=== PATIENT | female | born 1970 | race Caucasian/White ===

== ENCOUNTER 2019-07-09 12:17 | Emergency (ER) | payer MEDICAID, SELFPAY ==
[2019-07-09 12:27] VITALS: BP 139/81; PULSE 85; RESP 16; TEMP 36.4; O2SAT 97; BMI 31.2
--- NOTE | 2019-07-09 12:44 | ECG_ITS ---
Measurements Intervals [place] Rate: 82 P: 58 [place]: 175 QRS: 46 QRSD: 86 T: 58 QT: 354 QTc: 415 SINUS RHYTHM WITH SINUS ARRHYTHMIA LOW QRS VOLTAGE IN PRECORDIAL LEADS [QRS DEFLECTION < 1.0 mV IN CHEST LEADS] NONSPECIFIC T-WAVE ABNORMALITY Compared to ECG 05/14/2019 15:30:07 Low QRS voltage now present Sinus tachycardia no longer present Possible ischemia no longer present T-wave abnormality still present Electronically Signed On 07-09-2019 22:23:42 RUG SCRATCHER by Donta Garnett M.D. [id number]
--- NOTE | 2019-07-09 12:44 | XR_ITS ---
WS: [id number] ONE VIEW CHEST HISTORY: 48 years old Female with chest pain AP upright chest comparison 05/14/2019 FINDINGS: No pneumothorax, pleural effusion, consolidation/atelectasis. Cardiomediastinal silhouette and pulmon viki vascular markings unremarkable. No subdiaphragmatic free air. Prior cholecystectomy. XR/XR chest 1V portable [id number] IMPRESSION: No acute cardiopulmonary findings, and no significant change from 05/14/2019.
--- NOTE | 2019-07-09 12:45 | ED_ITS ---
Entered by Lisandro Enriquez, acting as scribe for Susana Willett DO HPI - Chest Pain General: Chief Complaint: Chest Pain Stated Complaint: cp Time Seen by Provider: 07/09/19 12:44 History of Present Illness: HPI narrative: 48 yo female presents with chest pain. Pt states that she went to a confucianist event today, she started having chest pain and she took an aspirin. Pt states that she waited for about 30 minutes and took a nitro because the pain wouldn't go away after the aspirin. pt states that she has chest heaviness as well. pt states that she has a headache. pt states that she MD complaint: chest pain Associated symptoms: Deny abdominal pain, diaphoresis, dyspnea, fever(s), nausea, palpitations, syncope or vomiting Review of Systems Const: Denies: fever, chills, body aches, change in appetite, change in weight, fatigue, malaise, night sweats or diaphoresis Eyes: Denies: change in vision, blurry vision, blind spots, photophobia, eye discomfort, eye discharge, eye redness or yellow eyes ENMT: Denies: throat pain, uvular edema, enlarged tonsils, painful swallowing, hoarseness, mouth pain, swelling of lips/tongue or oral sores/lesions Card: Reports: chest pain; Denies: palpitations, irregular heart rhythm, edema, swelling of feet/ankles, lightheadedness or syncope Resp: Denies: shortness of breath, productive cough or non-productive cough GI: Denies: abdominal pain, nausea, vomiting, vomiting blood, coffee grounds in vomit, difficulty swallowing or heartburn/indigestion : Denies: flank pain, difficulty urinating, painful urination, urinary frequency, urinary urgency, urinary hesitancy or urinary dribbling Musc: Denies: neck pain, back pain, extremity pain, extremity swelling, joint pain, joint swelling, redness, joint warmth or joint stiffness Skin/Breast: Denies: rash, itching, redness, sensitivity to light, skin pain, skin tenderness, skin swelling or new lesion Neuro: Denies: headache, numbness in extremities, weakness in extremities, changes in sensation, lack of coordination, difficulty walking, frequent falls, dizziness or slurred speech Psych: Denies: anxiety, depression, mood swings, panic attacks, sleeping less or sleeping more Endo: Denies: excessive urination, excessive thirst, tired all the time, cold intolerance, excessive sweating or flushing Sushil/Lymph: Denies: easy bruising, easy bleeding, petechiae, purpura or enlarged lymph nodes PFSH ED PFSH: Statuses (acute, chronic, etc) shown below reflect problem list status as previously entered and may not be historically accurate Medical History COPD (chronic obstructive pulmonary disease) (Acute) CVA (cerebral vascular accident) (Acute) Depression (Acute) Surgical History H/O laparoscopy (Acute) H/O: hysterectomy (Acute) History of cholecystectomy (Acute) History of tubal ligation (Acute) Hx of oophorectomy (Acute) Social History Smoking and tobacco status: never smoked Physical Exam Const: COMMON NORMALS: no apparent distress, oriented x3 and no limitations GENERAL APPEARANCE: cooperative HENMT: COMMON NORMALS: normocephalic HEAD & SCALP: normocephalic THROAT: no uvular edema Eye: COMMON NORMALS: PERRL GENERAL EYE: normal appearance of both eyes VISUAL ACUITY: Yes acuity normal PUPIL: Yes PERRL Neck/C-Spine: COMMON NORMALS: full ROM, no lymphadenopathy, supple and no JVD Lymph: LYMPHATIC: no lymphadenopathy noted Chest: COMMONS NORMALS: inspection of chest normal Resp: COMMON NORMALS: normal respiratory effort Cardio: COMMON NORMALS: no JVD, regular rate and regular rhythm RATE: regular rate RHYTHM: regular rhythm GI: COMMON NORMALS: normal to inspection, nondistended, normoactive bowel sounds : COMMON NORMALS: Yes no CVA tenderness BLADDER/KIDNEY EXAM: Yes no CVA tenderness Back/Pelvis: COMMON NORMALS: no CVA tenderness Extremity: COMMON NORMALS: normal to inspection and full ROM Neuro: COMMON NORMALS: oriented x3 Psych: COMMON NORMALS: mental status grossly normal Skin: COMMON NORMALS: no rashes or lesions noted GENERAL SKIN EXAM: no rashes or lesions noted Course ED course: Patient admitted to room 15, an IV established and labs drawn. CXR and EKG obtained. Patient admiinistered Morphine 4 mg IV and Zofran 4 mg IV. Her cardiac enzymes remained normal x 2 and EKG stable, cxr was read as normal. She continued to complain of pain so she was given Toradol 30 g IV. She was discharged home in stable and improved condition. She was advised to follow up with her PCP. Vital Signs: Vital signs: Vital Signs Temperature 97.5 F L 07/09/19 12:27 Pulse Rate 85 07/09/19 12:27 Respiratory Rate 16 07/09/19 12:27 Blood Pressure 139/81 07/09/19 12:27 Pulse Oximetry 97 07/09/19 12:27 MDM - Chest Pain Lab Data: Labs: Lab Results 07/09/19 07/09/19 07/09/19 Range/Units 13:06 13:06 13:06 WBC 7.3 (4.0-10.0) 10^3/ uL RBC 4.82 (4.1-5.3) 10^6/u L Hgb 13.7 (11.5-15.3) g/dL Hct 41.5 (37.0-47.0) % MCV 86.1 (81-99) fL MCH 28.4 (28.0-34.0) pg MCHC 33.0 (30.0-36.0) g/dL RDW 13.1 (12.1-15.1) % Plt Count 315 (130-400) 10^3/c mm MPV 9.8 (7.4-10.4) fL Neut % (Auto) 59.7 % Lymph % (Auto) 28.3 % [place] % (Auto) 8.3 % Eos % (Auto) 2.8 % Baso % (Auto) 0.6 % Neut # (Auto) 4.4 (1.8-7.7) 10^3/u L Lymph # (Auto) 2.1 (0.8-4.8) 10^3/u L [place] # (Auto) 0.6 (0.2-0.9) 10^3/u L Eos # (Auto) 0.2 (0.0-0.8) 10^3/u L Baso # (Auto) 0.0 (0.0-0.1) 10^3/u L Nucleated RBC % (a uto) 0 % Nucleated RBCs # 0.0 /100WBC PT 13.20 (10.5-13.3) SECO NDS INR 0.97 (0.8-1.2) APTT 28.1 (23.9-36.7) SECO NDS D-Dimer <= 0.27 (0-0.59) ug/mIFE U Sodium 141 (136-145) mmol/L Potassium 3.7 (3.5-5.1) mmol/L Chloride 103 (98-107) mmol/L Carbon Dioxide 27 (22-29) mmol/L Anion Gap 14.7 (5-19) BUN 15 (6-20) mg/dL Creatinine 0.7 (0.5-0.9) mg/dL GFR Calculation 89.7 L (90-130) mL/min Glucose 120 H (65-115) mg/dL Calcium 9.8 (8.5-10.5) mg/dL Total Bilirubin 0.2 (0.15-1.2) mg/dL AST 17 (0-32) U/L ALT 18 (0-33) U/L Alkaline Phosphata se 96 (35-105) IU/L Troponin T Baselin e (0-10) ng/mL NT-Pro-B Natriuret Pep 8 (0-125) pg/mL Total Protein 0.2 L (6.6-8.7) g/dL Albumin 3.9 (3.5-5.2) g/dL Globulin -3.7 L (1.3-4.6) g/dL 07/09/19 Range/Units 13:06 WBC (4.0-10.0) 10^3/ uL RBC (4.1-5.3) 10^6/u L Hgb (11.5-15.3) g/dL Hct (37.0-47.0) % MCV (81-99) fL MCH (28.0-34.0) pg MCHC (30.0-36.0) g/dL RDW (12.1-15.1) % Plt Count (130-400) 10^3/c mm MPV (7.4-10.4) fL Neut % (Auto) % Lymph % (Auto) % [place] % (Auto) % Eos % (Auto) % Baso % (Auto) % Neut # (Auto) (1.8-7.7) 10^3/u L Lymph # (Auto) (0.8-4.8) 10^3/u L [place] # (Auto) (0.2-0.9) 10^3/u L Eos # (Auto) (0.0-0.8) 10^3/u L Baso # (Auto) (0.0-0.1) 10^3/u L Nucleated RBC % (a uto) % Nucleated RBCs # /100WBC PT (10.5-13.3) SECO NDS INR (0.8-1.2) APTT (23.9-36.7) SECO NDS D-Dimer (0-0.59) ug/mIFE U Sodium (136-145) mmol/L Potassium (3.5-5.1) mmol/L Chloride (98-107) mmol/L Carbon Dioxide (22-29) mmol/L Anion Gap (5-19) BUN (6-20) mg/dL Creatinine (0.5-0.9) mg/dL GFR Calculation (90-130) mL/min Glucose (65-115) mg/dL Calcium (8.5-10.5) mg/dL Total Bilirubin (0.15-1.2) mg/dL AST (0-32) U/L ALT (0-33) U/L Alkaline Phosphata se (35-105) IU/L Troponin T Baselin e 6 (0-10) ng/mL NT-Pro-B Natriuret Pep (0-125) pg/mL Total Protein (6.6-8.7) g/dL Albumin (3.5-5.2) g/dL Globulin (1.3-4.6) g/dL Imaging Data^: CXR: Radiologist's impression: Signed Patient: Gale Veloz Unit #: [id number] : 1970 Age/Sex: 48 / F ADM Date: 07/09/19 Loc: ER Room/Bed: Attending Dr: Ordering Provider/Ordering MD: Susana Willett DO Date of Service: 07/09/19 Procedure(s): XR chest 1V portable [id number] Accession Number(s): [id number] Report Number: [id number] WS: [id number] ONE VIEW CHEST HISTORY: 48 years old Female with chest pain AP upright chest comparison 05/14/2019 FINDINGS: No pneumothorax, pleural effusion, consolidation/atelectasis. Cardiomediastinal silhouette and pulmonary vascular markings unremarkable. No subdiaphragmatic free air. Prior cholecystectomy. XR/XR chest 1V portable [id number] IMPRESSION: No acute cardiopulmonary findings, and no significant change from 05/14/2019. Dictated By: Misty Richard MD Signed By: Misty Richard MD Signed Date/Time: 07/09/19 1355 EKG Data^: EKG 1: Attestation: I personally reviewed and interpreted this EKG as follows: EKG interpretation date: 07/09/19 EKG interpretation time: 13:15 Interpretation: Sinus rhythm, vent rate 87 bpm, No st elevation, no ectopy EKG 2: Attestation: I personally reviewed and interpreted this EKG as follows: EKG interpretation date: 07/09/19 EKG interpretation time: 15:13 Prior EKG tracings: available for review Interpretation: Sinus rhythm, no st elevation, vent rate 82 bpm, normal axis Discharge Plan Discharge Patient Disposition: Home, Self-Care Clinical Impression: Atypical chest pain Condition: Stable Discharge Orders: Discharge Order (Routine); Ordered 07/09/19 Ordered By: Susana Willett Referrals: Marina Rapp DO [Primary Care Provider] - Discharge Diet: Usual diet Discharge Activity: Resume usual activity Activity Restrictions/Additional Instructions: Followo up with pcp, use tylenon/motrin for discomfort. Continue current medictaions. Coding Level of Care Code ED Warehouse Helper for Chg Fwd Exam Problem Focused The documentation recorded by the Mina fabian Kialy, accurately reflects the service I personally performed and the decisions made by Brennon arauz Connie, DO
[2019-07-09 13:16] LABS: Basophils % 0.6 %; Eosinophils # 0.2 10^3/uL (0.0-0.8); Eosinophils % 2.8 %; Hematocrit 41.5 % (37.0-47.0); Hemoglobin 13.7 g/dL (11.5-15.3); Lymphocytes # 2.1 10^3/uL (0.8-4.8); Lymphocytes % 28.3 %; Mean Corpuscular Hemoglobin 28.4 pg (28.0-34.0); Mean Corpuscular Volume 86.1 fL (81-99); Mean Platelet Volume 9.8 fL (7.4-10.4); Monocytes # 0.6 10^3/uL (0.2-0.9); Monocytes % 8.3 %; Neutrophils # 4.4 10^3/uL (1.8-7.7); Neutrophils % 59.7 %; Nucleated Red Blood Cells % 0 %; Platelet Count 315 10^3/cmm (130-400); Red Blood Count 4.82 10^6/uL (4.1-5.3); Red Cell Distribution Width 13.1 % (12.1-15.1); White Blood Count 7.3 10^3/uL (4.0-10.0)
[2019-07-09 13:35] LABS: INR 0.97 (0.8-1.2); Partial Thromboplastin Time 28.1 SECONDS (23.9-36.7)
[2019-07-09 13:38] LABS: D Dimer <= 0.27 ug/mIFEU (0-0.59)
[2019-07-09] MEDS: morphine 4 mg/mL SDV 1 mL 2 MG IVP (13:38)
[2019-07-09] MEDS: ondansetron 2 mg/ML SDV 2 mL 4 MG IVP (13:38)
[2019-07-09] MEDS: sodium chloride 0.9% 500 ML 999 ML IV (13:38)
[2019-07-09 13:40] LABS: Troponin(5th) Baseline 6 ng/mL (0-10)
[2019-07-09 13:49] LABS: Alanine Aminotransferase 18 U/L (0-33); Albumin Level 3.9 g/dL (3.5-5.2); Alkaline Phosphatase 96 IU/L (35-105); Anion Gap 14.7 (5-19); Aspartate Amino Transferase 17 U/L (0-32); Blood Urea Nitrogen 15 mg/dL (6-20); Calcium 9.8 mg/dL (8.5-10.5); Carbon Dioxide 27 mmol/L (22-29); Chloride 103 mmol/L (98-107); Glomerular Filtration Rate 89.7 mL/min (90-130); Glucose 120 mg/dL (65-115); NT Pro B Type Natriuretic Pept 8 pg/mL (0-125); Potassium 3.7 mmol/L (3.5-5.1); Sodium 141 mmol/L (136-145); Total Bilirubin 0.2 mg/dL (0.15-1.2); Total Protein 0.2 g/dL (6.6-8.7)
--- NOTE | 2019-07-09 14:44 | ECG_ITS ---
Measurements Intervals [place] Rate: 87 P: 72 [place]: 171 QRS: 71 QRSD: 82 T: 149 QT: 366 QTc: 442 SINUS RHYTHM LOW QRS VOLTAGE IN PRECORDIAL LEADS [QRS DEFLECTION < 1.0 mV IN CHEST LEADS] NONSPECIFIC T-WAVE ABNORMALITY Compared to ECG 05/14/2019 15:30:07 Low QRS voltage now present Sinus tachycardia no longer present Possible ischemia no longer present T-wave abnormality still present Electronically Signed On 07-09-2019 22:25:37 PROPERTY LOSS INSURANCE CLAIM ADJUSTER by Donta Garnett M.D. [email or web address]
[2019-07-09 14:47] LABS: Globulin -3.7 g/dL (1.3-4.6)
[2019-07-09] MEDS: ketorolac 30 mg/mL INJ IVP (15:40)
[2019-07-09 15:49] LABS: Troponin 5 2HR Delta 0 ABS# (0-10)
[2019-07-09 16:05] VITALS: BP 122/74; PULSE 81; RESP 18; O2SAT 97
== END 2019-07-09 16:06 | disposition home or self-care (01) ==
PROVIDERS: Emergency Provider Emergency Medicine Emergency Medical Services; Family Provider Family Medicine; PCP Family Medicine
DX: R07.89 Other chest pain (principal); J44.9 Chronic obstructive pulmonary disease, unspecified; Z86.73 Personal history of transient ischemic attack (TIA), and cerebral infarction without residual deficits
CPT/HCPCS: 36415; 71045; 80053; 83880; 84484; 85025; 85378; 85610; 85730; 93005; 96360; 96374; 96375; 99282; 99284; J1885; J2270; J2405; J7040

== ENCOUNTER → 2019-07-18 07:54 | Outpatient (BNVA) | payer MEDICAID, SELFPAY | PROVIDERS: Family Provider Family Medicine; PCP Family Medicine; Visit Provider Nurse Practitioner | DX: F33.1 Major depressive disorder, recurrent, moderate (principal) | CPT/HCPCS: 99213 ==

== ENCOUNTER 2019-08-17 17:15 | Outpatient (CLI) | payer OTHER, SELFPAY ==
--- NOTE | 2019-08-17 | XR_ITS ---
WS: [id number] Left wrist, 3 views, 08/17/2019 Clinical Data: LEFT WRIST PAIN Comparison: None. Findings: No fractures or dislocations are seen. The carpal bones are intact. There is no soft tissue swelling. The distal radius and ulna are not remarkable. XR/XR wrist LT min 3V* [id number] Impression: Negative left wrist.
== END 2019-08-17 17:16 | disposition home or self-care (01) ==
LOC: RADOUTREAD 08-18 13:14
PROVIDERS: Family Provider Family Medicine; PCP Family Medicine; Visit Provider Nurse Practitioner
DX: Z01.89 Encounter for other specified special examinations (principal)

== ENCOUNTER → 2019-08-28 11:09 | Outpatient (BNVA) | payer OTHER, MEDICAID, SELFPAY | PROVIDERS: Family Provider Family Medicine; PCP Family Medicine; Visit Provider Social Worker Clinical | DX: F33.1 Major depressive disorder, recurrent, moderate (principal) | CPT/HCPCS: 90834 ==

== ENCOUNTER → 2019-09-18 07:36 | Outpatient (BNVA) | payer MEDICAID, SELFPAY | PROVIDERS: Family Provider Family Medicine; PCP Family Medicine; Visit Provider Social Worker Clinical | DX: F33.1 Major depressive disorder, recurrent, moderate (principal) | CPT/HCPCS: 90832 ==

== ENCOUNTER 2019-09-23 16:13 | Emergency (ER) | payer MEDICAID, SELFPAY ==
[2019-09-23 16:18] VITALS: BP 131/90; PULSE 84; RESP 18; TEMP 36.9; O2SAT 96; BMI 34.9
--- NOTE | 2019-09-23 16:21 | ECG_ITS ---
Measurements Intervals [place] Rate: 84 P: 62 [place]: 169 QRS: 46 QRSD: 86 T: 75 QT: 357 QTc: [address] & T-WAVE ABNORMALITY Compared to ECG 07/09/2019 15:10:34 Sinus arrhythmia no longer present T-wave abnormality still present Electronically Signed On 09-24-2019 20:21:24 CDT by Ace Nobles M.D. [id number]
--- NOTE | 2019-09-23 16:21 | XRR_ITS ---
PROCEDURE INFORMATION: Exam: XR Chest, 1 View Exam date and time: 09/23/2019 4:23 PM Age: 48 years old Clinical indication: Left-sided chest pain; Additional info: Cp TECHNIQUE: Imaging protocol: XR of the chest Views: 1 view. COMPARISON: CR XR chest 1V portable [id number] 07/09/2019 12:52 PM FINDINGS: Lungs: Unremarkable. No consolidation. There is shallow inspiration with mild basilar volume loss. There is unchanged mild basilar fibrosis. Unchanged nonspecific elevation of the right hemidiaphragm. Pleural space: Unremarkable. No pleural effusion. No pneumothorax. Heart/Mediastinum: Unremarkable. No cardiomegaly. Bones/joints: No acute abnormality. XR/XR chest 1V portable [id number] IMPRESSION: No acute findings. Unchanged exam.
[2019-09-23 16:40] LABS: Basophils # 0.1 10^3/uL (0.0-0.1); Basophils % 0.7 %; Eosinophils # 0.2 10^3/uL (0.0-0.8); Eosinophils % 1.7 %; Hematocrit 43.7 % (37.0-47.0); Hemoglobin 14.2 g/dL (11.5-15.3); Lymphocytes % 21.7 %; Mean Corpuscular HGB Conc 32.5 g/dL (30.0-36.0); Mean Corpuscular Hemoglobin 28.7 pg (28.0-34.0); Mean Corpuscular Volume 88.5 fL (81-99); Mean Platelet Volume 10.3 fL (7.4-10.4); Monocytes # 0.8 10^3/uL (0.2-0.9); Monocytes % 8.5 %; Neutrophils # 6.2 10^3/uL (1.8-7.7); Neutrophils % 67.1 %; Nucleated Red Blood Cells % 0 %; Platelet Count 268 10^3/cmm (130-400); Red Blood Count 4.94 10^6/uL (4.1-5.3); Red Cell Distribution Width 12.8 % (12.1-15.1); White Blood Count 9.2 10^3/uL (4.0-10.0)
[2019-09-23] MEDS: aspirin 81 mg Chew Tablet 324 MG PO (16:45)
[2019-09-23 16:50] LABS: INR 0.95 (0.8-1.2)
[2019-09-23 16:56] LABS: Alanine Aminotransferase 19 U/L (0-33); Albumin Level 4.2 g/dL (3.5-5.2); Alkaline Phosphatase 95 IU/L (35-105); Anion Gap 13.5 (5-19); Blood Urea Nitrogen 10 mg/dL (6-20); Calcium 9.6 mg/dL (8.5-10.5); Carbon Dioxide 28 mmol/L (22-29); Chloride 101 mmol/L (98-107); Globulin 3.9 g/dL (1.3-4.6); Glomerular Filtration Rate 89.7 mL/min (90-130); Glucose 122 mg/dL (65-115); Lipase 20 U/L (13-60); Magnesium 2.3 mg/dL (1.7-2.3); Osmolality Calculated 285 mOsm/kg (285-295); Potassium 3.5 mmol/L (3.5-5.1); Sodium 139 mmol/L (136-145); Total Bilirubin 0.3 mg/dL (0.15-1.2); Total Protein 8.1 g/dL (6.6-8.7)
[2019-09-23 16:59] LABS: Troponin(5th) Baseline 6 ng/mL (0-10)
[2019-09-23 17:06] LABS: Aspartate Amino Transferase 22 U/L (0-32)
[2019-09-23] MEDS: ondansetron 2 mg/ML SDV 2 mL 4 MG IVP (17:11)
[2019-09-23] MEDS: nitroglycerin 0.4 mg sublingual Tablet SUBLINGUAL (17:11)
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
[2019-09-23 17:18] VITALS: RESP 17
[2019-09-23 18:21] VITALS: BP 122/75; PULSE 70; RESP 17; O2SAT 97
[2019-09-23 18:50] LABS: Troponin 5 2HR Delta 0 ABS# (0-10)
[2019-09-23 19:14] VITALS: BP 104/71; PULSE 88; RESP 18; O2SAT 94
--- NOTE | 2019-09-23 22:21 | ECG_ITS ---
Measurements Intervals [place] Rate: 82 P: 61 [place]: 176 QRS: 46 QRSD: 85 T: 67 QT: 373 QTc: 437 SINUS RHYTHM NONSPECIFIC T-WAVE ABNORMALITY Compared to ECG 07/09/2019 15:10:34 Sinus arrhythmia no longer present T-wave abnormality still present Electronically Signed On 09-24-2019 20:25:33 CDT by Ace Nobles M.D. [id number]
== END 2019-09-23 19:17 | disposition home or self-care (01) ==
PROVIDERS: Emergency Medicine; Emergency Provider Emergency Medicine; Family Provider Family Medicine; PCP Family Medicine
DX: R07.89 Other chest pain (principal); Z79.82 Long term (current) use of aspirin; J44.9 Chronic obstructive pulmonary disease, unspecified; Z86.73 Personal history of transient ischemic attack (TIA), and cerebral infarction without residual deficits
CPT/HCPCS: 12345; 71045; 80053; 83690; 83735; 84484; 85025; 85610; 93005; 96374; 96375; 99283; 99284; J2405

== ENCOUNTER → 2019-10-13 07:51 | Outpatient (BNVA) | payer MEDICAID, SELFPAY | PROVIDERS: Family Provider Family Medicine; PCP Family Medicine; Visit Provider Social Worker Clinical | DX: F33.1 Major depressive disorder, recurrent, moderate (principal) | CPT/HCPCS: 90832 ==

== ENCOUNTER → 2019-10-25 07:38 | Outpatient (BNVA) | payer MEDICAID, SELFPAY | PROVIDERS: Family Provider Family Medicine; PCP Family Medicine; Visit Provider Nurse Practitioner | DX: F33.1 Major depressive disorder, recurrent, moderate (principal) | CPT/HCPCS: 99214 ==

== ENCOUNTER → 2019-10-27 07:49 | Outpatient (BNVA) | payer MEDICAID, SELFPAY | PROVIDERS: Family Provider Family Medicine; PCP Family Medicine; Visit Provider Social Worker Clinical | DX: F33.1 Major depressive disorder, recurrent, moderate (principal) | CPT/HCPCS: 90834 ==

== ENCOUNTER 2019-11-02 14:02 | Emergency (ER) | payer MEDICAID, SELFPAY ==
[2019-11-02 14:29] VITALS: BP 129/84; PULSE 100; RESP 18; TEMP 36.9; O2SAT 95; BMI 36.1
[2019-11-02 15:02] VITALS: O2SAT 94
[2019-11-02 15:12] LABS: Basophils # 0.1 10^3/uL (0.0-0.1); Basophils % 0.6 %; Eosinophils # 0.2 10^3/uL (0.0-0.8); Eosinophils % 2.4 %; Hematocrit 43.2 % (37.0-47.0); Hemoglobin 13.9 g/dL (11.5-15.3); Lymphocytes # 2.1 10^3/uL (0.8-4.8); Lymphocytes % 20.8 %; Mean Corpuscular HGB Conc 32.2 g/dL (30.0-36.0); Mean Corpuscular Hemoglobin 28.6 pg (28.0-34.0); Mean Corpuscular Volume 88.9 fL (81-99); Monocytes # 0.9 10^3/uL (0.2-0.9); Neutrophils # 6.7 10^3/uL (1.8-7.7); Neutrophils % 66.8 %; Nucleated Red Blood Cells % 0 %; Platelet Count 289 10^3/cmm (130-400); Red Blood Count 4.86 10^6/uL (4.1-5.3); Red Cell Distribution Width 13.2 % (12.1-15.1)
[2019-11-02 15:20] LABS: Add Urine Microscopic? NO
--- NOTE | 2019-11-02 15:23 | CT_ITS ---
WS: [id number] CT abdomen pelvis w con* [id number] REASON FOR EXAM: abd pain IV CONTRAST ADMINISTERED: Omnipaque 300, 95 mL. TOTAL EXAM DLP: 1310.[address] scans at [facility] use at least one of these dose optimization techniques: automat ed exposure control; mA and/or kV adjustment per patient size (includes targeted exams where dose is matched to clinical indication); or iterative reconstruction. FINDINGS: The lower lung colon and mediastinum were normal. The liver show normal enhancement there is no lesions seen no masses. The gallbladder surgically absent. The pancreas head, body, tail were normal. The spleen, stomach, right and left adrenal glands were normal. The aorta inferior vena cava were normal. The right and left kidneys were normal no stones no hydronephrosis no hydroureter. The right lower quadrant shows normal appearance of the appendix no inflammatory changes are seen. The remaining colon was normal no diverticulosis or diverticulitis. The small bowel patterns are normal and not dilated no thickening of the rodriguez are seen. No umbilical hernia is seen. In the pelvis the bladder was normal. The uterus is and ovaries are not seen. The rectum was normal. The lumbar spine and bony pelvis were normal. CT/CT abdomen pelvis w con* [id number] IMPRESSION: Normal CT abdomen pelvis with and without contrast enhancement.
--- NOTE | 2019-11-02 15:23 | XR_ITS ---
WS: [id number] XR chest 1V portable [id number] REASON FOR EXAM: dyspnea/cough FINDINGS: The heart and mediastinal interfaces normal. The peripheral lungs are well aerated. No pneumonia, congestive failure, pleural effusion, pulmonary edema. The overall appearance the chest is similar to September 23, 2019. The hilum and apices normal. No osseous abnormalities. XR/XR chest 1V portable [id number] IMPRESSION: Negative chest for active pathology.
--- NOTE | 2019-11-02 15:24 | ED_ITS ---
HPI - Abdominal Pain General: Chief Complaint: Abdominal Pain Stated Complaint: right sided abd pain Time Seen by Provider: 11/02/19 14:28 History of Present Illness: HPI narrative: 48-year-old female comes right lower quadrant pain for the last 3 days she has nausea she noticed that the pain is worse when she eats. She denies any hematemesis or coffee-ground emesis she has had a few episodes of diarrhea. This can wax and wane a bit on and off she is had a temp at night up to 101 it seemed to resolve during the day. She denies dysuria urgency or frequency she also notes little bit of increased nonproductive cough. Is a secondary note she has been seeing Dr. Nobles recently had some atypical chest pain she was started on isosorbide mononitrate and is scheduled for an outpatient stress test. She denies any other family members being sick recently. MD elicited complaint: abdominal pain Onset (ago): day(s) (3) Pain Consistency: constant and colicky Location: RLQ Severity: severe Quality: cramping and aching Exacerbating factors: eating and movement Relieving factors: rest Associated Symptoms: Reports anorexia, bloating, GI cramping, diarrhea, dyspepsia, fever(s), heartburn, nausea and poor appetite; Denies change in bowel habits, change in stool character, coffee ground emesis, constipation, dysuria, hematochezia, hematuria, hematemesis, fecal incontinence, melena and vomiting Treatments prior to arrival: antacids Review of Systems Const: Reports: fever(s) ENMT: Denies: throat pain, ear or mastoid pain, nasal discharge or nasal congestion Card: Denies: chest pain, edema, dyspnea on exertion or orthopnea Resp: Denies: dyspnea, productive cough or non-productive cough GI: Reports: nausea, heartburn, diarrhea, bloating and GI cramping; Denies: vomiting, hematemesis, coffee ground emesis, constipation, fecal incontinence, change in bowel habits, change in stool character, hematochezia or melena : Denies: dysuria or hematuria Skin/Breast: Denies: rash or pruritus PFSH ED PFSH: Medical History (Updated 11/02/19 @ 16:47 by Sonny Torres DO) COPD (chronic obstructive pulmonary disease) CVA (cerebral vascular accident) Depression Major depressive disorder, recurrent, moderate Surgical History H/O laparoscopy H/O: hysterectomy History of cholecystectomy History of tubal ligation Hx of oophorectomy Family History (Updated 10/18/19 @ 10:37 by Ana Wheeler RN) Father CAD (coronary artery disease) Cancer Diabetes Hyperlipidemia Mother Hypertension Psychiatric illness Brother Hypertension Denies family history of Clotting disorder Dementia Chronic kidney disease (CKD) Suicide Anesthesia complication Bleeding disorder Family history of premature coronary artery disease Lung disease Stroke Social History (Updated 10/18/19 @ 10:38 by Ana Wheeler RN) Smoking and tobacco status: never smoked Second hand smoke exposure: No Alcohol intake: current Alcohol intake frequency: holidays/special occasions only Alcohol type: other Physical Exam Const: COMMON NORMALS: no acute distress GENERAL APPEARANCE: cooperative and comfortable ORIENTATION/CONSCIOUSNESS: Yes awake, Yes oriented to person, Yes oriented to place and Yes oriented to time Eye: COMMON NORMALS: Equal, round and reactive pupils present, EOMs intact bilaterally, conjunctivae normal and no scleral icterus CONJUNCTIVA: Yes conjunctivae normal PUPIL: Yes Equal, round and reactive pupils present Neck/C-Spine: COMMON NORMALS: full ROM, no lymphadenopathy, supple and no JVD Lymph: LYMPHATIC: no lymphadenopathy noted and no lymphedema noted Resp: COMMON NORMALS: normal respiratory effort, No retractions, No use of accessory muscles and clear to auscultation bilaterally AUSCULTATION: clear to auscultation bilaterally Cardio: COMMON NORMALS: no JVD, regular rate, regular rhythm and No murmurs present (Cardio) RATE: regular rate RHYTHM: regular rhythm GI: COMMON NORMALS: No hepatosplenomegaly present AUSCULTATION: Yes Hypoactive bowel sounds present PALPATION: Yes Tenderness to palpation present (GI) Details: RLQ, Yes Guarding due to palpation present (GI) in the RLQ and Yes No hepatosplenomegaly present Extremity: COMMON NORMALS: normal to inspection, capillary refill normal, no clubbing, cyanosis or edema, no calf tenderness and no pedal edema Neuro: SENSORIUM/ORIENTATION: Yes oriented to person, Yes oriented to place and Yes oriented to time Skin: COMMON NORMALS: no rashes or lesions noted GENERAL SKIN EXAM: no rashes or lesions noted Course Vital Signs: Vital signs: Vital Signs Temperature 98.4 F 11/02/19 14:29 Pulse Rate 94 11/02/19 17:35 Respiratory Rate 18 11/02/19 17:35 Blood Pressure 110/68 11/02/19 17:35 Pulse Oximetry 93 11/02/19 17:35 MDM - Abdominal Pain MDM Narrative: Medical decision making narrative: Reviewed findings patient no significant findings on the CT or lab work she is doing somewhat better. Some of may be bowel spasm. On repeat abdominal exam she has no abnormality. Will discharge home with Zofran for nausea dicyclomine as needed recheck if she has any further problems she should return to the emergency room. Lab Data: Labs: Lab Results 11/02/19 11/02/19 11/02/19 Range/Units 15:00 15:00 15:00 WBC 10.0 (4.0-10.0) 10^3/ uL RBC 4.86 (4.1-5.3) 10^6/u L Hgb 13.9 (11.5-15.3) g/dL Hct 43.2 (37.0-47.0) % MCV 88.9 (81-99) fL MCH 28.6 (28.0-34.0) pg MCHC 32.2 (30.0-36.0) g/dL RDW 13.2 (12.1-15.1) % Plt Count 289 (130-400) 10^3/c mm MPV 10.0 (7.4-10.4) fL Neut % (Auto) 66.8 % Lymph % (Auto) 20.8 % [place] % (Auto) 9.0 % Eos % (Auto) 2.4 % Baso % (Auto) 0.6 % Neut # (Auto) 6.7 (1.8-7.7) 10^3/u L Lymph # (Auto) 2.1 (0.8-4.8) 10^3/u L [place] # (Auto) 0.9 (0.2-0.9) 10^3/u L Eos # (Auto) 0.2 (0.0-0.8) 10^3/u L Baso # (Auto) 0.1 (0.0-0.1) 10^3/u L Nucleated RBC % (a uto) 0 % Nucleated RBCs # 0.0 /100WBC Sodium 142 (136-145) mmol/L Potassium 3.5 (3.5-5.1) mmol/L Chloride 104 (98-107) mmol/L Carbon Dioxide 27 (22-29) mmol/L Anion Gap 14.5 (5-19) BUN 12 (6-20) mg/dL Creatinine 0.9 (0.5-0.9) mg/dL GFR Calculation 67.1 L (90-130) mL/min Glucose 113 (65-115) mg/dL Calculated Osmolal ity 291 (285-295) mOsm/k g Lactate 1.4 (0.5-2.2) mmol/L Calcium 9.6 (8.5-10.5) mg/dL Total Bilirubin 0.4 (0.15-1.2) mg/dL AST 20 (0-32) U/L ALT 22 (0-33) U/L Alkaline Phosphata se 104 (35-105) IU/L Total Protein 7.6 (6.6-8.7) g/dL Albumin 4.4 (3.5-5.2) g/dL Globulin 3.2 (1.3-4.6) g/dL Lipase 25 (13-60) U/L Urine Color (Yellow) Urine Appearance (CLEAR) Urine pH (5-7) Ur Specific Gravit y (1.005-1.030) Urine Protein (Negative) Urine Glucose (UA) (Normal) Urine Ketones (Negative) Urine Blood (Negative) Urine Nitrate (Negative) Urine Bilirubin (NEGATIVE) Urine Urobilinogen (Negative) mg/dL Ur Leukocyte Shari ase (Negative) Serum Ketones (Negative) 11/02/19 11/02/19 Range/Units 15:00 15:00 WBC (4.0-10.0) 10^3/ uL RBC (4.1-5.3) 10^6/u L Hgb (11.5-15.3) g/dL Hct (37.0-47.0) % MCV (81-99) fL MCH (28.0-34.0) pg MCHC (30.0-36.0) g/dL RDW (12.1-15.1) % Plt Count (130-400) 10^3/c mm MPV (7.4-10.4) fL Neut % (Auto) % Lymph % (Auto) % [place] % (Auto) % Eos % (Auto) % Baso % (Auto) % Neut # (Auto) (1.8-7.7) 10^3/u L Lymph # (Auto) (0.8-4.8) 10^3/u L [place] # (Auto) (0.2-0.9) 10^3/u L Eos # (Auto) (0.0-0.8) 10^3/u L Baso # (Auto) (0.0-0.1) 10^3/u L Nucleated RBC % (a uto) % Nucleated RBCs # /100WBC Sodium (136-145) mmol/L Potassium (3.5-5.1) mmol/L Chloride (98-107) mmol/L Carbon Dioxide (22-29) mmol/L Anion Gap (5-19) BUN (6-20) mg/dL Creatinine (0.5-0.9) mg/dL GFR Calculation (90-130) mL/min Glucose (65-115) mg/dL Calculated Osmolal ity (285-295) mOsm/k g Lactate (0.5-2.2) mmol/L Calcium (8.5-10.5) mg/dL Total Bilirubin (0.15-1.2) mg/dL AST (0-32) U/L ALT (0-33) U/L Alkaline Phosphata se (35-105) IU/L Total Protein (6.6-8.7) g/dL Albumin (3.5-5.2) g/dL Globulin (1.3-4.6) g/dL Lipase (13-60) U/L Urine Color Yellow (Yellow) Urine Appearance Clear (CLEAR) Urine pH 5 (5-7) Ur Specific Gravit y 1.030 (1.005-1.030) Urine Protein Neg (Negative) Urine Glucose (UA) Norm (Normal) Urine Ketones Negative (Negative) Urine Blood Neg (Negative) Urine Nitrate Negative (Negative) Urine Bilirubin Neg (NEGATIVE) Urine Urobilinogen 1 H (Negative) mg/dL Ur Leukocyte Shari ase Negative (Negative) Serum Ketones Negative (Negative) Discharge Plan Discharge Patient Disposition: Home, Self-Care Clinical Impression: Abdominal pain Condition: Stable Prescriptions: New Zofran 4 mg tablet 4 mg PO Q6H PRN (Reason: nausea and vomiting) Qty: 20 RF: 0 dicyclomine 20 mg tablet 20 mg PO QID Qty: 20 RF: 0 No Action fluoxetine 20 mg/5 mL (4 mg/mL) solution 60 mg PO DAILY Qty: 450 RF: 1 isosorbide mononitrate 30 mg tablet extended release 24 hr 30 mg PO DAILY Qty: 30 RF: 6 aspirin [Aspir-81] 81 mg Tablet,Delayed Release (Dr/Ec) 81 mg PO DAILY RF: 0 nitroglycerin [Nitrostat] 0.4 mg Tablet, Sublingual 0.4 mg SUBLINGUAL Q5M PRN (Reason: Chest Pain) RF: 0 ibuprofen 800 mg tablet 800 mg PO Q8H PRN (Reason: pain) Qty: 30 RF: 0 Discharge Orders: Discharge Order (Routine); Ordered 11/02/19 Ordered By: Sonny Torres Referrals: Marina Rapp DO [Primary Care Provider] - Discharge Diet: Clear Liquid Discharge Activity: Increase activity as tolerated Patient Instructions: Abdominal Pain (ED) Discharge Date/Time: 11/02/19 17:30 Coding Level of Care Code ED Communication Instructor for Chg Fwd Exam Comprehensive
[2019-11-02 15:25] LABS: Bilirubin Urine Neg (NEGATIVE); Blood Urine Neg (Negative); Glucose Urine UA Norm (Normal); Ketone (Acetest) Serum Negative (Negative); Ketones Urine Negative (Negative); Leukocyte Esterase Urine Negative (Negative); Nitrate Urine Negative (Negative); Protein Urine Neg (Negative); Urine Appearance Clear (CLEAR); Urine Color Yellow (Yellow); Urobilinogen Urine 1 mg/dL (Negative); pH Urine 5 (5-7)
[2019-11-02 15:29] LABS: Alanine Aminotransferase 22 U/L (0-33); Albumin Level 4.4 g/dL (3.5-5.2); Alkaline Phosphatase 104 IU/L (35-105); Anion Gap 14.5 (5-19); Aspartate Amino Transferase 20 U/L (0-32); Blood Urea Nitrogen 12 mg/dL (6-20); Calcium 9.6 mg/dL (8.5-10.5); Carbon Dioxide 27 mmol/L (22-29); Chloride 104 mmol/L (98-107); Globulin 3.2 g/dL (1.3-4.6); Glomerular Filtration Rate 67.1 mL/min (90-130); Glucose 113 mg/dL (65-115); Lactate (Lactic Acid level) 1.4 mmol/L (0.5-2.2); Lipase 25 U/L (13-60); Osmolality Calculated 291 mOsm/kg (285-295); Potassium 3.5 mmol/L (3.5-5.1); Sodium 142 mmol/L (136-145); Total Bilirubin 0.4 mg/dL (0.15-1.2); Total Protein 7.6 g/dL (6.6-8.7)
[2019-11-02] MEDS: ondansetron 2 mg/ML SDV 2 mL 4 MG IVP (15:45)
[2019-11-02] MEDS: sodium chloride 0.9% 1,000 ML 999 ML IV (15:45)
[2019-11-02] MEDS: morphine 4 mg/mL SDV 1 mL IVP (15:45)
[2019-11-02 15:50] VITALS: BP 119/70; PULSE 100; O2SAT 95
[2019-11-02] MEDS: iohexol 300 mg/mL 100 mL Btl IV (16:24)
[2019-11-02 17:35] VITALS: BP 110/68; PULSE 94; RESP 18; O2SAT 93
== END 2019-11-02 17:30 | disposition home or self-care (01) ==
PROVIDERS: Emergency Provider Family Medicine; PCP Family Medicine
DX: R10.9 Unspecified abdominal pain (principal); Z79.82 Long term (current) use of aspirin; J44.9 Chronic obstructive pulmonary disease, unspecified; Z86.73 Personal history of transient ischemic attack (TIA), and cerebral infarction without residual deficits
CPT/HCPCS: 12345; 36415; 71045; 74177; 80053; 81003; 82009; 83605; 83690; 85025; 87040; 96360; 96361; 96374; 96375; 99283; 99284; J2270; J2405; J7030; Q9967

== ENCOUNTER → 2019-11-14 07:52 | Outpatient (BNVA) | payer MEDICAID, SELFPAY | PROVIDERS: PCP Family Medicine; Visit Provider Social Worker Clinical | DX: F33.1 Major depressive disorder, recurrent, moderate (principal) | CPT/HCPCS: 90832 ==

== ENCOUNTER 2019-11-15 20:56 | Emergency (ER) | payer MEDICAID, SELFPAY ==
[2019-11-15 20:58] VITALS: BP 156/101; PULSE 103; RESP 20; TEMP 36.8; O2SAT 97; BMI 30.1
--- NOTE | 2019-11-15 21:04 | CTR_ITS ---
PROCEDURE INFORMATION: Exam: CT Head Without Contrast Exam date and time: 11/15/2019 9:10 PM Age: 48 years old Clinical indication: Altered mental status/memory loss and speech disturbance; Additional info: Symptoms of acute stroke TECHNIQUE: Imaging protocol: Computed tomography of the head without contrast. Radiation optimization: All CT scans at this facility use at least one of these dose optimization techniques: automated exposure control; mA and/or kV adjustment per patient size (includes targeted exams where dose is matched to clinical indication); or iterative reconstruction. Other technique: STROKE PROTOCOL was implemented. COMPARISON: No relevant prior studies available. RADIATION DOSE METRICS: Total DLP (mGy-cm): 766.97 FINDINGS: Brain: Normal. No hemorrhage or CT evidence of acute infarction is seen. No mass effect. Ventricles: Normal. No ventriculomegaly. Bones/joints: Unremarkable. No acute fracture. Sinuses: Visualized sinuses are unremarkable. No fluid levels. Mastoid air cells: Visualized mastoid air cells are well aerated. Soft tissues: Unremarkable. CT/CT head wo con* [id number] IMPRESSION: No acute intracranial abnormality. ASSESSMENT: ASPECTS ([place] Stroke Program Early CT Score) is 10. Radiation Dose CTDIVOL = (mGy): DLP = 766.97 (mGy-cm)
--- NOTE | 2019-11-15 21:05 | ECG_ITS ---
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 Measurements Intervals [place] Rate: 106 P: 64 RI: 144 QRS: 69 QRSD: 90 T: 74 QT: 336 QTc: 446 Interpretive Statements SINUS TACHYCARDIA NONSPECIFIC T-WAVE ABNORMALITY Compared to ECG 09/23/2019 19:02:52 Sinus rhythm no longer present T-wave abnormality still present Electronically Signed On 11-16-2019 16:26:17 CDT by Mckenzie Argueta M.D. [id number]
--- NOTE | 2019-11-15 21:07 | PC.NURSE ---
Blood glucose is 101, charge nurse and ER doctor are aware
--- NOTE | 2019-11-15 21:13 | CTR_ITS ---
PROCEDURE INFORMATION: Exam: CT Angiography Head With Contrast Exam date and time: 11/15/2019 9:15 PM Age: 48 years old Clinical indication: Speech disturbance and weakness; Additional info: Stroke TECHNIQUE: Imaging protocol: Computed tomography angiography of the head with intravenous contrast. 3D rendering: MIP and/or 3D reconstructed images were created by the technologist. Radiation optimization: All CT scans at this facility use at least one of these dose optimization techniques: automated exposure control; mA and/or kV adjustment per patient size (includes targeted exams where dose is matched to clinical indication); or iterative reconstruction. Contrast material: VISI 320; Contrast volume: 95 ml; Contrast route: INTRAVENOUS (IV); COMPARISON: CT head wo con* [id number] 11/15/2019 9:03 PM RADIATION DOSE METRICS: Total DLP (mGy-cm): 2227.18 FINDINGS: Anterior cerebral arteries: No occlusion or significant stenosis. No aneurysm. Right internal carotid artery: Intracranial segment is patent with no significant stenosis or occlusion. No aneurysm. Right middle cerebral artery: No occlusion or significant stenosis. No aneurysm. Right posterior cerebral artery: No occlusion or significant stenosis. No aneurysm. Right vertebral artery: No occlusion or significant stenosis. No aneurysm. Left internal carotid artery: Intracranial segment is patent with no significant stenosis or occlusion. No aneurysm. Left middle cerebral artery: No occlusion or significant stenosis. No aneurysm. Left posterior cerebral artery: No occlusion or significant stenosis. No aneurysm. Left vertebral artery: No occlusion or significant stenosis. No aneurysm. Basilar artery: No occlusion or significant stenosis. No aneurysm. IMPRESSION: Patent intracranial arteries. PROCEDURE INFORMATION: Exam: CT Angiography Neck With Contrast Exam date and time: 11/15/2019 9:15 PM Age: 48 years old Clinical indication: Speech disturbance and weakness; Additional info: Stroke TECHNIQUE: Imaging protocol: Computed tomography angiography of the neck with intravenous contrast. 3D rendering: MIP and/or 3D reconstructed images were created by the technologist. Radiation optimization: All CT scans at this facility use at least one of these dose optimization techniques: automated exposure control; mA and/or kV adjustment per patient size (includes targeted exams where dose is matched to clinical indication); or iterative reconstruction. Contrast material: VISI 320; Contrast volume: 95 ml; Contrast route: INTRAVENOUS (IV); COMPARISON: none available. RADIATION DOSE METRICS: Total DLP (mGy-cm): 2227.18 FINDINGS: Right common carotid artery: No stenosis. No dissection or occlusion. Right internal carotid artery: No stenosis of the extracranial segment. No dissection or occlusion. Right external carotid artery: No occlusion or stenosis of the origin. Right vertebral artery: No stenosis. No dissection or occlusion. Left common carotid artery: No stenosis. No dissection or occlusion. Left internal carotid artery: No stenosis of the extracranial segment. No dissection or occlusion. Left external carotid artery: No occlusion or stenosis of the origin. Left vertebral artery: No stenosis. No dissection or occlusion. Bones/joints: No acute fracture. Soft tissues: Normal. No significant soft tissue swelling. CT/CT angio headneck* [id number] IMPRESSION: Patent neck carotid and vertebral arteries. Radiation Dose CTDIVOL = (mGy): DLP = 2227.18~2227.18 (mGy-cm)
[2019-11-15] MEDS: iodixanol 320 mg/mL 100mL Btl IV (21:20)
--- NOTE | 2019-11-15 21:29 | PC.NURSE ---
Informed doctor that when placing patient in the gown she was able to sit up and move her arms. After completing her EKG she was able to verbally respond.
--- NOTE | 2019-11-15 21:31 | PC.NURSE ---
pt states that she was putting groceries away when she developed CP. went in her room and laid down. pt stated that family told her they were trying to talk to her but she wasnt able to verbally respond. pt said that she also felt weak when she went and laid down. scheduled for stress test to determine cause of CP Rona at bedside to perform NIHSS. NIHSS of 1 per MD Rona
[2019-11-15 21:35] LABS: Alanine Aminotransferase 23 U/L (0-33); Albumin Level 4.4 g/dL (3.5-5.2); Alkaline Phosphatase 92 IU/L (35-105); Anion Gap 15.9 (5-19); Aspartate Amino Transferase 23 U/L (0-32); Blood Urea Nitrogen 9 mg/dL (6-20); Calcium 9.7 mg/dL (8.5-10.5); Carbon Dioxide 27 mmol/L (22-29); Chloride 104 mmol/L (98-107); Globulin 2.5 g/dL (1.3-4.6); Glomerular Filtration Rate 89.7 mL/min (90-130); Glucose 106 mg/dL (65-115); Osmolality Calculated 292 mOsm/kg (285-295); Potassium 3.9 mmol/L (3.5-5.1); Sodium 143 mmol/L (136-145); Total Bilirubin 0.2 mg/dL (0.15-1.2); Total Protein 6.9 g/dL (6.6-8.7)
[2019-11-15 21:37] LABS: Troponin(5th) Baseline 6 ng/L (0-10)
[2019-11-15 21:38] LABS: Basophils # 0.1 10^3/uL (0.0-0.1); Basophils % 0.7 %; Eosinophils # 0.3 10^3/uL (0.0-0.8); Eosinophils % 2.8 %; Hematocrit 42.1 % (37.0-47.0); Hemoglobin 13.7 g/dL (11.5-15.3); Lymphocytes # 3.1 10^3/uL (0.8-4.8); Lymphocytes % 28.7 %; Mean Corpuscular HGB Conc 32.5 g/dL (30.0-36.0); Mean Corpuscular Hemoglobin 28.7 pg (28.0-34.0); Mean Corpuscular Volume 88.3 fL (81-99); Mean Platelet Volume 10.9 fL (7.4-10.4); Monocytes # 1.1 10^3/uL (0.2-0.9); Monocytes % 9.8 %; Neutrophils # 6.3 10^3/uL (1.8-7.7); Neutrophils % 57.6 %; Nucleated Red Blood Cells % 0 %; Platelet Count 304 10^3/cmm (130-400); Red Blood Count 4.77 10^6/uL (4.1-5.3); Red Cell Distribution Width 13.2 % (12.1-15.1); White Blood Count 10.9 10^3/uL (4.0-10.0)
[2019-11-15 21:43] VITALS: BP 131/87; PULSE 102; RESP 16; O2SAT 96
[2019-11-15 22:10] LABS: Add Urine Microscopic? NO
[2019-11-15 22:10] LABS: INR 0.92 (0.8-1.2)
[2019-11-15 22:11] LABS: Partial Thromboplastin Time 25.7 SECONDS (23.9-36.7)
[2019-11-15 22:14] LABS: Bilirubin Urine Neg (NEGATIVE); Blood Urine Neg (Negative); Glucose Urine UA Norm (Normal); Ketones Urine Negative (Negative); Leukocyte Esterase Urine Negative (Negative); Nitrate Urine Negative (Negative); Protein Urine Neg (Negative); Specific Gravity, Urine 1.015 (1.005-1.030); Urine Appearance Clear (CLEAR); Urine Color Yellow (Yellow); Urobilinogen Urine Norm (Negative); pH Urine 5 (5-7)
--- NOTE | 2019-11-15 22:20 | W.ED.AMS ---
HPI - Altered Mental Status General: Chief Complaint: Altered Mental Status Stated Complaint: DECREASED LEVEL OF CONSCIOUSNESS Time Seen by Provider: 11/15/19 22:05 Source: patient and EMS Mode of arrival: EMS Limitations: altered mental status History of Present Illness: HPI narrative: Gale is a 48-year-old female brought in by EMS with a concern for altered mental status. EMS report is the patient was last known well 30 to 40 minutes ago but cannot give a specific time in that time span is not certain. Family cannot be reached by phone and is not here with the patient to give any further history. EMS reports the patient was found in her current state of confusion with eye opening and not speaking approximately 30 minutes prior to their their arrival here. No definitive timeline at this point can be established. Patient is not speaking and unable to give any history. Stroke alert was called by me once I was able to perform a quick assessment of the patient. I will try to reach the patient's family by home and I will review her past medical records once available. Dr. Rea will be notified of stroke consult. Review of Systems General: Reports: ROS unobtainable due to mental status PFSH ED PFSH: Medical History COPD (chronic obstructive pulmonary disease) CVA (cerebral vascular accident) Depression Major depressive disorder, recurrent, moderate Surgical History H/O laparoscopy H/O: hysterectomy History of cholecystectomy History of tubal ligation Hx of oophorectomy Family History Father CAD (coronary artery disease) Cancer Diabetes Hyperlipidemia Mother Hypertension Psychiatric illness Brother Hypertension Denies family history of Clotting disorder Dementia Chronic kidney disease (CKD) Suicide Anesthesia complication Bleeding disorder Family history of premature coronary artery disease Lung disease Stroke Social History Smoking and tobacco status: unknown if ever smoked Second hand smoke exposure: No Alcohol intake: current Alcohol intake frequency: holidays/special occasions only Alcohol type: other Physical Exam Const: COMMON NORMALS: no acute distress EXAM LIMITATIONS: altered mental status GENERAL APPEARANCE: cooperative, anxious and other (Patient nonverbal and would only follow basic commands.) HENMT: COMMON NORMALS: normocephalic, atraumatic, external ears normal, EAC's normal and Normal external nose present HEAD & SCALP: normal to inspection, normocephalic and atraumatic FACE & SINUS: normal facial exam and face symmetric NOSE: Normal external nose present and Normal nares present EXTERNAL EAR: Yes external ears normal EXTERNAL AUDITORY CANAL: EAC's normal MOUTH: Normal oral and palatal mucosa present, lip normal and tongue normal Eye: COMMON NORMALS: Equal, round and reactive pupils present and conjunctivae normal GENERAL EYE: appearance normal, both eyes and all related structures ALIGNMENT: Yes alignment normal PERIORBITAL: periorbital findings normal EYELID: eyelids normal CONJUNCTIVA: Yes conjunctivae normal SCLERA: sclerae normal PUPIL: Yes Equal, round and reactive pupils present Neck/C-Spine: COMMON NORMALS: full ROM, no lymphadenopathy, supple, no meningeal signs and no JVD GENERAL: Yes normal visual inspection and Yes trachea midline Chest: COMMONS NORMALS: normal inspection of the chest and normal palpation of entire chest wall Resp: COMMON NORMALS: normal respiratory effort, No retractions and No use of accessory muscles EFFORT & INSPECTION: Yes able to speak in complete sentences and Yes symmetric chest movement AUSCULTATION: no crackles, no rales, no rhonchi and no wheezes Cardio: COMMON NORMALS: no JVD, regular rate, regular rhythm, S1 normal heart sound present and S2 normal heart sound present RATE: regular rate RHYTHM: regular rhythm HEART SOUNDS: S1 normal heart sound present, S2 normal heart sound present, no click, no gallops, no murmurs, no rubs and abnormal split S2 GI: COMMON NORMALS: Soft to palpation and No hepatosplenomegaly present PALPATION: Yes Soft to palpation, No Tenderness to palpation present (GI), No Guarding due to palpation present (GI), No Rigid due to palpation, Yes No hepatosplenomegaly present, No Hernia present, No Palpable mass present and No Pulsatile mass present : COMMON NORMALS: Yes no CVA tenderness BLADDER/KIDNEY EXAM: Yes no CVA tenderness EXTERNAL FEMALE EXAM: No Hernia present Back/Pelvis: COMMON NORMALS: no CVA tenderness, thoracic and lumbar spine normal to inspection, no thoracic nor lumbar tenderness and thoraco-lumbar ROM normal Extremity: COMMON NORMALS: normal to inspection, capillary refill normal, no joint enlargement, no clubbing, cyanosis or edema and no calf tenderness Neuro: MENINGEAL SIGNS: Yes no meningeal signs Skin: COMMON NORMALS: no rashes or lesions noted, turgor normal, no jaundice, no petechiae and no mottling GENERAL SKIN EXAM: no rashes or lesions noted and turgor normal Course ED course: 2219 -patient states she feels back to normal at this time. I have recommended and offered admission but she refuses. She states she is feeling fine and wants to go home. After much discussion she does agree to stay for a second EKG and troponin to rule out any cardiac problems. Vital Signs: Vital signs: Vital Signs Temperature 98.2 F 11/15/19 20:58 Pulse Rate 93 11/15/19 23:55 Respiratory Rate 21 H 11/15/19 23:55 Blood Pressure 108/78 11/15/19 23:55 Pulse Oximetry 96 11/15/19 23:55 MDM - Altered Mental Status MDM Narrative: Medical decision making narrative: Discharge -Gale is a 48-year-old female who came in with what appeared to be a aphasia and abrupt mental status change. Further history was obtained from family who states that she was in her normal state of health at 530 and then went shopping with her ggnoctxi-nb-ruu Jesusita Peters. Ms. Peters states, as I discussed the case with her by phone, Ms. Veloz started to complain of chest discomfort and not feeling right and went to lay down. Ms. Peters was confident that this occurred at just after 730. At 745 the patient was checked on by family and found to be in the state of being unable to speak, unable to move but would look around anxiously. Ms. Peters called for EMS who brought the patient here. EMS report was very poor as far as timeline and a great deal of this history was obtained after the fact. Nonetheless Dr. Rea arrived to assess the patient. Please see her note for time and details. Shortly before Dr. Rea arrived the patient began to spontaneously move her arms and legs and began to speak clearly. She was able to give somewhat of a timeline of today's events. Ultimately she did return back to baseline and had no complaints of any discomfort or problem here. Dr. Rea did not elect to give her TPA and felt this was a functional disorder versus a true stroke. Ultimately I was able to talk the patient into staying for second EKG and troponin although she was wanting to leave earlier than this. Patient's troponin was completely negative on 2 draws and her EKG is at baseline. I see no other sign of acute neurologic, cardiovascular, infectious or toxicologic disorder at this time. Nonetheless secondary to the degree of the patient's change I recommended she stay in the hospital for further evaluation and care and she declined. I did make her aware of the risks of leaving AGAINST MEDICAL ADVICE including ultimately or severe permanent disability but she still refused and wanted to be discharged. The patient was warned that she was also welcome to return. Patient's abbreviated repeat NIH stroke scale just prior to discharge was 0. Lab Data: Attestation: I reviewed the patient's lab results. Labs: Lab Results 11/15/19 11/15/19 11/15/19 Range/Units 21:10 21:10 21:10 WBC 10.9 H (4.0-10.0) 10^3/ uL RBC 4.77 (4.1-5.3) 10^6/u L Hgb 13.7 (11.5-15.3) g/dL Hct 42.1 (37.0-47.0) % MCV 88.3 (81-99) fL MCH 28.7 (28.0-34.0) pg MCHC 32.5 (30.0-36.0) g/dL RDW 13.2 (12.1-15.1) % Plt Count 304 (130-400) 10^3/c mm MPV 10.9 H (7.4-10.4) fL Neut % (Auto) 57.6 % Lymph % (Auto) 28.7 % [place] % (Auto) 9.8 % Eos % (Auto) 2.8 % Baso % (Auto) 0.7 % Neut # (Auto) 6.3 (1.8-7.7) 10^3/u L Lymph # (Auto) 3.1 (0.8-4.8) 10^3/u L [place] # (Auto) 1.1 H (0.2-0.9) 10^3/u L Eos # (Auto) 0.3 (0.0-0.8) 10^3/u L Baso # (Auto) 0.1 (0.0-0.1) 10^3/u L Nucleated RBC % (a uto) 0 % Nucleated RBCs # 0.0 /100WBC PT 12.70 (10.5-13.3) SECO NDS INR 0.92 (0.8-1.2) APTT 25.7 (23.9-36.7) SECO NDS Sodium 143 (136-145) mmol/L Potassium 3.9 (3.5-5.1) mmol/L Chloride 104 (98-107) mmol/L Carbon Dioxide 27 (22-29) mmol/L Anion Gap 15.9 (5-19) BUN 9 (6-20) mg/dL Creatinine 0.7 (0.5-0.9) mg/dL GFR Calculation 89.7 L (90-130) mL/min Glucose 106 (65-115) mg/dL Calculated Osmolal ity 292 (285-295) mOsm/k g Calcium 9.7 (8.5-10.5) mg/dL Total Bilirubin 0.2 (0.15-1.2) mg/dL AST 23 (0-32) U/L ALT 23 (0-33) U/L Alkaline Phosphata se 92 (35-105) IU/L Troponin T Baselin e (0-10) ng/L Troponin T 120 Min [place]well (0-10) ng/L Delta Troponin T (0-10) ABS# Total Protein 6.9 (6.6-8.7) g/dL Albumin 4.4 (3.5-5.2) g/dL Globulin 2.5 (1.3-4.6) g/dL Urine Color (Yellow) Urine Appearance (CLEAR) Urine pH (5-7) Ur Specific Gravit y (1.005-1.030) Urine Protein (Negative) Urine Glucose (UA) (Normal) Urine Ketones (Negative) Urine Blood (Negative) Urine Nitrate (Negative) Urine Bilirubin (NEGATIVE) Urine Urobilinogen (Negative) mg/dL Ur Leukocyte Shari ase (Negative) Urine Opiates Scre en (Negative) ng/mL Ur Barbiturates Sc reen (Negative) ng/mL Ur Phencyclidine S crn (Negative) ng/mL Ur Amphetamines Sc reen (Negative) ng/mL U Benzodiazepines Scrn (Negative) ng/mL Urine Cocaine Scre en (Negative) ng/mL U Marijuana (THC) Screen (Negative) ng/mL 11/15/19 11/15/19 11/15/19 Range/Units 21:10 21:54 21:54 WBC (4.0-10.0) 10^3/ uL RBC (4.1-5.3) 10^6/u L Hgb (11.5-15.3) g/dL Hct (37.0-47.0) % MCV (81-99) fL MCH (28.0-34.0) pg MCHC (30.0-36.0) g/dL RDW (12.1-15.1) % Plt Count (130-400) 10^3/c mm MPV (7.4-10.4) fL Neut % (Auto) % Lymph % (Auto) % [place] % (Auto) % Eos % (Auto) % Baso % (Auto) % Neut # (Auto) (1.8-7.7) 10^3/u L Lymph # (Auto) (0.8-4.8) 10^3/u L [place] # (Auto) (0.2-0.9) 10^3/u L Eos # (Auto) (0.0-0.8) 10^3/u L Baso # (Auto) (0.0-0.1) 10^3/u L Nucleated RBC % (a uto) % Nucleated RBCs # /100WBC PT (10.5-13.3) SECO NDS INR (0.8-1.2) APTT (23.9-36.7) SECO NDS Sodium (136-145) mmol/L Potassium (3.5-5.1) mmol/L Chloride (98-107) mmol/L Carbon Dioxide (22-29) mmol/L Anion Gap (5-19) BUN (6-20) mg/dL Creatinine (0.5-0.9) mg/dL GFR Calculation (90-130) mL/min Glucose (65-115) mg/dL Calculated Osmolal ity (285-295) mOsm/k g Calcium (8.5-10.5) mg/dL Total Bilirubin (0.15-1.2) mg/dL AST (0-32) U/L ALT (0-33) U/L Alkaline Phosphata se (35-105) IU/L Troponin T Baselin e 6 (0-10) ng/L Troponin T 120 Min [place] (0-10) ng/L Delta Troponin T (0-10) ABS# Total Protein (6.6-8.7) g/dL Albumin (3.5-5.2) g/dL Globulin (1.3-4.6) g/dL Urine Color Yellow (Yellow) Urine Appearance Clear (CLEAR) Urine pH 5 (5-7) Ur Specific Gravit y 1.015 (1.005-1.030) Urine Protein Neg (Negative) Urine Glucose (UA) Norm (Normal) Urine Ketones Negative (Negative) Urine Blood Neg (Negative) Urine Nitrate Negative (Negative) Urine Bilirubin Neg (NEGATIVE) Urine Urobilinogen Norm (Negative) mg/dL Ur Leukocyte Shari ase Negative (Negative) Urine Opiates Scre en Negative (Negative) ng/mL Ur Barbiturates Sc reen Negative (Negative) ng/mL Ur Phencyclidine S crn Negative (Negative) ng/mL Ur Amphetamines Sc reen Negative (Negative) ng/mL U Benzodiazepines Scrn Negative (Negative) ng/mL Urine Cocaine Scre en Negative (Negative) ng/mL U Marijuana (THC) Screen Negative (Negative) ng/mL 11/15/19 Range/Units 23:17 WBC (4.0-10.0) 10^3/ uL RBC (4.1-5.3) 10^6/u L Hgb (11.5-15.3) g/dL Hct (37.0-47.0) % MCV (81-99) fL MCH (28.0-34.0) pg MCHC (30.0-36.0) g/dL RDW (12.1-15.1) % Plt Count (130-400) 10^3/c mm MPV (7.4-10.4) fL Neut % (Auto) % Lymph % (Auto) % [place] % (Auto) % Eos % (Auto) % Baso % (Auto) % Neut # (Auto) (1.8-7.7) 10^3/u L Lymph # (Auto) (0.8-4.8) 10^3/u L [place] # (Auto) (0.2-0.9) 10^3/u L Eos # (Auto) (0.0-0.8) 10^3/u L Baso # (Auto) (0.0-0.1) 10^3/u L Nucleated RBC % (a uto) % Nucleated RBCs # /100WBC PT (10.5-13.3) SECO NDS INR (0.8-1.2) APTT (23.9-36.7) SECO NDS Sodium (136-145) mmol/L Potassium (3.5-5.1) mmol/L Chloride (98-107) mmol/L Carbon Dioxide (22-29) mmol/L Anion Gap (5-19) BUN (6-20) mg/dL Creatinine (0.5-0.9) mg/dL GFR Calculation (90-130) mL/min Glucose (65-115) mg/dL Calculated Osmolal ity (285-295) mOsm/k g Calcium (8.5-10.5) mg/dL Total Bilirubin (0.15-1.2) mg/dL AST (0-32) U/L ALT (0-33) U/L Alkaline Phosphata se (35-105) IU/L Troponin T Baselin e (0-10) ng/L Troponin T 120 Min [place] 6.00 (0-10) ng/L Delta Troponin T 0 (0-10) ABS# Total Protein (6.6-8.7) g/dL Albumin (3.5-5.2) g/dL Globulin (1.3-4.6) g/dL Urine Color (Yellow) Urine Appearance (CLEAR) Urine pH (5-7) Ur Specific Gravit y (1.005-1.030) Urine Protein (Negative) Urine Glucose (UA) (Normal) Urine Ketones (Negative) Urine Blood (Negative) Urine Nitrate (Negative) Urine Bilirubin (NEGATIVE) Urine Urobilinogen (Negative) mg/dL Ur Leukocyte Shari ase (Negative) Urine Opiates Scre en (Negative) ng/mL Ur Barbiturates Sc reen (Negative) ng/mL Ur Phencyclidine S crn (Negative) ng/mL Ur Amphetamines Sc reen (Negative) ng/mL U Benzodiazepines Scrn (Negative) ng/mL Urine Cocaine Scre en (Negative) ng/mL U Marijuana (THC) Screen (Negative) ng/mL Imaging Data^: CT Head: Radiologist's impression: [address] [place] [address] CT Scan Report Signed Patient: Gale Veloz Unit #: [id number] : 1970 Age/Sex: 48 / F ADM Date: 11/15/19 Loc: ER Room/Bed: Attending Dr: Ordering Provider/Ordering MD: Nimo Hurt DO Date of Service: 11/15/19 Procedure(s): CT head wo con* [id number] Accession Number(s): [id number] Report Number: [id number] PROCEDURE INFORMATION: Exam: CT Head Without Contrast Exam date and time: 11/15/2019 9:10 PM Age: 48 years old Clinical indication: Altered mental status/memory loss and speech disturbance; Additional info: Symptoms of acute stroke TECHNIQUE: Imaging protocol: Computed tomography of the head without contrast. Radiation optimization: All CT scans at this facility use at least one of these dose optimization techniques: automated exposure control; mA and/or kV adjustment per patient size (includes targeted exams where dose is matched to clinical indication); or iterative reconstruction. Other technique: STROKE PROTOCOL was implemented. COMPARISON: No relevant prior studies available. RADIATION DOSE METRICS: Total DLP (mGy-cm): 766.97 FINDINGS: Brain: Normal. No hemorrhage or CT evidence of acute infarction is seen. No mass effect. Ventricles: Normal. No ventriculomegaly. Bones/joints: Unremarkable. No acute fracture. Sinuses: Visualized sinuses are unremarkable. No fluid levels. Mastoid air cells: Visualized mastoid air cells are well aerated. Soft tissues: Unremarkable. CT/CT head wo con* [id number] IMPRESSION: No acute intracranial abnormality. ASSESSMENT: ASPECTS ([place] Stroke Program Early CT Score) is 10. Radiation Dose CTDIVOL = (mGy): DLP = 766.97 (mGy-cm) Dictated By: Venkat Hobson MD Signed By: Venkat Hobson MD Signed Date/Time: 11/15/192130 DD/ 28 CTA Head and Neck: Radiologist's impression: [address] [place] [address] CT Scan Report Signed Patient: Gale Veloz Unit #: [id number] : 1970 Age/Sex: 48 / F ADM Date: 11/15/19 Loc: ER Room/Bed: Attending Dr: Ordering Provider/Ordering MD: Nimo Hurt DO Date of Service: 11/15/19 Procedure(s): CT angio headneck* [id number] Accession Number(s): [id number] Report Number: [id number] PROCEDURE INFORMATION: Exam: CT Angiography Head With Contrast Exam date and time: 11/15/2019 9:15 PM Age: 48 years old Clinical indication: Speech disturbance and weakness; Additional info: Stroke TECHNIQUE: Imaging protocol: Computed tomography angiography of the head with intravenous contrast. 3D rendering: MIP and/or 3D reconstructed images were created by the technologist. Radiation optimization: All CT scans at this facility use at least one of these dose optimization techniques: automated exposure control; mA and/or kV adjustment per patient size (includes targeted exams where dose is matched to clinical indication); or iterative reconstruction. Contrast material: VISI 320; Contrast volume: 95 ml; Contrast route: INTRAVENOUS (IV); COMPARISON: CT head wo con* [id number] 11/15/2019 9:03 PM RADIATION DOSE METRICS: Total DLP (mGy-cm): 2227.18 FINDINGS: Anterior cerebral arteries: No occlusion or significant stenosis. No aneurysm. Right internal carotid artery: Intracranial segment is patent with no significant stenosis or occlusion. No aneurysm. Right middle cerebral artery: No occlusion or significant stenosis. No aneurysm. Right posterior cerebral artery: No occlusion or significant stenosis. No aneurysm. Right vertebral artery: No occlusion or significant stenosis. No aneurysm. Left internal carotid artery: Intracranial segment is patent with no significant stenosis or occlusion. No aneurysm. Left middle cerebral artery: No occlusion or significant stenosis. No aneurysm. Left posterior cerebral artery: No occlusion or significant stenosis. No aneurysm. Left vertebral artery: No occlusion or significant stenosis. No aneurysm. Basilar artery: No occlusion or significant stenosis. No aneurysm. IMPRESSION: Patent intracranial arteries. PROCEDURE INFORMATION: Exam: CT Angiography Neck With Contrast Exam date and time: 11/15/2019 9:15 PM Age: 48 years old Clinical indication: Speech disturbance and weakness; Additional info: Stroke TECHNIQUE: Imaging protocol: Computed tomography angiography of the neck with intravenous contrast. 3D rendering: MIP and/or 3D reconstructed images were created by the technologist. Radiation optimization: All CT scans at this facility use at least one of these dose optimization techniques: automated exposure control; mA and/or kV adjustment per patient size (includes targeted exams where dose is matched to clinical indication); or iterative reconstruction. Contrast material: VISI 320; Contrast volume: 95 ml; Contrast route: INTRAVENOUS (IV); COMPARISON: none available. RADIATION DOSE METRICS: Total DLP (mGy-cm): 2227.18 FINDINGS: Right common carotid artery: No stenosis. No dissection or occlusion. Right internal carotid artery: No stenosis of the extracranial segment. No dissection or occlusion. Right external carotid artery: No occlusion or stenosis of the origin. Right vertebral artery: No stenosis. No dissection or occlusion. Left common carotid artery: No stenosis. No dissection or occlusion. Left internal carotid artery: No stenosis of the extracranial segment. No dissection or occlusion. Left external carotid artery: No occlusion or stenosis of the origin. Left vertebral artery: No stenosis. No dissection or occlusion. Bones/joints: No acute fracture. Soft tissues: Normal. No significant soft tissue swelling. CT/CT angio headneck* [id number] IMPRESSION: Patent neck carotid and vertebral arteries. Radiation Dose CTDIVOL = (mGy): DLP = 2227.18 2227.18 (mGy-cm) Dictated By: Venkat Hobson MD Signed By: Venkat Hobson MD Signed Date/Time: 11/15/192134 DD/ 33 EKG Data^: EKG 1: Attestation: I personally reviewed and interpreted this EKG as follows: EKG interpretation date: 11/15/19 EKG interpretation time: 21:25 Interpretation: Normal sinus rhythm at 106 beats a minute, normal axis, nonspecific ST and T wave changes. Consistent with previous. EKG 2: Attestation: I personally reviewed and interpreted this EKG as follows: EKG interpretation date: 11/15/19 EKG interpretation time: 21:25 Interpretation: Normal sinus rhythm at 106 beats a minute, nonspecific ST and T wave changes, consistent with previous. Critical Care Time Critical Care Time: Critical Care Time: Yes Total Critical Care Time: 30 Attestation: Critical care time consisted of my individual undivided attention of the patient's care. Critical care time consisted of assessment for possibility of need of TPA. Critical care time consisted of evaluating the patient's old chart, consulting with and discussing case with Dr. Rea the neurologist. Critical care time consisted of reviewing old labs and repeated evaluations of the patient's physical exam neurologic status. Discharge Plan Discharge Patient Disposition: Home, Self-Care Clinical Impression: Altered mental status Qualifiers: Altered mental status type: unspecified Qualified Code(s): R41.82 - Altered mental status, unspecified Condition: Stable Prescriptions: No Action fluoxetine 20 mg/5 mL (4 mg/mL) solution 60 mg PO DAILY Qty: 450 RF: 1 isosorbide mononitrate 30 mg tablet extended release 24 hr 30 mg PO DAILY Qty: 30 RF: 6 aspirin [Aspir-81] 81 mg Tablet,Delayed Release (Dr/Ec) 81 mg PO DAILY RF: 0 nitroglycerin [Nitrostat] 0.4 mg Tablet, Sublingual 0.4 mg SUBLINGUAL Q5M PRN (Reason: Chest Pain) RF: 0 ibuprofen 800 mg tablet 800 mg PO Q8H PRN (Reason: pain) Qty: 30 RF: 0 ondansetron HCl [Zofran] 4 mg tablet 4 mg PO Q6H PRN (Reason: nausea and vomiting) Qty: 20 RF: 0 dicyclomine 20 mg tablet 20 mg PO QID Qty: 20 RF: 0 Discharge Orders: Discharge Order (Routine); Ordered 11/15/19 Ordered By: Nimo Hurt Referrals: Marina Rapp DO [Primary Care Provider] - 1-3 days Discharge Diet: Advance as tolerated Discharge Activity: Increase activity as tolerated Patient Instructions: Altered Mental Status (ED) Activity Restrictions/Additional Instructions: Please return to the ER immediately for any of the signs or symptoms listed on your discharge instruction sheets, worsening/changing of your symptoms, you are not getting better as quickly as expected, or for ANY other cause or concerns. I have recommended and offered to admit you to the hospital for further evaluation and care but you have declined. You are leaving against my advice and of course with chest pain and having an altered mental status there are multiple things that could have caused this that could still be present and cause problems including ultimately . If you change your mind, your symptoms return, or you have any other new problems please return to the ER immediately for recheck. Discharge Date/Time: 11/16/19 00:00 Coding Level of Care Code ED [employer] Estate Site Analyst for Toni Ramírez Exam Comprehensive NIH stroke score NIHSS Level Of Consciousness - 1a: 0 Level Of Consciousness Questions - 1b: Neither Correct Level Of Consciousness Commands - 1c: Both Correct Best Gaze - 2: Normal Visual Mclean - 3: No Visual Loss Facial Palsy - 4: Normal Motor Arm Right - 5: Drift Motor Arm Left - 5: Drift Motor Leg Right - 6: Drift Motor Leg Left - 6: Drift Limb Ataxia - 7: Absent Sensory - 8: Normal Best Language - 9: Mute; Global Aphasia Dysarthia - 10: Severe Dysarthia Extinction And Inattention - 11: 0 Score Total Score: 11
[2019-11-15 22:22] LABS: Amphetamines Screen Urine Negative (Negative); Barbiturates Screen Urine Negative (Negative); Benzodiazepines Screen Urine Negative (Negative); Cocaine Screen Urine Negative (Negative); Opiate Screen Urine Negative (Negative); PCP Screen Urine Negative (Negative); THC Screen Urine Negative (Negative)
--- NOTE | 2019-11-15 23:05 | ECG_ITS ---
[facility] ED Test Date: 2019-11-15 Pat Name: Gale Veloz Department: Room: Gender: Female Glove Cuffer: : 1970 Requested By: Nimo Talavera Order Number: [id number] Sohail MD: Mckenzie Argueta M.D. Measurements Intervals [place] Rate: 101 P: 69 WI: 166 QRS: 69 QRSD: 85 T: 85 QT: 338 QTc: 438 Interpretive Statements SINUS TACHYCARDIA NONSPECIFIC T-WAVE ABNORMALITY Compared to ECG 11/15/2019 21:25:05 No significant changes Electronically Signed On 11-16-2019 16:35:11 CDT by Mckenzie Argueta M.D. [id number]
[2019-11-15 23:27] VITALS: BP 123/82; PULSE 99; RESP 28; O2SAT 95
[2019-11-15 23:37] VITALS: BP 108/78; PULSE 102; RESP 23; O2SAT 96
[2019-11-15 23:39] LABS: Troponin 5 2HR Delta 0 ABS# (0-10)
[2019-11-15 23:55] VITALS: BP 108/78; PULSE 93; RESP 21; O2SAT 96
--- NOTE | 2019-11-20 11:29 | P.PNCC_ITS ---
Stroke Alert Activation ED Arrival Date: 11/15/19 ED Arrival Time: 20:56 ED Physican at Bedside: 20:59 Last Known Normal/at Baseline: < 1 hour ago Other Last Known Well Infomation: I was called stat for stroke team for this 48-year-old woman. I attempted to write a stroke note after spending 30 minutes in critical care with her but the program would not allow that to be opened and I had to shut down and reopened this program multiple times before I was allowed to complete this dictation. She was brought in by EMS with unilateral numbness and inability to speak. She would open her eyes but she would not converse with EMS or with Dr. Dillon on arrival. I came directly from home and looked at her CAT scan on the monitor. I came to her room and completed NIH stroke scale. By the time that I arrived, she was able to speak although haltingly. I obtained a complete score of 0 at 2133. I talked with Dr. Dillon and we agreed that the patient was not a candidate for TPA. Stroke Alert Activated by: EMS Stroke Alert Activation Time: 20:59 Stroke MD @ Bedside Time: 20:59 NIH Stroke Scale Time: 21:33 NIH Stroke Scale Score: NIH Stroke Scale Score: 0 NIH stroke score NIHSS: Level Of Consciousness - 1a: 0 Level Of Consciousness Questions - 1b: Both Correct Level Of Consciousness Commands - 1c: Both Correct Best Gaze - 2: Normal Visual Mclean - 3: No Visual Loss Facial Palsy - 4: Normal Motor Arm Right - 5: No Drift Motor Arm Left - 5: No Drift Motor Leg Right - 6: No Drift Motor Leg Left - 6: No Drift Limb Ataxia - 7: Absent Sensory - 8: Normal Best Language - 9: No Aphasia Dysarthia - 10: Normal Extinction And Inattention - 11: 0 Score: Total Score: 0 Stroke Alert Data/Treatment Time to CT of Head: 20:59 Stroke Risk Factors: hypertension and depression tPA Contraindication: tPA Contraindication: Treatment not indcated Patient & Family Educated on: Cause of Stroke, Risk Factors and Treament Plan Other Patient & Family Education: I was not at all convinced this was a stroke and thought it might be migraine equivalent. She was treated as a TIA. We were concerned that her symptoms might be functional. She was complaining of chest pain. Critical Care Time 2 Critical Care Time: 30 - 74 mins A&P Assessment and plan (1) Functional neurological symptom disorder with attacks or seizures: This was strongly suspicious for a functional event or possibly migraine related. By the time I arrived, the patient's symptoms had resolved. She was still complaining of chest pain. I discussed her case with Dr. Walden. I spent more than 30 minutes in kimw-[id number] contact on the patient's behalf. I welcomed her to come to my clinic for evaluation if needed if her symptoms should become recurrent. Status: Acute Coding Level of Care Code Acute Top Distribution Executive for Toni Ramírez Diagnoses Functional neurological symptom disorder with attacks or seizures F44.5
== END 2019-11-16 | disposition home or self-care (01) ==
PROVIDERS: Emergency Provider Emergency Medicine; PCP Family Medicine
DX: R41.82 Altered mental status, unspecified (principal); Z79.82 Long term (current) use of aspirin; J44.9 Chronic obstructive pulmonary disease, unspecified; Z86.73 Personal history of transient ischemic attack (TIA), and cerebral infarction without residual deficits
CPT/HCPCS: 12345; 36415; 70450; 70496; 70498; 80053; 80306; 81003; 84484; 85025; 85610; 85730; 93005; 99284; A9270; Q9967

== ENCOUNTER 2019-11-24 08:46 | Outpatient (CLI) | payer MEDICAID, SELFPAY ==
[2019-11-24 08:58] VITALS: BMI 31.6
--- NOTE | 2019-11-24 09:05 | ECG_ITS ---
[facility] Test Date: 2019-11-24 Pat Name: Gale Veloz Department: Room: Gender: Female Rn Corrections: : 1970 Requested By: Jesusita Sims Order Number: [id number] Sohail MD: Lalito Lynn M.D. Interpretive Statements NAME OF STUDY: LEXISCAN SESTAMIBI STRESS TEST INDICATION: Chest Pain LEXISCAN STRESS TEST ORDERING PHYSICIAN: Unknown CLINICAL INFORMATION: Unknown INTERPRETATION: 1. The patient was brought to the laboratory where Lexiscan was infused over 20 seconds. The resting blood pressure was 126/77. Maximum blood pressure was 132/83. The resting heart rate was 93 beats per minute. The maximum heart rate is 113 beats per minute. 2. The baseline electrocardiogram reveals sinus rhythm with a right ventricular conduction delay and T wave inversions lead V1 through V3 3. With Lexiscan infusion, there were no ST segment changes to suggest ischemia. 4. The patient experienced no symptoms or arrhythmias during the examination. CONCLUSION: 1. Unremarkable Lexiscan infusion. 2. Nuclear imaging to follow. Electronically Signed On 11-24-2019 14:52:50 CDT by Lalito Lynn M.D. [id number]
--- NOTE | 2019-11-24 09:06 | NMCV_ITS ---
NM gracia perf SPECT r/s* [id number] Gale Veloz Age: 48 Gender: F : 1970 Exam Date: 11/24/2019 09:55 Ordering Phys: Jesusita Sims Technologist: MARY Joshi Exam Location: [facility] Indications: CHEST PAIN STRESS TEST Please see separate stress test report in [facility] for full findings IMAGE PROTOCOL Rest/Stress 1 Lexiscan Day Radiopharmaceutical Dose (mCi) Administration Site Administered by Rest: Tc-99m 10.6 IV MARY Garcia Sestamibi Stress:Tc-99m 32.8 IV MARY Garcia Sestamibi Rest: 11/24/2019 60 Discovery 630 Stress: 11/24/2019 30 Discovery 630 0.4mg Lexiscan. Images obtained in supine and prone position. SPECT RESULTS Technical Quality: Excellent Raw Data Analysis: Normal Image Corrections: No attenuation or motion correction applied Summed Stress Score: 0 Summed Rest Score: 5 Summed Difference Score: 0 PERFUSION FINDINGS Mild size perfusion abnormality of mild severity of mid inferolateral, apical inferior and apical lateral rodriguez on rest images with improved tracer uptake on stress images. This is suggestive of attenuation artifact. FUNCTIONAL RESULTS (calculated via Gated SPECT) Stress Image LV EF (%): 67 Stress EDV (mL):66 TID: 1.04 Stress ESV (mL):22 FUNCTIONAL FINDINGS: The left ventricle is normal in size. Transient Ischemia Dilatation of 1. There is normal left ventricular systolic function. The left ventricular ejection fraction is normal with a value of 67%. There is normal left ventricular wall thickening. Normal end-diastolic and end-systolic volumes. IMPRESSIONS 1. Myocardial perfusion imaging is normal. 2. Overall left ventricular systolic function is normal without regional wall motion abnormalities. 3. The left ventricular ejection fraction is normal with a value of 67%. 4. This study suggests a low likelihood of angiographically significant coronary artery disease. Mckenzie Argueta MD (Electronically Signed) Final Date: 27 November 2019 12:56 S
--- NOTE | 2019-11-24 11:10 | SUR.PREOP ---
Patient reports no pain or discomfort prior to the start of the procedure.
[2019-11-24] MEDS: regadenoson 0.4 Mg/5 ml Syringe IVP (11:12)
[2019-11-24 11:26] VITALS: BP 128/81; PULSE 99
== END 2019-11-24 08:47 | disposition home or self-care (01) ==
LOC: CDL 08:46
PROVIDERS: Visit Provider Nurse Practitioner Family
DX: R07.9 Chest pain, unspecified (principal)
CPT/HCPCS: 78452; 93017; A9500; J2785

== ENCOUNTER 2019-12-10 21:03 | Emergency (ER) | payer MEDICAID, SELFPAY ==
[2019-12-10 21:19] VITALS: BP 138/83; PULSE 100; RESP 16; TEMP 36.4; O2SAT 95; BMI 31.8
[2019-12-10 21:43] VITALS: RESP 18
--- NOTE | 2019-12-10 21:45 | ED_ITS ---
HPI - Extremity Problem General: Chief complaint: Extremity Problem,Nontraumatic Stated complaint: ankle swelling Time Seen by Provider: 12/10/19 21:45 Source: patient Mode of arrival: ambulatory Limitations: no limitations History of Present Illness: HPI Narrative: Patient is a 49-year-old female who presents to ED today with complaints of bilateral swelling to her ankles that she began noticing today. She tells me she has been treating with ibuprofen. She has not had any injury or trauma. She has not noticed any redness or warmth. She has not noticed any increased weight gain or abdominal distention. She has no known congestive heart failure and no known renal abnormalities. Patient states she is fairly sedentary. She denies calf pain. MD Complaint: extremity swelling Onset (ago): day(s) Pain Consistency: constant Location: left, right and lower extremity (ankles/feet) Radiation: none Relieving factors: nothing Exacerbating factors: nothing Associated symptoms: Reports no associated symptoms; Deny chest pain or fever(s) Review of Systems Const: Denies: fever(s) or chills Card: Reports: swelling of feet/ankles; Denies: chest pain, palpitations, irregular heart rhythm, edema, lightheadedness, syncope, pre-syncope, dyspnea on exertion, orthopnea, leg pain with exertion or acrocyanosis Resp: Denies: dyspnea or chest congestion GI: Denies: abdominal pain : Denies: oliguria or hematuria Musc: Reports: extremity swelling (bilateral feet) and joint swelling (bilateral ankles ); Denies: neck pain, back pain, extremity pain or joint pain [facility] ED PFSH: Medical History (Updated 12/10/19 @ 23:19 by ANURAG Johnson) COPD (chronic obstructive pulmonary disease) CVA (cerebral vascular accident) Depression Major depressive disorder, recurrent, moderate Surgical History H/O laparoscopy H/O: hysterectomy History of cholecystectomy History of tubal ligation Hx of oophorectomy Family History Father CAD (coronary artery disease) Cancer Diabetes Hyperlipidemia Mother Hypertension Psychiatric illness Brother Hypertension Denies family history of Clotting disorder Dementia Chronic kidney disease (CKD) Suicide Anesthesia complication Bleeding disorder Family history of premature coronary artery disease Lung disease Stroke Social History Smoking and tobacco status: unknown if ever smoked Second hand smoke exposure: No Alcohol intake: current Alcohol intake frequency: holidays/special occasions only Alcohol type: other Physical Exam Const: COMMON NORMALS: no acute distress, patient oriented x3, no limitations and alert Resp: COMMON NORMALS: normal respiratory effort and clear to auscultation bilaterally AUSCULTATION: clear to auscultation bilaterally Cardio: COMMON NORMALS: regular rate and regular rhythm RATE: regular rate RHYTHM: regular rhythm GI: COMMON NORMALS: Normal to inspection, nondistended, normoactive bowel sounds present, Soft to palpation, non-tender, No hepatosplenomegaly present and no masses PALPATION: Yes Soft to palpation and Yes No hepatosplenomegaly pr esent Extremity: OTHER: non-pitting edema to bilateral ankles/feet; no redness/warmth; no calf tenderness/swelling; pulses, cap refill, and sensation normal Neuro: COMMON NORMALS: patient oriented x3, moves all extremities, no focal motor deficits, no sensory deficits noted and gait normal SENSORIUM/ORIENTATION: Yes alert Skin: COMMON NORMALS: no rashes or lesions noted GENERAL SKIN EXAM: no rashes or lesions noted Course Vital Signs: Vital signs: Vital Signs Temperature 97.6 F 12/10/19 21:19 Pulse Rate 100 12/10/19 21:19 Respiratory Rate 18 12/10/19 21:43 Blood Pressure 138/83 12/10/19 21:19 Pulse Oximetry 95 12/10/19 21:19 MDM - Extremity (Nontraumatic) Lab Data: Labs: Lab Results 12/10/19 12/10/19 Range/Units 22:30 22:30 WBC 8.9 (4.0-10.0) 10^3/ uL RBC 4.65 (4.1-5.3) 10^6/u L Hgb 13.4 (11.5-15.3) g/dL Hct 41.1 (37.0-47.0) % MCV 88.4 (81-99) fL MCH 28.8 (28.0-34.0) pg MCHC 32.6 (30.0-36.0) g/dL RDW 13.3 (12.1-15.1) % Plt Count 302 (130-400) 10^3/c mm MPV 10.6 H (7.4-10.4) fL Neut % (Auto) 58.4 % Lymph % (Auto) 28.1 % [place] % (Auto) 9.9 % Eos % (Auto) 2.5 % Baso % (Auto) 0.9 % Neut # (Auto) 5.21 (1.8-7.7) 10^3/u L Lymph # (Auto) 2.5 (0.8-4.8) 10^3/u L [place] # (Auto) 0.9 (0.2-0.9) 10^3/u L Eos # (Auto) 0.2 (0.0-0.8) 10^3/u L Baso # (Auto) 0.1 (0.0-0.1) 10^3/u L Nucleated RBC % (a uto) 0 % Nucleated RBCs # 0.0 /100WBC Sodium 141 (136-145) mmol/L Potassium 3.0 L (3.5-5.1) mmol/L Chloride 104 (98-107) mmol/L Carbon Dioxide 27 (22-29) mmol/L Anion Gap 13.0 (5-19) BUN 9 (6-20) mg/dL Creatinine 0.9 (0.5-0.9) mg/dL GFR Calculation 66.8 L (90-130) mL/min Glucose 120 H (65-115) mg/dL Calculated Osmolal ity 289 (285-295) mOsm/k g Calcium 9.0 (8.5-10.5) mg/dL Total Bilirubin 0.4 (0.15-1.2) mg/dL AST 19 (0-32) U/L ALT 21 (0-33) U/L Alkaline Phosphata se 86 (35-105) IU/L NT-Pro-B Natriuret Pep 23 (0-125) pg/mL Total Protein 7.4 (6.6-8.7) g/dL Albumin 4.0 (3.5-5.2) g/dL Globulin 3.4 (1.3-4.6) g/dL Discharge Plan Discharge Patient Disposition: Home, Self-Care Clinical Impression: Bilateral edema of lower extremity Condition: Stable Prescriptions: No Action fluoxetine 20 mg/5 mL (4 mg/mL) solution 60 mg PO DAILY Qty: 450 RF: 1 isosorbide mononitrate 30 mg tablet extended release 24 hr 30 mg PO DAILY Qty: 30 RF: 6 aspirin [Aspir-81] 81 mg Tablet,Delayed Release (Dr/Ec) 81 mg PO DAILY RF: 0 nitroglycerin [Nitrostat] 0.4 mg Tablet, Sublingual 0.4 mg SUBLINGUAL Q5M PRN (Reason: Chest Pain) RF: 0 ibuprofen 800 mg tablet 800 mg PO Q8H PRN (Reason: pain) Qty: 30 RF: 0 ondansetron HCl [Zofran] 4 mg tablet 4 mg PO Q6H PRN (Reason: nausea and vomiting) Qty: 20 RF: 0 dicyclomine 20 mg tablet 20 mg PO QID Qty: 20 RF: 0 Discharge Orders: Discharge Order (Routine); Ordered 12/10/19 Ordered By: Sandhya Wyatt Activity Restrictions/Additional Instructions: As discussed you may purchase compression stockings to help with edema. In addition icing and elevating your extremities may also help. Please follow-up with primary care in 1 to 2 weeks if swelling persists. Coding Level of Care Code ED Mandarin Teacher for Toni Fwd Exam Detailed
[2019-12-10 22:43] LABS: Basophils # 0.1 10^3/uL (0.0-0.1); Basophils % 0.9 %; Eosinophils # 0.2 10^3/uL (0.0-0.8); Eosinophils % 2.5 %; Hematocrit 41.1 % (37.0-47.0); Hemoglobin 13.4 g/dL (11.5-15.3); Lymphocytes # 2.5 10^3/uL (0.8-4.8); Lymphocytes % 28.1 %; Mean Corpuscular HGB Conc 32.6 g/dL (30.0-36.0); Mean Corpuscular Hemoglobin 28.8 pg (28.0-34.0); Mean Corpuscular Volume 88.4 fL (81-99); Mean Platelet Volume 10.6 fL (7.4-10.4); Monocytes # 0.9 10^3/uL (0.2-0.9); Monocytes % 9.9 %; Neutrophils # 5.21 10^3/uL (1.8-7.7); Neutrophils % 58.4 %; Nucleated Red Blood Cells % 0 %; Platelet Count 302 10^3/cmm (130-400); Red Blood Count 4.65 10^6/uL (4.1-5.3); Red Cell Distribution Width 13.3 % (12.1-15.1); White Blood Count 8.9 10^3/uL (4.0-10.0)
[2019-12-10 23:13] LABS: Alanine Aminotransferase 21 U/L (0-33); Alkaline Phosphatase 86 IU/L (35-105); Aspartate Amino Transferase 19 U/L (0-32); Blood Urea Nitrogen 9 mg/dL (6-20); Carbon Dioxide 27 mmol/L (22-29); Chloride 104 mmol/L (98-107); Globulin 3.4 g/dL (1.3-4.6); Glomerular Filtration Rate 66.8 mL/min (90-130); Glucose 120 mg/dL (65-115); NT Pro B Type Natriuretic Pept 23 pg/mL (0-125); Osmolality Calculated 289 mOsm/kg (285-295); Sodium 141 mmol/L (136-145); Total Bilirubin 0.4 mg/dL (0.15-1.2); Total Protein 7.4 g/dL (6.6-8.7)
[2019-12-10] MEDS: potassium chloride ER 10 mEq Tablet 40 MEQ PO (23:20)
[2019-12-10 23:23] VITALS: RESP 16
== END 2019-12-10 23:23 | disposition home or self-care (01) ==
PROVIDERS: Emergency Provider Physician Assistant
DX: R60.0 Localized edema (principal); J44.9 Chronic obstructive pulmonary disease, unspecified; Z86.73 Personal history of transient ischemic attack (TIA), and cerebral infarction without residual deficits
CPT/HCPCS: 12345; 80053; 83880; 85025; 99281; 99283

== ENCOUNTER 2019-12-19 21:20 | Emergency (ER) | payer MEDICAID, SELFPAY ==
--- NOTE | 2019-12-19 21:21 | XR_ITS ---
WS: [id number] CHEST 2 VIEWS HISTORY: cough COMPARISON: 11/02/2019 Lungs: Clear with no abnormality. No pleural effusion or pneumothorax. Cardiac size: Normal. Mediastinum/Aorta: Normal mediastinum. Bones: Normal. XR/XR chest 2V* [id number] IMPRESSION: Normal chest.
[2019-12-19 21:31] VITALS: BP 135/81; PULSE 103; RESP 20; TEMP 36.8; O2SAT 96; BMI 35.2
--- NOTE | 2019-12-19 21:38 | W.ED.URI ---
HPI - URI/Sore Throat General: Chief Complaint: Upper Respiratory Infection Stated Complaint: cough Time Seen by Provider: 12/19/19 21:36 History of Present Illness: HPI Narrative: Patient is a 49-year-old female who comes to the ED with cough and nasal drainage. Patient says she has a past medical history COPD and she gets bronchitis about 2-3 times a year. She states that this is how her bronchitis symptoms usually start. Cough and nasal drainage started approximately 3 days ago. Cough is nonproductive. She feels a little short of breath today. Patient is not a smoker and denies any asthma history. Denies any fever, chills, chest pain, nausea/vomiting, diarrhea, constipation, blood in stool, dysuria or hematuria. Patient also having a headache. She rates her headache an 8 out of 10. Associated symptoms: Reports headache(s) and nasal congestion; Deny abdominal pain, chills, chest pain, diarrhea, fever(s), nausea or vomiting Review of Systems Const: Denies: fever(s), chills or fatigue Eyes: Denies: change in vision or eye discomfort ENMT: Reports: nasal discharge and nasal congestion; Denies: throat pain or odynophagia Card: Denies: chest pain, palpitations, edema, swelling of feet/ankles, dyspnea on exertion or orthopnea Resp: Reports: dyspnea and non-productive cough; Denies: productive cough or wheezing GI: Denies: abdominal pain, nausea, vomiting, diarrhea, constipation or hematochezia : Denies: flank pain, dysuria or hematuria Musc: Denies: neck pain, back pain or extremity swelling Skin/Breast: Denies: rash or new lesions Neuro: Reports: headache(s); Denies: numbness in extremities or weakness in extremities PFS ED PFSH: Medical History COPD (chronic obstructive pulmonary disease) CVA (cerebral vascular accident) Depression Major depressive disorder, recurrent, moderate Surgical History H/O laparoscopy H/O: hysterectomy History of cholecystectomy History of tubal ligation Hx of oophorectomy Family History Father CAD (coronary artery disease) Cancer Diabetes Hyperlipidemia Mother Hypertension Psychiatric illness Brother Hypertension Denies family history of Clotting disorder Dementia Chronic kidney disease (CKD) Suicide Anesthesia complication Bleeding disorder Family history of premature coronary artery disease Lung disease Stroke Social History Smoking and tobacco status: unknown if ever smoked Second hand smoke exposure: No Alcohol intake: current Alcohol intake frequency: holidays/special occasions only Alcohol type: other Physical Exam Const: COMMON NORMALS: no acute distress, patient oriented x3, healthy appearing and alert GENERAL APPEARANCE: cooperative and comfortable HENMT: COMMON NORMALS: normocephalic HEAD & SCALP: normocephalic NOSE: Nasal discharge present clear MOUTH: Normal oral and palatal mucosa present THROAT: posterior oropharynx normal and uvula midline Eye: COMMON NORMALS: Equal, round and reactive pupils present PUPIL: Yes Equal, round and reactive pupils present Neck/C-Spine: COMMON NORMALS: supple GENERAL: Yes normal visual inspection Resp: COMMON NORMALS: normal respiratory effort, No retractions and No use of accessory muscles EFFORT & INSPECTION: Yes tachypneic (Resp rate 20), No respiratory distress, No labored and Yes Actively coughing moist AUSCULTATION: crackles Laterality: right (base of lung) and diminished lung sounds bilateral in the lower lung colon Cardio: COMMON NORMALS: regular rate, regular rhythm, S1 normal heart sound present, S2 normal heart sound present, No gallops present (Cardio), No clicks present (Cardio), No murmurs present (Cardio) and Peripheral pulses 2+ throughout RATE: regular rate RHYTHM: regular rhythm HEART SOUNDS: S1 normal heart sound present and S2 normal heart sound present PERIPHERAL PULSES: Peripheral pulses 2+ throughout GI: COMMON NORMALS: Normal to inspection, nondistended, normoactive bowel sounds present, Soft to palpation, non-tender and no masses PALPATION: Yes Soft to palpation : COMMON NORMALS: Yes no CVA tenderness BLADDER/KIDNEY EXAM: Yes no CVA tenderness Back/Pelvis: COMMON NORMALS: no CVA tenderness Extremity: COMMON NORMALS: normal to inspection and no pedal edema Neuro: COMMON NORMALS: patient oriented x3 and moves all extremities SENSORIUM/ORIENTATION: Yes alert Skin: COMMON NORMALS: no rashes or lesions noted GENERAL SKIN EXAM: no rashes or lesions noted and dry skin Course Reevaluation(s): Reevaluation #1: After DuoNeb treatment and Toradol for headache patient states she is feeling a lot better and is ready to go home. She rates her headache now 4 out of 10. Patient says her lungs and breathing feel a lot better after DuoNeb treatment. I also discussed with patient about her elevated heart rate while here on the unit. Patient says she normally runs at this elevated heart rate around 95-110. Patient denies any palpitations or current chest pain. Vital Signs: Vital signs: Vital Signs Temperature 98.2 F 12/19/19 21:31 Pulse Rate 103 H 12/19/19 21:31 Respiratory Rate 20 H 12/19/19 21:31 Blood Pressure 135/81 12/19/19 21:31 Pulse Oximetry 96 12/19/19 21:31 MDM - URI/Sore Throat MDM Narrative: Medical decision making narrative: Patient is a 49-year-old female who comes to the ED with cough and nasal drainage, headache and shortness of breath. Patient is told she has a past medical history of COPD and has 2-3 episodes of bronchitis a year. Physical exam shows a patient in no acute distress but is a little tachypneic with 20 respiration per minute rate. Patient has decreased breath sounds at the base of the lungs bilaterally but no wheezing heard. She is actively coughing during my exam but it is nonproductive. White blood cell count is 11.8 and CMP is unremarkable. Chest x-ray showed no acute acute findings or pneumonia seen. Patient was given Toradol for headache and that improved while here in the ED. She was also given a DuoNeb breathing treatment while here on the unit and she states her breathing has greatly improved. Lungs sounded clear to auscultation and lung sounds at bases bilaterally improved. Patient was diagnosed with bronchitis and given a prescription for an albuterol inhaler, prednisone and azithromycin. Patient told to follow-up with PCP in 5 to 7 days for reevaluation. Patient understood and agrees with plan. Lab Data: Attestation: I reviewed the patient's lab results. Labs: Lab Results 12/19/19 12/19/19 Range/Units 22:07 22:07 WBC 11.8 H (4.0-10.0) 10^3/ uL RBC 4.68 (4.1-5.3) 10^6/u L Hgb 13.5 (11.5-15.3) g/dL Hct 41.3 (37.0-47.0) % MCV 88.2 (81-99) fL MCH 28.8 (28.0-34.0) pg MCHC 32.7 (30.0-36.0) g/dL RDW 13.3 (12.1-15.1) % Plt Count 294 (130-400) 10^3/c mm MPV 10.5 H (7.4-10.4) fL Neut % (Auto) 70.2 % Lymph % (Auto) 19.9 % [place] % (Auto) 7.7 % Eos % (Auto) 1.3 % Baso % (Auto) 0.6 % Neut # (Auto) 8.27 H (1.8-7.7) 10^3/u L Lymph # (Auto) 2.4 (0.8-4.8) 10^3/u L [place] # (Auto) 0.9 (0.2-0.9) 10^3/u L Eos # (Auto) 0.2 (0.0-0.8) 10^3/u L Baso # (Auto) 0.1 (0.0-0.1) 10^3/u L Nucleated RBC % (a uto) 0 % Nucleated RBCs # 0.0 /100WBC Sodium 138 (136-145) mmol/L Potassium 3.2 L (3.5-5.1) mmol/L Chloride 103 (98-107) mmol/L Carbon Dioxide 25 (22-29) mmol/L Anion Gap 13.2 (5-19) BUN 8 (6-20) mg/dL Creatinine 0.8 (0.5-0.9) mg/dL GFR Calculation 76.6 L (90-130) mL/min Glucose 125 H (65-115) mg/dL Calculated Osmolal ity 283 L (285-295) mOsm/k g Calcium 9.6 (8.5-10.5) mg/dL Total Bilirubin 0.4 (0.15-1.2) mg/dL AST 17 (0-32) U/L ALT 16 (0-33) U/L Alkaline Phosphata se 92 (35-105) IU/L Total Protein 7.5 (6.6-8.7) g/dL Albumin 4.3 (3.5-5.2) g/dL Globulin 3.2 (1.3-4.6) g/dL Imaging Data^: CXR: Attestation: I personally reviewed and interpreted this imaging study as follows: My impression: No acute findings. No pneumonia seen on x-ray. Pending final radiology report. Discharge Plan Discharge Patient Disposition: Home, Self-Care Clinical Impression: Bronchitis Condition: Stable Prescriptions: New azithromycin 250 mg tablet 250 mg PO DAILY 4 Days Qty: 4 RF: 0 prednisone 20 mg tablet 20 mg PO TID 5 Days Qty: 15 RF: 0 albuterol sulfate 90 mcg/actuation aerosol powdr breath activated 2 inh INHALATION Q6H PRN (Reason: shortness of breath or wheezing) Qty: 1 RF: 0 No Action fluoxetine 20 mg/5 mL (4 mg/mL) solution 60 mg PO DAILY Qty: 450 RF: 1 isosorbide mononitrate 30 mg tablet extended release 24 hr 30 mg PO DAILY Qty: 30 RF: 6 aspirin [Aspir-81] 81 mg Tablet,Delayed Release (Dr/Ec) 81 mg PO DAILY RF: 0 nitroglycerin [Nitrostat] 0.4 mg Tablet, Sublingual 0.4 mg SUBLINGUAL Q5M PRN (Reason: Chest Pain) RF: 0 ibuprofen 800 mg tablet 800 mg PO Q8H PRN (Reason: pain) Qty: 30 RF: 0 ondansetron HCl [Zofran] 4 mg tablet 4 mg PO Q6H PRN (Reason: nausea and vomiting) Qty: 20 RF: 0 dicyclomine 20 mg tablet 20 mg PO QID Qty: 20 RF: 0 Discharge Orders: Discharge Order (Routine); Ordered 12/19/19 Ordered By: Sidney Venegas Discharge Diet: Regular Discharge Activity: Increase activity as tolerated Patient Instructions: Acute Bronchitis (ED) Activity Restrictions/Additional Instructions: Follow-up with medical provider as directed in 5-7 days. Take medications as prescribed. Return to the ER or your medical provider if condition worsens or increased shortness of breath. Please read and understand discharge instructions. If any questions, please ask. Coding Level of Care Code ED Primary Care Sales Representative for Toni Fwd Exam Comprehensive
[2019-12-19] MEDS: sodium chloride 0.9% 1,000 ML 999 ML IV (21:40)
[2019-12-19 22:30] LABS: Alanine Aminotransferase 16 U/L (0-33); Albumin Level 4.3 g/dL (3.5-5.2); Alkaline Phosphatase 92 IU/L (35-105); Anion Gap 13.2 (5-19); Aspartate Amino Transferase 17 U/L (0-32); Blood Urea Nitrogen 8 mg/dL (6-20); Calcium 9.6 mg/dL (8.5-10.5); Carbon Dioxide 25 mmol/L (22-29); Chloride 103 mmol/L (98-107); Globulin 3.2 g/dL (1.3-4.6); Glomerular Filtration Rate 76.6 mL/min (90-130); Glucose 125 mg/dL (65-115); Osmolality Calculated 283 mOsm/kg (285-295); Potassium 3.2 mmol/L (3.5-5.1); Sodium 138 mmol/L (136-145); Total Bilirubin 0.4 mg/dL (0.15-1.2); Total Protein 7.5 g/dL (6.6-8.7)
[2019-12-19 22:41] LABS: Basophils # 0.1 10^3/uL (0.0-0.1); Basophils % 0.6 %; Eosinophils # 0.2 10^3/uL (0.0-0.8); Eosinophils % 1.3 %; Hematocrit 41.3 % (37.0-47.0); Hemoglobin 13.5 g/dL (11.5-15.3); Lymphocytes # 2.4 10^3/uL (0.8-4.8); Lymphocytes % 19.9 %; Mean Corpuscular HGB Conc 32.7 g/dL (30.0-36.0); Mean Corpuscular Hemoglobin 28.8 pg (28.0-34.0); Mean Corpuscular Volume 88.2 fL (81-99); Mean Platelet Volume 10.5 fL (7.4-10.4); Monocytes # 0.9 10^3/uL (0.2-0.9); Monocytes % 7.7 %; Neutrophils # 8.27 10^3/uL (1.8-7.7); Neutrophils % 70.2 %; Nucleated Red Blood Cells % 0 %; Platelet Count 294 10^3/cmm (130-400); Red Blood Count 4.68 10^6/uL (4.1-5.3); Red Cell Distribution Width 13.3 % (12.1-15.1); White Blood Count 11.8 10^3/uL (4.0-10.0)
[2019-12-19] MEDS: potassium chloride ER 10 mEq Tablet 20 MEQ PO (22:45)
[2019-12-19] MEDS: ketorolac 30 mg/mL INJ IVP (22:47)
[2019-12-19] MEDS: azithromycin 250 mg Tablet 500 MG PO (23:03)
--- NOTE | 2019-12-19 23:13 | PC.NURSE ---
during pt rounds, pt stating she has a DEL TORO 8/10 scale. request made to [employer]. orders obtained for toradol IVP
[2019-12-19 23:41] LABS: Influenza A by IFA Negative (Negative); Influenza B by IFA Negative (Negative)
[2019-12-19 23:55] VITALS: BP 117/64; PULSE 102; RESP 22; O2SAT 94
== END 2019-12-19 23:58 | disposition home or self-care (01) ==
PROVIDERS: Emergency Provider Physician Assistant
DX: J44.9 Chronic obstructive pulmonary disease, unspecified (principal); Z79.82 Long term (current) use of aspirin; Z86.73 Personal history of transient ischemic attack (TIA), and cerebral infarction without residual deficits
CPT/HCPCS: 12345; 36415; 71046; 80053; 85025; 87040; 87804; 96361; 96374; 96375; 99282; 99283; J1885; J2930; J7030; Q0144

== ENCOUNTER → 2019-12-22 08:04 | Outpatient (BNVA) | payer MEDICAID, SELFPAY | PROVIDERS: Visit Provider Social Worker Clinical | DX: F33.1 Major depressive disorder, recurrent, moderate (principal) | CPT/HCPCS: 90834 ==

== ENCOUNTER 2020-01-13 17:25 | Emergency (ER) | payer MEDICAID, SELFPAY ==
[2020-01-13 17:40] VITALS: BP 133/81; PULSE 109; RESP 18; TEMP 36.8; O2SAT 97; BMI 36.1
== END 2020-01-13 19:28 | disposition left against medical advice (07) ==
LOC: ER 17:33
PROVIDERS: Emergency Provider Emergency Medicine; PCP Nurse Practitioner
DX: Z53.21 Procedure and treatment not carried out due to patient leaving prior to being seen by health care provider (principal)
CPT/HCPCS: 99281

== ENCOUNTER 2020-01-23 11:04 | Outpatient (CLI) | payer MEDICAID, SELFPAY ==
[2020-01-24 16:42] LABS: Immunoglobulin E 57 kU/L (<OR=114)
[2020-01-25 18:37] LABS: Alternaria Alternata (M6) Ige <0.10 kU/L; Alternaria Class 0; Bermuda Class 0; Bermuda Grass (G2) Ige <0.10 kU/L; Cat Dander (E1) Ige <0.10 kU/L; Cat Dander Class 0; Common Ragweed (Short) (W1) Ig <0.10 kU/L; D. Farinae Class 0; Dermatophagoides Class 0; Dermatophagoides Farinae (D2) <0.10 kU/L; Dermatophagoides Pteronyssinus <0.10 kU/L; Dog Dander (E5) Ige <0.10 kU/L; Dog Dander Class 0; Elm (T8) Ige <0.10 kU/L; Elm Class 0; English Plantain (W9) Ige <0.10 kU/L; English Plantain Class 0; House Dust (Greer) (H1) Ige <0.10 kU/L; House Dust (Hollister- Stier) <0.10 kU/L; House Dust Class 0; Immunoglobulin E 61 kU/L (<OR=114); Johnson Grass (G10) Ige <0.10 kU/L; Johnson Grass Cl 0; June Grass Class 0; June Grass(Kentucky Blue) (G8) <0.10 kU/L; Lamb'S Quarters (Goose Foot) <0.10 kU/L; Lamb'S Quarters Class 0; Maple (Box Elder) (T1) Ige <0.10 kU/L; Maple Class 0; Meadow Fescue (G4) Ige <0.10 kU/L; Meadow Fescue Class 0; Mucor Racemosus Class 0; Oak (T7) Ige <0.10 kU/L; Oak Class 0; Orchard Grass (Cocksfoot) (G3) <0.10 kU/L; Penicillium Class 0; Penicillium Notatum (M1) Ige <0.10 kU/L; Perennial Rye Grass (G5) Ige <0.10 kU/L; Perennial Rye Grass Class 0; Ragweeed Class 0; Rough Marsh Elder (W16) Ige <0.10 kU/L; Rough Marsh Elder Class 0; Sweet Vernal Class 0; Sweet Vernal Grass (G1) Ige <0.10 kU/L; Timothy Grass (G6) Ige <0.10 kU/L; Timothy Grass Class 0
[2020-01-25 19:02] LABS: Aspergillus Fumigatus, Igg Ab, 12.9 mg/L (<=102)
== END 2020-01-23 11:05 | disposition home or self-care (01) ==
LOC: LAB 11:08
PROVIDERS: PCP Nurse Practitioner; Visit Provider Internal Medicine Critical Care Medicine
DX: J45.909 Unspecified asthma, uncomplicated (principal)
CPT/HCPCS: 82785; 86003

== ENCOUNTER → 2020-01-26 08:57 | Outpatient (BNVA) | payer MEDICAID, SELFPAY | PROVIDERS: Visit Provider Social Worker Clinical | DX: F33.1 Major depressive disorder, recurrent, moderate (principal) | CPT/HCPCS: 90832 ==

== ENCOUNTER → 2020-02-15 09:56 | Outpatient (BNVA) | payer MEDICAID, SELFPAY | PROVIDERS: Visit Provider Internal Medicine | DX: Z11.59 Encounter for screening for other viral diseases (principal); J44.9 Chronic obstructive pulmonary disease, unspecified | CPT/HCPCS: 87635 ==

== ENCOUNTER 2020-02-19 08:55 | Outpatient (CLI) | payer MEDICAID, SELFPAY ==
--- NOTE | 2020-02-19 09:30 | PFTS_ITS ---
Date of Study:02/19/20 Date of Dictation: MECHANICS: Forced vital capacity (FVC) is reduced. Forced expiratory volume in one second (FEV1) is reduced. FEV1/FVC is normal. FLOW VOLUME LOOP: Narrow. LUNG VOLUMES: Total lung capacity (TLC) is increased. Residual volume (RV) is increased. DIFFUSING CAPACITY FOR CARBON MONOXIDE: Increased. INTERPRETATION: The pulmonary function tests are consistent with nonspecific ventilatory limitation. The spirometry is consistent with moderate restriction but the lung volumes do not support the spirometry. The lung volumes are consistent with hyperinflation and air trapping. Gas exchange (DLCO) is increased. This constellation of pulmonary function test data can be seen in patients with asthma. MTDD
== END 2020-02-19 08:56 | disposition home or self-care (01) ==
LOC: RT 08:56
PROVIDERS: PCP Nurse Practitioner Family; Visit Provider Internal Medicine Critical Care Medicine
DX: J45.909 Unspecified asthma, uncomplicated (principal)
CPT/HCPCS: 94060; 94726; 94729; J7611

== ENCOUNTER → 2020-02-29 08:19 | Outpatient (BNVA) | payer MEDICAID, SELFPAY | PROVIDERS: PCP Nurse Practitioner Family; Visit Provider Social Worker Clinical | DX: F33.0 Major depressive disorder, recurrent, mild (principal) | CPT/HCPCS: 90834 ==

== ENCOUNTER 2020-03-04 16:15 | Emergency (ER) | payer MEDICAID, SELFPAY ==
[2020-03-04 16:28] VITALS: BP 131/87; PULSE 110; RESP 16; TEMP 36.8; O2SAT 97; BMI 32.9
[2020-03-04 17:16] LABS: Add Urine Microscopic? NO
[2020-03-04 17:22] LABS: Bilirubin Urine Neg (Negative); Blood Urine Neg (Negative); Glucose Urine UA Norm (Normal); Ketones Urine Negative (Negative); Leukocyte Esterase Urine Negative (Negative); Nitrate Urine Negative (Negative); Protein Urine Neg (Negative); Urine Appearance Clear (CLEAR); Urine Color Straw (Yellow); Urobilinogen Urine Norm (Negative); pH Urine 7 (5-7)
--- NOTE | 2020-03-04 18:52 | XR_ITS ---
WS: [id number] XR KUB portable [id number] REASON FOR EXAM: rlq abd pain FINDINGS: Post cholecystectomy with surgical clips in the right upper quadrant. No free air or retroperitoneal air. Unremarkable bowel gas pattern. No mass or significant calcification identified. XR/XR KUB portable [id number] IMPRESSION: No acute abnormality
--- NOTE | 2020-03-04 18:53 | W.ED.ABDPA2 ---
HPI - Abdominal Pain General: Chief Complaint: Abdominal Pain Stated Complaint: side pain/sickx2 days/ throwing up Time Seen by Provider: 03/04/20 18:44 History of Present Illness: HPI narrative: 49-year-old female presents with right lower quadrant abdominal pain. She reports that she started about 2 days ago. That she has had some diarrhea. She feels nauseated and feels like she could throw up. She denies any fevers or chills. Reports that the only thing she has left down there is her appendix states that she has had a hysterectomy and oophorectomy. She denies any fever, loss of sense of taste or smell. Associated Symptoms: Reports diarrhea, nausea and vomiting; Denies chills and fever(s) Review of Systems Const: Denies: fever(s) or chills Eyes: Denies: change in vision or blurry vision ENMT: Denies: throat pain Card: Denies: chest pain or palpitations Resp: Denies: dyspnea or wheezing GI: Reports: abdominal pain, nausea, vomiting and diarrhea : Denies: flank pain or difficulty voiding Musc: Denies: back pain Skin/Breast: Denies: rash or pruritus Neuro: Reports: headache(s) Psych: Denies: anxiety or depression PFSH ED PFSH: Medical History CVA (cerebral vascular accident) Depression Major depressive disorder, recurrent, moderate Surgical History H/O laparoscopy H/O: hysterectomy History of cholecystectomy History of tubal ligation Hx of oophorectomy Family History Father CAD (coronary artery disease) Cancer Diabetes Hyperlipidemia Mother Hypertension Psychiatric illness Brother Hypertension Denies family history of Clotting disorder Dementia Chronic kidney disease (CKD) Suicide Anesthesia complication Bleeding disorder Family history of premature coronary artery disease Lung disease Stroke Social History Smoking and tobacco status: never smoked Second hand smoke exposure: Yes Alcohol intake: current Alcohol intake frequency: holidays/special occasions only Alcohol type: other Lives independently: Yes Household members: family and children Marital status: Single Current occupational status: employed Current occupation: [employer] Current occupational exposures/hazards: No History of recent travel: No Current gender identity: Female Physical Exam Const: COMMON NORMALS: no acute distress and patient oriented x3 NUTRITIONAL APPEARANCE: obese centrally obese HENMT: COMMON NORMALS: Normal external nose present and moist oral mucous membranes NOSE: Normal external nose present Eye: COMMON NORMALS: EOMs intact bilaterally GENERAL EYE: appearance normal, both eyes and all related structures Resp: COMMON NORMALS: normal respiratory effort, No retractions, No use of accessory muscles and clear to auscultation bilaterally AUSCULTATION: clear to auscultation bilaterally Cardio: COMMON NORMALS: regular rate and regular rhythm RATE: regular rate RHYTHM: regular rhythm GI: COMMON NORMALS: Soft to palpation PALPATION: Yes Soft to palpation, Yes Tenderness to palpation present (GI) Details: RLQ, No Guarding due to palpation present (GI) and No Rigid due to palpation : COMMON NORMALS: Yes no CVA tenderness BLADDER/KIDNEY EXAM: Yes no CVA tenderness Back/Pelvis: COMMON NORMALS: no CVA tenderness Extremity: COMMON NORMALS: normal to inspection and full ROM Neuro: COMMON NORMALS: patient oriented x3, CN's II-XII intact bilaterally and moves all extremities Psych: COMMON NORMALS: mental status grossly normal, cooperative and normal affect Skin: COMMON NORMALS: no rashes or lesions noted GENERAL SKIN EXAM: no rashes or lesions noted Course Vital Signs: Vital signs: Vital Signs Temperature 98.3 F 03/04/20 16:28 Pulse Rate 76 03/04/20 19:56 Respiratory Rate 18 03/04/20 19:56 Blood Pressure 131/87 03/04/20 16:28 Pulse Oximetry 97 03/04/20 16:28 MDM - Abdominal Pain MDM Narrative: Medical decision making narrative: Patient with no acute findings on labs or CT abdomen and pelvis. Discussed with her she likely has a gastroenteritis. Patient should follow-up with her primary care provider as needed. Patient will be discharged home in stable condition Medical Records: Attestation: I reviewed the patient's medical records. Lab Data: Attestation: I reviewed the patient's lab results. Labs: Lab Results 03/04/20 03/04/20 03/04/20 Range/Units 16:51 19:38 19:38 WBC 9.3 (4.0-10.0) 10^3/ uL RBC 4.84 (4.1-5.3) 10^6/u L Hgb 14.0 (11.5-15.3) g/dL Hct 44.1 (37.0-47.0) % MCV 91.1 (81-99) fL MCH 28.9 (28.0-34.0) pg MCHC 31.7 (30.0-36.0) g/dL RDW 12.8 (12.1-15.1) % Plt Count 283 (130-400) 10^3/c mm MPV 10.2 (7.4-10.4) fL Neut % (Auto) 62.5 % Lymph % (Auto) 24.3 % [place] % (Auto) 8.4 % Eos % (Auto) 3.7 % Baso % (Auto) 0.8 % Neut # (Auto) 5.83 (1.8-7.7) 10^3/u L Lymph # (Auto) 2.3 (0.8-4.8) 10^3/u L [place] # (Auto) 0.8 (0.2-0.9) 10^3/u L Eos # (Auto) 0.3 (0.0-0.8) 10^3/u L Baso # (Auto) 0.1 (0.0-0.1) 10^3/u L Nucleated RBC % (a uto) 0 % Nucleated RBCs # 0.0 /100WBC Sodium 139 (136-145) mmol/L Potassium 3.5 (3.5-5.1) mmol/L Chloride 102 (98-107) mmol/L Carbon Dioxide 27 (22-29) mmol/L Anion Gap 13.5 (5-19) BUN 7 (6-20) mg/dL Creatinine 0.7 (0.5-0.9) mg/dL GFR Calculation 89.3 L (90-130) mL/min Glucose 132 H (65-115) mg/dL Calculated Osmolal ity 288 (285-295) mOsm/k g Calcium 9.2 (8.5-10.5) mg/dL Total Bilirubin 0.2 (0.15-1.2) mg/dL AST 22 (0-32) U/L ALT 27 (0-33) U/L Alkaline Phosphata se 98 (35-105) IU/L Total Protein 7.3 (6.6-8.7) g/dL Albumin 3.8 (3.5-5.2) g/dL Globulin 3.5 (1.3-4.6) g/dL Lipase 26 (13-60) U/L Urine Color Straw (Yellow) Urine Appearance Clear (CLEAR) Urine pH 7 (5-7) Ur Specific Gravit y 1.010 (1.005-1.030) Urine Protein Neg (Negative) Urine Glucose (UA) Norm (Normal) Urine Ketones Negative (Negative) Urine Blood Neg (Negative) Urine Nitrate Negative (Negative) Urine Bilirubin Neg (Negative) Urine Urobilinogen Norm (Negative) mg/dL Ur Leukocyte Shari ase Negative (Negative) Imaging Data ^: CT Abd/Pel: Attestation: I personally reviewed and interpreted this imaging study as follows: My impression: no acute finding Radiologist's impression: IMPRESSION: No acute abnormality is seen in the abdomen or pelvis. No evidence of acute appendicitis KUB: Attestation: I personally reviewed and interpreted this imaging study as follows: My impression: no acute findings Discharge Plan Discharge Patient Disposition: Home Clinical Impression: Gastroenteritis Abdominal pain Qualifiers: Abdominal location: right lower quadrant Qualified Code(s): R10.31 - Right lower quadrant pain Condition: Stable Prescriptions: New ondansetron HCl [Zofran] 4 mg tablet 4 mg PO Q8H 5 Days Qty: 15 RF: 0 No Action prednisone 20 mg tablet 20 mg PO TID RF: 0 albuterol sulfate 2.5 mg /3 mL (0.083 %) solution for nebulization 2.5 mg INHALATION Q4H PRNRF: 0 budesonide-formoterol [Symbicort] 80-4.5 mcg/actuation HFA aerosol inhaler 2 puff INHALATION Q12H 30 Days Qty: 10.2 RF: 2 Spiriva Respimat 1.25 mcg/actuation mist 2 puff INHALATION Q24H 30 Days Qty: 4 RF: 3 fluoxetine 20 mg/5 mL (4 mg/mL) solution 60 mg PO DAILY Qty: 450 RF: 1 naproxen 500 mg tablet 500 mg PO BID Qty: 20 RF: 0 isosorbide mononitrate 30 mg tablet extended release 24 hr 30 mg PO DAILY Qty: 30 RF: 6 aspirin [Aspir-81] 81 mg Tablet,Delayed Release (Dr/Ec) 81 mg PO DAILY RF: 0 nitroglycerin [Nitrostat] 0.4 mg Tablet, Sublingual 0.4 mg SUBLINGUAL Q5M PRN (Reason: Chest Pain) RF: 0 ibuprofen 800 mg tablet 800 mg PO Q8H PRN (Reason: pain) Qty: 30 RF: 0 albuterol sulfate 90 mcg/actuation aerosol powdr breath activated 2 inh INHALATION Q6H PRN (Reason: shortness of breath or wheezing) Qty: 1 RF: 0 Discharge Orders: Discharge Order (Routine); Ordered 03/04/20 Ordered By: Fidel Penn Discharge Diet: Regular Discharge Activity: Resume usual activity Patient Instructions: Abdominal Pain (ED) Activity Restrictions/Additional Instructions: Follow-up with your primary care provider if symptoms or not improving in 5 or 6 days or if they significantly worsen Stand Alone Forms: Work/School Release Coding Level of Care Code ED School Director for Toni Fwd Exam Comprehensive
[2020-03-04 19:55] LABS: Basophils # 0.1 10^3/uL (0.0-0.1); Basophils % 0.8 %; Eosinophils # 0.3 10^3/uL (0.0-0.8); Eosinophils % 3.7 %; Hematocrit 44.1 % (37.0-47.0); Lymphocytes # 2.3 10^3/uL (0.8-4.8); Lymphocytes % 24.3 %; Mean Corpuscular HGB Conc 31.7 g/dL (30.0-36.0); Mean Corpuscular Hemoglobin 28.9 pg (28.0-34.0); Mean Corpuscular Volume 91.1 fL (81-99); Mean Platelet Volume 10.2 fL (7.4-10.4); Monocytes # 0.8 10^3/uL (0.2-0.9); Monocytes % 8.4 %; Neutrophils # 5.83 10^3/uL (1.8-7.7); Neutrophils % 62.5 %; Nucleated Red Blood Cells % 0 %; Platelet Count 283 10^3/cmm (130-400); Red Blood Count 4.84 10^6/uL (4.1-5.3); Red Cell Distribution Width 12.8 % (12.1-15.1); White Blood Count 9.3 10^3/uL (4.0-10.0)
[2020-03-04] MEDS: sodium chloride 0.9% 1,000 ML 999 ML IV (19:55)
[2020-03-04] MEDS: ondansetron 2 mg/ML SDV 2 mL 4 MG IVP (19:55)
[2020-03-04 19:56] VITALS: PULSE 76; RESP 18
[2020-03-04 20:13] LABS: Alanine Aminotransferase 27 U/L (0-33); Albumin Level 3.8 g/dL (3.5-5.2); Alkaline Phosphatase 98 IU/L (35-105); Anion Gap 13.5 (5-19); Aspartate Amino Transferase 22 U/L (0-32); Blood Urea Nitrogen 7 mg/dL (6-20); Calcium 9.2 mg/dL (8.5-10.5); Carbon Dioxide 27 mmol/L (22-29); Chloride 102 mmol/L (98-107); Globulin 3.5 g/dL (1.3-4.6); Glomerular Filtration Rate 89.3 mL/min (90-130); Glucose 132 mg/dL (65-115); Lipase 26 U/L (13-60); Osmolality Calculated 288 mOsm/kg (285-295); Potassium 3.5 mmol/L (3.5-5.1); Sodium 139 mmol/L (136-145); Total Bilirubin 0.2 mg/dL (0.15-1.2); Total Protein 7.3 g/dL (6.6-8.7)
--- NOTE | 2020-03-04 20:57 | CTR_ITS ---
PROCEDURE INFORMATION: Exam: CT Abdomen And Pelvis With Contrast Exam date and time: 03/04/2020 9:08 PM Age: 49 years old Clinical indication: Nausea and other: Diarrhea; Abdominal pain; Localized; Right lower quadrant (rlq); Prior surgery; Surgery type: Gb, hyst; Additional info: Rlq pain TECHNIQUE: Imaging protocol: Computed tomography of the abdomen and pelvis with intravenous contrast. Radiation optimization: All CT scans at this facility use at least one of these dose optimization techniques: automated exposure control; mA and/or kV adjustment per patient size (includes targeted exams where dose is matched to clinical indication); or iterative reconstruction. Contrast material: OMNI 300; Contrast volume: 95 ml; Contrast route: INTRAVENOUS (IV); COMPARISON: CT abdomen pelvis w con* [id number] 11/02/2019 4:14 PM RADIATION DOSE METRICS: Total DLP (mGy-cm): 1290.44 FINDINGS: Liver: Elongation of the right hepatic lobe is likely a normal variant Bk's lobe. No parenchymal lesion is seen. Gallbladder and bile ducts: The gallbladder has been removed. No biliary ductal dilatation. Pancreas: Normal. No ductal dilation. Spleen: Normal. No splenomegaly. Adrenals: Normal. No mass. Kidneys and ureters: Normal. No hydronephrosis. Stomach and bowel: Unremarkable. No obstruction. No mucosal thickening. Appendix: The appendix is not visualized; however, no inflammatory changes or fluid are seen at the tip of the cecum to suggest appendicitis. Intraperitoneal space: Unremarkable. No free air. No significant fluid collection. Vasculature: Unremarkable. No abdominal aortic aneurysm. Lymph nodes: Unremarkable. No enlarged lymph nodes. Urinary bladder: Unremarkable as visualized. Reproductive: The uterus is absent. A small 2.4 cm left ovarian cyst is noted. The right ovary is not clearly identified. Bones/joints: Unremarkable. No acute fracture. Soft tissues: Unremarkable. CT/CT abdomen pelvis w con* [id number] IMPRESSION: No acute abnormality is seen in the abdomen or pelvis. No evidence of acute appendicitis Radiation Dose CTDIVOL = (mGy): DLP = 1290.44 (mGy-cm)
[2020-03-04] MEDS: iohexol 300 mg/mL 100 mL Btl IV (21:26)
[2020-03-04 22:48] VITALS: BP 134/76; PULSE 87; RESP 16; O2SAT 98
[2020-03-04 22:56] LABS: C Reactive Protein 10.4 mg/L (0.0-4.9)
== END 2020-03-04 22:50 | disposition home or self-care (01) ==
PROVIDERS: Family Medicine; Emergency Provider Student in an Organized Health Care Education/Training Program
DX: K52.9 Noninfective gastroenteritis and colitis, unspecified (principal); Z79.82 Long term (current) use of aspirin; Z77.22 Contact with and (suspected) exposure to environmental tobacco smoke (acute) (chronic); Z86.73 Personal history of transient ischemic attack (TIA), and cerebral infarction without residual deficits
CPT/HCPCS: 12345; 74018; 74177; 80053; 81003; 83690; 85025; 86140; 96361; 96374; 96375; 99282; 99283; J2405; J7030; Q9967

== ENCOUNTER 2020-03-11 17:36 | Emergency (ER) | payer MEDICAID, SELFPAY ==
[2020-03-11 17:46] VITALS: BP 156/79; PULSE 93; RESP 16; TEMP 36.6; O2SAT 98; BMI 33.8
--- NOTE | 2020-03-11 17:58 | XRR_ITS ---
PROCEDURE INFORMATION: Exam: XR Right Knee Exam date and time: 03/11/2020 6:24 PM Age: 49 years old Clinical indication: Pain and injury or trauma; Fall; Blunt trauma; Knee; Right; Injury date: 03/11/20; Additional info: Right knee pain and injury TECHNIQUE: Imaging protocol: XR Right knee. Views: 3 views. COMPARISON: No relevant prior studies available. FINDINGS: Bones/joints: Osseous structures of the knee normal. No fracture. No joint effusion. Soft tissues unremarkable. Soft tissues: See Bones/joints finding. XR/XR knee RT 3V* [id number] IMPRESSION: Normal knee.
--- NOTE | 2020-03-11 20:10 | W.ED.EXTPRO ---
HPI - Extremity Problem General: Chief complaint: Extremity Injury, Lower Stated complaint: fall/knee pain Time Seen by Provider: 03/11/20 20:07 History of Present Illness: HPI Narrative: Patient is a 49-year-old female who comes to the ED with right knee pain. Just prior to arrival patient says she was stepping over a dog gate in her house in fell twisting her right knee. She states that she now has pain whenever she ambulates or puts any weight on the right knee. She also says her right knee feels unstable. Patient took some Tylenol before coming to the ED. She rates her pain a 9 out of 10. Associated symptoms: Deny chest pain, fever(s) or rash Review of Systems Const: Denies: fever(s), chills or fatigue Eyes: Denies: change in vision or eye discomfort ENMT: Denies: throat pain, odynophagia, nasal discharge or nasal congestion Card: Denies: chest pain, palpitations, edema, swelling of feet/ankles, dyspnea on exertion or orthopnea Resp: Denies: dyspnea, productive cough or non-productive cough GI: Denies: abdominal pain, nausea, vomiting, diarrhea, constipation or hematochezia : Denies: flank pain, dysuria or hematuria Musc: Reports: extremity pain (right knee) and extremity swelling (right knee); Denies: neck pain or back pain Skin/Breast: Denies: rash or new lesions Neuro: Denies: headache(s), numbness in extremities or weakness in extremities PFS ED PFSH: Medical History CVA (cerebral vascular accident) Depression Major depressive disorder, recurrent, moderate Surgical History H/O laparoscopy H/O: hysterectomy History of cholecystectomy History of tubal ligation Hx of oophorectomy Family History Father CAD (coronary artery disease) Cancer Diabetes Hyperlipidemia Mother Hypertension Psychiatric illness Brother Hypertension Denies family history of Clotting disorder Dementia Chronic kidney disease (CKD) Suicide Anesthesia complication Bleeding disorder Family history of premature coronary artery disease Lung disease Stroke Social History Smoking and tobacco status: never smoked Second hand smoke exposure: Yes Alcohol intake: current Alcohol intake frequency: holidays/special occasions only Alcohol type: other Lives independently: Yes Household members: family and children Marital status: Single Current occupational status: employed Current occupation: [employer] Current occupational exposures/hazards: No History of recent travel: No Current gender identity: Female Physical Exam Const: COMMON NORMALS: no acute distress, patient oriented x3 and alert GENERAL APPEARANCE: cooperative and comfortable HENMT: COMMON NORMALS: normocephalic HEAD & SCALP: normocephalic MOUTH: Normal oral and palatal mucosa present THROAT: posterior oropharynx normal and uvula midline Neck/C-Spine: COMMON NORMALS: supple GENERAL: Yes normal visual inspection Resp: COMMON NORMALS: normal respiratory effort, No retractions, No use of accessory muscles and clear to auscultation bilaterally AUSCULTATION: clear to auscultation bilaterally Cardio: COMMON NORMALS: regular rate, regular rhythm, S1 normal heart sound present, S2 normal heart sound present, No gallops present (Cardio), No clicks present (Cardio), No murmurs present (Cardio) and Peripheral pulses 2+ throughout RATE: regular rate RHYTHM: regular rhythm HEART SOUNDS: S1 normal heart sound present and S2 normal heart sound present PERIPHERAL PULSES: Peripheral pulses 2+ throughout GI: COMMON NORMALS: Normal to inspection, nondistended, normoactive bowel sounds present, Soft to palpation, non-tender and no masses PALPATION: Yes Soft to palpation : COMMON NORMALS: Yes no CVA tenderness BLADDER/KIDNEY EXAM: Yes no CVA tenderness Back/Pelvis: COMMON NORMALS: no CVA tenderness Extremity: NARRATIVE EXTREMITY EXAM: Right knee -no visible deformity, ecchymosis or edema. Neurovascular intact distally. Limited range of motion due to pain. Tenderness upon palpation throughout knee. GENERAL: Yes normal exam except as noted Neuro: COMMON NORMALS: patient oriented x3 and moves all extremities SENSORIUM/ORIENTATION: Yes alert Skin: COMMON NORMALS: no rashes or lesions noted GENERAL SKIN EXAM: no rashes or lesions noted and dry skin Course Vital Signs: Vital signs: Vital Signs Temperature 97.9 F 03/11/20 17:46 Pulse Rate 83 03/11/20 20:53 Respiratory Rate 16 03/11/20 20:53 Blood Pressure 134/82 03/11/20 20:53 Pulse Oximetry 98 03/11/20 20:52 MDM - Extremity (Nontraumatic) MDM Narrative: Medical decision making narrative: Patient is a 49-year-old female comes to the ED with right knee pain. Patient says she injured it just prior to arrival when she was stepping over a dog gate and twisted right knee. Right knee -no visible deformity, ecchymosis or edema. Neurovascular intact distally. Limited range of motion due to pain. Tenderness upon palpation throughout knee. X-ray shows no acute fractures or findings. Patient was put in knee immobilizer and sent home with crutches. She was told to follow-up with her PCP in 7 to 10 days for reevaluation. She was given a prescription for 800 mg of ibuprofen. Rest, ice and elevate right knee. Return to ED precautions given. Patient understood agree with plan. Imaging Data^: Xray Ortho: Attestation: I personally reviewed and interpreted this imaging study as follows: My impression: Right knee x-ray?no acute fractures or findings. Pending final radiology report. Discharge Plan Discharge Patient Disposition: Home Clinical Impression: Acute knee pain Qualifiers: Laterality: right Qualified Code(s): M25.561 - Pain in right knee Condition: Stable Prescriptions: New ibuprofen 800 mg tablet 800 mg PO Q8H PRN (Reason: pain) Qty: 30 RF: 0 No Action prednisone 20 mg tablet 20 mg PO TID RF: 0 albuterol sulfate 2.5 mg /3 mL (0.083 %) solution for nebulization 2.5 mg INHALATION Q4H PRNRF: 0 budesonide-formoterol [Symbicort] 80-4.5 mcg/actuation HFA aerosol inhaler 2 puff INHALATION Q12H 30 Days Qty: 10.2 RF: 2 fluoxetine 20 mg/5 mL (4 mg/mL) solution 60 mg PO DAILY Qty: 450 RF: 1 naproxen 500 mg tablet 500 mg PO BID Qty: 20 RF: 0 isosorbide mononitrate 30 mg tablet extended release 24 hr 30 mg PO DAILY Qty: 30 RF: 6 Spiriva with HandiHaler 18 mcg capsule, w/inhalation device 1 cap INHALATION DAILY Qty: 30 RF: 3 aspirin [Aspir-81] 81 mg Tablet,Delayed Release (Dr/Ec) 81 mg PO DAILY RF: 0 nitroglycerin [Nitrostat] 0.4 mg Tablet, Sublingual 0.4 mg SUBLINGUAL Q5M PRN (Reason: Chest Pain) RF: 0 ibuprofen 800 mg tablet 800 mg PO Q8H PRN (Reason: pain) Qty: 30 RF: 0 albuterol sulfate 90 mcg/actuation aerosol powdr breath activated 2 inh INHALATION Q6H PRN (Reason: shortness of breath or wheezing) Qty: 1 RF: 0 Discharge Orders: Discharge Order (Routine); Ordered 03/11/20 Ordered By: Sidney Venegas Discharge Diet: Regular Discharge Activity: Limit activity as instructed and Use walker/crutches as instructed Patient Instructions: Knee Pain (ED) Activity Restrictions/Additional Instructions: Follow-up with medical provider as directed in 5 to 7 days for reevaluation. Wear knee immobilizer and use crutches to help ambulate. Limit any weightbearing on right leg. Rest, ice and elevate right leg. Take medications as prescribed. If you are taking the prescribed ibuprofen stop taking naproxen because they are similar medication. Return to the ER or your medical provider if condition worsens. Please read and understand discharge instructions. If any questions, please ask. Discharge Date/Time: 03/11/20 21:05 Coding Level of Care Code ED Hydraulic Lift Driver for Toni Fwstephanie Exam Comprehensive
[2020-03-11] MEDS: ketorolac 60 mg/2 mL INJ IM (20:48)
[2020-03-11 20:52] VITALS: BP 134/82; PULSE 83; RESP 16; O2SAT 98
[2020-03-11 20:53] VITALS: BP 134/82; PULSE 83; RESP 16
== END 2020-03-11 21:05 | disposition home or self-care (01) ==
PROVIDERS: Emergency Provider Physician Assistant
DX: M25.561 Pain in right knee (principal); Z79.82 Long term (current) use of aspirin; Z86.73 Personal history of transient ischemic attack (TIA), and cerebral infarction without residual deficits; Z77.22 Contact with and (suspected) exposure to environmental tobacco smoke (acute) (chronic)
CPT/HCPCS: 12345; 29530; 73562; 96372; 99281; 99283; E0114; J1885

== ENCOUNTER → 2020-03-14 07:51 | Outpatient (BNVA) | payer MEDICAID, SELFPAY | PROVIDERS: PCP Nurse Practitioner Family; Visit Provider Social Worker Clinical | DX: F33.1 Major depressive disorder, recurrent, moderate (principal) | CPT/HCPCS: 90832 ==

== ENCOUNTER → 2020-04-04 08:29 | Outpatient (BNVA) | payer MEDICAID, SELFPAY | PROVIDERS: PCP Nurse Practitioner Family; Visit Provider Social Worker Clinical | DX: F33.1 Major depressive disorder, recurrent, moderate (principal) | CPT/HCPCS: 90791 ==

== ENCOUNTER → 2020-04-09 07:40 | Outpatient (BNVA) | payer MEDICAID, SELFPAY | PROVIDERS: PCP Nurse Practitioner Family; Visit Provider Nurse Practitioner | DX: F33.1 Major depressive disorder, recurrent, moderate (principal) | CPT/HCPCS: 99214 ==

== ENCOUNTER → 2020-04-18 08:29 | Outpatient (BNVA) | payer MEDICAID, SELFPAY | PROVIDERS: PCP Nurse Practitioner Family; Visit Provider Social Worker Clinical | DX: F33.1 Major depressive disorder, recurrent, moderate (principal) | CPT/HCPCS: 90832 ==

== ENCOUNTER → 2020-04-19 08:44 | Outpatient (BNVA) | payer MEDICAID, SELFPAY | PROVIDERS: PCP Nurse Practitioner Family; Visit Provider Nurse Practitioner Family | DX: Z20.828 Contact with and (suspected) exposure to other viral communicable diseases (principal) | CPT/HCPCS: 87635 ==

== ENCOUNTER 2020-05-03 15:51 | Emergency (ER) | payer MEDICAID, SELFPAY ==
[2020-05-03 15:53] VITALS: BP 129/84; PULSE 101; RESP 18; TEMP 36.9; O2SAT 97; BMI 36.1
[2020-05-03 16:01] VITALS: BP 109/65; PULSE 98; RESP 18; O2SAT 98
--- NOTE | 2020-05-03 16:20 | CTR_ITS ---
PROCEDURE INFORMATION: Exam: CT Head Without Contrast Exam date and time: 05/03/2020 4:45 PM Age: 49 years old Clinical indication: Weakness, extremity; Right; Patient HX: C/O R sided weakness; Additional info: R sided numbness TECHNIQUE: Imaging protocol: Computed tomography of the head without contrast. Radiation optimization: All CT scans at this facility use at least one of these dose optimization techniques: automated exposure control; mA and/or kV adjustment per patient size (includes targeted exams where dose is matched to clinical indication); or iterative reconstruction. COMPARISON: CT head wo con* [id number] 11/15/2019 9:03 PM RADIATION DOSE METRICS: Total DLP (mGy-cm): 720.2 FINDINGS: Brain: Unremarkable. No hemorrhage. No significant white matter disease. No edema. Cerebral ventricles: No ventriculomegaly. Bones/joints: Unremarkable. No acute fracture. Paranasal sinuses: Visualized sinuses are unremarkable. No fluid levels. Mastoid air cells: Unremarkable as visualized. No mastoid effusion. Soft tissues: Unremarkable. CT/CT head wo con* [id number] IMPRESSION: 1. No acute intracranial abnormality demonstrated. 2. There is no interval change from the prior examination. Radiation Dose CTDIVOL = (mGy): DLP = 720.2 (mGy-cm)
--- NOTE | 2020-05-03 16:20 | ECG_ITS ---
[facility] Test Date: 2020-05-03 Pat Name: Gale Veloz Department: Room: Gender: Female Veterinary Surgeon: : 1970 Requested By: Sonny Silva Order Number: [id number] Sohail MD: Ace Nobles M.D. Measurements Intervals [place] Rate: 98 P: 62 TN: 172 QRS: 51 QRSD: 86 T: 60 QT: 341 QTc: 437 Interpretive Statements SINUS RHYTHM NONSPECIFIC T-WAVE ABNORMALITY Compared to ECG 11/15/2019 22:41:51 Sinus tachycardia no longer present T-wave abnormality still present Electronically Signed On 05-03-2020 19:15:58 [employer]PERVISOR [employer] by Ace Nobles M.D. [email or web address]
[2020-05-03] MEDS: sodium chloride 0.9% 500 ML IV (16:35)
[2020-05-03 16:55] LABS: Add Urine Microscopic? NO
[2020-05-03 16:59] LABS: Basophils # 0.1 10^3/uL (0.0-0.1); Basophils % 0.7 %; Eosinophils # 0.2 10^3/uL (0.0-0.8); Eosinophils % 1.8 %; Hematocrit 42.3 % (37.0-47.0); Lymphocytes # 1.3 10^3/uL (0.8-4.8); Lymphocytes % 14.7 %; Mean Corpuscular HGB Conc 33.1 g/dL (30.0-36.0); Mean Corpuscular Hemoglobin 28.7 pg (28.0-34.0); Mean Corpuscular Volume 86.9 fL (81-99); Mean Platelet Volume 10.2 fL (7.4-10.4); Monocytes # 0.9 10^3/uL (0.2-0.9); Monocytes % 9.8 %; Neutrophils % 72.7 %; Nucleated Red Blood Cells % 0 %; Platelet Count 282 10^3/cmm (130-400); Red Blood Count 4.87 10^6/uL (4.1-5.3); Red Cell Distribution Width 13.3 % (12.1-15.1); White Blood Count 9.1 10^3/uL (4.0-10.0)
[2020-05-03 17:01] LABS: Bilirubin Urine Neg (Negative); Blood Urine Neg (Negative); Glucose Urine UA Norm (Normal); Ketones Urine Negative (Negative); Leukocyte Esterase Urine Negative (Negative); Nitrate Urine Negative (Negative); Protein Urine Neg (Negative); Urine Appearance Clear (CLEAR); Urine Color Yellow (Yellow); Urobilinogen Urine 4 mg/dL (Negative); pH Urine 7 (5-7)
[2020-05-03 17:17] LABS: Alanine Aminotransferase 24 U/L (0-33); Albumin Level 4.1 g/dL (3.5-5.2); Alkaline Phosphatase 110 IU/L (35-105); Anion Gap 10.8 (5-19); Aspartate Amino Transferase 23 U/L (0-32); Blood Urea Nitrogen 7 mg/dL (6-20); Calcium 9.1 mg/dL (8.5-10.5); Carbon Dioxide 30 mmol/L (22-29); Chloride 105 mmol/L (98-107); Glomerular Filtration Rate 89.3 mL/min (90-130); Glucose 108 mg/dL (65-115); Osmolality Calculated 293 mOsm/kg (285-295); Potassium 3.8 mmol/L (3.5-5.1); Sodium 142 mmol/L (136-145); Total Bilirubin 0.3 mg/dL (0.15-1.2); Total Protein 7.1 g/dL (6.6-8.7)
--- NOTE | 2020-05-03 17:43 | W.ED.WEAKNES ---
Documented by User: Sonny Torres DO 05/04/20 09:10 HPI - Weakness General: Chief complaint: Weakness Stated complaint: WEAKNESS ON RIGHT SIDE Time Seen by Provider: 05/03/20 15:59 History of Present Illness: HPI Narrative: 49-year-old female presents emergency room with complaint of weakness on her right side. She was recently diagnosed with an inner ear infection has a perforated right here per her report. She is just generally not been feeling well the last couple of days now she is having a [id number] fine symptoms in her right leg. She denies any vomiting or diarrhea denies any cough shortness of breath denies any chest pain denies any headache or head injury recently. Has not previously had any strokes. She denies any history of diabetes or hypertension. MD Complaint: focal weakness Onset (ago): hour(s) Duration: constant Location: RUE and RLE Migration: distal Severity: mild Quality: tingling and numbness Relieving factors: none Exacerbating factors: none Associated symptoms: Denies chest pain, chills, confusion, melena, decreased appetite, diaphoresis, dysuria, easy bruising, fever(s), headache(s), myalgias, nausea, rash, short of breath, syncope or vomiting Review of Systems Const: Denies: fever(s), chills or diaphoresis ENMT: Denies: throat pain, ear or mastoid pain, nasal discharge or nasal congestion Card: Denies: chest pain or syncope Resp: Denies: dyspnea, productive cough or non-productive cough GI: Denies: nausea, vomiting or melena : Denies: dysuria Skin/Breast: Denies: rash or pruritus Neuro: Denies: headache(s) or confusion Sushil/Lymph: Denies: easy bruising PFS ED PFSH: Medical History (Updated 05/03/20 @ 22:18 by Greg Stephens DO) CVA (cerebral vascular accident) Depression Major depressive disorder, recurrent, moderate Surgical History H/O laparoscopy H/O: hysterectomy History of cholecystectomy History of tubal ligation Hx of oophorectomy Family History Father CAD (coronary artery disease) Cancer Diabetes Hyperlipidemia Mother Hypertension Psychiatric illness Brother Hypertension Denies family history of Clotting disorder Dementia Chronic kidney disease (CKD) Suicide Anesthesia complication Bleeding disorder Family history of premature coronary artery disease Lung disease Stroke Social History Smoking and tobacco status: never smoked Second hand smoke exposure: Yes Alcohol intake: current Alcohol intake frequency: holidays/special occasions only Alcohol type: other Lives independently: Yes Household members: family and children Marital status: Single Current occupational status: employed Current occupation: [employer] Current occupational exposures/hazards: No History of recent travel: No Current gender identity: Female Physical Exam Const: COMMON NORMALS: no acute distress GENERAL APPEARANCE: cooperative and comfortable ORIENTATION/CONSCIOUSNESS: Yes awake, Yes oriented to person, Yes oriented to place and Yes oriented to time HENMT: COMMON NORMALS: normocephalic, atraumatic and hearing grossly normal bilaterally HEAD & SCALP: normocephalic and atraumatic Neck/C-Spine: COMMON NORMALS: no JVD Resp: COMMON NORMALS: normal respiratory effort, No retractions, No use of accessory muscles and clear to auscultation bilaterally AUSCULTATION: clear to auscultation bilaterally Cardio: COMMON NORMALS: no JVD, regular rate, regular rhythm and No murmurs present (Cardio) RATE: regular rate RHYTHM: regular rhythm GI: COMMON NORMALS: Soft to palpation and No hepatosplenomegaly present AUSCULTATION: Yes normoactive bowel sounds PALPATION: Yes Soft to palpation, No Tenderness to palpation present (GI), No Guarding due to palpation present (GI) and Yes No hepatosplenomegaly present Extremity: COMMON NORMALS: normal to inspection, capillary refill normal, no clubbing, cyanosis or edema, no calf tenderness and no pedal edema Neuro: SENSORIUM/ORIENTATION: Yes oriented to person, Yes oriented to place and Yes oriented to time Skin: COMMON NORMALS: no rashes or lesions noted GENERAL SKIN EXAM: no rashes or lesions noted Course Vital Signs: Vital signs: Vital Signs Temperature 98.5 F 05/03/20 15:53 Pulse Rate 91 05/03/20 19:49 Respiratory Rate 23 H 05/03/20 18:15 Blood Pressure 139/93 05/03/20 19:49 Pulse Oximetry 98 05/03/20 18:15 MDM - Weakness MDM Narrative: Medical decision making narrative: Care turned over to Dr. Stephens at change of shift. See his note for final diagnosis and disposition Lab Data: Labs: Lab Results 05/03/20 05/03/20 05/03/20 Range/Units 16:50 16:50 16:50 WBC 9.1 (4.0-10.0) 10^3/ uL RBC 4.87 (4.1-5.3) 10^6/u L Hgb 14.0 (11.5-15.3) g/dL Hct 42.3 (37.0-47.0) % MCV 86.9 (81-99) fL MCH 28.7 (28.0-34.0) pg MCHC 33.1 (30.0-36.0) g/dL RDW 13.3 (12.1-15.1) % Plt Count 282 (130-400) 10^3/c mm MPV 10.2 (7.4-10.4) fL Neut % (Auto) 72.7 % Lymph % (Auto) 14.7 % [place] % (Auto) 9.8 % Eos % (Auto) 1.8 % Baso % (Auto) 0.7 % Neut # (Auto) 6.60 (1.8-7.7) 10^3/u L Lymph # (Auto) 1.3 (0.8-4.8) 10^3/u L [place] # (Auto) 0.9 (0.2-0.9) 10^3/u L Eos # (Auto) 0.2 (0.0-0.8) 10^3/u L Baso # (Auto) 0.1 (0.0-0.1) 10^3/u L Nucleated RBC % (a uto) 0 % Nucleated RBCs # 0.0 /100WBC Sodium 142 (136-145) mmol/L Potassium 3.8 (3.5-5.1) mmol/L Chloride 105 (98-107) mmol/L Carbon Dioxide 30 H (22-29) mmol/L Anion Gap 10.8 (5-19) BUN 7 (6-20) mg/dL Creatinine 0.7 (0.5-0.9) mg/dL GFR Calculation 89.3 L (90-130) mL/min Glucose 108 (65-115) mg/dL Calculated Osmolal ity 293 (285-295) mOsm/k g Calcium 9.1 (8.5-10.5) mg/dL Total Bilirubin 0.3 (0.15-1.2) mg/dL AST 23 (0-32) U/L ALT 24 (0-33) U/L Alkaline Phosphata se 110 H (35-105) IU/L Total Protein 7.1 (6.6-8.7) g/dL Albumin 4.1 (3.5-5.2) g/dL Globulin 3.0 (1.3-4.6) g/dL Urine Color Yellow (Yellow) Urine Appearance Clear (CLEAR) Urine pH 7 (5-7) Ur Specific Gravit y 1.010 (1.005-1.030) Urine Protein Neg (Negative) Urine Glucose (UA) Norm (Normal) Urine Ketones Negative (Negative) Urine Blood Neg (Negative) Urine Nitrate Negative (Negative) Urine Bilirubin Neg (Negative) Urine Urobilinogen 4 H (Negative) mg/dL Ur Leukocyte Shari ase Negative (Negative) Discharge Plan Discharge Patient Disposition: Home Clinical Impression: Paresthesia Condition: Stable Prescriptions: New Medrol (Rahul) 4 mg tablets,dose pack See Rx Instructions .ROUTE .COMPLEX Qty: 21 RF: 0 No Action albuterol sulfate 2.5 mg /3 mL (0.083 %) solution for nebulization 2.5 mg INHALATION Q4H PRN (Reason: Shortness Of Breath) RF: 0 budesonide-formoterol [Symbicort] 80-4.5 mcg/actuation HFA aerosol inhaler 2 puff INHALATION Q12H 30 Days Qty: 10.2 RF: 2 azithromycin 200 mg/5 mL suspension for reconstitution See Rx Instructions PO .COMPLEX Qty: 38 RF: 0 aspirin [Aspir-81] 81 mg Tablet,Delayed Release (Dr/Ec) 81 mg PO DAILY@07 RF: 0 nitroglycerin [Nitrostat] 0.4 mg Tablet, Sublingual 0.4 mg SUBLINGUAL Q5M PRN (Reason: Chest Pain) RF: 0 ibuprofen 800 mg tablet 800 mg PO Q8H PRN (Reason: pain) Qty: 30 RF: 0 fluoxetine 20 mg/5 mL (4 mg/mL) solution 60 mg PO DAILY@07 RF: 0 Spiriva with HandiHaler 18 mcg capsule, w/inhalation device 1 cap INHALATION DAILY@07 RF: 0 albuterol sulfate 90 mcg/actuation aerosol powdr breath activated 2 inh INHALATION Q6H PRN (Reason: shortness of breath or wheezing) Qty: 1 RF: 0 Discharge Orders: Discharge ED (Routine); Ordered 05/03/20 Ordered By: Greg Stephens Referrals: Lisa Floers MANAGING COGNITIVE ENGINEER [Primary Care Provider] - 1-3 days Discharge Diet: Advance as tolerated Discharge Activity: Increase activity as tolerated Patient Instructions: Paresthesia (ED) Activity Restrictions/Additional Instructions: Return for worsening weakness, or numbness to extremity, mental status changes, worsening headaches, other concerning symptoms. See your doctor in follow-up next week. Medicine as directed. Coding Level of Care Code ED Dexigraph Operator for Toni Ramírez NIH stroke score NIHSS Level Of Consciousness - 1a: 0 Level Of Consciousness Questions - 1b: Both Correct Level Of Consciousness Commands - 1c: Both Correct Best Gaze - 2: Normal Visual Mclean - 3: No Visual Loss Facial Palsy - 4: Normal Motor Arm Right - 5: No Drift Motor Arm Left - 5: No Drift Motor Leg Right - 6: No Drift Motor Leg Left - 6: No Drift Limb Ataxia - 7: Absent Sensory - 8: Normal Best Language - 9: No Aphasia Dysarthia - 10: Normal Extinction And Inattention - 11: 0 Score Total Score: 0 Documented by User: Greg Stephens DO 05/04/20 05:38 HPI - Weakness General: Chief complaint: Weakness Stated complaint: WEAKNESS ON RIGHT SIDE Time Seen by Provider: 05/03/20 15:59 PFSH ED PFSH: Medical History (Updated 05/03/20 @ 22:18 by Greg Stephens DO) CVA (cerebral vascular accident) Depression Major depressive disorder, recurrent, moderate Surgical History H/O laparoscopy H/O: hysterectomy History of cholecystectomy History of tubal ligation Hx of oophorectomy Family History Father CAD (coronary artery disease) Cancer Diabetes Hyperlipidemia Mother Hypertension Psychiatric illness Brother Hypertension Denies family history of Clotting disorder Dementia Chronic kidney disease (CKD) Suicide Anesthesia complication Bleeding disorder Family history of premature coronary artery disease Lung disease Stroke Social History Smoking and tobacco status: never smoked Second hand smoke exposure: Yes Alcohol intake: current Alcohol intake frequency: holidays/special occasions only Alcohol type: other Lives independently: Yes Household members: family and children Marital status: Single Current occupational status: employed Current occupation: [employer] Current occupational exposures/hazards: No History of recent travel: No Current gender identity: Female Course Vital Signs: Vital signs: Vital Signs Temperature 98.5 F 05/03/20 15:53 Pulse Rate 91 05/03/20 19:49 Respiratory Rate 23 H 05/03/20 18:15 Blood Pressure 139/93 05/03/20 19:49 Pulse Oximetry 98 05/03/20 18:15 MDM - Weakness MDM Narrative: Medical decision making narrative: 49-year-old female checked out to me by Dr. Torres at shift change. This lady complains of paresthesias essentially. She has no overt weakness. Her NIH scale is about 1. Her paresthesia has not worsened since she has been in the ER. Head CT was negative. CTA of the head and neck were negative for any stenosis. This could be a radicular problem from her neck. This was explained to her. She does not have diabetes. We will place her on a Medrol Dosepak to see if it improves her neuritis type symptoms. Close outpatient follow-up, she knows to return if worsening or new symptoms. Lab Data: Labs: Lab Results 05/03/20 05/03/20 05/03/20 Range/Units 16:50 16:50 16:50 WBC 9.1 (4.0-10.0) 10^3/ uL RBC 4.87 (4.1-5.3) 10^6/u L Hgb 14.0 (11.5-15.3) g/dL Hct 42.3 (37.0-47.0) % MCV 86.9 (81-99) fL MCH 28.7 (28.0-34.0) pg MCHC 33.1 (30.0-36.0) g/dL RDW 13.3 (12.1-15.1) % Plt Count 282 (130-400) 10^3/c mm MPV 10.2 (7.4-10.4) fL Neut % (Auto) 72.7 % Lymph % (Auto) 14.7 % [place] % (Auto) 9.8 % Eos % (Auto) 1.8 % Baso % (Auto) 0.7 % Neut # (Auto) 6.60 (1.8-7.7) 10^3/u L Lymph # (Auto) 1.3 (0.8-4.8) 10^3/u L [place] # (Auto) 0.9 (0.2-0.9) 10^3/u L Eos # (Auto) 0.2 (0.0-0.8) 10^3/u L Baso # (Auto) 0.1 (0.0-0.1) 10^3/u L Nucleated RBC % (a uto) 0 % Nucleated RBCs # 0.0 /100WBC Sodium 142 (136-145) mmol/L Potassium 3.8 (3.5-5.1) mmol/L Chloride 105 (98-107) mmol/L Carbon Dioxide 30 H (22-29) mmol/L Anion Gap 10.8 (5-19) BUN 7 (6-20) mg/dL Creatinine 0.7 (0.5-0.9) mg/dL GFR Calculation 89.3 L (90-130) mL/min Glucose 108 (65-115) mg/dL Calculated Osmolal ity 293 (285-295) mOsm/k g Calcium 9.1 (8.5-10.5) mg/dL Total Bilirubin 0.3 (0.15-1.2) mg/dL AST 23 (0-32) U/L ALT 24 (0-33) U/L Alkaline Phosphata se 110 H (35-105) IU/L Total Protein 7.1 (6.6-8.7) g/dL Albumin 4.1 (3.5-5.2) g/dL Globulin 3.0 (1.3-4.6) g/dL Urine Color Yellow (Yellow) Urine Appearance Clear (CLEAR) Urine pH 7 (5-7) Ur Specific Gravit y 1.010 (1.005-1.030) Urine Protein Neg (Negative) Urine Glucose (UA) Norm (Normal) Urine Ketones Negative (Negative) Urine Blood Neg (Negative) Urine Nitrate Negative (Negative) Urine Bilirubin Neg (Negative) Urine Urobilinogen 4 H (Negative) mg/dL Ur Leukocyte Shari ase Negative (Negative) Discharge Plan Discharge Patient Disposition: Home Clinical Impression: Paresthesia Condition: Stable Prescriptions: New Medrol (Rahul) 4 mg tablets,dose pack See Rx Instructions .ROUTE .COMPLEX Qty: 21 RF: 0 No Action albuterol sulfate 2.5 mg /3 mL (0.083 %) solution for nebulization 2.5 mg INHALATION Q4H PRN (Reason: Shortness Of Breath) RF: 0 budesonide-formoterol [Symbicort] 80-4.5 mcg/actuation HFA aerosol inhaler 2 puff INHALATION Q12H 30 Days Qty: 10.2 RF: 2 azithromycin 200 mg/5 mL suspension for reconstitution See Rx Instructions PO .COMPLEX Qty: 38 RF: 0 aspirin [Aspir-81] 81 mg Tablet,Delayed Release (Dr/Ec) 81 mg PO DAILY@07 RF: 0 nitroglycerin [Nitrostat] 0.4 mg Tablet, Sublingual 0.4 mg SUBLINGUAL Q5M PRN (Reason: Chest Pain) RF: 0 ibuprofen 800 mg tablet 800 mg PO Q8H PRN (Reason: pain) Qty: 30 RF: 0 fluoxetine 20 mg/5 mL (4 mg/mL) solution 60 mg PO DAILY@07 RF: 0 Spiriva with HandiHaler 18 mcg capsule, w/inhalation device 1 cap INHALATION DAILY@07 RF: 0 albuterol sulfate 90 mcg/actuation aerosol powdr breath activated 2 inh INHALATION Q6H PRN (Reason: shortness of breath or wheezing) Qty: 1 RF: 0 Discharge Orders: Discharge ED (Routine); Ordered 05/03/20 Ordered By: Greg Stephens Referrals: Lisa Flores, MANAGING COGNITIVE ENGINEER [Primary Care Provider] - 1-3 days Discharge Diet: Advance as tolerated Discharge Activity: Increase activity as tolerated Patient Instructions: Paresthesia (ED) Activity Restrictions/Additional Instructions: Return for worsening weakness, or numbness to extremity, mental status changes, worsening headaches, other concerning symptoms. See your doctor in follow-up next week. Medicine as directed. Coding Level of Care Code ED Dexigraph Operator for Toni Ramírez
--- NOTE | 2020-05-03 17:52 | CTR_ITS ---
PROCEDURE INFORMATION: Exam: CT Angiography Head With Contrast Exam date and time: 05/03/2020 6:18 PM Age: 49 years old Clinical indication: Patient HX: Right sided weakness. History of prior CVA. ; Additional info: R leg numbness TECHNIQUE: Imaging protocol: Computed tomography angiography of the head with intravenous contrast. 3D rendering (Not supervised by radiologist): MIP and/or 3D reconstructed images were created by the technologist. Radiation optimization: All CT scans at this facility use at least one of these dose optimization techniques: automated exposure control; mA and/or kV adjustment per patient size (includes targeted exams where dose is matched to clinical indication); or iterative reconstruction. Contrast material: OMNI 350; Contrast volume: 95 ml; Contrast route: INTRAVENOUS (IV); COMPARISON: CT angio headneck* [id number] 11/15/2019 9:06 PM RADIATION DOSE METRICS: Total DLP (mGy-cm): 2293.21 FINDINGS: ANTERIOR CIRCULATION: Right internal carotid artery: Unremarkable. Intracranial segment is patent with no significant stenosis. No aneurysm. Right middle cerebral artery: Unremarkable. No occlusion or significant stenosis. No aneurysm. Right anterior cerebral artery: Unremarkable. No occlusion or significant stenosis. No aneurysm. Left internal carotid artery: Unremarkable. Intracranial segment is patent with no significant stenosis. No aneurysm. Left middle cerebral artery: Unremarkable. No occlusion or significant stenosis. No aneurysm. Left anterior cerebral artery: Unremarkable. No occlusion or significant stenosis. No aneurysm. POSTERIOR CIRCULATION: Right vertebral artery: Unremarkable. No occlusion or significant stenosis. No aneurysm. Left vertebral artery: Unremarkable. No occlusion or significant stenosis. No aneurysm. Basilar artery: Unremarkable. No occlusion or significant stenosis. No aneurysm. Right posterior cerebral artery: Unremarkable. No occlusion or significant stenosis. No aneurysm. Left posterior cerebral artery: Unremarkable. No occlusion or significant stenosis. No aneurysm. IMPRESSION: Patent intracranial arteries. PROCEDURE INFORMATION: Exam: CT Angiography Neck With Contrast Exam date and time: 05/03/2020 6:18 PM Age: 49 years old Clinical indication: Patient HX: Right sided weakness. History of prior CVA. ; Additional info: R leg numbness TECHNIQUE: Imaging protocol: Computed tomography angiography of the neck with intravenous contrast. 3D rendering (Not supervised by radiologist): MIP and/or 3D reconstructed images were created by the technologist. Radiation optimization: All CT scans at this facility use at least one of these dose optimization techniques: automated exposure control; mA and/or kV adjustment per patient size (includes targeted exams where dose is matched to clinical indication); or iterative reconstruction. Contrast material: OMNI 350; Contrast volume: 95 ml; Contrast route: INTRAVENOUS (IV); COMPARISON: CT angio headne* [id number] 11/15/2019 9:06 PM RADIATION DOSE METRICS: Total DLP (mGy-cm): 2293.21 FINDINGS: Right common carotid artery: No stenosis. No dissection or occlusion. Right internal carotid artery: No stenosis of the extracranial segment. No dissection or occlusion. Right external carotid artery: No occlusion or stenosis of the origin. Right vertebral artery: No stenosis. No dissection or occlusion. Left common carotid artery: No stenosis. No dissection or occlusion. Left internal carotid artery: No stenosis of the extracranial segment. No dissection or occlusion. Left external carotid artery: No occlusion or stenosis of the origin. Left vertebral artery: No stenosis. No dissection or occlusion. Bones/joints: No acute fracture. Soft tissues: Normal. No significant soft tissue swelling. [facility] [id number] IMPRESSION: Patent neck carotid and vertebral arteries. Radiation Dose CTDIVOL = (mGy): DLP = 2293.21~2293.21 (mGy-cm)
[2020-05-03 18:15] VITALS: BP 140/96; PULSE 99; RESP 23; O2SAT 98
[2020-05-03 18:24] VITALS: PULSE 102
[2020-05-03 19:49] VITALS: BP 139/93; BP 149/97; BP 152/104; PULSE 106; PULSE 112; PULSE 91
--- NOTE | 2020-05-03 20:21 | PC.NURSE ---
20g IV inserted fro cta sudies. Pt states IV inserted by EMS was causing discomfort. IV removed without difficulty
[2020-05-03] MEDS: iohexol 350 mg/mL 100 mL Btl IV (20:35)
== END 2020-05-03 22:31 | disposition home or self-care (01) ==
PROVIDERS: Family Medicine; Emergency Provider Emergency Medicine; PCP Nurse Practitioner
DX: R20.2 Paresthesia of skin (principal); Z79.82 Long term (current) use of aspirin; Z86.73 Personal history of transient ischemic attack (TIA), and cerebral infarction without residual deficits; Z77.22 Contact with and (suspected) exposure to environmental tobacco smoke (acute) (chronic)
CPT/HCPCS: 12345; 70450; 70496; 70498; 80053; 81003; 85025; 93005; 96360; 99283; J7040; Q9967

== ENCOUNTER → 2020-05-26 17:52 | Outpatient (BNVA) | payer MEDICAID, SELFPAY | PROVIDERS: PCP Nurse Practitioner; Visit Provider Nurse Practitioner Family | DX: Z20.828 Contact with and (suspected) exposure to other viral communicable diseases (principal); J40 Bronchitis, not specified as acute or chronic | CPT/HCPCS: 87635 ==

== ENCOUNTER → 2020-06-04 07:52 | Outpatient (BNVA) | payer MEDICAID, SELFPAY | PROVIDERS: PCP Nurse Practitioner; Visit Provider Nurse Practitioner Psychiatric/Mental Health | DX: F33.1 Major depressive disorder, recurrent, moderate (principal) | CPT/HCPCS: 99212 ==

== ENCOUNTER → 2020-06-21 08:44 | Outpatient (BNVA) | payer MEDICAID, SELFPAY | PROVIDERS: PCP Nurse Practitioner; Visit Provider Social Worker Clinical | DX: F33.1 Major depressive disorder, recurrent, moderate (principal) | CPT/HCPCS: 90834 ==

== ENCOUNTER → 2020-07-22 08:01 | Outpatient (BNVA) | payer MEDICAID, SELFPAY | PROVIDERS: PCP Nurse Practitioner; Visit Provider Social Worker Clinical | DX: F33.1 Major depressive disorder, recurrent, moderate (principal) | CPT/HCPCS: 90834 ==

== ENCOUNTER → 2020-07-29 08:50 | Outpatient (BNVA) | payer MEDICAID, SELFPAY | PROVIDERS: PCP Nurse Practitioner; Visit Provider Nurse Practitioner Psychiatric/Mental Health | DX: F33.1 Major depressive disorder, recurrent, moderate (principal) | CPT/HCPCS: 99213 ==

== ENCOUNTER → 2020-08-02 08:05 | Outpatient (BNVA) | payer MEDICAID, SELFPAY | PROVIDERS: PCP Nurse Practitioner; Visit Provider Social Worker Clinical | DX: F33.1 Major depressive disorder, recurrent, moderate (principal) | CPT/HCPCS: 90834 ==

== ENCOUNTER 2020-08-05 21:32 | Emergency (ER) | payer MEDICAID, SELFPAY ==
--- NOTE | 2020-08-05 21:32 | CTR_ITS ---
PROCEDURE INFORMATION: Exam: CT Head Without Contrast Exam date and time: 08/05/2020 9:36 PM Age: 49 years old Clinical indication: Weakness, extremity and weakness, facial; Left; Additional info: Left sided weakness TECHNIQUE: Imaging protocol: Computed tomography of the head without contrast. Radiation optimization: All CT scans at this facility use at least one of these dose optimization techniques: automated exposure control; mA and/or kV adjustment per patient size (includes targeted exams where dose is matched to clinical indication); or iterative reconstruction. Other technique: STROKE PROTOCOL was implemented. COMPARISON: CT head wo con* [id number] 05/03/2020 5:20 PM RADIATION DOSE METRICS: Total DLP (mGy-cm): 731.54 FINDINGS: Brain: Normal. No hemorrhage or CT evidence of acute infarction is seen. No mass effect. Cerebral ventricles: No ventriculomegaly. Bones/joints: Unremarkable. No acute fracture. Paranasal sinuses: Visualized sinuses are unremarkable. No fluid levels. Mastoid air cells: Visualized mastoid air cells are well aerated. Soft tissues: Unremarkable. CT/CT head wo con* [id number] IMPRESSION: No acute intracranial abnormality. ASSESSMENT: ASPECTS ([place] Stroke Program Early CT Score) is 10. Radiation Dose CTDIVOL = (mGy): DLP = 731.54 (mGy-cm)
[2020-08-05 21:33] VITALS: BP 141/94; PULSE 98; RESP 16; TEMP 36.6; O2SAT 96; BMI 37.3
--- NOTE | 2020-08-05 21:34 | XRR_ITS ---
PROCEDURE INFORMATION: Exam: XR Chest Exam date and time: 08/05/2020 9:42 PM Age: 49 years old Clinical indication: Other: Left side facial numbness; Additional info: CVA TECHNIQUE: Imaging protocol: XR of the chest Views: 1 view. COMPARISON: CR XR chest 2V* [id number] 12/19/2019 9:28 PM FINDINGS: Lungs: Unremarkable. No consolidation. Pleural spaces: Unremarkable. No pleural effusion. No pneumothorax. Heart/Mediastinum: Unremarkable. No cardiomegaly. Bones/joints: Unremarkable. XR/XR chest 1V portable [id number] IMPRESSION: No acute findings.
--- NOTE | 2020-08-05 21:34 | ECG_ITS ---
[facility] Test Date: 2020-08-05 Pat Name: Gale Veloz Department: Room: Gender: Female Bi Tri Operator: : 1970 Requested By: Darrell Anand Order Number: [id number] Sohail MD: Ace Nobles M.D. Measurements Intervals [place] Rate: 97 P: 55 NC: 167 QRS: 41 QRSD: 79 T: 63 QT: 345 QTc: 439 Interpretive Statements SINUS RHYTHM LOW QRS VOLTAGE IN PRECORDIAL LEADS [QRS DEFLECTION < 1.0 mV IN CHEST LEADS] ST DEVIATION AND MODERATE T-WAVE ABNORMALITY, CONSIDER ANTERIOR ISCHEMIA [-0.1+ mV T WAVE IN V3/V4] Compared to ECG 05/03/2020 17:40:28 Low QRS voltage now present Possible ischemia now present T-wave abnormality still present Electronically Signed On 08-06-2020 23:49:43 ALTITUDE CHAMBER TECHNICIAN by Ace Nobles M.D. [id number]
--- NOTE | 2020-08-05 21:41 | ED_ITS ---
HPI - Neuro Symptoms/Deficit General: Chief Complaint: Neuro Symptoms/Deficit Stated Complaint: Left Sided Facial Numbness/LKW 193 Time Seen by Provider: 08/05/20 21:32 Source: patient and EMS Mode of arrival: EMS Limitations: no limitations History of Present Illness: HPI Narrative: 49-year-old female who states she started having some numbness to the left side of her face that started at 730. She states she is having some facial pain as well. Patient denies any weakness. She has been able to ambulate and she states she has had no difficulty speaking either. Patient is well-appearing here. She denies any worsening or improving factors. Associated symptoms: Deny chest pain, headache(s), nausea or vomiting Review of Systems Const: Denies: fever(s), chills, body aches or change in appetite Eyes: Denies: blurry vision or eye discomfort ENMT: Denies: throat pain or dental pain Card: Denies: chest pain Resp: Denies: dyspnea GI: Denies: abdominal pain, nausea, vomiting or diarrhea : Denies: dysuria Musc: Denies: neck pain or back pain Skin/Breast: Denies: rash Neuro: Denies: headache(s) Psych: Denies: depression Sushil/Lymph: Denies: easy bruising All/Imm: Denies: urticaria PFSH ED PFSH: Medical History (Updated 08/05/20 @ 22:43 by Darrell Anand MD) CVA (cerebral vascular accident) Depression Major depressive disorder, recurrent, moderate Surgical History H/O laparoscopy H/O: hysterectomy History of cholecystectomy History of tubal ligation Hx of oophorectomy Family History Father CAD (coronary artery disease) Cancer Diabetes Hyperlipidemia Mother Hypertension Psychiatric illness Brother Hypertension Denies family history of Clotting disorder Dementia Chronic kidney disease (CKD) Suicide Anesthesia complication Bleeding disorder Family history of premature coronary artery disease Lung disease Stroke Social History Smoking and tobacco status: never smoked Second hand smoke exposure: Yes Alcohol intake: current Alcohol intake frequency: holidays/special occasions only Alcohol type: other Lives independently: Yes Household members: family and children Marital status: Single Current occupational status: employed Current occupation: [employer] Current occupational exposures/hazards: No History of recent travel: No Current gender identity: Female NIH stroke score NIHSS: Level Of Consciousness - 1a: 0 Level Of Consciousness Questions - 1b: Both Correct Level Of Consciousness Commands - 1c: Both Correct Best Gaze - 2: Normal Visual Mclean - 3: No Visual Loss Facial Palsy - 4: Normal Motor Arm Right - 5: No Drift Motor Arm Left - 5: No Drift Motor Leg Right - 6: No Drift Motor Leg Left - 6: No Drift Limb Ataxia - 7: Absent Sensory - 8: Mild To Moderate Loss Best Language - 9: No Aphasia Dysarthia - 10: Normal Extinction And Inattention - 11: 0 Score: Total Score: 1 Physical Exam Const: COMMON NORMALS: no acute distress, patient oriented x3, healthy appearing and alert ORIENTATION/CONSCIOUSNESS: Yes oriented to person, Yes oriented to place and Yes oriented to time HENMT: COMMON NORMALS: normocephalic and atraumatic HEAD & SCALP: normocephalic and atraumatic Eye: COMMON NORMALS: Equal, round and reactive pupils present and EOMs intact bilaterally PUPIL: Yes Equal, round and reactive pupils present Neck/C-Spine: COMMON NORMALS: full ROM and supple Chest: COMMONS NORMALS: normal inspection of the chest and normal palpation of entire chest wall Resp: COMMON NORMALS: normal respiratory effort, No retractions, No use of accessory muscles and clear to auscultation bilaterally AUSCULTATION: clear to auscultation bilaterally Cardio: COMMON NORMALS: regular rate, regular rhythm and No murmurs present (Cardio) RATE: regular rate RHYTHM: regular rhythm GI: COMMON NORMALS: Normal to inspection, nondistended, normoactive bowel sounds present, Soft to palpation, non-tender and no masses PALPATION: Yes Soft to palpation Extremity: COMMON NORMALS: normal to inspection and full ROM Neuro: COMMON NORMALS: patient oriented x3, moves all extremities and no focal motor deficits SENSORIUM/ORIENTATION: Yes alert, Yes oriented to person, Yes oriented to place and Yes oriented to time CRANIAL NERVES: Yes CN normal except as noted SPEECH: speech normal GAIT: Yes Normal gait present Psych: COMMON NORMALS: mental status grossly normal, Normal thought process present and cooperative THOUGHT PROCESS: Normal thought process present Skin: COMMON NORMALS: no rashes or lesions noted and no wounds GENERAL SKIN EXAM: no rashes or lesions noted Course Vital Signs: Vital signs: Vital Signs Temperature 97.9 F 08/05/20 21:33 Pulse Rate 104 H 08/05/20 22:41 Respiratory Rate 18 08/05/20 22:41 Blood Pressure 126/76 08/05/20 22:41 Pulse Oximetry 97 08/05/20 22:41 MDM - Neuro Symptoms/Deficit MDM Narrative: Medical decision making narrative: Gale presents with paresthesias to her face. This is since resolved and she feels much improved. She has no signs of CVA. She had some facial pain to which she does not go with a stroke. She is not a TPA candidate and she is requesting discharge at this time. I feel she is stable for discharge she does take a baby aspirin a day and is to continue. She is to follow-up with PCP in 2 to 4 days return if worsening. Lab Data: Labs: Lab Results 08/05/20 08/05/20 08/05/20 Range/Units 21:54 21:54 21:54 WBC 9.5 (4.0-10.0) 10^3/ uL RBC 4.93 (4.1-5.3) 10^6/u L Hgb 14.1 (11.5-15.3) g/dL Hct 44.3 (37.0-47.0) % MCV 89.9 (81-99) fL MCH 28.6 (28.0-34.0) pg MCHC 31.8 (30.0-36.0) g/dL RDW 13.4 (12.1-15.1) % Plt Count 278 (130-400) 10^3/c mm MPV 10.2 (7.4-10.4) fL Neut % (Auto) 62.2 % Lymph % (Auto) 25.7 % [place] % (Auto) 8.9 % Eos % (Auto) 2.1 % Baso % (Auto) 0.7 % Neut # (Auto) 5.87 (1.8-7.7) 10^3/u L Lymph # (Auto) 2.4 (0.8-4.8) 10^3/u L [place] # (Auto) 0.8 (0.2-0.9) 10^3/u L Eos # (Auto) 0.2 (0.0-0.8) 10^3/u L Baso # (Auto) 0.1 (0.0-0.1) 10^3/u L Nucleated RBC % (a uto) 0 % Nucleated RBCs # 0.0 /100WBC PT 13.20 (12.1-14.9) SECO NDS INR 0.97 (0.8-1.2) APTT 25.7 (23.9-36.7) SECO NDS Sodium 140 (136-145) mmol/L Potassium 3.6 (3.5-5.1) mmol/L Chloride 102 (98-107) mmol/L Carbon Dioxide 28 (22-29) mmol/L Anion Gap 13.6 (5-19) BUN 6 (6-20) mg/dL Creatinine 0.7 (0.5-0.9) mg/dL GFR Calculation 89.3 L (90-130) mL/min Glucose 109 (65-115) mg/dL POC Glucose (70-110) mg/dL Calculated Osmolal ity 288 (285-295) mOsm/k g Calcium 9.0 (8.5-10.5) mg/dL Total Bilirubin 0.3 (0.15-1.2) mg/dL AST 24 (0-32) U/L ALT 26 (0-33) U/L Alkaline Phosphata se 115 H (35-105) IU/L Total Protein 7.8 (6.6-8.7) g/dL Albumin 3.9 (3.5-5.2) g/dL Globulin 3.9 (1.3-4.6) g/dL Urine Color (Yellow) Urine Appearance (CLEAR) Urine pH (5-7) Ur Specific Gravit y (1.005-1.030) Urine Protein (Negative) Urine Glucose (UA) (Normal) Urine Ketones (Negative) Urine Blood (Negative) Urine Nitrate (Negative) Urine Bilirubin (Negative) Urine Urobilinogen (Negative) mg/dL Ur Leukocyte Shari ase (Negative) Urine Opiates Scre en (Negative) ng/mL Ur Barbiturates Sc reen (Negative) ng/mL Ur Phencyclidine S crn (Negative) ng/mL Ur Amphetamines Sc reen (Negative) ng/mL U Benzodiazepines Scrn (Negative) ng/mL Urine Cocaine Scre en (Negative) ng/mL U Marijuana (THC) Screen (Negative) ng/mL 08/05/20 08/05/20 08/05/20 Range/Units 22:00 22:00 22:01 WBC (4.0-10.0) 10^3/ uL RBC (4.1-5.3) 10^6/u L Hgb (11.5-15.3) g/dL Hct (37.0-47.0) % MCV (81-99) fL MCH (28.0-34.0) pg MCHC (30.0-36.0) g/dL RDW (12.1-15.1) % Plt Count (130-400) 10^3/c mm MPV (7.4-10.4) fL Neut % (Auto) % Lymph % (Auto) % [place] % (Auto) % Eos % (Auto) % Baso % (Auto) % Neut # (Auto) (1.8-7.7) 10^3/u L Lymph # (Auto) (0.8-4.8) 10^3/u L [place] # (Auto) (0.2-0.9) 10^3/u L Eos # (Auto) (0.0-0.8) 10^3/u L Baso # (Auto) (0.0-0.1) 10^3/u L Nucleated RBC % (a uto) % Nucleated RBCs # /100WBC PT (12.1-14.9) SECO NDS INR (0.8-1.2) APTT (23.9-36.7) SECO NDS Sodium (136-145) mmol/L Potassium (3.5-5.1) mmol/L Chloride (98-107) mmol/L Carbon Dioxide (22-29) mmol/L Anion Gap (5-19) BUN (6-20) mg/dL Creatinine (0.5-0.9) mg/dL GFR Calculation (90-130) mL/min Glucose (65-115) mg/dL POC Glucose 109 (70-110) mg/dL Calculated Osmolal ity (285-295) mOsm/k g Calcium (8.5-10.5) mg/dL Total Bilirubin (0.15-1.2) mg/dL AST (0-32) U/L ALT (0-33) U/L Alkaline Phosphata se (35-105) IU/L Total Protein (6.6-8.7) g/dL Albumin (3.5-5.2) g/dL Globulin (1.3-4.6) g/dL Urine Color Yellow (Yellow) Urine Appearance Clear (CLEAR) Urine pH 6.5 (5-7) Ur Specific Gravit y 1.020 (1.005-1.030) Urine Protein Neg (Negative) Urine Glucose (UA) Norm (Normal) Urine Ketones Negative (Negative) Urine Blood Neg (Negative) Urine Nitrate Negative (Negative) Urine Bilirubin 2+ H (Negative) Urine Urobilinogen Norm (Negative) mg/dL Ur Leukocyte Shari ase Negative (Negative) Urine Opiates Scre en Negative (Negative) ng/mL Ur Barbiturates Sc reen Negative (Negative) ng/mL Ur Phencyclidine S crn Negative (Negative) ng/mL Ur Amphetamines Sc reen Negative (Negative) ng/mL U Benzodiazepines Scrn Negative (Negative) ng/mL Urine Cocaine Scre en Negative (Negative) ng/mL U Marijuana (THC) Screen Negative (Negative) ng/mL Imaging Data^: CT Head: Attestation: I personally reviewed and interpreted this imaging study as follows: Radiologist's impression: [address] [address] [address] Scan Report Signed Patient: Gale Veloz Unit #: [id number] : 1970 Age/Sex: 49 / F ADM Date: 08/05/20 Loc: ER Room/Bed: Attending Dr: Ordering Provider/Ordering MD: Darrell Anand MD Date of Service: 08/05/20 Procedure(s): CT head wo con* [id number] Accession Number(s): [id number] Report Number: [id number] PROCEDURE INFORMATION: Exam: CT Head Without Contrast Exam date and time: 08/05/2020 9:36 PM Age: 49 years old Clinical indication: Weakness, extremity and weakness, facial; Left; Additional info: Left sided weakness TECHNIQUE: Imaging protocol: Computed tomography of the head without contrast. Radiation optimization: All CT scans at this facility use at least one of these dose optimization techniques: automated exposure control; mA and/or kV adjustment per patient size (includes targeted exams where dose is matched to clinical indication); or iterative reconstruction. Other technique: STROKE PROTOCOL was implemented. COMPARISON: CT head wo con* [id number] 05/03/2020 5:20 PM RADIATION DOSE METRICS: Total DLP (mGy-cm): 731.54 FINDINGS: Brain: Normal. No hemorrhage or CT evidence of acute infarction is seen. No mass effect. Cerebral ventricles: No ventriculomegaly. Bones/joints: Unremarkable. No acute fracture. Paranasal sinuses: Visualized sinuses are unremarkable. No fluid levels. Mastoid air cells: Visualized mastoid air cells are well aerated. Soft tissues: Unremarkable. CT/CT head wo con* [id number] IMPRESSION: No acute intracranial abnormality. ASSESSMENT: CXR: Attestation: I personally reviewed and interpreted this imaging study as follows: Radiologist's impression: no acute abnormality EKG Data^: EKG 1: Attestation: I personally reviewed and interpreted this EKG as follows: EKG interpretation date: 08/05/20 EKG interpretation time: 21:49 Interpretation: nsr hr [address] or t wave abnormalities qrs 79 qtc 399 Discharge Plan Discharge Patient Disposition: Home Clinical Impression: Paresthesia Condition: Stable Prescriptions: No Action albuterol sulfate 2.5 mg /3 mL (0.083 %) solution for nebulization 2.5 mg INHALATION Q4H PRN (Reason: Shortness Of Breath) RF: 0 budesonide-formoterol [Symbicort] 80-4.5 mcg/actuation HFA aerosol inhaler 2 puff INHALATION Q12H 30 Days Qty: 10.2 RF: 2 fluticasone propionate [Flonase Allergy Relief] 50 mcg/actuation spray,suspension 2 spray intranasal DAILY Qty: 15.8 RF: 0 fluoxetine 20 mg/5 mL (4 mg/mL) solution 60 mg PO DAILY@07 Qty: 450 RF: 2 meloxicam 15 mg tablet 15 mg PO DAILY Qty: 30 RF: 2 aspirin [Aspir-81] 81 mg Tablet,Delayed Release (Dr/Ec) 81 mg PO DAILY@07 RF: 0 nitroglycerin [Nitrostat] 0.4 mg Tablet, Sublingual 0.4 mg SUBLINGUAL Q5M PRN (Reason: Chest Pain) RF: 0 Spiriva with HandiHaler 18 mcg capsule, w/inhalation device 1 cap INHALATION DAILY@07 RF: 0 albuterol sulfate 90 mcg/actuation aerosol powdr breath activated 2 inh INHALATION Q6H PRN (Reason: shortness of breath or wheezing) Qty: 1 RF: 0 tizanidine 4 mg Tablet 4 mg PO TID PRN (Reason: Spasms) RF: 0 Discharge Orders: Discharge ED (Routine); Ordered 08/05/20 Ordered By: Darrell Anand Referrals: Lisa Flores FNP [Primary Care Provider] - 1-3 days Discharge Diet: Advance as tolerated Discharge Activity: Resume usual activity Patient Instructions: Paresthesia (ED) Coding Level of Care Code 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
[2020-08-05 21:56] LABS: Basophils # 0.1 10^3/uL (0.0-0.1); Basophils % 0.7 %; Eosinophils # 0.2 10^3/uL (0.0-0.8); Eosinophils % 2.1 %; Hematocrit 44.3 % (37.0-47.0); Hemoglobin 14.1 g/dL (11.5-15.3); Lymphocytes # 2.4 10^3/uL (0.8-4.8); Lymphocytes % 25.7 %; Mean Corpuscular HGB Conc 31.8 g/dL (30.0-36.0); Mean Corpuscular Hemoglobin 28.6 pg (28.0-34.0); Mean Corpuscular Volume 89.9 fL (81-99); Mean Platelet Volume 10.2 fL (7.4-10.4); Monocytes # 0.8 10^3/uL (0.2-0.9); Monocytes % 8.9 %; Neutrophils # 5.87 10^3/uL (1.8-7.7); Neutrophils % 62.2 %; Nucleated Red Blood Cells % 0 %; Platelet Count 278 10^3/cmm (130-400); Red Blood Count 4.93 10^6/uL (4.1-5.3); Red Cell Distribution Width 13.4 % (12.1-15.1); White Blood Count 9.5 10^3/uL (4.0-10.0)
[2020-08-05 22:05] LABS: Glucose Point of Care 109 mg/dL (70-110)
[2020-08-05 22:06] LABS: Add Urine Microscopic? NO
[2020-08-05 22:07] LABS: INR 0.97 (0.8-1.2)
[2020-08-05 22:08] LABS: Partial Thromboplastin Time 25.7 SECONDS (23.9-36.7)
[2020-08-05 22:14] LABS: Bilirubin Urine 2+ (Negative); Blood Urine Neg (Negative); Glucose Urine UA Norm (Normal); Ketones Urine Negative (Negative); Leukocyte Esterase Urine Negative (Negative); Nitrate Urine Negative (Negative); Protein Urine Neg (Negative); Urine Appearance Clear (CLEAR); Urine Color Yellow (Yellow); Urobilinogen Urine Norm (Negative); pH Urine 6.5 (5-7)
[2020-08-05 22:17] LABS: Alanine Aminotransferase 26 U/L (0-33); Albumin Level 3.9 g/dL (3.5-5.2); Alkaline Phosphatase 115 IU/L (35-105); Aspartate Amino Transferase 24 U/L (0-32); Blood Urea Nitrogen 6 mg/dL (6-20); Carbon Dioxide 28 mmol/L (22-29); Globulin 3.9 g/dL (1.3-4.6); Glomerular Filtration Rate 89.3 mL/min (90-130); Glucose 109 mg/dL (65-115); Total Bilirubin 0.3 mg/dL (0.15-1.2); Total Protein 7.8 g/dL (6.6-8.7)
[2020-08-05 22:19] LABS: Amphetamines Screen Urine Negative (Negative); Barbiturates Screen Urine Negative (Negative); Benzodiazepines Screen Urine Negative (Negative); Cocaine Screen Urine Negative (Negative); Opiate Screen Urine Negative (Negative); PCP Screen Urine Negative (Negative); THC Screen Urine Negative (Negative)
[2020-08-05 22:28] LABS: Osmolality Calculated 288 mOsm/kg (285-295)
[2020-08-05 22:29] LABS: Anion Gap 13.6 (5-19); Chloride 102 mmol/L (98-107); Potassium 3.6 mmol/L (3.5-5.1); Sodium 140 mmol/L (136-145)
[2020-08-05 22:41] VITALS: BP 126/76; PULSE 104; RESP 18; O2SAT 97
[2020-08-05] MEDS: aspirin 81 mg Chew Tablet PO (22:51)
[2020-08-05 22:55] VITALS: BP 126/76; PULSE 105; RESP 18; O2SAT 96
== END 2020-08-05 22:56 | disposition home or self-care (01) ==
PROVIDERS: Emergency Provider Emergency Medicine; PCP Nurse Practitioner
DX: R20.2 Paresthesia of skin (principal); Z79.82 Long term (current) use of aspirin; Z86.73 Personal history of transient ischemic attack (TIA), and cerebral infarction without residual deficits; Z77.22 Contact with and (suspected) exposure to environmental tobacco smoke (acute) (chronic)
CPT/HCPCS: 36416; 70450; 71045; 80053; 80306; 81003; 82962; 85025; 85610; 85730; 93005; 99284

== ENCOUNTER → 2020-08-12 08:08 | Outpatient (BNVA) | payer MEDICAID, SELFPAY | PROVIDERS: PCP Nurse Practitioner; Visit Provider Social Worker Clinical | DX: F33.1 Major depressive disorder, recurrent, moderate (principal) | CPT/HCPCS: 90834 ==

== ENCOUNTER → 2020-08-26 11:10 | Outpatient (BNVA) | payer MEDICAID, SELFPAY | PROVIDERS: PCP Nurse Practitioner; Visit Provider Social Worker Clinical | DX: F33.1 Major depressive disorder, recurrent, moderate (principal) | CPT/HCPCS: 90834 ==

== ENCOUNTER 2020-08-27 10:32 | Outpatient (CLI) | payer MEDICAID, SELFPAY ==
[2020-08-27] MEDS: gadobenate dimeglumine 20 mL vial IV (11:45)
--- NOTE | 2020-08-27 11:45 | MR_ITS ---
WS: [id number] MRI BRAIN WITH AND WITHOUT CONTRAST HISTORY: R20.2 - Paresthesia of skin COMPARISON: 05/10/[address] head 08/05/2020 TECHNIQUE: Multiplanar imaging performed through the brain with MultiHance 20 ml's IV. No acute infarcts are seen. Ruffin-white matter differentiation is well preserved. . Minimal chronic mi crovascular ischemic changes. No progression. No susceptibility artifacts or prior lacunar infarcts. Ventricles and extra-axial spaces are normal. Clivus and pituitary gland are normal. Visualized posterior fossa and brainstem are also normal. Postcontrast images are negative for masses or vascular malformations. Dural venous sinuses are normal. Paranasal sinuses: Well aerated with no significant disease. Mastoid air cells: Normal. Calvarium and scalp: Normal. MR/MR head wo/w con [id number] IMPRESSION: 1. No evidence for an acute infarct or enhancing mass. 2. Minimal chronic microvascular ischemic changes with no change since 2013. 3. No paranasal sinus disease.
== END 2020-08-27 10:33 | disposition home or self-care (01) ==
LOC: RADSHAW 10:36
PROVIDERS: PCP Nurse Practitioner Family; Visit Provider Nurse Practitioner Family
DX: R20.2 Paresthesia of skin (principal)
CPT/HCPCS: 70553; A9577

== ENCOUNTER → 2020-09-02 09:51 | Outpatient (BNVA) | payer MEDICAID, SELFPAY | PROVIDERS: PCP Nurse Practitioner Family; Visit Provider Nurse Practitioner Family | DX: R73.09 Other abnormal glucose (principal) | CPT/HCPCS: 83036 ==

== ENCOUNTER → 2020-09-03 15:25 | Outpatient (BNVA) | payer MEDICAID, SELFPAY | PROVIDERS: PCP Nurse Practitioner Family; Visit Provider Nurse Practitioner Family | DX: R32 Unspecified urinary incontinence (principal); R73.03 Prediabetes; A60.00 Herpesviral infection of urogenital system, unspecified | CPT/HCPCS: 81000; 81003; 84443; 87086 ==

== ENCOUNTER → 2020-09-19 13:26 | Outpatient (BNVA) | payer MEDICAID, SELFPAY | PROVIDERS: PCP Nurse Practitioner; Visit Provider Nurse Practitioner | DX: M25.562 Pain in left knee (principal) | CPT/HCPCS: 73562 ==

== ENCOUNTER → 2020-09-23 10:57 | Outpatient (BNVA) | payer MEDICAID, SELFPAY | PROVIDERS: PCP Nurse Practitioner; Visit Provider Social Worker Clinical | DX: F33.1 Major depressive disorder, recurrent, moderate (principal) | CPT/HCPCS: 90834 ==

== ENCOUNTER → 2020-09-30 10:52 | Outpatient (BNVA) | payer MEDICAID, SELFPAY | PROVIDERS: PCP Nurse Practitioner; Visit Provider Social Worker Clinical | DX: F33.1 Major depressive disorder, recurrent, moderate (principal) | CPT/HCPCS: 90834 ==

== ENCOUNTER → 2020-10-21 08:13 | Outpatient (BNVA) | payer MEDICAID, SELFPAY | PROVIDERS: PCP Nurse Practitioner; Visit Provider Social Worker Clinical | DX: F33.1 Major depressive disorder, recurrent, moderate (principal) | CPT/HCPCS: 90832 ==

== ENCOUNTER → 2020-11-04 08:22 | Outpatient (BNVA) | payer MEDICAID, SELFPAY | PROVIDERS: PCP Nurse Practitioner; Visit Provider Social Worker Clinical | DX: F33.1 Major depressive disorder, recurrent, moderate (principal) | CPT/HCPCS: 90832 ==

== ENCOUNTER → 2020-11-11 07:57 | Outpatient (BNVA) | payer MEDICAID, SELFPAY | PROVIDERS: PCP Nurse Practitioner; Visit Provider Nurse Practitioner Psychiatric/Mental Health | DX: F33.1 Major depressive disorder, recurrent, moderate (principal) | CPT/HCPCS: 99213 ==

== ENCOUNTER 2020-12-16 14:05 | Outpatient (CLI) | payer MEDICAID, SELFPAY ==
--- NOTE | 2020-12-16 14:18 | USCV_ITS ---
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 Lower extremity pain. PROCEDURES: Venous duplex imaging was performed in only the right lower extremity. The following venous structures were evaluated: common femoral vein, profunda vein, proximal portion of the greater saphenous vein, superficial femoral vein, and the popliteal vein. In addition, the posterior tibial and peroneal trunk were evaluated. Serial compression, augmentation maneuvers, and spectral Doppler flow evaluation were performed. FINDINGS: Normal 2-D Doppler and augmentation and compressibility throughout the lower extremity venous structures. Additional imaging through the proximal calf veins also reveals no thrombus. Limited evaluation of the greater saphenous vein is patent with no thrombus. CONCLUSIONS No DVT right lower extremity. Dr. Debra Grove DO (Electronically Signed) Final Date: 16 December 2020 16:07 S
== END 2020-12-16 14:06 | disposition home or self-care (01) ==
PROVIDERS: PCP Nurse Practitioner; Visit Provider Nurse Practitioner Family
DX: M79.661 Pain in right lower leg (principal); R73.03 Prediabetes
CPT/HCPCS: 80053; 80061; 83036; 85025; 93971

== ENCOUNTER 2021-01-24 12:48 | Emergency (ER) | payer MEDICAID, SELFPAY ==
--- NOTE | 2021-01-24 13:18 | CTR_ITS ---
PROCEDURE INFORMATION: Exam: CT Head Without Contrast Exam date and time: 01/24/2021 1:18 PM Age: 50 years old Clinical indication: Pain; Headache; Patient HX: Gonzales/high BP; Additional info: Rule out pathologies TECHNIQUE: Imaging protocol: Computed tomography of the head without contrast. Radiation optimization: All CT scans at this facility use at least one of these dose optimization techniques: automated exposure control; mA and/or kV adjustment per patient size (includes targeted exams where dose is matched to clinical indication); or iterative reconstruction. COMPARISON: No relevant prior studies available. RADIATION DOSE METRICS: Total DLP (mGy-cm): 755.37 FINDINGS: Brain: Normal. No hemorrhage. Unremarkable white matter. No mass effect. Cerebral ventricles: No ventriculomegaly. Paranasal sinuses: Visualized sinuses are unremarkable. No fluid levels. Mastoid air cells: Visualized mastoid air cells are well aerated. Bones/joints: Unremarkable. No acute fracture. Soft tissues: Unremarkable. CT/CT head wo con* [id number] IMPRESSION: No acute intracranial abnormality. Radiation Dose CTDIVOL = (mGy): DLP = 755.37 (mGy-cm)
[2021-01-24 13:56] VITALS: BP 151/101; PULSE 94; RESP 18; TEMP 36.7; O2SAT 94; BMI 37.3
--- NOTE | 2021-01-24 17:29 | W.ED.HA ---
HPI - Headache General: Chief Complaint: Headache Stated Complaint: HEADACHE Time Seen by Provider: 01/24/21 17:29 Source: patient Mode of arrival: EMS Limitations: no limitations History of Present Illness: HPI Narrative: Patient is a 50-year-old female who presents to ED today via EMS for complaints of a headache. Patient states headache began early this morning after she awoke. Patient states she took her blood pressure and noted it was elevated at 150s/110s. She states that is abnormal for her as she normally runs 120s/80s. Patient has no history of hypertension and does not take blood pressure medications. She states when headache first started she did have some visual changes but these have subsided. She is not complaining of chest pain, shortness of breath, difficulty breathing. She has had no new changes to her medication regimen. She does have a history of migraine headaches but states she has not had a migraine in several years and states this does not feel similar. She took Tylenol without much relief. She is currently rating her headache at an 8/10. MD elicited complaint: headache Onset (ago): hour(s) Location: generalized Severity: severe Pain scale (0-10): 8 Exacerbating factors: none Relieving factors: nothing Context: occurred at rest Associated symptoms: Reports other (reports visual changes when it first started but these have resolved); Deny chest pain, confusion, fever(s), lightheadedness, malaise, nausea, pre-syncope, rash, syncope or vomiting Treatments prior to arrival: acetaminophen Review of Systems Const: Denies: fever(s), chills, body aches, fatigue or malaise Eyes: Denies: change in vision, blurry vision, photophobia, eye discomfort, floaters or seeing flashes ENMT: Denies: throat pain, odynophagia, nasal discharge or nasal congestion Card: Denies: chest pain, palpitations, irregular heart rhythm, edema, swelling of feet/ankles, lightheadedness, syncope or pre-syncope Resp: Denies: dyspnea, productive cough, non-productive cough or chest congestion GI: Denies: abdominal pain, nausea, vomiting or diarrhea : Denies: flank pain, difficulty voiding, dysuria or hematuria Musc: Denies: neck pain, back pain, extremity pain or joint pain Skin/Breast: Denies: rash Neuro: Reports: headache(s); Denies: numbness in extremities, weakness in extremities, sensory changes, lack of coordination, difficulty walking, frequent falls, dizziness, confusion, behavioral changes, Slurred speech present, difficulty communicating thoughts or seizure-like activity PFS ED PFSH: Medical History CVA (cerebral vascular accident) Depression Major depressive disorder, recurrent, moderate YAIR (obstructive sleep apnea) Shortness of breath Surgical History H/O laparoscopy H/O: hysterectomy History of cholecystectomy History of tubal ligation Hx of oophorectomy Family History Father CAD (coronary artery disease) Cancer Diabetes Hyperlipidemia Mother Hypertension Psychiatric illness Brother Hypertension Denies family history of Clotting disorder Dementia Chronic kidney disease (CKD) Suicide Anesthesia complication Bleeding disorder Family history of premature coronary artery disease Lung disease Stroke Social History Smoking and tobacco status: current every day smoker Second hand smoke exposure: Yes Alcohol intake: current Alcohol intake frequency: holidays/special occasions only Alcohol type: other Lives independently: Yes Household members: family and children Marital status: Single service: No Current occupational status: employed Current occupation: [employer] Current occupational exposures/hazards: No History of recent travel: No Current gender identity: Female Special clint needs: No Agree to transfusion: Yes Physical Exam Const: COMMON NORMALS: no acute distress, patient oriented x3, no limitations and alert GENERAL APPEARANCE: cooperative NUTRITIONAL APPEARANCE: overweight ORIENTATION/CONSCIOUSNESS: Yes awake, Yes oriented to person, Yes oriented to place and Yes oriented to time HENMT: COMMON NORMALS: normocephalic, atraumatic, hearing grossly normal bilaterally, external ears normal, EAC's normal, TM's normal bilaterally and Normal external nose present HEAD & SCALP: normal to inspection, normocephalic and atraumatic FACE & SINUS: normal facial exam NOSE: Normal external nose present EXTERNAL EAR: Yes external ears normal EXTERNAL AUDITORY CANAL: EAC's normal TYMPANIC MEMBRANE: TM's normal bilaterally Eye: COMMON NORMALS: Equal, round and reactive pupils present and EOMs intact bilaterally GENERAL EYE: appearance normal, both eyes and all related structures and normal light reflex PUPIL: Yes Equal, round and reactive pupils present DIRECT OPHTHALMOSCOPY: Yes normal light reflex Neck/C-Spine: COMMON NORMALS: full ROM GENERAL: Yes normal visual inspection and No JVD Resp: COMMON NORMALS: normal respiratory effort and clear to auscultation bilaterally AUSCULTATION: clear to auscultation bilaterally Cardio: COMMON NORMALS: regular rate and regular rhythm RATE: regular rate RHYTHM: regular rhythm Neuro: BETH COMA SCALE: document GCS findings Beth coma scale eye opening: Spontaneous [place] coma scale verbal response: Orientated Beth coma scale motor response: Obey commands Beth coma scale total score: 15 COMMON NORMALS: patient oriented x3, CN's II-XII intact bilaterally, moves all extremities, no focal motor deficits, no sensory deficits noted and gait normal SENSORIUM/ORIENTATION: Yes alert, Yes oriented to person, Yes oriented to place and Yes oriented to time SPEECH: speech normal GAIT: Yes Normal gait present MOTOR EXAM: 5/5 motor strength present throughout Skin: COMMON NORMALS: no rashes or lesions noted GENERAL SKIN EXAM: no rashes or lesions noted Course Vital Signs: Vital signs: Vital Signs Temperature 98.1 F 01/24/21 13:56 Pulse Rate 95 01/24/21 18:39 Respiratory Rate 15 01/24/21 18:39 Blood Pressure 116/81 01/24/21 18:39 Pulse Oximetry 96 01/24/21 18:39 MDM - Headache MDM Narrative: Medical decision making narrative: [place] TORO improved with Toradol. CT head negative. BP came down to 120s/80s on its own w/o intervention. Recommend BP log and follow up with PCP in 1-2 weeks. Return to ED precautions given. Imaging Data^: CT Head: Radiologist's impression: [address] [id number] Scan ReportSigned Patient: Gale Veloz #: [id number]: 1970Acct#:[id number]/Sex: 50 / FADM Date: 01/24/21Loc: ERRoom/Bed:Attending Dr: Ordering Provider/Ordering MD: Luli Tipton MD Date of Service: 01/24/21 Procedure(s): CT head wo con* [id number] Accession Number(s): [id number] Report Number: [id number] PROCEDURE INFORMATION: Exam: CT Head Without Contrast Exam date and time: 01/24/2021 1:18 PM Age: 50 years old Clinical indication: Pain; Headache; Patient HX: [place]/high BP; Additional info: Rule out pathologies TECHNIQUE: Imaging protocol: Computed tomography of the head without contrast. Radiation optimization: All CT scans at this facility use at least one of these dose optimization techniques: automated exposure control; mA and/or kV adjustment per patient size (includes targeted exams where dose is matched to clinical indication); or iterative reconstruction. COMPARISON: No relevant prior studies available. RADIATION DOSE METRICS: Total DLP (mGy-cm): 755.37 FINDINGS: Brain: Normal. No hemorrhage. Unremarkable white matter. No mass effect. Cerebral ventricles: No ventriculomegaly. Paranasal sinuses: Visualized sinuses are unremarkable. No fluid levels. Mastoid air cells: Visualized mastoid air cells are well aerated. Bones/joints: Unremarkable. No acute fracture. Soft tissues: Unremarkable. CT/CT head wo con* [id number] IMPRESSION: No acute intracranial abnormality. Radiation Dose CTDIVOL = (mGy): DLP = 755.37 (mGy-cm) Dictated By:Jj Carey MDSigned By:Jj Carey MDSigned Date/Time:01/24/211938DD/ 37 Discharge Plan Discharge Patient Disposition: Home Clinical Impression: Elevated blood pressure reading Headache Qualifiers: Headache type: unspecified Headache chronicity pattern: acute headache Intractability: not intractable Qualified Code(s): R51.9 - Headache, unspecified Condition: Stable Prescriptions: No Action albuterol sulfate 2.5 mg /3 mL (0.083 %) solution for nebulization 2.5 mg INHALATION Q4H PRN (Reason: Shortness Of Breath) RF: 0 (DME) blood-glucose meter [Blood Glucose Monitoring] Kit See Rx Instructions .ROUTE .MEDSUPPLY Qty: 1 RF: 0 (DME) Blood Glucose Test Strip See Rx Instructions .ROUTE .MEDSUPPLY Qty: 100 RF: 3 (DME) lancets [BD Ultra Fine Lancets] 33 gauge misc See Rx Instructions .ROUTE .MEDSUPPLY Qty: 100 RF: 3 fluticasone propionate [Flonase Allergy Relief] 50 mcg/actuation spray,suspension 2 spray intranasal DAILY Qty: 15.8 RF: 0 meloxicam 15 mg tablet 15 mg PO DAILY Qty: 30 RF: 2 fluoxetine 20 mg/5 mL (4 mg/mL) solution 60 mg PO DAILY@07 Qty: 450 RF: 2 albuterol sulfate 90 mcg/actuation aerosol powdr breath activated 2 inh INHALATION Q6H PRN (Reason: shortness of breath or wheezing) Qty: 1 RF: 2 metformin 500 mg tablet 1,000 mg PO BID Qty: 180 RF: 1 albuterol sulfate 2.5 mg /3 mL (0.083 %) solution for nebulization 2.5 mg inhalation QID PRN (Reason: shortness of breath or wheezing) Qty: 180 RF: 2 oxybutynin chloride 10 mg tablet extended release 24hr 10 mg PO DAILY Qty: 90 RF: 1 budesonide-formoterol [Symbicort] 80-4.5 mcg/actuation HFA aerosol inhaler 2 puff INHALATION Q12H 30 Days Qty: 10.2 RF: 2 Spiriva with HandiHaler 18 mcg capsule, w/inhalation device 1 cap INHALATION DAILY@07 Qty: 60 RF: 2 nitroglycerin [Nitrostat] 0.4 mg tablet, sublingual 0.4 mg SUBLINGUAL Q5M PRN (Reason: Chest Pain) Qty: 25 RF: 3 OneTouch Ultra Blue Test Strip Strip See Rx Instructions .ROUTE .COMPLEX Qty: 100 RF: 3 acyclovir [Zovirax] 5 % cream 1 applic topical .5x/day 4 Days Qty: 5 RF: 1 aspirin [Aspir-81] 81 mg Tablet,Delayed Release (Dr/Ec) 81 mg PO DAILY@07 RF: 0 tizanidine 4 mg Tablet 4 mg PO TID PRN (Reason: Spasms) RF: 0 Discharge Orders: Discharge ED (Routine); Ordered 01/24/21 Ordered By: Sandhya Wyatt Referrals: Lisa Flores, DATA ANALYSIS INTERN [Primary Care Provider] - Activity Restrictions/Additional Instructions: As we discussed please keep a blood pressure log once in the morning once in the evening and then follow-up with primary care in 1 to 2 weeks. May return to the emergency department for blood pressure readings of over 160/120 accompanied with severe headache, chest pain, difficulty breathing, shortness of breath Coding Level of Care Code ED Heavy Mobile Equipment Operator for Chg Fwd Exam Comprehensive
[2021-01-24 18:11] VITALS: BP 122/81; PULSE 91; RESP 15; O2SAT 96
[2021-01-24 18:39] VITALS: BP 116/81; PULSE 95; RESP 15; O2SAT 96
[2021-01-24] MEDS: ketorolac 60 mg/2 mL INJ IM (18:39)
[2021-01-24 20:06] VITALS: BP 124/88; PULSE 80; RESP 16; O2SAT 95
== END 2021-01-24 20:08 | disposition home or self-care (01) ==
PROVIDERS: Emergency Provider Physician Assistant; PCP Nurse Practitioner
DX: R51.9 Headache, unspecified (principal); R03.0 Elevated blood-pressure reading, without diagnosis of hypertension; F17.200 Nicotine dependence, unspecified, uncomplicated; Z86.73 Personal history of transient ischemic attack (TIA), and cerebral infarction without residual deficits
CPT/HCPCS: 70450; 96372; 99283; J1885

== ENCOUNTER → 2021-01-27 10:15 | Outpatient (BNVA) | payer MEDICAID, SELFPAY | PROVIDERS: PCP Nurse Practitioner; Visit Provider Social Worker Clinical | DX: F33.1 Major depressive disorder, recurrent, moderate (principal) | CPT/HCPCS: 90834 ==

== ENCOUNTER → 2021-02-10 08:07 | Outpatient (BNVA) | payer MEDICAID, SELFPAY | PROVIDERS: PCP Nurse Practitioner; Visit Provider Social Worker Clinical | DX: F33.1 Major depressive disorder, recurrent, moderate (principal) | CPT/HCPCS: 90834 ==

== ENCOUNTER → 2021-02-24 09:13 | Outpatient (BNVA) | payer MEDICAID, SELFPAY | PROVIDERS: PCP Nurse Practitioner; Visit Provider Social Worker Clinical | DX: F33.1 Major depressive disorder, recurrent, moderate (principal) | CPT/HCPCS: 90834 ==

== ENCOUNTER → 2021-03-10 10:53 | Outpatient (BNVA) | payer MEDICAID, SELFPAY | PROVIDERS: PCP Nurse Practitioner; Visit Provider Social Worker Clinical | DX: F33.1 Major depressive disorder, recurrent, moderate (principal) | CPT/HCPCS: 90834 ==

== ENCOUNTER → 2021-03-24 15:48 | Outpatient (BNVA) | payer MEDICAID, SELFPAY | PROVIDERS: PCP Nurse Practitioner; Visit Provider Social Worker Clinical | DX: F33.1 Major depressive disorder, recurrent, moderate (principal) | CPT/HCPCS: 90832 ==

== ENCOUNTER → 2021-04-07 08:04 | Outpatient (BNVA) | payer MEDICAID, SELFPAY | PROVIDERS: PCP Nurse Practitioner; Visit Provider Social Worker Clinical | DX: F33.1 Major depressive disorder, recurrent, moderate (principal) | CPT/HCPCS: 90834 ==

== ENCOUNTER → 2021-04-14 09:44 | Outpatient (BNVA) | payer MEDICAID, SELFPAY | PROVIDERS: PCP Nurse Practitioner; Visit Provider Nurse Practitioner Psychiatric/Mental Health | DX: F33.1 Major depressive disorder, recurrent, moderate (principal) | CPT/HCPCS: 99213 ==

== ENCOUNTER → 2021-04-21 14:20 | Outpatient (BNVA) | payer MEDICAID, SELFPAY | PROVIDERS: PCP Nurse Practitioner; Visit Provider Social Worker Clinical | DX: F33.1 Major depressive disorder, recurrent, moderate (principal) | CPT/HCPCS: 90834 ==

== ENCOUNTER 2021-04-29 10:25 | Outpatient (CLI) | payer MEDICAID, SELFPAY ==
[2021-04-29 11:26] LABS: Cholesterol 195 mg/dL (0-200); Free T4 Free Thyroxine 0.92 ng/dL (0.82-1.77); HDL Cholesterol 30 mg/dL (60-100); LDL Cholesterol Calculated 125 mg/dL (50-129); LDL HDL Ratio 4.17 RATIO (0.00-3.22); Thyroid Stimulating Hormone 2.08 uIU/mL (0.27-4.20); Triglycerides 201 mg/dL (0-150)
[2021-04-29 12:03] LABS: Estmated Average Glucose 134; Hemoglobin A1C 6.3 % (4.0-6.0)
== END 2021-04-29 10:26 | disposition home or self-care (01) ==
PROVIDERS: PCP Nurse Practitioner; Visit Provider Internal Medicine
DX: R73.03 Prediabetes (principal); R63.5 Abnormal weight gain; Z77.22 Contact with and (suspected) exposure to environmental tobacco smoke (acute) (chronic); Z79.84 Long term (current) use of oral hypoglycemic drugs; Z68.33 Body mass index [BMI] 33.0-33.9, adult
CPT/HCPCS: 80061; 83036; 84439; 84443; 99204

== ENCOUNTER → 2021-05-05 09:57 | Outpatient (BNVA) | payer MEDICAID, SELFPAY | PROVIDERS: PCP Nurse Practitioner; Visit Provider Social Worker Clinical | DX: F33.1 Major depressive disorder, recurrent, moderate (principal) | CPT/HCPCS: 90791 ==

== ENCOUNTER → 2021-05-12 07:45 | Outpatient (BNVA) | payer MEDICAID, SELFPAY | PROVIDERS: PCP Nurse Practitioner; Visit Provider Social Worker Clinical | DX: F33.1 Major depressive disorder, recurrent, moderate (principal) | CPT/HCPCS: 90832 ==

== ENCOUNTER → 2021-06-09 09:31 | Outpatient (BNVA) | payer MEDICAID, SELFPAY | PROVIDERS: PCP Nurse Practitioner; Visit Provider Social Worker Clinical | DX: F33.1 Major depressive disorder, recurrent, moderate (principal) | CPT/HCPCS: 90834 ==

== ENCOUNTER → 2021-06-16 08:18 | Outpatient (BNVA) | payer MEDICAID, SELFPAY | PROVIDERS: PCP Nurse Practitioner; Visit Provider Social Worker Clinical | DX: F33.1 Major depressive disorder, recurrent, moderate (principal) | CPT/HCPCS: 90834 ==

== ENCOUNTER → 2021-06-30 07:41 | Outpatient (BNVA) | payer MEDICAID, SELFPAY | PROVIDERS: PCP Nurse Practitioner; Visit Provider Social Worker Clinical | DX: F33.1 Major depressive disorder, recurrent, moderate (principal) | CPT/HCPCS: 90834 ==

== ENCOUNTER → 2021-07-14 09:11 | Outpatient (BNVA) | payer MEDICAID, SELFPAY | PROVIDERS: PCP Nurse Practitioner; Visit Provider Social Worker Clinical | DX: F33.1 Major depressive disorder, recurrent, moderate (principal) | CPT/HCPCS: 90834 ==

== ENCOUNTER 2021-07-21 09:53 | Emergency (ER) | payer MEDICAID, SELFPAY ==
--- NOTE | 2021-07-21 10:07 | ED_ITS ---
Documented by User: ANURAG Johnson 07/21/21 12:58 HPI - Abdominal Pain General: Chief Complaint: Abdominal Pain Stated Complaint: RIGHT LOWER ABDOMEN PAIN Time Seen by Provider: 07/21/21 09:55 Source: patient Mode of arrival: ambulatory Limitations: no limitations History of Present Illness: Patient is a 50-year-old female presents to ED today with complaint of right lower and suprapubic abdominal pain. Patient states pain began about 3 days ago and has progressively worsened. She states she has also started developing diarrhea and vomiting. She has not noticed any hematochezia or melanotic stools. No bloody or bilious emesis. She has not had any documented fevers but states she was having chills last night. Patient is status post oophorectomy/hysterectomy. She is not having any dysuria, frequency, urgency. No flank pain. MD elicited complaint: abdominal pain Pertinent past history: none Onset (ago): day(s) Pain Consistency: constant Location: RLQ and Suprapubic Severity: severe Quality: sharp Radiation: none Migration to: no migration Exacerbating factors: nothing Relieving factors: other ( curling up in a ball ) Associated Symptoms: Reports chills, diarrhea, nausea and vomiting; Denies change in bowel habits, change in stool character, dysuria, fever(s), hematochezia and hematemesis Related Data: Patient : No Review of Systems Const: Reports: chills; Denies: fever(s), body aches, fatigue or malaise Card: Denies: chest pain Resp: Denies: dyspnea GI: Reports: abdominal pain, nausea, vomiting and diarrhea; Denies: hematemesis, change in bowel habits, change in stool character or hematochezia : Denies: flank pain, difficulty voiding, dysuria, urinary frequency or urinary urgency Musc: Denies: neck pain, back pain, extremity pain or joint pain Skin/Breast: Denies: rash Neuro: Denies: headache(s), numbness in extremities, weakness in extremities, sensory changes or dizziness PFS ED PFSH: Medical History CVA (cerebral vascular accident) Depression Major depressive disorder, recurrent, moderate YAIR (obstructive sleep apnea) Psychiatric care Shortness of breath Surgical History H/O laparoscopy H/O: hysterectomy History of cholecystectomy History of tubal ligation Hx of oophorectomy Family History Father CAD (coronary artery disease) Cancer Diabetes Hyperlipidemia Mother Hypertension Psychiatric illness Brother Hypertension Denies family history of Clotting disorder Dementia Chronic kidney disease (CKD) Suicide Anesthesia complication Bleeding disorder Family history of premature coronary artery disease Lung disease Stroke Social History Smoking and tobacco status: never smoked Second hand smoke exposure: Yes Alcohol intake: current Alcohol intake frequency: holidays/special occasions only Alcohol type: other Lives independently: Yes Household members: family and children Marital status: Single service: No Current occupational status: employed Current occupation: [employer] Current occupational exposures/hazards: No History of recent travel: No Current gender identity: Female Special clint needs: No Agree to transfusion: Yes Physical Exam Const: COMMON NORMALS: no acute distress, patient oriented x3, no limitations and alert NUTRITIONAL APPEARANCE: overweight ORIENTATION/CONSCIOUSNESS: Yes awake, Yes oriented to person, Yes oriented to place and Yes oriented to time HENMT: COMMON NORMALS: normocephalic and atraumatic HEAD & SCALP: normocephalic and atraumatic Resp: COMMON NORMALS: normal respiratory effort and clear to auscultation bilaterally AUSCULTATION: clear to auscultation bilaterally Cardio: COMMON NORMALS: regular rate and regular rhythm RATE: regular rate RHYTHM: regular rhythm GI: COMMON NORMALS: Normal to inspection, nondistended, normoactive bowel sounds present, Soft to palpation, No hepatosplenomegaly present and no masses INSPECTION: Yes normal to inspection PALPATION: Yes Soft to palpation, Yes Tenderness to palpation present (GI) Details: RLQ and other (suprapubic) and Yes No hepatosplenomegaly present : COMMON NORMALS: Yes no CVA tenderness BLADDER/KIDNEY EXAM: Yes no CVA tenderness Back/Pelvis: COMMON NORMALS: no CVA tenderness Extremity: COMMON NORMALS: normal to inspection GENERAL: Yes normal exam except as noted Neuro: BETH COMA SCALE: document GCS findings Blackstone coma scale eye opening: Spontaneous Beth coma scale verbal response: Orientated Beth coma scale motor response: Obey commands Blackstone coma scale total score: 15 COMMON NORMALS: patient oriented x3, moves all extremities, no sensory deficits noted and gait normal SENSORIUM/ORIENTATION: Yes alert, Yes oriented to person, Yes oriented to place and Yes oriented to time Skin: COMMON NORMALS: no rashes or lesions noted GENERAL SKIN EXAM: no rashes or lesions noted Course Vital Signs: Vital signs: Vital Signs Temperature 98 F 07/21/21 10:23 Pulse Rate 102 H 07/21/21 12:58 Respiratory Rate 16 07/21/21 12:58 Blood Pressure 135/83 07/21/21 12:58 Pulse Oximetry 96 07/21/21 12:58 MDM - Abdominal Pain Medical Decision Making Patient is a 50-year-old female here for concerns of lower abdominal pain, vom iting, and diarrhea. Patient was initially tachycardic upon arrival but this resolved after she was placed in a room. Patient's lab work overall is fairly unremarkable. CT scan is normal. After speaking to patient further she states that symptoms began after eating what she thought was undercooked chicken from [email or web address]. Discussed possibility of gastroenteritis and how most of these are self-limited. Give her prescription for Zofran to help with the nausea and vomiting. Recommended conservative treatment with fluids and bland liquid diet over the next 4 to 48 hours advancing as tolerated. Return to ED precautions verbally given to patient. She did not have any episodes of vomiting or diarrhea throughout her stay. Lab Data : 07/21/21 10:17 07/21/21 10:17 Labs/Radiology: Radiology Impressions Abdomen/Pelvis CT 07/21/21 10:13 IMPRESSION: 1. No GI tract obstruction. No evidence for appendicitis. 2. Prior hysterectomy and cholecystectomy. 3. No free fluid or free air. Laboratory Results WBC 13.4 10^3/uL (4.0-10.0) H 07/21/21 10:17 RBC 5.37 10^6/uL (4.1-5.3) H 07/21/21 10:17 Hgb 15.2 g/dL (11.5-15.3) 07/21/21 10:17 Hct 47.4 % (37.0-47.0) H 07/21/21 10:17 MCV 88.3 fl (81-99) 07/21/21 10:17 MCH 28.3 pg (28.0-34.0) 07/21/21 10:17 MCHC 32.1 g/dL (30.0-36.0) 07/21/21 10:17 RDW 13.1 % (12.1-15.1) 07/21/21 10:17 Plt Count 328 10^3/cmm (130-400) 07/21/21 10:17 MPV 10.1 fL (7.4-10.4) 07/21/21 10:17 Neut % (Auto) 67.3 % 07/21/21 10:17 Lymph % (Auto) 22.6 % 07/21/21 10:17 [place] % (Auto) 8.0 % 07/21/21 10:17 Eos % (Auto) 1.1 % 07/21/21 10:17 Baso % (Auto) 0.6 % 07/21/21 10:17 Neut # (Auto) 9.04 10^3/uL (1.8-7.7) H 07/21/21 10:17 Lymph # (Auto) 3.0 10^3/uL (0.8-4.8) 07/21/21 10:17 [place] # (Auto) 1.1 10^3/uL (0.2-0.9) H 07/21/21 10:17 Eos # (Auto) 0.2 10^3/uL (0.0-0.8) 07/21/21 10:17 Baso # (Auto) 0.1 10^3/uL (0.0-0.1) 07/21/21 10:17 Nucleated RBC % (auto) 0 % 07/21/21 10:17 Nucleated RBCs # 0.0 /100WBC 07/21/21 10:17 Sodium 137 mmol/L (136-145) 07/21/21 10:17 Potassium 3.8 mmol/L (3.5-5.1) 07/21/21 10:17 Chloride 101 mmol/L (98-107) 07/21/21 10:17 Carbon Dioxide 23 mmol/L (22-29) 07/21/21 10:17 Anion Gap 16.8 (5-19) 07/21/21 10:17 BUN 10 mg/dL (6-20) 07/21/21 10:17 Creatinine 0.7 mg/dL (0.5-0.9) 07/21/21 10:17 GFR Calculation 88.9 mL/min (90-130) L 07/21/21 10:17 Glucose 94 mg/dL (65-115) 07/21/21 10:17 Calculated Osmolality 283 mOsm/kg (285-295) L 07/21/21 10:17 Calcium 10.2 mg/dL (8.5-10.5) 07/21/21 10:17 Total Bilirubin 0.6 mg/dL (0.15-1.2) 07/21/21 10:17 AST 19 U/L (0-32) 07/21/21 10:17 ALT 18 U/L (0-33) 07/21/21 10:17 Alkaline Phosphatase 125 IU/L (35-105) H 07/21/21 10:17 Total Protein 8.7 g/dL (6.6-8.7) 07/21/21 10:17 Albumin 4.3 g/dL (3.5-5.2) 07/21/21 10:17 Globulin 4.4 g/dL (1.3-4.6) 07/21/21 10:17 Urine Color Yellow (Yellow) 07/21/21 10:17 Urine Appearance Clear (CLEAR) 07/21/21 10:17 Urine pH 5 (5-7) 07/21/21 10:17 Ur Specific [place] 1.030 (1.005-1.030) 07/21/21 10:17 Urine Protein Neg (Negative) 07/21/21 10:17 Urine Glucose (UA) Norm (Normal) 07/21/21 10:17 Urine Ketones Negative (Negative) 07/21/21 10:17 Urine Blood Neg (Negative) 07/21/21 10:17 Urine Nitrate Negative (Negative) 07/21/21 10:17 Urine Bilirubin Neg (Negative) 07/21/21 10:17 Urine Urobilinogen Norm mg/dL (Negative) 07/21/21 10:17 Ur Leukocyte Esterase Negative (Negative) 07/21/21 10:17 Discharge Plan Discharge Patient Disposition: Home Clinical Impression: Gastroenteritis Condition: Stable Prescriptions: New Zofran 4 mg tablet 4 mg PO Q6H PRN (Reason: nausea and vomiting) Qty: 14 0RF No Action (DME) blood-glucose meter [Blood Glucose Monitoring] Kit See Rx Instructions .ROUTE .MEDSUPPLY Qty: 1 0RF Rx Instructions: check blood sugar daily as directed (DME) Blood Glucose Test Strip See Rx Instructions .ROUTE .MEDSUPPLY Qty: 100 3RF Rx Instructions: check blood sugar (DME) lancets [BD Ultra Fine Lancets] 33 gauge misc See Rx Instructions .ROUTE .MEDSUPPLY Qty: 100 3RF Rx Instructions: check blood sugar daily as directed Spiriva with HandiHaler 18 mcg capsule, w/inhalation device 1 cap INHALATION DAILY@07 Qty: 90 2RF Rx Instructions: puncture 1 cap using device; one dose = 2 inhalations fluoxetine 20 mg/5 mL (4 mg/mL) solution 60 mg PO DAILY@07 Qty: 450 2RF fluticasone propionate [Flonase Allergy Relief] 50 mcg/actuation spray,suspension 2 spray intranasal DAILY Qty: 15.8 0RF Rx Instructions: administer into each nostril albuterol sulfate 90 mcg/actuation aerosol powdr breath activated 2 inh INHALATION Q6H PRN (Reason: shortness of breath or wheezing) Qty: 1 2RF albuterol sulfate 2.5 mg /3 mL (0.083 %) solution for nebulization 2.5 mg inhalation QID PRN (Reason: shortness of breath or wheezing) Qty: 180 2RF oxybutynin chloride 10 mg tablet extended release 24hr 10 mg PO DAILY Qty: 90 1RF budesonide-formoterol [Symbicort] 80-4.5 mcg/actuation HFA aerosol inhaler 2 puff INHALATION Q12H 30 Days Qty: 10.2 2RF Rx Instructions: at 0700 & 1900 nitroglycerin [Nitrostat] 0.4 mg tablet, sublingual 0.4 mg SUBLINGUAL Q5M PRN (Reason: Chest Pain) Qty: 25 3RF Victoza 3-Rahul 0.6 mg/0.1 mL (18 mg/3 mL) pen injector 1.8 mg SUBCUT DAILY Qty: 9 3RF Rx Instructions: 0.6 mg once subcut daily for 1 week, then 1.2 mg daily for 1 week, then 1.8 mg daily and continue. polyethylene glycol 3350 [Miralax] 17 gram/dose powder 17 g PO DAILY Qty: 238 2RF (DME) pen needle, diabetic 32 gauge x 5/32 needle See Rx Instructions .Route Qty: 100 3RF Rx Instructions: As directed (DME) OneTouch Ultra Test Strip MISCELLANEOUS 0RF Aspir-81 81 mg Tablet,Delayed Release (Dr/Ec) 81 mg PO DAILY 0RF metformin 500 mg tablet 500 mg PO DAILY 0RF meloxicam 15 mg tablet 15 mg PO DAILY 0RF Discharge Orders: Discharge ED (Routine); Ordered 07/21/21 Ordered By: Sandhya Wyatt Referrals: Suzette Bowman FNP [Primary Care Provider] - Patient Instructions: Gastroenteritis (ED) Activity Restrictions/Additional Instructions: As we discussed lots of fluids, rest, bland liquid diet over the next 24 to 48 hours and advance as tolerated. You need to return to the emergency department for worsening or severe abdominal pains, persistent vomiting or diarrhea, blood in your vomit or stool, fevers greater than 100.4, or any other concerns you may have. Hope you begin to feel better soon. Coding Level of Care Code ED Constitutional Law Professor for Chg Fwd Exam Comprehensive Documented by User: Jartet Zamora MD 07/23/21 18:25 HPI - Abdominal Pain General: Chief Complaint: Abdominal Pain Stated Complaint: RIGHT LOWER ABDOMEN PAIN Time Seen by Provider: 07/21/21 09:55 [facility] ED PFSH: Medical History CVA (cerebral vascular accident) Depression Major depressive disorder, recurrent, moderate YAIR (obstructive sleep apnea) Psychiatric care Shortness of breath Surgical History H/O laparoscopy H/O: hysterectomy History of cholecystectomy History of tubal ligation Hx of oophorectomy Family History Father CAD (coronary artery disease) Cancer Diabetes Hyperlipidemia Mother Hypertension Psychiatric illness Brother Hypertension Denies family history of Clotting disorder Dementia Chronic kidney disease (CKD) Suicide Anesthesia complication Bleeding disorder Family history of premature coronary artery disease Lung disease Stroke Social History Smoking and tobacco status: never smoked Second hand smoke exposure: Yes Alcohol intake: current Alcohol intake frequency: holidays/special occasions only Alcohol type: other Lives independently: Yes Household members: family and children Marital status: Single service: No Current occupational status: employed Current occupation: [employer] Current occupational exposures/hazards: No History of recent travel: No Current gender identity: Female Special clint needs: No Agree to transfusion: Yes Physical Exam Neuro: BETH COMA SCALE: document GCS findings Beth coma scale total score: 15 Course Vital Signs: Vital signs: Vital Signs Temperature 98 F 07/21/21 10:23 Pulse Rate 102 H 07/21/21 12:58 Respiratory Rate 16 07/21/21 12:58 Blood Pressure 135/83 07/21/21 12:58 Pulse Oximetry 96 07/21/21 12:58 MDM - Abdominal Pain Medical Decision Making Patient is a 50-year-old female here for concerns of lower abdominal pain, vo miting, and diarrhea. Patient was initially tachycardic upon arrival but this resolved after she was placed in a room. Patient's lab work overall is fairly unremarkable. CT scan is normal. After speaking to patient further she states that symptoms began after eating what she thought was undercooked chicken from [employer]. Discussed possibility of gastroenteritis and how most of these are self-limited. Give her prescription for Zofran to help with the nausea and vomiting. Recommended conservative treatment with fluids and bland liquid diet over the next 4 to 48 hours advancing as tolerated. Return to ED precautions verbally given to patient. She did not have any episodes of vomiting or diarrhea throughout her stay. I have reviewed this documentation by ANURAG Johnson. Jarett Zamora MD Emergency Medicine Lab Data : 07/21/21 10:17 07/21/21 10:17 Labs/Radiology: Radiology Impressions Abdomen/Pelvis CT 07/21/21 10:13 IMPRESSION: 1. No GI tract obstruction. No evidence for appendicitis. 2. Prior hysterectomy and cholecystectomy. 3. No free fluid or free air. Laboratory Results WBC 13.4 10^3/uL (4.0-10.0) H 07/21/21 10:17 RBC 5.37 10^6/uL (4.1-5.3) H 07/21/21 10:17 Hgb 15.2 g/dL (11.5-15.3) 07/21/21 10:17 Hct 47.4 % (37.0-47.0) H 07/21/21 10:17 MCV 88.3 fl (81-99) 07/21/21 10:17 MCH 28.3 pg (28.0-34.0) 07/21/21 10:17 MCHC 32.1 g/dL (30.0-36.0) 07/21/21 10:17 RDW 13.1 % (12.1-15.1) 07/21/21 10:17 Plt Count 328 10^3/cmm (130-400) 07/21/21 10:17 MPV 10.1 fL (7.4-10.4) 07/21/21 10:17 Neut % (Auto) 67.3 % 07/21/21 10:17 Lymph % (Auto) 22.6 % 07/21/21 10:17 [facility] % (Auto) 8.0 % 07/21/21 10:17 Eos % (Auto) 1.1 % 07/21/21 10:17 Baso % (Auto) 0.6 % 07/21/21 10:17 Neut # (Auto) 9.04 10^3/uL (1.8-7.7) H 07/21/21 10:17 Lymph # (Auto) 3.0 10^3/uL (0.8-4.8) 07/21/21 10:17 [place] # (Auto) 1.1 10^3/uL (0.2-0.9) H 07/21/21 10:17 Eos # (Auto) 0.2 10^3/uL (0.0-0.8) 07/21/21 10:17 Baso # (Auto) 0.1 10^3/uL (0.0-0.1) 07/21/21 10:17 Nucleated RBC % (auto) 0 % 07/21/21 10:17 Nucleated RBCs # 0.0 /100WBC 07/21/21 10:17 Sodium 137 mmol/L (136-145) 07/21/21 10:17 Potassium 3.8 mmol/L (3.5-5.1) 07/21/21 10:17 Chloride 101 mmol/L (98-107) 07/21/21 10:17 Carbon Dioxide 23 mmol/L (22-29) 07/21/21 10:17 Anion Gap 16.8 (5-19) 07/21/21 10:17 BUN 10 mg/dL (6-20) 07/21/21 10:17 Creatinine 0.7 mg/dL (0.5-0.9) 07/21/21 10:17 GFR Calculation 88.9 mL/min (90-130) L 07/21/21 10:17 Glucose 94 mg/dL (65-115) 07/21/21 10:17 Calculated Osmolality 283 mOsm/kg (285-295) L 07/21/21 10:17 Calcium 10.2 mg/dL (8.5-10.5) 07/21/21 10:17 Total Bilirubin 0.6 mg/dL (0.15-1.2) 07/21/21 10:17 AST 19 U/L (0-32) 07/21/21 10:17 ALT 18 U/L (0-33) 07/21/21 10:17 Alkaline Phosphatase 125 IU/L (35-105) H 07/21/21 10:17 Total Protein 8.7 g/dL (6.6-8.7) 07/21/21 10:17 Albumin 4.3 g/dL (3.5-5.2) 07/21/21 10:17 Globulin 4.4 g/dL (1.3-4.6) 07/21/21 10:17 Urine Color Yellow (Yellow) 07/21/21 10:17 Urine Appearance Clear (CLEAR) 07/21/21 10:17 Urine pH 5 (5-7) 07/21/21 10:17 Ur Specific [place] 1.030 (1.005-1.030) 07/21/21 10:17 Urine Protein Neg (Negative) 07/21/21 10:17 Urine Glucose (UA) Norm (Normal) 07/21/21 10:17 Urine Ketones Negative (Negative) 07/21/21 10:17 Urine Blood Neg (Negative) 07/21/21 10:17 Urine Nitrate Negative (Negative) 07/21/21 10:17 Urine Bilirubin Neg (Negative) 07/21/21 10:17 Urine Urobilinogen Norm mg/dL (Negative) 07/21/21 10:17 Ur Leukocyte Esterase Negative (Negative) 07/21/21 10:17 Discharge Plan Discharge Patient Disposition: Home Clinical Impression: Gastroenteritis Condition: Stable Prescriptions: New Zofran 4 mg tablet 4 mg PO Q6H PRN (Reason: nausea and vomiting) Qty: 14 0RF No Action (DME) blood-glucose meter [Blood Glucose Monitoring] Kit See Rx Instructions .ROUTE .MEDSUPPLY Qty: 1 0RF Rx Instructions: check blood sugar daily as directed (DME) Blood Glucose Test Strip See Rx Instructions .ROUTE .MEDSUPPLY Qty: 100 3RF Rx Instructions: check blood sugar (DME) lancets [BD Ultra Fine Lancets] 33 gauge misc See Rx Instructions .ROUTE .MEDSUPPLY Qty: 100 3RF Rx Instructions: check blood sugar daily as directed Spiriva with HandiHaler 18 mcg capsule, w/inhalation device 1 cap INHALATION DAILY@07 Qty: 90 2RF Rx Instructions: puncture 1 cap using device; one dose = 2 inhalations fluoxetine 20 mg/5 mL (4 mg/mL) solution 60 mg PO DAILY@07 Qty: 450 2RF fluticasone propionate [Flonase Allergy Relief] 50 mcg/actuation spray,suspension 2 spray intranasal DAILY Qty: 15.8 0RF Rx Instructions: administer into each nostril albuterol sulfate 90 mcg/actuation aerosol powdr breath activated 2 inh INHALATION Q6H PRN (Reason: shortness of breath or wheezing) Qty: 1 2RF albuterol sulfate 2.5 mg /3 mL (0.083 %) solution for nebulization 2.5 mg inhalation QID PRN (Reason: shortness of breath or wheezing) Qty: 180 2RF oxybutynin chloride 10 mg tablet extended release 24hr 10 mg PO DAILY Qty: 90 1RF budesonide-formoterol [Symbicort] 80-4.5 mcg/actuation HFA aerosol inhaler 2 puff INHALATION Q12H 30 Days Qty: 10.2 2RF Rx Instructions: at 0700 & 1900 nitroglycerin [Nitrostat] 0.4 mg tablet, sublingual 0.4 mg SUBLINGUAL Q5M PRN (Reason: Chest Pain) Qty: 25 3RF Victoza 3-Rahul 0.6 mg/0.1 mL (18 mg/3 mL) pen injector 1.8 mg SUBCUT DAILY Qty: 9 3RF Rx Instructions: 0.6 mg once subcut daily for 1 week, then 1.2 mg daily for 1 week, then 1.8 mg daily and continue. polyethylene glycol 3350 [Miralax] 17 gram/dose powder 17 g PO DAILY Qty: 238 2RF (DME) pen needle, diabetic 32 gauge x 5/32 needle See Rx Instructions .Route Qty: 100 3RF Rx Instructions: As directed (DME) OneTouch Ultra Test Strip MISCELLANEOUS 0RF Aspir-81 81 mg Tablet,Delayed Release (Dr/Ec) 81 mg PO DAILY 0RF metformin 500 mg tablet 500 mg PO DAILY 0RF meloxicam 15 mg tablet 15 mg PO DAILY 0RF Discharge Orders: Discharge ED (Routine); Ordered 07/21/21 Ordered By: Sandhya Wyatt Referrals: Suzette Bowman FNP [Primary Care Provider] - Patient Instructions: Gastroenteritis (ED) Activity Restrictions/Additional Instructions: As we discussed lots of fluids, rest, bland liquid diet over the next 24 to 48 hours and advance as tolerated. You need to return to the emergency department for worsening or severe abdominal pains, persistent vomiting or diarrhea, blood in your vomit or stool, fevers greater than 100.4, or any other concerns you may have. Hope you begin to feel better soon. Coding Level of Care Code ED Constitutional Law Professor for Toni Fwstephanie Exam Comprehensive
--- NOTE | 2021-07-21 10:13 | CT_ITS ---
WS: [id number] CT ABDOMEN AND PELVIS WITH CONTRAST HISTORY: R lower/suprapubic abdominal pain; N/V/D TECHNIQUE: Imaging performed of the abdomen and pelvis with IV contrast. Single phase imaging of the abdomen. Coronal and sagittal reformats are submitted. All CT scans at [facility] use at [address] one of these dose optimization techniques: automated exposure control; mA and/or kV adjustment per patient size (includes targeted exams where dose is matched to clinical indication); or iterative re construction. IV CONTRAST: Omnipaque 300; 95 mL IV. Oral contrast: No DLP: 1656.16 mGy.cm COMPARISON: 03/04/2020 Lower thorax: 2 mm nodules noted at the RIGHT lung base. Heart is normal size. Small hiatal hernia. Liver/biliary system: Normal size with no intrahepatic dilatation. Gallbladder: Status post cholecystectomy. Pancreas: Normal size pancreas and pancreatic duct. No adjacent inflammation. Spleen: Normal size spleen. No mass or infarct. Adrenal glands: Normal. Right kidney: Normal. Left kidney: Normal. Aorta: Normal. Lymphadenopathy: None. Free fluid: None. GI tract: No GI tract obstruction. Stomach is nondistended. No small bowel obstruction. No evidence f or appendicitis. No acute inflammatory changes. Abdominal wall: Unremarkable abdominal wall. No hernia. Pelvis: Prior hysterectomy. 3.0 x 2.0 cm. There is no free fluid or adenopathy in the pelvis. Bones: Unremarkable. CT/CT abdomen pelvis w con* [id number] IMPRESSION: 1. No GI tract obstruction. No evidence for appendicitis. 2. Prior hysterectomy and cholecystectomy. 3. No free fluid or free air.
[2021-07-21 10:18] VITALS: RESP 16
[2021-07-21] MEDS: lactated ringers 1,000 ML 999 ML IV (10:18)
[2021-07-21] MEDS: morphine 4 mg/mL SDV 1 mL IVP (10:18)
[2021-07-21] MEDS: ondansetron 2 mg/ML SDV 2 mL 4 MG IVP (10:19)
[2021-07-21 10:23] VITALS: BP 137/85; PULSE 117; RESP 16; TEMP 36.6; O2SAT 93; BMI 36.5
[2021-07-21 10:25] LABS: Basophils # 0.1 10^3/uL (0.0-0.1); Basophils % 0.6 %; Eosinophils # 0.2 10^3/uL (0.0-0.8); Eosinophils % 1.1 %; Hematocrit 47.4 % (37.0-47.0); Hemoglobin 15.2 g/dL (11.5-15.3); Lymphocytes % 22.6 %; Mean Corpuscular HGB Conc 32.1 g/dL (30.0-36.0); Mean Corpuscular Hemoglobin 28.3 pg (28.0-34.0); Mean Corpuscular Volume 88.3 fl (81-99); Mean Platelet Volume 10.1 fL (7.4-10.4); Monocytes # 1.1 10^3/uL (0.2-0.9); Neutrophils # 9.04 10^3/uL (1.8-7.7); Neutrophils % 67.3 %; Nucleated Red Blood Cells % 0 %; Platelet Count 328 10^3/cmm (130-400); Red Blood Count 5.37 10^6/uL (4.1-5.3); Red Cell Distribution Width 13.1 % (12.1-15.1); White Blood Count 13.4 10^3/uL (4.0-10.0)
[2021-07-21 10:30] VITALS: BP 137/85; PULSE 116; RESP 16; O2SAT 98
[2021-07-21 10:43] LABS: Alanine Aminotransferase 18 U/L (0-33); Albumin Level 4.3 g/dL (3.5-5.2); Alkaline Phosphatase 125 IU/L (35-105); Aspartate Amino Transferase 19 U/L (0-32); Blood Urea Nitrogen 10 mg/dL (6-20); Calcium 10.2 mg/dL (8.5-10.5); Carbon Dioxide 23 mmol/L (22-29); Chloride 101 mmol/L (98-107); Globulin 4.4 g/dL (1.3-4.6); Glomerular Filtration Rate 88.9 mL/min (90-130); Glucose 94 mg/dL (65-115); Osmolality Calculated 283 mOsm/kg (285-295); Sodium 137 mmol/L (136-145); Total Bilirubin 0.6 mg/dL (0.15-1.2); Total Protein 8.7 g/dL (6.6-8.7)
[2021-07-21 10:45] LABS: Anion Gap 16.8 (5-19); Potassium 3.8 mmol/L (3.5-5.1)
[2021-07-21 10:46] LABS: Add Urine Microscopic? NO; Charge for UA Resulting for Rev
[2021-07-21 10:50] LABS: Bilirubin Urine Neg (Negative); Blood Urine Neg (Negative); Glucose Urine UA Norm (Normal); Ketones Urine Negative (Negative); Leukocyte Esterase Urine Negative (Negative); Nitrate Urine Negative (Negative); Protein Urine Neg (Negative); Urine Appearance Clear (CLEAR); Urine Color Yellow (Yellow); Urobilinogen Urine Norm (Negative); pH Urine 5 (5-7)
[2021-07-21 11:06] VITALS: BP 137/85; PULSE 98; RESP 16; O2SAT 93
[2021-07-21] MEDS: iohexol 300 mg/mL 100 mL Btl IV (11:51)
[2021-07-21 12:58] VITALS: BP 135/83; PULSE 102; RESP 16; O2SAT 96
== END 2021-07-21 13:04 | disposition home or self-care (01) ==
PROVIDERS: Emergency Provider Physician Assistant; PCP Nurse Practitioner Family
DX: K52.9 Noninfective gastroenteritis and colitis, unspecified (principal); Z79.84 Long term (current) use of oral hypoglycemic drugs; Z79.82 Long term (current) use of aspirin; Z86.73 Personal history of transient ischemic attack (TIA), and cerebral infarction without residual deficits; Z77.22 Contact with and (suspected) exposure to environmental tobacco smoke (acute) (chronic)
CPT/HCPCS: 74177; 80053; 81003; 85025; 96360; 96374; 96375; 99284; J2270; J2405; Q9967

== ENCOUNTER → 2021-07-28 08:01 | Outpatient (BNVA) | payer MEDICAID, SELFPAY | PROVIDERS: PCP Nurse Practitioner Family; Visit Provider Social Worker Clinical | DX: F33.1 Major depressive disorder, recurrent, moderate (principal) | CPT/HCPCS: 90834 ==

== ENCOUNTER 2021-07-28 09:06 | Outpatient (CLI) | payer MEDICAID, SELFPAY ==
[2021-07-28 10:13] LABS: Chol HDL Ratio 6.52 mg/dL (0.0-4.40); Cholesterol 189 mg/dL (0-200); Free T4 Free Thyroxine 0.89 ng/dL (0.82-1.77); HDL Cholesterol 29 mg/dL (60-100); LDL Cholesterol Calculated 125 mg/dL (50-129); LDL HDL Ratio 4.31 RATIO (0.00-3.22); Thyroid Stimulating Hormone 2.89 uIU/mL (0.27-4.20); Triglycerides 177 mg/dL (0-150)
[2021-07-28 10:38] LABS: Estmated Average Glucose 117; Hemoglobin A1C 5.7 % (4.0-6.0)
== END 2021-07-28 09:07 | disposition home or self-care (01) ==
LOC: LAB 09:09
PROVIDERS: PCP Nurse Practitioner Family; Visit Provider Internal Medicine
DX: R73.03 Prediabetes (principal); R60.9 Edema, unspecified; R63.5 Abnormal weight gain; Z79.84 Long term (current) use of oral hypoglycemic drugs
CPT/HCPCS: 36415; 80061; 83036; 84439; 84443; 90834; 99214

== ENCOUNTER → 2021-08-04 09:19 | Outpatient (BNVA) | payer MEDICAID, SELFPAY | PROVIDERS: PCP Nurse Practitioner Family; Visit Provider Nurse Practitioner Psychiatric/Mental Health | DX: F32.4 Major depressive disorder, single episode, in partial remission (principal) | CPT/HCPCS: 99213 ==

== ENCOUNTER 2021-08-11 15:27 | Observation (INO) | payer MEDICAID, SELFPAY ==
[2021-08-11 15:38] VITALS: BP 140/90; PULSE 118; RESP 18; TEMP 36.9; O2SAT 96; BMI 36.7
--- NOTE | 2021-08-11 15:42 | ECG_ITS ---
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 Measurements Intervals [place] Rate: 107 P: 58 RI: 170 QRS: 45 QRSD: 78 T: 60 QT: 319 QTc: 427 Interpretive Statements SINUS TACHYCARDIA NONSPECIFIC T-WAVE ABNORMALITY Compared to ECG 08/05/2020 21:49:16 Sinus rhythm no longer present Possible ischemia no longer present T-wave abnormality still present Electronically Signed On 08-11-2021 21:02:23 CDT by Frank Carson M.D. [email or web address] [email or web address] mississippi medical centerIntelclinicacmc healthcare system [email or web address]/[id number]
--- NOTE | 2021-08-11 15:42 | XRR_ITS ---
PROCEDURE INFORMATION: Exam: XR Chest Exam date and time: 08/11/2021 3:42 PM Age: 50 years old Clinical indication: Left-sided; Patient HX: Left sided chest pain starting last Wednesday TECHNIQUE: Imaging protocol: XR of the chest. Views: 1 view. COMPARISON: CR XR chest 1V portable [id number] 08/05/2020 9:37 PM FINDINGS: Lungs: Unremarkable. No consolidation. Pleural spaces: Unremarkable. No pleural effusion. No pneumothorax. Heart/Mediastinum: Unremarkable. No cardiomegaly. Bones/joints: Unremarkable. XR/XR chest 1V portable [id number] IMPRESSION: No acute findings.
--- NOTE | 2021-08-11 17:42 | ECG_ITS ---
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 Measurements Intervals [place] Rate: 101 P: 57 WI: 188 QRS: 39 QRSD: 84 T: 62 QT: 344 QTc: 447 Interpretive Statements SINUS TACHYCARDIA NONSPECIFIC T-WAVE ABNORMALITY Compared to ECG 08/11/2021 15:43:08 No significant changes Electronically Signed On 08-11-2021 21:11:59 CDT by Frank Carson M.D. [email or web address] [email or web address] memorial hospitalAdvanced Cell Technologyohiohealth mansfield hospitalPeridrome Corporation/store/OM/[id number]
[2021-08-11 17:51] LABS: Add Urine Microscopic? NO; Charge for UA Resulting for Rev
[2021-08-11 18:00] LABS: Bilirubin Urine Neg (Negative); Blood Urine Neg (Negative); Glucose Urine UA Norm (Normal); Ketones Urine Negative (Negative); Leukocyte Esterase Urine Negative (Negative); Nitrate Urine Negative (Negative); Protein Urine Neg (Negative); Urine Appearance Clear (CLEAR); Urine Color Yellow (Yellow); Urobilinogen Urine 4 mg/dL (Negative); pH Urine 5 (5-7)
--- NOTE | 2021-08-11 18:09 | ED_ITS ---
HPI - Chest Pain General: Chief Complaint: Chest Pain Stated Complaint: CP Time Seen by Provider: 08/11/21 18:09 History of Present Illness: Ms. Veloz is a 50-year-old lady with significant past medical history of COPD, diabetes who presents to the emergency department due to chest discomfort. She endorses onset of symptoms without known provoking factor approximately 1 week ago. Since that time she has had constant discomfort which has migrated. Initially this was primarily in the right shoulder and down the right arm however now includes the left arm as well. She does have mild associated shortness of breath but no other infectious symptoms or specific cardiac features. She has had similar episodes in the past and a number of years ago had cardiac cath which revealed small blood vessels however no stents were deployed. Overall intensity symptoms is moderate. C ourse has persisted. She tried nitroglycerin and Tylenol with no significant relief. No other significant changes in health, exacerbating, or provoking factors identified. Onset (ago): day(s) Timing of current episode: constant and increasing Prior episodes: Yes (Many years ago) Onset: during rest Severity: moderate Quality: aching and sharp (Occasionally) Relieving factors: nothing Exacerbating factors: nothing Review of Systems General: Reports: 10 or more systems reviewed and unremarkable except in HPI and below PFSH ED PFSH: Medical History CVA (cerebral vascular accident) Depression Major depressive disorder in partial remission Major depressive disorder, recurrent, moderate YAIR (obstructive sleep apnea) Psychiatric care Shortness of breath Surgical History H/O laparoscopy H/O: hysterectomy History of cholecystectomy History of tubal ligation Hx of oophorectomy Family History Father CAD (coronary artery disease) Cancer Diabetes Hyperlipidemia Mother Hypertension Psychiatric illness Brother Hypertension Denies family history of Clotting disorder Dementia Chronic kidney disease (CKD) Suicide Anesthesia complication Bleeding disorder Family history of premature coronary artery disease Lung disease Stroke Social History Smoking and tobacco status: never smoked Second hand smoke exposure: Yes Alcohol intake: current Alcohol intake frequency: holidays/special occasions only Alcohol type: other Lives independently: Yes Household members: family and children Marital status: Single service: No Current occupational status: employed Current occupation: [employer] Current occupational exposures/hazards: No History of recent travel: No Current gender identity: Female Special clint needs: No Agree to transfusion: Yes Physical Exam Const: COMMON NORMALS: alert GENERAL APPEARANCE: cooperative and well developed NUTRITIONAL APPEARANCE: obese HENMT: COMMON NORMALS: normocephalic and atraumatic HEAD & SCALP: normocephalic and atraumatic Eye: COMMON NORMALS: conjunctivae normal CONJUNCTIVA: Yes conjunctivae normal SCLERA: sclerae normal Neck/C-Spine: COMMON NORMALS: supple GENERAL: Yes trachea midline Resp: COMMON NORMALS: normal respiratory effort and clear to auscultation bilaterally EFFORT & INSPECTION: Yes able to speak in complete sentences AUSCULTATION: clear to auscultation bilaterally Cardio: COMMON NORMALS: regular rhythm RATE: tachycardic RHYTHM: regular rhythm GI: COMMON NORMALS: Soft to palpation PALPATION: Yes Soft to palpation and No Tenderness to palpation present (GI) PERCUSSION: normal to percussion Extremity: GENERAL: Yes normal exam except as noted and No edema Neuro: COMMON NORMALS: moves all extremities SENSORIUM/ORIENTATION: Yes alert and No Orientation impaired Psych: COMMON NORMALS: mental status grossly normal and Normal thought process present THOUGHT PROCESS: Normal thought process present Course ED course: - Patient was seen and evaluated by me at bedside - Patient placed on cardiac monitors, IV access obtained - Initial evaluation notable for exam as above -Aspirin, fluids, analgesia given - Labs notable for no leukocytosis, likely hemoconcentration. No acute electrolyte derangement. Delta troponin is negative with initial negative troponin. - Imaging notable for no acute finding on chest x-ray to explain symptoms - Upon serial reexamination after treatment the patient was similar to mildly improved - Based on patient history, evaluation, labs, and imaging as interpreted the most likely cause of the patient's condition is chest pain. - The results of ED evaluation were discussed with the patient including possible disposition options. I explained heart score methodology and risk ratification. Patient is moderate risk by heart score and therefore qualifies for inpatient stress test. I offered admission for stress test versus outpatient follow-up and the patient is uncomfortable with outpatient follow-up. - Hospitalist service contacted and agreed admit the patient. - Patient was admitted without further deterioration or significant events. Note: Click bubbles or prepopulated colon in note writing are used for assistance with data collection and billing and are inherently more limited than narrative and other text portions of this note. Please use narrative for additional clinical history and defer to narrative/free test for any case of contradictory information. If information appears in only free text or click bubble it should be considered present or absent as reported. Please contact note real estate underwriter for clarifications of clinical information or contradictory information. MDM is a brief summary, contradictory or erroneous seeming information should be clarified and full note should be reviewed. Vital Signs: Vital signs: Vital Signs Temperature 97.5 F L 08/13/21 07:08 Pulse Rate 94 08/13/21 14:12 Respiratory Rate 24 H 08/13/21 14:12 Blood Pressure 122/88 08/13/21 14:12 Pulse Oximetry 94 08/13/21 14:12 MDM - Chest Pain Medical Decision Making 50-year-old lady presenting with chest pain. Patient is moderate risk by heart score. Troponin and EKG negative for acute ischemic change. Offered admission for stress test further outpatient stress test. Patient uncomfortable with dis charge and prefers inpatient stress test which is given heart score. Admitted for further cardiac evaluation. Medical Records I reviewed the patient's medical records. Lab Data I reviewed the patient's lab results. : 08/13/21 04:03 08/13/21 04:03 Radiology Impressions Chest X-Ray 08/11/21 15:42 IMPRESSION: No acute findings. Barium Swallow X-Ray 08/13/21 04:00 IMPRESSION: No tertiary contractions of the esophagus identified. Small reducible hiatal hernia without reflux or obstruction. Pylorospasm. Laboratory Results WBC 9.4 10^3/uL (4.0-10.0) 08/11/21 20:27 Corrected WBC Cancelled 08/11/21 18:45 RBC 5.58 10^6/uL (4.1-5.3) H 08/11/21 20:27 Hgb 15.9 g/dL (11.5-15.3) H 08/11/21 20:27 Hct 52.2 % (37.0-47.0) H 08/11/21 20:27 MCV 93.5 fl (81-99) 08/11/21: MCH 28.5 pg (28.0-34.0) 08/11/21: MCHC 30.5 g/dL (30.0-36.0) 08/11/21 RDW 13.5 % (12.1-15.1) 08/11/21: Plt Count 237 10^3/cmm (130-400) 08/11/21 MPV 10.6 fL (7.4-10.4) H 08/11/21: Gran % Cancelled 08/11/21 18:45 Neut % (Auto) 62.2 % 08/11/21: Lymph % (Auto) 26.0 % 08/11/21 [place] % (Auto) 8.3 % 08/11/21 Eos % (Auto) 2.4 % 08/11/21 Baso % (Auto) 0.9 % 08/11/21 Neut # (Auto) 5.85 10^3/uL (1.8-7.7) 08/11/21 Lymph # (Auto) 2.4 10^3/uL (0.8-4.8) 08/11/21 [place] # (Auto) 0.8 10^3/uL (0.2-0.9) 08/11/21 Eos # (Auto) 0.2 10^3/uL (0.0-0.8) 08/11/21 Baso # (Auto) 0.1 10^3/uL (0.0-0.1) 08/11/21 Absolute Gran (auto) Cancelled 08/11/21 18:45 Nucleated RBC % (auto) 0 % 08/11/21 Nucleated RBCs # 0.0 /100WBC 08/11/21: Sodium 141 mmol/L (136-145) 08/11/21 18:45 Potassium 3.9 mmol/L (3.5-5.1) 08/11/21 18:45 Chloride 103 mmol/L (98-107) 08/11/21 18:45 Carbon Dioxide 26 mmol/L (22-29) 08/11/21 18:45 Anion Gap 15.9 (5-19) 08/11/21 18:45 BUN 13 mg/dL (6-20) 08/11/21 18:45 Creatinine 0.6 mg/dL (0.5-0.9) 08/11/21 18:45 GFR Calculation 106.3 mL/min (90-130) 08/11/21 18:45 Glucose 103 mg/dL (65-115) 08/11/21 18:45 Calculated Osmolality 292 mOsm/kg (285-295) 08/11/21 18:45 Calcium 9.2 mg/dL (8.5-10.5) 08/11/21 18:45 Total Bilirubin 0.3 mg/dL (0.15-1.2) 08/11/21 18:45 AST 28 U/L (0-32) 08/11/21 18:45 ALT 26 U/L (0-33) 08/11/21 18:45 Alkaline Phosphatase 122 IU/L (35-105) H 08/11/21 18:45 Troponin T Baseline 6 ng/L (0-10) 08/11/21 18:45 Troponin T 120 Minute 6.00 ng/L (0-10) 08/11/21 20:27 Delta Troponin T 0 ABS# (0-10) 08/11/21 20:27 Total Protein 8.4 g/dL (6.6-8.7) 08/11/21 18:45 Albumin 4.3 g/dL (3.5-5.2) 08/11/21 18:45 Globulin 4.1 g/dL (1.3-4.6) 08/11/21 18:45 Urine Color Yellow (Yellow) 08/11/21 17:46 Urine Appearance Clear (CLEAR) 08/11/21 17:46 Urine pH 5 (5-7) 08/11/21 17:46 Ur Specific [place] 1.030 (1.005-1.030) 08/11/21 17:46 Urine Protein Neg (Negative) 08/11/21 17:46 Urine Glucose (UA) Norm (Normal) 08/11/21 17:46 Urine Ketones Negative (Negative) 08/11/21 17:46 Urine Blood Neg (Negative) 08/11/21 17:46 Urine Nitrate Negative (Negative) 08/11/21 17:46 Urine Bilirubin Neg (Negative) 08/11/21 17:46 Urine Urobilinogen 4 mg/dL (Negative) H 08/11/21 17:46 Ur Leukocyte Esterase Negative (Negative) 08/11/21 17:46 EKG Data EKG 1: I personally reviewed and interpreted this EKG as follows: EKG interpretation date: 08/11/21 EKG interpretation time: 17:27 Interpretation: Twelve-lead EKG shows a regular rhythm at a rate of 101. MO interval 188, QRS duration 84, QTc 402. Normal axis. Interpretation: Sinus rhythm. Tachycardia. Nonspecific ST segment abnormalities. EKG 2: I personally reviewed and interpreted this EKG as follows: EKG interpretation date: 08/11/21 EKG interpretation time: 22:35 Interpretation: Twelve-lead EKG shows a regular rhythm at a rate of 92. MO interval 191, QRS duration 89, QTc 394. Normal axis. Interpretation: Sinus rhythm. Nonspecific ST segment abnormalities. Discharge Plan Discharge Patient Disposition: Placed in Observation Admit Provider: Juan José De La Rosa Clinical Impression: Chest pain Discharge Diet: GI Soft Discharge Activity: Increase activity as tolerated Coding Level of Care Code ED Pediatric Dietician for Chg Fwd Exam Comprehensive
[2021-08-11 18:16] VITALS: BP 122/88; PULSE 102; RESP 22; O2SAT 96
[2021-08-11] MEDS: aspirin 81 mg Chew Tablet 324 MG PO (18:44)
[2021-08-11 18:49] VITALS: BP 126/85; PULSE 104; RESP 27; O2SAT 96
[2021-08-11 18:51] VITALS: RESP 19; O2SAT 95
[2021-08-11] MEDS: fentaNYL 50 mcg/mL INJ 2mL IVP (18:51)
[2021-08-11 19:37] LABS: Troponin(5th) Baseline 6 ng/L (0-10)
[2021-08-11 19:38] LABS: Alanine Aminotransferase 26 U/L (0-33); Albumin Level 4.3 g/dL (3.5-5.2); Alkaline Phosphatase 122 IU/L (35-105); Anion Gap 15.9 (5-19); Aspartate Amino Transferase 28 U/L (0-32); Blood Urea Nitrogen 13 mg/dL (6-20); Calcium 9.2 mg/dL (8.5-10.5); Carbon Dioxide 26 mmol/L (22-29); Chloride 103 mmol/L (98-107); Globulin 4.1 g/dL (1.3-4.6); Glomerular Filtration Rate 106.3 mL/min (90-130); Glucose 103 mg/dL (65-115); Osmolality Calculated 292 mOsm/kg (285-295); Potassium 3.9 mmol/L (3.5-5.1); Sodium 141 mmol/L (136-145); Total Bilirubin 0.3 mg/dL (0.15-1.2); Total Protein 8.4 g/dL (6.6-8.7)
[2021-08-11 20:57] LABS: Basophils # 0.1 10^3/uL (0.0-0.1); Basophils % 0.9 %; Eosinophils # 0.2 10^3/uL (0.0-0.8); Eosinophils % 2.4 %; Hematocrit 52.2 % (37.0-47.0); Hemoglobin 15.9 g/dL (11.5-15.3); Lymphocytes # 2.4 10^3/uL (0.8-4.8); Mean Corpuscular HGB Conc 30.5 g/dL (30.0-36.0); Mean Corpuscular Hemoglobin 28.5 pg (28.0-34.0); Mean Corpuscular Volume 93.5 fl (81-99); Mean Platelet Volume 10.6 fL (7.4-10.4); Monocytes # 0.8 10^3/uL (0.2-0.9); Monocytes % 8.3 %; Neutrophils # 5.85 10^3/uL (1.8-7.7); Neutrophils % 62.2 %; Nucleated Red Blood Cells % 0 %; Platelet Count 237 10^3/cmm (130-400); Red Blood Count 5.58 10^6/uL (4.1-5.3); Red Cell Distribution Width 13.5 % (12.1-15.1); White Blood Count 9.4 10^3/uL (4.0-10.0)
[2021-08-11] MEDS: sodium chloride 0.9% 1,000 ML 999 ML IV (21:06)
[2021-08-11 21:29] LABS: Troponin 5 2HR Delta 0 ABS# (0-10)
--- NOTE | 2021-08-11 21:42 | ECG_ITS ---
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 Measurements Intervals [place] Rate: 92 P: 58 [place]: 191 QRS: 39 QRSD: 89 T: 58 QT: 345 QTc: 427 Interpretive Statements SINUS RHYTHM LOW QRS VOLTAGE IN PRECORDIAL LEADS [QRS DEFLECTION < 1.0 mV IN CHEST LEADS] NONSPECIFIC T-WAVE ABNORMALITY Compared to ECG 08/11/2021 17:20:40 Low QRS voltage now present Sinus tachycardia no longer present T-wave abnormality still present Electronically Signed On 08-13-2021 20:29:20 CDT by Frank Carson M.D. [id number]
[2021-08-11 23:02] LABS: D Dimer 0.32 ug/mIFEU (0-0.59)
[2021-08-12] VITALS (42 sets, daily range): BP systolic 101–146; BP diastolic 63–98; PULSE 79–112; RESP 14–29; TEMP 36.5–36.9; O2SAT 91–97
--- NOTE | 2021-08-12 00:39 | USCV_ITS ---
Gale Veloz Age: 50 Gender: F : 1970 Exam Date: 08/12/2021 06:13 Ordering Phys: Juan José De La Rosa MD Technologist: ANTON Exam Location: [facility] [place] Indication: Chest Pain BP: 111 / 63 HR: 89 Rhythm: Sinus Technical Quality: Technically difficult study MEASUREMENTS (Male / Female) Normal Values 2D ECHO LV Diastolic Diameter PLAX 4.9 cm 4.2 - 5.9 / 3.9 - 5.3 cm LV Systolic Diameter PLAX 3.1 cm IVS Diastolic Thickness 1.1 cm 0.6 - 1.0 / 0.6 - 0.9 cm IVS Systolic Thickness 1.2 cm LVPW Diastolic Thickness 1.0 cm 0.6 - 1.0 / 0.6 - 0.9 cm LVPW Systolic Thickness 1.5 cm LVOT Diameter 2.0 cm LV Ejection Fraction 2D Teich 65.3 % LV Ejection Fraction MOD 2C 58.4 % LV Ejection Fraction 2C AL 59.5 % LA Diameter 3.0 cm Aorta at Sinotubular Diameter 2.1 cm M-MODE Aortic Annulus Diameter 2.9 cm LA Ao Ratio MM 1.0 MV E Point Septal Separation 0.5 cm DOPPLER AV Peak Velocity 120.0 cm/s LVOT Peak Velocity 68.0 cm/s AV Area Cont Eq vti 1.7 cm squared AV Area Cont Eq pk 1.8 cm squared MV Area PHT 5.0 cm squared MV E' Velocity 83.0 cm/s TR Peak Velocity 277.0 cm/s TR Peak Gradient 30.7 mmHg TV Peak E Velocity 35.0 cm/s Right Atrial Pressure 3.0 mmHg Pulmonary Artery Systolic Pressu 33.7 mmHg PV Peak Velocity 67.0 cm/s RV Acceleration Time 0.1 s RV Ejection Time 0.3 s RV AcT/ET 0.4 FINDINGS Left Ventricle Normal left ventricular size. LV systolic function is normal with EF of 55-60%. No regional wall motion abnormalities. Right Ventricle The right ventricle is normal in size and function. Right Atrium The right atrium is normal in size. Left Atrium The left atrium is normal in size. Mitral Valve Grossly normal. Mild mitral regurgitation Aortic Valve Not well-visualized. No significant aortic stenosis or regurgitation. Tricuspid Valve Grossly normal. Trace tricuspid regurgitation. Normal RV systolic pressure. Pulmonic Valve Not visualized Pericardium Normal pericardium without effusion. Aorta Normal ascending aorta dimension. CONCLUSIONS Technically limited quality echocardiogram because of poor ultrasonic windows. LV systolic function is normal with EF of 55 to 60%. Valvular structures are not well visualized however no gross abnormalities. Compared to prior echocardiogram from 05/10/2014, no significant changes are seen. However accurate comparison not possible because of poor ultrasonic windows. Patient refused contrast Frank Carson MD (Electronically Signed) Final Date: 13 August 2021 07:59 S
[2021-08-12] MEDS: enoxaparin 100 mg/mL Syringe 90 MG SUBCUT (01:10)
[2021-08-12] MEDS: nitroglycerin 0.4 mg sublingual Tablet SUBLINGUAL ×3 (01:11→01:22)
--- NOTE | 2021-08-12 01:26 | PM.HP ---
Providers/Chief Complaint Admitting Physician: Juan José De La Rosa Primary Care Provider: JEFFERY Boone Chief Complaint: CP History of Present Illness Pleasant 50-year-old lady with history of CVA, diabetes, chest pain previously with assessment by angiography with normal coronaries in 2017, with endothelial dysfunction with sluggish flow, reports history of CAD with her father passing of [place] at age of 66, with chronic chest pain, with chest pain on the right side over the past week, radiating toward the left, but this morning she reports having to take aspirin and nitroglycerin due to chest pain on the left, numbness of the left arm radiating to the pinky, and she states she felt her heartbeat in her neck, reports also felt like her heart was going fast. She states she felt like she was having a heart attack, decided to come in to ER. She states that nitroglycerin did not relieve her symptoms. Currently she is rating her pain a 7/10. She denies any history of arrhythmia. In ER chest x-ray is unremarkable. Noted sinus tachycardia, heart rate 102-110. She denies any recent immobility. D-dimer was assessed and was not elevated. Baseline troponin , 2-hour troponin without change. She states her father's tests were normal when he of a heart attack at age 66. She also does report that she had had a prior history of trouble swallowing, pain on swallowing for which she had undergone EGD in the past. She is not sure that there was anything abnormal on the EGD. Reports she had been having more trouble swallowing recently as well, and considering talking to her primary doctor for arrangement of additional testing. She does not feel her current symptoms were related to this. Review of Systems Const: Denies: fever(s), chills, body aches or malaise Eyes: Denies: change in vision or eye redness ENMT: Denies: throat pain, oral sores or ear or mastoid pain Card: Reports: chest pain (Not positional); Denies: edema, pre-syncope or dyspnea on exertion Resp: Reports: other (can't catch a deep breath); Denies: dyspnea, productive cough, change in phlegm color or hemoptysis GI: Denies: abdominal pain, nausea, vomiting, diarrhea, constipation, hematochezia or melena : Denies: flank pain, urinary frequency or hematuria Musc: Denies: back pain, joint swelling or joint redness Skin/Breast: Denies: rash, sores or new lesions Neuro: Reports: numbness in extremities (L arm/pinky, denies numbness or weakness elsewhere); Denies: headache(s), weakness in extremities, lack of coordination, difficulty walking, dizziness, vertigo, confusion, Slurred speech present, difficulty communicating thoughts, seizure-like activity, involuntary movements or restless legs Endo: Denies: polyuria or polydipsia Sushil/Lymph: Denies: easy bleeding or purpura All/Imm: Denies: urticaria, throat swelling or tongue swelling Medications/Allergies Home Medications Medication Instructions Recorded Confirmed Last Taken Type fluticasone propionate 50 2 spray INTRANASAL DAILY #15.8 ml 05/08/20 08/11/21 08/11/21 Rx mcg/actuation nasal spray,suspension (Flonase Allergy Relief) blood sugar diagnostic (Blood #100 ea 09/03/20 08/11/21 Unknown Rx Glucose Test) blood-glucose meter (Blood Glucose #1 ea 09/03/20 08/11/21 Unknown Rx Monitoring) lancets 33 gauge (BD Ultra Fine #100 ea 09/03/20 08/11/21 Unknown Rx Lancets) nitroglycerin 0.4 mg sublingual 0.4 mg SUBLINGUAL Q5M PRN #25 tab 10/09/20 08/11/21 08/11/21 Rx tablet (Nitrostat) albuterol sulfate 2.5 mg (3 mL) INHALATION QID PRN 12/16/20 08/11/21 Unknown Rx #180 ml albuterol sulfate 90 mcg/actuation 2 inh INHALATION Q6H PRN #1 each 12/16/20 08/11/21 08/11/21 Rx breath activated powder inhaler budesonide-formoterol HFA 80 2 puff INHALATION Q12H 30 Days 12/16/20 08/11/21 08/11/21 Rx mcg-4.5 mcg/actuation aerosol #10.2 gm inhaler (Symbicort) oxybutynin chloride 10 mg 10 mg PO DAILY #90 tab 12/16/20 08/11/21 08/11/21 Rx tablet,extended release 24 hr tiotropium bromide 18 mcg capsule 1 cap INHALATION DAILY@07 #90 inh 03/10/21 08/11/21 08/11/21 Rx with inhalation device (Spiriva with HandiHaler) liraglutide 0.6 mg/0.1 mL (18 mg/3 1.8 mg (0.3 mL) SUBCUT DAILY #9 ml 04/29/21 08/11/21 08/11/21 Rx mL) subcutaneous pen injector (Club W 3-Rahul) polyethylene glycol 3350 17 17 g PO DAILY #238 g 05/01/21 08/11/21 Unknown Rx gram/dose oral powder (Miralax) pen needle, diabetic 32 gauge x #100 ea 05/02/21 08/11/21 Unknown Rx aspirin 81 mg tablet,delayed 81 mg PO DAILY 07/21/21 08/11/21 08/11/21 History release blood sugar diagnostic (OneTouch 07/21/21 08/11/21 Unknown History Ultra Test) metformin 500 mg tablet 500 mg PO DAILY 07/21/21 08/11/21 08/11/21 History ondansetron HCl 4 mg tablet 4 mg PO Q6H PRN #14 tab 07/21/21 08/11/21 Unknown Rx (Zofran) fluoxetine 20 mg/5 mL (4 mg/mL) 60 mg (15 mL) PO DAILY@07 #450 ml 08/04/21 08/11/21 08/11/21 Rx oral solution Allergies Allergy/AdvReac Type Severity Reaction Status Date / Time raspberry Allergy Severe closes up Verified 07/28/21 09:52 throat codeine Allergy ALGY-Difficulty Verified 07/28/21 09:52 Breathing Penicillins Allergy ALGY-Rash Verified 07/28/21 09:52 Sulfa (Sulfonamide Allergy ALGY-Rash Verified 07/28/21 09:52 Antibiotics) PFSH Acute PFSH: Medical History CVA (cerebral vascular accident) Depression Major depressive disorder in partial remission Major depressive disorder, recurrent, moderate YAIR (obstructive sleep apnea) Psychiatric care Shortness of breath Surgical History H/O laparoscopy H/O: hysterectomy History of cholecystectomy History of tubal ligation Hx of oophorectomy Family History Father CAD (coronary artery disease) Cancer Diabetes Hyperlipidemia Mother Hypertension Psychiatric illness Brother Hypertension Denies family history of Clotting disorder Dementia Chronic kidney disease (CKD) Suicide Anesthesia complication Bleeding disorder Family history of premature coronary artery disease Lung disease Stroke Social History Smoking and tobacco status: never smoked Second hand smoke exposure: Yes Alcohol intake: current Alcohol intake frequency: holidays/special occasions only Alcohol type: other Lives independently: Yes Household members: family and children Marital status: Single service: No Current occupational status: employed Current occupation: [employer] Current occupational exposures/hazards: No History of recent travel: No Current gender identity: Female Special clint needs: No Agree to transfusion: Yes Female Reproductive History: Date of last menstrual period: 08/12/21 Vitals/I&O/Wt Last Vital Signs Temp 97.9 F 08/12/21 00:12 Pulse 110 H 08/12/21 01:23 Resp 18 08/12/21 01:23 BP 113/72 08/12/21 01:23 Pulse Ox 91 08/12/21 01:23 Weight last 48 hrs Weight 89.539 kg Weight 85.275 kg Physical Exam Const: COMMON NORMALS: no acute distress and patient oriented x3 HENMT: COMMON NORMALS: oropharynx normal Neck/C-Spine: COMMON NORMALS: no JVD Resp: COMMON NORMALS: normal respiratory effort and clear to auscultation bilaterally EFFORT & INSPECTION: Yes able to speak in complete sentences AUSCULTATION: clear to auscultation bilaterally Cardio: COMMON NORMALS: no JVD, regular rhythm, S1 normal heart sound present, S2 normal heart sound present and No murmurs present (Cardio) RHYTHM: regular rhythm HEART SOUNDS: S1 normal heart sound present and S2 normal heart sound present GI: COMMON NORMALS: Normal to inspection, nondistended, normoactive bowel sounds present, Soft to palpation and non-tender PALPATION: Yes Soft to palpation Extremity: COMMON NORMALS: no joint enlargement and no pedal edema Neuro: COMMON NORMALS: patient oriented x3 and moves all extremities Skin: COMMON NORMALS: no rashes or lesions noted GENERAL SKIN EXAM: no rashes or lesions noted Data : 08/11/21 20:27 08/11/21 18:45 A&P Assessment and plan (1) Chest pain: Reports left-sided chest pain, currently 7/10, previously radiating to the left arm with numbness and pain of the left arm and fourth and fifth fingers. Reported feeling tachycardia and her heartbeat in her neck. Troponin currently normal as is 2-hour. Discussed with her. She does have history of diabetes, CVA, and family history of her father passing away of [place] at age 66 with normal testing. Prior angiogram in 2017 with normal coronaries, endothelial dysfunction. She had also had a stress test in 2019 which was normal. With low risk and normal D-dimer PE he is rather unlikely. She does not appear to have symptoms of pericarditis. Or symptoms of great vessel dissection. Will request BP in both arms. As she is currently continue to have symptoms, discussed with her possibility of unstable angina. Add Lovenox, continue aspirin, beta-alfonso, statin. Assess TTE. As she is currently having symptoms, for now we will not order stress test. For now added nitroglycerin, but if not relieved discussed with her may have to be moved to [facility] for nitro drip. Morphine as needed. If continues to be symptomatic and depending on further work-up may require cardiology assessment and consideration of invasive risk stratification. NPO for now. Status: Acute (2) Dysphagia: Reports intermittent odynophagia. Previously underwent EGD which she says did not find anything abnormal. Recently has been having symptoms of odynophagia again, although does not feel that it is related to her current symptoms above. Consider referral for additional assessment with barium swallow to start once cardiac issues are excluded. Status: Acute Plan Chronic alk phos elevation, 122. Follow-up as outpatient. Will request GGT Hx CVA (R side loss of sensation). DM2: SSI YAIR: CPAP nightly Other chronic medical problems noted Attestations Medical Necessity Statement*: Place in observation for additional assessment of chest pain. Coding Level of Care Code Acute Advertising Dispatch Clerks Supervisor for Toni Ramírez Diagnoses Chest pain R07.9 Dysphagia R13.10
[2021-08-12 02:17] LABS: Chol HDL Ratio 6.38 mg/dL (0.0-4.40); Cholesterol 185 mg/dL (0-200); HDL Cholesterol 29 mg/dL (60-100); LDL Cholesterol Calculated 130 mg/dL (50-129); LDL HDL Ratio 4.48 RATIO (0.00-3.22); Triglycerides 132 mg/dL (0-150)
[2021-08-12 02:22] LABS: Troponin 5 6HR Delta 0 ng/L (0-12)
[2021-08-12] MEDS: nitroglycerin drip 50 MG/250 ML PREMIX IV (02:28)
[2021-08-12 02:33] LABS: Gamma Glutamyl Transferase 52 U/L (5-36)
--- NOTE | 2021-08-12 04:20 | PC.NURSE ---
After giving Nitro SL x3 patient patient was still having chest pain. Notified Dr. De La Rosa and he ordered to start a nitroglycerin drip. Was not allowed to to titrate the Nitroglycerin but chest pain did resolve it's self after an 90mins on the drip.
[2021-08-12] MEDS: fluoxetine 20 mg Capsule 60 MG PO (06:13)
[2021-08-12 06:37] LABS: Glucose Point of Care 99 mg/dL (70-110)
[2021-08-12] MEDS: oxybutynin chloride XL 5 MG TABLET 10 MG PO (08:32)
[2021-08-12] MEDS: aspirin 325 mg Tablet PO (08:32)
[2021-08-12] MEDS: pantoprazole DR 40 mg Tablet PO (08:33)
[2021-08-12] MEDS: metoprolol tartrate 25 mg Tablet 12.5 MG PO ×2 (08:33→21:10)
[2021-08-12] MEDS: acetaminophen 325 mg Tablet 650 MG PO ×2 (08:33→21:10)
--- NOTE | 2021-08-12 08:59 | P.CONIM_ITS ---
Providers/Reason For Consult Consulting Physician/Specialty*: Frank Carson MD/ Cardiology Reason for Consult*: Unstable angina Requesting Physician: Dr De La Rosa Attending Physician: Donta Virgen MD Primary Care Provider: JEFFERY Boone History of Present Illness History of Present Illness Gale Veloz is a 50 year old female with past medical history of CVA, diabetes, family history of coronary artery disease presented to the hospital with chest pain on and off for 1 week. Yesterday morning she started noticing m ore significant chest pain radiating to the left side and left arm. She took aspirin and nitroglycerin however the pain did not resolve. She came to the hospital with that. She was put on nitroglycerin drip. According to patient that has improved her pain significantly. Her troponins have not increased. No significant ST-T wave changes on the EKG. Review of Systems Const: Denies: fever(s), chills, body aches or malaise Eyes: Denies: change in vision or eye redness ENMT: Denies: throat pain, oral sores or ear or mastoid pain Card: Reports: chest pain (Not positional); Denies: edema, pre-syncope or dyspnea on exertion Resp: Reports: other (can't catch a deep breath); Denies: dyspnea, productive cough, change in phlegm color or hemoptysis GI: Denies: abdominal pain, nausea, vomiting, diarrhea, constipation, hematochezia or melena : Denies: flank pain, urinary frequency or hematuria Musc: Denies: back pain, joint swelling or joint redness Skin/Breast: Denies: rash, sores or new lesions Neuro: Reports: numbness in extremities (L arm/pinky, denies numbness or weakness elsewhere); Denies: headache(s), weakness in extremities, lack of coordination, difficulty walking, dizziness, vertigo, confusion, Slurred speech present, difficulty communicating thoughts, seizure-like activity, involuntary movements or restless legs Endo: Denies: polyuria or polydipsia Sushil/Lymph: Denies: easy bleeding or purpura All/Imm: Denies: urticaria, throat swelling or tongue swelling Medications/Allergies Home Medications Medication Instructions Recorded Confirmed Last Taken Type fluticasone propionate 50 2 spray INTRANASAL DAILY #15.8 ml 05/08/20 08/11/21 08/11/21 Rx mcg/actuation nasal spray,suspension (Flonase Allergy Relief) blood sugar diagnostic (Blood #100 ea 09/03/20 08/11/21 Unknown Rx Glucose Test) blood-glucose meter (Blood Glucose #1 ea 09/03/20 08/11/21 Unknown Rx Monitoring) lancets 33 gauge (BD Ultra Fine #100 ea 09/03/20 08/11/21 Unknown Rx Lancets) nitroglycerin 0.4 mg sublingual 0.4 mg SUBLINGUAL Q5M PRN #25 tab 10/09/20 08/11/21 08/11/21 Rx tablet (Nitrostat) albuterol sulfate 2.5 mg (3 mL) INHALATION QID PRN 12/16/20 08/11/21 Unknown Rx #180 ml albuterol sulfate 90 mcg/actuation 2 inh INHALATION Q6H PRN #1 each 12/16/20 08/11/21 08/11/21 Rx breath activated powder inhaler budesonide-formoterol HFA 80 2 puff INHALATION Q12H 30 Days 12/16/20 08/11/21 08/11/21 Rx mcg-4.5 mcg/actuation aerosol #10.2 gm inhaler (Symbicort) oxybutynin chloride 10 mg 10 mg PO DAILY #90 tab 12/16/20 08/11/21 08/11/21 Rx tablet,extended release 24 hr tiotropium bromide 18 mcg capsule 1 cap INHALATION DAILY@07 #90 inh 03/10/21 08/11/21 08/11/21 Rx with inhalation device (Spiriva with HandiHaler) liraglutide 0.6 mg/0.1 mL (18 mg/3 1.8 mg (0.3 mL) SUBCUT DAILY #9 ml 04/29/21 08/11/21 08/11/21 Rx mL) subcutaneous pen injector ([employer] 3-Rahul) polyethylene glycol 3350 17 17 g PO DAILY #238 g 05/01/21 08/11/21 Unknown Rx gram/dose oral powder (Miralax) pen needle, diabetic 32 gauge x #100 ea 05/02/21 08/11/21 Unknown Rx aspirin 81 mg tablet,delayed 81 mg PO DAILY 07/21/21 08/11/21 08/11/21 History release blood sugar diagnostic (OneTouch 07/21/21 08/11/21 Unknown History Ultra Test) metformin 500 mg tablet 500 mg PO DAILY 07/21/21 08/11/21 08/11/21 History ondansetron HCl 4 mg tablet 4 mg PO Q6H PRN #14 tab 07/21/21 08/11/21 Unknown Rx (Zofran) fluoxetine 20 mg/5 mL (4 mg/mL) 60 mg (15 mL) PO DAILY@07 #450 ml 08/04/21 08/11/21 08/11/21 Rx oral solution Allergies Allergy/AdvReac Type Severity Reaction Status Date / Time raspberry Allergy Severe closes up Verified 07/28/21 09:52 throat codeine Allergy ALGY-Difficulty Verified 07/28/21 09:52 Breathing Penicillins Allergy ALGY-Rash Verified 07/28/21 09:52 Sulfa (Sulfonamide Allergy ALGY-Rash Verified 07/28/21 09:52 Antibiotics) Current Medications Generic Name Dose Route Start Last Admin [facility] Reason Stop Dose Admin Acetaminophen 650 mg 08/12/21 01:39 08/12/21 08:33 Acetaminophen 325 Mg Tablet PO 650 mg Q6H PRN Administration Mild/Mod Pain Or Temp >/= 101 Aspirin 325 mg 08/12/21 09:00 08/12/21 08:32 Aspirin 325 Mg Tablet PO 325 mg DAILY HUA Administration Enoxaparin Sodium 90 mg 08/12/21 01:00 08/12/21 01:10 Enoxaparin 100 Mg/Ml Syringe 1 mg/kg (90 mg) 90 mg SUBCUT Administration Q12H [facility] Fluoxetine HCl 60 mg 08/12/21 07:00 08/12/21 06:13 Fluoxetine 20 Mg Capsule PO 60 mg DAILY@07 HUA Administration Fluticasone Propionate 2 spray 08/12/21 09:00 08/12/21 08:34 Fluticasone Nasal [place] 16gm Btl INTRANASAL Not Given DAILY [facility] Nitroglycerin/Dextrose 50 mg in 250 mls @ 0.025 mls/min 08/12/21 02:00 08/12/21 02:28 Nitroglycerin Drip IV 0.03 mls/min CONT HUA Administration Insulin Human Lispro 0 unit 08/12/21 08:00 08/12/21 08:19 Insulin Lispro 100 Unit/1 Ml SUBCUT Not Given WM&BEDTIME [facility]UA Protocol Metoprolol Tartrate 12.5 mg 08/12/21 09:00 08/12/21 08:33 Metoprolol Tartrate 25 Mg Tablet PO 12.5 mg BID@0900,2100 [facility]UA Administration Nitroglycerin 0.4 mg 08/12/21 00:39 08/12/21 01:22 Nitroglycerin 0.4 Mg Sublingual Tablet SUBLINGUAL 0.4 mg Q5M PRN Administration CHEST PAIN Oxybutynin Chloride 10 mg 08/12/21 09:00 08/12/21 08:32 Oxybutynin Chloride Xl 5 Mg Tablet PO 10 mg DAILY [facility]UA Administration Pantoprazole Sodium 40 mg 08/12/21 09:00 08/12/21 08:[address] 40 Mg Tablet PO 40 mg DAILY HUA Administration Polyethylene Glycol 17 gm 08/12/21 09:00 08/12/21 08:35 Polyethylene Glycol 3350 Pkt 17 Gm PO Not Given DAILY HUA PFSH Acute PFSH: Medical History CVA (cerebral vascular accident) Depression Major depressive disorder in partial remission Major depressive disorder, recurrent, moderate YAIR (obstructive sleep apnea) Psychiatric care Shortness of breath Surgical History H/O laparoscopy H/O: hysterectomy History of cholecystectomy History of tubal ligation Hx of oophorectomy Family History Father CAD (coronary artery disease) Cancer Diabetes Hyperlipidemia Mother Hypertension Psychiatric illness Brother Hypertension Denies family history of Clotting disorder Dementia Chronic kidney disease (CKD) Suicide Anesthesia complication Bleeding disorder Family history of premature coronary artery disease Lung disease Stroke Social History Smoking and tobacco status: never smoked Second hand smoke exposure: Yes Alcohol intake: current Alcohol intake frequency: holidays/special occasions only Alcohol type: other Lives independently: Yes Household members: family and children Marital status: Single service: No Current occupational status: employed Current occupation: [employer] Current occupational exposures/hazards: No History of recent travel: No Current gender identity: Female Special clint needs: No Agree to transfusion: Yes Female Reproductive History: Date of last menstrual period: 08/12/21 Vitals/I&O/Wt Last Vital Signs Temp 97.7 F 08/12/21 07:03 Pulse 97 08/12/21 07:03 Resp 16 08/12/21 07:03 BP 129/80 08/12/21 07:03 Pulse Ox 96 08/12/21 07:03 08/11/21 08/12/21 08/12/21 22:59 06:59 14:59 Output Total 260 / 260 Balance -260 / -260 Weight last 48 hrs Weight 197 lb 6.4 oz Weight 188 lb Physical Exam Narrative: GENERAL: Patient is alert, awake and oriented x3. [] NECK: No jugular vein distension. [] HEENT: No cyanosis. No icterus. No pallor. [] HEART: Regular S1 and S2. No murmur, rub or gallop. [] LUNGS: Clear to auscultate bilaterally. [] ABDOMEN: Soft, nontender and nondistended. Positive bowel sounds. No guarding, rebound or tenderness. [] CENTRAL NERVOUS SYSTEM: Grossly nonfocal. [] EXTREMITIES: Lower extremities with 1+ edema bilaterally. Pulses palpable in the lower extremities, both dorsalis pedis and posterior tibial. [] Data : 08/11/21 20:27 08/11/21 18:45 A&P Assessment and plan (1) Chest pain: Status: Acute (2) COPD (chronic obstructive pulmonary disease): Status: Acute (3) YAIR (obstructive sleep apnea): Status: Acute Plan Patient has presented with worsening chest pain symptoms over the last 1 week. She says nitroglycerin drip has improved it. Troponins are negative. EKG not suggestive of significant ST-T wave changes. Given her risk factors and worsening chest pain concerning for worsening/unstable angina, improving with nitroglycerin, we will proceed with coronary angiogram with possible percutaneous coronary intervention. I had a detailed discussion regarding risk and benefits of the procedure. She understands the risks and benefits and wants to proceed with the procedure. N.p.o. for now. Order echocardiogram. Continue aspirin. Thank you for involving us with care of this patient. We will continue to follow. Please call with questions. Coding Level of Care Code Acute Customer Supply Coordinator for Chg Fwd Diagnoses Chest pain R07.9 COPD (chronic obstructive pulmonary disease) J44.9 YAIR (obstructive sleep apnea) G47.33
--- NOTE | 2021-08-12 09:35 | PM.MISC ---
Miscellaneous Note Note: Patient was seen and examined with nitroglycerin gtt. patient is stating that her pain has decreased intensity from 8 down to 1 20 17 nonobstructive coronary disease as per patient Patient is lying supine N.p.o. Obese Nonfocal neuro exam Saturating well on room air Chest pain 1/10 Bilateral basilar atelectasis rhonchi or crackles Distended abdomen: Bloated nontender No signs of edema legs Dr. Gipson is planning for coronary angiogram today, keep n.p.o.
--- NOTE | 2021-08-12 09:39 | PC.NURSE ---
Report received from Anabella PATRICK at this time.
[2021-08-12 11:28] LABS: Glucose Point of Care 98 mg/dL (70-110)
--- NOTE | 2021-08-12 11:46 | XACV_ITS ---
Exam Room: [facility] Ht: 157 cm Wt: 89 kg BSA: 2.02 m2 Gender: Female : 1970 Any Known Allergies: Other Exam Priority: Routine Procedure(s): Procedure Description: Diagnostic procedure Procedure Description: Left Heart Catheterization Procedure Description: Left ventriculography Procedure Description: Coronary Angiography Diagnostic Cath Status: Urgent Diagnostic Findings * No disease noted in the Left Main, Left Anterior Descending, Right, or Circumflex coronary arteries. * Coronary angiography shows right dominance. Conclusions 1. No disease noted in the Left Main, Left Anterior Descending, Right, or Circumflex coronary arteries. 2. Normal left ventricular systolic function. Ejection fraction of 60%. Recommendations * Transfer to CSU. * Aggressive risk factor modification. * Outpatient cardiology follow up in 1 month. Diagnostic RX Recommendation: medical therapy and/or counseling Anticoagulation: Heparin Ventriculography Ejection Fraction: 60.0 % Pressures Phase:Rest AO : 74 / 64 ( 69 ) @ 1:20:00 PM 127 / 77 ( 98 ) @ 1:26:00 PM 127 / 77 ( 98 ) @ 1:26:00 PM LV : 128 / 3 / 21 @ 1:25:00 PM 128 / 2 / 26 @ 1:26:00 PM 135 / 0 / 27 @ 1:26:00 PM Valves Phase:DefaultPhase AV : 7.0 @ 12:30:29 PM AV Mean Gradient: 16.0 @ 12:30:29 PM 16.0 @ 12:30:29 PM Clinical Evaluation EBL: 5mL-10mL Procedural Details Procedure Consent Obtained. Admit Source: In Patient. Pre-Procedure Time Out. Identified patient by full name and date of as verbalized by the patient/guarantor. Does the consent match the physician's order: Yes. Accurate & Complete Informed Consent: Yes. Inpatient/Outpatient History & Physical on Chart: Yes. If H&P is completed, is and addenduem needed: N/A; If yes, is the addendum complete: N/A. Visualize and Verify Site with Patient/Guarantor: N/A. Relevant Radiology Images available: N/A. Pre-op teaching completed and patient verbalized understanding. The risks, benefits, and alternatives of sedation and/or procedure were discussed by physician. The patient agrees to continue. Procedure started. [facility] Clinical Fraility Score: 3: Managing Well. Product Manager Financial Services Indications: Worsening Angina. Chest Pain Symptom Assessment: Atypical Angina. Correct patient, site and procedure confirmed by cath team. Current diagnosis: Chest Pain. PERRLA. Strong, equal hand mdm sr bilaterally. Lungs clear x 5 lobes. IV Site on Arrival: 20 gauge in the right hand. A 20 gauge IV was started in the left forearm using aseptic technique. IV Fluids: 0.9% NaCl at KVO. 0 mL infused prior to laboratory coordinator. Pre Procedural Pulses: bilateral dorsalis pedis was 2+. Pre Procedural Pulses: bilateral radial was 2+. Oxygen started at 2liters/min via nasal canula. right groin was prepped with chloroprep then draped in the usual sterile fashion. right radial was prepped with chloroprep then draped in the usual sterile fashion. Baseline sample Acquired. HR: 92 BPM. Physician notified. Physician arrived. Physician scrubbed in. Immediate Pre-Procedure Time Out. Correct Patient: Yes; Correct Procedure: Yes; Correct Site: Yes; Correct Patient Position: Yes; Correct Supplies: Yes; Dried Flammable Prep: Yes; Blood Products Available: N/A. Lidocaine 1% infiltrated to the right radial. Arterial access obtained. A 5 english TIG catheter in over wire. Multiple views taken of left coronary artery. Catheter redirected to the RCA. Multiple views taken of right coronary artery. Catheter out. A 5 english Angled Pig catheter in over wire. LV gram performed in MARTE @ 10 mL/second for a total of 30 mL. EDP Sample taken: LV 128/2,26; HR: 97 BPM; SpO2: 95%. Pullback taken: LV 135/0,27; AO 127/77(98); Mean: 16mmHg, Peak to Peak: 7mmHg, SEP: 10sec/min; HR: 96 BPM; SpO2: 96%. A TR Band was successful obtaining hemostatsis at the Radial artery insertion site. Catheter out. Patient's family updated. Physician scrubbed out. Post Procedure: Pulses reassessed and unchanged. PERRLA. Strong, equal hand mdm sr bilaterally. No VTE prophylaxis required. Medication's Wasted: Lidocaine 1% = 18 mL. Medication's Wasted: Heparin = 1000 u. Total IV fluids: 255 mL. Post-op diagnosis: Non obstructive CAD. Complications: none. Estimated blood loss: 5mL-10mL. Responsiveness - Normal response to verbal stimuli; alert and oriented, PERRLA. Airway - Unaffected, no intervention required; spontaneous ventilation. Circulation: W/N/L, pulses unchanged. Nausea/Vomiting: No. Procedure completed. Patient transferred by wheelchair to CPRU. Vital chart was stopped. Access Site Site: Radial artery Sheath Size: 6 Fr Hemostasis Method: TR Band Hemostasis Success: Successful Procedure Medications Start: 12:11 PM Stop: 12:11 PM Medication: Versed Amount: 1 mg Route: I.V. Start: 12:11 PM Stop: 12:11 PM Medication: Fentanyl Amount: 50 mcg Route: I.V. Start: 12:15 PM Stop: 12:15 PM Medication: Versed Amount: 1 mg Route: I.V. Start: 12:15 PM Stop: 12:15 PM Medication: Fentanyl Amount: 50 mcg Route: I.V. Start: 12:19 PM Stop: 12:19 PM Medication: Heparin Amount: 5000 units Route: I.V. Start: 12:21 PM Stop: 12:21 PM Medication: 0.9% Saline Amount: 250 ml Route: I.V. bolus I, the attending physician, have reviewed and verified all procedure medications. Yes, all medications given per verbal order History/Risk Factors Hypertension: Yes Dyslipidemia: No Peripheral Arterial Disease (PAD): No Myocardial Infarction (NM): No Obesity: Yes Tobacco Use: Never Prior Interventions PCI: No CABG: No Valve Surgery: No Report Signatures Finalized by Frank Carson MD on 08/26/2021 11:30 AM
--- NOTE | 2021-08-12 11:56 | PC.NURSE ---
Patient to slab polisher at this time.
--- NOTE | 2021-08-12 12:07 | W.PM.OPSUD ---
Surgery/Procedure H&P Update DATE OF PROCEDURE: August 12, 2021 DATE H&P PERFORMED: 08/12/21 H&P UPDATE INFORMATION: I have reviewed H&P completed within last 30 days, I have examined patient prior to procedure and No changes to prior documentation PREOP DIAGNOSIS: Worsening angina PRIMARY INDICATION FOR PROCEDURE: Worsening angina PLANNED PROCEDURE: Left heart cath with possible percutaneous coronary intervention PATIENT REASSESSED PRIOR TO SEDATION, WITH NO CHANGE NOTED: Yes PHYSICAL EXAM: alert, oriented x 3, clear to auscultation bilaterally and regular rate & rhythm AIRWAY EVAL/ANESTHESIA PLAN: normal airway, ASA III, Monitored Anesthesia, Local Anesthesia, Risks, benefits & alternatives of sedation and/or procedure discussed and Patient agrees to continue as planned
[2021-08-12 13:45] LABS: Glucose Point of Care 94 mg/dL (70-110)
[2021-08-12 16:17] LABS: Glucose Point of Care 112 mg/dL (70-110)
--- NOTE | 2021-08-12 19:35 | PC.NURSE ---
Addendum entered by Carolina Cates RN 08/12/21 19:46: Around 1500: Patient admitted to CSU from record label intern. Patient oriented to room. Reviewed orders during stay with patient. Patient verbalized understanding of all teaching. Around 1830: TR band removed from patients right wrist. Cleaned site with soap and water,no drainage or hematoma noted. Dressed incision site with band-aid. Patient tolerated well. Will continue to monitor. Original Note: Around 1330: Patient admitted to CSU from record label intern. Patient oriented to room. Reviewed orders during stay with patient. Patient verbalized understanding of all teaching. Around 1830: TR band removed from patients right wrist. Cleaned site with soap and water,no drainage or hematoma noted. Dressed incision site with band-aid. Patient tolerated well. Will continue to monitor.
[2021-08-12 20:05] LABS: Glucose Point of Care 117 mg/dL (70-110)
[2021-08-12] MEDS: atorvastatin 40 mg Tablet PO (21:10)
[2021-08-13] VITALS (7 sets, daily range): BP systolic 117–122; BP diastolic 76–88; PULSE 90–96; RESP 17–24; TEMP 36.2–36.4; O2SAT 94–96
--- NOTE | 2021-08-13 04:00 | FL_ITS ---
WS: [id number] barium swallow [id number] REASON FOR EXAM: odynophagia FLUOROSCOPY TIME: 3.0 minutes FINDINGS: Oral administration of barium contrast with evaluation of the esophagus stomach and duodenum. No tertiary contractions/esophageal spasm was identified. Normal peristalsis. Small reducible hiatal hernia without significant Schatzki ring. The stomach was of normal size and contour with normal fold pattern. There was considerable pylorospasm with delayed emptying of the stomach, however no ulceration or oth er lesion was identified. The duodenal bulb and the duodenal sweep were within normal limits. FL/FL barium swallow [id number] IMPRESSION: No tertiary contractions of the esophagus identified. Small reducible hiatal he rnia without reflux or obstruction. Pylorospasm.
[2021-08-13 04:40] LABS: Basophils # 0.1 10^3/uL (0.0-0.1); Basophils % 0.7 %; Eosinophils # 0.3 10^3/uL (0.0-0.8); Hemoglobin 13.5 g/dL (11.5-15.3); Lymphocytes % 29.3 %; Mean Corpuscular HGB Conc 31.4 g/dL (30.0-36.0); Mean Corpuscular Hemoglobin 28.2 pg (28.0-34.0); Mean Platelet Volume 10.1 fL (7.4-10.4); Monocytes # 0.6 10^3/uL (0.2-0.9); Monocytes % 9.4 %; Neutrophils # 3.76 10^3/uL (1.8-7.7); Neutrophils % 56.3 %; Nucleated Red Blood Cells % 0 %; Platelet Count 245 10^3/cmm (130-400); Red Blood Count 4.78 10^6/uL (4.1-5.3); Red Cell Distribution Width 13.4 % (12.1-15.1); White Blood Count 6.7 10^3/uL (4.0-10.0)
[2021-08-13 05:09] LABS: Alanine Aminotransferase 22 U/L (0-33); Albumin Level 3.6 g/dL (3.5-5.2); Alkaline Phosphatase 108 IU/L (35-105); Anion Gap 15.5 (5-19); Aspartate Amino Transferase 20 U/L (0-32); Blood Urea Nitrogen 11 mg/dL (6-20); Calcium 9.3 mg/dL (8.5-10.5); Carbon Dioxide 21 mmol/L (22-29); Chloride 105 mmol/L (98-107); Globulin 3.8 g/dL (1.3-4.6); Glomerular Filtration Rate 131.1 mL/min (90-130); Glucose 118 mg/dL (65-115); Osmolality Calculated 286 mOsm/kg (285-295); Potassium 3.5 mmol/L (3.5-5.1); Sodium 138 mmol/L (136-145); Total Bilirubin 0.3 mg/dL (0.15-1.2); Total Protein 7.4 g/dL (6.6-8.7)
[2021-08-13 06:33] LABS: Glucose Point of Care 104 mg/dL (70-110)
--- NOTE | 2021-08-13 07:13 | P.PN_ITS ---
Subjective Subjective: Patient is overall doing well. Denies any chest pain today. Underwent coronary angiogram yesterday that did not show significant CAD. LV systolic function was normal. Vitals/I&O/Wt Last Vital Signs Temp 97.5 F L 08/13/21 07:08 Pulse 92 08/13/21 07:08 Resp 17 08/13/21 07:08 BP 120/83 08/13/21 07:08 Pulse Ox 95 08/13/21 07:08 08/12/21 08/13/21 08/13/21 22:59 06:59 14:59 Intake Total 350 / 607.13 500 / 1107.13 Balance 350 / 207.13 500 / 707.13 Weight last 48 hrs Weight 197 lb 6.4 oz Weight 188 lb Physical Exam Narrative: GENERAL: Patient is alert, awake and oriented x3. [] NECK: No jugular vein distension. [] HEENT: No cyanosis. No icterus. No pallor. [] HEART: Regular S1 and S2. No murmur, rub or gallop. [] LUNGS: Clear to auscultate bilaterally. [] ABDOMEN: Soft, nontender and nondistended. Positive bowel sounds. No guarding, rebound or tenderness. [] CENTRAL NERVOUS SYSTEM: Grossly nonfocal. [] EXTREMITIES: Lower extremities with 1+ edema bilaterally. Pulses palpable in the lower extremities, both dorsalis pedis and posterior tibial. [] Data : 08/13/21 04:03 08/13/21 04:03 A&P Assessment and plan (1) Chest pain: Status: Acute (2) COPD (chronic obstructive pulmonary disease): Status: Acute (3) YAIR (obstructive sleep apnea): Status: Acute Plan Patient's coronary angiogram did not show significant CAD. If continuing to have chest pain, can try long-acting nitrates for microvascular dysfunction. LV systolic function was normal Aggressive risk factor modification Thank you for involving us with care of this patient. Please call with questions. Attestations Medical Necessity Statement*: Care expected to cross 2 midnights Coding Level of Care Code Acute Home Stager for Toni Ramírez Diagnoses Chest pain R07.9 COPD (chronic obstructive pulmonary disease) J44.9 YAIR (obstructive sleep apnea) G47.33
--- NOTE | 2021-08-13 07:20 | PC.NURSE ---
Bedside report received from DARNELL Mitchell. Patient is resting in bed at this time. Even and unlabored breathing. Nurse will continue to monitor.
--- NOTE | 2021-08-13 07:53 | PC.NURSE ---
Spoke with Dr. Virgen. Nurse will hold all PO meds until patient is finished with upper GI series.
[2021-08-13] MEDS: metoprolol tartrate 25 mg Tablet 12.5 MG PO (11:11)
[2021-08-13] MEDS: aspirin 325 mg Tablet PO (11:11)
[2021-08-13] MEDS: oxybutynin chloride XL 5 MG TABLET 10 MG PO (11:11)
[2021-08-13] MEDS: pantoprazole DR 40 mg Tablet PO (11:12)
[2021-08-13] MEDS: polyethylene glycol 3350 Pkt 17 gm PO (11:12)
[2021-08-13] MEDS: fluoxetine 20 mg Capsule 60 MG PO (11:22)
[2021-08-13 11:31] LABS: Glucose Point of Care 106 mg/dL (70-110)
--- NOTE | 2021-08-13 12:15 | P.DS_ITS ---
Discharge Providers Date of Admission: 08/11/21 22:25 Date of Discharge: August 13, 2021 Attending Provider at Admission: Juan José De La Rosa Attending Provider at Discharge: Donta Virgen MD Primary Care Provider: JEFFERY Boone Diagnoses at Discharge Discharge Diagnosis (1) Chest pain: Status: Acute (2) COPD (chronic obstructive pulmonary disease): Status: Acute (3) YAIR (obstructive sleep apnea): Status: Acute Reason for Visit Reason for Visit: CP Hospital Course Hospital Course 50-year female who was admitted for management evaluation of atypical chest pain. Patient stress test was negative, for her odynophagia upper GI series was done. Esophageal spasm at pyloric region otherwise no significant abnormality. Patient will be discharged home on omeprazole. Her troponins were unremarkable, echo showed EF 55 to 60% without segmental wall motion abnormality. Patient remained chest pain-free during hospitalization, Physical Exam Narrative: Patient was stable Saturating well on room air Nonfocal neuro exam Able to tolerate her diet Abdomen soft No active chest pain Nonfocal neuro exam Discharge Data Studies Completed and Pending Completed Studies During Hospitalization Category Date Time Status FL barium swallow [id number] Routine Exams 08/13/21 04:00 Completed XR chest 1V portable [id number] Stat Exams 08/11/21 15:42 Completed CV. 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 Barium Swallow X-Ray 08/13/21 04:00 IMPRESSION: No tertiary contractions of the esophagus identified. Small reducible hiatal hernia without reflux or obstruction. Pylorospasm. Laboratory Results WBC 6.7 10^3/uL (4.0-10.0) 08/13/21 04:03 Corrected WBC Cancelled 08/11/21 18:45 RBC 4.78 10^6/uL (4.1-5.3) 08/13/21 04:03 Hgb 13.5 g/dL (11.5-15.3) 08/13/21 04:03 Hct 43.0 % (37.0-47.0) 08/13/21 04:03 MCV 90.0 fl (81-99) 08/13/21 04:03 MCH 28.2 pg (28.0-34.0) 08/13/21 04:03 MCHC 31.4 g/dL (30.0-36.0) 08/13/21 04:03 RDW 13.4 % (12.1-15.1) 08/13/21 04:03 Plt Count 245 10^3/cmm (130-400) 08/13/21 04:03 MPV 10.1 fL (7.4-10.4) 08/13/21 04:03 Gran % Cancelled 08/11/21 18:45 Neut % (Auto) 56.3 % 08/13/21 04:03 Lymph % (Auto) 29.3 % 08/13/21 04:03 [place] % (Auto) 9.4 % 08/13/21 04:03 Eos % (Auto) 4.0 % 08/13/21 04:03 Baso % (Auto) 0.7 % 08/13/21 04:03 Neut # (Auto) 3.76 10^3/uL (1.8-7.7) 08/13/21 04:03 Lymph # (Auto) 2.0 10^3/uL (0.8-4.8) 08/13/21 04:03 [place] # (Auto) 0.6 10^3/uL (0.2-0.9) 08/13/21 04:03 Eos # (Auto) 0.3 10^3/uL (0.0-0.8) 08/13/21 04:03 Baso # (Auto) 0.1 10^3/uL (0.0-0.1) 08/13/21 04:03 Absolute Gran (auto) Cancelled 08/11/21 18:45 Nucleated RBC % (auto) 0 % 08/13/21 04:03 Nucleated RBCs # 0.0 /100WBC 08/13/21 04:03 D-Dimer 0.32 ug/mIFEU (0-0.59) 08/11/21 22:40 Sodium 138 mmol/L (136-145) 08/13/21 04:03 Potassium 3.5 mmol/L (3.5-5.1) 08/13/21 04:03 Chloride 105 mmol/L (98-107) 08/13/21 04:03 Carbon Dioxide 21 mmol/L (22-29) L 08/13/21 04:03 Anion Gap 15.5 (5-19) 08/13/21 04:03 BUN 11 mg/dL (6-20) 08/13/21 04:03 Creatinine 0.5 mg/dL (0.5-0.9) 08/13/21 04:03 GFR Calculation 131.1 mL/min (90-130) H 08/13/21 04:03 Glucose 118 mg/dL (65-115) H 08/13/21 04:03 POC Glucose 106 mg/dL (70-110) 08/13/21 11:05 Calculated Osmolality 286 mOsm/kg (285-295) 08/13/21 04:03 Calcium 9.3 mg/dL (8.5-10.5) 08/13/21 04:03 Total Bilirubin 0.3 mg/dL (0.15-1.2) 08/13/21 04:03 GGT 52 U/L (5-36) H 08/12/21 00:51 AST 20 U/L (0-32) 08/13/21 04:03 ALT 22 U/L (0-33) 08/13/21 04:03 Alkaline Phosphatase 108 IU/L (35-105) H 08/13/21 04:03 Troponin T Baseline 6 ng/L (0-10) 08/11/21 18:45 Troponin T 120 Minute 6.00 ng/L (0-10) 08/11/21 20:27 Delta Troponin T 0 ABS# (0-10) 08/11/21 20:27 Troponin T Hi Sens 6Hr 6.00 ng/L (0-10) 08/12/21 00:51 Troponin T Hi Sens 6Hr Delta 0 ng/L (0-12) 08/12/21 00:51 Total Protein 7.4 g/dL (6.6-8.7) 08/13/21 04:03 Albumin 3.6 g/dL (3.5-5.2) 08/13/21 04:03 Globulin 3.8 g/dL (1.3-4.6) 08/13/21 04:03 Triglycerides 132 mg/dL (0-150) 08/12/21 00:51 Triglycerides Cancelled 08/12/21 00:51 Cholesterol 185 mg/dL (0-200) 08/12/21 00:51 Cholesterol Cancelled 08/12/21 00:51 LDL Cholesterol, Calc 130 mg/dL (50-129) H 08/12/21 00:51 LDL Cholesterol, Calc Cancelled 08/12/21 00:51 HDL Cholesterol 29 mg/dL (60-100) L 08/12/21 00:51 HDL Cholesterol Cancelled 08/12/21 00:51 LDL/HDL Ratio 4.48 RATIO (0.00-3.22) H 08/12/21 00:51 LDL/HDL Ratio Cancelled 08/12/21 00:51 Cholesterol/HDL Ratio 6.38 mg/dL (0.0-4.40) H 08/12/21 00:51 Cholesterol/HDL Ratio Cancelled 08/12/21 00:51 Urine Color Yellow (Yellow) 08/11/21 17:46 Urine Appearance Clear (CLEAR) 08/11/21 17:46 Urine pH 5 (5-7) 08/11/21 17:46 Ur Specific Era 1.030 (1.005-1.030) 08/11/21 17:46 Urine Protein Neg (Negative) 08/11/21 17:46 Urine Glucose (UA) Norm (Normal) 08/11/21 17:46 Urine Ketones Negative (Negative) 08/11/21 17:46 Urine Blood Neg (Negative) 08/11/21 17:46 Urine Nitrate Negative (Negative) 08/11/21 17:46 Urine Bilirubin Neg (Negative) 08/11/21 17:46 Urine Urobilinogen 4 mg/dL (Negative) H 08/11/21 17:46 Ur Leukocyte Esterase Negative (Negative) 08/11/21 17:46 Vitals Last Vital Signs Temp 97.5 F L 08/13/21 07:08 Pulse 94 08/13/21 11:07 Resp 24 H 08/13/21 11:07 BP 122/88 08/13/21 11:07 Pulse Ox 94 08/13/21 11:07 Discharge Plan Discharge Patient Disposition: Home Condition: Stable Prescriptions: New omeprazole 20 mg capsule,delayed release(DR/EC) 20 mg PO DAILY Qty: 90 0RF Continued (DME) blood-glucose meter [Blood Glucose Monitoring] Kit See Rx Instructions .ROUTE .MEDSUPPLY Qty: 1 0RF Rx Instructions: check blood sugar daily as directed (DME) Blood Glucose Test Strip See Rx Instructions .ROUTE .MEDSUPPLY Qty: 100 3RF Rx Instructions: check blood sugar (DME) lancets [BD Ultra Fine Lancets] 33 gauge misc See Rx Instructions .ROUTE .MEDSUPPLY Qty: 100 3RF Rx Instructions: check blood sugar daily as directed Spiriva with HandiHaler 18 mcg capsule, w/inhalation device 1 cap INHALATION DAILY@07 Qty: 90 2RF Rx Instructions: puncture 1 cap using device; one dose = 2 inhalations fluticasone propionate [Flonase Allergy Relief] 50 mcg/actuation spray,suspension 2 spray intranasal DAILY Qty: 15.8 0RF Rx Instructions: administer into each nostril albuterol sulfate 90 mcg/actuation aerosol powdr breath activated 2 inh INHALATION Q6H PRN (Reason: shortness of breath or wheezing) Qty: 1 2RF albuterol sulfate 2.5 mg /3 mL (0.083 %) solution for nebulization 2.5 mg inhalation QID PRN (Reason: shortness of breath or wheezing) Qty: 180 2RF oxybutynin chloride 10 mg tablet extended release 24hr 10 mg PO DAILY Qty: 90 1RF budesonide-formoterol [Symbicort] 80-4.5 mcg/actuation HFA aerosol inhaler 2 puff INHALATION Q12H 30 Days Qty: 10.2 2RF Rx Instructions: at 0700 & 1900 nitroglycerin [Nitrostat] 0.4 mg tablet, sublingual 0.4 mg SUBLINGUAL Q5M PRN (Reason: Chest Pain) Qty: 25 3RF Victoza 3-Rahul 0.6 mg/0.1 mL (18 mg/3 mL) pen injector 1.8 mg SUBCUT DAILY Qty: 9 3RF Rx Instructions: 0.6 mg once subcut daily for 1 week, then 1.2 mg daily for 1 week, then 1.8 mg daily and continue. fluoxetine 20 mg/5 mL (4 mg/mL) solution 60 mg PO DAILY@07 Qty: 450 2RF polyethylene glycol 3350 [Miralax] 17 gram/dose powder 17 g PO DAILY Qty: 238 2RF (DME) pen needle, diabetic 32 gauge x /32 needle See Rx Instructions .Route Qty: 100 3RF Rx Instructions: As directed (DME) OneTouch Ultra Test Strip MISCELLANEOUS 0RF aspirin 81 mg Tablet,Delayed Release (Dr/Ec) 81 mg PO DAILY 0RF metformin 500 mg tablet 500 mg PO DAILY 0RF ondansetron HCl [Zofran] 4 mg tablet 4 mg PO Q6H PRN (Reason: nausea and vomiting) Qty: 14 0RF Discharge Orders: Discharge Order (Routine); Ordered 08/13/21 Ordered By: Donta Virgen Referrals: Suzette Bowman FNP [Primary Care Provider] - (Please follow up with Suzette GIL on 08-19-21 at 11:15 a.m. Please call the 's office at [phone] if you have any questions. ) Discharge Diet: GI Soft Discharge Activity: Increase activity as tolerated Patient Instructions: Chest Pain (DC), Opioid Safety Discharge Attestations Time Spent in Discharge Care*: less than 30 min Quality Metrics Clinical Quality Measures [ No reported AMI, CVA or VTE this stay] Coding Level of Care Code Acute Chg FW DC note Diagnoses Chest pain R07.9 COPD (chronic obstructive pulmonary disease) J44.9 YAIR (obstructive sleep apnea) G47.33
--- NOTE | 2021-08-13 14:12 | PC.NURSE ---
Patient education provided. No questions or concerns. Patient medication sent to [facility] pharmacy and patient will pick it up. IV removed. Patient VS stable upon departure.
== END 2021-08-13 14:30 | disposition home or self-care (01) ==
LOC: ER 22:34 → MEDSURG 23:24 → CSU 08-12 13:02
PROVIDERS: Emergency Medicine; Internal Medicine; Physician Assistant; Admitting Provider Internal Medicine; Emergency Provider Emergency Medicine; PCP Nurse Practitioner Family; Visit Provider Internal Medicine
DX: R07.89 Other chest pain (principal); J44.9 Chronic obstructive pulmonary disease, unspecified; G47.33 Obstructive sleep apnea (adult) (pediatric); Z79.82 Long term (current) use of aspirin; Z86.73 Personal history of transient ischemic attack (TIA), and cerebral infarction without residual deficits; I25.10 Atherosclerotic heart disease of native coronary artery without angina pectoris; F32.9 Major depressive disorder, single episode, unspecified; E11.9 Type 2 diabetes mellitus without complications
CPT/HCPCS: 36415; 36416; 71045; 74220; 80053; 80061; 81003; 82962; 82977; 84484; 85025; 85378; 93005; 93306; 93452; 93458; 94640; 96361; 96372; 96374; 99285; C1769; C1887; C1894; G0378; J1644; J1650; J2250; J3010; J3490; J7030; Q9967

== ENCOUNTER → 2021-08-25 08:12 | Outpatient (BNVA) | payer MEDICAID, SELFPAY | PROVIDERS: PCP Nurse Practitioner Family; Visit Provider Social Worker Clinical | DX: F33.1 Major depressive disorder, recurrent, moderate (principal) | CPT/HCPCS: 90832 ==

== ENCOUNTER → 2021-09-01 08:00 | Outpatient (BNVA) | payer MEDICAID, SELFPAY | PROVIDERS: PCP Nurse Practitioner; Visit Provider Social Worker Clinical | DX: F33.1 Major depressive disorder, recurrent, moderate (principal) | CPT/HCPCS: 90832 ==

== ENCOUNTER → 2021-09-09 09:08 | Outpatient (BNVA) | payer MEDICAID, SELFPAY | PROVIDERS: PCP Nurse Practitioner; Referring Provider Nurse Practitioner Family; Visit Provider Surgery | DX: R07.9 Chest pain, unspecified (principal); R06.02 Shortness of breath; E11.9 Type 2 diabetes mellitus without complications; K21.9 Gastro-esophageal reflux disease without esophagitis; J44.9 Chronic obstructive pulmonary disease, unspecified; Z79.84 Long term (current) use of oral hypoglycemic drugs; Z79.82 Long term (current) use of aspirin; Z12.11 Encounter for screening for malignant neoplasm of colon | CPT/HCPCS: 99024; 99204; 99213 ==

== ENCOUNTER → 2021-09-15 09:54 | Outpatient (BNVA) | payer MEDICAID, SELFPAY | PROVIDERS: PCP Nurse Practitioner; Visit Provider Social Worker Clinical | DX: F33.1 Major depressive disorder, recurrent, moderate (principal) | CPT/HCPCS: 90834 ==

== ENCOUNTER → 2021-09-19 11:00 | Outpatient (BNVA) | payer MEDICAID, SELFPAY | PROVIDERS: PCP Nurse Practitioner; Visit Provider Internal Medicine Critical Care Medicine | DX: J45.909 Unspecified asthma, uncomplicated (principal); G47.33 Obstructive sleep apnea (adult) (pediatric); J31.0 Chronic rhinitis; J32.9 Chronic sinusitis, unspecified; J98.4 Other disorders of lung; Z99.89 Dependence on other enabling machines and devices; K21.9 Gastro-esophageal reflux disease without esophagitis; E11.8 Type 2 diabetes mellitus with unspecified complications | CPT/HCPCS: 99214 ==

== ENCOUNTER 2021-09-22 15:29 | Emergency (ER) | payer MEDICAID, SELFPAY ==
[2021-09-22 15:36] VITALS: BP 135/85; PULSE 81; RESP 16; TEMP 36.2; O2SAT 81; BMI 36.3
--- NOTE | 2021-09-22 16:04 | ED_ITS ---
HPI - Ear Problem General: Chief complaint: Ear Stated complaint: severe ear pain Time Seen by Provider: 09/22/21 15:43 History of Present Illness: Patient is a 50-year-old female who comes to the ED with left ear pain. Symptoms started approximately an hour and a half ago. Patient says she bent over to pick something up and felt a pop in her left ear. She pain now in her left ear and feels like it is draining but nothing has been draining out of her ear. She also reports that she is having difficulty hearing out of left ear as well. Associated symptoms: Reports ear or mastoid pain (Left ear); Denies fever(s), headache(s) or neck pain Review of Systems Const: Denies: fever(s), chills or fatigue Eyes: Denies: change in vision or eye discomfort ENMT: Reports: ear or mastoid pain (Left ear) and change in hearing (Difficulty hearing out of left ear); Denies: throat pain, odynophagia, nasal discharge or nasal congestion Card: Denies: chest pain, palpitations, edema, swelling of feet/ankles, dyspnea on exertion or orthopnea Resp: Denies: dyspnea, productive cough or non-productive cough GI: Denies: abdominal pain, nausea, vomiting, diarrhea, constipation or hematochezia : Denies: flank pain, dysuria or hematuria Musc: Denies: neck pain, back pain or extremity swelling Skin/Breast: Denies: rash or new lesions Neuro: Denies: headache(s), numbness in extremities or weakness in extremities PFS ED PFSH: Medical History COPD (chronic obstructive pulmonary disease) CVA (cerebral vascular accident) Depression Diabetes mellitus, controlled GERD (gastroesophageal reflux disease) Major depressive disorder, recurrent, moderate YAIR (obstructive sleep apnea) Psychiatric care Surgical History H/O laparoscopy H/O: hysterectomy History of cholecystectomy History of colonoscopy History of tubal ligation Hx of oophorectomy Family History Father CAD (coronary artery disease) Cancer Diabetes Hyperlipidemia Mother Hypertension Psychiatric illness Brother Hypertension Denies family history of Clotting disorder Dementia Chronic kidney disease (CKD) Suicide Anesthesia complication Bleeding disorder Family history of premature coronary artery disease Lung disease Stroke Social History Smoking and tobacco status: never smoked Second hand smoke exposure: Yes Alcohol intake: current Alcohol intake frequency: holidays/special occasions only Alcohol type: other Lives independently: Yes Household members: family and children Marital status: Single service: No Current occupational status: employed Current occupation: [email or web address] Current occupational exposures/hazards: No History of recent travel: No Current gender identity: Female Special clint needs: No Agree to transfusion: Yes Female Reproductive History: Date of last menstrual period: 08/12/21 Physical Exam Const: COMMON NORMALS: no acute distress, patient oriented x3 and alert GENERAL APPEARANCE: cooperative HENMT: COMMON NORMALS: normocephalic and EAC's normal HEAD & SCALP: normocephalic EXTERNAL AUDITORY CANAL: EAC's normal TYMPANIC MEMBRANE: TM normal on the right and TM abnormal TM laterality: left Details: perforation Details: with bloody discharge MOUTH: Normal oral and palatal mucosa present THROAT: posterior oropharynx normal and uvula midline Eye: COMMON NORMALS: Equal, round and reactive pupils present and conjunctivae normal CONJUNCTIVA: Yes conjunctivae normal PUPIL: Yes Equal, round and re active pupils present Neck/C-Spine: COMMON NORMALS: supple GENERAL: Yes normal visual inspection Resp: COMMON NORMALS: normal respiratory effort, No retractions, No use of accessory muscles and clear to auscultation bilaterally AUSCULTATION: clear to auscultation bilaterally Cardio: COMMON NORMALS: regular rate, regular rhythm, S1 normal heart sound present, S2 normal heart sound present, No gallops present (Cardio), No clicks present (Cardio), No murmurs present (Cardio) and Peripheral pulses 2+ throughout RATE: regular rate RHYTHM: regular rhythm HEART SOUNDS: S1 normal heart sound present and S2 normal heart sound present PERIPHERAL PULSES: Peripheral pulses 2+ throughout GI: COMMON NORMALS: Normal to inspection, nondistended, normoactive bowel sounds present, Soft to palpation, non-tender and no masses PALPATION: Yes Soft to palpation : COMMON NORMALS: Yes no CVA tenderness BLADDER/KIDNEY EXAM: Yes no CVA tenderness Back/Pelvis: COMMON NORMALS: no CVA tenderness Extremity: COMMON NORMALS: normal to inspection Neuro: COMMON NORMALS: patient oriented x3 and moves all extremities SENSORIUM/ORIENTATION: Yes alert Skin: GENERAL SKIN EXAM: dry skin Course Vital Signs: Vital signs: Vital Signs Temperature 97.1 F L 09/22/21 16:24 Pulse Rate 79 09/22/21 16:24 Respiratory Rate 16 09/22/21 16:24 Blood Pressure 127/73 09/22/21 16:24 Pulse Oximetry 95 09/22/21 16:24 MDM - Ear Medical Decision Making Patient is a 50-year-old female who has a ruptured left eardrum. I placed an order with case management for patient be referred to ENT specialist for follow- up. She was discharged home with a prescription for Ciprodex drops and oral antibiotic. Return to ED precautions given. Patient understood and agreed with plan. Discharge Plan Discharge Patient Disposition: Home Clinical Impression: Rupture of left tympanic membrane Condition: Stable Prescriptions: New cefdinir 250 mg/5 mL suspension for reconstitution 300 mg PO BID 10 Days Qty: 120 0RF Ciprodex 0.3-0.1 % drops,suspension 4 drp otic (ear) BID 7 Days Qty: 7.5 0RF No Action (DME) blood-glucose meter [Blood Glucose Monitoring] Kit See Rx Instructions .ROUTE .MEDSUPPLY Qty: 1 0RF Rx Instructions: check blood sugar daily as directed (DME) Blood Glucose Test Strip See Rx Instructions .ROUTE .MEDSUPPLY Qty: 100 3RF Rx Instructions: check blood sugar (DME) lancets [BD Ultra Fine Lancets] 33 gauge misc See Rx Instructions .ROUTE .MEDSUPPLY Qty: 100 3RF Rx Instructions: check blood sugar daily as directed Spiriva with HandiHaler 18 mcg capsule, w/inhalation device 1 cap INHALATION DAILY@07 Qty: 90 2RF Rx Instructions: puncture 1 cap using device; one dose = 2 inhalations albuterol sulfate 90 mcg/actuation aerosol powdr breath activated 2 inh INHALATION Q6H PRN (Reason: shortness of breath or wheezing) Qty: 1 2RF albuterol sulfate 2.5 mg /3 mL (0.083 %) solution for nebulization 2.5 mg inhalation QID PRN (Reason: shortness of breath or wheezing) Qty: 180 2RF oxybutynin chloride 10 mg tablet extended release 24hr 10 mg PO DAILY Qty: 90 1RF budesonide-formoterol [Symbicort] 80-4.5 mcg/actuation HFA aerosol inhaler 2 puff INHALATION Q12H 30 Days Qty: 10.2 2RF Rx Instructions: at 0700 & 1900 nitroglycerin [Nitrostat] 0.4 mg tablet, sublingual 0.4 mg SUBLINGUAL Q5M PRN (Reason: Chest Pain) Qty: 25 3RF Victoza 3-Rahul 0.6 mg/0.1 mL (18 mg/3 mL) pen injector 1.8 mg SUBCUT DAILY Qty: 9 3RF Rx Instructions: 0.6 mg once subcut daily for 1 week, then 1.2 mg daily for 1 week, then 1.8 mg daily and continue. fluoxetine 20 mg/5 mL (4 mg/mL) solution 60 mg PO DAILY@07 Qty: 450 2RF polyethylene glycol 3350 [Miralax] 17 gram/dose powder 17 g PO DAILY PRN0RF lactulose 10 gram/15 mL (15 mL) solution 15 ml PO BID 7 Days Qty: 210 0RF Rx Instructions: Take for 7 days prior to colonoscopy azelastine 137 mcg (0.1 %) aerosol,spray 1 spray intranasal BID 30 Days Qty: 30 6RF Rx Instructions: administer into each nostril fluticasone propionate [Flonase Allergy Relief] 50 mcg/actuation spray,suspension 2 spray intranasal DAILY 30 Days Qty: 15.8 6RF Rx Instructions: administer into each nostril (DME) pen needle, diabetic 32 gauge x 5/32 needle See Rx Instructions .Route Qty: 100 3RF Rx Instructions: As directed acyclovir [Zovirax] 5 % cream 1 applic topical .5x/day 4 Days Qty: 5 0RF Rx Instructions: needs appt for further refills (DME) OneTouch Ultra Test Strip MISCELLANEOUS 0RF aspirin 81 mg Tablet,Delayed Release (Dr/Ec) 81 mg PO DAILY 0RF metformin 500 mg tablet 500 mg PO DAILY 0RF ondansetron HCl [Zofran] 4 mg tablet 4 mg PO Q6H PRN (Reason: nausea and vomiting) Qty: 14 0RF omeprazole 20 mg capsule,delayed release(DR/EC) 20 mg PO DAILY Qty: 90 0RF Discharge Orders: Discharge ED (Routine); Ordered 09/22/21 Ordered By: Sidney Venegas Referrals: Lisa Flores FNP [Primary Care Provider] - Discharge Diet: Regular Discharge Activity: Increase activity as tolerated Patient Instructions: Ruptured Eardrum (ED) Activity Restrictions/Additional Instructions: Follow-up with medical provider as directed. Case management should contact you in the next several days to set up an appointment with ENT. Take medications as prescribed. Return to the ER or your medical provider if condition worsens. Please read and understand discharge instructions. Thank you for choosing [facility] for your healthcare needs today. Please realize this is an emergency room and that we are providing you with a medical screening exam and this may not be complete and all inclusive of all the testing and or work up that you may need to determine your ailment or severity of your illness. It is very important that you follow up as instructed or that you return to the Emergency Department should you have concerns or if your condition changes or worsens in any way. Stand Alone Forms: Work/School Release Coding Level of Care Code ED Cop Examiner for Chg Fwd Exam Comprehensive
[2021-09-22] MEDS: HYDROcodone-APAP 7.5-325 mg/15 mL UDC PO (16:15)
[2021-09-22 16:24] VITALS: BP 127/73; PULSE 79; RESP 16; TEMP 36.2; O2SAT 95
--- NOTE | 2021-09-23 19:54 | DCPLANNER ---
Addendum entered by Felicita Galvan 10/01/21 22:10: Patient had a follow up appointment scheduled with ENT - patient did attend appointment. Addendum entered by Felicita Galvan 09/25/21 16:53: Patient has a follow up appointment scheduled for Friday, October 01, 2021 at 11:[address] Jaimes, ENT. Clinic will call patient with appointment information. Original Note: records and information manager had message to schedule a follow up appointment for patient with ENT. records and information manager sent patients information to the front office staff at ENT. Patients information will be printed and reviewed. Clinic will call patient with appointment information.
== END 2021-09-22 16:28 | disposition home or self-care (01) ==
PROVIDERS: Emergency Provider Physician Assistant; PCP Nurse Practitioner
DX: H72.92 Unspecified perforation of tympanic membrane, left ear (principal); Z79.899 Other long term (current) drug therapy; Z79.82 Long term (current) use of aspirin; Z79.84 Long term (current) use of oral hypoglycemic drugs
CPT/HCPCS: 99283

== ENCOUNTER → 2021-10-01 11:16 | Outpatient (BNVA) | payer MEDICAID, SELFPAY | PROVIDERS: PCP Nurse Practitioner Family; Visit Provider Otolaryngology | DX: H66.92 Otitis media, unspecified, left ear (principal); H72.93 Unspecified perforation of tympanic membrane, bilateral; H90.12 Conductive hearing loss, unilateral, left ear, with unrestricted hearing on the contralateral side | CPT/HCPCS: 99203 ==

== ENCOUNTER → 2021-10-03 07:55 | Outpatient (BNVA) | payer MEDICAID, SELFPAY | PROVIDERS: PCP Nurse Practitioner Family; Visit Provider Social Worker Clinical | DX: F33.1 Major depressive disorder, recurrent, moderate (principal) | CPT/HCPCS: 90834 ==

== ENCOUNTER 2021-10-17 07:18 | Day surgery (SDC) | payer MEDICAID, SELFPAY ==
[2021-10-17 07:34] VITALS: BP 126/92; PULSE 92; RESP 18; TEMP 36.4; O2SAT 96; BMI 36.3
--- NOTE | 2021-10-17 07:51 | ANES.PREANE2 ---
Pre-Anesthetic Assessment Height/Weight: Height 1.52 m Weight 84.368 kg Temp Pulse Resp BP Pulse Ox 97.6 F 92 18 126/92 96 10/17/21 07:34 10/17/21 07:34 10/17/21 07:34 10/17/21 07:34 10/17/21 07:34 Preop Diagnosis: diagnostic Operation Date: 10/17/21 08:45 Proposed Procedures p EGD Dilation W/ Balloon [id number]/z12.11/r13.10(Not Applicable) - Tushar Mata MD s Colonoscopy(Not Applicable) - Tushar Mata MD Familial anesthetic complications: None Was Beta Tasia taken within 24 hours: N/A Was Clonidine taken within 24 hours: N/A Last intake: Intake Last Liquid Date 10/16/21 Last Liquid Time 21:00 Last Solid Date 10/15/21 Social No alcohol and No tobacco Exam alert, oriented x 3, clear to auscultation bilaterally and regular rate & rhythm Airway Mallampati: Class II Dentition: chipped and other (missing) Pulmonary Chronic Obstructive Pulmonary Disease and Sleep Apnea CV/HEM Stable Angina and Hypertension None reported Hepatic None reported GI None reported Metabolic Hyperlipidemia [facility] [place] None reported Neuropsych None reported Anesthetic Plan ASA status: 3 Anesthesia: MAC Medications/Allergies Home Medications Medication Instructions Recorded Confirmed Last Taken Type blood sugar diagnostic (Blood #100 ea 09/03/20 10/01/21 Unknown Rx Glucose Test) blood-glucose meter (Blood Glucose #1 ea 09/03/20 10/01/21 Unknown Rx Monitoring) lancets 33 gauge (BD Ultra Fine #100 ea 09/03/20 10/01/21 Unknown Rx Lancets) nitroglycerin 0.4 mg sublingual 0.4 mg SUBLINGUAL Q5M PRN #25 tab 10/09/20 10/15/21 08/11/21 Rx tablet (Nitrostat) albuterol sulfate 2.5 mg (3 mL) INHALATION QID PRN 12/16/20 10/15/21 10/16/21 Rx #180 ml albuterol sulfate 90 mcg/actuation 2 inh INHALATION Q6H PRN #1 each 12/16/20 10/15/21 10/16/21 Rx breath activated powder inhaler budesonide-formoterol HFA 80 2 puff INHALATION Q12H 30 Days 12/16/20 10/15/21 10/16/21 Rx mcg-4.5 mcg/actuation aerosol #10.2 gm inhaler (Symbicort) oxybutynin chloride 10 mg 10 mg PO DAILY #90 tab 12/16/20 10/15/21 10/16/21 Rx tablet,extended release 24 hr tiotropium bromide 18 mcg capsule 1 cap INHALATION DAILY@07 #90 inh 03/10/21 10/15/21 10/16/21 Rx with inhalation device (Spiriva with HandiHaler) pen needle, diabetic 32 gauge x #100 ea 05/02/21 10/01/21 Unknown Rx aspirin 81 mg tablet,delayed 81 mg PO DAILY 07/21/21 10/15/21 10/15/21 History release blood sugar diagnostic (OneTouch 07/21/21 10/01/21 Unknown History Ultra Test) ondansetron HCl 4 mg tablet 4 mg PO Q6H PRN #14 tab 07/21/21 10/15/21 10/16/21 Rx (Zofran) fluoxetine 20 mg/5 mL (4 mg/mL) 60 mg (15 mL) PO DAILY@07 #450 ml 08/04/21 10/15/21 10/16/21 Rx oral solution omeprazole 20 mg capsule,delayed 20 mg PO DAILY #90 cap 08/13/21 10/15/21 10/16/21 Rx release lactulose 10 gram/15 mL (15 mL) 15 ml PO BID 7 Days #210 ml 09/09/21 10/15/21 10/16/21 Rx oral solution polyethylene glycol 3350 17 17 g PO DAILY PRN g 09/09/21 10/15/21 10/16/21 History gram/dose oral powder (Miralax) azelastine 137 mcg (0.1 %) nasal 1 spray INTRANASAL BID 30 Days #30 09/19/21 10/15/21 10/16/21 Rx spray aerosol ml fluticasone propionate 50 2 spray INTRANASAL DAILY 30 Days 09/19/21 10/15/21 10/16/21 Rx mcg/actuation nasal #15.8 ml spray,suspension (Flonase Allergy Relief) Zovirax 5 % topical cream See Rx Instructions .ROUTE 10/03/21 10/15/21 10/16/21 Rx (acyclovir) .COMPLEX #5 g NS liraglutide 0.6 mg/0.1 mL (18 mg/3 1.8 mg (0.3 mL) SUBCUT DAILY #9 ml 10/03/21 10/15/21 10/16/21 Rx mL) subcutaneous pen injector (Victoza 3-Rahul) metformin 500 mg tablet See Rx Instructions .ROUTE 10/03/21 10/15/21 10/15/21 Rx .COMPLEX #180 tablet Allergies Allergy/AdvReac Type Severity Reaction Status Date / Time raspberry Allergy Severe closes up Verified 10/15/21 15:15 throat codeine Allergy ALGY-Difficulty Verified 10/15/21 15:15 Breathing Penicillins Allergy ALGY-Rash Verified 10/15/21 15:15 Sulfa (Sulfonamide Allergy ALGY-Rash Verified 10/15/21 15:15 Antibiotics) [facility] Anesthesia Medical History COPD (chronic obstructive pulmonary disease) CVA (cerebral vascular accident) Depression Diabetes mellitus, controlled GERD (gastroesophageal reflux disease) Major depressive disorder, recurrent, moderate YAIR (obstructive sleep apnea) Psychiatric care Surgical History H/O laparoscopy H/O: hysterectomy History of cholecystectomy History of colonoscopy History of tubal ligation Hx of oophorectomy Family History Father CAD (coronary artery disease) Cancer Diabetes Hyperlipidemia Mother Hypertension Psychiatric illness Brother Hypertension Denies family history of Clotting disorder Dementia Chronic kidney disease (CKD) Suicide Anesthesia complication Bleeding disorder Family history of premature coronary artery disease Lung disease Stroke Social History (Updated 10/15/21 @ 15:27 by Jesenia Beckham RN) Smoking and tobacco status: never smoked Second hand smoke exposure: Yes Alcohol intake: current Alcohol intake frequency: holidays/special occasions only Alcohol type: other Lives independently: Yes Household members: family and children Marital status: Single service: No Current occupational status: employed Current occupation: [employer] Current occupational exposures/hazards: No History of recent travel: No Current gender identity: Female Special clint needs: No Agree to transfusion: No (Jehova's Witness) Female Reproductive History Date of last menstrual period: 08/12/21 Data Anesthesia Cardiac Studies: Echocardiogram 08/12/21 Sestamibi Stress Test (Cardiology) 11/24/19
[2021-10-17] MEDS: sodium chloride 0.9% 1,000 ML 30 ML IV (07:53)
--- NOTE | 2021-10-17 08:34 | P.HP_ITS ---
Same Day Surgery H&P Indication for Procedure/HPI DATE OF PROCEDURE: October 17, 2021 CHIEF COMPLAINT/INDICATIONFOR SURGICAL PROCEDURE: EGD/colonoscopy PREOP DIAGNOSIS: diagnostic PLANNED PROCEDURE: Operation Date: 10/17/21 08:45 Proposed Procedures p EGD Dilation W/ Balloon [id number]/[id number]/z12.11/r13.10(Not Applicable) - Tushar Mata MD s Colonoscopy(Not Applicable) - Tushar Mata MD Medications/Allergies* Home Medications Medication Instructions Recorded Confirmed Type aspirin 81 mg tablet,delayed 81 mg PO DAILY 07/21/21 10/15/21 History release blood sugar diagnostic (OneTouch 07/21/21 10/01/21 History Ultra Test) polyethylene glycol 3350 17 17 g PO DAILY PRN g 09/09/21 10/15/21 History gram/dose oral powder (Miralax) Allergies/Adverse Reactions Allergy/AdvReac Type Severity Reaction Status Date / Time raspberry Allergy Severe closes up Verified 10/15/21 15:15 throat codeine Allergy ALGY-Difficulty Verified 10/15/21 15:15 Breathing Penicillins Allergy ALGY-Rash Verified 10/15/21 15:15 Sulfa (Sulfonamide Allergy ALGY-Rash Verified 10/15/21 15:15 Antibiotics) Current Medications: Generic Name Dose Route Start Last Admin Trade Name Freq PRN Reason Stop Dose Admin Sodium Chloride 1,000 mls @ 30 mls/hr 10/17/21 07:30 10/17/21 07:53 Sodium Chloride 0.9% IV 10/18/21 07:29 30 mls/hr .Q24H HUA Administration Pertinent History/Comorbid Conditions* Medical History (Updated 10/01/21 @ 11:42 by Hammad Jaimes MD) COPD (chronic obstructive pulmonary disease) CVA (cerebral vascular accident) Depression Diabetes mellitus, controlled GERD (gastroesophageal reflux disease) Major depressive disorder, recurrent, moderate YAIR (obstructive sleep apnea) Psychiatric care Surgical History (Updated 09/09/21 @ 09:28 by Tushar Mata MD) H/O laparoscopy H/O: hysterectomy History of cholecystectomy History of colonoscopy History of tubal ligation Hx of oophorectomy Family History (Updated 10/18/19 @ 10:37 by Aan Wheeler RN) Diabetes Father CAD (coronary artery disease) Father Hyperlipidemia Father Psychiatric illness Mother Cancer Father Hypertension Mother Brother Denies family history of Clotting disorder Dementia Chronic kidney disease (CKD) Suicide Anesthesia complication Bleeding disorder Family history of premature coronary artery disease Lung disease Stroke Social History Smoking and tobacco status: never smoked Second hand smoke exposure: Yes Alcohol intake: current Alcohol intake frequency: holidays/special occasions only Alcohol type: other Lives independently: Yes Household members: family and children Marital status: Single service: No Current occupational status: employed Current occupation: [employer] Current occupational exposures/hazards: No History of recent travel: No Current gender identity: Female Special clint needs: No Agree to transfusion: No (Jehova's Witness) Pertinent Exam Findings alert, oriented x 3 and regular rate & rhythm Recommendations Surgery/Procedure today Coding Level of Care Code Acute Practical Nursing Faculty for Toni Ramírez
[2021-10-17 09:14] VITALS: BP 110/70; PULSE 86; RESP 16; TEMP 36.6; O2SAT 95
--- NOTE | 2021-10-17 09:16 | ANE.PACU2 ---
Inpatient post-anesthesia follow up: Airway intact: Yes Vital signs: Temperature 97.8 F Pulse Rate 86 Respiratory Rate 16 Blood Pressure 110/70 Pulse Oximetry 95 Oxygen Delivery Me thod Room Air Oxygen Flow Rate Fraction of Inspir ed Oxygen Hydration adequate: Yes Nausea and vomiting: No Pain level: 1 Mental status: Baseline
[2021-10-17 09:27] VITALS: BP 124/73; PULSE 88; RESP 18; O2SAT 97
== END 2021-10-17 09:47 | disposition home or self-care (01) ==
PROVIDERS: PCP Nurse Practitioner Family; Visit Provider Surgery
PROC: 0DJD8ZZ Inspection of Lower Intestinal Tract, Via Natural or Artificial Opening Endoscopic (ICD-10-PCS; CPT 45378; 2021-10-17 08:45)
DX: Z12.11 Encounter for screening for malignant neoplasm of colon (principal); R13.10 Dysphagia, unspecified; K44.9 Diaphragmatic hernia without obstruction or gangrene; K29.50 Unspecified chronic gastritis without bleeding; B96.81 Helicobacter pylori [H. pylori] as the cause of diseases classified elsewhere; E78.5 Hyperlipidemia, unspecified; I10 Essential (primary) hypertension; Z79.82 Long term (current) use of aspirin; Z79.84 Long term (current) use of oral hypoglycemic drugs; J44.9 Chronic obstructive pulmonary disease, unspecified; J32.9 Chronic sinusitis, unspecified; K21.9 Gastro-esophageal reflux disease without esophagitis; G47.33 Obstructive sleep apnea (adult) (pediatric)
CPT/HCPCS: 43239; 45378; 88305; J2704; J7030

== ENCOUNTER → 2021-10-20 07:52 | Outpatient (BNVA) | payer MEDICAID, SELFPAY | PROVIDERS: PCP Nurse Practitioner Family; Visit Provider Social Worker Clinical | DX: F33.1 Major depressive disorder, recurrent, moderate (principal) | CPT/HCPCS: 90832 ==

== ENCOUNTER → 2021-11-04 11:16 | Outpatient (BNVA) | payer MEDICAID, SELFPAY | PROVIDERS: PCP Nurse Practitioner Family; Visit Provider Otolaryngology | DX: H90.12 Conductive hearing loss, unilateral, left ear, with unrestricted hearing on the contralateral side (principal); H72.92 Unspecified perforation of tympanic membrane, left ear; Z09 Encounter for follow-up examination after completed treatment for conditions other than malignant neoplasm | CPT/HCPCS: 99212; 99213 ==

== ENCOUNTER → 2021-11-10 09:06 | Outpatient (BNVA) | payer MEDICAID, SELFPAY | PROVIDERS: PCP Nurse Practitioner Family; Visit Provider Social Worker Clinical | DX: F33.1 Major depressive disorder, recurrent, moderate (principal) | CPT/HCPCS: 90834 ==

== ENCOUNTER → 2021-11-11 08:17 | Outpatient (BNVA) | payer MEDICAID, SELFPAY | PROVIDERS: PCP Nurse Practitioner Family; Visit Provider Nurse Practitioner Psychiatric/Mental Health | DX: F32.4 Major depressive disorder, single episode, in partial remission (principal) | CPT/HCPCS: 99213 ==

== ENCOUNTER → 2021-11-24 09:57 | Outpatient (BNVA) | payer MEDICAID, SELFPAY | PROVIDERS: PCP Nurse Practitioner Family; Visit Provider Social Worker Clinical | DX: F33.1 Major depressive disorder, recurrent, moderate (principal) | CPT/HCPCS: 90834 ==

== ENCOUNTER → 2021-12-08 10:06 | Outpatient (BNVA) | payer MEDICAID, SELFPAY | PROVIDERS: PCP Nurse Practitioner Family; Visit Provider Otolaryngology | DX: H72.92 Unspecified perforation of tympanic membrane, left ear (principal) | CPT/HCPCS: 99212 ==

== ENCOUNTER 2021-12-22 10:38 | Outpatient (CLI) | payer MEDICAID, SELFPAY ==
--- NOTE | 2021-12-22 11:15 | US_ITS ---
WS: [id number] THYROID ULTRASOUND HISTORY: Thyromegaly COMPARISON: None available. Right lobe: 1.4 cm x 1.1 cm x 4.3 cm (w x ap x l). Volume: 3.5 cm3. Normal size and echotexture. No significant are dominant nodules are present. Left lobe: 1.5 cm x 1.3 cm x 4.1 cm (w x ap x l). Volume: 4.3 cm3. Normal size and echotexture. No significant or dominant nodules are present. Isthmus: 0.2 cm. Benign cervical chain lymph nodes. US/US thyroid [id number] IMPRESSION: Normal thyroid ultrasound.
== END 2021-12-22 10:39 | disposition home or self-care (01) ==
LOC: RAD 10:39
PROVIDERS: PCP Nurse Practitioner Family; Visit Provider Internal Medicine
DX: R63.5 Abnormal weight gain (principal)
CPT/HCPCS: 76536

== ENCOUNTER 2022-01-12 09:15 | Outpatient (CLI) | payer MEDICAID, SELFPAY ==
--- NOTE | 2022-01-12 09:22 | MM_ITS ---
WS: [id number] VIEWS: MLO and CC views both breasts. 3D digital tomosynthesis is also included in this exam. Comparison made with prior exam of 04/18/2013.. Findings: There was no sign of mass, architectural distortion or suspicious calcification in either breast. Sc attered fibroglandular densities MM/[place] [id number] Impression: BI-RADS: 2-Benign FOLLOW-UP: 1 Year Follow-up This mammogram was also analyzed by the Computer Aided Detection System R2 Imag e Toggle Press Folder And Feeder.
== END 2022-01-12 09:16 | disposition home or self-care (01) ==
LOC: RAD 09:16
PROVIDERS: PCP Nurse Practitioner Family; Visit Provider Nurse Practitioner Family
DX: Z12.31 Encounter for screening mammogram for malignant neoplasm of breast (principal)
CPT/HCPCS: 77063; 77067

== ENCOUNTER → 2022-01-26 10:05 | Outpatient (BNVA) | payer MEDICAID, SELFPAY | PROVIDERS: PCP Nurse Practitioner Family; Visit Provider Internal Medicine | DX: E11.65 Type 2 diabetes mellitus with hyperglycemia (principal); R00.0 Tachycardia, unspecified; R63.5 Abnormal weight gain; K21.9 Gastro-esophageal reflux disease without esophagitis; Z68.37 Body mass index [BMI] 37.0-37.9, adult; Z79.84 Long term (current) use of oral hypoglycemic drugs | CPT/HCPCS: 36415; 83036; 84439; 84443; 99214 ==

== ENCOUNTER → 2022-03-02 09:20 | Outpatient (BNVA) | payer MEDICAID, SELFPAY | PROVIDERS: PCP Nurse Practitioner Family; Visit Provider Internal Medicine Pulmonary Disease | DX: J45.909 Unspecified asthma, uncomplicated (principal); G47.33 Obstructive sleep apnea (adult) (pediatric); J98.4 Other disorders of lung; J31.0 Chronic rhinitis; J32.9 Chronic sinusitis, unspecified; J82.83 Eosinophilic asthma; E66.9 Obesity, unspecified; Z68.37 Body mass index [BMI] 37.0-37.9, adult | CPT/HCPCS: 99214 ==

== ENCOUNTER 2022-04-07 16:42 | Emergency (ER) | payer MEDICAID, SELFPAY ==
[2022-04-07 16:57] VITALS: BP 131/84; PULSE 109; RESP 18; TEMP 37.1; O2SAT 95
--- NOTE | 2022-04-07 19:13 | PC.NURSE ---
PT REQUESTING TO LEAVE. BLOOD SUGAR CHECK AND IV REMOVED CATH INTACT. PT REPORTS THAT HER DEL TORO HAS IMPROVED. PT IS IN NAD. PT BREATHING IS NONLABORED RATE AND RHYTHM ARE WNL
[2022-04-07 19:14] VITALS: RESP 16
[2022-04-07 19:18] LABS: Glucose Point of Care 119 mg/dL (70-110)
== END 2022-04-07 19:15 | disposition left against medical advice (07) ==
PROVIDERS: Emergency Provider Family Medicine; PCP Nurse Practitioner Family
DX: Z53.21 Procedure and treatment not carried out due to patient leaving prior to being seen by health care provider (principal)
CPT/HCPCS: 36416; 82962

== ENCOUNTER 2022-04-14 09:45 | Emergency (ER) | payer MEDICAID, SELFPAY ==
[2022-04-14 09:46] VITALS: BP 131/73; PULSE 110; RESP 21; TEMP 36.7; O2SAT 98; BMI 37.0
--- NOTE | 2022-04-14 09:53 | XR_ITS ---
WS: [id number] Exam: XR chest 1V portable [id number] Date/Time of Exam: 04/14/2022 10:07 AM Reason For Exam: dyspnea/cough Comparison 08/11/2021. Findings: The lungs are clear and fully expanded. Costophrenic angles are sharp. No infiltrates. Bronchovascula r relief appears normal. Cardiac silhouette is unremarkable. Bony elements are intact. XR/XR chest 1V portable [id number] IMPRESSION: Unremarkable chest radiograph.
--- NOTE | 2022-04-14 10:13 | W.ED.URI ---
HPI - URI/Sore Throat General: Chief Complaint: Upper Respiratory Infection Stated Complaint: fever, congestion/n/v Time Seen by Provider: 04/14/22 09:52 History of Present Illness: Patient is a 51-year-old female who comes to the ED with upper respiratory symptoms. Symptoms started approximately 3 days ago. She has been having fever, productive cough with clear sputum, nasal drainage and congestion, fatigue, chills and body aches. Patient endorses being around someone who recently was diagnosed with flu. She has a history of bronchitis and asthma. She endorses having a couple episodes of posttussive emesis. Endorses some wheezing and has had to use her inhalers more frequently over the past couple days. Associated symptoms: Reports chills, fever(s), nasal congestion and vomiting (Posttussive emesis); Deny abdominal pain, chest pain, diarrhea, headache(s) or nausea Review of Systems Const: Reports: fever(s), chills, body aches and fatigue Eyes: Denies: change in vision or eye discomfort ENMT: Reports: nasal discharge and nasal congestion; Denies: throat pain or odynophagia Card: Denies: chest pain, palpitations, edema, swelling of feet/ankles, dyspnea on exertion or orthopnea Resp: Reports: productive cough and wheezing; Denies: dyspnea or non-productive cough GI: Reports: vomiting (Posttussive emesis); Denies: abdominal pain, nausea, diarrhea, constipation or hematochezia : Denies: flank pain, dysuria or hematuria Musc: Denies: neck pain, back pain or extremity swelling Skin/Breast: Denies: rash or new lesions Neuro: Denies: headache(s), numbness in extremities or weakness in extremities PFS ED PFSH: Medical History COPD (chronic obstructive pulmonary disease) CVA (cerebral vascular accident) Depression Diabetes mellitus, controlled GERD (gastroesophageal reflux disease) Major depressive disorder, recurrent, moderate YAIR (obstructive sleep apnea) Psychiatric care Surgical History H/O laparoscopy H/O: hysterectomy History of cholecystectomy History of colonoscopy History of tubal ligation Hx of oophorectomy Family History Father CAD (coronary artery disease) Cancer Diabetes Hyperlipidemia Mother Hypertension Psychiatric illness Brother Hypertension Denies family history of Clotting disorder Dementia Chronic kidney disease (CKD) Suicide Anesthesia complication Bleeding disorder Family history of premature coronary artery disease Lung disease Stroke Social History Smoking and tobacco status: never smoked Second hand smoke exposure: Yes Alcohol intake: current Alcohol intake frequency: holidays/special occasions only Alcohol type: other Lives independently: Yes Household members: family and children Marital status: Single service: No Current occupational status: employed Current occupation: [employer] Current occupational exposures/hazards: No History of recent travel: No Current gender identity: Female Special clint needs: No Agree to transfusion: No (Jehova's Witness) Female Reproductive History: Date of last menstrual period: 08/12/21 Physical Exam Const: COMMON NORMALS: no acute distress, patient oriented x3 and alert HENMT: COMMON NORMALS: normocephalic HEAD & SCALP: normocephalic MOUTH: Normal oral and palatal mucosa present THROAT: posterior oropharynx normal and uvula midline Neck/C-Spine: COMMON NORMALS: supple GENERAL: Yes normal visual inspection Resp: COMMON NORMALS: normal respiratory effort, No retractions and No use of accessory muscles EFFORT & INSPECTION: Yes Actively coughing AUSCULTATION: wheezes expiratory wheezes and throughout Cardio: COMMON NORMALS: regular rate, regular rhythm, S1 normal heart sound present, S2 normal heart sound present, No gallops present (Cardio), No clicks present (Cardio), No murmurs present (Cardio) and Peripheral pulses 2+ throughout RATE: regular rate RHYTHM: regular rhythm HEART SOUNDS: S1 normal heart sound present and S2 normal heart sound present PERIPHERAL PULSES: Peripheral pulses 2+ throughout GI: COMMON NORMALS: Normal to inspection, nondistended, normoactive bowel sounds present, Soft to palpation, non-tender and no masses PALPATION: Yes Soft to palpation : COMMON NORMALS: Yes no CVA tenderness BLADDER/KIDNEY EXAM: Yes no CVA tenderness Back/Pelvis: COMMON NORMALS: no CVA tenderness Extremity: COMMON NORMALS: normal to inspection Neuro: COMMON NORMALS: patient oriented x3 SENSORIUM/ORIENTATION: Yes alert GAIT: Yes Normal gait present Skin: GENERAL SKIN EXAM: dry skin Course Vital Signs: Vital signs: Vital Signs Temperature 100.7 F H 04/14/22 11:56 Pulse Rate 110 H 04/14/22 11:56 Respiratory Rate 16 04/14/22 11:56 Blood Pressure 114/67 04/14/22 11:56 Pulse Oximetry 90 04/14/22 11:56 Oxygen Delivery Me thod 04/14/22 11:10 MDM - URI/Sore Throat Medical Decision Making Patient is a 51-year-old female who comes to the ED with upper respiratory symptoms. She has been having a cough, nasal congestion and drainage, chills, body aches, fever and nausea. Patient has a history of asthma. Vitals are stable. Patient appears in no acute distress or pain. She does have some wheezing in her lungs upon auscultation and she is actively coughing. Rest of exam is benign. Influenza A positive. COVID-negative. Chest x-ray shows no acute findings. Patient was given a DuoNeb breathing treatment here in the ED along with Solu-Medrol and some Zofran. She was diagnosed with influenza A and bronchitis and discharged home with a prescription for Z-Rahul, prednisone and Zofran. She was told to continue using her at home inhalers. Follow-up with PCP within the next week for reevaluation. Patient understood and agreed with plan. Lab Data Radiology Impressions Chest X-Ray 04/14/22 09:53 IMPRESSION: Unremarkable chest radiograph. Laboratory Results Influenza Type A Ag positive (Negative) 04/14/22 10:54 Influenza Type B Ag negative (Negative) 04/14/22 10:54 SARS-CoV-2 Ag (Rapid) Negative (Negative) 04/14/22 10:35 Discharge Plan Discharge Patient Disposition: Home Clinical Impression: Bronchitis, Influenza A Condition: Stable Prescriptions: New azithromycin 200 mg/5 mL suspension for reconstitution See Rx Instructions .ROUTE .COMPLEX Qty: 30 0RF Rx Instructions: take 12.5 mL (500 mg) by mouth today (day 1), then 6.25 mL (250 mg) daily for 4 days (days 2-5) prednisolone 15 mg/5 mL solution 30 mg PO BID 5 Days Qty: 100 0RF ondansetron 4 mg tablet,disintegrating 4 mg PO Q8H PRN (Reason: nausea and vomiting) Qty: 15 0RF No Action (DME) blood-glucose meter [Blood Glucose Monitoring] Kit See Rx Instructions .[facility]OUTE [facility] Qty: 1 0RF Rx Instructions: check blood sugar daily as directed (DME) Blood Glucose Test Strip See Rx Instructions .ROUTE .MEDSUPPLY Qty: 100 3RF Rx Instructions: check blood sugar (DME) lancets [BD Ultra Fine Lancets] 33 gauge misc See Rx Instructions .ROUTE .MEDSUPPLY Qty: 100 3RF Rx Instructions: check blood sugar daily as directed Spiriva with HandiHaler 18 mcg capsule, w/inhalation device 1 cap INHALATION DAILY@07 Qty: 90 2RF Rx Instructions: puncture 1 cap using device; one dose = 2 inhalations albuterol sulfate 90 mcg/actuation aerosol powdr breath activated 2 inh INHALATION Q6H PRN (Reason: shortness of breath or wheezing) Qty: 1 2RF albuterol sulfate 2.5 mg /3 mL (0.083 %) solution for nebulization 2.5 mg inhalation QID PRN (Reason: shortness of breath or wheezing) Qty: 180 2RF rosuvastatin 20 mg tablet 20 mg PO DAILY polyethylene glycol 3350 [Miralax] 17 gram/dose powder 17 g PO DAILY PRN (Reason: Acid Reflux) albuterol sulfate 90 mcg/actuation HFA aerosol inhaler 2 puff inhalation Q6H PRN (Reason: shortness of breath or wheezing) fluticasone propion-salmeterol [Advair Diskus] 500-50 mcg/dose blister with device 1 inh inhalation BID Qty: 60 3RF fluoxetine 20 mg/5 mL (4 mg/mL) solution 60 mg PO DAILY@07 Qty: 450 3RF azelastine 137 mcg (0.1 %) aerosol,spray 1 spray intranasal BID 30 Days Qty: 30 6RF Rx Instructions: administer into each nostril fluticasone propionate [Flonase Allergy Relief] 50 mcg/actuation spray,suspension 2 spray intranasal DAILY 30 Days Qty: 15.8 6RF Rx Instructions: administer into each nostril (DME) pen needle, diabetic 32 gauge x 5/32 needle See Rx Instructions .Route Qty: 100 3RF Rx Instructions: As directed acyclovir [Zovirax] 5 % cream See Rx Instructions .ROUTE .COMPLEX Qty: 5 0RF Dose Instruction: APPLY 1 LAYER TOPICALLY 5 TIMES A DAY FOR 4 DAYS Rx Instructions: APPLY 1 LAYER TOPICALLY 5 TIMES A DAY FOR 4 DAYS pantoprazole [Protonix] 40 mg tablet,delayed release (DR/EC) 40 mg PO BID Qty: 28 0RF Victoza 3-Rahul 0.6 mg/0.1 mL (18 mg/3 mL) pen injector See Rx Instructions .ROUTE .COMPLEX Qty: 27 0RF Dose Instruction: INJECT 0.6MG SUBCUTANEOUSLY ONCE DAILY FOR ONE WEEK THEN 1.2MG DAILY FOR ONE WEEK, THEN 1.8MG DAILY AND CONTINUE Rx Instructions: INJECT 0.6MG SUBCUTANEOUSLY ONCE DAILY FOR ONE WEEK THEN 1.2MG DAILY FOR ONE WEEK, THEN 1.8MG DAILY AND CONTINUE nitroglycerin [Nitrostat] 0.4 mg tablet, sublingual 0.4 mg SUBLINGUAL Q5M PRN (Reason: Chest Pain) Qty: 25 3RF metformin 500 mg tablet See Rx Instructions .ROUTE .COMPLEX Qty: 60 0RF Dose Instruction: Take 2 tablets by mouth twice daily Rx Instructions: Take 2 tablets by mouth twice daily oxybutynin chloride 10 mg tablet extended release 24hr See Rx Instructions .ROUTE .COMPLEX Qty: 14 0RF Dose Instruction: TAKE 1 TABLET BY MOUTH ONCE DAILY . APPOINTMENT REQUIRED FOR FUTURE REFILLS Rx Instructions: TAKE 1 TABLET BY MOUTH ONCE DAILY . APPOINTMENT REQUIRED FOR FUTURE REFILLS (DME) OneTouch Ultra Test Strip See Rx Instructions .ROUTE .COMPLEX Qty: 50 0RF Dose Instruction: USE 1 STRIP TO CHECK GLUCOSE ONCE DAILY DIRECTED . APPOINTMENT REQUIRED FOR FUTURE REFILLS Rx Instructions: USE 1 STRIP TO CHECK GLUCOSE ONCE DAILY DIRECTED . APPOINTMENT REQUIRED FOR FUTURE REFILLS aspirin 81 mg Tablet,Delayed Release (Dr/Ec) 81 mg PO DAILY ondansetron HCl [Zofran] 4 mg tablet 4 mg PO Q6H PRN (Reason: nausea and vomiting) Qty: 14 0RF omeprazole 20 mg capsule,delayed release(DR/EC) 20 mg PO DAILY Qty: 90 0RF Hold Instructions: Resume on 10/31/21. Discharge Orders: Discharge ED (Routine); Ordered 04/14/22 Ordered By: Sidney Venegas Referrals: Suzette Bowman FNP [Primary Care Provider] - Discharge Diet: Regular Discharge Activity: Increase activity as tolerated Patient Instructions: Bronchitis (Acute) - Adult, Influenza (ED) Activity Restrictions/Additional Instructions: Follow-up with medical provider as directed in the next 5 to 7 days for reevaluation. Take medications as prescribed. Return to the ER or your medical provider if condition worsens. Please read and understand discharge instructions. Thank you for choosing [facility] for your healthcare needs today. Please realize this is an emergency room and that we are providing you with a medical screening exam and this may not be complete and all inclusive of all the testing and or work up that you may need to determine your ailment or severity of your illness. It is very important that you follow up as instructed or that you return to the Emergency Department should you have concerns or if your condition changes or worsens in any way. Coding Level of Care Code ED Preschool Teacher Assistant for Toni Ramírez Exam Comprehensive
[2022-04-14] MEDS: ondansetron 2 mg/ML SDV 2 mL 4 MG IM (10:32)
[2022-04-14 10:37] VITALS: BP 119/84; PULSE 99; O2SAT 92
[2022-04-14 11:09] LABS: SARS Covid-2 Antigen Negative (Negative)
[2022-04-14 11:10] VITALS: PULSE 103; RESP 18; O2SAT 94
[2022-04-14] MEDS: ipratropium-albuterol 3 mL Neb 6 ML INHALATION (11:14)
[2022-04-14 11:16] LABS: Influenza A by IFA positive (Negative); Influenza B by IFA negative (Negative)
[2022-04-14 11:17] VITALS: PULSE 109
[2022-04-14 11:56] VITALS: BP 114/67; PULSE 110; RESP 16; TEMP 38.2; O2SAT 90
== END 2022-04-14 11:58 | disposition home or self-care (01) ==
PROVIDERS: Emergency Provider Physician Assistant; PCP Nurse Practitioner Family
DX: J40 Bronchitis, not specified as acute or chronic (principal); J10.1 Influenza due to other identified influenza virus with other respiratory manifestations; Z79.82 Long term (current) use of aspirin; Z79.84 Long term (current) use of oral hypoglycemic drugs; Z20.822 Contact with and (suspected) exposure to COVID-19; Z77.22 Contact with and (suspected) exposure to environmental tobacco smoke (acute) (chronic); J44.9 Chronic obstructive pulmonary disease, unspecified; E11.9 Type 2 diabetes mellitus without complications
CPT/HCPCS: 71045; 87426; 87804; 94640; 96372; 99284; J2405; J2930

== ENCOUNTER → 2022-04-29 10:55 | Outpatient (BNVA) | payer MEDICAID, SELFPAY | PROVIDERS: PCP Nurse Practitioner Family; Visit Provider Internal Medicine | DX: E11.9 Type 2 diabetes mellitus without complications (principal); E78.5 Hyperlipidemia, unspecified; R00.0 Tachycardia, unspecified; R63.5 Abnormal weight gain; K21.9 Gastro-esophageal reflux disease without esophagitis; Z79.84 Long term (current) use of oral hypoglycemic drugs; Z68.36 Body mass index [BMI] 36.0-36.9, adult | CPT/HCPCS: 99214 ==

== ENCOUNTER 2022-05-04 00:27 | Emergency (ER) | payer MEDICAID, SELFPAY ==
[2022-05-04 00:30] VITALS: BP 140/84; PULSE 109; RESP 18; TEMP 36.6; O2SAT 94
[2022-05-04 00:51] VITALS: BP 141/88; PULSE 110; TEMP 36.6; O2SAT 97
--- NOTE | 2022-05-04 00:54 | W.ED.URI ---
HPI - URI/Sore Throat General: Chief Complaint: Fever Stated Complaint: sore throat Time Seen by Provider: 05/04/22 00:53 History of Present Illness: 51-year-old female comes in today with complaints of sore throat, cough, and constipation. Patient appears nontoxic. Patient has history of diabetes mellitus, asthma, constipation, GERD, COPD, major depression. Patient reports symptoms for the last 3 weeks. Patient reports recent antibiotic use. Associated symptoms: Reports fever(s) Review of Systems Const: Reports: fever(s) ENMT: Reports: throat pain Resp: Reports: non-productive cough PFSH ED PFSH: Medical History COPD (chronic obstructive pulmonary disease) CVA (cerebral vascular accident) Depression Diabetes mellitus, controlled GERD (gastroesophageal reflux disease) Major depressive disorder, recurrent, moderate YAIR (obstructive sleep apnea) Psychiatric care Surgical History H/O laparoscopy H/O: hysterectomy History of cholecystectomy History of colonoscopy History of tubal ligation Hx of oophorectomy Family History Father CAD (coronary artery disease) Cancer Diabetes Hyperlipidemia Mother Hypertension Psychiatric illness Brother Hypertension Denies family history of Clotting disorder Dementia Chronic kidney disease (CKD) Suicide Anesthesia complication Bleeding disorder Family history of premature coronary artery disease Lung disease Stroke Social History Smoking and tobacco status: never smoked Second hand smoke exposure: Yes Alcohol intake: current Alcohol intake frequency: holidays/special occasions only Alcohol type: other Lives independently: Yes Household members: family and children Marital status: Single service: No Current occupational status: employed Current occupation: [employer] Current occupational exposures/hazards: No History of recent travel: No Current gender identity: Female Special clint needs: No Agree to transfusion: No (Jehova's Witness) Female Reproductive History: Date of last menstrual period: 08/12/21 Physical Exam Const: COMMON NORMALS: alert HENMT: COMMON NORMALS: normocephalic HEAD & SCALP: normocephalic MOUTH: Normal oral and palatal mucosa present THROAT: posterior oropharynx abnormal (Yeast) Neck/C-Spine: COMMON NORMALS: full ROM Resp: COMMON NORMALS: normal respiratory effort and clear to auscultation bilaterally AUSCULTATION: clear to auscultation bilaterally Cardio: COMMON NORMALS: regular rate and regular rhythm RATE: regular rate RHYTHM: regular rhythm GI: COMMON NORMALS: Soft to palpation PALPATION: Yes Soft to palpation Extremity: COMMON NORMALS: normal to inspection Neuro: SENSORIUM/ORIENTATION: Yes alert Skin: COMMON NORMALS: turgor normal GENERAL SKIN EXAM: turgor normal Course Vital Signs: Vital signs: Vital Signs Temperature 97.9 F 05/04/22 00:51 Pulse Rate 102 H 05/04/22 01:42 Respiratory Rate 16 05/04/22 01:42 Blood Pressure 141/88 05/04/22 01:42 Pulse Oximetry 95 05/04/22 01:42 Oxygen Delivery Me thod 05/04/22 00:51 MDM - URI/Sore Throat Medical Decision Making Patient came in due to sore throat and difficulty swallowing. On exam we note whitish plaque to the posterior pharynx suggestive of thrush. Oral mucosa is moist. Vital signs are normal. Lungs are clear to auscultation. Differential diagnosis includes but not limited to strep, influenza, pneumonia, constipation, esophagitis, thrush. Chest x-ray was normal, KUB notes constipation but no blockage, flu and strep test were negative. Believe patient probably has oral and esophageal thrush. We will treat with nystatin suspension 4 mL 5 times a day for the next 14 days. Patient is very high risk due to her use of steroid inhalers and diabetes. Patient reports understanding of care plan need for follow-up or return to the ER. Lab Data Laboratory Results Influenza Type A Ag negative (Negative) 05/04/22 00:51 Influenza Type B Ag negative (Negative) 05/04/22 00:51 Group A Strep Rapid Negative (Negative) 05/04/22 00:51 Discharge Plan Discharge Patient Disposition: Home Clinical Impression: Thrush of mouth and esophagus Constipation Qualifiers: Constipation type: unspecified constipation type Qualified Code(s): K59.00 - Constipation, unspecified Condition: Stable Prescriptions: New nystatin 100,000 unit/mL suspension 4 ml PO 5XD 14 Days Qty: 280 0RF Rx Instructions: swish and swallow No Action (DME) blood-glucose meter [Blood Glucose Monitoring] Kit See Rx Instructions .ROUTE .MEDSUPPLY Qty: 1 0RF Rx Instructions: check blood sugar daily as directed (DME) Blood Glucose Test Strip See Rx Instructions .ROUTE .MEDSUPPLY Qty: 100 3RF Rx Instructions: check blood sugar (DME) lancets [BD Ultra Fine Lancets] 33 gauge misc See Rx Instructions .ROUTE .MEDSUPPLY Qty: 100 3RF Rx Instructions: check blood sugar daily as directed Spiriva with HandiHaler 18 mcg capsule, w/inhalation device 1 cap INHALATION DAILY@07 Qty: 90 2RF Rx Instructions: puncture 1 cap using device; one dose = 2 inhalations albuterol sulfate 90 mcg/actuation aerosol powdr breath activated 2 inh INHALATION Q6H PRN (Reason: shortness of breath or wheezing) Qty: 1 2RF albuterol sulfate 2.5 mg /3 mL (0.083 %) solution for nebulization 2.5 mg inhalation QID PRN (Reason: shortness of breath or wheezing) Qty: 180 2RF rosuvastatin 20 mg tablet 20 mg PO DAILY polyethylene glycol 3350 [Miralax] 17 gram/dose powder 17 g PO DAILY PRN (Reason: Acid Reflux) albuterol sulfate 90 mcg/actuation HFA aerosol inhaler 2 puff inhalation Q6H PRN (Reason: shortness of breath or wheezing) fluticasone propion-salmeterol [Advair Diskus] 500-50 mcg/dose blister with device 1 inh inhalation BID Qty: 60 3RF fluoxetine 20 mg/5 mL (4 mg/mL) solution 60 mg PO DAILY@07 Qty: 450 3RF azelastine 137 mcg (0.1 %) aerosol,spray 1 spray intranasal BID 30 Days Qty: 30 6RF Rx Instructions: administer into each nostril fluticasone propionate [Flonase Allergy Relief] 50 mcg/actuation spray,suspension 2 spray intranasal DAILY 30 Days Qty: 15.8 6RF Rx Instructions: administer into each nostril (DME) pen needle, diabetic 32 gauge x /32 needle See Rx Instructions .Route Qty: 100 3RF Rx Instructions: As directed acyclovir [Zovirax] 5 % cream See Rx Instructions .ROUTE .COMPLEX Qty: 5 0RF Dose Instruction: APPLY 1 LAYER TOPICALLY 5 TIMES A DAY FOR 4 DAYS Rx Instructions: APPLY 1 LAYER TOPICALLY 5 TIMES A DAY FOR 4 DAYS pantoprazole [Protonix] 40 mg tablet,delayed release (DR/EC) 40 mg PO BID Qty: 28 0RF Victoza 3-Rahul 0.6 mg/0.1 mL (18 mg/3 mL) pen injector See Rx Instructions .ROUTE .COMPLEX Qty: 27 0RF Dose Instruction: INJECT 0.6MG SUBCUTANEOUSLY ONCE DAILY FOR ONE WEEK THEN 1.2MG DAILY FOR ONE WEEK, THEN 1.8MG DAILY AND CONTINUE Rx Instructions: INJECT 0.6MG SUBCUTANEOUSLY ONCE DAILY FOR ONE WEEK THEN 1.2MG DAILY FOR ONE WEEK, THEN 1.8MG DAILY AND CONTINUE nitroglycerin [Nitrostat] 0.4 mg tablet, sublingual 0.4 mg SUBLINGUAL Q5M PRN (Reason: Chest Pain) Qty: 25 3RF metformin 500 mg tablet See Rx Instructions .ROUTE .COMPLEX Qty: 60 0RF Dose Instruction: Take 2 tablets by mouth twice daily Rx Instructions: Take 2 tablets by mouth twice daily oxybutynin chloride 10 mg tablet extended release 24hr See Rx Instructions .ROUTE .COMPLEX Qty: 14 0RF Dose Instruction: TAKE 1 TABLET BY MOUTH ONCE DAILY . APPOINTMENT REQUIRED FOR FUTURE REFILLS Rx Instructions: TAKE 1 TABLET BY MOUTH ONCE DAILY . APPOINTMENT REQUIRED FOR FUTURE REFILLS (DME) OneTouch Ultra Test Strip See Rx Instructions .ROUTE .COMPLEX Qty: 50 0RF Dose Instruction: USE 1 STRIP TO CHECK GLUCOSE ONCE DAILY DIRECTED . APPOINTMENT REQUIRED FOR FUTURE REFILLS Rx Instructions: USE 1 STRIP TO CHECK GLUCOSE ONCE DAILY DIRECTED . APPOINTMENT REQUIRED FOR FUTURE REFILLS aspirin 81 mg Tablet,Delayed Release (Dr/Ec) 81 mg PO DAILY ondansetron HCl [Zofran] 4 mg tablet 4 mg PO Q6H PRN (Reason: nausea and vomiting) Qty: 14 0RF omeprazole 20 mg capsule,delayed release(DR/EC) 20 mg PO DAILY Qty: 90 0RF Hold Instructions: Resume on 10/31/21. azithromycin 200 mg/5 mL suspension for reconstitution See Rx Instructions .ROUTE .COMPLEX Qty: 30 0RF Rx Instructions: take 12.5 mL (500 mg) by mouth today (day 1), then 6.25 mL (250 mg) daily for 4 days (days 2-5) ondansetron 4 mg tablet,disintegrating 4 mg PO Q8H PRN (Reason: nausea and vomiting) Qty: 15 0RF Discharge Orders: Discharge ED (Routine); Ordered 05/04/22 Ordered By: Scott Song Referrals: Suzette Bowman FNP [Primary Care Provider] - Discharge Diet: Usual diet Discharge Activity: Increase activity as tolerated Patient Instructions: Oral Candidiasis (ED) Activity Restrictions/Additional Instructions: Make sure to rinse your mouth thoroughly after using your inhalers. Use nystatin oral suspension 4 mL 5 times a day while awake. Make sure the suspension dramatic coach your entire mouth and your throat. Swallow the suspension after switching. Increase your ClearLax to 17 g 3 times a day until good bowel movements. Then continue using your ClearLax twice a day. Follow-up with primary care in 2 to 3 days for recheck. Return to ER for new concerns or worsening symptoms. Coding Level of Care Code ED Pasting Machine Offbearer for Toni Ramírez
--- NOTE | 2022-05-04 01:00 | XRR_ITS ---
PROCEDURE INFORMATION: Exam: XR Abdomen Exam date and time: 05/04/2022 1:14 AM Age: 51 years old Clinical indication: Constipation; Prior surgery; Surgery type: Gb, hyst TECHNIQUE: Imaging protocol: Radiologic exam of the abdomen. Views: Frontal supine view of the abdomen. 1 View. COMPARISON: CT abdomen pelvis w con* [id number] 07/21/2021 11:50 AM FINDINGS: Gastrointestinal tract: There is gaseous distention colon the upper abdomen. No visibly dilated small bowel. no gross free air. Bones/joints: Unremarkable. XR/XR KUB [id number] IMPRESSION: No acute findings.
--- NOTE | 2022-05-04 01:00 | XRR_ITS ---
PROCEDURE INFORMATION: Exam: XR Chest Exam date and time: 05/04/2022 1:12 AM Age: 51 years old Clinical indication: Cough and shortness of breath; Additional info: Cough, congestion TECHNIQUE: Imaging protocol: Radiologic exam of the chest. Views: 1 view. COMPARISON: CR XR chest 1V portable [id number] 04/14/2022 11:11 AM FINDINGS: Lungs: Lungs are clear. Pleural spaces: There is no pleural effusion or pneumothorax. Heart/Mediastinum: Cardiomediastinal contours are unremarkable. Bones/joints: Bones are unremarkable. XR/XR chest 1V portable [id number] IMPRESSION: No acute findings.
[2022-05-04 01:18] LABS: Rapid Strep A Test Negative (Negative)
[2022-05-04 01:21] LABS: Influenza A by IFA negative (Negative); Influenza B by IFA negative (Negative)
[2022-05-04] MEDS: nystatin 100,000 unit/mL UDC 5 mL 500000 UNIT PO (01:21)
[2022-05-04 01:42] VITALS: BP 141/88; PULSE 102; RESP 16; O2SAT 95
== END 2022-05-04 01:47 | disposition home or self-care (01) ==
PROVIDERS: Emergency Provider Nurse Practitioner Family; PCP Nurse Practitioner Family
DX: B37.81 Candidal esophagitis (principal); B37.0 Candidal stomatitis; K59.00 Constipation, unspecified; Z79.82 Long term (current) use of aspirin; Z79.84 Long term (current) use of oral hypoglycemic drugs; Z77.22 Contact with and (suspected) exposure to environmental tobacco smoke (acute) (chronic); J44.9 Chronic obstructive pulmonary disease, unspecified; Z86.73 Personal history of transient ischemic attack (TIA), and cerebral infarction without residual deficits; E11.9 Type 2 diabetes mellitus without complications
CPT/HCPCS: 71045; 74018; 87081; 87804; 87880; 99283

== ENCOUNTER 2022-05-06 14:05 | Emergency (ER) | payer MEDICAID, SELFPAY ==
[2022-05-06 14:42] VITALS: BP 138/86; PULSE 115; TEMP 37; O2SAT 95; BMI 34.5
--- NOTE | 2022-05-06 14:45 | XR_ITS ---
WS: [id number] EXAMINATION: XR chest 1V portable [id number] REASON FOR EXAM: cough COMPARISON: 05/04/2022 ORDER DATE: 05/06/2022 2:45 PM TECHNIQUE: A single, portable frontal chest x-ray was obtained. X-RAY FINDINGS: The lungs are clear. Pleural spaces are clear. No pleural effusions or pneumothorax. Cardiomediastinal silhouette is normal. No evidence for pulmonary edema. Soft tissue and osseous structures are unremarkable. No tubes or lines are present. XR/XR chest 1V portable [id number] IMPRESSION: Unremarkable frontal portable chest x-ray.
[2022-05-06 15:49] LABS: Basophils # 0.1 10^3/uL (0.0-0.1); Basophils % 0.4 %; Eosinophils # 0.2 10^3/uL (0.0-0.8); Eosinophils % 1.5 %; Hematocrit 44.9 % (37.0-47.0); Hemoglobin 14.6 g/dL (11.5-15.3); Lymphocytes # 1.9 10^3/uL (0.8-4.8); Lymphocytes % 15.5 %; Mean Corpuscular HGB Conc 32.5 g/dL (30.0-36.0); Mean Corpuscular Hemoglobin 29.3 pg (28.0-34.0); Mean Corpuscular Volume 90.2 fl (81-99); Mean Platelet Volume 10.4 fL (7.4-10.4); Monocytes # 0.9 10^3/uL (0.2-0.9); Monocytes % 7.4 %; Neutrophils # 9.18 10^3/uL (1.8-7.7); Neutrophils % 74.8 %; Nucleated Red Blood Cells % 0 %; Platelet Count 314 10^3/cmm (130-400); Red Blood Count 4.98 10^6/uL (4.1-5.3); Red Cell Distribution Width 13.2 % (12.1-15.1); White Blood Count 12.3 10^3/uL (4.0-10.0)
[2022-05-06 15:50] VITALS: BP 130/81; PULSE 121; O2SAT 91
[2022-05-06 16:15] LABS: Alanine Aminotransferase 28 U/L (0-33); Albumin Level 3.7 g/dL (3.5-5.2); Alkaline Phosphatase 123 U/L (35-105); Anion Gap 14.1 (5-19); Aspartate Amino Transferase 24 U/L (0-32); Blood Urea Nitrogen 6 mg/dL (6-20); Calcium 9.5 mg/dL (8.5-10.5); Carbon Dioxide 28 mmol/L (22-29); Chloride 102 mmol/L (98-107); Globulin 3.9 g/dL (1.3-4.6); Glomerular Filtration Rate 75.9 mL/min (90-130); Glucose 182 mg/dL (65-115); Lipase 19 U/L (13-60); Osmolality Calculated 294 mOsm/kg (285-295); Potassium 3.1 mmol/L (3.5-5.1); Sodium 141 mmol/L (136-145); Total Bilirubin 0.3 mg/dL (0.15-1.2); Total Protein 7.6 g/dL (6.6-8.7)
[2022-05-06 17:17] LABS: Blood Urine Trace (Negative); Glucose Urine UA Trace (Normal); Ketones Urine Negative (Negative); Nitrate Urine Negative (Negative); Protein Urine Neg (Negative); Urine Appearance Hazy (CLEAR); Urine Color Yellow (Yellow); pH Urine 5 (5-7)
[2022-05-06 17:18] LABS: Add Urine Microscopic? YES; Bilirubin Urine Neg (Negative); Leukocyte Esterase Urine Negative (Negative); Urobilinogen Urine 4 mg/dL (Negative)
[2022-05-06 17:31] LABS: Influenza A by IFA negative (Negative); Influenza B by IFA negative (Negative); SARS Covid-2 Antigen negative (Negative)
[2022-05-06 17:35] LABS: Bacteria Urine TRACE /hpf; Calcium Oxalate Crystals Urine >100 /hpf; RBC Urine RARE /hpf (0-2); Squamous Epithelial Cell Urine 0-4 /hpf (0-5)
[2022-05-06 17:36] LABS: Add Urine Culture? No
[2022-05-06 17:57] LABS: Glucose Point of Care 76 mg/dL (70-110)
[2022-05-06] MEDS: dextrose 5%-sod chloride 0.9% 1,000 ML 41 ML IV (18:21)
--- NOTE | 2022-05-06 18:33 | ED_ITS ---
HPI - General Adult General: Chief complaint: General Medical Stated complaint: Cough, N/V Time Seen by Provider: 05/06/22 18:29 History of Present Illness: 51-year-old female comes in today for complaints of malaise and nausea. Patient was seen 3 or 4 days ago for similar symptoms a nd at that time was diagnosed with yeast of the pharynx and esophagus. Patient reports improvement of throat discomfort but continues to feel worn out and rundown. Spouse states that she has been ill for about 1 month. Patient appears nontoxic. Patient appears no acute distress. Associated symptoms: Reports malaise and nausea Review of Systems Const: Reports: fatigue and malaise GI: Reports: nausea PFSH ED PFSH: Medical History COPD (chronic obstructive pulmonary disease) CVA (cerebral vascular accident) Depression Diabetes mellitus, controlled GERD (gastroesophageal reflux disease) Major depressive disorder, recurrent, moderate YAIR (obstructive sleep apnea) Psychiatric care Surgical History H/O laparoscopy H/O: hysterectomy History of cholecystectomy History of colonoscopy History of tubal ligation Hx of oophorectomy Family History Father CAD (coronary artery disease) Cancer Diabetes Hyperlipidemia Mother Hypertension Psychiatric illness Brother Hypertension Denies family history of Clotting disorder Dementia Chronic kidney disease (CKD) Suicide Anesthesia complication Bleeding disorder Family history of premature coronary artery disease Lung disease Stroke Social History Smoking and tobacco status: never smoked Second hand smoke exposure: Yes Alcohol intake: current Alcohol intake frequency: holidays/special occasions only Alcohol type: other Lives independently: Yes Household members: family and children Marital status: Single service: No Current occupational status: employed Current occupation: [employer] Current occupational exposures/hazards: No History of recent travel: No Current gender identity: Female Special clint needs: No Agree to transfusion: No (Jehova's Witness) Female Reproductive History: Date of last menstrual period: 08/12/21 Physical Exam Const: COMMON NORMALS: alert HENMT: COMMON NORMALS: normocephalic and Normal external nose present HEAD & SCALP: normocephalic NOSE: Normal external nose present THROAT: posterior oropharynx normal Neck/C-Spine: COMMON NORMALS: full ROM Resp: COMMON NORMALS: normal respiratory effort and clear to auscultation bilaterally AUSCULTATION: clear to auscultation bilaterally Cardio: COMMON NORMALS: regular rate and regular rhythm RATE: regular rate RHYTHM: regular rhythm Extremity: COMMON NORMALS: full ROM Neuro: SENSORIUM/ORIENTATION: Yes alert Skin: COMMON NORMALS: turgor normal GENERAL SKIN EXAM: turgor normal Course Vital Signs: Vital signs: Vital Signs Temperature 98.6 F 05/06/22 14:42 Pulse Rate 107 H 05/06/22 18:46 Respiratory Rate 16 05/06/22 18:46 Blood Pressure 132/81 05/06/22 18:46 Pulse Oximetry 93 05/06/22 18:46 Oxygen Delivery Me thod 05/06/22 18:46 [facility] - General Adult Medical Decision Making Patient comes in for persistent feelings of malaise. On exam lungs are clear to auscultation. Abdomen was soft nontender. Skin was warm and dry. Patient also complains of nausea. Differential diagnosis includes but not limited to pneumonia, malingering, viral syndrome, dehydration. Chest x-ray was unre markable. Patient had a mild elevation in white count at 12.3. Patient's potassium was 3.1. Patient was treated with 1 L of IV fluid for mild dehydration, 40 mEq of potassium for mild hypokalemia, otherwise patient was recommended to drink plenty of fluids eat a healthy diet and follow-up with [facility]. No signs of severe illness was noted. Thrush of the throat appears to be improved significantly over last exam. Lab Data 05/06/22 15:14 05/06/22 15:14 Radiology Impressions Chest X-Ray 05/06/22 14:45 IMPRESSION: Unremarkable frontal portable chest x-ray. Laboratory Results WBC 12.3 10^3/uL (4.0-10.0) H 05/06/22 15:14 RBC 4.98 10^6/uL (4.1-5.3) 05/06/22 15:14 Hgb 14.6 g/dL (11.5-15.3) 05/06/22 15:14 Hct 44.9 % (37.0-47.0) 05/06/22 15:14 MCV 90.2 fl (81-99) 05/06/22 15:14 MCH 29.3 pg (28.0-34.0) 05/06/22 15:14 MCHC 32.5 g/dL (30.0-36.0) 05/06/22 15:14 RDW 13.2 % (12.1-15.1) 05/06/22 15:14 Plt Count 314 10^3/cmm (130-400) 05/06/22 15:14 MPV 10.4 fL (7.4-10.4) 05/06/22 15:14 Neut % (Auto) 74.8 % 05/06/22 15:14 Lymph % (Auto) 15.5 % 05/06/22 15:14 [place] % (Auto) 7.4 % 05/06/22 15:14 Eos % (Auto) 1.5 % 05/06/22 15:14 Baso % (Auto) 0.4 % 05/06/22 15:14 Neut # (Auto) 9.18 10^3/uL (1.8-7.7) H 05/06/22 15:14 Lymph # (Auto) 1.9 10^3/uL (0.8-4.8) 05/06/22 15:14 [place] # (Auto) 0.9 10^3/uL (0.2-0.9) 05/06/22 15:14 Eos # (Auto) 0.2 10^3/uL (0.0-0.8) 05/06/22 15:14 Baso # (Auto) 0.1 10^3/uL (0.0-0.1) 05/06/22 15:14 Nucleated RBC % (auto) 0 % 05/06/22 15:14 Nucleated RBCs # 0.0 /100WBC 05/06/22 15:14 Sodium 141 mmol/L (136-145) 05/06/22 15:14 Potassium 3.1 mmol/L (3.5-5.1) L 05/06/22 15:14 Chloride 102 mmol/L (98-107) 05/06/22 15:14 Carbon Dioxide 28 mmol/L (22-29) 05/06/22 15:14 Anion Gap 14.1 (5-19) 05/06/22 15:14 BUN 6 mg/dL (6-20) 05/06/22 15:14 Creatinine 0.8 mg/dL (0.5-0.9) 05/06/22 15:14 GFR Calculation 75.9 mL/min (90-130) L 05/06/22 15:14 Glucose 182 mg/dL (65-115) H 05/06/22 15:14 POC Glucose 76 mg/dL (70-110) 05/06/22 17:54 Calculated Osmolality 294 mOsm/kg (285-295) 05/06/22 15:14 Calcium 9.5 mg/dL (8.5-10.5) 05/06/22 15:14 Total Bilirubin 0.3 mg/dL (0.15-1.2) 05/06/22 15:14 AST 24 U/L (0-32) 05/06/22 15:14 ALT 28 U/L (0-33) 05/06/22 15:14 Alkaline Phosphatase 123 U/L (35-105) H 05/06/22 15:14 Total Protein 7.6 g/dL (6.6-8.7) 05/06/22 15:14 Albumin 3.7 g/dL (3.5-5.2) 05/06/22 15:14 Globulin 3.9 g/dL (1.3-4.6) 05/06/22 15:14 Lipase 19 U/L (13-60) 05/06/22 15:14 Urine Color Yellow (Yellow) 05/06/22 16:31 Urine Appearance Hazy (CLEAR) A 05/06/22 16:31 Urine pH 5 (5-7) 05/06/22 16:31 Ur Specific [place] 1.020 (1.005-1.030) 05/06/22 16:31 Urine Protein Neg (Negative) 05/06/22 16:31 Urine Glucose (UA) Trace (Normal) H 05/06/22 16:31 Urine Ketones Negative (Negative) 05/06/22 16:31 Urine Blood Trace (Negative) H 05/06/22 16:31 Urine Nitrate Negative (Negative) 05/06/22 16:31 Urine Bilirubin Neg (Negative) 05/06/22 16:31 Urine Urobilinogen 4 mg/dL (Negative) H 05/06/22 16:31 Ur Leukocyte Esterase Negative (Negative) 05/06/22 16:31 Urine RBC Rare /hpf (0-2) 05/06/22 16:31 Urine WBC None /hpf (0-5) 05/06/22 16:31 Ur Squamous Epith Cells 0-4 /hpf (0-5) H 05/06/22 16:31 Calcium Oxalate Crystal >100 /hpf H 05/06/22 16:31 Amorphous Sediment Not Reportable 05/06/22 16:31 Urine Bacteria Trace /hpf (NONE) 05/06/22 16:31 Influenza Type A Ag negative (Negative) 05/06/22 16:31 Influenza Type B Ag negative (Negative) 05/06/22 16:31 SARS-CoV-2 Ag (Rapid) negative (Negative) 05/06/22 16:31 Discharge Plan Discharge Patient Disposition: Home Clinical Impression: Viral syndrome, Hypokalemia, Dehydration Condition: Stable Prescriptions: New ondansetron 4 mg tablet,disintegrating 4 mg PO Q8H PRN (Reason: nausea and vomiting) Qty: 10 0RF No Action (DME) blood-glucose meter [Blood Glucose Monitoring] Kit See Rx Instructions .ROUTE .MEDSUPPLY Qty: 1 0RF Rx Instructions: check blood sugar daily as directed (DME) Blood Glucose Test Strip See Rx Instructions .ROUTE .MEDSUPPLY Qty: 100 3RF Rx Instructions: check blood sugar (DME) lancets [BD Ultra Fine Lancets] 33 gauge misc See Rx Instructions .ROUTE .MEDSUPPLY Qty: 100 3RF Rx Instructions: check blood sugar daily as directed Spiriva with HandiHaler 18 mcg capsule, w/inhalation device 1 cap INHALATION DAILY@07 Qty: 90 2RF Rx Instructions: puncture 1 cap using device; one dose = 2 inhalations albuterol sulfate 90 mcg/actuation aerosol powdr breath activated 2 inh INHALATION Q6H PRN (Reason: shortness of breath or wheezing) Qty: 1 2RF albuterol sulfate 2.5 mg /3 mL (0.083 %) solution for nebulization 2.5 mg inhalation QID PRN (Reason: shortness of breath or wheezing) Qty: 180 2RF rosuvastatin 20 mg tablet 20 mg PO DAILY polyethylene glycol 3350 [Miralax] 17 gram/dose powder 17 g PO DAILY PRN (Reason: Acid Reflux) albuterol sulfate 90 mcg/actuation HFA aerosol inhaler 2 puff inhalation Q6H PRN (Reason: shortness of breath or wheezing) fluticasone propion-salmeterol [Advair Diskus] 500-50 mcg/dose blister with device 1 inh inhalation BID Qty: 60 3RF fluoxetine 20 mg/5 mL (4 mg/mL) solution 60 mg PO DAILY@07 Qty: 450 3RF azelastine 137 mcg (0.1 %) aerosol,spray 1 spray intranasal BID 30 Days Qty: 30 6RF Rx Instructions: administer into each nostril fluticasone propionate [Flonase Allergy Relief] 50 mcg/actuation s pray,suspension 2 spray intranasal DAILY 30 Days Qty: 15.8 6RF Rx Instructions: administer into each nostril (DME) pen needle, diabetic 32 gauge x 5/32 needle See Rx Instructions .Route Qty: 100 3RF Rx Instructions: As directed acyclovir [Zovirax] 5 % cream See Rx Instructions .ROUTE .COMPLEX Qty: 5 0RF Dose Instruction: APPLY 1 LAYER TOPICALLY 5 TIMES A DAY FOR 4 DAYS Rx Instructions: APPLY 1 LAYER TOPICALLY 5 TIMES A DAY FOR 4 DAYS pantoprazole [Protonix] 40 mg tablet,delayed release (DR/EC) 40 mg PO BID Qty: 28 0RF Victoza 3-Rahul 0.6 mg/0.1 mL (18 mg/3 mL) pen injector See Rx Instructions .ROUTE .COMPLEX Qty: 27 0RF Dose Instruction: INJECT 0.6MG SUBCUTANEOUSLY ONCE DAILY FOR ONE WEEK THEN 1.2MG DAILY FOR ONE WEEK, THEN 1.8MG DAILY AND CONTINUE Rx Instructions: INJECT 0.6MG SUBCUTANEOUSLY ONCE DAILY FOR ONE WEEK THEN 1.2MG DAILY FOR ONE WEEK, THEN 1.8MG DAILY AND CONTINUE nitroglycerin [Nitrostat] 0.4 mg tablet, sublingual 0.4 mg SUBLINGUAL Q5M PRN (Reason: Chest Pain) Qty: 25 3RF metformin 500 mg tablet See Rx Instructions .ROUTE .COMPLEX Qty: 60 0RF Dose Instruction: Take 2 tablets by mouth twice daily Rx Instructions: Take 2 tablets by mouth twice daily oxybutynin chloride 10 mg tablet extended release 24hr See Rx Instructions .ROUTE .COMPLEX Qty: 14 0RF Dose Instruction: TAKE 1 TABLET BY MOUTH ONCE DAILY . APPOINTMENT REQUIRED FOR FUTURE REFILLS Rx Instructions: TAKE 1 TABLET BY MOUTH ONCE DAILY . APPOINTMENT REQUIRED FOR FUTURE REFILLS (DME) OneTouch Ultra Test Strip See Rx Instructions .ROUTE .COMPLEX Qty: 50 0RF Dose Instruction: USE 1 STRIP TO CHECK GLUCOSE ONCE DAILY DIRECTED . APPOINTMENT REQUIRED FOR FUTURE REFILLS Rx Instructions: USE 1 STRIP TO CHECK GLUCOSE ONCE DAILY DIRECTED . APPOINTMENT REQUIRED FOR FUTURE REFILLS aspirin 81 mg Tablet,Delayed Release (Dr/Ec) 81 mg PO DAILY ondansetron HCl [Zofran] 4 mg tablet 4 mg PO Q6H PRN (Reason: nausea and vomiting) Qty: 14 0RF omeprazole 20 mg capsule,delayed release(DR/EC) 20 mg PO DAILY Qty: 90 0RF Hold Instructions: Resume on 10/31/21. azithromycin 200 mg/5 mL suspension for reconstitution See Rx Instructions .ROUTE .COMPLEX Qty: 30 0RF Rx Instructions: take 12.5 mL (500 mg) by mouth today (day 1), then 6.25 mL (250 mg) daily for 4 days (days 2-5) ondansetron 4 mg tablet,disintegrating 4 mg PO Q8H PRN (Reason: nausea and vomiting) Qty: 15 0RF nystatin 100,000 unit/mL suspension 4 ml PO 5XD 14 Days Qty: 280 0RF Rx Instructions: swish and swallow Discharge Orders: Discharge ED (Routine); Ordered 05/06/22 Ordered By: Scott Song Referrals: Suzette Bowman FNP [Primary Care Provider] - Discharge Diet: Advance as tolerated Discharge Activity: Increase activity as tolerated Patient Instructions: Acute Nausea and Vomiting (ED) Activity Restrictions/Additional Instructions: Drink plenty of fluids. Use electrolyte solutions like Pedialyte, clear Gatorade's, or other similar substances to maintain hydration and normal salts. Follow-up with primary care in 2 to 3 days for recheck. Return to ED for new concerns such as high fever greater than 100.4, inability to hold fluids down, blood in vomit or stool, or severe shortness of breath. Coding Level of Care Code ED Shoe Coverer for Toni Ramírez
[2022-05-06 18:46] VITALS: BP 132/81; PULSE 107; RESP 16; O2SAT 93
[2022-05-06] MEDS: ondansetron 2 mg/ML SDV 2 mL 4 MG IVP (18:54)
[2022-05-06] MEDS: potassium chloride ER 20 mEq Tablet 40 MEQ PO (18:54)
[2022-05-06 19:05] LABS: Glucose Point of Care 102 mg/dL (70-110)
[2022-05-06 19:22] VITALS: PULSE 78; RESP 16; O2SAT 95
== END 2022-05-06 19:23 | disposition home or self-care (01) ==
PROVIDERS: Family Medicine; Physician Assistant; Emergency Provider Nurse Practitioner Family; PCP Nurse Practitioner Family
DX: B34.9 Viral infection, unspecified (principal); E87.6 Hypokalemia; E86.0 Dehydration; Z79.82 Long term (current) use of aspirin; Z79.84 Long term (current) use of oral hypoglycemic drugs; Z20.822 Contact with and (suspected) exposure to COVID-19; Z77.22 Contact with and (suspected) exposure to environmental tobacco smoke (acute) (chronic); J44.9 Chronic obstructive pulmonary disease, unspecified; Z86.73 Personal history of transient ischemic attack (TIA), and cerebral infarction without residual deficits; E11.9 Type 2 diabetes mellitus without complications
CPT/HCPCS: 36415; 36416; 71045; 80053; 81001; 82962; 83690; 85025; 87426; 87804; 96374; 99284; J2405; J7042

== ENCOUNTER 2022-06-03 11:47 | Outpatient (CLI) | payer MEDICAID, SELFPAY | END 2022-06-03 11:48 | disposition home or self-care (01) | LOC: RT 11:48 | PROVIDERS: PCP Nurse Practitioner Family; Visit Provider Internal Medicine Pulmonary Disease | DX: J44.9 Chronic obstructive pulmonary disease, unspecified (principal) | CPT/HCPCS: 94060; 94726; 94729 ==

== ENCOUNTER → 2022-06-15 10:36 | Outpatient (BNVA) | payer MEDICAID, SELFPAY | PROVIDERS: PCP Nurse Practitioner Family; Visit Provider Internal Medicine Cardiovascular Disease | DX: R06.02 Shortness of breath (principal) | CPT/HCPCS: 99214; Q3014 ==

== ENCOUNTER 2022-07-15 06:00 | Outpatient (RCR) | payer MEDICAID, SELFPAY | END 2022-07-28 23:59 | disposition home or self-care (01) | LOC: TPT 06:00 | PROVIDERS: PCP Nurse Practitioner Family; Visit Provider Nurse Practitioner Family | DX: M54.9 Dorsalgia, unspecified (principal); G89.29 Other chronic pain | CPT/HCPCS: 97110; 97161 ==

== ENCOUNTER → 2022-07-21 10:38 | Outpatient (BNVA) | payer OTHER, SELFPAY | PROVIDERS: PCP Nurse Practitioner Family; Visit Provider Nurse Practitioner Psychiatric/Mental Health | DX: F33.1 Major depressive disorder, recurrent, moderate (principal) | CPT/HCPCS: 80061; 83036 ==

== ENCOUNTER 2022-07-29 06:00 | Outpatient (RCR) | payer MEDICAID, SELFPAY | END 2022-08-28 23:59 | disposition home or self-care (01) | LOC: TPT 06:00 | PROVIDERS: PCP Nurse Practitioner Family; Visit Provider Nurse Practitioner Family | DX: M54.9 Dorsalgia, unspecified (principal); G89.29 Other chronic pain | CPT/HCPCS: 97110 ==

== ENCOUNTER 2022-07-31 20:02 | Emergency (ER) | payer MEDICAID, SELFPAY ==
[2022-07-31 20:05] VITALS: BP 142/90; PULSE 115; RESP 18; TEMP 36.9; O2SAT 95; BMI 34.7
--- NOTE | 2022-07-31 20:30 | XRR_ITS ---
PROCEDURE INFORMATION: Exam: XR Chest Exam date and time: 07/31/2022 8:36 PM Age: 51 years old Clinical indication: Shortness of breath; Additional info: Weakness TECHNIQUE: Imaging protocol: Radiologic exam of the chest. Views: 1 view. COMPARISON: CR XR chest 1V portable [id number] 05/06/2022 3:05 PM FINDINGS: Lungs: Unremarkable. No consolidation. Pleural spaces: Unremarkable. No pleural effusion. No pneumothorax. Heart/Mediastinum: Unremarkable. No cardiomegaly. Bones/joints: Unremarkable. XR/XR chest 1V portable [id number] IMPRESSION: No acute findings.
--- NOTE | 2022-07-31 20:30 | CTR_ITS ---
PROCEDURE INFORMATION: Exam: CT Head Without Contrast Exam date and time: 07/31/2022 8:41 PM Age: 51 years old Clinical indication: Stroke-like symptoms; Right upper extremity and other: RT facial numbness numbness/paresthesia; Additional info: Symptoms of acute stroke TECHNIQUE: Imaging protocol: Computed tomography of the head without contrast. Radiation optimization: All CT scans at this facility use at least one of these dose optimization techniques: automated exposure control; mA and/or kV adjustment per patient size (includes targeted exams where dose is matched to clinical indication); or iterative reconstruction. Other technique: STROKE PROTOCOL was implemented. REPORTING DATA: Count of CT and Cardiac NM exams in prior 12 months: This patient has received 0 known CTs and 0 known cardiac nuclear medicine studies in the 12 months prior to the current study. COMPARISON: CT head wo con* [id number] 01/24/2021 6:51 PM RADIATION DOSE METRICS: Total DLP (mGy-cm): 1049.99 FINDINGS: Brain: Normal. No hemorrhage. Unremarkable white matter. No mass effect. Cerebral ventricles: No ventriculomegaly. Paranasal sinuses: Visualized sinuses are unremarkable. No fluid levels. Mastoid air cells: Visualized mastoid air cells are well aerated. Bones/joints: Unremarkable. No acute fracture. Soft tissues: Unremarkable. CT/CT head thrombolytic [id number] IMPRESSION: No acute intracranial abnormality. ASSESSMENT: ASPECTS (Laurence Stroke Program Early CT Score) is 10.
[2022-07-31 20:45] LABS: Basophils # 0.1 10^3/uL (0.0-0.1); Basophils % 0.6 %; Eosinophils # 0.2 10^3/uL (0.0-0.8); Eosinophils % 2.6 %; Hematocrit 43.1 % (37.0-47.0); Hemoglobin 13.8 g/dL (11.5-15.3); Lymphocytes # 2.5 10^3/uL (0.8-4.8); Mean Corpuscular Hemoglobin 28.7 pg (28.0-34.0); Mean Corpuscular Volume 89.6 fl (81-99); Mean Platelet Volume 10.2 fL (7.4-10.4); Monocytes # 0.9 10^3/uL (0.2-0.9); Monocytes % 9.1 %; Neutrophils # 5.65 10^3/uL (1.8-7.7); Neutrophils % 60.5 %; Nucleated Red Blood Cells % 0 %; Platelet Count 304 10^3/cmm (130-400); Red Blood Count 4.81 10^6/uL (4.1-5.3); White Blood Count 9.3 10^3/uL (4.0-10.0)
--- NOTE | 2022-07-31 20:53 | ECG_ITS ---
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 Measurements Intervals [place] Rate: 110 P: 64 AL: 167 QRS: 65 QRSD: 83 T: 73 QT: 324 QTc: 440 Interpretive Statements [address] T[address] DEVIATION AND MODERATE T-WAVE ABNORMALITY, CONSIDER ANTEROLATERAL ISCHEMIA [-0.1+ mV T-WAVE IN V3-V6] ST DEVIATION AND MODERATE T-WAVE ABNORMALITY, CONSIDER INFERIOR ISCHEMIA [-0.1+ mV T-WAVE IN II/aVF] Compared to ECG 08/11/2021 22:26:14 Possible ischemia now present Sinus rhythm no longer present T-wave abnormality still present Electronically Signed On 07-31-2022 21:48:20 INSECTICIDE MIXER by Ace Nobles M.D. [email or web address]
[2022-07-31] MEDS: valproic acid inj 500 MG in sodium chloride 0.9% 50 ML 55 MG IV (20:57)
[2022-07-31 21:01] LABS: INR 0.92 (0.8-1.2)
[2022-07-31 21:02] LABS: Partial Thromboplastin Time 26.1 SECONDS (23.9-36.7)
[2022-07-31 21:11] LABS: Alanine Aminotransferase 19 U/L (0-33); Albumin Level 3.9 g/dL (3.5-5.2); Alkaline Phosphatase 110 U/L (35-105); Anion Gap 15.4 (5-19); Aspartate Amino Transferase 15 U/L (0-32); Blood Urea Nitrogen 9 mg/dL (6-20); Calcium 9.5 mg/dL (8.5-10.5); Carbon Dioxide 24 mmol/L (22-29); Chloride 101 mmol/L (98-107); Globulin 3.4 g/dL (1.3-4.6); Glomerular Filtration Rate 88.6 mL/min (90-130); Glucose 211 mg/dL (65-115); Osmolality Calculated 289 mOsm/kg (285-295); Potassium 3.4 mmol/L (3.5-5.1); Sodium 137 mmol/L (136-145); Total Bilirubin 0.2 mg/dL (0.15-1.2); Total Protein 7.3 g/dL (6.6-8.7)
[2022-07-31 21:45] VITALS: BP 117/72; PULSE 105; O2SAT 94
[2022-07-31 21:59] VITALS: BP 117/72; PULSE 110; O2SAT 95
--- NOTE | 2022-07-31 22:15 | W.ED.NEUROSD ---
HPI - Neuro Symptoms/Deficit General: Chief Complaint: Neuro Symptoms/Deficit Stated Complaint: SWELLING TO R FACE/NECK/ARM Time Seen by Provider: 07/31/22 20:04 Source: patient History of Present Illness: 51-year-old female who around 5 PM noted that her right face felt different. It was numb and tingly. This seemed to stretch down into her right upper extremity. Her right lower extremity was not really affected. She states she was mildly dizzy. She had a headache. Paresthesias seem to continue with mildly less intense symptoms, headache is mildly improved as well. She notes that her arm and leg hurt to move as well. She endorses a history of a spot on my brain and in the distant past, that they gave me medication for and Me in the ICU . This was several years ago. She says they called it a stroke . Onset (ago): minute(s) Last Observed Normal: 17:00 Location: right face and right arm History of same: Yes Severity: moderate Quality: numb and tingling Relieving factors: none Exacerbating factors: none Context: sudden onset Associated symptoms: Reports headache(s), tingling and weakness; Deny chest pain, cough, diaphoresis, fevers/chills, nausea, seizures or vomiting Treatments Prior to Arrival: none Review of Systems Const: Denies: fever(s) or diaphoresis Eyes: Denies: change in vision ENMT: Denies: throat pain Card: Denies: chest pain Resp: Denies: dyspnea, productive cough or non-productive cough GI: Denies: abdominal pain, nausea or vomiting Musc: Denies: neck pain Neuro: Reports: headache(s) PFS ED PFSH: Medical History COPD (chronic obstructive pulmonary disease) CVA (cerebral vascular accident) Depression Diabetes mellitus, controlled GERD (gastroesophageal reflux disease) Major depressive disorder, recurrent, moderate YAIR (obstructive sleep apnea) Psychiatric care Surgical History H/O laparoscopy H/O: hysterectomy History of cholecystectomy History of colonoscopy History of tubal ligation Hx of oophorectomy Family History Father CAD (coronary artery disease) Cancer Diabetes Hyperlipidemia Mother Hypertension Psychiatric illness Brother Hypertension Social History Smoking and tobacco status: never smoked Second hand smoke exposure: Yes Alcohol intake: current Alcohol intake frequency: holidays/special occasions only Alcohol type: other Adopted: No Caregiver/support person: No Lives independently: Yes Household members: significant other and children Housing: Apartment Marital status: Marital status details: currently lives with ex husbanc Number of children: 3 Number of grandchildren: 7 Highest education level completed: High School Graduate service: No Current occupational status: employed Current occupation: [employer] Current occupational exposures/hazards: No Pets and animals: Yes (4 tiny dogs) Pets & animals: dog(s) Leisure activites: art Sexually active: No Current gender identity: Female Merced/Jewish: Jain Special merced needs: No Agree to transfusion: No (Jehova's Witness) Financial difficulty paying for basics: Hard Female Reproductive History: Para: 3 Spontaneous abortions: Yes (X 3) NIH stroke score NIHSS: Level Of Consciousness - 1a: 0 Level Of Consciousness Questions - 1b: Both Correct Level Of Consciousness Commands - 1c: Both Correct Best Gaze - 2: Normal Visual Mclean - 3: No Visual Loss Facial Palsy - 4: Normal Motor Arm Right - 5: No Drift Motor Arm Left - 5: No Drift Motor Leg Right - 6: No Drift Motor Leg Left - 6: No Drift Limb Ataxia - 7: Absent Sensory - 8: Normal Best Language - 9: No Aphasia Dysarthia - 10: Normal Extinction And Inattention - 11: 0 Score: Total Score: 0 Physical Exam Const: COMMON NORMALS: no acute distress GENERAL APPEARANCE: cooperative; not ill appearing and not frail appearing HENMT: COMMON NORMALS: normocephalic, atraumatic and Normal external nose present HEAD & SCALP: normocephalic and atraumatic FACE & SINUS: normal facial exam and face symmetric NOSE: Normal external nose present Eye: COMMON NORMALS: Equal, round and reactive pupils present and EOMs intact bilaterally PUPIL: Yes Equal, round and reactive pupils present Neck/C-Spine: GENERAL: Yes trachea midline Chest: CHEST: Yes Symmetrical chest wall rise Resp: COMMON NORMALS: normal respiratory effort, No retractions, No use of accessory muscles and clear to auscultation bilaterally AUSCULTATION: clear to auscultation bilaterally Cardio: COMMON NORMALS: regular rate and regular rhythm RATE: regular rate RHYTHM: regular rhythm GI: COMMON NORMALS: Normal to inspection, nondistended, normoactive bowel sounds present Extremity: COMMON NORMALS: no pedal edema Neuro: BETH COMA SCALE: document GCS findings Beth coma scale eye opening: Spontaneous Beth coma scale verbal response: Orientated Alpine coma scale motor response: Obey commands Beth coma scale total score: 15 SENSORY EXAM: Yes extremities (intact) Psych: COMMON NORMALS: speech normal SPEECH: Yes normal speech Skin: COMMON NORMALS: no rashes or lesions noted GENERAL SKIN EXAM: no rashes or lesions noted Course Vital Signs: Vital signs: Vital Signs Temperature 98.4 F 07/31/22 20:05 Pulse Rate 110 H 07/31/22 21:59 Respiratory Rate 18 07/31/22 20:05 Blood Pressure 117/72 07/31/22 21:59 Pulse Oximetry 95 07/31/22 21:59 Oxygen Delivery Me thod 07/31/22 21:59 MDM - Neuro Symptoms/Deficit Medical Decision Making Patient's NIH stroke scale is 0. Sensation was grossly intact bilaterally. No other neurological findings. Head CT is negative. No sign of prior stroke on imaging either. Chest x-ray is nonacute. Vitals have been normal. CBC is normal. BMP shows a potassium is 3.4. Liver enzymes are essentially normal. The patient had a headache on arrival. She was given an infusion of Depacon 500 mg, with resolution of her headache. Her paresthesias are almost gone at this point. With improvement in her symptoms, a negative stroke scale score, and nontoxic appearance, she will be allowed discharge. She endorsed to nursing earlier that her face may be numb partially because she had used Orajel on a the tooth prior. Lab Data 07/31/22 20:30 07/31/22 20:30 Radiology Impressions Chest X-Ray 07/31/22 20:30 IMPRESSION: No acute findings. Head CT 07/31/22 20:30 IMPRESSION: No acute intracranial abnormality. ASSESSMENT: ASPECTS (Laurence Stroke Program Early CT Score) is 10. Laboratory Results WBC 9.3 10^3/uL (4.0-10.0) 07/31/22 20:30 RBC 4.81 10^6/uL (4.1-5.3) 07/31/22 20:30 Hgb 13.8 g/dL (11.5-15.3) 07/31/22 20:30 Hct 43.1 % (37.0-47.0) 07/31/22 20: MCV 89.6 fl (81-99) 07/31/22 20:30 MCH 28.7 pg (28.0-34.0) 07/31/22 20: MCHC 32.0 g/dL (30.0-36.0) 07/31/22 20: RDW 13.0 % (12.1-15.1) 07/31/22 20: Plt Count 304 10^3/cmm (130-400) 07/31/22 20: MPV 10.2 fL (7.4-10.4) 07/31/22 20: Neut % (Auto) 60.5 % 07/31/22 20: Lymph % (Auto) 27.0 % 07/31/22 20: White % (Auto) 9.1 % 07/31/22 20:30 Eos % (Auto) 2.6 % 07/31/22 20:30 Baso % (Auto) 0.6 % 07/31/22 20: Neut # (Auto) 5.65 10^3/uL (1.8-7.7) 07/31/22 20: Lymph # (Auto) 2.5 10^3/uL (0.8-4.8) 07/31/22 20:30 White # (Auto) 0.9 10^3/uL (0.2-0.9) 07/31/22 20:30 Eos # (Auto) 0.2 10^3/uL (0.0-0.8) 07/31/22 20: Baso # (Auto) 0.1 10^3/uL (0.0-0.1) 07/31/22 20: Nucleated RBC % (auto) 0 % 07/31/22 20: Nucleated RBCs # 0.0 /100WBC 07/31/22 20: PT 12.70 SECONDS (12.1-14.9) 07/31/22 20: INR 0.92 (0.8-1.2) 07/31/22 20:30 APTT 26.1 SECONDS (23.9-36.7) 07/31/22 20:30 Sodium 137 mmol/L (136-145) 07/31/22 20:30 Potassium 3.4 mmol/L (3.5-5.1) L 07/31/22 20:30 Chloride 101 mmol/L (98-107) 07/31/22 20:30 Carbon Dioxide 24 mmol/L (22-29) 07/31/22 20:30 Anion Gap 15.4 (5-19) 07/31/22 20:30 BUN 9 mg/dL (6-20) 07/31/22 20:30 Creatinine 0.7 mg/dL (0.5-0.9) 07/31/22 20:30 GFR Calculation 88.6 mL/min (90-130) L 07/31/22 20:30 Glucose 211 mg/dL (65-115) H 07/31/22 20:30 Calculated Osmolality 289 mOsm/kg (285-295) 07/31/22 20:30 Calcium 9.5 mg/dL (8.5-10.5) 07/31/22 20:30 Total Bilirubin 0.2 mg/dL (0.15-1.2) 07/31/22 20:30 AST 15 U/L (0-32) 07/31/22 20:30 ALT 19 U/L (0-33) 07/31/22 20:30 Alkaline Phosphatase 110 U/L (35-105) H 07/31/22 20:30 Total Protein 7.3 g/dL (6.6-8.7) 07/31/22 20:30 Albumin 3.9 g/dL (3.5-5.2) 07/31/22 20:30 Globulin 3.4 g/dL (1.3-4.6) 07/31/22 20:30 Discharge Plan Discharge Patient Disposition: Home Clinical Impression: Paresthesia, Atypical migraine Condition: Stable Prescriptions: No Action (DME) blood-glucose meter [Blood Glucose Monitoring] Kit See Rx Instructions .ROUTE .MEDSUPPLY Qty: 1 0RF Rx Instructions: check blood sugar daily as directed (DME) Blood Glucose Test Strip See Rx Instructions .ROUTE .MEDSUPPLY Qty: 100 3RF Rx Instructions: check blood sugar (DME) lancets [BD Ultra Fine Lancets] 33 gauge misc See Rx Instructions .ROUTE .MEDSUPPLY Qty: 100 3RF Rx Instructions: check blood sugar daily as directed Spiriva with HandiHaler 18 mcg capsule, w/inhalation device 1 cap INHALATION DAILY@07 Qty: 90 2RF Rx Instructions: puncture 1 cap using device; one dose = 2 inhalations albuterol sulfate 90 mcg/actuation aerosol powdr breath activated 2 inh INHALATION Q6H PRN (Reason: shortness of breath or wheezing) Qty: 1 2RF albuterol sulfate 2.5 mg /3 mL (0.083 %) solution for nebulization 2.5 mg inhalation QID PRN (Reason: shortness of breath or wheezing) Qty: 180 2RF rosuvastatin 20 mg tablet 20 mg PO DAILY polyethylene glycol 3350 [Miralax] 17 gram/dose powder 17 g PO DAILY PRN (Reason: Acid Reflux) nitroglycerin [Nitrostat] 0.4 mg tablet, sublingual 0.4 mg SUBLINGUAL Q5M PRN (Reason: Chest Pain) Qty: 25 3RF albuterol sulfate 90 mcg/actuation HFA aerosol inhaler 2 puff inhalation Q6H PRN (Reason: shortness of breath or wheezing) fluticasone propion-salmeterol [Advair Diskus] 500-50 mcg/dose blister with device 1 inh inhalation BID Qty: 60 3RF fluoxetine 20 mg/5 mL (4 mg/mL) solution 60 mg PO DAILY@07 Qty: 450 3RF azelastine 137 mcg (0.1 %) aerosol,spray 1 spray intranasal BID 30 Days Qty: 30 6RF Rx Instructions: administer into each nostril fluticasone propionate [Flonase Allergy Relief] 50 mcg/actuation spray,suspension 2 spray intranasal DAILY 30 Days Qty: 15.8 6RF Rx Instructions: administer into each nostril (DME) pen needle, diabetic 32 gauge x 5/32 needle See Rx Instructions .Route Qty: 100 3RF Rx Instructions: As directed pantoprazole [Protonix] 40 mg tablet,delayed release (DR/EC) 40 mg PO BID Qty: 28 0RF Victoza 3-Rahul 0.6 mg/0.1 mL (18 mg/3 mL) pen injector See Rx Instructions .ROUTE .COMPLEX Qty: 27 0RF Dose Instruction: INJECT 0.6MG SUBCUTANEOUSLY ONCE DAILY FOR ONE WEEK THEN 1.2MG DAILY FOR ONE WEEK, THEN 1.8MG DAILY AND CONTINUE Rx Instructions: INJECT 0.6MG SUBCUTANEOUSLY ONCE DAILY FOR ONE WEEK THEN 1.2MG DAILY FOR ONE WEEK, THEN 1.8MG DAILY AND CONTINUE metformin 500 mg tablet See Rx Instructions .ROUTE .COMPLEX Qty: 60 0RF Dose Instruction: Take 2 tablets by mouth twice daily Rx Instructions: Take 2 tablets by mouth twice daily oxybutynin chloride 10 mg tablet extended release 24hr See Rx Instructions .ROUTE .COMPLEX Qty: 14 0RF Dose Instruction: TAKE 1 TABLET BY MOUTH ONCE DAILY . APPOINTMENT REQUIRED FOR FUTURE REFILLS Rx Instructions: TAKE 1 TABLET BY MOUTH ONCE DAILY . APPOINTMENT REQUIRED FOR FUTURE REFILLS (DME) OneTouch Ultra Test Strip See Rx Instructions .ROUTE .COMPLEX Qty: 50 0RF Dose Instruction: USE 1 STRIP TO CHECK GLUCOSE ONCE DAILY DIRECTED . APPOINTMENT REQUIRED FOR FUTURE REFILLS Rx Instructions: USE 1 STRIP TO CHECK GLUCOSE ONCE DAILY DIRECTED . APPOINTMENT REQUIRED FOR FUTURE REFILLS aspirin 81 mg Tablet,Delayed Release (Dr/Ec) 81 mg PO DAILY omeprazole 20 mg capsule,delayed release(DR/EC) 20 mg PO DAILY Qty: 90 0RF Hold Instructions: Resume on 10/31/21. ondansetron 4 mg tablet,disintegrating 4 mg PO Q8H PRN (Reason: nausea and vomiting) Qty: 10 0RF Discharge Orders: Discharge ED (Routine); Ordered 07/31/22 Ordered By: Greg Stephens Referrals: Suzette Bowman FNP [Primary Care Provider] - Patient Instructions: Migraine Headache (ED), Paresthesia (ED) Activity Restrictions/Additional Instructions: Return for worsening numbness or tingling, worsening headache, worsening weakness, mental status changes, trouble with language or site, any other concerning symptoms. Coding Level of Care Code ED Early Childhood Education Specialist for Toni Ramírez
== END 2022-07-31 22:33 | disposition home or self-care (01) ==
PROVIDERS: Emergency Provider Emergency Medicine; PCP Nurse Practitioner Family
DX: R20.2 Paresthesia of skin (principal); G43.809 Other migraine, not intractable, without status migrainosus; Z79.82 Long term (current) use of aspirin; Z79.84 Long term (current) use of oral hypoglycemic drugs; Z77.22 Contact with and (suspected) exposure to environmental tobacco smoke (acute) (chronic); J44.9 Chronic obstructive pulmonary disease, unspecified; Z86.73 Personal history of transient ischemic attack (TIA), and cerebral infarction without residual deficits; E11.9 Type 2 diabetes mellitus without complications
CPT/HCPCS: 70450; 71045; 80053; 85025; 85610; 85730; 93005; 96365; 99285; J3490

== ENCOUNTER 2022-08-29 06:00 | Outpatient (RCR) | payer MEDICAID, SELFPAY ==
[2022-08-06 15:09] VITALS: BP 146/91; BMI 35.5
== END 2022-09-27 23:59 | disposition home or self-care (01) ==
LOC: TPT 06:00
PROVIDERS: PCP Nurse Practitioner Family; Visit Provider Nurse Practitioner Family
DX: M54.9 Dorsalgia, unspecified (principal); G89.29 Other chronic pain
CPT/HCPCS: 97110

== ENCOUNTER 2022-09-06 20:04 | Emergency (ER) | payer MEDICAID, SELFPAY ==
[2022-08-06 15:09] VITALS: BP 146/91; BMI 35.5
[2022-09-06 20:07] VITALS: BP 146/96; PULSE 115; RESP 20; TEMP 36.6; O2SAT 97
--- NOTE | 2022-09-06 20:20 | ED_ITS ---
HPI - URI/Sore Throat General: Chief Complaint: Upper Respiratory Infection Stated Complaint: Conjestion\Cough Time Seen by Provider: 09/06/22 20:13 History of Present Illness: 51-year-old female comes in today with complaints of sore throat, cough and congestion. Patient reports her main concern is persistent coughing. Patient appears nontoxic. Patient appears no acute distress. Patient was treated last week with azithromycin and prednisone. Associated symptoms: Deny chest pain, fever(s), nausea or vomiting Review of Systems General: Reports: 10 or more systems reviewed and unremarkable except in HPI and below Const: Denies: fever(s) ENMT: Reports: throat pain Card: Denies: chest pain Resp: Denies: dyspnea GI: Denies: nausea or vomiting Musc: Denies: neck pain PFSH ED PFSH: Medical History COPD (chronic obstructive pulmonary disease) CVA (cerebral vascular accident) Depression Diabetes mellitus, controlled GERD (gastroesophageal reflux disease) Major depressive disorder, recurrent, moderate YAIR (obstructive sleep apnea) Psychiatric care Surgical History H/O laparoscopy H/O: hysterectomy History of cholecystectomy History of colonoscopy History of tubal ligation Hx of oophorectomy Family History Father CAD (coronary artery disease) Cancer Diabetes Hyperlipidemia Mother Hypertension Psychiatric illness Brother Hypertension Social History Smoking and tobacco status: never smoked Second hand smoke exposure: Yes Alcohol intake: current Alcohol intake frequency: holidays/special occasions only Alcohol type: other Adopted: No Caregiver/support person: No Lives independently: Yes Household members: significant other and children Housing: Apartment Marital status: Marital status details: currently lives with ex husbanc Number of children: 3 Number of grandchildren: 7 Highest education level completed: High School Graduate service: No Current occupational status: employed Current occupation: [employer], [employer] Current occupational exposures/hazards: No Pets and animals: Yes (4 tiny dogs) Pets & animals: dog(s) Leisure activites: art Sexually active: No Current gender identity: Female Merced/Shinto: Yazidism Special merced needs: No Agree to transfusion: No (Jehova's Witness) Financial difficulty paying for basics: Hard Female Reproductive History: Para: 3 Spontaneous abortions: Yes (X 3) Physical Exam Const: COMMON NORMALS: alert HENMT: THROAT: abnormal tonsil bilateral hypertrophy and posterior oropharynx abnormal erythema Neck/C-Spine: GENERAL: Yes normal visual inspection Resp: COMMON NORMALS: normal respiratory effort AUSCULTATION: rhonchi (Anterior) Cardio: COMMON NORMALS: regular rate and regular rhythm RATE: regular rate RHYTHM: regular rhythm : COMMON NORMALS: Yes no CVA tenderness BLADDER/KIDNEY EXAM: Yes no CVA tenderness Back/Pelvis: COMMON NORMALS: no CVA tenderness Extremity: COMMON NORMALS: no pedal edema Neuro: SENSORIUM/ORIENTATION: Yes alert Skin: COMMON NORMALS: turgor normal GENERAL SKIN EXAM: turgor normal Course Vital Signs: Vital signs: Vital Signs Temperature 97.9 F 09/06/22 20:07 Pulse Rate 115 H 09/06/22 20:07 Respiratory Rate 20 H 09/06/22 20:07 Blood Pressure 146/96 09/06/22 20:07 Pulse Oximetry 97 09/06/22 20:07 MDM - URI/Sore Throat Medical Decision Making 51-year-old female comes in today with persistent coughing and congestion. Patient reports treatment with antibiotics 1 week ago. Patient appears nontoxic. Patient appears in no acute distress. On exam patient posterior pharynx shows some tonsillar enlargement. Lungs have good air movement throughout with occasional light rhonchi in the anterior chest field. Differential diagnosis includes bronchitis, tonsillitis, upper respiratory infection, postviral cough. Patient is stable without any signs of severe illness. Patient will be started on cephalexin 500 mg 3 times a day for the next 7 days. Patient was given 10 mg of dexamethasone. Patient was refilled for her albuterol inhaler and nebulizer solution. Patient was recommended to follow-up with primary care return to the ED for worsening shortness of breath or new concerns. Discharge Plan Discharge Patient Disposition: Home Clinical Impression: Acute tonsillitis, Bronchitis Condition: Stable Prescriptions: New cephalexin 250 mg/5 mL suspension for reconstitution 500 mg PO TID 7 Days Qty: 200 0RF promethazine-DM 6.25-15 mg/5 mL syrup 5 ml PO Q6H PRN (Reason: cough) Qty: 118 0RF Continued albuterol sulfate 2.5 mg /3 mL (0.083 %) solution for nebulization 2.5 mg inhalation QID PRN (Reason: shortness of breath or wheezing) Qty: 180 2RF albuterol sulfate 90 mcg/actuation HFA aerosol inhaler 2 puff inhalation Q6H PRN (Reason: shortness of breath or wheezing) Qty: 16 0RF Discontinued azithromycin 200 mg/5 mL suspension for reconstitution See Rx Instructions PO .COMPLEX Qty: 30 0RF Rx Instructions: 12.5ml (500mg) the first day, 6.25ml (250mg) days 2-5. No Action (DME) blood-glucose meter [Blood Glucose Monitoring] Kit See Rx Instructions .ROUTE .MEDSUPPLY Qty: 1 0RF Rx Instructions: check blood sugar daily as directed (DME) Blood Glucose Test Strip See Rx Instructions .ROUTE .MEDSUPPLY Qty: 100 3RF Rx Instructions: check blood sugar (DME) lancets [BD Ultra Fine Lancets] 33 gauge misc See Rx Instructions .ROUTE .MEDSUPPLY Qty: 100 3RF Rx Instructions: check blood sugar daily as directed Spiriva with HandiHaler 18 mcg capsule, w/inhalation device 1 cap INHALATION DAILY@07 Qty: 90 2RF Rx Instructions: puncture 1 cap using device; one dose = 2 inhalations albuterol sulfate 90 mcg/actuation aerosol powdr breath activated 2 inh INHALATION Q6H PRN (Reason: shortness of breath or wheezing) Qty: 1 2RF rosuvastatin 20 mg tablet 20 mg PO DAILY polyethylene glycol 3350 [Miralax] 17 gram/dose powder 17 g PO DAILY PRN (Reason: Acid Reflux) nitroglycerin [Nitrostat] 0.4 mg tablet, sublingual 0.4 mg SUBLINGUAL Q5M PRN (Reason: Chest Pain) Qty: 25 3RF fluticasone propion-salmeterol [Advair Diskus] 500-50 mcg/dose blister with device 1 inh inhalation BID Qty: 60 3RF fluoxetine 20 mg/5 mL (4 mg/mL) solution 60 mg PO DAILY@07 Qty: 450 3RF azelastine 137 mcg (0.1 %) aerosol,spray 1 spray intranasal BID 30 Days Qty: 30 6RF Rx Instructions: administer into each nostril fluticasone propionate [Flonase Allergy Relief] 50 mcg/actuation spray,suspension 2 spray intranasal DAILY 30 Days Qty: 15.8 6RF Rx Instructions: administer into each nostril prednisone 5 mg/5 mL solution 20 mg PO DAILY 5 Days Qty: 120 0RF (DME) pen needle, diabetic 32 gauge x 5/32 needle See Rx Instructions .Route Qty: 100 3RF Rx Instructions: As directed pantoprazole [Protonix] 40 mg tablet,delayed release (DR/EC) 40 mg PO BID Qty: 28 0RF Victoza 3-Rahul 0.6 mg/0.1 mL (18 mg/3 mL) pen injector See Rx Instructions .ROUTE .COMPLEX Qty: 27 0RF Dose Instruction: INJECT 0.6MG SUBCUTANEOUSLY ONCE DAILY FOR ONE WEEK THEN 1.2MG DAILY FOR ONE WEEK, THEN 1.8MG DAILY AND CONTINUE Rx Instructions: INJECT 0.6MG SUBCUTANEOUSLY ONCE DAILY FOR ONE WEEK THEN 1.2MG DAILY FOR ONE WEEK, THEN 1.8MG DAILY AND CONTINUE metformin 500 mg tablet See Rx Instructions .ROUTE .COMPLEX Qty: 60 0RF Dose Instruction: Take 2 tablets by mouth twice daily Rx Instructions: Take 2 tablets by mouth twice daily oxybutynin chloride 10 mg tablet extended release 24hr See Rx Instructions .ROUTE .COMPLEX Qty: 14 0RF Dose Instruction: TAKE 1 TABLET BY MOUTH ONCE DAILY . APPOINTMENT REQUIRED FOR FUTURE REFILLS Rx Instructions: TAKE 1 TABLET BY MOUTH ONCE DAILY . APPOINTMENT REQUIRED FOR FUTURE REFILLS (DME) OneTouch Ultra Test Strip See Rx Instructions .ROUTE .COMPLEX Qty: 50 0RF Dose Instruction: USE 1 STRIP TO CHECK GLUCOSE ONCE DAILY DIRECTED . APPOINTMENT REQUIRED FOR FUTURE REFILLS Rx Instructions: USE 1 STRIP TO CHECK GLUCOSE ONCE DAILY DIRECTED . APPOINTMENT REQUIRED FOR FUTURE REFILLS aspirin 81 mg Tablet,Delayed Release (Dr/Ec) 81 mg PO DAILY omeprazole 20 mg capsule,delayed release(DR/EC) 20 mg PO DAILY Qty: 90 0RF Hold Instructions: Resume on 10/31/21. ondansetron 4 mg tablet,disintegrating 4 mg PO Q8H PRN (Reason: nausea and vomiting) Qty: 10 0RF Discharge Orders: Discharge ED (Routine); Ordered 04/09/23 Ordered By: Scott Song Referrals: Suzette Bowman FNP [Primary Care Provider] - Discharge Diet: Usual diet Discharge Activity: Increase activity as tolerated Patient Instructions: Acute Bronchitis (ED) Activity Restrictions/Additional Instructions: Drink plenty of water. Continue with routine medications as directed. Follow- up with primary care in 2 to 3 days for recheck. Return to ED for new concerns. Coding Level of Care Code ED Application Systems Architect for Toni Ramírez
[2022-09-06] MEDS: dexamethasone 10 mg/mL INJ IM (20:46)
[2022-09-06] MEDS: promethazine-dm 6.25-15 mg/5 mL SYRUP (5 mL UD) PO (21:01)
== END 2022-09-06 21:08 | disposition home or self-care (01) ==
PROVIDERS: Emergency Provider Nurse Practitioner Family; PCP Nurse Practitioner Family
DX: J03.90 Acute tonsillitis, unspecified (principal); J40 Bronchitis, not specified as acute or chronic; Z79.82 Long term (current) use of aspirin; Z79.84 Long term (current) use of oral hypoglycemic drugs; J44.9 Chronic obstructive pulmonary disease, unspecified; Z86.73 Personal history of transient ischemic attack (TIA), and cerebral infarction without residual deficits; E11.9 Type 2 diabetes mellitus without complications; Z77.22 Contact with and (suspected) exposure to environmental tobacco smoke (acute) (chronic)
CPT/HCPCS: 96372; 99285; J1100

== ENCOUNTER → 2022-09-16 10:11 | Outpatient (BNVA) | payer MEDICAID, SELFPAY ==
[2022-08-06 15:09] VITALS: BP 146/91; BMI 35.5
== END ==
PROVIDERS: PCP Nurse Practitioner Family; Visit Provider Otolaryngology
DX: H90.11 Conductive hearing loss, unilateral, right ear, with unrestricted hearing on the contralateral side (principal); H65.01 Acute serous otitis media, right ear; H69.81 Other specified disorders of Eustachian tube, right ear
CPT/HCPCS: 99213

== ENCOUNTER 2022-09-19 20:41 | Emergency (ER) | payer MEDICAID, SELFPAY ==
[2022-08-06 15:09] VITALS: BP 146/91; BMI 35.5
[2022-09-19 20:49] VITALS: BP 138/97; PULSE 124; RESP 16; TEMP 38; O2SAT 95
--- NOTE | 2022-09-19 21:04 | XRR_ITS ---
PROCEDURE INFORMATION: Exam: XR Chest Exam date and time: 09/19/2022 10:26 PM Age: 51 years old Clinical indication: Cough TECHNIQUE: Imaging protocol: Radiologic exam of the chest. Views: 1 view. COMPARISON: CR XR chest 1V portable [id number] 07/31/2022 8:36 PM FINDINGS: Lungs: The lung bases are suboptimally assessed due to technique however the upper lungs are clear of focal consolidation. Pleural spaces: Unremarkable. No pleural effusion. No pneumothorax. Heart/Mediastinum: Cardiac silhouette appears normal in size. No obvious vascular congestion. Bones/joints: No acute osseous findings. Other findings: Single view was submitted. XR/XR chest 1V portable [id number] IMPRESSION: No obvious acute consolidation. Suboptimal lung base assessment. Followup including lateral view may be obtained if clinically indicated.
[2022-09-19 21:25] LABS: Add Urine Microscopic? YES; Bilirubin Urine Neg (Negative); Blood Urine 2+ (Negative); Glucose Urine UA Norm (Normal); Ketones Urine Negative (Negative); Leukocyte Esterase Urine Negative (Negative); Nitrate Urine Negative (Negative); Protein Urine Neg (Negative); Urine Appearance Clear (CLEAR); Urine Color Yellow (Yellow); Urobilinogen Urine 1 mg/dL (Negative); pH Urine 5 (5-7)
[2022-09-19 21:26] LABS: Mucus Urine 2+ /hpf
[2022-09-19 21:27] LABS: Bacteria Urine TRACE /hpf; RBC Urine 0-4 /hpf (0-2); Squamous Epithelial Cell Urine 0-4 /hpf (0-5); WBC Urine 0-4 /hpf (0-5)
[2022-09-19 21:35] LABS: SARS Covid-2 Antigen negative (Negative)
[2022-09-19 21:36] LABS: Influenza A by IFA negative (Negative); Influenza B by IFA negative (Negative)
[2022-09-19 22:10] LABS: Basophils % 0.4 %; Eosinophils # 0.1 10^3/uL (0.0-0.8); Eosinophils % 1.3 %; Hematocrit 43.9 % (37.0-47.0); Hemoglobin 14.2 g/dL (11.5-15.3); Lymphocytes # 1.2 10^3/uL (0.8-4.8); Mean Corpuscular HGB Conc 32.3 g/dL (30.0-36.0); Mean Corpuscular Hemoglobin 28.5 pg (28.0-34.0); Mean Corpuscular Volume 88.2 fl (81-99); Mean Platelet Volume 9.8 fL (7.4-10.4); Monocytes # 0.9 10^3/uL (0.2-0.9); Monocytes % 8.2 %; Neutrophils % 78.7 %; Nucleated Red Blood Cells % 0 %; Platelet Count 268 10^3/cmm (130-400); Red Blood Count 4.98 10^6/uL (4.1-5.3); Red Cell Distribution Width 13.4 % (12.1-15.1); White Blood Count 10.7 10^3/uL (4.0-10.0)
[2022-09-19 22:28] LABS: Alanine Aminotransferase 23 U/L (0-33); Alkaline Phosphatase 110 U/L (35-105); Anion Gap 11.4 (5-19); Aspartate Amino Transferase 21 U/L (0-32); Blood Urea Nitrogen 8 mg/dL (6-20); Calcium 8.7 mg/dL (8.5-10.5); Carbon Dioxide 24 mmol/L (22-29); Chloride 96 mmol/L (98-107); Globulin 3.5 g/dL (1.3-4.6); Glomerular Filtration Rate 88.6 mL/min (90-130); Glucose 119 mg/dL (65-115); Osmolality Calculated 265 mOsm/kg (285-295); Potassium 3.4 mmol/L (3.5-5.1); Sodium 128 mmol/L (136-145); Total Bilirubin 0.3 mg/dL (0.15-1.2); Total Protein 7.5 g/dL (6.6-8.7)
[2022-09-19 23:23] VITALS: BP 135/86; PULSE 118; RESP 16; TEMP 37.1; O2SAT 93
[2022-09-19] MEDS: sodium chloride 0.9% 1,000 ML 999 ML IV (23:47)
[2022-09-19] MEDS: ketorolac 30 mg/mL INJ IVP (23:47)
[2022-09-19] MEDS: cefTRIAXone 1,000 MG in sodium chloride 0.9% (plus) 50 ML 100 MG IV (23:47)
--- NOTE | 2022-09-20 00:55 | ED_ITS ---
HPI - Fever General: Chief Complaint: Fever Stated Complaint: fever, face swelling Time Seen by Provider: 09/19/22 23:05 Source: patient History of Present Illness: 51-year-old female presenting with 3 weeks of congestion, cough, fevers etc. No significant sputum production. She has been on 3 different antibiotics. She has been on steroids. She has not seemed to improve significantly. She was running a temperature earlier tonight. MD elicited complaint: fever Onset (ago): week(s) Relieving factors: nothing Associated symptoms: Reports chills, cough, nasal congestion, nausea, rhinorrhea, short of breath and sore throat; Deny abdominal pain, flank pain, chest pain, dysuria, headache(s) or vomiting Review of Systems Const: Reports: chills ENMT: Reports: throat pain and nasal congestion Card: Denies: chest pain Resp: Reports: dyspnea and non-productive cough GI: Reports: nausea; Denies: abdominal pain or vomiting : Denies: flank pain or dysuria Neuro: Denies: headache(s) PFSH ED PFSH: Medical History COPD (chronic obstructive pulmonary disease) CVA (cerebral vascular accident) Depression Diabetes mellitus, controlled GERD (gastroesophageal reflux disease) Major depressive disorder, recurrent, moderate YAIR (obstructive sleep apnea) Psychiatric care Surgical History H/O laparoscopy H/O: hysterectomy History of cholecystectomy History of colonoscopy History of tubal ligation Hx of oophorectomy Family History Father CAD (coronary artery disease) Cancer Diabetes Hyperlipidemia Mother Hypertension Psychiatric illness Brother Hypertension Social History Smoking and tobacco status: never smoked Second hand smoke exposure: Yes Alcohol intake: current Alcohol intake frequency: holidays/special occasions only Alcohol type: other Substance/Drug Use: never Adopted: No Caregiver/support person: No Lives independently: Yes Household members: significant other and children Housing: Apartment Marital status: Marital status details: currently lives with ex husbanc Number of children: 3 Number of grandchildren: 7 Highest education level completed: High School Graduate service: No Current occupational status: employed Current occupation: [employer] Current occupational exposures/hazards: No Pets and animals: Yes (4 tiny dogs) Pets & animals: dog(s) Leisure activites: art Sexually active: No Do you think of yourself as: Straight/Heterosexual Current gender identity: Female Merced/Lutheran: Holiness Special merced needs: No Agree to transfusion: No (Jehova's Witness) Financial difficulty paying for basics: Hard Female Reproductive History: Para: 3 Spontaneous abortions: Yes (X 3) Physical Exam Const: COMMON NORMALS: no acute distress GENERAL APPEARANCE: cooperative; not ill appearing and not frail appearing HENMT: COMMON NORMALS: normocephalic, atraumatic and Normal external nose present HEAD & SCALP: normocephalic and atraumatic FACE & SINUS: normal facial exam and face symmetric NOSE: Normal external nose present and Normal nares present Eye: COMMON NORMALS: Equal, round and reactive pupils present and EOMs intact bilaterally PUPIL: Yes Equal, round and reactive pupils present Neck/C-Spine: GENERAL: Yes trachea midline Chest: CHEST: Yes Symmetrical chest wall rise Resp: COMMON NORMALS: normal respiratory effort, No retractions, No use of accessory muscles and clear to auscultation bilaterally AUSCULTATION: clear to auscultation bilaterally Cardio: COMMON NORMALS: regular rate and regular rhythm RATE: regular rate RHYTHM: regular rhythm GI: COMMON NORMALS: Normal to inspection, nondistended, normoactive bowel sounds present Extremity: COMMON NORMALS: no pedal edema Neuro: BETH COMA SCALE: document GCS findings [place] coma scale eye opening: Spontaneous [place] coma scale verbal response: Orientated Beth coma scale motor response: Obey commands Beth coma scale total score: 15 SENSORY EXAM: Yes extremities (intact) Psych: COMMON NORMALS: speech normal SPEECH: Yes normal speech Skin: COMMON NORMALS: no rashes or lesions noted GENERAL SKIN EXAM: no rashes or lesions noted Course Vital Signs: Vital signs: Vital Signs Temperature 98.8 F 09/20/22 01:29 Pulse Rate 118 H 09/20/22 01:29 Respiratory Rate 16 09/20/22 01:29 Blood Pressure 135/86 09/20/22 01:29 Pulse Oximetry 93 09/20/22 01:29 Oxygen Delivery Me thod Room Air 09/19/22 20:49 MDM - Fever Medical Decision Making 51-year-old female. She is mildly tachycardic. She was running a temperature earlier 100.4. Other vitals are normal. White blood cell count is 10.7. Hemoglobin 14. Sodium 128. Glucose 119. She has received a liter bolus here. Chest x-ray shows no obvious pneumonia. Suspect she has rhinosinusitis is becoming chronic. Treated with 2 weeks of doxycycline as well as a tapering dose of steroid. She will follow-up as an outpatient. She is to return if worsening. Lab Data 09/19/22 22:05 09/19/22 22:05 Radiology Impressions Chest X-Ray 09/19/22 21:04 IMPRESSION: No obvious acute consolidation. Suboptimal lung base assessment. Followup including lateral view may be obtained if clinically indicated. Laboratory Results WBC 10.7 10^3/uL (4.0-10.0) H 09/19/22 22:05 RBC 4.98 10^6/uL (4.1-5.3) 09/19/22 22:05 Hgb 14.2 g/dL (11.5-15.3) 09/19/22 22:05 Hct 43.9 % (37.0-47.0) 09/19/22 22:05 MCV 88.2 fl (81-99) 09/19/22 22:05 MCH 28.5 pg (28.0-34.0) 09/19/22 22:05 MCHC 32.3 g/dL (30.0-36.0) 09/19/22 22:05 RDW 13.4 % (12.1-15.1) 09/19/22 22:05 Plt Count 268 10^3/cmm (130-400) 09/19/22 22:05 MPV 9.8 fL (7.4-10.4) 09/19/22 22:05 Neut % (Auto) 78.7 % 09/19/22 22: Lymph % (Auto) 11.0 % 09/19/22 22:05 Mathews % (Auto) 8.2 % 09/19/22 22:05 Eos % (Auto) 1.3 % 09/19/22 22:05 Baso % (Auto) 0.4 % 09/19/22 22:05 Neut # (Auto) 8.40 10^3/uL (1.8-7.7) H 09/19/22 22:05 Lymph # (Auto) 1.2 10^3/uL (0.8-4.8) 09/19/22 22:05 Mathews # (Auto) 0.9 10^3/uL (0.2-0.9) 09/19/22 22:05 Eos # (Auto) 0.1 10^3/uL (0.0-0.8) 09/19/22 22:05 Baso # (Auto) 0.0 10^3/uL (0.0-0.1) 09/19/22 22:05 Nucleated RBC % (auto) 0 % 09/19/22 22:05 Nucleated RBCs # 0.0 /100WBC 09/19/22 22:05 Sodium 128 mmol/L (136-145) L 09/19/22 22:05 Potassium 3.4 mmol/L (3.5-5.1) L 09/19/22 22:05 Chloride 96 mmol/L (98-107) L 09/19/22 22:05 Carbon Dioxide 24 mmol/L (22-29) 09/19/22 22:05 Anion Gap 11.4 (5-19) 09/19/22 22:05 BUN 8 mg/dL (6-20) 09/19/22 22:05 Creatinine 0.7 mg/dL (0.5-0.9) 09/19/22 22:05 GFR Calculation 88.6 mL/min (90-130) L 09/19/22 22:05 Glucose 119 mg/dL (65-115) H 09/19/22 22:05 Calculated Osmolality 265 mOsm/kg (285-295) L 09/19/22 22:05 Calcium 8.7 mg/dL (8.5-10.5) 09/19/22 22:05 Total Bilirubin 0.3 mg/dL (0.15-1.2) 09/19/22 22:05 AST 21 U/L (0-32) 09/19/22 22:05 ALT 23 U/L (0-33) 09/19/22 22:05 Alkaline Phosphatase 110 U/L (35-105) H 09/19/22 22:05 Total Protein 7.5 g/dL (6.6-8.7) 09/19/22 22:05 Albumin 4.0 g/dL (3.5-5.2) 09/19/22 22:05 Globulin 3.5 g/dL (1.3-4.6) 09/19/22 22:05 Urine Color Yellow (Yellow) 09/19/22 21:10 Urine Appearance Clear (CLEAR) 09/19/22 21:10 Urine pH 5 (5-7) 09/19/22 21:10 Ur Specific Peel 1.020 (1.005-1.030) 09/19/22 21:10 Urine Protein Neg (Negative) 09/19/22 21:10 Urine Glucose (UA) Norm (Normal) 09/19/22 21:10 Urine Ketones Negative (Negative) 09/19/22 21:10 Urine Blood 2+ (Negative) H 09/19/22 21:10 Urine Nitrate Negative (Negative) 09/19/22 21:10 Urine Bilirubin Neg (Negative) 09/19/22 21:10 Urine Urobilinogen 1 mg/dL (Negative) H 09/19/22 21:10 Ur Leukocyte Esterase Negative (Negative) 09/19/22 21:10 Urine RBC 0-4 /hpf (0-2) H 09/19/22 21:10 Urine WBC 0-4 /hpf (0-5) H 09/19/22 21:10 Ur Squamous Epith Cells 0-4 /hpf (0-5) H 09/19/22 21:10 Amorphous Sediment Not Reportable 09/19/22 21:10 Urine Bacteria Trace /hpf (NONE) 09/19/22 21:10 Urine Mucus 2+ /hpf 09/19/22 21:10 Influenza Type A Ag negative (Negative) 09/19/22 21:10 Influenza Type B Ag negative (Negative) 09/19/22 21:10 SARS-CoV-2 Ag (Rapid) negative (Negative) 09/19/22 21:10 Discharge Plan Discharge Patient Disposition: Home Clinical Impression: Rhinosinusitis Condition: Stable Prescriptions: New Medrol (Rahul) 4 mg tablets,dose pack See Rx Instructions .ROUTE .COMPLEX Qty: 21 0RF Rx Instructions: orally per package directions doxycycline hyclate 100 mg tablet 100 mg PO BID 14 Days Qty: 28 0RF No Action (DME) blood-glucose meter [Blood Glucose Monitoring] Kit See Rx Instructions .ROUTE .MEDSUPPLY Qty: 1 0RF Rx Instructions: check blood sugar daily as directed (DME) Blood Glucose Test Strip See Rx Instructions .ROUTE .MEDSUPPLY Qty: 100 3RF Rx Instructions: check blood sugar (DME) lancets [BD Ultra Fine Lancets] 33 gauge misc See Rx Instructions .ROUTE .MEDSUPPLY Qty: 100 3RF Rx Instructions: check blood sugar daily as directed Spiriva with HandiHaler 18 mcg capsule, w/inhalation device 1 cap INHALATION DAILY@07 Qty: 90 2RF Rx Instructions: puncture 1 cap using device; one dose = 2 inhalations albuterol sulfate 90 mcg/actuation aerosol powdr breath activated 2 inh INHALATION Q6H PRN (Reason: shortness of breath or wheezing) Qty: 1 2RF rosuvastatin 20 mg tablet 20 mg PO DAILY polyethylene glycol 3350 [Miralax] 17 gram/dose powder 17 g PO DAILY PRN (Reason: Acid Reflux) nitroglycerin [Nitrostat] 0.4 mg tablet, sublingual 0.4 mg SUBLINGUAL Q5M PRN (Reason: Chest Pain) Qty: 25 3RF fluticasone propion-salmeterol [Advair Diskus] 500-50 mcg/dose blister with device 1 inh inhalation BID Qty: 60 3RF fluoxetine 20 mg/5 mL (4 mg/mL) solution 60 mg PO DAILY@07 Qty: 450 3RF fluticasone propionate 50 mcg/actuation spray,suspension 2 spray intranasal DAILY 360 Days Qty: 16 11RF Rx Instructions: administer into each nostril azelastine 137 mcg (0.1 %) aerosol,spray 1 spray intranasal BID 30 Days Qty: 30 6RF Rx Instructions: administer into each nostril fluticasone propionate [Flonase Allergy Relief] 50 mcg/actuation spray,suspension 2 spray intranasal DAILY 30 Days Qty: 15.8 6RF Rx Instructions: administer into each nostril prednisone 5 mg/5 mL solution 20 mg PO DAILY 5 Days Qty: 120 0RF (DME) pen needle, diabetic 32 gauge x 5/32 needle See Rx Instructions .Route Qty: 100 3RF Rx Instructions: As directed pantoprazole [Protonix] 40 mg tablet,delayed release (DR/EC) 40 mg PO BID Qty: 28 0RF Victoza 3-Rahul 0.6 mg/0.1 mL (18 mg/3 mL) pen injector See Rx Instructions .ROUTE .COMPLEX Qty: 27 0RF Dose Instruction: INJECT 0.6MG SUBCUTANEOUSLY ONCE DAILY FOR ONE WEEK THEN 1.2MG DAILY FOR ONE WEEK, THEN 1.8MG DAILY AND CONTINUE Rx Instructions: INJECT 0.6MG SUBCUTANEOUSLY ONCE DAILY FOR ONE WEEK THEN 1.2MG DAILY FOR ONE WEEK, THEN 1.8MG DAILY AND CONTINUE metformin 500 mg tablet See Rx Instructions .ROUTE .COMPLEX Qty: 60 0RF Dose Instruction: Take 2 tablets by mouth twice daily Rx Instructions: Take 2 tablets by mouth twice daily oxybutynin chloride 10 mg tablet extended release 24hr See Rx Instructions .ROUTE .COMPLEX Qty: 14 0RF Dose Instruction: TAKE 1 TABLET BY MOUTH ONCE DAILY . APPOINTMENT REQUIRED FOR FUTURE REFILLS Rx Instructions: TAKE 1 TABLET BY MOUTH ONCE DAILY . APPOINTMENT REQUIRED FOR FUTURE REFILLS (DME) OneTouch Ultra Test Strip See Rx Instructions .ROUTE .COMPLEX Qty: 50 0RF Dose Instruction: USE 1 STRIP TO CHECK GLUCOSE ONCE DAILY DIRECTED . APPOINTMENT REQUIRED FOR FUTURE REFILLS Rx Instructions: USE 1 STRIP TO CHECK GLUCOSE ONCE DAILY DIRECTED . APPOINTMENT REQUIRED FOR FUTURE REFILLS aspirin 81 mg Tablet,Delayed Release (Dr/Ec) 81 mg PO DAILY omeprazole 20 mg capsule,delayed release(DR/EC) 20 mg PO DAILY Qty: 90 0RF Hold Instructions: Resume on 10/31/21. ondansetron 4 mg tablet,disintegrating 4 mg PO Q8H PRN (Reason: nausea and vomiting) Qty: 10 0RF promethazine-DM 6.25-15 mg/5 mL syrup 5 ml PO Q6H PRN (Reason: cough) Qty: 118 0RF albuterol sulfate 2.5 mg /3 mL (0.083 %) solution for nebulization 2.5 mg inhalation QID PRN (Reason: shortness of breath or wheezing) Qty: 180 2RF albuterol sulfate 90 mcg/actuation HFA aerosol inhaler 2 puff inhalation Q6H PRN (Reason: shortness of breath or wheezing) Qty: 16 0RF Discharge Orders: Discharge ED (Routine); Ordered 09/20/22 Ordered By: Greg Stephens Referrals: Suzette Bowman FNP [Primary Care Provider] - 1-3 days Patient Instructions: Rhinosinusitis (ED) Stand Alone Forms: Work/School Release Coding Level of Care Code ED [employer] for Toni Ramírez
[2022-09-20 01:29] VITALS: BP 135/86; PULSE 118; RESP 16; TEMP 37.1; O2SAT 93
== END 2022-09-20 01:30 | disposition home or self-care (01) ==
PROVIDERS: Emergency Medicine; Emergency Provider Emergency Medicine; PCP Nurse Practitioner Family
DX: J32.9 Chronic sinusitis, unspecified (principal); Z79.82 Long term (current) use of aspirin; Z79.84 Long term (current) use of oral hypoglycemic drugs; Z20.822 Contact with and (suspected) exposure to COVID-19; Z77.22 Contact with and (suspected) exposure to environmental tobacco smoke (acute) (chronic); J44.9 Chronic obstructive pulmonary disease, unspecified; Z86.73 Personal history of transient ischemic attack (TIA), and cerebral infarction without residual deficits; E11.9 Type 2 diabetes mellitus without complications
CPT/HCPCS: 36415; 71045; 80053; 81001; 85025; 87426; 87804; 96365; 96366; 96375; 99284; J0696; J1885; J7030

== ENCOUNTER 2022-09-28 06:00 | Outpatient (RCR) | payer MEDICAID, SELFPAY ==
[2022-08-06 15:09] VITALS: BP 146/91; BMI 35.5
== END 2022-10-28 23:59 | disposition home or self-care (01) ==
LOC: TPT 06:00
PROVIDERS: PCP Nurse Practitioner Family; Visit Provider Nurse Practitioner Family
DX: M54.50 Low back pain, unspecified (principal); G89.29 Other chronic pain
CPT/HCPCS: 97110; 97530

== ENCOUNTER → 2022-09-29 13:52 | Outpatient (BNVA) | payer MEDICAID, SELFPAY ==
[2022-08-06 15:09] VITALS: BP 146/91; BMI 35.5
== END ==
PROVIDERS: PCP Nurse Practitioner Family; Visit Provider Internal Medicine
DX: E11.9 Type 2 diabetes mellitus without complications (principal); E78.5 Hyperlipidemia, unspecified; R00.0 Tachycardia, unspecified; R63.5 Abnormal weight gain; K21.9 Gastro-esophageal reflux disease without esophagitis; E87.1 Hypo-osmolality and hyponatremia; Z79.84 Long term (current) use of oral hypoglycemic drugs; Z68.34 Body mass index [BMI] 34.0-34.9, adult
CPT/HCPCS: 36415; 80048; 83036; 99214

== ENCOUNTER 2022-10-03 13:57 | Emergency (ER) | payer OTHER, SELFPAY ==
[2022-08-06 15:09] VITALS: BP 146/91; BMI 35.5
[2022-10-03 14:08] VITALS: BP 135/85; PULSE 91; RESP 18; TEMP 36.6; O2SAT 97; BMI 34.7
--- NOTE | 2022-10-03 14:57 | ED_ITS ---
HPI - Back Pain/Injury General: Chief Complaint: Back Pain/Injury Stated Complaint: Back injury, WC Time Seen by Provider: 10/03/22 14:21 History of Present Illness: Patient is a 51-year-old female comes to the ED with back pain. Patient rates pain currently a 10 out of 10 and its located in the right side of her lower back. She injured her back earlier today while at work it all days. She states she was lifting a case of villegas and twisted to put a case into trunk of vehicle and felt the pain in the right side of her lower back. Patient does endorse some pain radiating down right leg. Denies any cauda equina symptoms. Associated symptoms: Deny abdominal pain, chills, dysuria, fatigue, fever(s), hematuria, nausea or vomiting Review of Systems Const: Denies: fever(s), chills or fatigue Eyes: Denies: change in vision or eye discomfort ENMT: Denies: throat pain, odynophagia, nasal discharge or nasal congestion Card: Denies: chest pain, palpitations, edema, swelling of feet/ankles, dyspnea on exertion or orthopnea Resp: Denies: dyspnea, productive cough or non-productive cough GI: Denies: abdominal pain, nausea, vomiting, diarrhea, constipation or hematochezia : Denies: flank pain, dysuria or hematuria Musc: Reports: back pain; Denies: neck pain or extremity swelling Skin/Breast: Denies: rash or new lesions Neuro: Denies: headache(s), numbness in extremities or weakness in extremities PFS ED PFSH: Medical History COPD (chronic obstructive pulmonary disease) CVA (cerebral vascular accident) Depression Diabetes mellitus, controlled GERD (gastroesophageal reflux disease) Major depressive disorder, recurrent, moderate YAIR (obstructive sleep apnea) Psychiatric care Surgical History H/O laparoscopy H/O: hysterectomy History of cholecystectomy History of colonoscopy History of tubal ligation Hx of oophorectomy Family History Father CAD (coronary artery disease) Cancer Diabetes Hyperlipidemia Mother Hypertension Psychiatric illness Brother Hypertension Social History Smoking and tobacco status: never smoked Second hand smoke exposure: Yes Alcohol intake: current Alcohol intake frequency: holidays/special occasions only Alcohol type: other Substance/Drug Use: never Adopted: No Caregiver/support person: No Lives independently: Yes Household members: significant other and children Housing: Apartment Marital status: Marital status details: currently lives with ex abrahambanc Number of children: 3 Number of grandchildren: 7 Highest education level completed: High School Graduate service: No Current occupational status: employed Current occupation: [employer] Current occupational exposures/hazards: No Pets and animals: Yes (4 tiny dogs) Pets & animals: dog(s) Leisure activites: art Sexually active: No Do you think of yourself as: Straight/Heterosexual Current gender identity: Female Merced/Mandaeism: Anabaptism Special merced needs: No Agree to transfusion: No (Jehova's Witness) Financial difficulty paying for basics: Hard Female Reproductive History: Para: 3 Spontaneous abortions: Yes (X 3) Physical Exam Const: COMMON NORMALS: no acute distress, patient oriented x3 and alert GENERAL APPEARANCE: cooperative and comfortable HENMT: COMMON NORMALS: normocephalic HEAD & SCALP: normocephalic MOUTH: Normal oral and palatal mucosa present THROAT: posterior oropharynx normal and uvula midline Neck/C-Spine: COMMON NORMALS: supple GENERAL: Yes normal visual inspection Resp: COMMON NORMALS: normal respiratory effort, No retractions, No use of accessory muscles and clear to auscultation bilaterally AUSCULTATION: clear to auscultation bilaterally Cardio: COMMON NORMALS: regular rate, regular rhythm, S1 normal heart sound present, S2 normal heart sound present, No gallops present (Cardio), No clicks present (Cardio), No murmurs present (Cardio) and Peripheral pulses 2+ throughout RATE: regular rate RHYTHM: regular rhythm HEART SOUNDS: S1 normal heart sound present and S2 normal heart sound present PERIPHERAL PULSES: Peripheral pulses 2+ throughout GI: COMMON NORMALS: Normal to inspection, nondistended, normoactive bowel soun ds present, Soft to palpation, non-tender and no masses PALPATION: Yes Soft to palpation : COMMON NORMALS: Yes no CVA tenderness BLADDER/KIDNEY EXAM: Yes no CVA tenderness Back/Pelvis: COMMON NORMALS: no CVA tenderness LUMBAR SPINE/LOWER BACK: Yes pain with ROM, No lumbar spinal tenderness and Yes paraspinal muscle tenderness Lumbar paraspinal muscle tenderness: right Right lumbar paraspinal muscle tenderness: L3, L4 and L5 Extremity: COMMON NORMALS: normal to inspection Neuro: COMMON NORMALS: patient oriented x3 SENSORIUM/ORIENTATION: Yes alert GAIT: Yes Normal gait present Skin: GENERAL SKIN EXAM: dry skin Course Vital Signs: Vital signs: Vital Signs Temperature 97.9 F 10/03/22 14:08 Pulse Rate 91 10/03/22 14:08 Respiratory Rate 18 10/03/22 14:08 Blood Pressure 135/85 10/03/22 14:08 Pulse Oximetry 97 10/03/22 14:08 Oxygen Delivery Me thod Room Air 10/03/22 14:08 MDM - Back Pain/Injury Medical Decision Making Patient is a 51-year-old female comes to the ED with back pain. Patient rates pain currently a 10 out of 10 and its located in the right side of her lower back. She injured her back earlier today while at work it all days. She states she was lifting a case of villegas and twisted to put a case into trunk of vehicle and felt the pain in the right side of her lower back. Patient does endorse dean e pain radiating down right leg. Denies any cauda equina symptoms. Vitals are stable. Patient appears nontoxic in no acute distress. She does have some right lumbar paraspinal muscle tenderness but no lumbar spinal tenderness. Rest of exam is benign. Patient was given dose of Toradol, muscle relaxer and Decadron here in the ED. She was stable for discharge home and diagnosed with lower back strain. Sent home with a prescription for an NSAID, muscle relaxer. Return to ED precautions given. Patient understood and agreed with plan. Discharge Plan Discharge Patient Disposition: Home Clinical Impression: Low back strain Qualifiers: Encounter type: initial encounter Qualified Code(s): S39.012A - Strain of muscle, fascia and tendon of lower back, initial encounter Condition: Stable Prescriptions: New Celebrex 100 mg capsule 100 mg PO BID PRN (Reason: pain) Qty: 30 0RF methocarbamol 750 mg tablet 750 mg PO Q8H PRN (Reason: muscle spasms and pain) Qty: 20 0RF No Action (DME) blood-glucose meter [Blood Glucose Monitoring] Kit See Rx Instructions .ROUTE .MEDSUPPLY Qty: 1 0RF Rx Instructions: check blood sugar daily as directed (DME) Blood Glucose Test Strip See Rx Instructions .ROUTE .MEDSUPPLY Qty: 100 3RF Rx Instructions: check blood sugar (DME) lancets [BD Ultra Fine Lancets] 33 gauge misc See Rx Instructions .ROUTE .MEDSUPPLY Qty: 100 3RF Rx Instructions: check blood sugar daily as directed Spiriva with HandiHaler 18 mcg capsule, w/inhalation device 1 cap INHALATION DAILY@07 Qty: 90 2RF Rx Instructions: puncture 1 cap using device; one dose = 2 inhalations rosuvastatin 20 mg tablet 20 mg PO DAILY polyethylene glycol 3350 [Miralax] 17 gram/dose powder 17 g PO DAILY PRN (Reason: Acid Reflux) nitroglycerin [Nitrostat] 0.4 mg tablet, sublingual 0.4 mg SUBLINGUAL Q5M PRN (Reason: Chest Pain) Qty: 25 3RF fluticasone propion-salmeterol [Advair Diskus] 500-50 mcg/dose blister with device 1 inh inhalation BID Qty: 60 3RF fluoxetine 20 mg/5 mL (4 mg/mL) solution 60 mg PO DAILY@07 Qty: 450 3RF fluticasone propionate 50 mcg/actuation spray,suspension 2 spray intranasal DAILY 360 Days Qty: 16 11RF Rx Instructions: administer into each nostril hydrocortisone [Cortisone (hydrocortisone)] 1 % cream 1 applic topical TID PRN (Reason: skin irritation) Qty: 28.4 0RF azelastine 137 mcg (0.1 %) aerosol,spray 1 spray intranasal BID 30 Days Qty: 30 6RF Rx Instructions: administer into each nostril fluticasone propionate [Flonase Allergy Relief] 50 mcg/actuation spray,suspension 2 spray intranasal DAILY 30 Days Qty: 15.8 6RF Rx Instructions: administer into each nostril Mounjaro 2.5 mg/0.5 mL pen injector 2.5 mg SUBCUT Q7D 30 Days Qty: 2 0RF Rx Instructions: 2mg weekly for 1 month Mounjaro 5 mg/0.5 mL pen injector 5 mg SUBCUT .weekly 30 Days Qty: 2 0RF Rx Instructions: 5 mg weekly for 1 month Mounjaro 7.5 mg/0.5 mL pen injector 7.5 mg SUBCUT Q7D 30 Days Qty: 2 1RF Rx Instructions: 7.5 mg weekly for 1 month and continue prednisone 5 mg/5 mL solution 20 mg PO DAILY 5 Days Qty: 120 0RF (DME) pen needle, diabetic 32 gauge x 5/32 needle See Rx Instructions .Route Qty: 100 3RF Rx Instructions: As directed pantoprazole [Protonix] 40 mg tablet,delayed release (DR/EC) 40 mg PO BID Qty: 28 0RF metformin 500 mg tablet See Rx Instructions .ROUTE .COMPLEX Qty: 60 0RF Dose Instruction: Take 2 tablets by mouth twice daily Rx Instructions: Take 2 tablets by mouth twice daily oxybutynin chloride 10 mg tablet extended release 24hr See Rx Instructions .ROUTE .COMPLEX Qty: 14 0RF Dose Instruction: TAKE 1 TABLET BY MOUTH ONCE DAILY . APPOINTMENT REQUIRED FOR FUTURE REFILLS Rx Instructions: TAKE 1 TABLET BY MOUTH ONCE DAILY . APPOINTMENT REQUIRED FOR FUTURE REFILLS (DME) OneTouch Ultra Test Strip See Rx Instructions .ROUTE .COMPLEX Qty: 50 0RF Dose Instruction: USE 1 STRIP TO CHECK GLUCOSE ONCE DAILY DIRECTED . APPOINTMENT REQUIRED FOR FUTURE REFILLS Rx Instructions: USE 1 STRIP TO CHECK GLUCOSE ONCE DAILY DIRECTED . APPOINTMENT REQUIRED FOR FUTURE REFILLS aspirin 81 mg Tablet,Delayed Release (Dr/Ec) 81 mg PO DAILY omeprazole 20 mg capsule,delayed release(DR/EC) 20 mg PO DAILY Qty: 90 0RF Hold Instructions: Resume on 10/31/21. ondansetron 4 mg tablet,disintegrating 4 mg PO Q8H PRN (Reason: nausea and vomiting) Qty: 10 0RF promethazine-DM 6.25-15 mg/5 mL syrup 5 ml PO Q6H PRN (Reason: cough) Qty: 118 0RF albuterol sulfate 2.5 mg /3 mL (0.083 %) solution for nebulization 2.5 mg inhalation QID PRN (Reason: shortness of breath or wheezing) Qty: 180 2RF albuterol sulfate 90 mcg/actuation HFA aerosol inhaler 2 puff inhalation Q6H PRN (Reason: shortness of breath or wheezing) Qty: 16 0RF Medrol (Rahul) 4 mg tablets,dose pack See Rx Instructions .ROUTE .COMPLEX Qty: 21 0RF Rx Instructions: orally per package directions doxycycline hyclate 100 mg tablet 100 mg PO BID 14 Days Qty: 28 0RF Discharge Orders: Discharge ED (Routine); Ordered 10/03/22 Ordered By: Sidney Venegas Referrals: Suzette Bowman FNP [Primary Care Provider] - Discharge Diet: Regular Discharge Activity: Limit activity as instructed Patient Instructions: Low Back Strain (ED) Activity Restrictions/Additional Instructions: Follow-up with medical provider as directed. Take medications as prescribed. Return to the ER or your medical provider if condition worsens. Please read and understand discharge instructions. Thank you for choosing [facility] for your healthcare needs today. Please realize this is an emergency room and that we are providing you with a medical screening exam and this may not be complete and all inclusive of all the testing and or work up that you may need to determine your ailment or severity of your illness. It is very important that you follow up as instructed or that you return to the Emergency Department should you have concerns or if your condition changes or worsens in any way. Coding Level of Care Code ED Manager Therapy for Toni Ramírez
[2022-10-03] MEDS: orphenadrine 30 mg/mL Inj 2 mL 60 MG IM (15:09)
[2022-10-03] MEDS: ketorolac 60 mg/2 mL INJ IM (15:13)
[2022-10-03] MEDS: dexamethasone 10 mg/mL INJ IM (15:16)
== END 2022-10-03 15:27 | disposition home or self-care (01) ==
PROVIDERS: Emergency Provider Physician Assistant; PCP Nurse Practitioner Family
DX: S39.012A Strain of muscle, fascia and tendon of lower back, initial encounter (principal); Z79.82 Long term (current) use of aspirin; Z79.84 Long term (current) use of oral hypoglycemic drugs; Z77.22 Contact with and (suspected) exposure to environmental tobacco smoke (acute) (chronic); J44.9 Chronic obstructive pulmonary disease, unspecified; Z86.73 Personal history of transient ischemic attack (TIA), and cerebral infarction without residual deficits; E11.9 Type 2 diabetes mellitus without complications; X50.0XXA Overexertion from strenuous movement or load, initial encounter; Y99.0 Civilian activity done for income or pay
CPT/HCPCS: 96372; 99284; J1100; J1885; J2360

== ENCOUNTER → 2022-10-07 14:02 | Outpatient (BNVA) | payer MEDICAID, SELFPAY ==
[2022-08-06 15:09] VITALS: BP 146/91; BMI 35.5
== END ==
PROVIDERS: PCP Nurse Practitioner Family; Visit Provider Internal Medicine Pulmonary Disease
DX: J45.909 Unspecified asthma, uncomplicated (principal); G47.33 Obstructive sleep apnea (adult) (pediatric); J98.4 Other disorders of lung; J31.0 Chronic rhinitis; J32.9 Chronic sinusitis, unspecified; J82.83 Eosinophilic asthma; E66.9 Obesity, unspecified; Z68.35 Body mass index [BMI] 35.0-35.9, adult; R94.2 Abnormal results of pulmonary function studies
CPT/HCPCS: 99214

== ENCOUNTER → 2022-10-19 10:18 | Outpatient (BNVA) | payer MEDICAID, SELFPAY ==
[2022-08-06 15:09] VITALS: BP 146/91; BMI 35.5
== END ==
PROVIDERS: PCP Nurse Practitioner Family; Visit Provider Otolaryngology
DX: H69.81 Other specified disorders of Eustachian tube, right ear (principal)
CPT/HCPCS: 99212; 99213

== ENCOUNTER 2022-10-29 06:00 | Outpatient (RCR) | payer MEDICAID, SELFPAY ==
[2022-08-06 15:09] VITALS: BP 146/91; BMI 35.5
== END 2022-11-10 23:59 | disposition home or self-care (01) ==
LOC: TPT 06:00
PROVIDERS: PCP Nurse Practitioner Family; Visit Provider Nurse Practitioner Family
DX: M54.9 Dorsalgia, unspecified (principal); G89.29 Other chronic pain
CPT/HCPCS: 97110

== ENCOUNTER 2022-11-25 08:26 | Outpatient (CLI) | payer MEDICAID, SELFPAY ==
[2022-08-06 15:09] VITALS: BP 146/91; BMI 35.5
--- NOTE | 2022-11-25 08:00 | US_ITS ---
WS: [id number] US pelv w/transvag [id number] HISTORY: N93.9 - Abnormal uterine and vaginal bleeding, unspecified COMPARISON: CT 07/21/2021, ultrasound 07/06/2012 Status post complete hysterectomy. As per history uterus and ovaries have been surgically removed. No midline mass. Uterus is not evident. There is a cystic mass to the LEFT of midline measuring 3.2 x 2.6 x 4.7 cm. This is a simple cyst with no septation or solid component. This cyst has increased in size since the most recent exam from 07/21/[address] Maximum diameter at that time was 3.0 cm. No free fluid. US/US pelv w/transvag [id number] IMPRESSION: 1. As per history patient is status post hysterectomy including oophorectomy. 2. Cystic mass in the LEFT adnexa has slightly increased in size since 07/21/19 22. Cyst measures 3.2 x 2.6 x 4.7 cm. Differential includes ovarian cyst within remnant ovary or a peritoneal inclusion cyst. No solid component. O-RADS 2, al most certainly benign.
== END 2022-11-25 08:27 | disposition home or self-care (01) ==
LOC: RAD 08:27
PROVIDERS: PCP Nurse Practitioner Family; Visit Provider Obstetrics & Gynecology
DX: N93.9 Abnormal uterine and vaginal bleeding, unspecified (principal); N83.292 Other ovarian cyst, left side
CPT/HCPCS: 76830; 76856

== ENCOUNTER 2022-12-27 12:39 | Emergency (ER) | payer MEDICAID, SELFPAY ==
[2022-12-18 08:35] VITALS: BP 146/91; BMI 35.5
[2022-12-27 12:53] VITALS: BP 136/85; PULSE 101; RESP 14; TEMP 36.4; O2SAT 95; BMI 34.9
[2022-12-27 14:09] LABS: Basophils # 0.1 10^3/uL (0.0-0.1); Basophils % 0.9 %; Eosinophils # 0.2 10^3/uL (0.0-0.8); Eosinophils % 2.6 %; Hematocrit 46.3 % (37.0-47.0); Hemoglobin 14.4 g/dL (11.5-15.3); Lymphocytes # 2.5 10^3/uL (0.8-4.8); Lymphocytes % 27.4 %; Mean Corpuscular HGB Conc 31.1 g/dL (30.0-36.0); Mean Corpuscular Volume 93.2 fl (81-99); Mean Platelet Volume 10.3 fL (7.4-10.4); Monocytes # 0.9 10^3/uL (0.2-0.9); Monocytes % 9.2 %; Neutrophils # 5.52 10^3/uL (1.8-7.7); Neutrophils % 59.6 %; Nucleated Red Blood Cells % 0 %; Platelet Count 237 10^3/cmm (130-400); Red Blood Count 4.97 10^6/uL (4.1-5.3); Red Cell Distribution Width 13.3 % (12.1-15.1); White Blood Count 9.3 10^3/uL (4.0-10.0)
[2022-12-27 14:32] LABS: Alanine Aminotransferase 21 U/L (0-33); Albumin Level 3.6 g/dL (3.5-5.2); Alkaline Phosphatase 103 U/L (35-105); Anion Gap 18.4 (5-19); Aspartate Amino Transferase 21 U/L (0-32); Blood Urea Nitrogen 9 mg/dL (6-20); Calcium 9.1 mg/dL (8.5-10.5); Carbon Dioxide 20 mmol/L (22-29); Chloride 105 mmol/L (98-107); Globulin 3.6 g/dL (1.3-4.6); Glomerular Filtration Rate 105.4 mL/min (90-130); Glucose 119 mg/dL (65-115); Lipase 23 U/L (13-60); Osmolality Calculated 290 mOsm/kg (285-295); Potassium 3.4 mmol/L (3.5-5.1); Sodium 140 mmol/L (136-145); Total Bilirubin 0.3 mg/dL (0.15-1.2); Total Protein 7.2 g/dL (6.6-8.7)
--- NOTE | 2022-12-27 14:57 | W.ED.ABDPA2 ---
HPI - Abdominal Pain General: Chief Complaint: Abdominal Pain Stated Complaint: lower abd pain, n/v/d Time Seen by Provider: 12/27/22 14:45 History of Present Illness: Ms. Veloz is a 52-year-old lady with a somewhat complex history including COPD, YAIR, prior stroke, diabetes, history of cholecystectomy, history of hysterectomy presented to the emergency department for abdominal pain. She notes acute onset symptoms 5 or 6 hours ago without known specific provoking event. She has had multiple episodes of nonbilious nonbloody emesis as well as multiple episodes of diarrhea. She notes right groin and lower quadrant pain associated with radiation of the back. Sharp and stabbing in nature. Moderate to severe in intensity. Worse with palpation and movement. She did have pain with bumps in the road while driving here. No other specific changes in health, exacerbating, or alleviating factors identified. Onset (ago): hour(s) Pain Consistency: constant Location: RLQ and Pelvis Severity: moderate Quality: stabbing Associated Symptoms: Reports diarrhea, nausea and vomiting Review of Systems General: Reports: 10 or more systems reviewed and unremarkable except in HPI and below GI: Reports: nausea, vomiting and diarrhea PFSH ED PFSH: Medical History COPD (chronic obstructive pulmonary disease) CVA (cerebral vascular accident) Depression Diabetes mellitus, controlled GERD (gastroesophageal reflux disease) Major depressive disorder, recurrent, moderate YAIR (obstructive sleep apnea) Psychiatric care Surgical History H/O laparoscopy H/O: hysterectomy History of cholecystectomy History of colonoscopy History of tubal ligation Hx of oophorectomy Family History Father CAD (coronary artery disease) Cancer Diabetes Hyperlipidemia Mother Hypertension Psychiatric illness Brother Hypertension Social History Smoking and tobacco status: never smoked Second hand smoke exposure: Yes Alcohol intake: current Alcohol intake frequency: holidays/special occasions only Alcohol type: other Substance/Drug Use: never Adopted: No Caregiver/support person: No Lives independently: Yes Household members: significant other and children Housing: Apartment Marital status: Marital status details: currently lives with ex husbanc Number of children: 3 Number of grandchildren: 7 Highest education level completed: High School Graduate service: No Current occupational status: employed Current occupation: [employer] Current occupational exposures/hazards: No Pets and animals: Yes (4 tiny dogs) Pets & animals: dog(s) Leisure activites: art Sexually active: No Do you think of yourself as: Straight/Heterosexual Current gender identity: Female Merced/Rastafari: Restorationist Special merced needs: No Agree to transfusion: No (Jehova's Witness) Financial difficulty paying for basics: Hard Female Reproductive History: Para: 3 Spontaneous abortions: Yes (X 3) Physical Exam Const: COMMON NORMALS: alert GENERAL APPEARANCE: cooperative and well developed HENMT: COMMON NORMALS: normocephalic and atraumatic HEAD & SCALP: normocephalic and atraumatic Eye: COMMON NORMALS: conjunctivae normal CONJUNCTIVA: Yes conjunctivae normal SCLERA: sclerae normal Neck/C-Spine: COMMON NORMALS: supple GENERAL: Yes trachea midline Resp: COMMON NORMALS: clear to auscultation bilaterally EFFORT & INSPECTION: Yes able to speak in complete sentences AUSCULTATION: clear to auscultation bilaterally Cardio: COMMON NORMALS: regular rhythm RATE: tachycardic RHYTHM: regular rhythm GI: COMMON NORMALS: Soft to palpation PALPATION: Yes Soft to palpation, Yes Tenderness to palpation present (GI), No Guarding due to palpation present (GI) and No Rigid due to palpation : COMMON NORMALS: Yes no CVA tenderness BLADDER/KIDNEY EXAM: Yes no CVA tenderness Back/Pelvis: COMMON NORMALS: no CVA tenderness Extremity: GENERAL: Yes normal exam except as noted and No edema Neuro: COMMON NORMALS: moves all extremities SENSORIUM/ORIENTATION: Yes alert and No Orientation impaired Psych: COMMON NORMALS: mental status grossly normal and Normal thought process present THOUGHT PROCESS: Normal thought process present Course Vital Signs: Vital signs: Vital Signs Temperature 97.6 F 12/27/22 20:11 Pulse Rate 91 12/27/22 20:11 Respiratory Rate 16 12/27/22 20:11 Blood Pressure 126/95 12/27/22 20:11 Pulse Oximetry 96 12/27/22 20:11 Oxygen Delivery Me thod Room Air 12/27/22 18:04 MDM - Abdominal Pain Medical Decision Making 52-year-old lady presenting with abdominal symptoms. Exam as above, somewhat ill however nontoxic. Abdominal tenderness without evidence of acute surgical abdomen. Labs with essentially unremarkable hematologic panel. Metabolic panel with mild hypokalemia and dehydration likely. No transaminitis, normal lipase. Urinalysis without concern for urinary tract infection. Given degree of tenderness and continuation on initial reassessment I believe that imaging is appropriate. Possible localized ileus present, enlarging left adnexal cyst and hepatomegaly with mild fatty liver. Incidental findings discussed with patient including need for outpatient imaging. Patient improved on reassessment with fluids, analgesia, antiemetic, antispasmodic. She was also given potassium supplementation. Given improvement she is able to tolerate p.o. intake and satisfactory for outpatient management. The results of ED evaluation were discussed with the patient including prescriptions and/or symptomatic cares (if applicable) including appropriate and responsible use, followup plan, and return precautions. The patient verbalized understanding and felt safe for discharge. Medical Records I reviewed the patient's medical records. Lab Data I reviewed the patient's lab results. 12/27/22 13:55 12/27/22 13:55 Labs/Radiology: Radiology Impressions Abdomen/Pelvis CT 12/27/22 15:49 IMPRESSION: 1. Question of possible localized ileus. Correlate clinically. 2. Enlarging left adnexal cyst. Consider further evaluation with non urgent pelvic ultrasound. 3. Hepatomegaly and mild fatty liver Laboratory Results WBC 9.3 10^3/uL (4.0-10.0) 12/27/22 13:55 RBC 4.97 10^6/uL (4.1-5.3) 12/27/22 13:55 Hgb 14.4 g/dL (11.5-15.3) 12/27/22 13:55 Hct 46.3 % (37.0-47.0) 12/27/22 13:55 MCV 93.2 fl (81-99) 12/27/22 13:55 MCH 29.0 pg (28.0-34.0) 12/27/22 13:55 MCHC 31.1 g/dL (30.0-36.0) 12/27/22 13:55 RDW 13.3 % (12.1-15.1) 12/27/22 13:55 Plt Count 237 10^3/cmm (130-400) 12/27/22 13:55 MPV 10.3 fL (7.4-10.4) 12/27/22 13:55 Neut % (Auto) 59.6 % 12/27/22 13:55 Lymph % (Auto) 27.4 % 12/27/22 13:55 [place] % (Auto) 9.2 % 12/27/22 13:55 Eos % (Auto) 2.6 % 12/27/22 13:55 Baso % (Auto) 0.9 % 12/27/22 13:55 Neut # (Auto) 5.52 10^3/uL (1.8-7.7) 12/27/22 13:55 Lymph # (Auto) 2.5 10^3/uL (0.8-4.8) 12/27/22 13:55 [place] # (Auto) 0.9 10^3/uL (0.2-0.9) 12/27/22 13:55 Eos # (Auto) 0.2 10^3/uL (0.0-0.8) 12/27/22 13:55 Baso # (Auto) 0.1 10^3/uL (0.0-0.1) 12/27/22 13:55 Nucleated RBC % (auto) 0 % 12/27/22 13:55 Nucleated RBCs # 0.0 /100WBC 12/27/22 13:55 Sodium 140 mmol/L (136-145) 12/27/22 13:55 Potassium 3.4 mmol/L (3.5-5.1) L 12/27/22 13:55 Chloride 105 mmol/L (98-107) 12/27/22 13:55 Carbon Dioxide 20 mmol/L (22-29) L 12/27/22 13:55 Anion Gap 18.4 (5-19) 12/27/22 13:55 BUN 9 mg/dL (6-20) 12/27/22 13:55 Creatinine 0.6 mg/dL (0.5-0.9) 12/27/22 13:55 GFR Calculation 105.4 mL/min (90-130) 12/27/22 13:55 Glucose 119 mg/dL (65-115) H 12/27/22 13:55 Calculated Osmolality 290 mOsm/kg (285-295) 12/27/22 13:55 Lactic Acid 1.3 mmol/L (0.5-2.2) 12/27/22 15:14 Calcium 9.1 mg/dL (8.5-10.5) 12/27/22 13:55 Total Bilirubin 0.3 mg/dL (0.15-1.2) 12/27/22 13:55 AST 21 U/L (0-32) 12/27/22 13:55 ALT 21 U/L (0-33) 12/27/22 13:55 Alkaline Phosphatase 103 U/L (35-105) 12/27/22 13:55 Total Protein 7.2 g/dL (6.6-8.7) 12/27/22 13:55 Albumin 3.6 g/dL (3.5-5.2) 12/27/22 13:55 Globulin 3.6 g/dL (1.3-4.6) 12/27/22 13:55 Lipase 23 U/L (13-60) 12/27/22 13:55 Urine Color Straw (Yellow) 12/27/22 17:15 Urine Appearance Clear (CLEAR) 12/27/22 17:15 Urine pH 5 (5-7) 12/27/22 17:15 Ur Specific [place] 1.015 (1.005-1.030) 12/27/22 17:15 Urine Protein Neg (Negative) 12/27/22 17:15 Urine Glucose (UA) Norm (Normal) 12/27/22 17:15 Urine Ketones Negative (Negative) 12/27/22 17:15 Urine Blood Neg (Negative) 12/27/22 17:15 Urine Nitrate Negative (Negative) 12/27/22 17:15 Urine Bilirubin Neg (Negative) 12/27/22 17:15 Urine Urobilinogen 1 mg/dL (Negative) H 12/27/22 17:15 Ur Leukocyte Esterase Negative (Negative) 12/27/22 17:15 Discharge Plan Discharge Patient Disposition: Home Clinical Impression: Abdominal pain, Nausea, vomiting, and diarrhea, Adnexal cyst Condition: Stable Prescriptions: New dicyclomine 10 mg capsule 10 mg PO BID PRN (Reason: abdominal pain) Qty: 20 0RF ondansetron 4 mg tablet,disintegrating 4 mg PO Q8H PRN (Reason: nausea and vomiting) Qty: 15 0RF No Action (DME) blood-glucose meter [Blood Glucose Monitoring] Kit See Rx Instructions .ROUTE .MEDSUPPLY Qty: 1 0RF Rx Instructions: check blood sugar daily as directed (DME) Blood Glucose Test Strip See Rx Instructions .ROUTE .MEDSUPPLY Qty: 100 3RF Rx Instructions: check blood sugar (DME) lancets [BD Ultra Fine Lancets] 33 gauge misc See Rx Instructions .ROUTE .MEDSUPPLY Qty: 100 3RF Rx Instructions: check blood sugar daily as directed Spiriva with HandiHaler 18 mcg capsule, w/inhalation device 1 cap INHALATION DAILY@07 Qty: 90 2RF Rx Instructions: puncture 1 cap using device; one dose = 2 inhalations rosuvastatin 20 mg tablet 20 mg PO DAILY polyethylene glycol 3350 [Miralax] 17 gram/dose powder 17 g PO DAILY PRN (Reason: Constipation) nitroglycerin [Nitrostat] 0.4 mg tablet, sublingual 0.4 mg SUBLINGUAL Q5M PRN (Reason: Chest Pain) Qty: 25 3RF fluticasone propion-salmeterol [Advair Diskus] 500-50 mcg/dose blister with device 1 inh inhalation BID Qty: 60 3RF fluoxetine 20 mg/5 mL (4 mg/mL) solution 60 mg PO DAILY@07 Qty: 450 3RF fluticasone propionate 50 mcg/actuation spray,suspension 2 spray intranasal DAILY 360 Days Qty: 16 11RF Rx Instructions: administer into each nostril azelastine 137 mcg (0.1 %) aerosol,spray 1 spray intranasal BID PRN (Reason: Allergy Symptoms) Rx Instructions: administer into each nostril mupirocin 2 % ointment 1 applic topical TID 7 Days Qty: 22 1RF (DME) pen needle, diabetic 32 gauge x /32 needle See Rx Instructions .Route Qty: 100 3RF Rx Instructions: As directed (DME) OneTouch Ultra Test Strip See Rx Instructions .ROUTE .COMPLEX Qty: 50 0RF Dose Instruction: USE 1 STRIP TO CHECK GLUCOSE ONCE DAILY DIRECTED . APPOINTMENT REQUIRED FOR FUTURE REFILLS Rx Instructions: USE 1 STRIP TO CHECK GLUCOSE ONCE DAILY DIRECTED . APPOINTMENT REQUIRED FOR FUTURE REFILLS Victoza 3-Rahul 0.6 mg/0.1 mL (18 mg/3 mL) pen injector See Rx Instructions SUBCUT DAILY 90 Days Qty: 27 3RF Rx Instructions: subcutaneously daily; 0.6mg daily for 1 week, 1.2 daily for 1 week and then 1.8mg daily aspirin 81 mg Tablet,Delayed Release (Dr/Ec) 81 mg PO DAILY omeprazole 20 mg capsule,delayed release(DR/EC) 20 mg PO DAILY Qty: 90 0RF Hold Instructions: Resume on 10/31/21. ondansetron 4 mg tablet,disintegrating 4 mg PO Q8H PRN (Reason: nausea and vomiting) Qty: 10 0RF albuterol sulfate 2.5 mg /3 mL (0.083 %) solution for nebulization 2.5 mg inhalation QID PRN (Reason: shortness of breath or wheezing) Qty: 180 2RF albuterol sulfate 90 mcg/actuation HFA aerosol inhaler 2 puff inhalation Q6H PRN (Reason: shortness of breath or wheezing) Qty: 16 0RF celecoxib [Celebrex] 100 mg capsule 100 mg PO BID PRN (Reason: pain) Qty: 30 0RF methocarbamol 750 mg tablet 750 mg PO Q8H PRN (Reason: muscle spasms and pain) Qty: 20 0RF metformin 500 mg tablet 1,000 mg PO BID oxybutynin chloride 10 mg tablet extended release 24hr 10 mg PO DAILY clindamycin HCl 150 mg capsule 450 mg PO Q8H 7 Days Qty: 63 0RF hydrocodone-acetaminophen 5-325 mg tablet 1 tab PO QID PRN (Reason: pain) Qty: 10 0RF Discharge Orders: Discharge ED (Routine); Ordered 12/27/22 Ordered By: Jarett Zamora Referrals: Suzette Bowman FNP [Primary Care Provider] - Discharge Diet: Clear Liquid Discharge Activity: Increase activity as tolerated Patient Instructions: Abdominal Pain (ED), Ileus (ED), Opioid Safety Activity Restrictions/Additional Instructions: Thank you for visiting the emergency department. You were seen and evaluated for abdominal pain with nausea vomiting and diarrhea. The exact cause of your symptoms is unclear however does not appear to need hospitalization at this time. He did did show possible localized ileus which is related to disruption of the normal peristalsis of the bowel. Treatment for this is supportive. Recommend clear liquid diet. I will prescribe additional doses of antinausea medication and antispasmodic. You may use [id number] medications such as acetaminophen and ibuprofen for pain however please do not exceed the daily recommended dosage as listed on the packaging and please keep in mind that many namebrand medications contain the same active ingredients. Please avoid these medications if previously instructed to do so by another physician due to other underlying medical condition. CT also incidentally revealed a left adnexal cyst. I recommend follow-up with your primary care provider for ordering outpatient pelvic ultrasound. Return for uncontrolled symptoms or anything else that you are concerned about and feel needs emergency department evaluation. Coding Level of Care Code ED [employer] Tr[employer] for Toni Ramírez
[2022-12-27 15:17] VITALS: BP 141/93; PULSE 89; RESP 16; O2SAT 96
[2022-12-27] MEDS: sodium chloride 0.9% 1,000 ML 999 ML IV (15:22)
[2022-12-27] MEDS: morphine 4 mg/mL SDV 1 mL IVP ×2 (15:22→17:27)
[2022-12-27] MEDS: ondansetron 2 mg/ML SDV 2 mL 4 MG IVP (15:22)
--- NOTE | 2022-12-27 15:49 | CTR_ITS ---
PROCEDURE INFORMATION: Exam: CT Abdomen And Pelvis With Contrast Exam date and time: 12/27/2022 4:45 PM Age: 52 years old Clinical indication: Abdominal pain; Localized; Right lower quadrant (rlq); Additional info: Rlq pain TECHNIQUE: Imaging protocol: Computed tomography of the abdomen and pelvis with contrast. Radiation optimization: All CT scans at this facility use at least one of these dose optimization techniques: automated exposure control; mA and/or kV adjustment per patient size (includes targeted exams where dose is matched to clinical indication); or iterative reconstruction. Contrast material: OMNI 350; Contrast volume: 100 ml; Contrast route: INTRAVENOUS (IV); REPORTING DATA: Count of CT and Cardiac NM exams in prior 12 months: This patient has received [address] and 0 known cardiac nuclear medicine studies in the 12 months prior to the current study. COMPARISON: CT abdomen pelvis w con* [id number] 07/21/2021 11:50 AM RADIATION DOSE METRICS: Total DLP (mGy-cm): 897.03 FINDINGS: Liver: There is a diffuse decrease in hepatic parenchymal density, consistent with mild fatty infiltration. There is no focal abnormality within the liver. There is mild enlargement of the liver. Liver is 22 cm in height. Gallbladder and bile ducts: There has been a cholecystectomy. Pancreas: The pancreas is normal. Spleen: The spleen is normal. Adrenal glands: The adrenal glands are normal. Kidneys and ureters: The kidneys are normal. There is no evidence of hydronephrosis. There is no evidence of renal or ureteral calcifications. Stomach and bowel: There is no evidence of colitis/diverticulitis. There is no evidence of intestinal obstruction. There is some mild fluid distention of a few proximal small bowel loops. The remainder of the bowel is nondilated. This could potentially represent some early obstruction or localized ileus , or more likely the result of a ingested fluid bolus. Please correlate clinically. Appendix: A normal appendix is identified. Intraperitoneal space: There is no evidence of free intraperitoneal fluid. There is no evidence of free intraperitoneal fluid. Vasculature: The aorta demonstrates mild atherosclerotic calcification. Lymph nodes: There is no evidence of lymphadenopathy. Urinary bladder: Unremarkable as visualized. Reproductive: There is a 3.4 x 4.9 x 3.0 cm sized left adnexal cyst larger than on 07/21/2021 when this measured 2.0 x 3.0 x 2.4 cm. There has been a hysterectomy. Bones/joints: Unremarkable. No acute fracture. Soft tissues: Unremarkable. CT/CT abdomen pelvis w con* [id number] IMPRESSION: 1. Question of possible localized ileus. Correlate clinically. 2. Enlarging left adnexal cyst. Consider further evaluation with non urgent pelvic ultrasound. 3. Hepatomegaly and mild fatty liver
[2022-12-27 15:54] LABS: Lactic Sepsis W/Reflex 1.3 mmol/L (0.5-2.2)
[2022-12-27] MEDS: iohexol 350 mg/mL 500 mL Btl (per mL) IV (16:50)
[2022-12-27 17:20] LABS: Add Urine Microscopic? NO; Charge for UA Resulting for Rev
[2022-12-27 17:23] LABS: Bilirubin Urine Neg (Negative); Blood Urine Neg (Negative); Glucose Urine UA Norm (Normal); Ketones Urine Negative (Negative); Leukocyte Esterase Urine Negative (Negative); Nitrate Urine Negative (Negative); Protein Urine Neg (Negative); Specific Gravity, Urine 1.015 (1.005-1.030); Urine Appearance Clear (CLEAR); Urine Color Straw (Yellow); Urobilinogen Urine 1 mg/dL (Negative); pH Urine 5 (5-7)
[2022-12-27 18:04] VITALS: BP 126/95; PULSE 91; RESP 16; O2SAT 96
[2022-12-27] MEDS: potassium chloride oral liq 20 mEq/15 mL UDC 40 MEQ PO (18:15)
[2022-12-27] MEDS: dicyclomine 10 mg Capsule PO (19:31)
[2022-12-27] MEDS: ketorolac 30 mg/mL INJ 15 MG IVP (19:31)
[2022-12-27 20:11] VITALS: BP 126/95; PULSE 91; RESP 16; TEMP 36.4; O2SAT 96
== END 2022-12-27 20:28 | disposition home or self-care (01) ==
PROVIDERS: Physician Assistant; Emergency Provider Emergency Medicine; PCP Nurse Practitioner Family
DX: N94.89 Other specified conditions associated with female genital organs and menstrual cycle (principal); R10.9 Unspecified abdominal pain; R11.2 Nausea with vomiting, unspecified; R19.7 Diarrhea, unspecified; J44.9 Chronic obstructive pulmonary disease, unspecified; Z86.73 Personal history of transient ischemic attack (TIA), and cerebral infarction without residual deficits; E11.9 Type 2 diabetes mellitus without complications; Z77.22 Contact with and (suspected) exposure to environmental tobacco smoke (acute) (chronic); Z79.82 Long term (current) use of aspirin; Z79.84 Long term (current) use of oral hypoglycemic drugs
CPT/HCPCS: 36415; 74177; 80053; 81003; 83605; 83690; 85025; 87040; 96361; 96374; 96375; 96376; 99285; J1885; J2270; J2405; J7030; Q9967

== ENCOUNTER → 2023-01-01 11:00 | Outpatient (BNVA) | payer MEDICAID, SELFPAY ==
[2022-12-18 08:35] VITALS: BP 146/91; BMI 35.5
== END ==
PROVIDERS: PCP Nurse Practitioner Family; Visit Provider Obstetrics & Gynecology
DX: N81.10 Cystocele, unspecified (principal); N39.46 Mixed incontinence
CPT/HCPCS: 87086

== ENCOUNTER 2023-01-03 20:29 | Emergency (ER) | payer MEDICAID, SELFPAY ==
[2022-12-18 08:35] VITALS: BP 146/91; BMI 35.5
--- NOTE | 2023-01-03 20:32 | W.ED.EXTPRO ---
HPI - Extremity Problem General: Chief complaint: Extremity Injury, Lower Stated complaint: Ankle Pain Time Seen by Provider: 01/03/23 20:32 History of Present Illness: Ms. Veloz is a 52-year-old lady with history of insulin-dependent diabetes presenting to the ER for concern of right lateral ankle wound. Reports that it was may be a bite or blister a few days ago and has subsequently started draining with scabbing. She notes warmth and a little bit of swelling. She denies other signs systemic illness. Apparently she was seen at urgent care and prescribed mupirocin. Sugars have not been significantly elevated above baseline. No other specific changes in health, exacerbating, or alleviating factors identified. Onset (ago): day(s) Review of Systems General: Reports: 10 or more systems reviewed and unremarkable except in HPI and below PFSH ED PFSH: Medical History COPD (chronic obstructive pulmonary disease) CVA (cerebral vascular accident) Depression Diabetes mellitus, controlled GERD (gastroesophageal reflux disease) Major depressive disorder, recurrent, moderate YAIR (obstructive sleep apnea) Psychiatric care Surgical History H/O laparoscopy H/O: hysterectomy History of cholecystectomy History of colonoscopy History of tubal ligation Hx of oophorectomy Family History Father CAD (coronary artery disease) Cancer Diabetes Hyperlipidemia Mother Hypertension Psychiatric illness Brother Hypertension Social History Smoking and tobacco status: never smoked Second hand smoke exposure: Yes Alcohol intake: current Alcohol intake frequency: holidays/special occasions only Alcohol type: other Substance/Drug Use: never Adopted: No Caregiver/support person: No Lives independently: Yes Household members: significant other and children Housing: Apartment Marital status: Marital status details: currently lives with ex husbanc Number of children: 3 Number of grandchildren: 7 Highest education level completed: High School Graduate service: No Current occupational status: employed Current occupation: [employer] Current occupational exposures/hazards: No Pets and animals: Yes (4 tiny dogs) Pets & animals: dog(s) Leisure activites: art Sexually active: No Do you think of yourself as: Straight/Heterosexual Current gender identity: Female Merced/Buddhism: Religion Special merced needs: No Agree to transfusion: No (Jehova's Witness) Financial difficulty paying for basics: Hard Female Reproductive History: Para: 3 Spontaneous abortions: Yes (X 3) Physical Exam Const: COMMON NORMALS: alert GENERAL APPEARANCE: cooperative and well developed HENMT: COMMON NORMALS: normocephalic and atraumatic HEAD & SCALP: normocephalic and atraumatic Eye: COMMON NORMALS: conjunctivae normal CONJUNCTIVA: Yes conjunctivae normal SCLERA: sclerae normal Neck/C-Spine: COMMON NORMALS: supple GENERAL: Yes trachea midline Resp: COMMON NORMALS: normal respiratory effort EFFORT & INSPECTION: Yes able to speak in complete sentences Cardio: COMMON NORMALS: regular rate and regular rhythm RATE: regular rate RHYTHM: regular rhythm GI: COMMON NORMALS: Soft to palpation PALPATION: Yes Soft to palpation and No Tenderness to palpation present (GI) Extremity: NARRATIVE EXTREMITY EXAM: Right lower extremity?approximately 2 cm in diameter scabbed lesion overlying the lateral malleolus. Tenderness to palpation. Mild isolated erythema without streaking. Pulses palpable. CMS intact GENERAL: Yes normal exam except as noted and No edema Neuro: COMMON NORMALS: moves all extremities SENSORIUM/ORIENTATION: Yes alert and No Orientation impaired Psych: COMMON NORMALS: mental status grossly normal and Normal thought process present THOUGHT PROCESS: Normal thought process present Course Vital Signs: Vital signs: Vital Signs Temperature 98.4 F 01/03/23 20:36 Pulse Rate 78 01/03/23 21:53 Respiratory Rate 18 01/03/23 21:53 Blood Pressure 127/100 01/03/23 21:53 Pulse Oximetry 98 01/03/23 21:53 Oxygen Delivery Me thod Room Air 01/03/23 20:47 MDM - Extremity (Nontraumatic) Medical Decision Making 52-year-old lady presenting with right lateral ankle skin lesion. Exam as above. Nontoxic. Minimal leukocytosis, no significant metabolic derangement [id number] ultrasound with no fluid collection identified Antiemetic and analgesia given. Already given. Plan for referral to podiatry. The results of ED evaluation were discussed with the patient including prescriptions and/or symptomatic cares (if applicable) including appropriate and responsible use, followup plan, and return precautions. The patient verbalized understanding and felt safe for discharge. Medical Records I reviewed the patient's medical records. Lab Data I reviewed the patient's lab results. 01/03/23 21:08 01/03/23 21:08 Radiology Impressions Ankle X-Ray 01/03/23 20:51 IMPRESSION: No acute bony injury. Nonspecific soft tissue swelling could reflect ligamentous injury. Inflammatory edema not excluded. No radiopaque foreign body or soft tissue gas. Laboratory Results WBC 10.2 10^3/uL (4.0-10.0) H 01/03/23 21:08 RBC 4.96 10^6/uL (4.1-5.3) 01/03/23 21:08 Hgb 14.1 g/dL (11.5-15.3) 01/03/23 21:08 Hct 43.6 % (37.0-47.0) 01/03/23 21:08 MCV 87.9 fl (81-99) 01/03/23 21:08 MCH 28.4 pg (28.0-34.0) 01/03/23 21:08 MCHC 32.3 g/dL (30.0-36.0) 01/03/23 21:08 RDW 13.2 % (12.1-15.1) 01/03/23 21:08 Plt Count 309 10^3/cmm (130-400) 01/03/23 21:08 MPV 10.1 fL (7.4-10.4) 01/03/23 21:08 Neut % (Auto) 60.9 % 01/03/23 21:08 Lymph % (Auto) 27.0 % 01/03/23 21:08 [place] % (Auto) 8.3 % 01/03/23 21:08 Eos % (Auto) 2.7 % 01/03/23 21:08 Baso % (Auto) 0.8 % 01/03/23 21:08 Neut # (Auto) 6.24 10^3/uL (1.8-7.7) 01/03/23 21:08 Lymph # (Auto) 2.8 10^3/uL (0.8-4.8) 01/03/23 21:08 [place] # (Auto) 0.9 10^3/uL (0.2-0.9) 01/03/23 21:08 Eos # (Auto) 0.3 10^3/uL (0.0-0.8) 01/03/23 21:08 Baso # (Auto) 0.1 10^3/uL (0.0-0.1) 01/03/23 21:08 Nucleated RBC % (auto) 0 % 01/03/23 21:08 Nucleated RBCs # 0.0 /100WBC 01/03/23 21:08 Sodium 139 mmol/L (136-145) 01/03/23 21:08 Potassium 3.6 mmol/L (3.5-5.1) 01/03/23 21:08 Chloride 102 mmol/L (98-107) 01/03/23 21:08 Carbon Dioxide 25 mmol/L (22-29) 01/03/23 21:08 Anion Gap 15.6 (5-19) 01/03/23 21:08 BUN 9 mg/dL (6-20) 01/03/23 21:08 Creatinine 0.7 mg/dL (0.5-0.9) 01/03/23 21:08 GFR Calculation 88.2 mL/min (90-130) L 01/03/23 21:08 Glucose 155 mg/dL (65-115) H 01/03/23 21:08 Calculated Osmolality 290 mOsm/kg (285-295) 01/03/23 21:08 Calcium 9.1 mg/dL (8.5-10.5) 01/03/23 21:08 Discharge Plan Discharge Patient Disposition: Home Clinical Impression: Diabetic ankle ulcer Condition: Stable Prescriptions: New hydrocodone-acetaminophen 5-325 mg tablet 1 tab PO QID PRN (Reason: pain) Qty: 10 0RF Discontinued clindamycin HCl 300 mg capsule 300 mg PO Q6H 7 Days Qty: 28 0RF No Action (DME) blood-glucose meter [Blood Glucose Monitoring] Kit See Rx Instructions .ROUTE .MEDSUPPLY Qty: 1 0RF Rx Instructions: check blood sugar daily as directed (DME) Blood Glucose Test Strip See Rx Instructions .ROUTE .MEDSUPPLY Qty: 100 3RF Rx Instructions: check blood sugar (DME) lancets [BD Ultra Fine Lancets] 33 gauge misc See Rx Instructions .ROUTE .MEDSUPPLY Qty: 100 3RF Rx Instructions: check blood sugar daily as directed Spiriva with HandiHaler 18 mcg capsule, w/inhalation device 1 cap INHALATION DAILY@07 Qty: 90 2RF Rx Instructions: puncture 1 cap using device; one dose = 2 inhalations rosuvastatin 20 mg tablet 20 mg PO DAILY polyethylene glycol 3350 [Miralax] 17 gram/dose powder 17 g PO DAILY PRN (Reason: Constipation) nitroglycerin [Nitrostat] 0.4 mg tablet, sublingual 0.4 mg SUBLINGUAL Q5M PRN (Reason: Chest Pain) Qty: 25 3RF fluticasone propion-salmeterol [Advair Diskus] 500-50 mcg/dose blister with device 1 inh inhalation BID Qty: 60 3RF fluoxetine 20 mg/5 mL (4 mg/mL) solution 60 mg PO DAILY@07 Qty: 450 3RF fluticasone propionate 50 mcg/actuation spray,suspension 2 spray intranasal DAILY 360 Days Qty: 16 11RF Rx Instructions: administer into each nostril azelastine 137 mcg (0.1 %) aerosol,spray 1 spray intranasal BID PRN (Reason: Allergy Symptoms) Rx Instructions: administer into each nostril mupirocin 2 % ointment 1 applic topical TID 7 Days Qty: 22 1RF (DME) pen needle, diabetic 32 gauge x 5/32 needle See Rx Instructions .Route Qty: 100 3RF Rx Instructions: As directed (DME) OneTouch Ultra Test Strip See Rx Instructions .ROUTE .COMPLEX Qty: 50 0RF Dose Instruction: USE 1 STRIP TO CHECK GLUCOSE ONCE DAILY DIRECTED . APPOINTMENT REQUIRED FOR FUTURE REFILLS Rx Instructions: USE 1 STRIP TO CHECK GLUCOSE ONCE DAILY DIRECTED . APPOINTMENT REQUIRED FOR FUTURE REFILLS Victoza 3-Rahul 0.6 mg/0.1 mL (18 mg/3 mL) pen injector See Rx Instructions SUBCUT DAILY 90 Days Qty: 27 3RF Rx Instructions: subcutaneously daily; 0.6mg daily for 1 week, 1.2 daily for 1 week and then 1.8mg daily aspirin 81 mg Tablet,Delayed Release (Dr/Ec) 81 mg PO DAILY omeprazole 20 mg capsule,delayed release(DR/EC) 20 mg PO DAILY Qty: 90 0RF Hold Instructions: Resume on 10/31/21. ondansetron 4 mg tablet,disintegrating 4 mg PO Q8H PRN (Reason: nausea and vomiting) Qty: 10 0RF albuterol sulfate 2.5 mg /3 mL (0.083 %) solution for nebulization 2.5 mg inhalation QID PRN (Reason: shortness of breath or wheezing) Qty: 180 2RF albuterol sulfate 90 mcg/actuation HFA aerosol inhaler 2 puff inhalation Q6H PRN (Reason: shortness of breath or wheezing) Qty: 16 0RF celecoxib [Celebrex] 100 mg capsule 100 mg PO BID PRN (Reason: pain) Qty: 30 0RF methocarbamol 750 mg tablet 750 mg PO Q8H PRN (Reason: muscle spasms and pain) Qty: 20 0RF metformin 500 mg tablet 1,000 mg PO BID oxybutynin chloride 10 mg tablet extended release 24hr 10 mg PO DAILY dicyclomine 10 mg capsule 10 mg PO BID PRN (Reason: abdominal pain) Qty: 20 0RF ondansetron 4 mg tablet,disintegrating 4 mg PO Q8H PRN (Reason: nausea and vomiting) Qty: 15 0RF Discharge Orders: Discharge ED (Routine); Ordered 01/03/23 Ordered By: Jarett Zamora Referrals: Suzette Bowman FNP [Primary Care Provider] - Discharge Diet: Usual diet Discharge Activity: Resume usual activity Patient Instructions: Opioid Safety, Wound Care (General) Activity Restrictions/Additional Instructions: Thank you for visiting the emergency department. You were seen and evaluated for ankle wound. Given laboratory and physical exam findings you do not require hospitalization at this time. You will be prescribed antibiotics, take these as prescribed. I will message case management for follow-up with podiatry. Additionally I will prescribe pain medication. Use this cautiously as it is an opioid. You may use [id number] medications such as acetaminophen and ibuprofen for pain however please do not exceed the daily recommended dosage as listed on the packaging and please keep in mind that many namebrand medications contain the same active ingredients. Please avoid these medications if previously instructed to do so by another physician due to other underlying medical condition. Keep in mind that the pain medication I prescribe also contains acetaminophen that must be accounted for when calculating the total amount that you are allowed to take in a day. Return for uncontrolled symptoms, fevers, significantly spreading redness, or anything else that you are concerned about and feel needs emergency department evaluation. Coding Level of Care Code ED Senior Patient Account Representative for Toni Ramírez
[2023-01-03 20:36] VITALS: BP 129/79; PULSE 105; RESP 16; TEMP 36.9; O2SAT 97; BMI 35.1
[2023-01-03 20:47] VITALS: BP 139/88; PULSE 109; RESP 16; O2SAT 97
--- NOTE | 2023-01-03 20:51 | XRR_ITS ---
PROCEDURE INFORMATION: Exam: XR Right Ankle Exam date and time: 01/03/2023 8:56 PM Age: 52 years old Clinical indication: Swelling, leg or foot; Additional info: Lateral ankle wound TECHNIQUE: Imaging protocol: Radiologic exam of the right ankle. Views: 3 or more views. COMPARISON: No relevant prior studies available. FINDINGS: Bones/joints: No evidence of acute fracture or dislocation. No erosive disease. No significant degenerative change. Soft tissues: Circumferential soft tissue swelling is most prominent laterally. No radiopaque foreign body or soft tissue gas. XR/XR ankle RT min 3V* [id number] IMPRESSION: No acute bony injury. Nonspecific soft tissue swelling could reflect ligamentous injury. Inflammatory edema not excluded. No radiopaque foreign body or soft tissue gas.
[2023-01-03 21:05] VITALS: RESP 18; O2SAT 98
[2023-01-03] MEDS: morphine 4 mg/mL SDV 1 mL IM (21:05)
[2023-01-03] MEDS: ondansetron 2 mg/ML SDV 2 mL 4 MG IVP (21:14)
[2023-01-03] MEDS: clindamycin 600 MG/50 ML PREMIX 100 MG IV (21:15)
[2023-01-03 21:19] LABS: Basophils # 0.1 10^3/uL (0.0-0.1); Basophils % 0.8 %; Eosinophils # 0.3 10^3/uL (0.0-0.8); Eosinophils % 2.7 %; Hematocrit 43.6 % (37.0-47.0); Hemoglobin 14.1 g/dL (11.5-15.3); Lymphocytes # 2.8 10^3/uL (0.8-4.8); Mean Corpuscular HGB Conc 32.3 g/dL (30.0-36.0); Mean Corpuscular Hemoglobin 28.4 pg (28.0-34.0); Mean Corpuscular Volume 87.9 fl (81-99); Mean Platelet Volume 10.1 fL (7.4-10.4); Monocytes # 0.9 10^3/uL (0.2-0.9); Monocytes % 8.3 %; Neutrophils # 6.24 10^3/uL (1.8-7.7); Neutrophils % 60.9 %; Nucleated Red Blood Cells % 0 %; Platelet Count 309 10^3/cmm (130-400); Red Blood Count 4.96 10^6/uL (4.1-5.3); Red Cell Distribution Width 13.2 % (12.1-15.1); White Blood Count 10.2 10^3/uL (4.0-10.0)
[2023-01-03 21:36] LABS: Anion Gap 15.6 (5-19); Blood Urea Nitrogen 9 mg/dL (6-20); Calcium 9.1 mg/dL (8.5-10.5); Carbon Dioxide 25 mmol/L (22-29); Chloride 102 mmol/L (98-107); Glomerular Filtration Rate 88.2 mL/min (90-130); Glucose 155 mg/dL (65-115); Osmolality Calculated 290 mOsm/kg (285-295); Potassium 3.6 mmol/L (3.5-5.1); Sodium 139 mmol/L (136-145)
[2023-01-03] MEDS: ketorolac 30 mg/mL INJ 15 MG IVP (21:42)
[2023-01-03 21:53] VITALS: BP 127/100; PULSE 78; RESP 18; O2SAT 98
--- NOTE | 2023-01-04 08:30 | DCPLANNER ---
Addendum entered by Felicita Galvan 01/29/23 11:09: Patient did attend appointment scheduled with ortho Addendum entered by Felicita Galvan 01/13/23 13:46: Patient has a follow up appointment scheduled for Wednesday, January 25, 2023 at 11:[address] Soria at podiatry. Addendum entered by Felicita Galvan 01/06/23 08:41: international sourcing manager received the following message from the podiatry clinic regarding follow up appointment: Left a vm for pt to call back and schedule with Estella Original Note: international sourcing manager had message to schedule a follow up appointment for patient with podiatry. international sourcing manager sent patients information to the front office staff at podiatry. Patients information will be printed and reviewed. Clinic will call patient with appointment information.
== END 2023-01-03 21:52 | disposition home or self-care (01) ==
PROVIDERS: Emergency Provider Emergency Medicine; PCP Nurse Practitioner Family
DX: E11.622 Type 2 diabetes mellitus with other skin ulcer (principal); L97.319 Non-pressure chronic ulcer of right ankle with unspecified severity
CPT/HCPCS: 36415; 73610; 80048; 85025; 87040; 96365; 96372; 96375; 99284; J1885; J2270; J2405; J3490

== ENCOUNTER 2023-01-23 06:43 | Emergency (ER) | payer MEDICAID, SELFPAY ==
[2022-12-18 08:35] VITALS: BP 146/91; BMI 35.5
[2023-01-23 06:59] VITALS: BP 152/103; PULSE 92; RESP 18; TEMP 36.8; O2SAT 95; BMI 34.9
--- NOTE | 2023-01-23 07:10 | ED_ITS ---
HPI - Female Genitourinary General: Chief complaint: Urogenital-Female Stated complaint: bladder pain Time Seen by Provider: 01/23/23 07:02 Source: patient Mode of arrival: ambulatory Limitations: no limitations History of Present Illness: 52yo female presents with urinary/bladder pressure. Patient states she is supposed to have surgery on 02/16 where her bladder will be repaired and she will have a bladder sling. States that she saw her doctor approximately 3 weeks ago and he told her the sides of her bladder are weak and the center would need repaired. Patient states she has been up since 0 300 this morning with pressure type pain. States that she has voided 5 times, but still feels as if she needs to empty her bladder. Patient reports she is having some low back discomfort. She denies any fever, flank pain, nausea, vomiting. Patient reports her blood sugar has been good. Associated symptoms: Deny abdominal pain or nausea Review of Systems Const: Denies: fever(s) or chills Card: Denies: chest pain Resp: Denies: dyspnea GI: Denies: abdominal pain, nausea, vomiting or diarrhea : Reports: difficulty voiding, urinary frequency and prolapse symptoms; Denies: flank pain Musc: Denies: neck pain or extremity swelling Skin/Breast: Denies: skin tenderness Neuro: Denies: weakness in extremities PFSH ED PFSH: Medical History COPD (chronic obstructive pulmonary disease) CVA (cerebral vascular accident) Depression Diabetes mellitus, controlled GERD (gastroesophageal reflux disease) Major depressive disorder, recurrent, moderate YAIR (obstructive sleep apnea) Psychiatric care Surgical History H/O laparoscopy H/O: hysterectomy History of cholecystectomy History of colonoscopy History of tubal ligation Hx of oophorectomy Family History Father CAD (coronary artery disease) Cancer Diabetes Hyperlipidemia Mother Hypertension Psychiatric illness Brother Hypertension Social History Smoking and tobacco status: never smoked Second hand smoke exposure: Yes Alcohol intake: current Alcohol intake frequency: holidays/special occasions only Alcohol type: other Substance/Drug Use: never Adopted: No Caregiver/support person: No Lives independently: Yes Household members: significant other and children Housing: Apartment Marital status: Marital status details: currently lives with ex abrahambanc Number of children: 3 Number of grandchildren: 7 Highest education level completed: High School Graduate service: No Current occupational status: employed Current occupation: [employer], [employer] Current occupational exposures/hazards: No Pets and animals: Yes (4 tiny dogs) Pets & animals: dog(s) Leisure activites: art Sexually active: No Do you think of yourself as: Straight/Heterosexual Current gender identity: Female Merced/Christianity: Latter-day Special merced needs: No Agree to transfusion: No (Jehova's Witness) Financial difficulty paying for basics: Hard Female Reproductive History: Para: 3 Spontaneous abortions: Yes (X 3) Physical Exam Const: COMMON NORMALS: no acute distress, patient oriented x3, healthy appearing and alert GENERAL APPEARANCE: cooperative ORIENTATION/CONSCIOUSNESS: Yes awake OTHER: Patient is sitting reclined on the stretcher in no acute distress. She is interactive with exam appropriately. No family is at bedside HENMT: COMMON NORMALS: normocephalic, atraumatic and Normal external nose present HEAD & SCALP: normocephalic and atraumatic NOSE: Normal external nose present MOUTH: lip normal Eye: GENERAL EYE: appearance normal, both eyes and all related structures Neck/C-Spine: GENERAL: Yes normal visual inspection Chest: CHEST: Yes Symmetrical chest wall rise Resp: COMMON NORMALS: normal respiratory effort Cardio: COMMON NORMALS: regular rate RATE: regular rate GI: COMMON NORMALS: Soft to palpation PALPATION: Yes Soft to palpation and No Guarding due to palpation present (GI) : COMMON NORMALS: No no CVA tenderness BLADDER/KIDNEY EXAM: No no CVA tenderness Back/Pelvis: COMMON NORMALS: negative for no CVA tenderness Extremity: COMMON NORMALS: full ROM and capillary refill normal Neuro: COMMON NORMALS: patient oriented x3 and moves all extremities SENSORIUM/ORIENTATION: Yes alert Psych: COMMON NORMALS: cooperative ATTITUDE: Yes calm Course ED course: Chart review reveals the patient did see Dr. Dewey on 01/01/2023 and was found to have a third-degree cystocele. They discussed at that time pelvic floor exercises versus surgery. She will have surgery to repair the cystocele and placement of bladder sling next month. 10ml post void residual bladder scan UA unremarkable Reevaluation(s): Reevaluation #1: Discussed UA results with patient. Family at bedside. Patient reports she has been passing stool, but does have constipation. She is using clearLAX to have BMs, 2-3 a week. Time: 08:04 Vital Signs: Vital signs: Vital Signs Temperature 98.3 F 01/23/23 06:59 Pulse Rate 92 01/23/23 06:59 Respiratory Rate 18 01/23/23 06:59 Blood Pressure 152/103 01/23/23 06:59 Pulse Oximetry 95 01/23/23 06:59 Oxygen Delivery Me thod Room Air 01/23/23 06:59 MDM - Female Medical Decision Making 52yo female with a history of hysterectomy with oophorectomy, cholecystectomy, DM, CVA, COPD, and depression is here with pelvic pressure and difficulty emptying her bladder. Patient reports that she is due to have bladder surgery on 02/16 to include a repair and a bladder sling. Patient does not know what all is entailed in the repair. She states she has been up since 0 300 this morning with pressure type pain and has voided 5 times, but feels as if she cannot empty her bladder. States that she last saw her doctor approximately 3 weeks ago. She reports her blood sugar has been good. She has not yet taken her medications today. She denies any fever, chills, body aches, any other concerns at this time. Patient is nontoxic in appearance. Vital signs are stable. Differentials include: Bladder prolapse, urinary tract infection, constipation UA unremarkable. 10ml post void residual with bladder scan, no urinary retention. KUB indicates a large amount of stool. Discussed findings with patient and family. Advised the constipation is causing the increased pressure and discomfort. Discussed increasing home ClearLax use vs lactulose. Patient wishes to proceed with lactulose today and continue with ClearLax at home. Recommend she contact Dr Dewey Wednesday if she is still having increased pressure. Advised to return to the emergency department as needed. Medical Records I reviewed the patient's medical records. Lab Data I reviewed the patient's lab results. Radiology Impressions KUB X-Ray 01/23/23 08:01 IMPRESSION: There is a large amount of stool present suggestive of constipation. Laboratory Results Urine Color Yellow (Yellow) 01/23/23 07:42 Urine Appearance Clear (CLEAR) 01/23/23 07:42 Urine pH 5 (5-7) 01/23/23 07:42 Ur Specific [place] 1.020 (1.005-1.030) 01/23/23 07:42 Urine Protein Neg (Negative) 01/23/23 07:42 Urine Glucose (UA) Norm (Normal) 01/23/23 07:42 Urine Ketones Negative (Negative) 01/23/23 07:42 Urine Blood Neg (Negative) 01/23/23 07:42 Urine Nitrate Negative (Negative) 01/23/23 07:42 Urine Bilirubin Neg (Negative) 01/23/23 07:42 Urine Urobilinogen Norm mg/dL (Negative) 01/23/23 07:42 Ur Leukocyte Esterase Negative (Negative) 01/23/23 07:42 Imaging Data KUB: I personally reviewed and interpreted this imaging study as follows: My impression: constipation Discharge Plan Discharge Patient Disposition: Home Clinical Impression: Constipation, Cystocele Condition: Stable Prescriptions: No Action (DME) blood-glucose meter [Blood Glucose Monitoring] Kit See Rx Instructions .ROUTE .MEDSUPPLY Qty: 1 0RF Rx Instructions: check blood sugar daily as directed (DME) Blood Glucose Test Strip See Rx Instructions .ROUTE .MEDSUPPLY Qty: 100 3RF Rx Instructions: check blood sugar (DME) lancets [BD Ultra Fine Lancets] 33 gauge misc See Rx Instructions .ROUTE .MEDSUPPLY Qty: 100 3RF Rx Instructions: check blood sugar daily as directed Spiriva with HandiHaler 18 mcg capsule, w/inhalation device 1 cap INHALATION DAILY@07 Qty: 90 2RF Rx Instructions: puncture 1 cap using device; one dose = 2 inhalations rosuvastatin 20 mg tablet 20 mg PO DAILY polyethylene glycol 3350 [Miralax] 17 gram/dose powder 17 g PO DAILY PRN (Reason: Constipation) nitroglycerin [Nitrostat] 0.4 mg tablet, sublingual 0.4 mg SUBLINGUAL Q5M PRN (Reason: Chest Pain) Qty: 25 3RF fluticasone propion-salmeterol [Advair Diskus] 500-50 mcg/dose blister with device 1 inh inhalation BID Qty: 60 3RF fluoxetine 20 mg/5 mL (4 mg/mL) solution 60 mg PO DAILY@07 Qty: 450 3RF fluticasone propionate 50 mcg/actuation spray,suspension 2 spray intranasal DAILY 360 Days Qty: 16 11RF Rx Instructions: administer into each nostril azelastine 137 mcg (0.1 %) aerosol,spray 1 spray intranasal BID PRN (Reason: Allergy Symptoms) Rx Instructions: administer into each nostril mupirocin 2 % ointment 1 applic topical TID 7 Days Qty: 22 1RF (DME) pen needle, diabetic 32 gauge x 5/32 needle See Rx Instructions .Route Qty: 100 3RF Rx Instructions: As directed (DME) OneTouch Ultra Test Strip See Rx Instructions .ROUTE .COMPLEX Qty: 50 0RF Dose Instruction: USE 1 STRIP TO CHECK GLUCOSE ONCE DAILY DIRECTED . APPOINTMENT REQUIRED FOR FUTURE REFILLS Rx Instructions: USE 1 STRIP TO CHECK GLUCOSE ONCE DAILY DIRECTED . APPOINTMENT REQUIRED FOR FUTURE REFILLS Victoza 3-Rahul 0.6 mg/0.1 mL (18 mg/3 mL) pen injector See Rx Instructions SUBCUT DAILY 90 Days Qty: 27 3RF Rx Instructions: subcutaneously daily; 0.6mg daily for 1 week, 1.2 daily for 1 week and then 1.8mg daily aspirin 81 mg Tablet,Delayed Release (Dr/Ec) 81 mg PO DAILY omeprazole 20 mg capsule,delayed release(DR/EC) 20 mg PO DAILY Qty: 90 0RF Hold Instructions: Resume on 10/31/21. ondansetron 4 mg tablet,disintegrating 4 mg PO Q8H PRN (Reason: nausea and vomiting) Qty: 10 0RF albuterol sulfate 2.5 mg /3 mL (0.083 %) solution for nebulization 2.5 mg inhalation QID PRN (Reason: shortness of breath or wheezing) Qty: 180 2RF albuterol sulfate 90 mcg/actuation HFA aerosol inhaler 2 puff inhalation Q6H PRN (Reason: shortness of breath or wheezing) Qty: 16 0RF celecoxib [Celebrex] 100 mg capsule 100 mg PO BID PRN (Reason: pain) Qty: 30 0RF methocarbamol 750 mg tablet 750 mg PO Q8H PRN (Reason: muscle spasms and pain) Qty: 20 0RF metformin 500 mg tablet 1,000 mg PO BID oxybutynin chloride 10 mg tablet extended release 24hr 10 mg PO DAILY dicyclomine 10 mg capsule 10 mg PO BID PRN (Reason: abdominal pain) Qty: 20 0RF ondansetron 4 mg tablet,disintegrating 4 mg PO Q8H PRN (Reason: nausea and vomiting) Qty: 15 0RF hydrocodone-acetaminophen 5-325 mg tablet 1 tab PO QID PRN (Reason: pain) Qty: 10 0RF Discharge Orders: Discharge ED (Routine); Ordered 01/23/23 Ordered By: Jeevan Hagan Referrals: Suzette Bowman FNP [Primary Care Provider] - Discharge Diet: Usual diet Discharge Activity: Resume usual activity Patient Instructions: Constipation (ED), Cystocele (ED) Activity Restrictions/Additional Instructions: Continue using ClearLax at home Increase your water intake Please contact Dr. Dewey Wednesday if you are still experiencing increased pressure in the pelvic region Return to the emergency department as needed Coding Level of Care Code ED Orthophoto Tech/Draftsman for Toni Ramírez
[2023-01-23 07:33] VITALS: BP 120/84; PULSE 93; RESP 16; O2SAT 95
[2023-01-23 07:46] LABS: Add Urine Microscopic? NO; Charge for UA Resulting for Rev
[2023-01-23 07:52] LABS: Bilirubin Urine Neg (Negative); Blood Urine Neg (Negative); Glucose Urine UA Norm (Normal); Ketones Urine Negative (Negative); Leukocyte Esterase Urine Negative (Negative); Nitrate Urine Negative (Negative); Protein Urine Neg (Negative); Urine Appearance Clear (CLEAR); Urine Color Yellow (Yellow); Urobilinogen Urine Norm (Negative); pH Urine 5 (5-7)
--- NOTE | 2023-01-23 08:01 | XRR_ITS ---
PROCEDURE INFORMATION: Exam: XR Abdomen Exam date and time: 01/23/2023 8:07 AM Age: 52 years old Clinical indication: Constipation.No history of trauma or recent surgery is provided. TECHNIQUE: Imaging protocol: Radiologic exam of the abdomen. 1image(s) are provided. Views: Frontal supine view of the abdomen. 1 View. COMPARISON: CT abdomen pelvis w con* [id number] 12/27/2022 4:45 PM FINDINGS: Gastrointestinal tract: There is a large amount of stool present suggestive of constipation. The bowel gas pattern appears nonobstructive. Intraperitoneal space: No layering free air is appreciated. Organs: There are cholecystectomy clips present. Bones/joints: Osseous alignment is maintained.No interval displaced fracture or dislocation is appreciated. Soft tissues: No radiopaque foreign body or subcutaneous emphysema is appreciated. Other findings: No other significant interval changes are appreciated. XR/XR KUB portable [id number] IMPRESSION: There is a large amount of stool present suggestive of constipation.
[2023-01-23] MEDS: lactulose oral liq 20 gm/30 mL UDC 30 GM PO (08:47)
[2023-01-23 08:52] VITALS: BP 147/95; PULSE 95; RESP 18; O2SAT 96
== END 2023-01-23 08:53 | disposition home or self-care (01) ==
PROVIDERS: Emergency Provider Nurse Practitioner; PCP Nurse Practitioner Family
DX: N81.10 Cystocele, unspecified (principal); K59.00 Constipation, unspecified; Z79.82 Long term (current) use of aspirin; Z79.84 Long term (current) use of oral hypoglycemic drugs; Z77.22 Contact with and (suspected) exposure to environmental tobacco smoke (acute) (chronic); J44.9 Chronic obstructive pulmonary disease, unspecified; Z86.73 Personal history of transient ischemic attack (TIA), and cerebral infarction without residual deficits; E11.9 Type 2 diabetes mellitus without complications
CPT/HCPCS: 51798; 74018; 81003; 99284

== ENCOUNTER 2023-01-25 10:28 | Outpatient (CLI) | payer MEDICAID, SELFPAY ==
[2022-12-18 08:35] VITALS: BP 146/91; BMI 35.5
--- NOTE | 2023-01-25 10:37 | MM_ITS ---
WS: [id number] VIEWS: MLO and CC views both breasts. 3D digital tomosynthesis is also included in this exam. Comparison made with prior exam of 04/18/2013, 01/12/2022.. Findings: There was no sign of mass, architectural distortion or suspicious calcification in either breast. The breasts are heterogeneously dense which may obscure small masses Impression: MM/[place] [id number] BI-RADS: 2-Benign finding. FOLLOW-UP: 1 Year Follow-up This mammogram was also analyzed by the Computer Aided Detection System R2 Imag e Public Relations Consultant.
== END 2023-01-25 10:29 | disposition home or self-care (01) ==
LOC: RAD 10:30 → MOBLMAM 10:37
PROVIDERS: PCP Nurse Practitioner Family; Visit Provider Obstetrics & Gynecology
DX: Z12.31 Encounter for screening mammogram for malignant neoplasm of breast (principal); E11.42 Type 2 diabetes mellitus with diabetic polyneuropathy; I73.9 Peripheral vascular disease, unspecified; M21.6X9 Other acquired deformities of unspecified foot; Z87.2 Personal history of diseases of the skin and subcutaneous tissue; L85.3 Xerosis cutis; Z79.84 Long term (current) use of oral hypoglycemic drugs
CPT/HCPCS: 77063; 77067; 99204

== ENCOUNTER → 2023-02-04 14:13 | Outpatient (BNVA) | payer MEDICAID, SELFPAY ==
[2022-12-18 08:35] VITALS: BP 146/91; BMI 35.5
== END ==
PROVIDERS: PCP Nurse Practitioner Family; Referring Provider Nurse Practitioner Family; Visit Provider Dermatology
DX: L81.4 Other melanin hyperpigmentation (principal); L91.8 Other hypertrophic disorders of the skin; D22.5 Melanocytic nevi of trunk
CPT/HCPCS: 11200; 99203

== ENCOUNTER 2023-02-16 12:55 | Observation (INO) | payer MEDICAID, SELFPAY ==
[2022-12-18 08:35] VITALS: BP 146/91; BMI 35.5
[2023-02-12 11:43] VITALS: BMI 35.3
[2023-02-12 12:23] LABS: Add Urine Microscopic? NO; Charge for UA Resulting for Rev
[2023-02-12 12:27] LABS: Bilirubin Urine Neg (Negative); Blood Urine Neg (Negative); Glucose Urine UA Norm (Normal); Ketones Urine Negative (Negative); Leukocyte Esterase Urine Negative (Negative); Nitrate Urine Negative (Negative); Protein Urine Neg (Negative); Urine Appearance Clear (CLEAR); Urine Color Yellow (Yellow); Urobilinogen Urine 1 mg/dL (Negative); pH Urine 5 (5-7)
[2023-02-12 12:32] LABS: Basophils # 0.1 10^3/uL (0.0-0.1); Basophils % 1.1 %; Eosinophils # 0.2 10^3/uL (0.0-0.8); Eosinophils % 2.3 %; Lymphocytes # 2.3 10^3/uL (0.8-4.8); Lymphocytes % 24.6 %; Mean Corpuscular HGB Conc 33.3 g/dL (30-55); Mean Corpuscular Hemoglobin 29.2 pg (27-33); Mean Corpuscular Volume 87.5 fl (85-98); Mean Platelet Volume 10.2 fL (7.4-10.4); Monocytes # 0.6 10^3/uL (0.2-0.9); Monocytes % 6.4 %; Neutrophils # 6.02 10^3/uL (1.8-7.7); Neutrophils % 65.2 %; Nucleated Red Blood Cells % 0 %; Platelet Count 295 10^3/cmm (157-399); Red Blood Count 5.14 10^6/uL (3.85-5.65); Red Cell Distribution Width 13.2 % (12.1-15.1); White Blood Count 9.23 10^3/uL (3.29-11.43)
--- NOTE | 2023-02-12 12:43 | ANES.PREANE2 ---
Pre-Anesthetic Assessment Height/Weight: Height 1.57 m Weight 87.543 kg Operation Date: 02/16/23 08:25 Proposed Procedures p Anterior colp[orrhaphy 07322, Single incision sling 32516,N81.10,N39.46(Not Applicable) - Boubacar Dewey MD s Sling Single Incision Midurethral Sling(Not Applicable) - Boubacar Dewey MD Familial anesthetic complications: none Was Beta Tasia taken within 24 hours: N/A Was Clonidine taken within 24 hours: N/A Social No alcohol and No tobacco Exam alert, oriented x 3, clear to auscultation bilaterally and regular rate & rhythm Airway Submandibular: within normal limits Cervical ROM: within normal limits Mallampati: Class II Dentition: chipped (Very poor dentition, missing most) Pulmonary Asthma and Sleep Apnea GI Gastroesophageal Reflux Disease Metabolic Diabetes Mellitus, Hyperlipidemia and Morbid Obesity Neuropsych Anxiety, Cerebrovascular Accident and Depression Anesthetic Plan ASA status: 3 Anesthesia: General Medications/Allergies Home Medications Medication Instructions Recorded Confirmed Last Taken Type blood sugar diagnostic (Blood #100 ea 09/03/20 02/08/23 Unknown Rx Glucose Test strips) blood-glucose meter (Blood Glucose #1 ea 09/03/20 02/08/23 Unknown Rx Monitoring kit) lancets 33 gauge (BD Ultra Fine #100 ea 09/03/20 02/08/23 Unknown Rx Lancets) tiotropium bromide 18 mcg capsule 1 cap inhalation DAILY@07 #90 03/10/21 02/12/23 01/29/23 Rx with inhalation device (Spiriva inhalations with HandiHaler) pen needle, diabetic 32 gauge x #100 ea 05/02/21 02/08/23 Unknown Rx aspirin 81 mg tablet,delayed 81 mg PO DAILY 07/21/21 02/12/23 02/12/23 History release omeprazole 20 mg capsule,delayed 20 mg PO DAILY #90 caps 08/13/21 02/12/23 02/10/23 Rx release polyethylene glycol 3350 17 17 g PO DAILY PRN Constipation 09/09/21 02/12/23 02/12/23 History gram/dose oral powder (Miralax) rosuvastatin 20 mg tablet 20 mg PO DAILY 01/26/22 02/12/23 02/12/23 History fluticasone 500 mcg-salmeterol 50 1 inh inhalation BID #60 ea 03/02/22 02/12/23 02/12/23 Rx mcg/dose blistr powdr for inhalation (Advair Diskus) blood sugar diagnostic (OneTouch #50 ea 03/06/22 02/08/23 Unknown Rx Ultra Test strips) ondansetron 4 mg disintegrating 4 mg PO Q8H PRN nausea and 05/06/22 02/12/23 Unknown Rx tablet vomiting #10 tabs nitroglycerin 0.4 mg sublingual 0.4 mg sublingual Q5M PRN Chest 06/15/22 02/12/23 Unknown Rx tablet (Nitrostat) Pain #25 tabs albuterol sulfate 2.5 mg/3 mL 2.5 mg (3 mL) inhalation QID PRN 09/06/22 02/12/23 01/29/23 Rx (0.083 %) solution for nebulization shortness of breath or wheezing #180 mL albuterol sulfate 90 mcg/actuation 2 puff inhalation Q6H PRN 09/06/22 02/12/23 02/12/23 Rx aerosol inhaler shortness of breath or wheezing #16 grams fluticasone propionate 50 2 spray intranasal DAILY 12 months 09/16/22 02/12/23 02/07/23 Rx mcg/actuation nasal #16 grams spray,suspension celecoxib 100 mg capsule (Celebrex) 100 mg PO BID PRN pain #30 caps 10/03/22 02/12/23 02/09/23 Rx methocarbamol 750 mg tablet 750 mg PO Q8H PRN muscle spasms 10/03/22 02/12/23 Unknown Rx and pain #20 tabs azelastine 137 mcg (0.1 %) nasal 1 spray intranasal BID PRN Allergy 10/07/22 02/12/23 02/12/23 History spray aerosol Symptoms fluoxetine 20 mg/5 mL (4 mg/mL) 60 mg (15 mL) PO DAILY@07 #450 mL 11/02/22 02/12/23 02/12/23 Rx oral solution liraglutide 0.6 mg/0.1 mL (18 mg/3 See Rx Instructions SUBCUT DAILY 12/10/22 02/12/23 02/12/23 Rx mL) subcutaneous pen injector 90 days #27 mL (Victoza 3-Rahul) dicyclomine 10 mg capsule 10 mg PO BID PRN abdominal pain 12/27/22 02/12/23 02/05/23 Rx #20 caps metformin 500 mg tablet 1,000 mg PO BID 12/27/22 02/12/23 02/12/23 History ondansetron 4 mg disintegrating 4 mg PO Q8H PRN nausea and 12/27/22 02/08/23 Unknown Rx tablet vomiting #15 tabs oxybutynin chloride 10 mg 10 mg PO DAILY 12/27/22 02/12/23 02/12/23 History tablet,extended release 24 hr mupirocin 2 % topical ointment 1 applic topical TID 7 days #22 01/02/23 02/12/23 02/12/23 Rx grams Diabetic shoes with 3 pairs of #1 ea 01/25/23 02/08/23 Unknown Rx inserts Allergies Allergy/AdvReac Type Severity Reaction Status Date / Time raspberry Allergy Severe closes up Verified 02/08/23 07:57 throat venom-wasp Allergy Severe ALGY-Anaphy Verified 02/08/23 07:57 laxis codeine Allergy ALGY-Difficulty Verified 02/08/23 07:57 Breathing Penicillins Allergy ALGY-Rash Verified 02/08/23 07:57 Sulfa (Sulfonamide Allergy ALGY-Rash Verified 02/08/23 07:57 Antibiotics) [facility] Anesthesia Medical History COPD (chronic obstructive pulmonary disease) CVA (cerebral vascular accident) Depression Diabetes mellitus, controlled GERD (gastroesophageal reflux disease) Major depressive disorder, recurrent, moderate YAIR (obstructive sleep apnea) Psychiatric care Surgical History H/O laparoscopy H/O: hysterectomy History of cholecystectomy History of colonoscopy History of tubal ligation Hx of oophorectomy Family History Father CAD (coronary artery disease) Cancer Diabetes Hyperlipidemia Mother Hypertension Psychiatric illness Brother Hypertension Social History Smoking and tobacco status: never smoked Second hand smoke exposure: Yes Alcohol intake: current Alcohol intake frequency: holidays/special occasions only Alcohol type: other Substance/Drug Use: never Adopted: No Caregiver/support person: No Lives independently: Yes Household members: significant other and children Housing: Apartment Marital status: Marital status details: currently lives with ex zeke Number of children: 3 Number of grandchildren: 7 Highest education level completed: High School Graduate service: No Current occupational status: employed Current occupation: [employer] Current occupational exposures/hazards: No Pets and animals: Yes (4 tiny dogs) Pets & animals: dog(s) Leisure activites: art Sexually active: No Do you think of yourself as: Straight/Heterosexual Current gender identity: Female Merced/Church: Mandaeism Special merced needs: No Agree to transfusion: No (Jehova's Witness) Financial difficulty paying for basics: Hard Female Reproductive History Date of last menstrual period: 05/26/06 Para: 3 Spontaneous abortions: Yes (X 3) Data Anesthesia 02/12/23 12:10 02/12/23 12:10 Short CBC 02/12/23 Range/Units 12:10 WBC 9.23 (3.29-11.43) 10^3/uL Hgb 15.00 (11.27-16.99) g/dL Hct 45.0 (36-47) % MCV 87.5 (85-98) fl Plt Count 295 (157-399) 10^3/cmm Neut % (Auto) 65.2 % Neut # (Auto) 6.02 (1.8-7.7) 10^3/uL Urine 02/12/23 Range/Units 12:10 Urine Color Yellow (Yellow) Urine Appearance Clear (CLEAR) Urine pH 5 (5-7) Ur Specific [place] 1.020 (1.005-1.030) Urine Protein Neg (Negative) Urine Glucose (UA) Norm (Normal) Urine Ketones Negative (Negative) Urine Nitrate Negative (Negative) Urine Bilirubin Neg (Negative) Ur Leukocyte Esterase Negative (Negative) Cardiac Studies: Echocardiogram 08/12/21 Sestamibi Stress Test (Cardiology) 11/24/19
[2023-02-12 12:46] LABS: Albumin Level 4.3 g/dL (3.5-5.2); Chloride 102 mmol/L (98-107)
[2023-02-12 12:59] LABS: Alkaline Phosphatase 118 U/L (35-105); Anion Gap 15.7 (5-19); Aspartate Amino Transferase 25 U/L (0-32); Blood Urea Nitrogen 10 mg/dL (6-20); Calcium 9.6 mg/dL (8.5-10.5); Carbon Dioxide 27 mmol/L (22-29); Globulin 3.5 g/dL (1.3-4.6); Glomerular Filtration Rate 88.2 mL/min (90-130); Glucose 166 mg/dL (65-115); Osmolality Calculated 295 mOsm/kg (285-295); Potassium 3.7 mmol/L (3.5-5.1); Total Bilirubin 0.4 mg/dL (0.15-1.2); Total Protein 7.8 g/dL (6.6-8.7)
[2023-02-12 13:06] LABS: Alanine Aminotransferase 24 U/L (0-33); Sodium 141 mmol/L (136-145)
[2023-02-16] VITALS (19 sets, daily range): BP systolic 108–151; BP diastolic 54–102; PULSE 74–104; RESP 16–30; TEMP 36.6–37.1; O2SAT 93–99; BMI 35.3
--- NOTE | 2023-02-16 07:31 | ECG_ITS ---
[facility] Test Date: 2023-02-16 Pat Name: Gale Veloz Department: Room: Gender: Female Supervisor Waterproofing: : 1970 Requested By: Boubacar Jay Order Number: [id number] Sohail MD: Frank Carson M.D. Measurements Intervals [place] Rate: 88 P: 61 OR: 170 QRS: 45 QRSD: 83 T: 80 QT: 368 QTc: 447 Interpretive Statements SINUS RHYTHM LOW QRS VOLTAGE IN PRECORDIAL LEADS [QRS DEFLECTION < 1.0 mV IN CHEST LEADS] NONSPECIFIC T-WAVE ABNORMALITY Compared to ECG 07/31/2022 20:53:24 Low QRS voltage now present Sinus tachycardia no longer present Possible ischemia no longer present T-wave abnormality still present Electronically Signed On 02-16-2023 9:21:04 CDT by Frank Carson M.D. [id number]
--- NOTE | 2023-02-16 07:56 | P.ANESUD_ITS ---
Pre-Anesthetic Update Pre-Anesthetic Assessment: Date of Surgery/Procedure: 02/16/23 Preop Tatyana gnosis: Cystocele stage III, mixed incontinence Proposed Procedure: Operation Date: 02/16/23 09:10 Proposed Procedures p Anterior colp[orrhaphy 69597, Single incision sling 93119,N81.10,N39.46(Not Applicable) - Boubacar Dewey MD s Sling Single Incision Midurethral Sling(Not Applicable) - Boubacar Dewey MD Any changes to Pre-Anesthetic Assessment?: No Vitals: Temperature 98.5 F 02/16/23 07:46 Temperature Source Temporal Artery S can 02/16/23 07:46 Pulse Rate 94 02/16/23 07:46 Respiratory Rate 18 02/16/23 07:46 Blood Pressure 150/102 02/16/23 07:46 Blood Pressure Radha n 118 02/16/23 07:46 Pulse Oximetry 98 02/16/23 07:46 Oxygen Delivery Me thod Room Air 02/16/23 07:46 Exam: Pre-Anes Outpt Exam: alert, oriented x 3, clear to auscultation bilaterally and regular rate & rhythm Cardiac Studies: Echocardiogram 08/12/21 Sestamibi Stress Test (Cardiology) 11/23
[2023-02-16 08:04] LABS: Glucose Point of Care 56 mg/dL (70-110)
[2023-02-16] MEDS: enoxaparin 30 mg/0.3 mL Syringe SUBCUT (08:13)
[2023-02-16] MEDS: dextrose 50% syringe 50 mL 25 ML IVP (08:13)
[2023-02-16] MEDS: sodium chloride 0.9% 1,000 ML 30 ML IV (08:20)
[2023-02-16] MEDS: vancomycin 1,000 MG in sodium chloride 0.9% 250 ML 250 MG IV (08:41)
[2023-02-16 08:47] LABS: Glucose Point of Care 162 mg/dL (70-110)
--- NOTE | 2023-02-16 09:31 | W.PM.OPSUD ---
Surgery/Procedure H&P Update DATE OF PROCEDURE: February 16, 2023 DATE H&P PERFORMED: 02/08/23 H&P UPDATE INFORMATION: I have reviewed H&P completed within last 30 days, I have examined patient prior to procedure and No changes to prior documentation PREOP DIAGNOSIS: Cystocele stage III, mixed incontinence PLANNED PROCEDURE: Operation Date: 02/16/23 09:10 Proposed Procedures p Anterior colp[orrhaphy 74813, Single incision sling 73015,N81.10,N39.46(Not Applicable) - Boubacar Dewey MD s Sling Single Incision Midurethral Sling(Not Applicable) - Boubacar Dewey MD
[2023-02-16] MEDS: lidocaine-epi 2% 20 mL INJ INJECTION (10:41)
[2023-02-16] MEDS: estrogens Conjugated Cream 30 gm 1 APPLIC VAGINAL (11:31)
--- NOTE | 2023-02-16 11:44 | PM.OP ---
Operative Report Date of procedure: February 16, 2023 Pre-op diagnosis: Cystocele Urinary stress incontinence Post-op diagnosis: Same Post-op findings: Cystocele Procedure done: Anterior colporrhaphy augmented with allograft Single incision mid urethral sling Cystoscopy Implants: Coloplast single incision sling Surgeon: Boubacar Dewey MD Estimated blood loss (mL): 100 IV fluids (mL): 700 Urine output (mL): 100 Procedure: After obtaining informed consent, the patient was taken to the operating room and placed in the supine position, given general anesthesia, and prepped and draped in sterile fashion. The abdomen, vulva and vagina were prepped and draped in a sterile manner. A time out procedure was performed. The anterior vaginal mucosa beneath the midurethra was infiltrated with 0.5% Marcaine with epinephrine. A vertical midline incision was made beneath the midurethra, nearly 1.5 cm length. Careful submucosal dissection was performed bilaterally up to the interior portion of the inferior pubic ramus. The insertion of adductor longus tendon on the patient?s pubic ramus was identified as reference land richelle. Palpated the notch along the internal edge of ischiopubic ramus where the adductor longus tendon and the inferior pubic ramus meet. The Altis single incision sling (SIS) was selected. Then the needle of the SIS inserted aiming at the location of this notch. One of the integrated self-fixating tips place onto the needle by sliding it over the end of the needle. The needle/sling assembly was inserted toward the location of identified reference notch making sure that the flat of the handle is perpendicular to the desired path. The needle was tracked along the posterior surface of the ischiopubic ramus until the midline richelle on the mesh is approximately at the midline position under the urethra. The needle was removed and the same was repeated on the contralateral side until the appropriate sling tension under the urethra was achieved ensuring that the mesh lays flat. The needle was removed and vaginal incision was closed in a running interlocking fashion with 2-0 Vicryl. The vaginal mucosa was then injected in the midline with normal saline. The vaginal mucosa was scored in the midline with the Bovie approximately 1 cm medial to the urethral meatus to 1 cm distal to the vaginal cuff. This vaginal mucosa was then undermined and then incised in the midline with the Metzenbaum scissors. The lateral aspects of the vaginal mucosa were then grasped with the Allis clamps and the vaginal mucosa was then dissected off the underlying fascia with the Metzenbaum scissors. Again, there was noted to be quite a bit of oozing at the incision, which was controlled with cautery. After adequate dissection was performed, bilaterally. An Coloplast dermis allograft modified at time of application to fit spacea, 3 x 3 cm piece . The allograft placed in front of cystocele ready to be implanted facing the vagina mucosa. Suture is placed at distal end of graft and placed towards vaginal cuff. Final suture is placed on proximal portion of the graft to complete the placement overlying the bladder. Then Interrupted vertical mattress sutures of 0 Vicryl were used to elevate the cystocele superiorly. The excessive vaginal mucosa was then trimmed with the Metzenbaum scissors and the vaginal mucosa was then reapproximated in the running interlocking fashion with 2-0 Vicryl. Then the Thapa catheter was removed and cystoscope was inserted. The bladder was filled with sterile water. Complete evaluation of the bladder mucosa was performed noting no lacerations, dimpling, tears, bleeding of the mucosa or muscular layers. Both ureteral orifices were identified. Prompt excretion of urine from both ureteral orifices was noted. Cystoscope was withdrawn. The Thapa catheter was replaced. Excellent hemostasis was obtained. A vaginal pack is placed overnight as postoperative support for the vaginal tissues after graft placement and closure of vaginal incisions. Sponge, lap, needle, and instrument counts were correct times three. The patient was taken to the recovery room, awake and in stable condition.
--- NOTE | 2023-02-16 12:35 | ANE.PACU2 ---
Inpatient post-anesthesia follow up: Airway intact: Yes Vital signs: Temperature 98.0 F Pulse Rate 102 Respiratory Rate 25 Blood Pressure 139/88 Pulse Oximetry 94 Oxygen Delivery Me thod Nasal Cannula Oxygen Flow Rate 3 Fraction of Inspir ed Oxygen Hydration adequate: Yes Nausea and vomiting: No Pain level: 1 Mental status: Baseline
--- NOTE | 2023-02-16 12:37 | SUR.PHASEI ---
1220 DR Pete notified of elevated blood pressures. Explained to Dr Pete that pressures are in same range as when arrived to OPS. No orders given.
[2023-02-16] MEDS: ketorolac 30 mg/mL INJ IVP ×2 (13:26→19:51)
[2023-02-16] MEDS: dextrose 5%-lactated ringers 1,000 ML 125 ML IV (13:26)
[2023-02-16] MEDS: HYDROcodone-acetaminophen 5-325 mg Tablet PO (13:27)
--- NOTE | 2023-02-16 15:22 | PC.NURSE ---
Pt received to floor from surgery via [place]. Pt assisted from gurney to bed, tolerated well. VSS. Call light discussed and in reach. Plan of care discussed.
[2023-02-16] MEDS: metformin 500 mg Tablet 1000 MG PO (19:52)
[2023-02-17 04:24] VITALS: BP 103/55; PULSE 95; RESP 16; TEMP 37; O2SAT 98
--- NOTE | 2023-02-17 05:34 | PC.NURSE ---
This nurse removed the vaginal packing at 0530. Packing intact upon removal.
--- NOTE | 2023-02-17 06:12 | PC.NURSE ---
Patient voided 100ml at this time, bladder was scanned 27ml remained.
[2023-02-17 06:18] LABS: Hematocrit 39.2 % (36-47); Mean Corpuscular HGB Conc 32.9 g/dL (30-55); Mean Corpuscular Hemoglobin 29.2 pg (27-33); Mean Corpuscular Volume 88.7 fl (85-98); Mean Platelet Volume 10.3 fL (7.4-10.4); Platelet Count 284 10^3/cmm (157-399); Red Blood Count 4.42 10^6/uL (3.85-5.65); Red Cell Distribution Width 13.2 % (12.1-15.1); White Blood Count 14.32 10^3/uL (3.29-11.43)
--- NOTE | 2023-02-17 09:36 | P.DS_ITS ---
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 Veloz 52-year-old female with a history of cystocele and mixed urinary incontinence. Admitted for planned anterior colporrhaphy augmented with allograft and single incision mid urethral sling. The procedures were performed without complication. Overnight observation was uneventful. She is afebrile and hemodynamically stable postoperative day 1. PVR within normal limits. Tolerating diet well. Ambulating without difficulty. She was counseled regarding pelvic rest for 6 weeks (no sex, no tampons, no vaginal douches). Return to the emergency room if any fever, increased bleeding or pain. Physical Exam Narrative: GA: Alert and oriented ?3. HEENT: WNL. Heart: Regular rate and rhythm. Lungs: Clear to auscultation bilaterally. Abdomen: Bowel sounds present, nontender, MANAGER PROPERTY: Spotting bleeding. Extremities: No edema, no cyanosis, no calves pain. Urinary Catheter Management: Thapa: Cath Placed During This Visit: yes, but has since been removed by the nurse Reason for Continuing Indwelling Catheter: Decision to DC Catheter Urinary Catheter Date of Insertion: 02/16/23 Urinary Catheter Time of Insertion: 10:22 Date Urinary Catheter Removed: 02/17/23 Time Urinary Catheter Discontinued: 05:33 History History History 5 Term 3 0 Miscarriages/Ectopic 2 Living Children 3 Discharge Data Studies Completed and Pending Laboratory Results WBC 14.32 10^3/uL (3.29-11.43) H 02/17/23 05:30 RBC 4.42 10^6/uL (3.85-5.65) 02/17/23 05:30 Hgb 12.90 g/dL (11.27-16.99) 02/17/23 05:30 Hct 39.2 % (36-47) 02/17/23 05:30 MCV 88.7 fl (85-98) 02/17/23 05:30 MCH 29.2 pg (27-33) 02/17/23 05:30 MCHC 32.9 g/dL (30-55) 02/17/23 05:30 RDW 13.2 % (12.1-15.1) 02/17/23 05:30 Plt Count 284 10^3/cmm (157-399) 02/17/23 05:30 MPV 10.3 fL (7.4-10.4) 02/17/23 05:30 Neut % (Auto) 65.2 % 02/12/23 12:10 Lymph % (Auto) 24.6 % 02/12/23 12:10 Mathews % (Auto) 6.4 % 02/12/23 12:10 Eos % (Auto) 2.3 % 02/12/23 12:10 Baso % (Auto) 1.1 % 02/12/23 12:10 Neut # (Auto) 6.02 10^3/uL (1.8-7.7) 02/12/23 12:10 Lymph # (Auto) 2.3 10^3/uL (0.8-4.8) 02/12/23 12:10 Mathews # (Auto) 0.6 10^3/uL (0.2-0.9) 02/12/23 12:10 Eos # (Auto) 0.2 10^3/uL (0.0-0.8) 02/12/23 12:10 Baso # (Auto) 0.1 10^3/uL (0.0-0.1) 02/12/23 12:10 Nucleated RBC % (auto) 0 % 02/12/23 12:10 Nucleated RBCs # 0.0 /100WBC 02/12/23 12:10 Sodium 141 mmol/L (136-145) 02/12/23 12:10 Potassium 3.7 mmol/L (3.5-5.1) 02/12/23 12:10 Chloride 102 mmol/L (98-107) 02/12/23 12:10 Carbon Dioxide 27 mmol/L (22-29) 02/12/23 12:10 Anion Gap 15.7 (5-19) 02/12/23 12:10 BUN 10 mg/dL (6-20) 02/12/23 12:10 Creatinine 0.7 mg/dL (0.5-0.9) 02/12/23 12:10 GFR Calculation 88.2 mL/min (90-130) L 02/12/23 12:10 Glucose 166 mg/dL (65-115) H 02/12/23 12:10 POC Glucose 162 mg/dL (70-110) H 02/16/23 08:44 Calculated Osmolality 295 mOsm/kg (285-295) 02/12/23 12:10 Calcium 9.6 mg/dL (8.5-10.5) 02/12/23 12:10 Total Bilirubin 0.4 mg/dL (0.15-1.2) 02/12/23 12:10 AST 25 U/L (0-32) 02/12/23 12:10 ALT 24 U/L (0-33) 02/12/23 12:10 Alkaline Phosphatase 118 U/L (35-105) H 02/12/23 12:10 Total Protein 7.8 g/dL (6.6-8.7) 02/12/23 12:10 Albumin 4.3 g/dL (3.5-5.2) 02/12/23 12:10 Globulin 3.5 g/dL (1.3-4.6) 02/12/23 12:10 Urine Color Yellow (Yellow) 02/12/23 12:10 Urine Appearance Clear (CLEAR) 02/12/23 12:10 Urine pH 5 (5-7) 02/12/23 12:10 Ur Specific [place] 1.020 (1.005-1.030) 02/12/23 12:10 Urine Protein Neg (Negative) 02/12/23 12:10 Urine Glucose (UA) Norm (Normal) 02/12/23 12:10 Urine Ketones Negative (Negative) 02/12/23 12:10 Urine Blood Neg (Negative) 02/12/23 12:10 Urine Nitrate Negative (Negative) 02/12/23 12:10 Urine Bilirubin Neg (Negative) 02/12/23 12:10 Urine Urobilinogen 1 mg/dL (Negative) H 02/12/23 12:10 Ur Leukocyte Esterase Negative (Negative) 02/12/23 12:10 Vitals Last Vital Signs Temp 98.6 F 02/17/23 04:24 Pulse 95 02/17/23 04:24 Resp 16 02/17/23 04:24 BP 103/55 02/17/23 04:24 Pulse Ox 98 02/17/23 04:24 O2 Del Method Nasal Cannula 02/17/23 04:24 O2 Flow Rate 2 02/17/23 04:24 Discharge Plan Discharge Patient Disposition: Home Condition: Good Prescriptions: New acetaminophen 325 mg capsule 325 mg PO Q4H PRN (Reason: fever or pain) Qty: 60 0RF ibuprofen 800 mg tablet 800 mg PO TID PRN (Reason: pain) Qty: 60 0RF Continued (DME) blood-glucose meter [Blood Glucose Monitoring] Kit See Rx Instructions .ROUTE .MEDSUPPLY Qty: 1 0RF Rx Instructions: check blood sugar daily as directed (DME) Blood Glucose Test Strip See Rx Instructions .ROUTE .MEDSUPPLY Qty: 100 3RF Rx Instructions: check blood sugar (DME) lancets [BD Ultra Fine Lancets] 33 gauge misc See Rx Instructions .ROUTE .MEDSUPPLY Qty: 100 3RF Rx Instructions: check blood sugar daily as directed Spiriva with HandiHaler 18 mcg capsule, w/inhalation device 1 cap INHALATION DAILY@07 Qty: 90 2RF Rx Instructions: puncture 1 cap using device; one dose = 2 inhalations rosuvastatin 20 mg tablet 20 mg PO DAILY polyethylene glycol 3350 [Miralax] 17 gram/dose powder 17 g PO DAILY PRN (Reason: Constipation) nitroglycerin [Nitrostat] 0.4 mg tablet, sublingual 0.4 mg SUBLINGUAL Q5M PRN (Reason: Chest Pain) Qty: 25 3RF fluticasone propion-salmeterol [Advair Diskus] 500-50 mcg/dose blister with device 1 inh inhalation BID Qty: 60 3RF fluoxetine 20 mg/5 mL (4 mg/mL) solution 60 mg PO DAILY@07 Qty: 450 3RF fluticasone propionate 50 mcg/actuation spray,suspension 2 spray intranasal DAILY 360 Days Qty: 16 11RF Rx Instructions: administer into each nostril azelastine 137 mcg (0.1 %) aerosol,spray 1 spray intranasal BID PRN (Reason: Allergy Symptoms) Rx Instructions: administer into each nostril mupirocin 2 % ointment 1 applic topical TID 7 Days Qty: 22 1RF (DME) Diabetic shoes with 3 pairs of inserts See Rx Instructions .Route .MEDSUPPLY Qty: 1 0RF Rx Instructions: As directed (DME) pen needle, diabetic 32 gauge x 5/32 needle See Rx Instructions .Route Qty: 100 3RF Rx Instructions: As directed (DME) OneTouch Ultra Test Strip See Rx Instructions .ROUTE .COMPLEX Qty: 50 0RF Dose Instruction: USE 1 STRIP TO CHECK GLUCOSE ONCE DAILY DIRECTED . APPOINTMENT REQUIRED FOR FUTURE REFILLS Rx Instructions: USE 1 STRIP TO CHECK GLUCOSE ONCE DAILY DIRECTED . APPOINTMENT REQUIRED FOR FUTURE REFILLS Victoza 3-Rahul 0.6 mg/0.1 mL (18 mg/3 mL) pen injector See Rx Instructions SUBCUT DAILY 90 Days Qty: 27 3RF Rx Instructions: subcutaneously daily; 0.6mg daily for 1 week, 1.2 daily for 1 week and then 1.8mg daily aspirin 81 mg Tablet,Delayed Release (Dr/Ec) 81 mg PO DAILY omeprazole 20 mg capsule,delayed release(DR/EC) 20 mg PO DAILY Qty: 90 0RF Hold Instructions: Resume on 10/31/21. ondansetron 4 mg tablet,disintegrating 4 mg PO Q8H PRN (Reason: nausea and vomiting) Qty: 10 0RF albuterol sulfate 2.5 mg /3 mL (0.083 %) solution for nebulization 2.5 mg inhalation QID PRN (Reason: shortness of breath or wheezing) Qty: 180 2RF albuterol sulfate 90 mcg/actuation HFA aerosol inhaler 2 puff inhalation Q6H PRN (Reason: shortness of breath or wheezing) Qty: 16 0RF celecoxib [Celebrex] 100 mg capsule 100 mg PO BID PRN (Reason: pain) Qty: 30 0RF methocarbamol 750 mg tablet 750 mg PO Q8H PRN (Reason: muscle spasms and pain) Qty: 20 0RF metformin 500 mg tablet 1,000 mg PO BID oxybutynin chloride 10 mg tablet extended release 24hr 10 mg PO DAILY dicyclomine 10 mg capsule 10 mg PO BID PRN (Reason: abdominal pain) Qty: 20 0RF ondansetron 4 mg tablet,disintegrating 4 mg PO Q8H PRN (Reason: nausea and vomiting) Qty: 15 0RF Discharge Orders: Discharge Order (Routine); Ordered 02/17/23 Ordered By: Boubacar Dewey Discharge Diet: Usual diet Discharge Activity: Limit activity as instructed Patient Instructions: Opioid Safety, Bladder Sling for Women (GEN), Anterior Vaginal Repair (GEN) Activity Restrictions/Additional Instructions: 1. Please call [facility] on next working day to make your post-operative appointment in 2 weeks. 2. Please stay home until you come back to the clinic on first post- hospatilization check up. 3. Please follow instructions on your medications CAREFULLY. 4. If you have abdominal incision, do not cover it unless dressing is necessary because of drainage. OK to shower, but avoid bath. Leave steri-strips until they fall off. If they are still on one week after surgery, you may remove them. 5. If you had vaginal surgery or vaginal repair, Dr. Dewey may instruct you to take SITZ bath. 6. Yellow, blood tinged odorous vaginal discharge is usually normal after hysterectomy or vaginal surgeries. 7. No SEXUAL INTERCOURSE, tampons, or douches until you are completely released from the post-operative care. 8. Avoid constipation by eating right and maybe using some Metamucil or Milk of Magnesia. 9. All prescription refills are given during the working hours. Please do no wait till it runs out. Call the clinic at [phone] before your medication runs out. The clinic will get in touch with your doctor to prescribe medications if necessary. 10. Please remain within 40 mile radius from our hospital because emergencies do happen now and then during the post-operative period. 11. If you have stairs at home, take one step at a time slowly and minimize the number of trips. It helps to stay in one floor for the next few days. No lifting except what you can lift by one hand until you are released from the post-operative care. 12. Driving is discouraged until you are well healed. It may be 3-4 weeks before you feel strong enough to drive. You should be able to turn and look through the rear window without pain and you should be able to push the brake pedal very hard without pain before you drive. No fast rules, but SAFETY should be your primary concern. DO NOT drive if you are on sedating medications such as narcotics. 13. Call the clinic (during working hours) to make urgent appointment or go to the Emergency room, if any of the following occurs: i. Vaginal bleeding becomes heavy, more than a period. ii. Incision becomes red and sore, or drains pus. iii. Your TEMPERATURE is over 100.4F or you have chill. iv. IV site becomes red and swollen (a little ``knot?? is usually OK) v. Persistent nausea and vomiting vi. Persistent constipation or diarrhea vii. Rash or allergic reaction to medications. 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
[2023-02-17 12:05] VITALS: BP 115/77; PULSE 97; RESP 16; TEMP 36.7; O2SAT 95
== END 2023-02-17 12:10 | disposition home or self-care (01) ==
LOC: OBGYN 16:01
PROVIDERS: Admitting Provider Obstetrics & Gynecology; PCP Nurse Practitioner Family; Visit Provider Obstetrics & Gynecology
PROC: 0JQC0ZZ Repair Pelvic Region Subcutaneous Tissue and Fascia, Open Approach (ICD-10-PCS; CPT 57240; principal; 2023-02-16 09:00)
PROC: (CPT 57288; 2023-02-16 09:00)
PROC: 0TJB8ZZ Inspection of Bladder, Via Natural or Artificial Opening Endoscopic (ICD-10-PCS; CPT 52000; 2023-02-16 09:00)
DX: N81.10 Cystocele, unspecified (principal); N39.3 Stress incontinence (female) (male); K21.9 Gastro-esophageal reflux disease without esophagitis; E11.9 Type 2 diabetes mellitus without complications; E78.5 Hyperlipidemia, unspecified; E66.01 Morbid (severe) obesity due to excess calories; Z68.35 Body mass index [BMI] 35.0-35.9, adult; Z79.82 Long term (current) use of aspirin; J44.9 Chronic obstructive pulmonary disease, unspecified; Z86.73 Personal history of transient ischemic attack (TIA), and cerebral infarction without residual deficits; G47.33 Obstructive sleep apnea (adult) (pediatric)
CPT/HCPCS: 57240; 57288; 36415; 36416; 51798; 80053; 81003; 82962; 85025; 85027; 93005; A7003; C1713; C1762; G0378; J1100; J1650; J1885; J2371; J2405; J2704; J3010; J3370; J3490; J7030; J7050; J7121

== ENCOUNTER → 2023-03-02 12:15 | Outpatient (BNVA) | payer MEDICAID, SELFPAY ==
[2022-12-18 08:35] VITALS: BP 146/91; BMI 35.5
== END ==
PROVIDERS: PCP Nurse Practitioner Family; Visit Provider Nurse Practitioner Women's Health
DX: N39.46 Mixed incontinence (principal)
CPT/HCPCS: 81000; 87086

== ENCOUNTER → 2023-03-24 10:44 | Outpatient (BNVA) | payer MEDICAID, SELFPAY ==
[2022-12-18 08:35] VITALS: BP 146/91; BMI 35.5
== END ==
PROVIDERS: PCP Nurse Practitioner Family; Visit Provider Internal Medicine
DX: E11.9 Type 2 diabetes mellitus without complications (principal); E78.5 Hyperlipidemia, unspecified; E66.9 Obesity, unspecified
CPT/HCPCS: 36415; 80053; 80061; 82044; 83036

== ENCOUNTER → 2023-04-15 12:37 | Outpatient (BNVA) | payer MEDICAID, SELFPAY ==
[2022-12-18 08:35] VITALS: BP 146/91; BMI 35.5
== END ==
PROVIDERS: PCP Nurse Practitioner Family; Visit Provider Internal Medicine Pulmonary Disease
DX: J45.909 Unspecified asthma, uncomplicated (principal); G47.33 Obstructive sleep apnea (adult) (pediatric); J98.4 Other disorders of lung; J31.0 Chronic rhinitis; Z99.89 Dependence on other enabling machines and devices; E66.9 Obesity, unspecified; Z68.33 Body mass index [BMI] 33.0-33.9, adult; Z77.22 Contact with and (suspected) exposure to environmental tobacco smoke (acute) (chronic)
CPT/HCPCS: 99214

== ENCOUNTER 2023-05-18 16:33 | Emergency (ER) | payer MEDICAID, SELFPAY ==
[2023-05-17 08:20] VITALS: BP 146/91; BMI 35.5
--- NOTE | 2023-05-18 16:39 | ECG_ITS ---
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 Measurements Intervals [place] Rate: 85 P: 71 HI: 178 QRS: 69 QRSD: 82 T: 84 QT: 351 QTc: 418 Interpretive Statements SINUS RHYTHM LOW QRS VOLTAGE IN PRECORDIAL LEADS [QRS DEFLECTION < 1.0 mV IN CHEST LEADS] NONSPECIFIC T-WAVE ABNORMALITY INTERPRETATION BASED ON A DEFAULT AGE OF 40 YEARS Compared to ECG 02/16/2023 08:25:57 No significant changes Electronically Signed On 05-18-2023 22:21:50 LEAD ENTERPRISE ARCHITECT by Mckenzie Argueta M.D. [email or web address]
--- NOTE | 2023-05-18 16:41 | XRR_ITS ---
PROCEDURE INFORMATION: Exam: XR Chest Exam date and time: 05/18/2023 4:59 PM Age: 52 years old Clinical indication: Pain; Chest pressure; Additional info: Cp TECHNIQUE: Imaging protocol: Radiologic exam of the chest. Views: 1 view. COMPARISON: CR XR chest 1V portable [id number] 09/19/2022 10:26 PM FINDINGS: Lungs: Unremarkable. No consolidation. Pleural spaces: Unremarkable. No pleural effusion. No pneumothorax. Heart/Mediastinum: Unremarkable. No cardiomegaly. Bones/joints: Unremarkable. XR/XR chest 1V portable [id number] IMPRESSION: No acute findings.
[2023-05-18 16:42] VITALS: BP 108/71; PULSE 91; RESP 17; TEMP 36.5; O2SAT 98; BMI 32.9
--- NOTE | 2023-05-18 17:11 | ED_ITS ---
HPI - Chest Pain 2 General: Chief Complaint: Chest Pain Stated Complaint: chest pain Time Seen by Provider: 05/18/23 16:42 Source: patient Mode of arrival: ambulatory Limitations: no limitations History of Present Illness: 52-year-old female states she had chest pain that started this morning. States has been a sharp stabbing pain in her left chest and her left neck. She denies any worsening improving factors she denies any nausea or shortness of breath. Denies any cough or fever. States the pain currently is a 3 out of 10 Associated symptoms: Deny abdominal pain, dyspnea, fever(s), nausea or vomiting Review of Systems 2 Const: Denies: fever(s) or chills Eyes: Denies: eye discomfort ENMT: Denies: throat pain or dental pain Card: Reports: chest pain Resp: Denies: dyspnea GI: Denies: abdominal pain, nausea, vomiting or diarrhea Musc: Denies: neck pain or back pain Skin/Breast: Denies: rash Neuro: Denies: headache(s) PFSH ED 2 PFSH: Medical History COPD (chronic obstructive pulmonary disease) CVA (cerebral vascular accident) Depression Diabetes mellitus, controlled GERD (gastroesophageal reflux disease) Major depressive disorder, recurrent, moderate YAIR (obstructive sleep apnea) Psychiatric care Surgical History H/O laparoscopy H/O: hysterectomy History of anterior colporrhaphy (~02/16/23) Anterior colporrhaphy augmented with allograft, single incision mid urethral sling, cystoscopy. Performed by Maco. History of cholecystectomy History of colonoscopy History of tubal ligation Hx of oophorectomy Family History Father CAD (coronary artery disease) Cancer Diabetes Hyperlipidemia Mother Hypertension Psychiatric illness Brother Hypertension Social History Smoking and tobacco/nicotine status: never used tobacco/nicotine Second hand smoke exposure: Yes Alcohol intake: current Alcohol intake frequency: holidays/special occasions only Alcohol type: other Substance/Drug Use: never Adopted: No Caregiver/support person: No Lives independently: Yes Household members: significant other and children Housing: Apartment Marital status: Marital status details: currently lives with ex zeke Number of children: 3 Number of grandchildren: 7 Highest education level completed: High School Graduate service: No Current occupational status: employed Current occupation: [employer] Current occupational exposures/hazards: No Pets and animals: Yes (4 tiny dogs) Pets & animals: dog(s) Leisure activites: art Sexually active: No Do you think of yourself as: Straight/Heterosexual Current gender identity: Female Merced/Restoration: Mu-ism Special merced needs: No Agree to transfusion: No (Jehova's Witness) Female Reproductive History: Para: 3 Spontaneous abortions: Yes (X 3) Physical Exam 2 Const: COMMON NORMALS: no acute distress, patient oriented x3 and healthy appearing HENMT: COMMON NORMALS: normocephalic and atraumatic HEAD & SCALP: n ormocephalic and atraumatic Eye: COMMON NORMALS: Equal, round and reactive pupils present and EOMs intact bilaterally PUPIL: Yes Equal, round and reactive pupils present Neck/C-Spine: COMMON NORMALS: full ROM and supple Chest: COMMONS NORMALS: normal inspection of the chest and normal palpation of entire chest wall Resp: COMMON NORMALS: normal respiratory effort, No retractions, No use of accessory muscles and clear to auscultation bilaterally AUSCULTATION: clear to auscultation bilaterally Cardio: COMMON NORMALS: regular rate, regular rhythm and No murmurs present (Cardio) RATE: regular rate RHYTHM: regular rhythm GI: COMMON NORMALS: Normal to inspection, nondistended, normoactive bowel sounds present, Soft to palpation, non-tender and no masses PALPATION: Yes Soft to palpation Extremity: COMMON NORMALS: normal to inspection and full ROM Neuro: COMMON NORMALS: patient oriented x3, moves all extremities and no focal motor deficits Psych: COMMON NORMALS: mental status grossly normal, Normal thought process present and cooperative THOUGHT PROCESS: Normal thought process present Skin: COMMON NORMALS: no rashes or lesions noted and no wounds GENERAL SKIN EXAM: no rashes or lesions noted Course 2 Vital Signs: Vital signs: Vital Signs Temperature 97.7 F 05/18/23 16:42 Pulse Rate 84 05/18/23 17:33 Respiratory Rate 18 05/18/23 20:33 Blood Pressure 121/79 05/18/23 17:33 Pulse Oximetry 96 05/18/23 20:33 Oxygen Delivery Me thod Room Air 05/18/23 16:42 MDM - Chest Pain Medical Decision Making Patient presents here with chest pains atypical in nature troponins EKG x-ray here are all normal we will place her on Protonix she is to follow-up with her PCP and return if worsening Medical Records I reviewed the patient's medical records. Lab Data I reviewed the patient's lab results. 05/18/23 17:13 05/18/23 17:13 Radiology Impressions Chest X-Ray 05/18/23 16:41 IMPRESSION: No acute findings. Laboratory Results WBC 8.91 10^3/uL (3.29-11.43) 05/18/23 17:13 RBC 4.85 10^6/uL (3.85-5.65) 05/18/23 17:13 Hgb 13.90 g/dL (11.27-16.99) 05/18/23 17:13 Hct 43.1 % (36-47) 05/18/23 17:13 MCV 88.9 fl (85-98) 05/18/23 17:13 MCH 28.7 pg (27-33) 05/18/23 17:13 MCHC 32.3 g/dL (30-55) 05/18/23 17:13 RDW 13.0 % (12.1-15.1) 05/18/23 17:13 Plt Count 267 10^3/cmm (157-399) 05/18/23 17:13 MPV 10.1 fL (7.4-10.4) 05/18/23 17:13 Neut % (Auto) 59.3 % 05/18/23 17:13 Lymph % (Auto) 27.9 % 05/18/23 17:13 [place] % (Auto) 8.0 % 05/18/23 17:13 Eos % (Auto) 3.7 % 05/18/23 17:13 Baso % (Auto) 0.8 % 05/18/23 17:13 Neut # (Auto) 5.28 10^3/uL (1.8-7.7) 05/18/23 17:13 Lymph # (Auto) 2.5 10^3/uL (0.8-4.8) 05/18/23 17:13 [place] # (Auto) 0.7 10^3/uL (0.2-0.9) 05/18/23 17:13 Eos # (Auto) 0.3 10^3/uL (0.0-0.8) 05/18/23 17:13 Baso # (Auto) 0.1 10^3/uL (0.0-0.1) 05/18/23 17:13 Nucleated RBC % (auto) 0 % 05/18/23 17:13 Nucleated RBCs # 0.0 /100WBC 05/18/23 17:13 PT 13.60 SECONDS (12.1-14.9) 05/18/23 17:13 INR 1.01 (0.8-1.2) 05/18/23 17:13 Sodium 142 mmol/L (136-145) 05/18/23 17:13 Potassium 3.4 mmol/L (3.5-5.1) L 05/18/23 17:13 Chloride 105 mmol/L (98-107) 05/18/23 17:13 Carbon Dioxide 26 mmol/L (22-29) 05/18/23 17:13 Anion Gap 14.4 (5-19) 05/18/23 17:13 BUN 8 mg/dL (6-20) 05/18/23 17:13 Creatinine 0.7 mg/dL (0.5-0.9) 05/18/23 17:13 GFR Calculation 88.2 mL/min (90-130) L 05/18/23 17:13 Glucose 82 mg/dL (65-115) 05/18/23 17:13 Calculated Osmolality 291 mOsm/kg (285-295) 05/18/23 17:13 Calcium 8.9 mg/dL (8.5-10.5) 05/18/23 17:13 Total Bilirubin 0.3 mg/dL (0.15-1.2) 05/18/23 17:13 AST 17 U/L (0-32) 05/18/23 17:13 ALT 15 U/L (0-33) 05/18/23 17:13 Alkaline Phosphatase 111 U/L (35-105) H 05/18/23 17:13 Troponin T Baseline < 6 ng/L (0-10) 05/18/23 17:13 Troponin T 120 Minute 6.00 ng/L (0-10) 05/18/23 19:05 Delta Troponin T 0.83017 ABS# (0-10) 05/18/23 19:05 Total Protein 6.9 g/dL (6.6-8.7) 05/18/23 17:13 Albumin 4.1 g/dL (3.5-5.2) 05/18/23 17:13 Globulin 2.8 g/dL (1.3-4.6) 05/18/23 17:13 No radiology studies performed this visit EKG Data EKG 1: I personally reviewed and interpreted this EKG as follows: EKG interpretation date: 05/18/23 EKG interpretation time: 16:39 Interpretation: nsr hr [address] or t wave abnormalities qrs 82 qtc 393 EKG 2: I personally reviewed and interpreted this EKG as follows: EKG interpretation date: 05/18/23 EKG interpretation time: 18:36 Interpretation: nsr hr [address] or t wave abnormalities qrs 84 qtc 399 Discharge Plan Discharge Patient Disposition: Home Clinical Impression: Chest pain Qualifiers: Chest pain type: unspecified Qualified Code(s): R07.9 - Chest pain, unspecified Condition: Stable Prescriptions: New Protonix 40 mg tablet,delayed release (DR/EC) 40 mg PO DAILY Qty: 60 0RF No Action (DME) blood-glucose meter [Blood Glucose Monitoring] Kit See Rx Instructions .ROUTE .MEDSUPPLY Qty: 1 0RF Rx Instructions: check blood sugar daily as directed (DME) Blood Glucose Test Strip See Rx Instructions .ROUTE .MEDSUPPLY Qty: 100 3RF Rx Instructions: check blood sugar (DME) lancets [BD Ultra Fine Lancets] 33 gauge misc See Rx Instructions .ROUTE .MEDSUPPLY Qty: 100 3RF Rx Instructions: check blood sugar daily as directed Spiriva with HandiHaler 18 mcg capsule, w/inhalation device 1 cap INHALATION DAILY@07 Qty: 90 2RF Rx Instructions: puncture 1 cap using device; one dose = 2 inhalations rosuvastatin 20 mg tablet 20 mg PO DAILY polyethylene glycol 3350 [Miralax] 17 gram/dose powder 17 g PO DAILY PRN (Reason: Constipation) nitroglycerin [Nitrostat] 0.4 mg tablet, sublingual 0.4 mg SUBLINGUAL Q5M PRN (Reason: Chest Pain) Qty: 25 3RF fluticasone propion-salmeterol [Advair Diskus] 500-50 mcg/dose blister with device 1 inh inhalation BID Qty: 60 3RF fluticasone propionate 50 mcg/actuation spray,suspension 2 spray intranasal DAILY 360 Days Qty: 16 11RF Rx Instructions: administer into each nostril azelastine 137 mcg (0.1 %) aerosol,spray 1 spray intranasal BID PRN (Reason: Allergy Symptoms) Rx Instructions: administer into each nostril fluoxetine 20 mg/5 mL (4 mg/mL) solution 60 mg PO DAILY@07 Qty: 450 3RF acyclovir 800 mg tablet 800 mg PO BID Qty: 10 1RF mupirocin 2 % ointment 1 applic topical TID 7 Days Qty: 22 1RF (DME) Diabetic shoes with 3 pairs of inserts See Rx Instructions .Route .MEDSUPPLY Qty: 1 0RF Rx Instructions: As directed (DME) pen needle, diabetic 32 gauge x 5/32 needle See Rx Instructions .Route Qty: 100 3RF Rx Instructions: As directed (DME) OneTouch Ultra Test Strip See Rx Instructions .ROUTE .COMPLEX Qty: 50 0RF Dose Instruction: USE 1 STRIP TO CHECK GLUCOSE ONCE DAILY DIRECTED . APPOINTMENT REQUIRED FOR FUTURE REFILLS Rx Instructions: USE 1 STRIP TO CHECK GLUCOSE ONCE DAILY DIRECTED . APPOINTMENT REQUIRED FOR FUTURE REFILLS Victoza 3-Rahul 0.6 mg/0.1 mL (18 mg/3 mL) pen injector See Rx Instructions SUBCUT DAILY 90 Days Qty: 27 3RF Rx Instructions: subcutaneously daily; 0.6mg daily for 1 week, 1.2 daily for 1 week and then 1.8mg daily aspirin 81 mg Tablet,Delayed Release (Dr/Ec) 81 mg PO DAILY omeprazole 20 mg capsule,delayed release(DR/EC) 20 mg PO DAILY Qty: 90 0RF Hold Instructions: Resume on 10/31/21. albuterol sulfate 2.5 mg /3 mL (0.083 %) solution for nebulization 2.5 mg inhalation QID PRN (Reason: shortness of breath or wheezing) Qty: 180 2RF albuterol sulfate 90 mcg/actuation HFA aerosol inhaler 2 puff inhalation Q6H PRN (Reason: shortness of breath or wheezing) Qty: 16 0RF celecoxib [Celebrex] 100 mg capsule 100 mg PO BID PRN (Reason: pain) Qty: 30 0RF methocarbamol 750 mg tablet 750 mg PO Q8H PRN (Reason: muscle spasms and pain) Qty: 20 0RF metformin 500 mg tablet 1,000 mg PO BID oxybutynin chloride 10 mg tablet extended release 24hr 10 mg PO DAILY dicyclomine 10 mg capsule 10 mg PO BID PRN (Reason: abdominal pain) Qty: 20 0RF ondansetron 4 mg tablet,disintegrating 4 mg PO Q8H PRN (Reason: nausea and vomiting) Qty: 15 0RF ibuprofen 800 mg tablet 800 mg PO TID PRN (Reason: pain) Qty: 60 0RF acetaminophen 325 mg capsule 325 mg PO Q4H PRN (Reason: fever or pain) Qty: 60 0RF Discharge Orders: Discharge ED (Routine); Ordered 05/18/23 Ordered By: Darrell Anand Referrals: Suzette Bowman FNP [Primary Care Provider] - 1-3 days Discharge Diet: Advance as tolerated Discharge Activity: Resume usual activity Patient Instructions: Chest Pain (ED) Coding Level of Care Code ED Probation Counselor for Toni Ramírez
[2023-05-18 17:29] LABS: Basophils # 0.1 10^3/uL (0.0-0.1); Basophils % 0.8 %; Eosinophils # 0.3 10^3/uL (0.0-0.8); Eosinophils % 3.7 %; Hematocrit 43.1 % (36-47); Lymphocytes # 2.5 10^3/uL (0.8-4.8); Lymphocytes % 27.9 %; Mean Corpuscular HGB Conc 32.3 g/dL (30-55); Mean Corpuscular Hemoglobin 28.7 pg (27-33); Mean Corpuscular Volume 88.9 fl (85-98); Mean Platelet Volume 10.1 fL (7.4-10.4); Monocytes # 0.7 10^3/uL (0.2-0.9); Neutrophils # 5.28 10^3/uL (1.8-7.7); Neutrophils % 59.3 %; Nucleated Red Blood Cells % 0 %; Platelet Count 267 10^3/cmm (157-399); Red Blood Count 4.85 10^6/uL (3.85-5.65); White Blood Count 8.91 10^3/uL (3.29-11.43)
[2023-05-18 17:33] VITALS: BP 121/79; PULSE 84; RESP 26; O2SAT 99
[2023-05-18 17:46] LABS: INR 1.01 (0.8-1.2)
[2023-05-18 17:51] LABS: Alanine Aminotransferase 15 U/L (0-33); Albumin Level 4.1 g/dL (3.5-5.2); Alkaline Phosphatase 111 U/L (35-105); Anion Gap 14.4 (5-19); Aspartate Amino Transferase 17 U/L (0-32); Blood Urea Nitrogen 8 mg/dL (6-20); Calcium 8.9 mg/dL (8.5-10.5); Carbon Dioxide 26 mmol/L (22-29); Chloride 105 mmol/L (98-107); Globulin 2.8 g/dL (1.3-4.6); Glomerular Filtration Rate 88.2 mL/min (90-130); Glucose 82 mg/dL (65-115); Osmolality Calculated 291 mOsm/kg (285-295); Potassium 3.4 mmol/L (3.5-5.1); Sodium 142 mmol/L (136-145); Total Bilirubin 0.3 mg/dL (0.15-1.2); Total Protein 6.9 g/dL (6.6-8.7)
[2023-05-18 17:56] LABS: Troponin(5th) Baseline < 6 ng/L (0-10)
--- NOTE | 2023-05-18 18:41 | ECG_ITS ---
[facility] Test Date: 2023-05-18 Pat Name: Gale Veloz Department: Room: Gender: Female Information Security Specialist: : 1970 Requested By: Darrell Anand Order Number: [id number] Sohail MD: Mckenzie Argueta M.D. Measurements Intervals [place] Rate: 79 P: 62 NH: 192 QRS: 46 QRSD: 84 T: 53 QT: 364 QTc: 420 Interpretive Statements SINUS RHYTHM LOW QRS VOLTAGE IN PRECORDIAL LEADS [QRS DEFLECTION < 1.0 mV IN CHEST LEADS] MODERATE T-WAVE ABNORMALITY, CONSIDER ANTERIOR ISCHEMIA [-0.1+ mV T-WAVE IN V3/V4] Compared to ECG 05/18/2023 16:39:12 Possible ischemia now present T-wave abnormality still present Electronically Signed On 05-18-2023 22:24:41 NATURAL RESOURCES SPECIALIST by Mckenzie Argueta M.D. [id number]
[2023-05-18 18:51] VITALS: RESP 18; O2SAT 96
[2023-05-18] MEDS: morphine 4 mg/mL SDV 1 mL IVP (18:51)
[2023-05-18] MEDS: ondansetron 2 mg/ML SDV 2 mL 4 MG IVP (18:51)
[2023-05-18 19:35] LABS: Troponin 5 2HR Delta 0.00001 ABS# (0-10)
[2023-05-18 20:33] VITALS: RESP 18; O2SAT 96
== END 2023-05-18 21:51 | disposition home or self-care (01) ==
PROVIDERS: Emergency Provider Emergency Medicine; PCP Nurse Practitioner Family
DX: R07.9 Chest pain, unspecified (principal); Z79.82 Long term (current) use of aspirin; Z79.84 Long term (current) use of oral hypoglycemic drugs; J44.9 Chronic obstructive pulmonary disease, unspecified; Z86.73 Personal history of transient ischemic attack (TIA), and cerebral infarction without residual deficits; E11.9 Type 2 diabetes mellitus without complications
CPT/HCPCS: 36415; 71045; 80053; 84484; 85025; 85610; 93005; 96374; 96375; 99285; J2270; J2405

== ENCOUNTER → 2023-06-25 10:35 | Outpatient (BNVA) | payer MEDICAID, SELFPAY ==
[2023-05-17 08:20] VITALS: BP 146/91; BMI 35.5
== END ==
PROVIDERS: PCP Nurse Practitioner Family; Visit Provider Internal Medicine Cardiovascular Disease
DX: E11.9 Type 2 diabetes mellitus without complications (principal); Z79.84 Long term (current) use of oral hypoglycemic drugs; E66.9 Obesity, unspecified; Z68.32 Body mass index [BMI] 32.0-32.9, adult; E78.5 Hyperlipidemia, unspecified; G47.33 Obstructive sleep apnea (adult) (pediatric); J45.909 Unspecified asthma, uncomplicated
CPT/HCPCS: 99213

== ENCOUNTER → 2023-07-14 13:14 | Outpatient (BNVA) | payer MEDICAID, SELFPAY ==
[2023-07-14 08:58] VITALS: BP 146/91; BMI 35.5
== END ==
PROVIDERS: PCP Nurse Practitioner Family; Visit Provider Family Medicine
DX: R05.9 Cough, unspecified (principal); R50.9 Fever, unspecified; J10.1 Influenza due to other identified influenza virus with other respiratory manifestations; U07.1 COVID-19
CPT/HCPCS: 87400; 87426

== ENCOUNTER → 2023-09-14 08:57 | Outpatient (BNVA) | payer MEDICAID, SELFPAY ==
[2023-08-24 13:37] VITALS: BP 137/93; BMI 33.9
== END ==
PROVIDERS: PCP Nurse Practitioner Family; Visit Provider Nurse Practitioner Family
DX: R05.9 Cough, unspecified (principal); J01.00 Acute maxillary sinusitis, unspecified
CPT/HCPCS: 87400; 87426

== ENCOUNTER → 2023-09-24 11:52 | Outpatient (BNVA) | payer MEDICAID, SELFPAY ==
[2023-08-24 13:37] VITALS: BP 137/93; BMI 33.9
== END ==
PROVIDERS: PCP Nurse Practitioner Family; Visit Provider Internal Medicine
DX: E11.9 Type 2 diabetes mellitus without complications (principal)
CPT/HCPCS: 80053; 80061; 82043; 83036

== ENCOUNTER → 2023-10-01 11:19 | Outpatient (BNVA) | payer MEDICAID, SELFPAY ==
[2023-08-24 13:37] VITALS: BP 137/93; BMI 33.9
== END ==
PROVIDERS: PCP Nurse Practitioner Family; Visit Provider Internal Medicine
DX: E11.9 Type 2 diabetes mellitus without complications (principal); E78.5 Hyperlipidemia, unspecified; E55.9 Vitamin D deficiency, unspecified; E66.9 Obesity, unspecified; M79.10 Myalgia, unspecified site; Z79.84 Long term (current) use of oral hypoglycemic drugs; Z68.34 Body mass index [BMI] 34.0-34.9, adult; Z79.85 Long-term (current) use of injectable non-insulin antidiabetic drugs
CPT/HCPCS: 99214

== ENCOUNTER 2023-10-27 15:31 | Emergency (ER) | payer MEDICAID, SELFPAY ==
[2023-08-24 13:37] VITALS: BP 137/93; BMI 33.9
[2023-10-27 15:35] VITALS: BP 151/103; PULSE 85; RESP 16; TEMP 36.7; O2SAT 96
--- NOTE | 2023-10-27 15:44 | CTR_ITS ---
PROCEDURE INFORMATION: Exam: CT Head Without Contrast Exam date and time: 10/27/2023 4:08 PM Age: 52 years old Clinical indication: Pain; Headache TECHNIQUE: Imaging protocol: Computed tomography of the head without contrast. Radiation optimization: All CT scans at this facility use at least one of these dose optimization techniques: automated exposure control; mA and/or kV adjustment per patient size (includes targeted exams where dose is matched to clinical indication); or iterative reconstruction. COMPARISON: CT head thrombolytic [id number] 07/31/2022 8:41 PM RADIATION DOSE METRICS: Total DLP (mGy-cm): 985 FINDINGS: Brain: No acute intracranial hemorrhage, cerebral edema, or midline shift. Cerebral ventricles: No hydrocephalus. Paranasal sinuses: There is no acute sinusitis. Mastoid air cells: Visualized mastoid air cells are well aerated. Orbital cavities: The visualized orbits appear unremarkable. Bones: Unremarkable. No acute fracture. Soft tissues: Unremarkable. CT/CT head wo con* [id number] IMPRESSION: No acute intracranial abnormality.
--- NOTE | 2023-10-27 15:44 | XRR_ITS ---
PROCEDURE INFORMATION: Exam: XR Chest Exam date and time: 10/27/2023 3:58 PM Age: 52 years old Clinical indication: Cough and dyspnea; Additional info: Dyspnea/cough TECHNIQUE: Imaging protocol: Radiologic exam of the chest. Views: 1 view. COMPARISON: CR XR chest 1V portable [id number] 05/18/2023 4:59 PM FINDINGS: Lungs: Unremarkable. No consolidation. Pleural spaces: No pleural effusion. No pneumothorax. Heart/Mediastinum: No significant cardiac silhouette enlargement. Bones/joints: Unremarkable. XR/XR chest 1V portable [id number] IMPRESSION: No acute findings.
--- NOTE | 2023-10-27 15:45 | ECG_ITS ---
[facility] Test Date: 2023-10-27 Pat Name: Gale Veloz Department: Room: Gender: Female Installer Technician: : 1970 Requested By: Sonny Silva Order Number: [id number] Sohail MD: Frank Carson M.D. Measurements Intervals [place] Rate: 84 P: 70 W[place]: 186 QRS: 58 QRSD: 83 T: 66 QT: 357 QTc: 423 Interpretive Statements SINUS RHYTHM LOW QRS VOLTAGE IN PRECORDIAL LEADS [QRS DEFLECTION < 1.0 mV IN CHEST LEADS] NONSPECIFIC T-WAVE ABNORMALITY Compared to ECG 05/18/2023 18:36:57 Possible ischemia no longer present T-wave abnormality still present Electronically Signed On 10-27-2023 16:44:34 CDT by Frank Carson M.D. [id number]
--- NOTE | 2023-10-27 15:45 | W.ED.NEUROSD ---
Documented by User: Sonny Torres DO 10/29/23 09:00 HPI - Neuro Symptoms/Deficit General: Chief Complaint: Neuro Symptoms/Deficit Stated Complaint: headache, right side numb Time Seen by Provider: 10/27/23 15:43 Source: patient Mode of arrival: ambulatory History of Present Illness: 52-year-old female who presents to the emergency room complaining of generally not feeling well for the last 2 days. She had stomach upset nausea. She also had a headache that seem to have worsened progressively. This afternoon she states her right arm felt numb at times. She has no other symptoms. She denies chest pain or shortness of breath no head trauma. Onset (ago): day(s) (2) Location: left arm History of same: No Severity: mild Quality: weak Relieving factors: none Associated symptoms: Reports nausea; Deny chest pain, cough, diaphoresis, fevers/chills, headache(s), anorexia, malaise, seizures, short of breath, syncope, tingling, vertigo, vomiting or weakness Review of Systems Const: Denies: malaise or diaphoresis Card: Denies: chest pain or syncope Resp: Denies: dyspnea GI: Reports: nausea; Denies: vomiting : Denies: dysuria, urinary frequency or urinary urgency Musc: Denies: neck pain or back pain Skin/Breast: Denies: rash Neuro: Denies: headache(s) or vertigo [facility] PFSH: Medical History GERD (gastroesophageal reflux disease) Diabetes mellitus, controlled Psychiatric care YAIR (obstructive sleep apnea) Major depressive disorder, recurrent, moderate Depression COPD (chronic obstructive pulmonary disease) CVA (cerebral vascular accident) Surgical History History of anterior colporrhaphy (~02/16/23) Anterior colporrhaphy augmented with allograft, single incision mid urethral sling, cystoscopy. Performed by [facility]. History of colonoscopy History of tubal ligation Hx of oophorectomy H/O laparoscopy H/O: hysterectomy History of cholecystectomy Family History Father CAD (coronary artery disease) Cancer Diabetes Hyperlipidemia Mother Hypertension Psychiatric illness Brother Hypertension Social History Smoking and tobacco/nicotine status: never used tobacco/nicotine Second hand smoke exposure: Yes Alcohol intake: current Alcohol intake frequency: holidays/special occasions only Alcohol type: other Substance/Drug Use: never Adopted: No Caregiver/support person: No Lives independently: Yes Household members: friend(s) and none Housing: Apartment Marital status: Number of children: 3 Number of grandchildren: 7 Highest education level completed: High School Graduate service: No Current occupational status: employed Current occupation: [employer] Current occupational exposures/hazards: No Pets and animals: Yes (4 tiny dogs) Pets & animals: dog(s) Leisure activites: art and other Leisure activities details: watch TV Sexually active: No Do you think of yourself as: Straight/Heterosexual Current gender identity: Female Merced/Anglican: Holiness Special merced needs: No Agree to transfusion: No (Jehova's Witness) Female Reproductive History: Para: 3 Spontaneous abortions: Yes (X 3) NIH stroke score NIHSS: Level Of Consciousness - 1a: 0 Level Of Consciousness Questions - 1b: Both Correct Level Of Consciousness Commands - 1c: Both Correct Best Gaze - 2: Normal Visual Mclean - 3: No Visual Loss Facial Palsy - 4: Normal Motor Arm Right - 5: No Drift Motor Arm Left - 5: No Drift Motor Leg Right - 6: No Drift Motor Leg Left - 6: No Drift Limb Ataxia - 7: Absent Sensory - 8: Normal Best Language - 9: No Aphasia Dysarthia - 10: Normal Extinction And Inattention - 11: 0 Score: Total Score: 0 Physical Exam Const: COMMON NORMALS: no acute distress GENERAL APPEARANCE: cooperative and comfortable ORIENTATION/CONSCIOUSNESS: Yes awake, Yes oriented to person, Yes oriented to place and Yes oriented to time HENMT: COMMON NORMALS: normocephalic, atraumatic and hearing grossly normal bilaterally HEAD & SCALP: normocephalic and atraumatic Resp: COMMON NORMALS: normal respiratory effort, No retractions, No use of accessory muscles and clear to auscultation bilaterally AUSCULTATION: clear to auscultation bilaterally Cardio: COMMON NORMALS: regular rate, regular rhythm and No murmurs present (Cardio) RATE: regular rate RHYTHM: regular rhythm GI: COMMON NORMALS: Soft to palpation and No hepatosplenomegaly present AUSCULTATION: Yes normoactive bowel sounds PALPATION: Yes Soft to palpation, No Tenderness to palpation present (GI), No Guarding due to palpation present (GI) and Yes No hepatosplenomegaly present Extremity: COMMON NORMALS: normal to inspection, capillary refill normal, no clubbing, cyanosis or edema, no calf tenderness and no pedal edema Neuro: SENSORIUM/ORIENTATION: Yes oriented to person, Yes oriented to place and Yes oriented to time Skin: COMMON NORMALS: no rashes or lesions noted GENERAL SKIN EXAM: no rashes or lesions noted Course Vital Signs: Vital signs: Vital Signs Temperature 98.0 F 10/27/23 20:18 Pulse Rate 90 10/27/23 20:18 Respiratory Rate 16 10/27/23 20:18 Blood Pressure 117/70 10/27/23 20:18 Pulse Oximetry 96 10/27/23 20:18 Oxygen Delivery Me thod Room Air 10/27/23 19:23 MDM - Neuro Symptoms/Deficit Medical Decision Making Was asked by staff immediately after she arrived from triage to evaluate. NIH score is 0 while she reports numbness in the right hand she is no ataxia i had no sensation loss good facial symmetry speech and word finding normal no visual field cuts. Workup proceeded. Care signed out to Dr. Castaneda at change of shift. See final notes for diagnosis and disposition. Assessment and plan: Viral illness - Discharged home - Evaluation and treatment of this problem were appropriate in the emergency setting. Medical Records I reviewed the patient's medical records. Lab Data I reviewed the patient's lab results. 10/27/23 16:27 10/27/23 16:27 Radiology Impressions Chest X-Ray 10/27/23 15:44 IMPRESSION: No acute findings. Head CT 10/27/23 15:44 IMPRESSION: No acute intracranial abnormality. Laboratory Results WBC 8.65 10^3/uL (3.29-11.43) 10/27/23 16: RBC 4.99 10^6/uL (3.85-5.65) 10/27/23 16: Hgb 14.70 g/dL (11.27-16.99) 10/27/23 16: Hct 43.5 % (36-47) 10/27/23 16: MCV 87.2 fl (85-98) 10/27/23 16: MCH 29.5 pg (27-33) 10/27/23 16: MCHC 33.8 g/dL (30-55) 10/27/23 16: RDW 13.1 % (12.1-15.1) 10/27/23 16: Plt Count 259 10^3/cmm (157-399) 10/27/23 16: MPV 10.2 fL (7.4-10.4) 10/27/23 16: Neut % (Auto) 62.5 % 10/27/23 16: Lymph % (Auto) 25.7 % 10/27/23 16: [place] % (Auto) 8.1 % 10/27/23 16: Eos % (Auto) 2.8 % 10/27/23 16: Baso % (Auto) 0.6 % 10/27/23 16: Neut # (Auto) 5.41 10^3/uL (1.8-7.7) 10/27/23 16: Lymph # (Auto) 2.2 10^3/uL (0.8-4.8) 10/27/23 16: [place] # (Auto) 0.7 10^3/uL (0.2-0.9) 10/27/23 16: Eos # (Auto) 0.2 10^3/uL (0.0-0.8) 10/27/23 16: Baso # (Auto) 0.1 10^3/uL (0.0-0.1) 10/27/23 16: Nucleated RBC % (auto) 0 % 10/27/23 16: Nucleated RBCs # 0.0 /100WBC 10/27/23 16: Sodium 142 mmol/L (136-145) 10/27/23 16: Potassium 3.7 mmol/L (3.5-5.1) 10/27/23 16: Chloride 106 mmol/L (98-107) 10/27/23 16: Carbon Dioxide 28 mmol/L (22-29) 10/27/23 16: Anion Gap 11.7 (5-19) 10/27/23 16:27 BUN 9 mg/dL (6-20) 10/27/23 16: Creatinine 0.7 mg/dL (0.5-0.9) 10/27/23 16:27 GFR Calculation 88.2 mL/min (90-130) L 10/27/23 16:27 Glucose 95 mg/dL (65-115) 10/27/23 16:27 Calculated Osmolality 292 mOsm/kg (285-295) 10/27/23 16:27 Calcium 8.8 mg/dL (8.5-10.5) 10/27/23 16:27 Total Bilirubin 0.4 mg/dL (0.15-1.2) 10/27/23 16: AST 23 U/L (0-32) 10/27/23 16: ALT 25 U/L (0-33) 10/27/23 16:27 Alkaline Phosphatase 106 U/L (35-105) H 10/27/23 16:27 Total Protein 7.6 g/dL (6.6-8.7) 10/27/23 16: Albumin 4.1 g/dL (3.5-5.2) 10/27/23 16:27 Globulin 3.5 g/dL (1.3-4.6) 10/27/23 16:27 Urine Color Yellow (Yellow) 10/27/23 16:45 Urine Appearance Clear (CLEAR) 10/27/23 16:45 Urine pH 5 (5-7) 10/27/23 16:45 Ur Specific [place] 1.020 (1.005-1.030) 10/27/23 16:45 Urine Protein Neg (Negative) 10/27/23 16:45 Urine Glucose (UA) Norm (Normal) 10/27/23 16:45 Urine Ketones Negative (Negative) 10/27/23 16:45 Urine Blood Neg (Negative) 10/27/23 16:45 Urine Nitrate Negative (Negative) 10/27/23 16:45 Urine Bilirubin Neg (Negative) 10/27/23 16:45 Urine Urobilinogen Norm mg/dL (Negative) 10/27/23 16:45 Ur Leukocyte Esterase Negative (Negative) 10/27/23 16:45 Discharge Plan Discharge Patient Disposition: Home Clinical Impression: Nonspecific syndrome suggestive of viral illness Headache Qualifiers: Headache type: unspecified Headache chronicity pattern: acute headache Intractability: not intractable Qualified Code(s): R51.9 - Headache, unspecified Condition: Stable Prescriptions: New doxycycline hyclate 100 mg capsule 100 mg PO BID 7 Days Qty: 14 0RF ondansetron 8 mg tablet,disintegrating 8 mg PO .q6 PRN (Reason: nausea and vomiting) Qty: 14 0RF No Action (DME) blood-glucose meter [Blood Glucose Monitoring] Kit See Rx Instructions .ROUTE .MEDSUPPLY Qty: 1 0RF Rx Instructions: check blood sugar daily as directed (DME) Blood Glucose Test Strip See Rx Instructions .ROUTE .MEDSUPPLY Qty: 100 3RF Rx Instructions: check blood sugar (DME) lancets [BD Ultra Fine Lancets] 33 gauge misc See Rx Instructions .ROUTE .MEDSUPPLY Qty: 100 3RF Rx Instructions: check blood sugar daily as directed Spiriva with HandiHaler 18 mcg capsule, w/inhalation device 1 cap INHALATION DAILY@07 Qty: 90 2RF Rx Instructions: puncture 1 cap using device; one dose = 2 inhalations rosuvastatin 20 mg tablet 20 mg PO DAILY polyethylene glycol 3350 [Miralax] 17 gram/dose powder 17 g PO DAILY PRN (Reason: Constipation) nitroglycerin [Nitrostat] 0.4 mg tablet, sublingual 0.4 mg SUBLINGUAL Q5M PRN (Reason: Chest Pain) Qty: 25 3RF fluticasone propion-salmeterol [Advair Diskus] 500-50 mcg/dose blister with device 1 inh inhalation BID Qty: 60 3RF fluticasone propionate 50 mcg/actuation spray,suspension 2 spray intranasal DAILY 360 Days Qty: 16 11RF Rx Instructions: administer into each nostril Victoza 3-Rahul 0.6 mg/0.1 mL (18 mg/3 mL) pen injector See Rx Instructions SUBCUT DAILY 90 Days Qty: 27 3RF Rx Instructions: subcutaneously daily; 0.6mg daily for 1 week, 1.2 daily for 1 week and then 1.8mg daily albuterol sulfate 2.5 mg /3 mL (0.083 %) solution for nebulization 2.5 mg inhalation QID PRN (Reason: shortness of breath or wheezing) Qty: 180 2RF promethazine-DM 6.25-15 mg/5 mL syrup 5 ml PO Q6H PRN (Reason: cough) Qty: 160 0RF oseltamivir [Tamiflu] 75 mg capsule 75 mg PO BID 5 Days Qty: 10 0RF albuterol sulfate 90 mcg/actuation HFA aerosol inhaler 2 puff inhalation Q6H PRN (Reason: shortness of breath or wheezing) Qty: 16 0RF azelastine 137 mcg (0.1 %) aerosol,spray 1 spray intranasal BID PRN (Reason: Allergy Symptoms) Rx Instructions: administer into each nostril mupirocin 2 % ointment 1 applic topical TID 7 Days Qty: 22 1RF (DME) Diabetic shoes with 3 pairs of inserts See Rx Instructions .Route .MEDSUPPLY Qty: 1 0RF Rx Instructions: As directed fluoxetine 20 mg/5 mL (4 mg/mL) solution 80 mg PO .q am Qty: 600 2RF Rx Instructions: Take 80 mg daily (20 ml) once daily every morning cefdinir 250 mg/5 mL suspension for reconstitution 300 mg PO BID 10 Days Qty: 120 0RF (DME) pen needle, diabetic 32 gauge x 5/32 needle See Rx Instructions .Route Qty: 100 3RF Rx Instructions: As directed (DME) OneTouch Ultra Test Strip See Rx Instructions .ROUTE .COMPLEX Qty: 50 0RF Dose Instruction: USE 1 STRIP TO CHECK GLUCOSE ONCE DAILY DIRECTED . APPOINTMENT REQUIRED FOR FUTURE REFILLS Rx Instructions: USE 1 STRIP TO CHECK GLUCOSE ONCE DAILY DIRECTED . APPOINTMENT REQUIRED FOR FUTURE REFILLS acyclovir 800 mg tablet See Rx Instructions .ROUTE .COMPLEX Qty: 10 0RF Dose Instruction: TAKE 1 TABLET BY MOUTH TWICE DAILY FOR HERPES Rx Instructions: TAKE 1 TABLET BY MOUTH TWICE DAILY FOR HERPES aspirin 81 mg Tablet,Delayed Release (Dr/Ec) 81 mg PO DAILY omeprazole 20 mg capsule,delayed release(DR/EC) 20 mg PO DAILY Qty: 90 0RF Hold Instructions: Resume on 10/31/21. celecoxib [Celebrex] 100 mg capsule 100 mg PO BID PRN (Reason: pain) Qty: 30 0RF methocarbamol 750 mg tablet 750 mg PO Q8H PRN (Reason: muscle spasms and pain) Qty: 20 0RF metformin 500 mg tablet 1,000 mg PO BID oxybutynin chloride 10 mg tablet extended release 24hr 10 mg PO DAILY dicyclomine 10 mg capsule 10 mg PO BID PRN (Reason: abdominal pain) Qty: 20 0RF ondansetron 4 mg tablet,disintegrating 4 mg PO Q8H PRN (Reason: nausea and vomiting) Qty: 15 0RF ibuprofen 800 mg tablet 800 mg PO TID PRN (Reason: pain) Qty: 60 0RF acetaminophen 325 mg capsule 325 mg PO Q4H PRN (Reason: fever or pain) Qty: 60 0RF Protonix 40 mg tablet,delayed release (DR/EC) 40 mg PO DAILY Qty: 60 0RF Discharge Orders: Discharge ED (Routine); Ordered 10/27/23 Ordered By: Carmela Castaneda Referrals: Suzette Bowman FNP [Primary Care Provider] - Discharge Diet: Usual diet Discharge Activity: Increase activity as tolerated Patient Instructions: General Headache (ED), Viral Syndrome - Adult Activity Restrictions/Additional Instructions: Thank you for choosing [facility] for your healthcare needs today. Please realize this is an emergency room and that we are providing you with a medical screening exam and this may not be complete and all inclusive of all the testing and or work up that you may need to determine your ailment or severity of your illness. You have been screened and evaluated and felt safe for discharge. Health conditions do change or evolve sometimes and as such it is important that you follow up with your Primary Doctor to be re checked, 3-5 days is a general good time frame for follow up. 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 Fwd Documented by User: Carmela Castaneda MD 10/27/23 18:48 HPI - Neuro Symptoms/Deficit General: Chief Complaint: Neuro Symptoms/Deficit Stated Complaint: headache, right side numb Time Seen by Provider: 10/27/23 15:43 PFSH ED PFSH: Medical History GERD (gastroesophageal reflux disease) Diabetes mellitus, controlled Psychiatric care YAIR (obstructive sleep apnea) Major depressive disorder, recurrent, moderate Depression COPD (chronic obstructive pulmonary disease) CVA (cerebral vascular accident) Surgical History History of anterior colporrhaphy (~02/16/23) Anterior colporrhaphy augmented with allograft, single incision mid urethral sling, cystoscopy. Performed by [facility]. History of colonoscopy History of tubal ligation Hx of oophorectomy H/O laparoscopy H/O: hysterectomy History of cholecystectomy Family History Father CAD (coronary artery disease) Cancer Diabetes Hyperlipidemia Mother Hypertension Psychiatric illness Brother Hypertension Social History Smoking and tobacco/nicotine status: never used tobacco/nicotine Second hand smoke exposure: Yes Alcohol intake: current Alcohol intake frequency: holidays/special occasions only Alcohol type: other Substance/Drug Use: never Adopted: No Caregiver/support person: No Lives independently: Yes Household members: friend(s) and none Housing: Apartment Marital status: Number of children: 3 Number of grandchildren: 7 Highest education level completed: High School Graduate service: No Current occupational status: employed Current occupation: [employer] Current occupational exposures/hazards: No Pets and animals: Yes (4 tiny dogs) Pets & animals: dog(s) Leisure activites: art and other Leisure activities details: watch TV Sexually active: No Do you think of yourself as: Straight/Heterosexual Current gender identity: Female Merced/Anglican: Holiness Special merced needs: No Agree to transfusion: No (Jehova's Witness) NIH stroke score Score: Total Score: 0 Course Vital Signs: Vital signs: Vital Signs Temperature 98.0 F 10/27/23 20:18 Pulse Rate 90 10/27/23 20:18 Respiratory Rate 16 10/27/23 20:18 Blood Pressure 117/70 10/27/23 20:18 Pulse Oximetry 96 10/27/23 20:18 Oxygen Delivery Me thod Room Air 10/27/23 19:23 MDM - Neuro Symptoms/Deficit Medical Decision Making Was asked by staff immediately after she arrived from triage to evaluate. NIH score is 0 while she reports numbness in the right hand she is no ataxia i had no sensation loss good facial symmetry speech and word finding normal no visual field cuts. Workup proceeded. Assessment and plan: Viral illness - Discharged home - Evaluation and treatment of this problem were appropriate in the emergency setting. Lab Data 10/27/23 16:27 10/27/23 16:27 Radiology Impressions Chest X-Ray 10/27/23 15:44 IMPRESSION: No acute findings. Head CT 10/27/23 15:44 IMPRESSION: No acute intracranial abnormality. Laboratory Results WBC 8.65 10^3/uL (3.29-11.43) 10/27/23 16: RBC 4.99 10^6/uL (3.85-5.65) 10/27/23 16: Hgb 14.70 g/dL (11.27-16.99) 10/27/23 16: Hct 43.5 % (36-47) 10/27/23 16: MCV 87.2 fl (85-98) 10/27/23 16: MCH 29.5 pg (27-33) 10/27/23 16: MCHC 33.8 g/dL (30-55) 10/27/23 16: RDW 13.1 % (12.1-15.1) 10/27/23 16: Plt Count 259 10^3/cmm (157-399) 10/27/23 16: MPV 10.2 fL (7.4-10.4) 10/27/23 16: Neut % (Auto) 62.5 % 10/27/23 16:27 Lymph % (Auto) 25.7 % 10/27/23 16: [place] % (Auto) 8.1 % 10/27/23 16: Eos % (Auto) 2.8 % 10/27/23 16: Baso % (Auto) 0.6 % 10/27/23 16: Neut # (Auto) 5.41 10^3/uL (1.8-7.7) 10/27/23 16: Lymph # (Auto) 2.2 10^3/uL (0.8-4.8) 10/27/23 16:27 [place] # (Auto) 0.7 10^3/uL (0.2-0.9) 10/27/23 16:27 Eos # (Auto) 0.2 10^3/uL (0.0-0.8) 10/27/23 16:27 Baso # (Auto) 0.1 10^3/uL (0.0-0.1) 10/27/23 16: Nucleated RBC % (auto) 0 % 10/27/23 16: Nucleated RBCs # 0.0 /100WBC 10/27/23 16:27 Sodium 142 mmol/L (136-145) 10/27/23 16:27 Potassium 3.7 mmol/L (3.5-5.1) 10/27/23 16: Chloride 106 mmol/L (98-107) 10/27/23 16: Carbon Dioxide 28 mmol/L (22-29) 10/27/23 16:27 Anion Gap 11.7 (5-19) 10/27/23 16:27 BUN 9 mg/dL (6-20) 10/27/23 16:27 Creatinine 0.7 mg/dL (0.5-0.9) 10/27/23 16:27 GFR Calculation 88.2 mL/min (90-130) L 10/27/23 16:27 Glucose 95 mg/dL (65-115) 10/27/23 16: Calculated Osmolality 292 mOsm/kg (285-295) 10/27/23 16: Calcium 8.8 mg/dL (8.5-10.5) 10/27/23 16:27 Total Bilirubin 0.4 mg/dL (0.15-1.2) 10/27/23 16:27 AST 23 U/L (0-32) 10/27/23 16:27 ALT 25 U/L (0-33) 10/27/23 16:27 Alkaline Phosphatase 106 U/L (35-105) H 10/27/23 16:27 Total Protein 7.6 g/dL (6.6-8.7) 10/27/23 16:27 Albumin 4.1 g/dL (3.5-5.2) 10/27/23 16:27 Globulin 3.5 g/dL (1.3-4.6) 10/27/23 16:27 Urine Color Yellow (Yellow) 10/27/23 16:45 Urine Appearance Clear (CLEAR) 10/27/23 16:45 Urine pH 5 (5-7) 10/27/23 16:45 Ur Specific [place] 1.020 (1.005-1.030) 10/27/23 16:45 Urine Protein Neg (Negative) 10/27/23 16:45 Urine Glucose (UA) Norm (Normal) 10/27/23 16:45 Urine Ketones Negative (Negative) 10/27/23 16:45 Urine Blood Neg (Negative) 10/27/23 16:45 Urine Nitrate Negative (Negative) 10/27/23 16:45 Urine Bilirubin Neg (Negative) 10/27/23 16:45 Urine Urobilinogen Norm mg/dL (Negative) 10/27/23 16:45 Ur Leukocyte Esterase Negative (Negative) 10/27/23 16:45 All radiology interpretation(s) finalized by discharge Discharge Plan Discharge Patient Disposition: Home Clinical Impression: Nonspecific syndrome suggestive of viral illness Headache Qualifiers: Headache type: unspecified Headache chronicity pattern: acute headache Intractability: not intractable Qualified Code(s): R51.9 - Headache, unspecified Condition: Stable Prescriptions: New doxycycline hyclate 100 mg capsule 100 mg PO BID 7 Days Qty: 14 0RF ondansetron 8 mg tablet,disintegrating 8 mg PO .q6 PRN (Reason: nausea and vomiting) Qty: 14 0RF No Action (DME) blood-glucose meter [Blood Glucose Monitoring] Kit See Rx Instructions .ROUTE .MEDSUPPLY Qty: 1 0RF Rx Instructions: check blood sugar daily as directed (DME) Blood Glucose Test Strip See Rx Instructions .ROUTE .MEDSUPPLY Qty: 100 3RF Rx Instructions: check blood sugar (DME) lancets [BD Ultra Fine Lancets] 33 gauge misc See Rx Instructions .ROUTE .MEDSUPPLY Qty: 100 3RF Rx Instructions: check blood sugar daily as directed Spiriva with HandiHaler 18 mcg capsule, w/inhalation device 1 cap INHALATION DAILY@07 Qty: 90 2RF Rx Instructions: puncture 1 cap using device; one dose = 2 inhalations rosuvastatin 20 mg tablet 20 mg PO DAILY polyethylene glycol 3350 [Miralax] 17 gram/dose powder 17 g PO DAILY PRN (Reason: Constipation) nitroglycerin [Nitrostat] 0.4 mg tablet, sublingual 0.4 mg SUBLINGUAL Q5M PRN (Reason: Chest Pain) Qty: 25 3RF fluticasone propion-salmeterol [Advair Diskus] 500-50 mcg/dose blister with device 1 inh inhalation BID Qty: 60 3RF fluticasone propionate 50 mcg/actuation spray,suspension 2 spray intranasal DAILY 360 Days Qty: 16 11RF Rx Instructions: administer into each nostril Victoza 3-Rahul 0.6 mg/0.1 mL (18 mg/3 mL) pen injector See Rx Instructions SUBCUT DAILY 90 Days Qty: 27 3RF Rx Instructions: subcutaneously daily; 0.6mg daily for 1 week, 1.2 daily for 1 week and then 1.8mg daily albuterol sulfate 2.5 mg /3 mL (0.083 %) solution for nebulization 2.5 mg inhalation QID PRN (Reason: shortness of breath or wheezing) Qty: 180 2RF promethazine-DM 6.25-15 mg/5 mL syrup 5 ml PO Q6H PRN (Reason: cough) Qty: 160 0RF oseltamivir [Tamiflu] 75 mg capsule 75 mg PO BID 5 Days Qty: 10 0RF albuterol sulfate 90 mcg/actuation HFA aerosol inhaler 2 puff inhalation Q6H PRN (Reason: shortness of breath or wheezing) Qty: 16 0RF azelastine 137 mcg (0.1 %) aerosol,spray 1 spray intranasal BID PRN (Reason: Allergy Symptoms) Rx Instructions: administer into each nostril mupirocin 2 % ointment 1 applic topical TID 7 Days Qty: 22 1RF (DME) Diabetic shoes with 3 pairs of inserts See Rx Instructions .Route .MEDSUPPLY Qty: 1 0RF Rx Instructions: As directed fluoxetine 20 mg/5 mL (4 mg/mL) solution 80 mg PO .q am Qty: 600 2RF Rx Instructions: Take 80 mg daily (20 ml) once daily every morning cefdinir 250 mg/5 mL suspension for reconstitution 300 mg PO BID 10 Days Qty: 120 0RF (DME) pen needle, diabetic 32 gauge x 5/32 needle See Rx Instructions .Route Qty: 100 3RF Rx Instructions: As directed (DME) OneTouch Ultra Test Strip See Rx Instructions .ROUTE .COMPLEX Qty: 50 0RF Dose Instruction: USE 1 STRIP TO CHECK GLUCOSE ONCE DAILY DIRECTED . APPOINTMENT REQUIRED FOR FUTURE REFILLS Rx Instructions: USE 1 STRIP TO CHECK GLUCOSE ONCE DAILY DIRECTED . APPOINTMENT REQUIRED FOR FUTURE REFILLS acyclovir 800 mg tablet See Rx Instructions .ROUTE .COMPLEX Qty: 10 0RF Dose Instruction: TAKE 1 TABLET BY MOUTH TWICE DAILY FOR HERPES Rx Instructions: TAKE 1 TABLET BY MOUTH TWICE DAILY FOR HERPES aspirin 81 mg Tablet,Delayed Release (Dr/Ec) 81 mg PO DAILY omeprazole 20 mg capsule,delayed release(DR/EC) 20 mg PO DAILY Qty: 90 0RF Hold Instructions: Resume on 10/31/21. celecoxib [Celebrex] 100 mg capsule 100 mg PO BID PRN (Reason: pain) Qty: 30 0RF methocarbamol 750 mg tablet 750 mg PO Q8H PRN (Reason: muscle spasms and pain) Qty: 20 0RF metformin 500 mg tablet 1,000 mg PO BID oxybutynin chloride 10 mg tablet extended release 24hr 10 mg PO DAILY dicyclomine 10 mg capsule 10 mg PO BID PRN (Reason: abdominal pain) Qty: 20 0RF ondansetron 4 mg tablet,disintegrating 4 mg PO Q8H PRN (Reason: nausea and vomiting) Qty: 15 0RF ibuprofen 800 mg tablet 800 mg PO TID PRN (Reason: pain) Qty: 60 0RF acetaminophen 325 mg capsule 325 mg PO Q4H PRN (Reason: fever or pain) Qty: 60 0RF Protonix 40 mg tablet,delayed release (DR/EC) 40 mg PO DAILY Qty: 60 0RF Discharge Orders: Discharge ED (Routine); Ordered 10/27/23 Ordered By: Carmela Castaneda Referrals: Suzette Bowman FNP [Primary Care Provider] - Discharge Diet: Usual diet Discharge Activity: Increase activity as tolerated Patient Instructions: General Headache (ED), Viral Syndrome - Adult Activity Restrictions/Additional Instructions: Thank you for choosing [facility] for your healthcare needs today. Please realize this is an emergency room and that we are providing you with a medical screening exam and this may not be complete and all inclusive of all the testing and or work up that you may need to determine your ailment or severity of your illness. You have been screened and evaluated and felt safe for discharge. Health conditions do change or evolve sometimes and as such it is important that you follow up with your Primary Doctor to be re checked, 3-5 days is a general good time frame for follow up. 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 for Toni Ramírez
[2023-10-27 16:41] VITALS: BP 136/75; PULSE 90; O2SAT 95
[2023-10-27 16:42] LABS: Basophils # 0.1 10^3/uL (0.0-0.1); Basophils % 0.6 %; Eosinophils # 0.2 10^3/uL (0.0-0.8); Eosinophils % 2.8 %; Hematocrit 43.5 % (36-47); Lymphocytes # 2.2 10^3/uL (0.8-4.8); Lymphocytes % 25.7 %; Mean Corpuscular HGB Conc 33.8 g/dL (30-55); Mean Corpuscular Hemoglobin 29.5 pg (27-33); Mean Corpuscular Volume 87.2 fl (85-98); Mean Platelet Volume 10.2 fL (7.4-10.4); Monocytes # 0.7 10^3/uL (0.2-0.9); Monocytes % 8.1 %; Neutrophils # 5.41 10^3/uL (1.8-7.7); Neutrophils % 62.5 %; Nucleated Red Blood Cells % 0 %; Platelet Count 259 10^3/cmm (157-399); Red Blood Count 4.99 10^6/uL (3.85-5.65); Red Cell Distribution Width 13.1 % (12.1-15.1); White Blood Count 8.65 10^3/uL (3.29-11.43)
[2023-10-27 17:16] LABS: Alanine Aminotransferase 25 U/L (0-33); Albumin Level 4.1 g/dL (3.5-5.2); Alkaline Phosphatase 106 U/L (35-105); Anion Gap 11.7 (5-19); Aspartate Amino Transferase 23 U/L (0-32); Blood Urea Nitrogen 9 mg/dL (6-20); Calcium 8.8 mg/dL (8.5-10.5); Carbon Dioxide 28 mmol/L (22-29); Chloride 106 mmol/L (98-107); Creatinine Clr Calc Pharmacy 95.5021; Globulin 3.5 g/dL (1.3-4.6); Glomerular Filtration Rate 88.2 mL/min (90-130); Glucose 95 mg/dL (65-115); Osmolality Calculated 292 mOsm/kg (285-295); Potassium 3.7 mmol/L (3.5-5.1); Sodium 142 mmol/L (136-145); Total Bilirubin 0.4 mg/dL (0.15-1.2); Total Protein 7.6 g/dL (6.6-8.7)
[2023-10-27 17:17] VITALS: BP 137/91; PULSE 87; O2SAT 95
[2023-10-27 18:02] LABS: Add Urine Microscopic? NO; Charge for UA Resulting for Rev
[2023-10-27 18:19] LABS: Bilirubin Urine Neg (Negative); Blood Urine Neg (Negative); Glucose Urine UA Norm (Normal); Ketones Urine Negative (Negative); Leukocyte Esterase Urine Negative (Negative); Nitrate Urine Negative (Negative); Protein Urine Neg (Negative); Urine Appearance Clear (CLEAR); Urine Color Yellow (Yellow); Urobilinogen Urine Norm (Negative); pH Urine 5 (5-7)
[2023-10-27] MEDS: sodium chloride 0.9% 1,000 ML 999 ML IV (18:49)
[2023-10-27] MEDS: ondansetron 2 mg/ML SDV 2 mL 4 MG IVP (18:49)
[2023-10-27] MEDS: ketorolac 30 mg/mL INJ IVP (19:22)
[2023-10-27 19:23] VITALS: BP 117/70; PULSE 90; O2SAT 96
[2023-10-27 20:18] VITALS: BP 117/70; PULSE 90; RESP 16; TEMP 36.7; O2SAT 96
== END 2023-10-27 20:19 | disposition home or self-care (01) ==
PROVIDERS: Family Medicine; Emergency Provider Emergency Medicine; PCP Nurse Practitioner Family
DX: R51.9 Headache, unspecified (principal); B34.9 Viral infection, unspecified; Z79.82 Long term (current) use of aspirin; Z79.84 Long term (current) use of oral hypoglycemic drugs; Z77.22 Contact with and (suspected) exposure to environmental tobacco smoke (acute) (chronic); E11.9 Type 2 diabetes mellitus without complications; J44.9 Chronic obstructive pulmonary disease, unspecified; Z86.73 Personal history of transient ischemic attack (TIA), and cerebral infarction without residual deficits
CPT/HCPCS: 36415; 70450; 71045; 80053; 81003; 85025; 93005; 96374; 96375; 99285; J1885; J2405; J7030

== ENCOUNTER → 2023-12-23 13:22 | Outpatient (BNVA) | payer MEDICAID, SELFPAY ==
[2023-08-24 13:37] VITALS: BP 137/93; BMI 33.9
== END ==
PROVIDERS: PCP Nurse Practitioner Family; Visit Provider Internal Medicine Cardiovascular Disease
DX: R00.0 Tachycardia, unspecified (principal); E78.5 Hyperlipidemia, unspecified; F33.1 Major depressive disorder, recurrent, moderate; E11.9 Type 2 diabetes mellitus without complications; Z79.84 Long term (current) use of oral hypoglycemic drugs; E66.9 Obesity, unspecified; Z68.34 Body mass index [BMI] 34.0-34.9, adult
CPT/HCPCS: 99213

== ENCOUNTER → 2024-02-15 11:17 | Outpatient (BNVA) | payer MEDICAID, SELFPAY ==
[2023-12-27 14:48] VITALS: BP 127/84; BMI 34.4
== END ==
PROVIDERS: PCP Nurse Practitioner Family; Visit Provider Podiatrist Foot & Ankle Surgery
DX: E11.42 Type 2 diabetes mellitus with diabetic polyneuropathy (principal); I73.9 Peripheral vascular disease, unspecified; M21.6X9 Other acquired deformities of unspecified foot; Z87.2 Personal history of diseases of the skin and subcutaneous tissue; L85.3 Xerosis cutis
CPT/HCPCS: 99213

== ENCOUNTER 2024-03-22 10:44 | Outpatient (CLI) | payer OTHER, SELFPAY ==
[2024-03-17 11:16] VITALS: BP 127/84; BMI 34.4
[2024-03-22 11:00] VITALS: PULSE 91; RESP 18; O2SAT 96
[2024-03-22] MEDS: albuterol 2.5 mg/3 mL Neb INHALATION (11:00)
== END 2024-03-22 10:45 | disposition home or self-care (01) ==
PROVIDERS: PCP Nurse Practitioner Family; Visit Provider Internal Medicine
DX: Z02.71 Encounter for disability determination (principal)
CPT/HCPCS: 94060

== ENCOUNTER 2024-04-19 08:52 | Outpatient (CLI) | payer MEDICAID, SELFPAY ==
[2024-03-17 11:16] VITALS: BP 127/84; BMI 34.4
--- NOTE | 2024-04-19 09:02 | FL_ITS ---
WS: [email or web address] Exam: FL barium swallow [id number] Date/Time of Exam: 04/19/2024 9:07 AM Reason For Exam: DIFFICULTY SWALLOWING Fluoroscopy time: 3min [id number] minutes # of spot films: 11 The patient experienced several choking episodes when swallowing but no aspiration was identified. Th ere was no sign of intrinsic esophageal mass or stricture. There is mild extrinsic posterior compress ion of the cervical esophagus at the C6-7 level secondary to anterior osteophytes of C6 and 7. Tertia ry spasm of the mid and lower esophagus noted. No hiatal hernia or reflux identified. FL/FL barium swallow [id number] IMPRESSION: 1. No esophageal mass or stricture. 2. Mild posterior extrinsic compression of the cervical esophagus at the C6-7 l evel secondary to anterior bone spurs. 2. The patient experienced several choking episodes when swallowing barium but no aspiration was seen. A modified barium swallow test might be helpful in furt her work-up if thought to be clinically warranted.
--- NOTE | 2024-04-19 09:43 | MM_ITS ---
WS: [email or web address] VIEWS: MLO and CC views both breasts. 3D digital tomosynthesis is also included in this exam. Comparison made with prior exam of 04/18/2013, 01/12/2022, 01/25/2023.. Findings: The breasts are heterogeneously dense, which may obscure small masses. No mass, tumor calcification or architectural distortion. MM/MM scr BI tomosynthesis [id number] Impression: BI-RADS: 2 - Benign FOLLOW-UP: 1 Year Follow-up This mammogram was also analyzed by the Computer Aided Detection System R2 Imag e Cradle Placer.
== END 2024-04-19 08:53 | disposition home or self-care (01) ==
LOC: RAD 08:54
PROVIDERS: PCP Nurse Practitioner Family; Visit Provider Nurse Practitioner Family
DX: Z12.31 Encounter for screening mammogram for malignant neoplasm of breast (principal); R13.10 Dysphagia, unspecified; R92.333 Mammographic heterogeneous density, bilateral breasts
CPT/HCPCS: 74220; 77063; 77067

== ENCOUNTER 2024-05-01 14:14 | Outpatient (CLI) | payer MEDICAID, SELFPAY ==
[2024-03-17 11:16] VITALS: BP 127/84; BMI 34.4
[2024-05-01 15:09] LABS: Alanine Aminotransferase 21 U/L (0-33); Albumin Level 4.4 g/dL (3.5-5.2); Alkaline Phosphatase 107 U/L (35-105); Anion Gap 10.7 (5-19); Aspartate Amino Transferase 20 U/L (0-32); Blood Urea Nitrogen 14 mg/dL (6-20); Calcium 9.9 mg/dL (8.5-10.5); Carbon Dioxide 32 mmol/L (22-29); Chloride 100 mmol/L (98-107); Chol HDL Ratio 6.74 mg/dL (0.0-4.40); Cholesterol 209 mg/dL (0-200); Estmated Average Glucose 123; Globulin 3.6 g/dL (1.3-4.6); Glomerular Filtration Rate 87.9 mL/min (90-130); Glucose 94 mg/dL (65-115); HDL Cholesterol 31 mg/dL (60-100); Hemoglobin A1C 5.9 % (4.0-6.0); LDL Cholesterol Calculated 130 mg/dL (50-129); LDL HDL Ratio 4.19 RATIO (0.00-3.22); Osmolality Calculated 288 mOsm/kg (285-295); Potassium 3.7 mmol/L (3.5-5.1); Sodium 139 mmol/L (136-145); Total Bilirubin 0.6 mg/dL (0.15-1.2); Triglycerides 240 mg/dL (0-150)
[2024-05-01 15:10] LABS: Creatinine Urine, Random 145 mg/dL (28-217); Microalbum Creatinine Ratio Ur 7 mg/dL (0-20); Microalbumin Random Urine 1 ug/dL (0-20)
[2024-05-01 15:25] LABS: 25 Hydroxy Vitamin D 25 ng/mL (30-100); Vitamin B12 1553 pg/mL (232-1245)
== END 2024-05-01 14:15 | disposition home or self-care (01) ==
LOC: LAB 14:15
PROVIDERS: PCP Nurse Practitioner Family; Visit Provider Internal Medicine
DX: E11.9 Type 2 diabetes mellitus without complications (principal); E78.5 Hyperlipidemia, unspecified; E55.9 Vitamin D deficiency, unspecified
CPT/HCPCS: 36415; 80053; 80061; 82044; 82306; 82607; 83036

== ENCOUNTER → 2024-05-04 10:13 | Outpatient (BNVA) | payer MEDICAID, SELFPAY ==
[2024-05-04 11:35] VITALS: BP 128/81; BMI 33.3
== END ==
PROVIDERS: PCP Nurse Practitioner Family; Visit Provider Internal Medicine
DX: E11.9 Type 2 diabetes mellitus without complications (principal); E78.5 Hyperlipidemia, unspecified; E55.9 Vitamin D deficiency, unspecified; E66.9 Obesity, unspecified; M79.10 Myalgia, unspecified site; Z68.34 Body mass index [BMI] 34.0-34.9, adult; Z79.84 Long term (current) use of oral hypoglycemic drugs; Z79.85 Long-term (current) use of injectable non-insulin antidiabetic drugs
CPT/HCPCS: 99214

== ENCOUNTER 2024-05-20 12:45 | Emergency (ER) | payer MEDICAID, SELFPAY ==
[2024-05-04 11:35] VITALS: BP 128/81; BMI 33.3
[2024-05-20 13:08] VITALS: BP 122/75; PULSE 100; RESP 18; TEMP 36.8; O2SAT 99; BMI 32.9
--- NOTE | 2024-05-20 13:16 | XRR_ITS ---
PROCEDURE INFORMATION: Exam: XR Chest Exam date and time: 05/20/2024 1:42 PM Age: 53 years old Clinical indication: Patient HX: Cough; N/v; Lower abd pain TECHNIQUE: Imaging protocol: Radiologic exam of the chest. Views: 1 view. COMPARISON: CR XR chest 1V portable [id number] 10/27/2023 3:58 PM FINDINGS: Lungs: Unremarkable. No consolidation. Pleural spaces: Unremarkable. No pleural effusion. No pneumothorax. Heart/Mediastinum: Unremarkable. No cardiomegaly. Bones/joints: Unremarkable. XR/XR chest 1V portable [id number] IMPRESSION: No acute findings.
[2024-05-20 13:58] LABS: Bilirubin Urine Negative (Negative); Blood Urine 2+ (Negative); Glucose Urine UA Negative (Normal); Ketones Urine Negative (Negative); Leukocyte Esterase Urine 1+ (Negative); Nitrate Urine Negative (Negative); Protein Urine Trace (Negative); Specific Gravity, Urine 1.011 (1.005-1.030); Urine Appearance Clear (CLEAR); Urine Color Yellow (Yellow); Urobilinogen Urine 0.2 mg/dL (Negative)
[2024-05-20 14:04] LABS: Add Urine Microscopic? YES; Bacteria Urine Trace /hpf; Hyaline Casts Urine 1.65 /lpf; RBC Urine 0-2 /hpf (0-2); Squamous Epithelial Cell Urine 0-5 /hpf (0-5)
[2024-05-20 14:10] LABS: Add Urine Culture? Yes
--- NOTE | 2024-05-20 14:15 | W.ED.NAVMDI ---
HPI - Nausea/Vomiting/Diarrhea General: Chief complaint: Nausea/Vomiting/Diarrhea Stated complaint: N/D low abd pain Time Seen by Provider: 05/20/24 13:28 History of Present Illness: Patient presents to the ER with complaints of nausea watery diarrhea cough low abdominal suprapubic pelvic pain for the last 4 days. Patient says everything she puts in her mouth comes right back up. She says she has multiple bowel movements of just watery diarrhea. She thinks is getting dehydrated. Nu[place] any problems breathing swallowing. Patient has been alternating Motrin and Tylenol for fever for the last several days. Patient has no known sick contacts or ate no possibly bad food that she was aware of. Related Data Home Medications Medication Instructions Recorded Confirmed aspirin 81 mg tablet,delayed 81 mg PO DAILY 07/21/21 05/04/24 release rosuvastatin 20 mg tablet 20 mg PO DAILY 01/26/22 05/04/24 metformin 500 mg tablet 1,000 mg PO BID 12/27/22 05/04/24 oxybutynin chloride 10 mg 10 mg PO DAILY 12/27/22 05/04/24 tablet,extended release 24 hr Previous Rx's Medication Instructions Recorded blood sugar diagnostic (Blood #100 ea 09/03/20 Glucose Test strips) blood-glucose meter (Blood Glucose #1 ea 09/03/20 Monitoring kit) lancets 33 gauge (BD Ultra Fine #100 ea 09/03/20 Lancets) pen needle, diabetic 32 gauge x #100 ea 05/02/21 omeprazole 20 mg capsule,delayed 20 mg PO DAILY #90 caps 08/13/21 release blood sugar diagnostic (OneTouch #50 ea 03/06/22 Ultra Test strips) nitroglycerin 0.4 mg sublingual 0.4 mg sublingual Q5M PRN Chest 06/15/22 tablet (Nitrostat) Pain #25 tabs fluticasone propionate 50 2 spray intranasal DAILY 12 months 09/16/22 mcg/actuation nasal #16 grams spray,suspension celecoxib 100 mg capsule (Celebrex) 100 mg PO BID PRN pain #30 caps 10/03/22 methocarbamol 750 mg tablet 750 mg PO Q8H PRN muscle spasms 10/03/22 and pain #20 tabs dicyclomine 10 mg capsule 10 mg PO BID PRN abdominal pain 12/27/22 #20 caps ondansetron 4 mg disintegrating 4 mg PO Q8H PRN nausea and 12/27/22 tablet vomiting #15 tabs mupirocin 2 % topical ointment 1 applic topical TID 7 days #22 01/02/23 grams Diabetic shoes with 3 pairs of #1 ea 01/25/23 inserts acetaminophen 325 mg capsule 325 mg PO Q4H PRN fever or pain 02/17/23 #60 caps ibuprofen 800 mg tablet 800 mg PO TID PRN pain #60 tabs 02/17/23 pantoprazole 40 mg tablet,delayed 40 mg PO DAILY #60 tabs 05/18/23 release (Protonix) ondansetron 8 mg disintegrating 8 mg PO .q6 PRN nausea and 10/27/23 tablet vomiting #14 tabs polyethylene glycol 3350 17 See Rx Instructions .Route 11/16/23 gram/dose oral powder .COMPLEX #510 grams promethazine-DM 6.25 mg-15 mg/5 mL 5 ml PO Q6H PRN cough #160 mL 11/22/23 oral syrup albuterol sulfate 2.5 mg/3 mL 2.5 mg (3 mL) inhalation QID PRN 12/23/23 (0.083 %) solution for nebulization shortness of breath or wheezing #180 mL albuterol sulfate 90 mcg/actuation 2 puff inhalation Q6H PRN 12/23/23 aerosol inhaler shortness of breath or wheezing #16 grams azithromycin 250 mg tablet See Rx Instructions PO .COMPLEX #6 12/23/23 tabs fluticasone 500 mcg-salmeterol 50 1 inh inhalation BID #60 ea 12/23/23 mcg/dose blistr powdr for inhalation (Advair Diskus) nebulizers #1 ea 12/23/23 prednisone 10 mg tablet 10 mg PO DAILY #11 tabs 12/23/23 tiotropium bromide 18 mcg capsule 1 cap inhalation DAILY #90 12/23/23 with inhalation device (Spiriva inhalations with HandiHaler) diabetic shoes with 3 inserts #1 ea 02/15/24 fluoxetine 20 mg/5 mL (4 mg/mL) 80 mg (20 mL) PO .q am #600 mL 03/13/24 oral solution dulaglutide 0.75 mg/0.5 mL 0.75 mg (0.5 mL) SUBCUT Q7D #2 mL 05/04/24 subcutaneous pen injector (Trulicity) ciprofloxacin 500 mg/5 mL oral 500 mg (5 mL) PO BID #100 mL 05/20/24 suspension ondansetron 4 mg disintegrating 4 mg PO Q8H PRN nausea and 05/20/24 tablet vomiting #14 tabs Allergies Allergy/AdvReac Type Severity Reaction Status Date / Time raspberry Allergy Severe closes up Verified 05/04/24 07:33 throat venom-wasp Allergy Severe ALGY-Anaphy Verified 05/04/24 07:33 laxis codeine Allergy ALGY-Difficulty Verified 05/04/24 07:33 Breathing Penicillins Allergy ALGY-Rash Verified 05/04/24 07:33 Sulfa (Sulfonamide Allergy ALGY-Rash Verified 05/04/24 07:33 Antibiotics) Review of Systems General: Reports: 10 or more systems reviewed and unremarkable except in HPI and below PFSH ED PFSH: Medical History GERD (gastroesophageal reflux disease) Diabetes mellitus, controlled Psychiatric care YAIR (obstructive sleep apnea) Major depressive disorder, recurrent, moderate Depression COPD (chronic obstructive pulmonary disease) CVA (cerebral vascular accident) Surgical History History of anterior colporrhaphy (~02/16/23) Anterior colporrhaphy augmented with allograft, single incision mid urethral sling, cystoscopy. Performed by [facility]. History of colonoscopy History of tubal ligation Hx of oophorectomy H/O laparoscopy H/O: hysterectomy History of cholecystectomy Family History Father CAD (coronary artery disease) Cancer Diabetes Hyperlipidemia Mother Hypertension Psychiatric illness Brother Hypertension Social History Smoking and tobacco/nicotine status: never used tobacco/nicotine Second hand smoke exposure: Yes Alcohol intake: current Alcohol intake frequency: holidays/special occasions only Alcohol type: other Substance/Drug Use: never Adopted: No Caregiver/support person: No Lives independently: Yes Household members: friend(s) and none Housing: Apartment Marital status: Number of children: 3 Number of grandchildren: 7 Highest education level completed: High School Graduate service: No Current occupational status: employed Current occupation: [employer] Current occupational exposures/hazards: No Pets and animals: Yes (4 tiny dogs) Pets & animals: dog(s) Leisure activites: art and other Leisure activities details: watch TV Sexually active: No Do you think of yourself as: Straight/Heterosexual Current gender identity: Female Merced/Rastafari: Holiness Special merced needs: No Agree to transfusion: No (Jehova's Witness) Female Reproductive History: Para: 3 Spontaneous abortions: Yes (X 3) Physical Exam Const: COMMON NORMALS: no acute distress, average body habitus, patient oriented x3, no limitations, healthy appearing, alert and well nourished HENMT: COMMON NORMALS: normocephalic, atraumatic, hearing grossly normal bilaterally, external ears normal, Normal external nose present and moist oral mucous membranes HEAD & SCALP: normocephalic and atraumatic NOSE: Normal external nose present EXTERNAL EAR: Yes external ears normal Neck/C-Spine: COMMON NORMALS: no JVD Chest: COMMONS NORMALS: normal inspection of the chest and normal palpation of entire chest wall Resp: COMMON NORMALS: normal respiratory effort, No retractions, No use of accessory muscles and clear to auscultation bilaterally AUSCULTATION: clear to auscultation bilaterally Cardio: COMMON NORMALS: no JVD, regular rate, regular rhythm, S1 normal heart sound present, S2 normal heart sound present, No gallops present (Cardio), No clicks present (Cardio), No murmurs present (Cardio) and No rub (Cardio) RATE: regular rate RHYTHM: regular rhythm HEART SOUNDS: S1 normal heart sound present and S2 normal heart sound present GI: COMMON NORMALS: Normal to inspection, nondistended, normoactive bowel sounds present, Soft to palpation, No hepatosplenomegaly present and no masses; negative for non-tender (Tender to palpate suprapubically) PALPATION: Yes Soft to palpation and Yes No hepatosplenomegaly present Neuro: COMMON NORMALS: patient oriented x3 SENSORIUM/ORIENTATION: Yes alert Course Vital Signs: Vital signs: Vital Signs Temperature 98.3 F 05/20/24 13:08 Pulse Rate 100 05/20/24 13:08 Respiratory Rate 16 05/20/24 15:30 Blood Pressure 109/68 05/20/24 15:30 Pulse Oximetry 92 05/20/24 15:30 Oxygen Delivery Me thod Room Air 05/20/24 13:08 MDM - Nausea/Vomiting/Diarrhea Medical Decision Making Lab work was obtained, patient was given Toradol, Zofran, and discussed the results. Patient may have a mild UTI along with gastroenteritis. Patient be prescribed Cipro liquid and Zofran ODT sent to their [facility]. Medical Records I reviewed the patient's medical records. Lab Data I reviewed the patient's lab results. 05/20/24 14:15 05/20/24 14:15 Radiology Impressions Chest X-Ray 05/20/24 13:16 IMPRESSION: No acute findings. Laboratory Results WBC 10.53 10^3/uL (3.29-11.43) 05/20/24 14:15 RBC 4.82 10^6/uL (3.85-5.65) 05/20/24 14:15 Hgb 13.70 g/dL (11.27-16.99) 05/20/24 14:15 Hct 42.2 % (36-47) 05/20/24 14:15 MCV 87.6 fl (85-98) 05/20/24 14:15 MCH 28.4 pg (27-33) 05/20/24 14:15 MCHC 32.5 g/dL (30-55) 05/20/24 14:15 RDW 13.6 % (12.1-15.1) 05/20/24 14:15 Plt Count 243 10^3/cmm (157-399) 05/20/24 14:15 MPV 10.0 fL (7.4-10.4) 05/20/24 14:15 Neut % (Auto) 66.0 % 05/20/24 14:15 Lymph % (Auto) 16.5 % 05/20/24 14:15 [place] % (Auto) 15.8 % 05/20/24 14:15 Eos % (Auto) 0.8 % 05/20/24 14:15 Baso % (Auto) 0.6 % 05/20/24 14:15 Neut # (Auto) 6.96 10^3/uL (1.8-7.7) 05/20/24 14:15 Lymph # (Auto) 1.7 10^3/uL (0.8-4.8) 05/20/24 14:15 [place] # (Auto) 1.7 10^3/uL (0.2-0.9) H 05/20/24 14:15 Eos # (Auto) 0.1 10^3/uL (0.0-0.8) 05/20/24 14:15 Baso # (Auto) 0.1 10^3/uL (0.0-0.1) 05/20/24 14:15 Nucleated RBC % (auto) 0 % 05/20/24 14:15 Nucleated RBCs # 0.0 /100WBC 05/20/24 14:15 Sodium 137 mmol/L (136-145) 05/20/24 14:15 Potassium 3.4 mmol/L (3.5-5.1) L 05/20/24 14:15 Chloride 98 mmol/L (98-107) 05/20/24 14:15 Carbon Dioxide 29 mmol/L (22-29) 05/20/24 14:15 Anion Gap 13.4 (5-19) 05/20/24 14:15 BUN 8 mg/dL (6-20) 05/20/24 14:15 Creatinine 0.8 mg/dL (0.5-0.9) 05/20/24 14:15 GFR Calculation 75.3 mL/min (90-130) L 05/20/24 14:15 Glucose 103 mg/dL (65-115) 05/20/24 14:15 Calculated Osmolality 283 mOsm/kg (285-295) L 05/20/24 14:15 Calcium 9.0 mg/dL (8.5-10.5) 05/20/24 14:15 Magnesium 2.2 mg/dL (1.7-2.3) 05/20/24 14:15 Total Bilirubin 0.4 mg/dL (0.15-1.2) 05/20/24 14:15 AST 17 U/L (0-32) 05/20/24 14:15 ALT 17 U/L (0-33) 05/20/24 14:15 Alkaline Phosphatase 117 U/L (35-105) H 05/20/24 14:15 Total Protein 7.4 g/dL (6.6-8.7) 05/20/24 14:15 Albumin 3.8 g/dL (3.5-5.2) 05/20/24 14:15 Globulin 3.6 g/dL (1.3-4.6) 05/20/24 14:15 Lipase 20 U/L (13-60) 05/20/24 14:15 Urine Color Yellow (Yellow) 05/20/24 13:39 Urine Appearance Clear (CLEAR) 05/20/24 13:39 Urine pH 5.0 (5-7) 05/20/24 13:39 Ur Specific [place] 1.011 (1.005-1.030) 05/20/24 13:39 Urine Protein Trace (Negative) A 05/20/24 13:39 Urine Glucose (UA) Negative (Normal) 05/20/24 13:39 Urine Ketones Negative (Negative) 05/20/24 13:39 Urine Blood 2+ (Negative) A 05/20/24 13:39 Urine Nitrate Negative (Negative) 05/20/24 13:39 Urine Bilirubin Negative (Negative) 05/20/24 13:39 Urine Urobilinogen 0.2 mg/dL (Negative) 05/20/24 13:39 Ur Leukocyte Esterase 1+ (Negative) A 05/20/24 13:39 Urine RBC 0-2 /hpf (0-2) 05/20/24 13:39 Urine WBC 11-20 /hpf (0-5) H 05/20/24 13:39 Ur Squamous Epith Cells 0-5 /hpf (0-5) 05/20/24 13:39 Amorphous Sediment Not Reportable 05/20/24 13:39 Urine Bacteria Trace /hpf (NONE) 05/20/24 13:39 Hyaline Casts 1.65 /lpf 05/20/24 13:39 All radiology interpretation(s) finalized by discharge Discharge Plan Discharge Patient Disposition: Home Clinical Impression: Gastroenteritis Urinary tract infection Qualifiers: Urinary tract infection type: acute cystitis Hematuria presence: without hematuria Qualified Code(s): N30.00 - Acute cystitis without hematuria Condition: Stable Prescriptions: New ciprofloxacin 500 mg/5 mL suspension,microcapsule recon 500 mg PO BID Qty: 100 0RF ondansetron 4 mg tablet,disintegrating 4 mg PO Q8H PRN (Reason: nausea and vomiting) Qty: 14 0RF No Action (DME) blood-glucose meter [Blood Glucose Monitoring] Kit See Rx Instructions .ROUTE .MEDSUPPLY Qty: 1 0RF Rx Instructions: check blood sugar daily as directed [place] Blood Glucose Test Strip See Rx Instructions .ROUTE .MEDSUPPLY Qty: 100 3RF Rx Instructions: check blood sugar (DME) lancets [BD Ultra Fine Lancets] 33 gauge misc See Rx Instructions .ROUTE .MEDSUPPLY Qty: 100 3RF Rx Instructions: check blood sugar daily as directed rosuvastatin 20 mg tablet 20 mg PO DAILY nitroglycerin [Nitrostat] 0.4 mg tablet, sublingual 0.4 mg SUBLINGUAL Q5M PRN (Reason: Chest Pain) Qty: 25 3RF fluticasone propionate 50 mcg/actuation spray,suspension 2 spray intranasal DAILY 360 Days Qty: 16 11RF Rx Instructions: administer into each nostril Trulicity 0.75 mg/0.5 mL pen injector 0.75 mg SUBCUT Q7D Qty: 2 1RF Rx Instructions: inject 0.75mg weekly promethazine-DM 6.25-15 mg/5 mL syrup 5 ml PO Q6H PRN (Reason: cough) Qty: 160 0RF fluticasone propion-salmeterol [Advair Diskus] 500-50 mcg/dose blister with device 1 inh inhalation BID Qty: 60 3RF Spiriva with HandiHaler 18 mcg capsule, w/inhalation device 1 cap INHALATION DAILY Qty: 90 3RF Rx Instructions: puncture 1 cap using device; one dose = 2 inhalations albuterol sulfate 90 mcg/actuation HFA aerosol inhaler 2 puff inhalation Q6H PRN (Reason: shortness of breath or wheezing) Qty: 16 0RF albuterol sulfate 2.5 mg /3 mL (0.083 %) solution for nebulization 2.5 mg inhalation QID PRN (Reason: shortness of breath or wheezing) Qty: 180 2RF (DME) nebulizers [facility] See Rx Instructions .Route Qty: 1 0RF Rx Instructions: As directed prednisone 10 mg tablet 10 mg PO DAILY Qty: 11 0RF Rx Instructions: 40 mg X 1 day / 30 mg x 1 day/ 20 mg x 1 day / 10 mg x 1 day/ 5 mg x 2 azithromycin 250 mg tablet See Rx Instructions PO .COMPLEX Qty: 6 0RF Rx Instructions: For 250 mg dose pack: take 500 mg today (day 1), then 250 mg for 4 days (days 2-5) PO fluoxetine 20 mg/5 mL (4 mg/mL) solution 80 mg PO .q am Qty: 600 2RF Rx Instructions: Take 80 mg daily (20 ml) once daily every morning mupirocin 2 % ointment 1 applic topical TID 7 Days Qty: 22 1RF (DME) Diabetic shoes with 3 pairs of inserts See Rx Instructions .Route .MEDSUPPLY Qty: 1 0RF Rx Instructions: As directed ([facility] diabetic shoes with 3 inserts See Rx Instructions .Route .MEDSUPPLY Qty: 1 0RF Rx Instructions: As directed to the shoe guys ([facility]) pen needle, diabetic 32 gauge x 5/32 needle See Rx Instructions .Route Qty: 100 3RF Rx Instructions: As directed ([facility]) OneTouch Ultra Test Strip See Rx Instructions .ROUTE .COMPLEX Qty: 50 0RF Dose Instruction: USE 1 STRIP TO CHECK GLUCOSE ONCE DAILY DIRECTED . APPOINTMENT REQUIRED FOR FUTURE REFILLS Rx Instructions: USE 1 STRIP TO CHECK GLUCOSE ONCE DAILY DIRECTED . APPOINTMENT REQUIRED FOR FUTURE REFILLS polyethylene glycol 3350 17 gram/dose powder See Rx Instructions .ROUTE .COMPLEX Qty: 510 1RF Dose Instruction: MIX 17 GRAMS OF POWDER IN 8 OUNCES OF LIQUID AND DRINK ONCE DAILY Rx Instructions: MIX 17 GRAMS OF POWDER IN 8 OUNCES OF LIQUID AND DRINK ONCE DAILY aspirin 81 mg Tablet,Delayed Release (Dr/Ec) 81 mg PO DAILY omeprazole 20 mg capsule,delayed release(DR/EC) 20 mg PO DAILY Qty: 90 0RF Hold Instructions: Resume on 10/31/21. celecoxib [Celebrex] 100 mg capsule 100 mg PO BID PRN (Reason: pain) Qty: 30 0RF methocarbamol 750 mg tablet 750 mg PO Q8H PRN (Reason: muscle spasms and pain) Qty: 20 0RF metformin 500 mg tablet 1,000 mg PO BID oxybutynin chloride 10 mg tablet extended release 24hr 10 mg PO DAILY dicyclomine 10 mg capsule 10 mg PO BID PRN (Reason: abdominal pain) Qty: 20 0RF ondansetron 4 mg tablet,disintegrating 4 mg PO Q8H PRN (Reason: nausea and vomiting) Qty: 15 0RF ibuprofen 800 mg tablet 800 mg PO TID PRN (Reason: pain) Qty: 60 0RF acetaminophen 325 mg capsule 325 mg PO Q4H PRN (Reason: fever or pain) Qty: 60 0RF Protonix 40 mg tablet,delayed release (DR/EC) 40 mg PO DAILY Qty: 60 0RF ondansetron 8 mg tablet,disintegrating 8 mg PO .q6 PRN (Reason: nausea and vomiting) Qty: 14 0RF Discharge Orders: Discharge ED (Routine); Ordered 05/20/24 Ordered By: Deep Avendano Referrals: Suzette Bowman FNP [Primary Care Provider] - 1 week Patient Instructions: Gastroenteritis (DC), Urinary Tract Infection - Women Activity Restrictions/Additional Instructions: Please go to the pharmacy, pickers material handlers your prescriptions, take them as directed. Please follow-up with your family practice physician within the next 7 days for further evaluation and treatment. Coding Level of Care Code ED Rag Boiler for Toni Ramírez
[2024-05-20 14:44] LABS: Basophils # 0.1 10^3/uL (0.0-0.1); Basophils % 0.6 %; Eosinophils # 0.1 10^3/uL (0.0-0.8); Eosinophils % 0.8 %; Hematocrit 42.2 % (36-47); Lymphocytes # 1.7 10^3/uL (0.8-4.8); Lymphocytes % 16.5 %; Mean Corpuscular HGB Conc 32.5 g/dL (30-55); Mean Corpuscular Hemoglobin 28.4 pg (27-33); Mean Corpuscular Volume 87.6 fl (85-98); Monocytes # 1.7 10^3/uL (0.2-0.9); Monocytes % 15.8 %; Neutrophils # 6.96 10^3/uL (1.8-7.7); Nucleated Red Blood Cells % 0 %; Platelet Count 243 10^3/cmm (157-399); Red Blood Count 4.82 10^6/uL (3.85-5.65); Red Cell Distribution Width 13.6 % (12.1-15.1); White Blood Count 10.53 10^3/uL (3.29-11.43)
[2024-05-20 15:03] LABS: Alanine Aminotransferase 17 U/L (0-33); Albumin Level 3.8 g/dL (3.5-5.2); Alkaline Phosphatase 117 U/L (35-105); Anion Gap 13.4 (5-19); Aspartate Amino Transferase 17 U/L (0-32); Blood Urea Nitrogen 8 mg/dL (6-20); Carbon Dioxide 29 mmol/L (22-29); Chloride 98 mmol/L (98-107); Creatinine Clr Calc Pharmacy 81.4473; Globulin 3.6 g/dL (1.3-4.6); Glomerular Filtration Rate 75.3 mL/min (90-130); Glucose 103 mg/dL (65-115); Lipase 20 U/L (13-60); Magnesium 2.2 mg/dL (1.7-2.3); Osmolality Calculated 283 mOsm/kg (285-295); Potassium 3.4 mmol/L (3.5-5.1); Sodium 137 mmol/L (136-145); Total Bilirubin 0.4 mg/dL (0.15-1.2); Total Protein 7.4 g/dL (6.6-8.7)
[2024-05-20] MEDS: ketorolac 60 mg/2 mL INJ IM (15:07)
[2024-05-20] MEDS: ondansetron 2 mg/ML SDV 2 mL 4 MG IM (15:07)
[2024-05-20 15:30] VITALS: BP 109/68; RESP 16; O2SAT 92
[2024-05-20 16:23] VITALS: BP 113/86; PULSE 89; RESP 16; O2SAT 94
== END 2024-05-20 16:21 | disposition home or self-care (01) ==
PROVIDERS: Emergency Provider Emergency Medicine; PCP Nurse Practitioner Family
DX: K52.9 Noninfective gastroenteritis and colitis, unspecified (principal); N30.00 Acute cystitis without hematuria; Z79.82 Long term (current) use of aspirin; Z86.73 Personal history of transient ischemic attack (TIA), and cerebral infarction without residual deficits; J44.9 Chronic obstructive pulmonary disease, unspecified; E11.9 Type 2 diabetes mellitus without complications
CPT/HCPCS: 71045; 80053; 81001; 83690; 83735; 85025; 87086; 96372; 99284; J1885; J2405

== ENCOUNTER 2024-06-13 10:04 | Outpatient (CLI) | payer MEDICAID, SELFPAY ==
[2024-05-04 11:35] VITALS: BP 128/81; BMI 33.3
--- NOTE | 2024-06-13 10:11 | FL_ITS ---
WS: [email or web address] FL barium swallow modifd [id number] REASON FOR EXAM: Oral dysphagia FLUOROSCOPY TIME: 2min [id number] # OF SPOT FILMS: None FINDINGS: Examination was performed under the supervision of the speech therapy department. The patient was examined in the sitting upright lateral projection. The swallowing of barium of varying consistencies was monitored for fluoroscopically and video record ed. FL/FL barium swallow modifd [id number] IMPRESSION: There is no aspiration. Detailed report of the swallowing will be rendered by the speech therapy depart ment.
== END 2024-06-13 10:05 | disposition home or self-care (01) ==
LOC: RAD 10:04
PROVIDERS: PCP Nurse Practitioner Family; Visit Provider Nurse Practitioner Family
DX: R13.10 Dysphagia, unspecified (principal); R93.89 Abnormal findings on diagnostic imaging of other specified body structures
CPT/HCPCS: 74230; 92611

== ENCOUNTER → 2024-06-19 13:14 | Outpatient (BNVA) | payer MEDICAID, SELFPAY ==
[2024-05-04 11:35] VITALS: BP 128/81; BMI 33.3
== END ==
PROVIDERS: PCP Nurse Practitioner Family; Visit Provider Nurse Practitioner
DX: M19.011 Primary osteoarthritis, right shoulder; M75.101 Unspecified rotator cuff tear or rupture of right shoulder, not specified as traumatic; M54.12 Radiculopathy, cervical region
CPT/HCPCS: 20610; 73030; 99204; J1100; J2795; J3301

== ENCOUNTER → 2024-07-06 12:59 | Outpatient (BNVA) | payer MEDICAID, SELFPAY ==
[2024-05-04 11:35] VITALS: BP 128/81; BMI 33.3
== END ==
PROVIDERS: PCP Nurse Practitioner Family; Visit Provider Orthopaedic Surgery
DX: M54.12 Radiculopathy, cervical region (principal)
CPT/HCPCS: 72050; 99204

== ENCOUNTER → 2024-07-11 16:45 | Outpatient (BNVA) | payer MEDICAID, SELFPAY ==
[2024-05-04 11:35] VITALS: BP 128/81; BMI 33.3
== END ==
PROVIDERS: PCP Nurse Practitioner Family; Visit Provider Internal Medicine Cardiovascular Disease
DX: R06.02 Shortness of breath (principal)
CPT/HCPCS: 36415; 85378

== ENCOUNTER 2024-07-25 12:12 | Outpatient (CLI) | payer MEDICAID, SELFPAY ==
[2024-05-04 11:35] VITALS: BP 128/81; BMI 33.3
--- NOTE | 2024-07-25 12:30 | MR_ITS ---
WS: [id number] MRI CERVICAL SPINE NONCONTRAST HISTORY: Z98.1 - chronic neck pain down RIGHT arm. COMPARISON: None available. Technique: Multiplanar, multisequence noncontrast imaging of the cervical spine. Straightening of the normal cervical lordosis. Signal within the cord is normal. No marrow edema or fracture. Craniocervical junction, C1 and C2 relationship, odontoid process and soft tissues are normal. C2-C3: Moderate LEFT paracentral and proximal foraminal disc osteophyte. Mild effacement of LEFT lateral CSF. No high-grade stenosis. C3-C4: Normal. C4-C5: Mild annular disc bulging with osteophytic ridging encroaching upon the ventral thecal sac. Mild central and bilateral foraminal stenosis. C5-C6: Diffuse annular disc bulging with a central disc protrusion and osteophytic ridging. Bilateral foraminal osteophytes. Moderate to severe central and bilateral foraminal stenosis, LEFT greater than RIGHT. C6-C7: Diffuse disc bulging with osteophytic ridging and a central disc protrusion. Moderate central with minimal foraminal stenosis. C7-T1: No significant stenosis. Paraspinal soft tissue are normal. MR/MR cervical spin wo con* [id number] IMPRESSION: 1. Multilevel central and foraminal stenoses due to disc and osteophyte and fa cet arthropathy. 2. C2-3: Moderate LEFT paracentral and proximal foraminal disc osteophyte with out significant stenosis. 3. C4-5: Mild central and bilateral foraminal stenosis. 4. C5-6: Moderate to severe central with bilateral foraminal stenosis, LEFT gr eater than RIGHT. Central disc protrusion. 5. C6-7: Moderate central with minimal foraminal stenosis. There is a central disc protrusion.
== END 2024-07-25 12:13 | disposition home or self-care (01) ==
LOC: RAD 12:13
PROVIDERS: PCP Nurse Practitioner Family; Visit Provider Orthopaedic Surgery
DX: Z98.1 Arthrodesis status (principal); M54.12 Radiculopathy, cervical region; M48.02 Spinal stenosis, cervical region; M25.78 Osteophyte, vertebrae; M47.892 Other spondylosis, cervical region; M50.222 Other cervical disc displacement at C5-C6 level; M50.223 Other cervical disc displacement at C6-C7 level; R93.7 Abnormal findings on diagnostic imaging of other parts of musculoskeletal system; M50.321 Other cervical disc degeneration at C4-C5 level; M50.322 Other cervical disc degeneration at C5-C6 level; M50.323 Other cervical disc degeneration at C6-C7 level
CPT/HCPCS: 72141

== ENCOUNTER 2024-07-27 13:20 | Outpatient (CLI) | payer MEDICAID, SELFPAY ==
[2024-05-04 11:35] VITALS: BP 128/81; BMI 33.3
--- NOTE | 2024-07-27 14:00 | USCV_ITS ---
Gale Veloz Age: 53 Gender: F : 1970 Exam Date: 07/27/2024 13:38 Ordering Phys: Donta Garnett MD ([email or web address]) Technologist: R [place]am [place] [facility] [place]ication: bilateral leg pain HISTORY: Lower extremity pain. PROCEDURES: Venous duplex imaging was performed in bilateral lower extremities. The following venous structures were evaluated: common femoral vein, profunda vein, proximal portion of the greater saphenous vein, superficial femoral vein, and the popliteal vein. In addition, the posterior tibial and peroneal trunk were evaluated. FINDINGS: No evidence of DVT seen in any vessel visualized at this time. CONCLUSIONS No evidence of right lower extremity DVT. No evidence of left lower extremity DVT. Rubén Ambrocio MD (Electronically Signed) Final Date: 27 July 2024 16:42 S
== END 2024-07-27 13:21 | disposition home or self-care (01) ==
PROVIDERS: PCP Nurse Practitioner Family; Visit Provider Internal Medicine Cardiovascular Disease
DX: M79.604 Pain in right leg (principal); M79.605 Pain in left leg
CPT/HCPCS: 93970

== ENCOUNTER → 2024-07-31 13:41 | Outpatient (BNVA) | payer MEDICAID, SELFPAY ==
[2024-05-04 11:35] VITALS: BP 128/81; BMI 33.3
== END ==
PROVIDERS: PCP Nurse Practitioner Family; Visit Provider Nurse Practitioner
DX: M75.101 Unspecified rotator cuff tear or rupture of right shoulder, not specified as traumatic (principal); M19.011 Primary osteoarthritis, right shoulder; M54.12 Radiculopathy, cervical region
CPT/HCPCS: 99214

== ENCOUNTER 2024-08-03 10:11 | Outpatient (CLI) | payer MEDICAID, SELFPAY ==
[2024-05-04 11:35] VITALS: BP 128/81; BMI 33.3
--- NOTE | 2024-08-03 10:14 | CT_ITS ---
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 TOTAL EXAM DLP: 342.[address] scans at [facility] use at least one of these dose optimization techniques: automated exposure control; mA and/or kV adjustment per patient size (includes targeted exams where dose is matched to clinical indication); or iterative reconstruction. TECHNIQUE: Thin section axial CT scanning of the temporal bones with coronal and sagittal reconstructions. FINDINGS: Normal mastoids bilaterally. Normal internal auditory canals. Normal vestibules bilaterally. Normal semicircular canals bilaterally. Normal middle ear ossicles bilaterally. CT/CT temporal bone wo con* [id number] IMPRESSION: No significant abnormality of the temporal bones bilaterally.
== END 2024-08-03 10:12 | disposition home or self-care (01) ==
LOC: RAD 10:12
PROVIDERS: PCP Nurse Practitioner Family; Visit Provider Specialist
DX: M25.50 Pain in unspecified joint (principal); M47.812 Spondylosis without myelopathy or radiculopathy, cervical region; Z79.899 Other long term (current) drug therapy; H90.8 Mixed conductive and sensorineural hearing loss, unspecified; M47.897 Other spondylosis, lumbosacral region; M25.78 Osteophyte, vertebrae; M79.641 Pain in right hand; M77.31 Calcaneal spur, right foot; M19.019 Primary osteoarthritis, unspecified shoulder
CPT/HCPCS: 36415; 70480; 72100; 73130; 73630; 80076; 82565; 85025; 85651; 86140; 86200; 86431; 86480; 86704; 86803; 87340; 99204

== ENCOUNTER → 2024-08-10 12:32 | Outpatient (BNVA) | payer MEDICAID, SELFPAY ==
[2024-05-04 11:35] VITALS: BP 128/81; BMI 33.3
== END ==
PROVIDERS: PCP Nurse Practitioner Family; Visit Provider Orthopaedic Surgery
DX: Z09 Encounter for follow-up examination after completed treatment for conditions other than malignant neoplasm (principal)
CPT/HCPCS: 99213

== ENCOUNTER 2024-08-24 12:16 | Outpatient (CLI) | payer MEDICAID, SELFPAY ==
[2024-05-04 11:35] VITALS: BP 128/81; BMI 33.3
--- NOTE | 2024-08-24 13:00 | MR_ITS ---
WS: [id number] MRI RIGHT SHOULDER HISTORY: rotator cuff tear arthropathy of right shoulder COMPARISON: None available. TECHNIQUE: Multiplanar sequences of the shoulder joint are submitted. Mild AC joint arthropathy Hypertrophic bone formation with intermediate signal of the capsule. Moderate subacromial impingement. Downsloping of the acromion. No significant amount of fluid in subacromial or subdeltoid bursa. Normal position of the biceps tendon. No os acromion. No rotator cuff muscle atrophy or edema. Minimal supraspinatus tendinopathy. No tendon tear. There is marked narrowing of the coracohumeral interval secondary to osteophyte. There is encroachment upon the distal subscapularis tendon with fraying of the surface. No subscapularis tendon tear. There is fluid adjacent to the tendon and patient is at risk for rotator cuff tear. Infraspinatus and teres minor are normal. No joint effusion. No edema surrounding the inferior joint capsule to suggest adhesive capsulitis. Normal position of the humeral head at the glenoid. No labral tear. MR/MR shoulder RT wo con* [id number] IMPRESSION: 1. Mild AC joint arthropathy with mild osteophyte encroachment upon the supras pinatus tendon. 2. Moderate downsloping of the acromion with subacromial impingement. 3. Marked narrowing of the coracohumeral interval encroaching upon the distal subscapularis tendon. Fraying along the surfaces of the subscapularis tendon wi th intermediate signal. No tear at this time. 4. No labral tear. 5. Minimal supraspinatus tendinopathy.
== END 2024-08-24 12:17 | disposition home or self-care (01) ==
LOC: RAD 12:16
PROVIDERS: PCP Nurse Practitioner Family; Visit Provider Nurse Practitioner
DX: M19.011 Primary osteoarthritis, right shoulder (principal); R93.6 Abnormal findings on diagnostic imaging of limbs; M75.41 Impingement syndrome of right shoulder; M67.813 Other specified disorders of tendon, right shoulder; M89.311 Hypertrophy of bone, right shoulder; M25.711 Osteophyte, right shoulder
CPT/HCPCS: 73221

== ENCOUNTER 2024-08-29 05:00 | Outpatient (RCR) | payer MEDICAID, SELFPAY ==
[2024-05-04 11:35] VITALS: BP 128/81; BMI 33.3
== END 2024-09-27 23:59 | disposition home or self-care (01) ==
LOC: TPT 05:00
PROVIDERS: PCP Nurse Practitioner Family; Visit Provider Orthopaedic Surgery
DX: M54.2 Cervicalgia (principal); G89.29 Other chronic pain
CPT/HCPCS: 97110; 97161; 97530

== ENCOUNTER → 2024-09-18 16:39 | Outpatient (BNVA) | payer MEDICAID, SELFPAY ==
[2024-08-30 08:04] VITALS: BP 128/81; BMI 33.3
== END ==
PROVIDERS: PCP Nurse Practitioner Family; Visit Provider Nurse Practitioner
DX: M19.011 Primary osteoarthritis, right shoulder (principal); M19.019 Primary osteoarthritis, unspecified shoulder; M75.101 Unspecified rotator cuff tear or rupture of right shoulder, not specified as traumatic; M12.811 Other specific arthropathies, not elsewhere classified, right shoulder
CPT/HCPCS: 36415; 80053; 81001; 85025

== ENCOUNTER 2024-09-28 05:00 | Outpatient (RCR) | payer MEDICAID, SELFPAY ==
[2024-08-30 08:04] VITALS: BP 128/81; BMI 33.3
== END 2024-10-16 08:45 | disposition home or self-care (01) ==
LOC: TPT 05:00
PROVIDERS: PCP Nurse Practitioner Family; Visit Provider Orthopaedic Surgery
DX: M54.2 Cervicalgia (principal); G89.29 Other chronic pain
CPT/HCPCS: 97110; 97530

== ENCOUNTER → 2024-10-06 10:33 | Outpatient (BNVA) | payer MEDICAID, SELFPAY ==
[2024-08-30 08:04] VITALS: BP 128/81; BMI 33.3
== END ==
PROVIDERS: PCP Nurse Practitioner Family; Visit Provider Family Medicine
DX: Z01.818 Encounter for other preprocedural examination (principal)
CPT/HCPCS: 93005

== ENCOUNTER 2024-10-13 13:14 | Observation (INO) | payer MEDICAID, SELFPAY ==
[2024-08-30 08:04] VITALS: BP 128/81; BMI 33.3
[2024-10-13] VITALS (40 sets, daily range): BP systolic 95–145; BP diastolic 50–93; PULSE 88–113; RESP 16–30; TEMP 36.3–36.7; O2SAT 90–99; BMI 34.2
[2024-10-13 06:19] LABS: Glucose Point of Care 113 mg/dL (70-110)
[2024-10-13] MEDS: acetaminophen 1,000 MG/100 ML PIGGYBACK 400 MG IV (06:24)
[2024-10-13] MEDS: sodium chloride 0.9% 1,000 ML 30 ML IV (06:26)
--- NOTE | 2024-10-13 06:30 | ANES.PREANE2 ---
Pre-Anesthetic Assessment Height/Weight: Height 5 ft 2 in Weight 187 lb Temp Pulse Resp BP Pulse Ox O2 Del Method 97.4 F L 91 18 135/92 95 Room Air 10/13/24 06:00 10/13/24 06:00 10/13/24 06:00 10/13/24 06:00 10/13/24 06:00 10/13/24 06:00 Preop Diagnosis: Rotator cuff tear Operation Date: 10/13/24 07:00 Proposed Procedures p Distal Clavicle Resection(Right) - Alyse Hall MD s Acromioplasty Shoulder Acromioplasty(Right) - Alyse Hall MD s Debridement Upper Extremity(Right) - Alyse Hall MD Was Beta Tasia taken within 24 hours: N/A Was Clonidine taken within 24 hours: N/A Last intake: Intake Last Liquid Date 10/12/24 Last Liquid Time 23:30 Last Solid Date 10/12/24 Last Solid Time 20:00 Social No alcohol and No tobacco Exam alert, oriented x 3, clear to auscultation bilaterally and regular rate & rhythm Airway Submandibular: within normal limits Cervical ROM: within normal limits Mallampati: Class III Dentition: full Comments: Comments: Poor dentition Anesthetic Plan ASA status: 3 Anesthesia: General and Regional (specify below) Other: No prior issues with anesthesia NPO since yesterday evening History of YAIR with CPAP Type 2 diabetes, on dulaglutide. Last taken 10/06/2024 COPD/asthma, controlled with inhalers Echo 2021 showing EF of 55 to 60% Labs from 09/18/2024 reviewed and acceptable for procedure today Plan for general anesthesia with preoperative block Medications/Allergies Home Medications ?Medication ?Instructions ?Recorded ?Confirmed ?Last Taken ?Type blood sugar diagnostic (Blood #100 ea 09/03/20 10/01/24 Unknown Rx Glucose Test strips) blood-glucose meter (Blood Glucose #1 ea 09/03/20 10/01/24 Unknown Rx Monitoring kit) lancets 33 gauge (BD Ultra Fine #100 ea 09/03/20 10/01/24 Unknown Rx Lancets) pen needle, diabetic 32 gauge x #100 ea 05/02/21 10/01/24 Unknown Rx aspirin 81 mg tablet,delayed 81 mg PO DAILY 07/21/21 10/11/24 10/06/24 History release blood sugar diagnostic (OneTouch #50 ea 03/06/22 10/01/24 Unknown Rx Ultra Test strips) nitroglycerin 0.4 mg sublingual 0.4 mg sublingual Q5M PRN Chest 06/15/22 10/11/24 10/06/24 Rx tablet (Nitrostat) Pain #25 tabs fluticasone propionate 50 2 spray intranasal DAILY 12 months 09/16/22 10/11/24 10/06/24 Rx mcg/actuation nasal #16 grams spray,suspension metformin 500 mg tablet 1,000 mg PO BID 12/27/22 10/11/24 10/06/24 History oxybutynin chloride 10 mg 10 mg PO DAILY 12/27/22 10/11/24 10/06/24 History tablet,extended release 24 hr Diabetic shoes with 3 pairs of #1 ea 01/25/23 10/01/24 Unknown Rx inserts acetaminophen 325 mg capsule 325 mg PO Q4H PRN fever or pain 02/17/23 10/11/24 Unknown Rx #60 caps polyethylene glycol 3350 17 See Rx Instructions .Route 11/16/23 10/11/24 10/06/24 Rx gram/dose oral powder .COMPLEX #510 grams albuterol sulfate 2.5 mg/3 mL 2.5 mg (3 mL) inhalation QID PRN 12/23/23 10/11/24 10/06/24 Rx (0.083 %) solution for nebulization shortness of breath or wheezing #180 mL albuterol sulfate 90 mcg/actuation 2 puff inhalation Q6H PRN 12/23/23 10/11/24 10/06/24 Rx aerosol inhaler shortness of breath or wheezing #16 grams fluticasone 500 mcg-salmeterol 50 1 inh inhalation BID #60 ea 12/23/23 10/11/24 10/06/24 Rx mcg/dose blistr powdr for inhalation (Advair Diskus) nebulizers #1 ea 12/23/23 10/01/24 Unknown Rx tiotropium bromide 18 mcg capsule 1 cap inhalation DAILY #90 12/23/23 10/11/24 10/06/24 Rx with inhalation device (Spiriva inhalations with HandiHaler) diabetic shoes with 3 inserts #1 ea 02/15/24 10/01/24 Unknown Rx ondansetron 4 mg disintegrating 4 mg PO Q8H PRN nausea and 05/20/24 10/11/24 10/06/24 Rx tablet vomiting #14 tabs hydroxychloroquine 200 mg tablet 200 mg PO BID #60 tabs 08/03/24 10/11/24 10/06/24 Rx (Plaquenil) fluoxetine 20 mg/5 mL (4 mg/mL) 80 mg (20 mL) PO .q am #600 mL 09/14/24 10/11/24 10/06/24 Rx oral solution mupirocin 2 % topical ointment 1 applic topical TID 7 days #15 10/01/24 10/11/24 10/06/24 Rx (Centany) grams dulaglutide 0.75 mg/0.5 mL 0.75 mg SUBCUT Q7D 10/06/24 10/11/24 10/06/24 History subcutaneous pen injector (Trulicity) Allergies Allergy/AdvReac Type Severity Reaction Status Date / Time raspberry Allergy Severe closes up Verified 10/13/24 05:59 throat venom-wasp Allergy Severe ALGY-Anaphy Verified 10/13/24 05:59 laxis codeine Allergy ALGY-Difficulty Verified 10/13/24 05:59 Breathing Penicillins Allergy ALGY-Rash Verified 10/13/24 05:59 Sulfa (Sulfonamide Allergy ALGY-Rash Verified 10/13/24 05:59 Antibiotics) Current Medications Generic Name Dose Route Start Last Admin Trade Name Freq PRN Reason Stop Dose Admin Sodium Chloride 1,000 mls @ 30 mls/hr 10/13/24 05:45 10/13/24 06:26 Sodium Chloride 0.9% IV 10/14/24 05:44 30 mls/hr .Q24H HUA Administration PFSH Anesthesia Medical History Tendinopathy of right shoulder Impingement of right shoulder High risk medication use DJD (degenerative joint disease) of cervical spine Polyarthralgia GERD (gastroesophageal reflux disease) Diabetes mellitus, controlled Psychiatric care YAIR (obstructive sleep apnea) Major depressive disorder, recurrent, moderate Depression COPD (chronic obstructive pulmonary disease) CVA (cerebral vascular accident) Surgical History Status post cervical spinal fusion History of anterior colporrhaphy (~02/16/23) Anterior colporrhaphy augmented with allograft, single incision mid urethral sling, cystoscopy. Performed by [facility]. History of colonoscopy History of tubal ligation Hx of oophorectomy H/O laparoscopy H/O: hysterectomy History of cholecystectomy Family History Father CAD (coronary artery disease) Cancer Diabetes Hyperlipidemia Mother Hypertension Psychiatric illness Brother Hypertension Social History Smoking and tobacco/nicotine status: never used tobacco/nicotine Second hand smoke exposure: Yes Alcohol intake: current Alcohol intake frequency: holidays/special occasions only Alcohol type: other Substance/Drug Use: never Adopted: No Caregiver/support person: No Lives independently: Yes Household members: friend(s) Housing: Apartment Marital status: Number of children: 3 Number of grandchildren: 7 Highest education level completed: High School Graduate service: No Current occupational status: unemployed and other Details: daughter comes to help her Current occupational exposures/hazards: No Pets and animals: Yes (3 tiny dogs) Pets & animals: dog(s) Leisure activites: art and other Leisure activities details: watch TV Sexually active: No Do you think of yourself as: Straight/Heterosexual Current gender identity: Female Merced/Zoroastrianism: Buddhist Special merced needs: No Agree to transfusion: No (Jehova's Witness) Female Reproductive History Para: 3 Spontaneous abortions: Yes (X 3) Data Anesthesia Cardiac Studies: Echocardiogram 08/12/21 Sestamibi Stress Test (Cardiology) 11/24/19
[2024-10-13] MEDS: famotidine 20 mg/2 mL INJ IVP (06:41)
[2024-10-13] MEDS: ondansetron 2 mg/ML SDV 2 mL 4 MG IVP (06:41)
--- NOTE | 2024-10-13 06:50 | ANES.PROC ---
Anesthesia Procedures Procedure/Date: 10/13/24 Nerve Block ^: Nerve Block 1: Main Anesthesia: other (100 mcg fentanyl and 2 mg Versed) Time Out Performed: Yes Consent: requested by attending/covering physician Nerve block location: interscalene Anesthesia monitors applied: pulse oximetry, EKG, BP cuff and oxygen Nerve block position: supine Anesthetic Used: ropivicaine 0.5% Amount of anesthesia used (mL): 30 Ultrasound used to: recognize landmarks Nerve Stimulator Used?: Yes Interscalene/Femoral BLK: other needle (pjunk 4inch) Injection: neg aspiration of heme Patient Tolerated Procedure: well Complications: none
[2024-10-13] MEDS: ceFAZolin 2,000 mg SDV 2000 MG IVP (07:03)
[2024-10-13] MEDS: ceFAZolin 1,000 mg SDV 1000 MG IRRIGATION (07:40)
--- NOTE | 2024-10-13 08:02 | PC.NURSE ---
0659- Interscaline block performed by anesthesiologist TIMOTEO using ultrasound guidance and injected 30mL 0.5% Ropivacaine. Pt tolerated well. VS monitored.
--- NOTE | 2024-10-13 08:38 | PM.OP ---
Operative Report Date of procedure: October 13, 2024 Pre-op diagnosis: Right shoulder impingement with resulting tendinopathy and osteoarthritis of the acromioclavicular joint Post-op diagnosis: Right shoulder impingement with resulting tendinopathy, osteoarthritis of the acromioclavicular joint, and bursitis Post-op findings: Significant bursitis and rotator cuff tendinitis with severe compression from the lateral acromion. Also, expanded distal clavicle consistent with acromioclavicular osteoarthritis Procedure done: Right acromioplasty with distal clavicle resection and bursal debridement Implants: None Specimens removed/disposition: Bursa, bone, both disposed of Pathology: None Surgeon: Alyse Hall MD Recovery Collector: Erinn Colin, nurse practitioner, whose services were required for positioning, draping, retraction, closure, and completion of the surgical procedure Anesthesia: General (Intubated, ASA 3) Estimated blood loss (mL): 20 IV fluids (mL): 400 Urine output (mL): 0 (No Thapa) Complications: None Findings: Significant compression from the anterolateral aspect of the acromion, bursitis, and acromioclavicular joint narrowing with osteoarthritis. Condition: stable Disposition: PACU (Then return to same-day surgery for discharge to home) Brief History: This 53-year-old woman presented to the office complaining of right shoulder pain. She also had some evidence of cervical radiculopathy. MRI demonstrated acromioclavicular joint arthropathy with downsloping of the acromion and subacromial impingement. There is also marked narrowing of the cortical humeral interval. There was no labral or rotator cuff tear. After discussion in the office, and lack of response to nonoperative interventions, patient wished to proceed with surgical intervention. Risks and complications were discussed with her. Consents were signed and questions were answered. The patient was given further opportunity on the day of surgery to ask questions and discussed the surgical procedure. Procedure: The patient was brought to the operating theater and underwent general intubated, ASA 3 anesthesia with supplemental interscalene block. The patient was placed in a beachchair position and subsequently the right upper extremity was prepped and draped in the usual fashion utilizing DuraPrep. The arm was draped free. A surgical pause was performed prior to commencement of the surgical procedure. At the time of the surgical pause, we confirmed the site and side of surgery as well as administration of appropriate preoperative antibiotics, Ancef 2 g. MRI was also reviewed at that time. Following the surgical pause, an incision was made at approximately the level of the acromioclavicular joint extending across the anterolateral corner of the acromion and distally as necessary. Care was taken to avoid injury to the axillary nerve by limiting the distal extent of the incision. Dissection continued through skin and soft tissues using a scalpel. Hemostasis was obtained using electrocautery. Soft tissues were elevated off the acromion. An acromioplasty was then accomplished using a combination of a saw and a power rasp. With this, we were able to remove compression caused by the acromion. The rotator cuff was then evaluated to look for tears. There was no evidence of tear within the rotator cuff, but there was significant bursitis. Bursal resection was accomplished. The shoulder was again placed through full range of motion to assure there was no evidence of rotator cuff tear. The acromioclavicular joint was exposed. A saw was then used to resect the distal clavicle without difficulty. The undersurface of the clavicle was palpated and was slightly further debrided. A power rasp was used to further smooth the area. When this was felt to be adequately resected, the wound was irrigated. Attention was then directed to closure. The wound was irrigated and closure was accomplished with 0 Vicryl in the capsular tissues overlying the acromioclavicular joint area as well as over the acromion and down into the deltoid muscle. 3-0 Monocryl was used to close the subcutaneous tissues followed by 4-0 Monocryl subcuticular closure. This was followed by Dermabond, Steri-Strips, and OpSite. The patient was placed in a sling and was returned to the recovery room in satisfactory condition. The patient will be discharged to home to follow-up in the office as scheduled. There were no complications and no specimens. Related Problem List Diagnoses (1) Impingement of right shoulder: (2) Osteoarthritis of acromioclavicular joint: (3) Tendinopathy of right shoulder:
[2024-10-13] MEDS: ipratropium-albuterol 3 mL Neb INHALATION ×3 (09:33→21:09)
--- NOTE | 2024-10-13 10:07 | XR_ITS ---
WS: [id number] Exam: XR chest 1V portable [id number] Date/Time of Exam: 10/13/2024 10:10 AM Reason For Exam: post op hypoxia Comparison 07/21/2023. There is elevation of the RIGHT diaphragm which may be secondary to atelectasis of the middle and lower lobes of the RIGHT lung. Bronchial obstruction might be a consideration. There is RIGHT perihilar infiltrate and atelectasis. The LEFT lung is fully inflated and clear. Heart size is normal. The mediastinum is normal in contour. No pneumothorax. Monitoring leads superimpose the chest. XR/XR chest 1V portable [id number] IMPRESSION: 1. Elevation of the RIGHT diaphragm which is a new finding. This could be secon maria del carmen to RIGHT middle and lower lobe atelectasis secondary to bronchial obstruct ion. RIGHT perihilar infiltrate and atelectatic change noted.
--- NOTE | 2024-10-13 10:50 | ECG_ITS ---
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 Measurements Intervals [place] Rate: 106 P: 50 DE: 144 QRS: 45 QRSD: 86 T: 112 QT: 344 QTc: 457 Interpretive Statements SINUS TACHYCARDIA T-WAVE ABNORMALITY, CONSIDER ANTEROLATERAL ISCHEMIA [-0.1+ mV T-WAVE IN V3-V6] Compared to ECG 10/06/2024 10:44:28 Possible ischemia now present Sinus rhythm no longer present T-wave abnormality still present Electronically Signed On 10-14-2024 13:07:16 CDT by Leland oMntes De Oca M.D. [email or web address]
[2024-10-13] MEDS: morphine 4 mg/mL SDV 1 mL IVP ×2 (11:20→11:55)
--- NOTE | 2024-10-13 11:44 | P.PN_ITS ---
Subjective Subjective: Patient was initially struggling with hypoxia in PACU. Placed on facemask initially and given a DuoNeb treatment which did help improve oxygen saturation mildly. Mild coarse breath sounds heard on the right side in PACU. Patient was initially very sleepy and would obstruct which led to multiple episodes of hypoxia. Upon waking up more patient started complaining of sternal chest pain and tightness. Chest x-ray performed which showed expected right elevated hemidiaphragm but also demonstrated right sided atelectasis with a right perihilar infiltrate. Twelve-lead EKG was performed which shows previous T wave abnormality. Spoke with Dr. Montes De Oca and he agreed after looking at EKGs. Dec ision was made to give patient 325 mg of aspirin as well as morphine. D-dimer and stat troponins were ordered. No concerns for aspiration as airway was secured in intubation was smooth. Differential diagnosis includes PE, NSTEMI, atelectasis, and pneumonia. Spoke with admitting physician and answered all questions. Vitals/I&O/Wt Last Vital Signs Temp 98.0 F 10/13/24 09:52 Pulse 103 H 10/13/24 11:00 Resp 26 H 10/13/24 11:20 BP 128/90 10/13/24 11:00 Pulse Ox 93 10/13/24 11:20 O2 Del Method Nasal Cannula 10/13/24 11:00 O2 Flow Rate 2 10/13/24 11:00 10/12/24 10/13/24 10/13/24 22:59 06:59 14:59 Intake Total 100 / 100 450 / 450 Output Total 20 / 20 Balance 100 / 100 430 / 430 Weight last 48 hrs Weight 187 lb Physical Exam Const: COMMON NORMALS: alert Resp: COMMON NORMALS: clear to auscultation bilaterally AUSCULTATION: clear to auscultation bilaterally Neuro: SENSORIUM/ORIENTATION: Yes alert A&P Assessment and plan (1) Impingement of right shoulder: (2) Osteoarthritis of acromioclavicular joint: (3) Tendinopathy of right shoulder: PDMP PDMP Reviewed: Not Reviewed Attestations Medical Necessity Statement*: Postop hypoxia and chest pain Coding Level of Care Code Acute Code for [facility] Fwd Diagnoses Impingement of right shoulder M25.811 Osteoarthritis of acromioclavicular joint M19.019 Tendinopathy of right shoulder M67.917
[2024-10-13] MEDS: aspirin 325 mg Tablet PO (12:06)
[2024-10-13 12:38] LABS: D Dimer 0.54 ug/mLFEU (0-0.59)
[2024-10-13 12:41] LABS: Troponin T (5th) Once < 6 ng/L (0-10)
--- NOTE | 2024-10-13 12:53 | P.HP_ITS ---
Providers/Chief Complaint 2 Primary Care Provider: JEFFERY Boone Chief Complaint: M19.019 History of Present Illness Gale Veloz is a 53 year old female with a history of asthma, recent pneumonia/bronchitis (treated with antibiotics at the end of August), and swallowing difficulties presents after left shoulder surgery. The procedure was reportedly uncomplicated with no major blood loss (EBL 20mL), but the patient had difficulty waking from anesthesia and required supplemental oxygen intraoperatively and postoperatively. The patient reports persistent chest pain (not described as pressure or 'elephant on chest'), ongoing left arm and leg pain (new since surgery), and shortness of breath. The patient has a chronic cough, usually attributed to asthma, and recently completed antibiotics for pneumonia/bronchitis, which improved symptoms but required continued breathing treatments due to chest tightness. The patient describes chronic swallowing difficulties, with a history of esophageal dilation (EGD with balloon stretch) in August, and continues to choke occasionally on food and sometimes on water. The patient denies vomiting, diarrhea, or rashes, but reports constipation managed with Miralax or Clearlax. There is a history of trauma to the right side chest from a stair railing 6-7 months ago, resulting in persistent pain with coughing or stretching. She denies any recent choking episodes, her, her roommate states that she does choke up and cough with drinking water. She has trouble swallowing pills. Per discussion with anesthesia there was no regurgitation or aspiration during intubation. EKG has been obtained and discussed with cardiology. Chest x-ray has been obtained showing elevation of right hemidiaphragm, possible right middle lower lobe atelectasis. D-dimer has been obtained. CBC and BMP are requested. The patient denies black stools, blood in stool, or dark urine. No history of smoking, rare alcohol use, and no illicit drug use. The patient uses multiple inhalers and a nebulizer for asthma, and CPAP at night for sleep apnea. The patient lives with a friend and has dogs at home. Family history notable for father with similar swallowing issues requiring regular esophageal dilation. The patient is alert, oriented, and able to make decisions, with daughter listed as emergency contact. Denies fever, chills, or recent upper respiratory symptoms. Denies chronic runny nose or congestion. Denies current urge to cough beyond what is prompted. Denies current vomiting or diarrhea. The patient has a history of genital herpes, with recent recurrence about a week ago, treated with topical medication. No current outbreak. Review of Systems 2 Const: Denies: fever(s), chills, body aches or malaise ENMT: Denies: throat pain Card: Reports: chest pain; Denies: edema, pre-syncope or dyspnea on exertion Resp: Reports: dyspnea GI: Denies: abdominal pain, nausea, vomiting, diarrhea, constipation, hematochezia or melena : Denies: flank pain, urinary frequency or hematuria Musc: Reports: extremity pain; Denies: back pain, joint swelling or joint redness Skin/Breast: Denies: rash or new lesions Neuro: Denies: headache(s) or confusion Medications/Allergies Home Medications ?Medication ?Instructions ?Recorded ?Confirmed ?Last Taken ?Type pen needle, diabetic 32 gauge x #100 ea 05/02/2110/13 Unknown Rx aspirin 81 mg tablet,delayed 81 mg PO DAILY 07/21/21 0 10/11/24 10/06/24 History release nitroglycerin 0.4 mg sublingual 0.4 mg sublingual Q5M PRN Chest 06/15/22 10/11/24 10/06/24 Rx tablet (Nitrostat) Pain #25 tabs fluticasone propionate 50 2 spray intranasal DAILY 12 months 09/16/22 10/11/24 10/06/24 Rx mcg/actuation nasal #16 grams spray,suspension metformin 500 mg tablet 1,000 mg PO BID 12/27/2210/06/24 History oxybutynin chloride 10 mg 10 mg PO DAILY 12/27/2209/2810/06/24 History tablet,extended release 24 hr acetaminophen 325 mg capsule 325 mg PO Q4H PRN fever o r pain 02/17/23 10/11/24 Unknown Rx #60 caps polyethylene glycol 3350 17 See Rx Instructions .Route 11/16/23 10/11/24 10/06/24 Rx gram/dose oral powder .COMPLEX #510 grams albuterol sulfate 2.5 mg/3 mL 2.5 mg (3 mL) inhalation QID PRN 12/23/23 10/11/24 10/06/24 Rx (0.083 %) solution for nebulization shortness of breat h or wheezing #180 mL albuterol sulfate 90 mcg/actuation 2 puff inhalation Q 6H PRN 12/23/23 10/11/24 10/06/24 Rx aerosol inhaler shortness of breath or wheez ing #16 grams fluticasone 500 mcg-salmeterol 50 1 inh inhalation BID #60 ea 12/23/23 10/11/24 10/06/24 Rx mcg/dose blistr powdr for inhalation (Advair Diskus) tiotropium bromide 18 mcg capsule 1 cap inhalation RAYMUNDO LY #90 12/23/23 10/11/24 10/06/24 Rx with inhalation device (Spiriva inhalations with HandiHaler) ondansetron 4 mg disintegrating 4 mg PO Q8H PRN nausea and 05/20/24 10/11/24 10/06/24 Rx tablet vomiting #14 tabs hydroxychloroquine 200 mg tablet 200 mg PO BID #60 tab s 08/03/24 10/11/24 10/06/24 Rx (Plaquenil) fluoxetine 20 mg/5 mL (4 mg/mL) 80 mg (20 mL) PO .q am #600 mL 09/14/24 10/11/24 10/06/24 Rx oral solution mupirocin 2 % topical ointment 1 applic topical TID 7 days #15 10/01/24 10/11/24 10/06/24 Rx (Centany) grams dulaglutide 0.75 mg/0.5 mL 0.75 mg SUBCUT Q7D 10/06/24 10/11/24 10/06/24 History subcutaneous pen injector (Trulicity) hydrocodone 5 mg-acetaminophen 325 1 tab PO Q4H PRN pa in 7 days #30 10/13/24 Unknown Rx mg tablet tabs Allergies Allergy/AdvReac Type Severity Reaction Status Date / Time raspberry Allergy Severe closes up Verified 10/13/24 05:59 throat venom-wasp Allergy Severe ALGY-Anaphy Verified 10/13/24 05:59 laxis codeine Allergy ALGY-Difficulty Verified 10/13/24 05:59 Breathing Penicillins Allergy ALGY-Rash Verified 10/13/24 05:59 Sulfa (Sulfonamide Allergy ALGY-Rash Verified 10/13/24 05:59 Antibiotics) PFSH Acute 2 PFSH: Medical History Tendinopathy of right shoulder Impingement of right shoulder High risk medication use DJD (degenerative joint disease) of cervical spine Polyarthralgia GERD (gastroesophageal reflux disease) Diabetes mellitus, controlled Psychiatric care YAIR (obstructive sleep apnea) Major depressive disorder, recurrent, moderate Depression COPD (chronic obstructive pulmonary disease) CVA (cerebral vascular accident) Surgical History Status post cervical spinal fusion History of anterior colporrhaphy (~02/16/23) Anterior colporrhaphy augmented with allograft, single incision mid urethral sling, cystoscopy. Performed by [facility]. History of colonoscopy History of tubal ligation Hx of oophorectomy H/O laparoscopy H/O: hysterectomy History of cholecystectomy Family History Father CAD (coronary artery disease) Cancer Diabetes Hyperlipidemia Mother Hypertension Psychiatric illness Brother Hypertension Social History Smoking and tobacco/nicotine status: never used tobacco/nicotine Second hand smoke exposure: Yes Alcohol intake: current Alcohol intake frequency: holidays/special occasions only Alcohol type: other Substance/Drug Use: never Adopted: No Caregiver/support person: No Lives independently: Yes Household members: friend(s) Housing: Apartment Marital status: Number of children: 3 Number of grandchildren: 7 Highest education level completed: High School Graduate service: No Current occupational status: unemployed and other Details: daughter comes to help her Current occupational exposures/hazards: No Pets and animals: Yes (3 tiny dogs) Pets & animals: dog(s) Leisure activites: art and other Leisure activities details: watch TV Sexually active: No Do you think of yourself as: Straight/Heterosexual Current gender identity: Female Merced/Adventist: Mormon Special merced needs: No Agree to transfusion: No (Jehova's Witness) Female Reproductive History: Para: 3 Spontaneous abortions: Yes (X 3) Vitals/I&O/Wt Last Vital Signs Temp 97.6 F 10/13/24 11:17 Pulse 104 H 10/13/24 12:30 Resp 26 H 10/13/24 12:30 BP 113/77 10/13/24 12:30 Pulse Ox 93 10/13/24 12:30 O2 Del Method Nasal Cannula 10/13/24 12:30 O2 Flow Rate 2 10/13/24 12:30 FiO2 2 10/13/24 11:17 10/12/24 10/13/24 10/13/24 22:59 06:59 14:59 Intake Total 100 / 100 1471 / 1471 Output Total 20 / 20 Balance 100 / 100 1451 / 1451 Weight last 48 hrs Weight 84.822 kg Physical Exam 2 Narrative: Accompanied by her roommate. Const: COMMON NORMALS: patient oriented x3 and alert GENERAL APPEARANCE: c ooperative ORIENTATION/CONSCIOUSNESS: Yes awake HENMT: COMMON NORMALS: oropharynx normal Neck/C-Spine: COMMON NORMALS: no JVD Resp: COMMON NORMALS: normal respiratory effort and clear to auscultation bilaterally AUSCULTATION: crackles Laterality: right Cardio: COMMON NORMALS: no JVD, regular rhythm, S1 normal heart sound present, S2 normal heart sound present and No murmurs present (Cardio) RHYTHM: regular rhythm HEART SOUNDS: S1 normal heart sound present and S2 normal heart sound present GI: COMMON NORMALS: Normal to inspection, nondistended, normoactive bowel sounds present, Soft to palpation and non-tender PALPATION: Yes Soft to palpation Extremity: COMMON NORMALS: no joint enlargement and no pedal edema N ARRATIVE EXTREMITY EXAM: Postoperative dressing right shoulder. Neuro: COMMON NORMALS: patient oriented x3 and moves all extremities S ENSORIUM/ORIENTATION: Yes alert Skin: COMMON NORMALS: no rashes or lesions noted GENERAL SKIN EXAM: no rashes or lesions noted Data 10/13/24 14:49 10/13/24 14:49 A&P Assessment and plan (1) Hypoxia: Developed hypoxemia and chest pain after left shoulder surgery per discussion with orthopedic surgeon and anesthesiologist, requiring supplemental oxygen intraoperatively and postoperatively. EKG performed. Chest pain is not described as classic angina. Differential includes cardiac etiology, pulmonary embolism, atelectasis, or aspiration. She had an injury with persistent pain months ago, but this was to the right chest wall. Chest x-ray with elevated right hemidiaphragm, possible atelectasis of right middle and lower lobe (bronchial plug?). She does have history of oropharyngeal dysphagia, has required multiple balloon dilation procedures 1 was done in August. On review of charts prior MBS with noted dysphagia. Roommate states that she does choke up on the water intermittently. Possible aspiration pneumonitis versus pneumonia. Requested CBC and chemistry, started empiric antibiotics for now with ceftriaxone azithromycin. Requested speech therapy evaluation, for now empirically soft diet and mildly thickened liquids. Requested Mucinex, flutter valve, chest vest for airway clearance, breathing treatments, incentive spirometer. Repeat chest x-ray for the morning. Per anesthesia some of the hemidiaphragm alternatively could be secondary to the interscalene block she received preoperatively and should resolve. Requested repeat troponin, although less likely cardiac. Reviewed vitals, CBC, D-dimer, BMP, orthopedic note, discussed with orthopedic surgeon, anesthesiology. - Monitor oxygen requirements and clinical status - Obtain blood counts to assess for infection or aspiration pneumonia - Empiric antibiotic for now pending reassessment with ceftriaxone, azithromycin, monitor for risk of allergic reaction with history of penicillin allergy. - D-dimer ordered to evaluate for possible pulmonary embolism; if elevated, consider CT scan - Continue cardiac workup as discussed with cardiology - Monitor for improvement; reassess tomorrow (2) Chest pain: When waking up complaining of central chest pain/discomfort. Persistent oxygen requirement. EKG was obtained and she send EKG was discussed with cardiology by anesthesia and felt to be less unlikely cardiac. D-dimer was obtained, not suggestive of PE. Requested follow up troponin and EKG. Monitor on telemetry. Plan History of asthma : Chronic asthma with use of multiple inhalers and nebulizer. Chronic cough, no acute exacerbation reported. No chronic steroid use currently. - Continue home inhalers and nebulizer as needed - Monitor for respiratory distress or worsening symptoms Recent pneumonia/bronchitis (possible incomplete resolution or new pneumonia/aspiration) : Recent pneumonia/bronchitis treated with antibiotics at end of August, improved but with persistent chest tightness and cough. Current imaging shows right diaphragm elevation and possible atelectasis. Concern for possible aspiration due to swallowing difficulties. - Monitor white blood cell count for infection - Consider empiric antibiotics if infection suspected - Monitor for signs of aspiration pneumonia Chronic swallowing difficulties (esophageal stricture) : History of esophageal stricture, status post EGD with dilation in August. Ongoing intermittent choking on food and water. No current specialist follow-up. Family history of similar issue in father. - Consider speech therapy consult to assess swallowing and recommend dietary modifications - Encourage small bites and soft foods as tolerated Constipation : Chronic constipation managed with Miralax or Clearlax. No current vomiting, diarrhea, or GI bleeding. - Continue bowel regimen as needed Genital herpes (history, not active) : History of genital herpes with recent outbreak treated with topical medication. No current lesions. - Continue to use topical medication as needed for outbreaks - Maintain hygiene practices as described PDMP PDMP Reviewed: Not Reviewed Attestations 2 Medical Necessity Statement*: Please observation for additional assessment of management following new hypoxia, chest discomfort after right shoulder surgery with history of oropharyngeal dysphagia, asthma, recent pneumonia/bronchitis, additional comorbidities as above. and High MDM includes amount and/or complexity of data reviewed/ordered [ previous or external records, resulted lab(s)/test(s), ordered lab(s)/test(s), independent historian and other healthcare professional discussion] and described risk of complication, morbidity or mortality of management as documented Diagnoses Hypoxia R09.02 Chest pain R07.9 Chest pain type: unspecified
--- NOTE | 2024-10-13 13:46 | ANE.PACU2 ---
Inpatient post-anesthesia follow up: Airway intact: Yes Vital signs: Temperature 97.5 F Pulse Rate 99 Respiratory Rate 16 Blood Pressure 145/77 Pulse Oximetry 91 Oxygen Delivery Me thod Room Air Oxygen Flow Rate 1 Fraction of Inspir ed Oxygen 1 Hydration adequate: Yes Nausea and vomiting: No Pain level: 3 Mental status: Baseline Additional Comments: Patient required admission. Please refer to progress note for further details
--- NOTE | 2024-10-13 13:53 | PC.NURSE ---
Pt AOx4 upon transferring to floor. Report given to weigh and charge worker- TACTICAL INTELLIGENCE OFFICER and CNO at bedside to receive pt. Pt belongings with pt. VS taken.
[2024-10-13] MEDS: cefTRIAXone 1,000 mg SDV 1000 MG IVP (15:05)
[2024-10-13] MEDS: AZITHROMYCIN ADD-Vantage 500 MG in 0.9% NaCl ADD-Vantage 250 ML 250 MG IV (15:06)
[2024-10-13 15:09] LABS: Basophils % 0.4 %; Hematocrit 42.8 % (36-47); Lymphocytes # 0.8 10^3/uL (0.8-4.8); Lymphocytes % 7.4 %; Mean Corpuscular HGB Conc 31.8 g/dL (30-55); Mean Corpuscular Hemoglobin 28.5 pg (27-33); Mean Corpuscular Volume 89.5 fl (85-98); Mean Platelet Volume 10.2 fL (7.4-10.4); Monocytes # 0.2 10^3/uL (0.2-0.9); Monocytes % 1.7 %; Neutrophils # 9.94 10^3/uL (1.8-7.7); Nucleated Red Blood Cells % 0 %; Platelet Count 266 10^3/cmm (157-399); Red Blood Count 4.78 10^6/uL (3.85-5.65); White Blood Count 11.04 10^3/uL (3.29-11.43)
[2024-10-13] MEDS: guaiFENesin 600 mg Tablet 1200 MG PO ×2 (15:20→17:53)
[2024-10-13 15:28] LABS: Anion Gap 17.8 (5-19); Blood Urea Nitrogen 10 mg/dL (6-20); Carbon Dioxide 21 mmol/L (22-29); Chloride 103 mmol/L (98-107); Creatinine Clr Calc Pharmacy 94.9675; Glomerular Filtration Rate 87.9 mL/min (90-130); Glucose 193 mg/dL (65-115); Osmolality Calculated 290 mOsm/kg (285-295); Potassium 3.8 mmol/L (3.5-5.1); Sodium 138 mmol/L (136-145)
--- NOTE | 2024-10-13 18:00 | ECG_ITS ---
[facility] Test Date: 2024-10-13 Pat Name: Gale Veloz Department: Room: 253 Gender: Female Turbo Operator: : 1970 Requested By: Juan José De La Rosa Order Number: [id number] Sohail MD: Leland Montes De Oca M.D. Measurements Intervals [place] Rate: 106 P: 53 OK: 156 QRS: 46 QRSD: 85 T: 60 QT: 338 QTc: 449 Interpretive Statements SINUS TACHYCARDIA MODERATE T-WAVE ABNORMALITY, CONSIDER ANTEROLATERAL ISCHEMIA [-0.1+ mV T-WAVE IN V3-V6] Compared to ECG 10/13/2024 10:56:36 No significant changes Electronically Signed On 10-14-2024 12:15:52 CDT by Leland Montes De Oca M.D. [email or web address]
[2024-10-13 18:55] LABS: Troponin T (5th) Once < 6 ng/L (0-10)
[2024-10-13 21:13] LABS: Glucose Point of Care 301 mg/dL (70-110)
--- NOTE | 2024-10-13 21:16 | PC.NURSE ---
Patient's blood sugar this evening is 301. Patient does not have a sliding scale ordered at this time. Dr. Poe notified. Physician ordered to give 7 units of Humalog one time.
[2024-10-13] MEDS: insulin lispro 100 unit/1 mL 7 UNIT SUBCUT (21:32)
[2024-10-14] VITALS (13 sets, daily range): BP systolic 115–150; BP diastolic 61–80; PULSE 86–111; RESP 15–20; TEMP 36.5–37; O2SAT 91–96
[2024-10-14] MEDS: ipratropium-albuterol 3 mL Neb INHALATION ×4 (01:08→20:34)
[2024-10-14] MEDS: acetaminophen 325 mg Tablet 650 MG PO ×2 (01:29→09:39)
[2024-10-14 01:35] LABS: Glucose Point of Care 197 mg/dL (70-110)
[2024-10-14 05:25] LABS: Basophils % 0.2 %; Hematocrit 39.6 % (36-47); Lymphocytes # 1.6 10^3/uL (0.8-4.8); Mean Corpuscular HGB Conc 31.8 g/dL (30-55); Mean Corpuscular Hemoglobin 28.5 pg (27-33); Mean Corpuscular Volume 89.6 fl (85-98); Mean Platelet Volume 10.2 fL (7.4-10.4); Monocytes # 1.8 10^3/uL (0.2-0.9); Neutrophils # 14.25 10^3/uL (1.8-7.7); Neutrophils % 80.3 %; Nucleated Red Blood Cells % 0 %; Platelet Count 275 10^3/cmm (157-399); Red Blood Count 4.42 10^6/uL (3.85-5.65); Red Cell Distribution Width 13.2 % (12.1-15.1); White Blood Count 17.75 10^3/uL (3.29-11.43)
[2024-10-14 05:51] LABS: Blood Urea Nitrogen 11 mg/dL (6-20); Calcium 8.8 mg/dL (8.5-10.5); Carbon Dioxide 22 mmol/L (22-29); Chloride 105 mmol/L (98-107); Creatinine Clr Calc Pharmacy 99.4104; Glomerular Filtration Rate 87.9 mL/min (90-130); Glucose 187 mg/dL (65-115); Osmolality Calculated 292 mOsm/kg (285-295); Sodium 139 mmol/L (136-145)
--- NOTE | 2024-10-14 06:00 | XRR_ITS ---
PROCEDURE INFORMATION: Exam: XR Chest Exam date and time: 10/14/2024 10:37 AM Age: 53 years old Clinical indication: Shortness of breath; Additional info: Hypoxia, reassess R hemidiaphragm elevation and rml and rll TECHNIQUE: Imaging protocol: Radiologic exam of the chest. Views: 1 view. COMPARISON: CR XR chest 1V portable [id number] 10/13/2024 10:12 AM FINDINGS: Lungs: Right basilar consolidation is slightly increased. Elevated right hemidiaphragm again noted. Pleural spaces: Unremarkable. No pleural effusion. No pneumothorax. Heart/Mediastinum: Unremarkable. No cardiomegaly. Bones/joints: Unremarkable. XR/XR chest 1V portable [id number] IMPRESSION: Right basilar consolidation.
[2024-10-14 07:21] LABS: Glucose Point of Care 154 mg/dL (70-110)
[2024-10-14] MEDS: oxybutynin chloride XL 5 MG TABLET 10 MG PO (09:39)
[2024-10-14] MEDS: aspirin 81 mg EC Tablet PO (09:39)
[2024-10-14] MEDS: guaiFENesin 600 mg Tablet 1200 MG PO ×2 (09:39→17:18)
[2024-10-14] MEDS: polyethylene glycol 3350 Pkt 17 gm PO ×2 (09:39→20:58)
--- NOTE | 2024-10-14 10:44 | PC.CHAP ---
Pastoral Care Encounter/Spiritual Assessment Type of Contact [x] Declined gill net stringer visit [] Patient/Family/Request visit [] Outpatient visit [] Follow-up visit [] Physician referral [] Code/Alert [] Routine visit [] Staff referral [] Actively dying [] Patient sleeping [] Family support [] [] Out of room [] Palliative care [] [] Receiving care in room [] Pre-surgical visit [] Trauma [] Long length of stay [] ICU visit [] Other: Relational/Emotional Strength [] Patient feels connected with others/family/visitors/staff [x] Distress [] Loneliness/isolation [] Abandonment Spirituality of Patient [] Person of [place] [] Attends Quaker of their [place] [] Believes in Prayer [] Reads Bible or Sabianist materials [] There are Spiritual issues to be addressed Therapy Site Coordinator Interventions [] Prayer [] Active listening [] Non-anxious presence [] Spiritual/emotional support [] Crisis/trauma care [] Spiritual counseling [] Bereavement support [] Provided bereavement packet [] Provided Bible/devotional materials [] Provided toy/stuffed animal, coloring book to patient or family member [] Provided Communion [] Anointing/[place] [] Salvation [] Completed spiritual assessment [] Other: Impact on Illness or Injury [] Angry [] Fearful [] Anxious [] Often cries [] Exhaustion [] Unable to work [] Unable to attend anabaptism [] Unable to walk/stand [] Unable to read [] Unable to drive [] Unable to eat/drink [] Unable to sleep [] Unable to be with family [] Patient intubated [] Other: Summary Time spent with patient
--- NOTE | 2024-10-14 12:25 | P.PN_ITS ---
Subjective 2 Subjective: Patient seen sitting at edge of bed eating breakfast. Patient seen sitting on edge of bed eating breakfast. Patient still having difficulty swallowing. She is asking for IV pain medicine for her right shoulder. Otherwise she takes her antidepressant via liquid. We discussed crushing medications and she is willing to try crushed pain medic occasion Vitals/I&O/Wt Last Vital Signs Temp 98.6 F 10/14/24 11:43 Pulse 86 10/14/24 11:43 Resp 16 10/14/24 11:43 BP 150/75 10/14/24 11:43 Pulse Ox 96 10/14/24 11:43 O2 Del Method Nasal Cannula 10/14/24 11:43 O2 Flow Rate 2.5 10/14/24 08:00 FiO2 1 10/13/24 13:18 10/13/24 10/14/24 10/14/24 22:59 06:59 14:59 Intake Total 730 / 2201 240 / 240 Balance 730 / 2181 240 / 240 Weight last 48 hrs Weight 92.306 kg Weight 84.822 kg Weight 84.822 kg Physical Exam 2 Narrative: Patient alert and oriented heart regular normal S1-S2 without murmurs clicks gallops or rubs lungs inspiratory and expiratory rhonchi in the right lower lobe with diminished breath sounds otherwise clear without wheezing abdomen obese soft nontender nondistended positive bowel sounds extremities right shoulder in sling no significant lower extremity edema Data 10/14/24 05:04 10/14/24 05:04 A&P Assessment and plan (1) Hypoxia: secondary to PNA on rocecphin and zithromax. likely aspiration post op. (2) Depression, major, recurrent, mild: cont home med (3) Impingement of right shoulder: s/p Right acromioplasty with distal clavicle resection and bursal debridement (4) Obesity (BMI 30.0-34.9): (5) YAIR (obstructive sleep apnea): (6) Diabetes type 2, uncontrolled: Plan Continue antibiotics reeducated on incentive spirometer and deep breathing. Continue Mucinex and neb treatments with respiratory therapy. Chest pain resolved. History of asthma was recently treated with antibiotics at the end of August esophageal stricture status post EGD with balloon dilatation in August PDMP PDMP Reviewed: Not Reviewed Attestations 2 Medical Necessity Statement*: Please observation for additional assessment of management following new hypoxia, chest discomfort after right shoulder surgery with history of oropharyngeal dysphagia, asthma, recent pneumonia/bronchitis, additional comorbidities as above. Coding Level of Care Code Acute Code for Chg Fwd Diagnoses Hypoxia R09.02 Depression, major, recurrent, mild F33.0 Impingement of right shoulder M25.811 Obesity (BMI 30.0-34.9) E66.9 YAIR (obstructive sleep apnea) G47.33 Diabetes type 2, uncontrolled
[2024-10-14] MEDS: fluticasone nasal spray 16gm Btl 2 SPRAY INTRANASAL (13:12)
[2024-10-14] MEDS: AZITHROMYCIN ADD-Vantage 500 MG in 0.9% NaCl ADD-Vantage 250 ML 250 MG IV (13:12)
[2024-10-14] MEDS: cefTRIAXone 1,000 mg SDV 1000 MG IVP (13:13)
--- NOTE | 2024-10-14 14:15 | P.CONIM_ITS ---
Providers/Reason For Consult 2 Consulting Physician/Specialty*: Anesthesia team Reason for Consult*: Chest pain Requesting Physician: Dr. Cedillo Attending Physician: Juan Miguel Finley DO Primary Care Provider: JEFFERY Boone History of Present Illness History of Present Illness Gale Veloz is a 53 year old female who underwent right shoulder surgery yesterday and after the surgery she was complaining of shortness of air and intermittent chest pain she was found to be hypoxic and requiring oxygen supplement. The EKG showed nonspecific T wave changes in the anteroseptal leads. Clinically chest pain was at rest, sharp in character and increases with inspiration. According to patient she had a pneumonia about 2 weeks ago prior to the surgery and since after the pneumonia she has not been well and intermittent getting sharp chest pains and shortness of air. The serial EKG showed T wave changes in the anterior leads with no further change. The cardiac troponin test is also negative. Currently patient is chest pain-free and no shortness of air at rest however she still continues to require 2 L of oxygen supplement via nasal cannula. Chest x-ray showed abnormality on the right side likely due to atelectasis of right lower and middle lobe. Review of Systems 2 Narrative: Detailed 10 point systemic review is unremarkable except for as mentioned above in the history of present illness. No history of exertional angina or heart failure symptoms. Medications/Allergies Home Medications ?Medication ?Instructions ?Recorded ?Confirmed ?Last Taken ?Type pen needle, diabetic 32 gauge x #100 ea 05/02/2110/13 Unknown Rx aspirin 81 mg tablet,delayed 81 mg PO DAILY 07/21/21 0 10/11/24 10/06/24 History release nitroglycerin 0.4 mg sublingual 0.4 mg sublingual Q5M PRN Chest 06/15/22 10/11/24 10/06/24 Rx tablet (Nitrostat) Pain #25 tabs fluticasone propionate 50 2 spray intranasal DAILY 12 months 09/16/22 10/11/24 10/06/24 Rx mcg/actuation nasal #16 grams spray,suspension metformin 500 mg tablet 1,000 mg PO BID 12/27/2210/06/24 History oxybutynin chloride 10 mg 10 mg PO DAILY 12/27/2209/2810/06/24 History tablet,extended release 24 hr acetaminophen 325 mg capsule 325 mg PO Q4H PRN fever o r pain 02/17/23 10/11/24 Unknown Rx #60 caps polyethylene glycol 3350 17 See Rx Instructions .Route 11/16/23 10/11/24 10/06/24 Rx gram/dose oral powder .COMPLEX #510 grams albuterol sulfate 2.5 mg/3 mL 2.5 mg (3 mL) inhalation QID PRN 12/23/23 10/11/24 10/06/24 Rx (0.083 %) solution for nebulization shortness of breat h or wheezing #180 mL albuterol sulfate 90 mcg/actuation 2 puff inhalation Q 6H PRN 12/23/23 10/11/24 10/06/24 Rx aerosol inhaler shortness of breath or wheez ing #16 grams fluticasone 500 mcg-salmeterol 50 1 inh inhalation BID #60 ea 12/23/23 10/11/24 10/06/24 Rx mcg/dose blistr powdr for inhalation (Advair Diskus) tiotropium bromide 18 mcg capsule 1 cap inhalation RAYMUNDO LY #90 12/23/23 10/11/24 10/06/24 Rx with inhalation device (Spiriva inhalations with HandiHaler) ondansetron 4 mg disintegrating 4 mg PO Q8H PRN nausea and 05/20/24 10/11/24 10/06/24 Rx tablet vomiting #14 tabs hydroxychloroquine 200 mg tablet 200 mg PO BID #60 tab s 08/03/24 10/11/24 10/06/24 Rx (Plaquenil) fluoxetine 20 mg/5 mL (4 mg/mL) 80 mg (20 mL) PO .q am #600 mL 09/14/24 10/11/24 10/06/24 Rx oral solution mupirocin 2 % topical ointment 1 applic topical TID 7 days #15 10/01/24 10/11/24 10/06/24 Rx (Centany) grams dulaglutide 0.75 mg/0.5 mL 0.75 mg SUBCUT Q7D 10/06/24 10/11/24 10/06/24 History subcutaneous pen injector (Trulicity) hydrocodone 5 mg-acetaminophen 325 1 tab PO Q4H PRN pa in 7 days #30 10/13/24 Unknown Rx mg tablet tabs Allergies Allergy/AdvReac Type Severity Reaction Status Date / Time raspberry Allergy Severe closes up Verified 10/13/24 05:59 throat venom-wasp Allergy Severe ALGY-Anaphy Verified 10/13/24 05:59 laxis codeine Allergy ALGY-Difficulty Verified 10/13/24 05:59 Breathing Penicillins Allergy ALGY-Rash Verified 10/13/24 05:59 Sulfa (Sulfonamide Allergy ALGY-Rash Verified 10/13/24 05:59 Antibiotics) Current Medications Generic Name Dose Route Start Last Admin Trade Name Freq PRN Reason Stop Dose Admin Acetaminophen 650 mg 10/13/24 12:55 10/14/24 09:39 Acetaminophen 325 Mg Tablet PO 650 mg Q6H PRN Administration Mild/Mod Pain Or Temp >/= 101 Albuterol/Ipratropium 3 ml 10/13/24 14:00 10/14/24 13:39 Ipratropium-Albuterol 3 Ml Neb INHALATION 3 ml Q6H.RESP HUA Administration Aspirin 81 mg 10/14/24 09:00 10/14/24 09:39 Aspirin 81 Mg Ec Tablet PO 81 mg DAILY HUA Administration Ceftriaxone Sodium 1,000 mg 10/13/24 13:15 10/14/24 13:13 Ceftriaxone 1,000 Mg Sdv IVP 1,000 mg Q24H HUA Administration Protocol Fluticasone Propionate 2 spray 10/14/24 12:30 10/14/24 13:12 Fluticasone Nasal [place] 16gm Btl INTRANASAL 2 spray DAILY HUA Administration Guaifenesin 1,200 mg 10/13/24 13:15 10/14/24 09:39 Guaifenesin 600 Mg Tablet PO 1,200 mg BID HUA Administration Azithromycin 500 mg/ Sodium 250 mls @ 250 mls/hr 10/13/24 13:15 10/14/24 13:12 Chloride IV 250 mls/hr Q24H HUA Administration Protocol Oxybutynin Chloride 10 mg 10/14/24 09:00 10/14/24 09:39 Oxybutynin Chloride Xl 5 Mg Tablet PO 10 mg DAILY HUA Administration Polyethylene Glycol 17 gm 10/14/24 09:00 10/14/24 09:39 Polyethylene Glycol 3350 Pkt 17 Gm PO 17 gm DAILY HUA Administration PFSH Acute 2 PFSH: Medical History Tendinopathy of right shoulder Impingement of right shoulder High risk medication use DJD (degenerative joint disease) of cervical spine Polyarthralgia GERD (gastroesophageal reflux disease) Diabetes mellitus, controlled Psychiatric care YAIR (obstructive sleep apnea) Major depressive disorder, recurrent, moderate Depression COPD (chronic obstructive pulmonary disease) CVA (cerebral vascular accident) Surgical History Status post cervical spinal fusion History of anterior colporrhaphy (~02/16/23) Anterior colporrhaphy augmented with allograft, single incision mid urethral sling, cystoscopy. Performed by [facility]. History of colonoscopy History of tubal ligation Hx of oophorectomy H/O laparoscopy H/O: hysterectomy History of cholecystectomy Family History Father CAD (coronary artery disease) Cancer Diabetes Hyperlipidemia Mother Hypertension Psychiatric illness Brother Hypertension Social History Smoking and tobacco/nicotine status: never used tobacco/nicotine Second hand smoke exposure: Yes Alcohol intake: current Alcohol intake frequency: holidays/special occasions only Alcohol type: other Substance/Drug Use: never Adopted: No Caregiver/support person: No Lives independently: Yes Household members: friend(s) Housing: Apartment Marital status: Number of children: 3 Number of grandchildren: 7 Highest education level completed: High School Graduate service: No Current occupational status: unemployed and other Details: daughter comes to help her Current occupational exposures/hazards: No Pets and animals: Yes (3 tiny dogs) Pets & animals: dog(s) Leisure activites: art and other Leisure activities details: watch TV Sexually active: No Do you think of yourself as: Straight/Heterosexual Current gender identity: Female Merced/Hindu: Temple Special merced needs: No Agree to transfusion: No (Jehova's Witness) Female Reproductive History: Para: 3 Spontaneous abortions: Yes (X 3) Vitals/I&O/Wt Last Vital Signs Temp 98.6 F 10/14/24 11:43 Pulse 99 10/14/24 13:42 Resp 18 10/14/24 13:40 BP 150/75 10/14/24 11:43 Pulse Ox 95 10/14/24 13:40 O2 Del Method Nasal Cannula 10/14/24 13:40 O2 Flow Rate 2 10/14/24 13:42 FiO2 1 10/13/24 13:18 10/13/24 10/14/24 10/14/24 22:59 06:59 14:59 Intake Total 730 / 2201 240 / 240 Balance 730 / 2181 240 / 240 Weight last 48 hrs Weight 203 lb 8 oz Weight 187 lb Weight 187 lb Physical Exam 2 Const: COMMON NORMALS: no acute distress and patient oriented x3 (Grossly intact. Patient moves all 4 limbs.) HENMT: COMMON NORMALS: normocephalic HEAD & SCALP: normocephalic OTHER: Unremarkable Resp: OTHER: Decreased air entry at the right base. Otherwise unremarkable. Cardio: OTHER: Normal 1st and 2nd heart sounds. No added sounds. GI: OTHER: Soft nontender abdomen. Bowel sounds audible. Extremity: OTHER: Unremarkable extremities. No lower extremity edema. Neuro: COMMON NORMALS: patient oriented x3 (Grossly intact. Patient moves all 4 limbs.) Skin: OTHER: Warm and dry. Data 10/14/24 05:04 10/14/24 05:04 A&P Assessment and plan (1) Chest pain: 53-year-old female patient is status post right shoulder surgery who developed hypoxia, shortness of air and typical pleuritic chest pain. Clinical history not suggestive of angina. The ECG showed an T wave changes in the anteroseptal leads. Serial ECGs continue to have the similar abnormality. The cardiac troponin test was normal. Clinically the chest pain symptoms are not consistent with angina or [place]. Clinically no heart failure symptoms. Currently patient is chest pain-free and no shortness of air at rest. The likely cause of her symptoms is underlying low respiratory tract infection/pneumonia and atelectasis related to the same. Recommendation: No further cardiac workup at this stage. Further management as per medical hospitalist team. PDMP PDMP Reviewed: Not Reviewed Coding Level of Care Code 47833 Diagnoses Chest pain R07.9 Chest pain type: unspecified Time Spent (min) 25
[2024-10-14] MEDS: metformin 500 mg Tablet 1000 MG PO (17:18)
[2024-10-14] MEDS: budesonide 0.5 mg/2 mL Neb INHALATION (20:34)
[2024-10-14] MEDS: benzonatate 100 mg Capsule 200 MG PO (20:58)
[2024-10-14] MEDS: lactulose oral liq 20 gm/30 mL UDC PO (20:58)
[2024-10-15] VITALS (10 sets, daily range): BP systolic 134–157; BP diastolic 64–89; PULSE 87–105; RESP 18–22; TEMP 36.5–36.8; O2SAT 83–98
[2024-10-15] MEDS: acetaminophen 325 mg Tablet 650 MG PO (00:28)
[2024-10-15] MEDS: ipratropium-albuterol 3 mL Neb INHALATION ×2 (01:21→07:43)
[2024-10-15 05:48] LABS: Basophils # 0.1 10^3/uL (0.0-0.1); Basophils % 0.4 %; Eosinophils % 0.2 %; Hematocrit 39.5 % (36-47); Lymphocytes # 3.2 10^3/uL (0.8-4.8); Lymphocytes % 27.6 %; Mean Corpuscular HGB Conc 32.2 g/dL (30-55); Mean Corpuscular Hemoglobin 28.9 pg (27-33); Mean Platelet Volume 10.6 fL (7.4-10.4); Monocytes # 1.1 10^3/uL (0.2-0.9); Monocytes % 9.5 %; Neutrophils # 7.12 10^3/uL (1.8-7.7); Neutrophils % 61.5 %; Nucleated Red Blood Cells % 0 %; Platelet Count 275 10^3/cmm (157-399); Red Blood Count 4.39 10^6/uL (3.85-5.65); Red Cell Distribution Width 13.6 % (12.1-15.1); White Blood Count 11.57 10^3/uL (3.29-11.43)
[2024-10-15] MEDS: budesonide 0.5 mg/2 mL Neb INHALATION (07:42)
[2024-10-15] MEDS: polyethylene glycol 3350 Pkt 17 gm PO (09:24)
[2024-10-15] MEDS: aspirin 81 mg EC Tablet PO (09:24)
[2024-10-15] MEDS: metformin 500 mg Tablet 1000 MG PO (09:24)
[2024-10-15] MEDS: oxybutynin chloride XL 5 MG TABLET 10 MG PO (09:24)
[2024-10-15] MEDS: guaiFENesin 600 mg Tablet 1200 MG PO (09:24)
[2024-10-15] MEDS: fluticasone nasal spray 16gm Btl 2 SPRAY INTRANASAL (09:25)
--- NOTE | 2024-10-15 11:40 | P.DS_ITS ---
Discharge Providers Date of Admission: 10/13/24 13:14 Date of Discharge: October 15, 2024 Attending Provider at Admission: Juan José De La Rosa Attending Provider at Discharge: Juan Miguel Finley DO Primary Care Provider: JEFFERY Boone Diagnoses at Discharge Discharge Diagnosis (1) Chest pain: Status: Acute Qualifiers: Chest pain type: unspecified Qualified Code(s): R07.9 - Chest pain, unspecified Reason for Visit Reason for Visit: M19.019 Hospital Course Hospital Course Patient underwent right acromioplasty with distal clavicular resection and bursal debridement on 10/13/2024. Subsequently she developed hypoxia and chest pain. Patient was assessed by hospitalist and admitted for same. Patient was found to have a right lower lobe pneumonia and placed on IV antibiotics. For the chest pain workup ensued which was negative cardiology did see the patient due to abnormal EKG without change. Her chest pain was reprodu cible and felt to be due to pneumonia After my visit with patient on 10/14/2024 patient was instructed on proper use of incentive spirometer with deep breaths and Acapella. She showed marked rib impr ovement by 10/15/2024. She no longer required oxygen at rest however she did require oxygen with exertion which is new. She will be sent home with oxygen for exertion and on IV antibiotics. Physical Exam Narrative: Patient alert and oriented heart regular normal S1-S2 without murmurs clicks gallops or rubs lungs improved aeration with just scattered rhonchi in the right lower lobe, no wheeze abdomen obese soft nontender nondistended positive bowel sounds extremities right shoulder in sling no significant lower extremity edema Discharge Data Studies Completed and Pending Completed Studies During Hospitalization Category Date Time Status XR chest 1V portable [id number] Routine Exams 10/14/24 06:00 Completed XR chest 1V portable [id number] Stat Exams 10/13/24 10:07 Completed Radiology Impressions Chest X-Ray 10/14/24 06:00 IMPRESSION: Right basilar consolidation. Laboratory Results WBC 11.57 10^3/uL (3.29-11.43) H 10/15/24 04:56 RBC 4.39 10^6/uL (3.85-5.65) 10/15/24 04:56 Hgb 12.70 g/dL (11.27-16.99) 10/15/24 04:56 Hct 39.5 % (36-47) 10/15/24 04:56 MCV 90.0 fl (85-98) 10/15/24 04:56 MCH 28.9 pg (27-33) 10/15/24 04:56 MCHC 32.2 g/dL (30-55) 10/15/24 04:56 RDW 13.6 % (12.1-15.1) 10/15/24 04:56 Plt Count 275 10^3/cmm (157-399) 10/15/24 04:56 MPV 10.6 fL (7.4-10.4) H 10/15/24 04:56 Neut % (Auto) 61.5 % 10/15/24 04:56 Lymph % (Auto) 27.6 % 10/15/24 04:56 [place] % (Auto) 9.5 % 10/15/24 04:56 Eos % (Auto) 0.2 % 10/15/24 04:56 Baso % (Auto) 0.4 % 10/15/24 04:56 Neut # (Auto) 7.12 10^3/uL (1.8-7.7) 10/15/24 04:56 Lymph # (Auto) 3.2 10^3/uL (0.8-4.8) 10/15/24 04:56 [place] # (Auto) 1.1 10^3/uL (0.2-0.9) H 10/15/24 04:56 Eos # (Auto) 0.0 10^3/uL (0.0-0.8) 10/15/24 04:56 Baso # (Auto) 0.1 10^3/uL (0.0-0.1) 10/15/24 04:56 Nucleated RBC % (auto) 0 % 10/15/24 04:56 Nucleated RBCs # 0.0 /100WBC 10/15/24 04:56 D-Dimer 0.54 ug/mLFEU (0-0.59) 10/13/24 11:45 Sodium 139 mmol/L (136-145) 10/14/24 05:04 Potassium 4.0 mmol/L (3.5-5.1) 10/14/24 05:04 Chloride 105 mmol/L (98-107) 10/14/24 05:04 Carbon Dioxide 22 mmol/L (22-29) 10/14/24 05:04 Anion Gap 16.0 (5-19) 10/14/24 05:04 BUN 11 mg/dL (6-20) 10/14/24 05:04 Creatinine 0.7 mg/dL (0.5-0.9) 10/14/24 05:04 GFR Calculation 87.9 mL/min (90-130) L 10/14/24 05:04 Glucose 187 mg/dL (65-115) H 10/14/24 05:04 POC Glucose 154 mg/dL (70-110) H 10/14/24 06:36 Calculated Osmolality 292 mOsm/kg (285-295) 10/14/24 05:04 Calcium 8.8 mg/dL (8.5-10.5) 10/14/24 05:04 Troponin T 5th Gen ng/L < 6 ng/L (0-10) 10/13/24 18:19 Vitals Last Vital Signs Temp 97.9 F 10/15/24 07:25 Pulse 90 10/15/24 07:50 Resp 18 10/15/24 07:44 BP 157/64 10/15/24 07:25 Pulse Ox 96 10/15/24 07:44 O2 Del Method Nasal Cannula 10/15/24 07:44 O2 Flow Rate 2 10/15/24 07:44 FiO2 1 10/13/24 13:18 Discharge Plan Discharge Patient Disposition: Home Condition: Stable Prescriptions: New hydrocodone-acetaminophen 5-325 mg tablet 1 tab PO Q4H PRN (Reason: pain) 7 Days Qty: 30 0RF hydrocodone-acetaminophen 5-325 mg Tablet 1 tab PO Q4H PRN (Reason: Moderate Pain) Qty: 10 0RF benzonatate 100 mg Capsule 200 mg PO TID PRN (Reason: Cough) Qty: 60 0RF fluticasone propionate 50 mcg/actuation [place],Suspension 2 spray intranasal DAILY Qty: 1 0RF guaifenesin [Mucinex] 600 mg Tablet Extended Release 12hr 1,200 mg PO BID Qty: 60 0RF azithromycin [Zithromax] 500 mg tablet 500 mg PO DAILY 6 Days Qty: 6 0RF cefdinir 300 mg capsule 300 mg PO BID Qty: 12 0RF Continued nitroglycerin [Nitrostat] 0.4 mg tablet, sublingual 0.4 mg SUBLINGUAL Q5M PRN (Reason: Chest Pain) Qty: 25 3RF fluticasone propionate 50 mcg/actuation spray,suspension 2 spray intranasal DAILY 360 Days Qty: 16 11RF Rx Instructions: administer into each nostril fluticasone propion-salmeterol [Advair Diskus] 500-50 mcg/dose blister with device 1 inh inhalation BID Qty: 60 3RF Spiriva with HandiHaler 18 mcg capsule, w/inhalation device 1 cap INHALATION DAILY Qty: 90 3RF Rx Instructions: puncture 1 cap using device; one dose = 2 inhalations albuterol sulfate 90 mcg/actuation HFA aerosol inhaler 2 puff inhalation Q6H PRN (Reason: shortness of breath or wheezing) Qty: 16 0RF albuterol sulfate 2.5 mg /3 mL (0.083 %) solution for nebulization 2.5 mg inhalation QID PRN (Reason: shortness of breath or wheezing) Qty: 180 2RF mupirocin [Centany] 2 % ointment 1 applic topical TID 7 Days Qty: 15 0RF hydroxychloroquine [Plaquenil] 200 mg tablet 200 mg PO BID Qty: 60 4RF fluoxetine 20 mg/5 mL (4 mg/mL) solution 80 mg PO .q am Qty: 600 3RF Rx Instructions: Take 80 mg daily (20 ml) once daily every morning Trulicity 0.75 mg/0.5 mL pen injector 0.75 mg SUBCUT Q7D (DME) pen needle, diabetic 32 gauge x 5/32 needle See Rx Instructions .Route Qty: 100 3RF Rx Instructions: As directed polyethylene glycol 3350 17 gram/dose powder See Rx Instructions .ROUTE .COMPLEX Qty: 510 1RF Dose Instruction: MIX 17 GRAMS OF POWDER IN 8 OUNCES OF LIQUID AND DRINK ONCE DAILY Rx Instructions: MIX 17 GRAMS OF POWDER IN 8 OUNCES OF LIQUID AND DRINK ONCE DAILY aspirin 81 mg Tablet,Delayed Release (Dr/Ec) 81 mg PO DAILY metformin 500 mg tablet 1,000 mg PO BID oxybutynin chloride 10 mg tablet extended release 24hr 10 mg PO DAILY acetaminophen 325 mg capsule 325 mg PO Q4H PRN (Reason: fever or pain) Qty: 60 0RF ondansetron 4 mg tablet,disintegrating 4 mg PO Q8H PRN (Reason: nausea and vomiting) Qty: 14 0RF Discharge Orders: Discharge Order (Routine); Ordered 10/15/24 Ordered By: Juan Miguel Finley Referrals: Suzette Bowman FNP [Primary Care Provider, Unknown] - 1 week Alyse Hall MD [Physician, Orthopedics] - 10/30/24 3:00 pm Discharge Diet: Advance as tolerated and Usual diet Discharge Activity: Increase activity as tolerated and Limit activity as instructed Patient Instructions: Acute Wound Care (DC), Opioid Safety, Post Anesthesia Care Activity Restrictions/Additional Instructions: Wear your sling until you are seen in the office. You may remove it for showering. You may get your shoulder wet but do not soak it in water such as to go floating. No heavy lifting. You may range your elbow wrist and fingers. Leave dressing in place unless it lifts up and begins to leak water at which time you may remove it. 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 may take omnicef again 8 hours apart and then twice a day. use oxygen with exertion. expect that you will improve over next few weeks. Discharge Attestations Time Spent in Discharge Care*: greater than 30 min Quality Metrics Clinical Quality Measures [ No reported AMI, CVA or VTE this stay] Coding Level of Care Code Acute Code for Chg Fwd Diagnoses Chest pain R07.9 Chest pain type: unspecified
== END 2024-10-15 13:25 | disposition home or self-care (01) ==
LOC: MEDSURG 13:15
PROVIDERS: Specialist; Student in an Organized Health Care Education/Training Program; Admitting Provider Internal Medicine; PCP Nurse Practitioner Family; Visit Provider Internal Medicine
PROC: (CPT 23120; principal; 2024-10-13 07:00)
PROC: (CPT 23130; 2024-10-13 07:00)
PROC: (CPT 29824; 2024-10-13 07:00)
DX: J18.9 Pneumonia, unspecified organism (principal); M25.811 Other specified joint disorders, right shoulder; M67.911 Unspecified disorder of synovium and tendon, right shoulder; M19.011 Primary osteoarthritis, right shoulder; Z79.82 Long term (current) use of aspirin; Z79.84 Long term (current) use of oral hypoglycemic drugs; K21.9 Gastro-esophageal reflux disease without esophagitis; G47.33 Obstructive sleep apnea (adult) (pediatric); J44.9 Chronic obstructive pulmonary disease, unspecified; E11.9 Type 2 diabetes mellitus without complications; Z86.73 Personal history of transient ischemic attack (TIA), and cerebral infarction without residual deficits; Z82.49 Family history of ischemic heart disease and other diseases of the circulatory system; R09.02 Hypoxemia; E66.89 Other obesity not elsewhere classified; Z68.38 Body mass index [BMI] 38.0-38.9, adult; F33.0 Major depressive disorder, recurrent, mild
CPT/HCPCS: 29824; 29826; 36415; 36416; 71045; 80048; 82962; 84484; 85025; 85378; 92610; 93005; 94640; 94669; 94760; 96372; A7003; G0378; J0131; J0456; J0690; J0696; J1100; J1815; J2270; J2405; J2704; J3010; J3490; J7030; J7050; J7626; J9999

== ENCOUNTER → 2024-10-30 14:58 | Outpatient (BNVA) | payer MEDICAID, SELFPAY ==
[2024-08-30 08:04] VITALS: BP 128/81; BMI 33.3
== END ==
PROVIDERS: PCP Nurse Practitioner Family; Visit Provider Nurse Practitioner
DX: Z98.890 Other specified postprocedural states (principal)
CPT/HCPCS: 99024

== ENCOUNTER → 2024-11-09 13:11 | Outpatient (BNVA) | payer MEDICAID, SELFPAY ==
[2024-08-30 08:04] VITALS: BP 128/81; BMI 33.3
== END ==
PROVIDERS: PCP Nurse Practitioner Family; Visit Provider Orthopaedic Surgery
DX: M54.12 Radiculopathy, cervical region (principal)
CPT/HCPCS: 99213

== ENCOUNTER 2024-11-10 08:54 | Outpatient (CLI) | payer MEDICAID, SELFPAY ==
[2024-08-30 08:04] VITALS: BP 128/81; BMI 33.3
[2024-11-10 09:50] LABS: Estmated Average Glucose 114; Hemoglobin A1C 5.6 % (4.0-6.0)
[2024-11-10 09:58] LABS: Creatinine Urine, Random 96 mg/dL (28-217); Microalbum Creatinine Ratio Ur 10 mg/dL (0-20); Microalbumin Random Urine 1 ug/dL (0-20)
[2024-11-10 10:01] LABS: Alanine Aminotransferase 17 U/L (0-33); Albumin Level 3.8 g/dL (3.5-5.2); Alkaline Phosphatase 110 U/L (35-105); Aspartate Amino Transferase 16 U/L (0-32); Blood Urea Nitrogen 10 mg/dL (6-20); Calcium 8.9 mg/dL (8.5-10.5); Carbon Dioxide 22 mmol/L (22-29); Chloride 108 mmol/L (98-107); Chol HDL Ratio 6.59 mg/dL (0.0-4.40); Cholesterol 178 mg/dL (0-200); Globulin 3.2 g/dL (1.3-4.6); Glomerular Filtration Rate 87.9 mL/min (90-130); Glucose 140 mg/dL (65-115); HDL Cholesterol 27 mg/dL (60-100); LDL Cholesterol Calculated 93 mg/dL (50-129); LDL HDL Ratio 3.44 RATIO (0.00-3.22); Osmolality Calculated 293 mOsm/kg (285-295); Sodium 141 mmol/L (136-145); Total Bilirubin 0.3 mg/dL (0.15-1.2); Triglycerides 288 mg/dL (0-150)
[2024-11-10 10:02] LABS: Anion Gap 14.6 (5-19); Potassium 3.6 mmol/L (3.5-5.1)
[2024-11-10 10:17] LABS: 25 Hydroxy Vitamin D 18 ng/mL (30-100); Vitamin B12 710 pg/mL (232-1245)
== END 2024-11-10 08:55 | disposition home or self-care (01) ==
LOC: LAB 08:55
PROVIDERS: PCP Nurse Practitioner Family; Visit Provider Internal Medicine
DX: E11.9 Type 2 diabetes mellitus without complications (principal); E78.5 Hyperlipidemia, unspecified; E55.9 Vitamin D deficiency, unspecified
CPT/HCPCS: 36415; 80053; 80061; 82044; 82306; 82607; 83036

== ENCOUNTER → 2024-11-21 09:18 | Outpatient (BNVA) | payer MEDICAID, SELFPAY ==
[2024-11-17 11:14] VITALS: BP 119/60; BMI 35.1
== END ==
PROVIDERS: PCP Nurse Practitioner Family; Visit Provider Internal Medicine Rheumatology
DX: M47.812 Spondylosis without myelopathy or radiculopathy, cervical region (principal); Z79.899 Other long term (current) drug therapy; M06.041 Rheumatoid arthritis without rheumatoid factor, right hand; M06.042 Rheumatoid arthritis without rheumatoid factor, left hand
CPT/HCPCS: 99214

== ENCOUNTER → 2024-11-27 09:25 | Outpatient (BNVA) | payer MEDICAID, SELFPAY ==
[2024-11-17 11:14] VITALS: BP 119/60; BMI 35.1
== END ==
PROVIDERS: PCP Nurse Practitioner Family; Visit Provider Nurse Practitioner
DX: Z98.890 Other specified postprocedural states (principal)
CPT/HCPCS: 99213

== ENCOUNTER 2024-12-05 21:58 | Emergency (ER) | payer MEDICAID, SELFPAY ==
[2024-11-17 11:14] VITALS: BP 119/60; BMI 35.1
--- NOTE | 2024-12-05 22:08 | ECG_ITS ---
[email or web address] [facility] Test Date: 2024-12-05 Pat Name: Gale Veloz Department: Room: Gender: Female Clinical Quality Analyst: : 1970 Requested By: Kyle Maya Order Number: [id number] Sohail MD: Ace Nobles M.D. Measurements Intervals [place] Rate: 101 P: 60 MN: 160 QRS: 44 QRSD: 85 T: 7 QT: 312 QTc: 406 Interpretive Statements SINUS TACHYCARDIA LOW QRS VOLTAGE IN PRECORDIAL LEADS [QRS DEFLECTION < 1.0 mV IN CHEST LEADS] ST DEVIATION AND MODERATE T-WAVE ABNORMALITY, CONSIDER ANTEROLATERAL ISCHEMIA [-0.1+ mV T-WAVE IN V3-V6] ST DEVIATION AND MODERATE T-WAVE ABNORMALITY, CONSIDER INFERIOR ISCHEMIA [-0.1+ mV T-WAVE IN II/aVF] Compared to ECG 10/13/2024 17:48:16 Low QRS voltage now present T-wave abnormality still present Possible ischemia still present Electronically Signed On 12-06-2024 20:27:39 CDT by Ace Nobles M.D. [email or web address]
--- OUTSIDE RECORDS SUMMARY | 2024-12-05 22:09 | XMS_ITS | Clinical Summary ---
Author Organization [facility] Address [address] Avila: Epic Prelude ADT [place] [address] Care Team Providers Care Scooper Name Role Phone Sidney Urbano MD Primary Care Provider [phone] Allergies Active Allergy Reactions Criticality Noted Date Comments Codeine Shortness of Breath/Wheezing 11/20/2015 Penicillins Rash 11/20/2015 Raspberry Anaphylaxis High 07/18/2024 Sulfa (Sulfonamide Antibiotics) Rash 11/20/2015 Sulfamethoxazole-Trimethopr im Unknown 07/18/2024 Medications predniSONE (DELTASONE) 10 mg tablet Take 3 tablets for the first 2 days, 2 tablets for the next 2 days, and 1 tablet for the last 2 days. Take in the AM with breakfast.. 12 Tablet None 6 Active promethazine-d extromethorpha n (PHENERGAN-DM) 6.25-15 mg/5 mL syrup Take 5 mL by mouth every 4 hours as needed for Cough. 120 mL 1 6 Active acyclovir (ZOVIRAX) 200 mg/5 mL suspension TAKE 20 ML BY MOUTH THREE TIMES DAILY FOR 2 DAYS Active polyethylene glycol 3350 (ClearLax) 17 gram/dose Powder 1 capful daily as needed for constipation 4 Active tiZANidine (ZANAFLEX) 4 mg Tablet Take 1 tablet 3 times a day by oral route as needed for 7 days. 4 Active albuterol sulfate HFA 90 mcg/actuation aerosol inhaler INHALE 2 PUFFS BY MOUTH EVERY 6 HOURS NEEDED FOR SHORTNESS OF BREATH FOR WHEEZING 4 Active aspirin (ECOTRIN EC) 81 mg Tablet, Delayed Release (E.C.) Take 1 tablet every day by oral route. Active busPIRone (BUSPAR) 5 mg tablet Take 1 Tablet by mouth 2 times daily as needed. Active celecoxib (CeleBREX) 100 mg capsule Take 1 Capsule by mouth 2 times daily. Active ciprofloxacin HCl (CIPRO) 500 mg tablet Take 1 Tablet by mouth 2 times daily. 4 Active dicyclomine (BENTYL) 10 mg capsule Take 1 capsule twice a day by oral route as needed. Active Trulicity 0.75 mg/0.5 mL injection INJECT 0.75MG SUBCUTANEOUSLY ONCE A WEEK Active FLUoxetine (PROzac) 20 mg/5 mL (4 mg/mL) solution TAKE 20 ML BY MOUTH ONCE DAILY IN THE MORNING Active fluticasone propion-salmet Demetrio (ADVAIR DISKUS,WIXELA INHUB) 500-50 mcg/dose disk inhaler INHALE 1 DOSE BY MOUTH TWICE DAILY 4 Active metFORMIN (GLUCOPHAGE) 500 mg tablet Take 1 Tablet by mouth 2 times daily. 4 Active methocarbamoL (ROBAXIN) 750 mg tablet Take 1 tablet 3 times a day by oral route as needed. Active nitroglycerin (NITROSTAT) 0.4 mg Tablet, Sublingual DISSOLVE ONE TABLET UNDER THE TONGUE EVERY 5 MINUTES NEEDED FOR CHEST PAIN. DO NOT EXCEED A TOTAL OF 3 DOSES IN 15 MINUTES 4 Active ofloxacin (OCUFLOX) 0.3 % solution INSTILL 1 DROP INTO AFFECTED EYE(S) 4 TIMES DAILY Active ondansetron (ZOFRAN ODT) 4 mg Tablet, Rapid Dissolve Place 2 tablets twice a day by translingual route as needed. Active oxyBUTYnin (DITROPAN XL) 10 mg Extended Release 24 hour tablet Take 1 Tablet by mouth daily. Active rosuvastatin (CRESTOR) 20 mg tablet Take 1 tablet every day by oral route. Active tiotropium (Spiriva with HandiHaler) 18 mcg capsule PUNCTURE 1 CAP USING DEVICE AND INHALE ONCE A DAY AT 7AM. ONE DOSE=2 INHALTIONS 4 Active omeprazole (PriLOSEC) 40 mg Capsule, Delayed Release(E.C.) Take 1 Capsule (40 mg) by mouth 2 times daily. 30 Capsule 2 025 Active Active Problems Problem Noted Date Diagnosed Date Dysphagia 03/28/2024 Assessment & Plan (10/18/2024 2:49 PM CDT): Improved since upper endoscopy. Advised that upper endoscopy may need to be repeated if dysphagia recurs. If worsening, may also consider esophageal manometry. Assessment & Plan (07/18/2024 9:28 AM PHYSICIAN AIDE): We will evaluate esophagus with EGD for possible dilation/biopsies. Swallowing precautions. Orders: EGD; Future Fibromyalgia 03/28/2024 Herpes simplex type 2 infection 03/28/2024 Pain in joint of right shoulder 03/28/2024 Asthma 11/28/2023 Cerebrovascular accident 11/28/2023 Chronic depression 11/28/2023 Essential hypertension 11/28/2023 Chronic obstructive pulmonary disease 07/05/2023 Gastroesophageal reflux disease 07/05/2023 Assessment & Plan (10/18/2024 2:49 PM CDT): Continue omeprazole- refill sent in to pharmacy. Lifestyle modifications. Hypertriglyceridemia 07/05/2023 Obstructive sleep apnea of adult 07/05/2023 Type 2 diabetes mellitus 01/28/2023 Encounters Date Type Department Care Team Description 11/15/2024 External Device Data [facility] ABSTRACTION Provider, Abstract 11/14/2024 External Device Data [facility] ABSTRACTION Provider, Abstract 11/14/2024 External Device Data [facility] ABSTRACTION Provider, Abstract 10/31/2024 External Device Data [facility] ABSTRACTION Provider, Abstract 10/24/2024 External Device Data [facility] ABSTRACTION Provider, Abstract 10/19/2024 External Device Data [facility] ABSTRACTION Provider, Abstract 10/19/2024 External Device Data [facility] ABSTRACTION Provider, Abstract 10/18/2024 1:30 PM CDT Telephone Check Up [facility] [address] [place] [address] Latricia Koch, MANAGER ERP Gastroesophageal reflux disease, unspecified whether esophagitis present (Primary Dx); Dysphagia, unspecified type; Alternating constipation and diarrhea 10/18/2024 External Device Data ST[facility] ABSTRACTION Provider, Abstract 10/17/2024 External Device Data [facility] ABSTRACTION Provider, Abstract 09/14/2024 Telephone [facility] [address] [place] [phone] Lio Santos, DO documentation 09/14/2024 Results Follow-Up [address] [place] [phone] Lio Santos, DO PATHOLOGY 09/12/[address] [place] [phone] Lio Santos, DO documentation 09/08/2024 1:24 PM CDT Anesthesia Event [facility] [address] [place] [phone] Jarett Howard, DO Johnny Betancur, AA 09/08/2024 11:20 AM CDT - 09/08/2024 11:40 AM CDT Surgery [facility] [address] [place] [phone] Lio Santos, DO ESOPHAGOGASTRODUODENOSCOPY 09/08/2024 10:43 AM CDT - 09/08/2024 2:12 PM CDT Hospital Encounter [facility] [address] [place] [phone] Lio Santos, DO Discharge Disposition: Home or Self Care from Last 3 Months Social History Tobacco Use Types Packs/Day Years Used Date Smoking Tobacco: Never Alcohol Use Standard Drinks/Week Comments No 0 (1 standard drink = 0.6 oz pur e alcohol) Feeling Safe Answer Date Recorded Are you in a relationship wi th someone who hurts you emotionally and/or physically? No 09/08/2024 Comments Unknown Sex and Gender Information Value Date Recorded Sex Assigned at Not on file Legal Sex Female 8:38 AM PHYSICIAN AIDE Gender Identity Not on file Sexual Orientation Not on file Last Filed Vital Signs Vital Sign Reading Time Taken Comments Blood Pressure 109/80 09/08/2024 2:04 PM CDT Pulse 88 09/08/2024 2:04 PM CDT Temperature 37.1 C (98.7 F) 11/20/2015 8:13 AM CDT Respiratory Rate 16 09/08/2024 2:04 PM CDT Oxygen Saturation 93% 09/08/2024 2:04 PM CDT Inhaled Oxygen Concentration - - Weight 86.2 kg (190 lb) 08/28/2024 10:18 AM CDT Height 152.4 cm (5') 08/28/2024 10:18 AM CDT Body Mass Index 37.11 08/28/2024 10:18 AM CDT Plan of Treatment Upcoming Encounters Date Type Department Care Team (Late st Contact Info) Description 02/05/2025 7:30 AM CDT Telephone Check Up [facility]- [place] [address] [facility] [address] [place] [phone] Latricia Koch, [facility] [address] [facility] [address] [place] [phone] Health Maintenance Due Date Last Done Comments DIABETES ANNUAL FOOT EXAM 11/26/1989 DIABETES ANNUAL RETINAL EXAM 11/26/1989 DIABETES MICROALBUMIN ANNUAL SCREEN 11/26/1989 LDL CHOLESTEROL ANNUAL 11/26/1989 HEPATITIS B VACCINES (1 of 3 - 19+ 3-dose series) 11/26/1990 HPV/Cotest (21-29) 11/26/1992 CERVICAL CANCER SCREENING 11/26/2001 HPV/Cotest (30-65) 11/26/2001 PAP SMEAR 11/26/2001 BREAST CANCER SCREENING 2011 FIT-DNA Q 3 years 11/26/2016 FIT/FOBT Q 1 year 11/26/2016 Flex Sig/CT Colonography Q 5 years 11/26/2016 ZOSTER VACCINE (2 of 2) 10/30/2024 09/04/2024 DIABETES HBA1C Q 6 MONTHS 11/29/20242024, 12/07/2023, 07/06/2023 INFLUENZA VACCINE (#1) 2024 DTAP/TDAP/TD VACCINES (9 - T d or Tdap) 06/02/2032 06/02/2022, 04/28/2016, 11/15/2008, Additional history exists COLORECTAL SCREENING 09/08/2034 09/08/2024, 09/08/2024, 10/17/2021 Colorectal Cancer Screening 09/08/2034 Procedures Procedure Name Priority Date/Time Associated Diagnosis Comments UPPER ENDOSCOPY REPORT 1:49 PM CDT COLONOSCOPY REPORT 09/08/2024 1:48 PM CDT PATHOLOGY Pathology 09/08/2024 1:33 PM CDT [place] COLONOSCOPY FLX DX W/CRISTÓBAL J SPEC WHEN PFRMD 09/08/2024 11:20 AM CDT Dysphagia, unspecified type Heartburn Bloating Screening for colon cancer Case Notes Entry date:07/20/2024 Procedure :DBL Special Notes: Dx: Dysphagia, unspecified type, Heartburn, Bloating, Screening for colon cancer BT:NONE BT managed by: N/a Diabetic: YES Diabetic/WT med:Trulicity (Dulaglutide) - takes on Wednesday Procedure Loc & Reason:Hosp MAC Meds, Limited Mob - uses cane BMI: 37.1 Last Procedure: + [facility] Referring Provider: Suzette Bowman GI Doc:Any Insurance: [facility] Last GI appt: Latricia GUERRERO 07/18/24 Other info: N/a NH ESOPHAGOGASTRODUODENOSCOP Y TRANSORAL DIAGNOSTIC 09/08/2024 11:20 AM CDT Dysphagia, unspecified type Heartburn Bloating Screening for colon cancer Case Notes Entry date:07/20/2024 Procedure :DBL Special Notes: Dx: Dysphagia, unspecified type, Heartburn, Bloating, Screening for colon cancer BT:NONE BT managed by: N/a Diabetic: YES Diabetic/WT med:Trulicity (Dulaglutide) - takes on Wednesday Procedure Loc & Reason:Hosp MAC Meds, Limited Mob - uses cane BMI: 37.1 Last Procedure: 10+ [facility] Referring Provider: Suzette Bowman Doc:Any Insurance: [facility] Last GI appt: Latricia OV 07/18/24 Other info: N/a from Last 3 Months Results * UPPER ENDOSCOPY REPORT (09/08/2024 1:49 PM CDT) Narrative Procedure Note Lio Santos DO - 09/08/2024 1:49 PM CDT [facility] GI Patient Name: Gale Veloz Procedure Date: 09/08/2024 Date of : 1970 Admit Type: Outpatient Age: 53 Attending MD: Lio aSntos DO, Procedure: Upper GI endoscopy with bx and okeefe dilitation Indications: Dysphagia Providers: Lio Santos DO Referring MD: Suzette Bowman Medicines: Propofol per Anesthesia Complications: No immediate complications. Procedure: Pre-Anesthesia Assessment: - Prior to the procedure, a History and Physical was performed, and patient medications, allergies and sensitivities were reviewed. The patient's tolerance of previous anesthesia was reviewed. - The risks and benefits of the procedure and the sedation options and risks were discussed with the patient. All questions were answered and informed consent was obtained. - ASA Grade Assessment: III - A patient with severe systemic disease. After obtaining informed consent, the endoscope was passed under direct vision. Throughout the procedure, the patient's blood pressure, pulse, and oxygen saturations were monitored continuously. The Colonoscope was introduced through the mouth, and advanced to the second part of duodenum. The upper GI endoscopy was accomplished without difficulty. The patient tolerated the procedure well. Estimated Blood Loss: Estimated blood loss: none. Findings: Esophagus grossly appears normal. Due to complaints of dysphagia a single 50 Nepali Okeefe dilator was passed without difficulty. The stomach showed diffuse gastritis. Biopsies were obtained for Helicobacter testing from the antrum Normal duodenum Recommendation: - Await pathology results. increase PPI to BID Lio Santos DO 09/08/2024 1:49:31 PM This report has been signed electronically. Number of Addenda: 0 Note Initiated On: 09/08/2024 1:24 PM Scope Withdrawal Time Scope In: Scope Out: [address] [place], [place] Lio Santos DO GI PROCEDURE ORDERABLES Final Result * COLONOSCOPY REPORT (09/08/2024 1:48 PM CDT) Narrative Procedure Note Lio Santos DO - 09/08/2024 1:48 PM CDT [facility] GI Patient Name: Gale Veloz Procedure Date: 09/08/2024 Date of : 1970 Admit Type: Outpatient Age: 53 Attending MD: Lio Santos DO, Procedure: Colonoscopy Indications: screening Providers: Lio Santos DO Referring MD: Suzette Bowman Medicines: per anesthesia Complications: No immediate complications. Procedure: Pre-Anesthesia Assessment: - Prior to the procedure, a History and Physical was performed, and patient medications and allergies were reviewed. The patient's tolerance of previous anesthesia was also reviewed. The risks and benefits of the procedure and the sedation options and risks were discussed with the patient. All questions were answered, and informed consent was obtained. Prior Anticoagulants: The patient has taken no anticoagulant or antiplatelet agents. ASA Grade Assessment: III - A patient with severe systemic disease. After reviewing the risks and benefits, the patient was deemed in satisfactory condition to undergo the procedure. After I obtained informed consent, the scope was passed under direct vision. Throughout the procedure, the patient's blood pressure, pulse, and oxygen saturations were monitored continuously. The Colonoscope was introduced through the anus and advanced to the rectum. The patient tolerated the procedure well. The quality of the bowel preparation was inadequate. Estimated Blood Loss: Estimated blood loss: none. Findings: A large amount of extensive amounts of semi-solid solid stool was found in the recto-sigmoid colon, precluding visualization. Recommendation: - Repeat colonoscopy at the next available appointment because the examination was incomplete and because the bowel preparation was poor. - Continue present medications. - Patient has a contact number available for emergencies. The signs and symptoms of potential delayed complications were discussed with the patient. Return to normal activities tomorrow. Written discharge instructions were provided to the patient. - Return to primary care physician as previously scheduled. - The findings and recommendations were discussed with the patient's family. Lio Santos DO 09/08/2024 1:47:49 PM This report has been signed electronically. Number of Addenda: 0 Note Initiated On: 09/08/2024 1:24 PM Scope Withdrawal Time Scope In: 1:37:57 PM Scope Out: 1:38:43 PM [address] [place], [place] Lio Santos DO GI PROCEDURE ORDERABLES Final Result * PATHOLOGY (09/08/2024 1:33 PM CDT) CASE REPORT Surgical Pathology Report Case: [id number] Authorizing Provider: Lio Santos DO Collected: 09/08/2024 01:33 PM Ordering Location: [facility] Received: 09/11/2024 07:09 AM Endoscopy Pathologist: Jovana Quintana DO Specimen: Stomach 5 7:48 AM CDT [facility] FINAL DIAGNOSIS A. Stomach, biopsy - Benign gastric mucosa with minimal nonspecific chronic inflammation - Immunohistochemical stain for Helicobacter pylori negative - No dysplasia or malignancy Jovana Quintana DO [id number] 5 7:48 AM CDT [facility] at 0748 CDT GROSS DESCRIPTION A. Received in formalin labeled Magdiel -stomach biopsies rule out H. pylori are two fragments of vargas-pink soft tissue, up to 0.3 cm in greatest dimension. The specimen is submitted entirely in A1. Ansley Evans 5 7:48 AM CDT [facility] MICROSCOPIC DESCRIPTION A. No Helicobacter organisms were identified on routine hematoxylin and eosin stain. The use of ancillary immunohistochemical studies for Helicobacter pylori on block A1 was deemed medically necessary based on minimal nonspecific chronic inflammation and clinical request to rule out H. pylori. 5 7:48 AM CDT [facility] OPERATIVE PROCEDURE 1: ESOPHAGOGASTRODUODENOSCO PY 2: COLONOSCOPY 5 7:48 AM CDT [facility] CLINICAL INFORMATION R/O H Pylori Dysphagia, unspecified type Heartburn Bloating Screening for colon cancer 5 7:48 AM CDT [facility] COMMENT The [email or web address] voice-activated dictation system may have been used in the creation of this report. Inherent to this system is the possibility of errors in syntax, grammar, punctuation, or other areas that could impact interpretation. If there are interpretive questions about the report, please contact the performing pathologist. Unless gross only is specified in the diagnosis, the microscopic examination substantiates the above cited diagnosis. The performance characteristics of all immunohistochemical stains cited in this report (if any) were determined by the [facility]ohist[facility] of [facility] in compliance with CLIA'88 regulations. Some of these tests rely on the use of analyte specific reagents and are subject to specific labeling requirements by the FDA. All controls show appropriate reactivity. This testing was developed by the [facility] of [facility]. It has not been cleared or approved by the FDA. The FDA has determined that such clearance or approval is not necessary. 7:48 AM CDT [facility] Tissue ENTIRE STOMACH / Unknown Collection / Unknown 09/08/2024 1:33 PM CDT 09/11/2024 7:09 AM CDT Comment:R/O H Pylori us Lio Santos DO PATHOLOGY/CYTOLOGY ORDERABLES Final Result Performing Organization Address City/State/[facility] Co de Phone Number [facility] # [id number] [facility] [address] [place] [address] from Last 3 Months Insurance MEDICAID [place] Advance Directives For more information, please contact: [phone] * Full Code (Latest Code Status on File) Date Activated Date Inactivated Comments 09/08/2024 11:11 AM 09/08/2024 4:12 PM Care Teams Scooper Relationship Specialty Start Date End Date Sidney Urbano MD [address] [place] [phone] PCP - General Family Practice 11/20/15
--- OUTSIDE RECORDS SUMMARY | 2024-12-05 22:09 | XMS_ITS | Data Portability ---
Author Organization [facility] Address [address] [address] Care Team Providers Care Test Lab Technician Name Role Phone SUZETTE EGAN Primary Care Provider HEART CARE SERVICES Referring Provider NEMESIO YOON Referring Provider [phone] [facility] PULMONOLOGY - DR DATAR Any shcwartz Provider Assessment Encounter Date Assessment Date Assessment LastModified by Organization Details LastModified Time 06/27/2024 06/27/2024 Her daughter recently had a baby and she has been helping with her. She has an appt with Dr. Napoles in July. Overall she has been doing okay. She does report she has a small area on her inner left thigh near her groin that has been tender. She has been using mupirocin on it. She has a history of HSV, will treat accordingly. Not available 06/27/2024 11:55:51 09/14/2024 09/14/2024 Patient here today for a follow-up after her GI appt. They did stretch her esophagus but she is still nervous about swallowing pills. They tried to do her colonoscopy but her cleanse wasn't good. She will try baby feet on her feet to see if that helps as well as hydrating lotion. Not available 09/18/2024 11:39:18 11/16/2024 11/16/2024 Patient here for a check-up today. She was admitted for a couple of days. Her daughter was recently in the stress unit. She reports she went and worked out at the gym with her oxygen. She is not doing PT yet with her right shoulder. She has a phone call with disability in December. She still has troubles at night with her oxygen. She feels like she needs to stay on the oxygen for now. Discussed with her how to wean down from the oxygen when she is ready. Will contact her with xray results. Not available 11/16/2024 14:56:33 Plan of Treatment Reminders Order Date Submit Date Provider Last Modified By Organization Details Last Modified Time Details Appointments None recorded. Lab None recorded. Referral gastroenter ologist referral - May need esophagus stretched. 2024 025 [email or web address] Not available 16:34:22 Procedures None recorded. Surgeries None recorded. Imaging XR, chest, 2 view - one month f/u CXR to be done in October at [facility]. 2024 025 [email or web address] 2 [facility], [address] [place] [address], [address], 09:21:54 Medication Orders ClearLax 17 gram/dose oral powder 2024 025 [facility], [address], [place], [address], 16:22:54 promethazin e-DM 6.25 mg-15 mg/5 mL oral syrup 2024 025 [facility], [address], [place], [address], 5 12:10:55 cefdinir 250 mg/5 mL oral suspension 2024 025 [facility], [address], [place], [address], 5 12:05:36 ofloxacin 0.3 % eye drops 2024 025 [email or web address] 9 [facility], [address], [place], [address], 18:22:04 acyclovir 200 mg/5 mL (5 mL) oral suspension 2024 025 [facility], [address] [place], [address], 14:08:41 Patient TargetsNo targets recorded. Patient Instructions Encounter Date Encounter Id Patient Instructions Last Modified By Organization Details Last Modified Time 06/27/2024 [id number] Call or return for questions or concerns. Not available 06/27/2024 11:55:06 11/16/2024 [id number] Call or return for questions or concerns. Not available 11/16/2024 15:04:23 Reason for Referral Clinical Pharmacy Coordinator Referral for Difficulty swallowing May need esophagus stretched. Referring Physician: Suzette Egan, Family Medicine, Encounter Date: 06/27/2024 Results Created Date Observation Date Name Description Value Unit Range Abnormal Flag Note LastModifiedBy Organization Detail LastModifiedTime 06/01/1906/01/2024 URINA LYSIS WITH MICRO color YELLOW Not Available [facility] [address] [facility], [place], [address], 06/01/2024 12:39:00 06/01/19 25 06/01/2024 URINA LYSIS WITH MICRO clarity CLEAR Not Available [facility] [address] [facility] 1, [place], [address], 06/01/2024 12:39:00 06/01/19 25 06/01/2024 URINA LYSIS WITH MICRO glu NEGATI VE Not Available [facility] [address] [facility] 1, [place], [address], 06/01/2024 12:39:00 06/01/19 25 06/01/2024 URINA LYSIS WITH MICRO bili NEGATI VE Not Available [facility] [address] [facility] 1, [place], [address], 06/01/2024 12:39:00 06/01/19 25 06/01/2024 URINA LYSIS WITH MICRO ket NEGATI VE Not Available [facility] [address] [facility] 1, [place], [address], 06/01/2024 12:39:00 06/01/19 25 06/01/2024 URINA LYSIS WITH MICRO S.g 1.020 1.005- 1.025 Not Available [facility] [address] [facility] 1, [place], [address], 06/01/2024 12:39:00 06/01/19 25 06/01/2024 URINA LYSIS WITH MICRO pH 5.5 5.0-7. 0 Not Available [facility] [address] [facility] 1, [place], [address], 06/01/2024 12:39:00 06/01/19 25 06/01/2024 URINA LYSIS WITH MICRO pro NEGATI VE Not Available [facility] [address] [facility] 1, [place], [address], 06/01/2024 12:39:00 06/01/19 25 06/01/2024 URINA LYSIS WITH MICRO uro 0.2 E.U./D L Not Available [facility] [address] [facility] 1, [place], [address], 06/01/2024 12:39:00 06/01/19 25 06/01/2024 URINA LYSIS WITH MICRO nit NEGATI VE Not Available [facility] [address] [facility] 1, [place], [address], 06/01/2024 12:39:00 06/01/19 25 06/01/2024 URINA LYSIS WITH MICRO blo TRACE- INTACT abnormal Not Available [facility] [address] [facility] 1, [place], [address], 06/01/2024 12:39:00 06/01/19 25 06/01/2024 URINA LYSIS WITH MICRO hesham TRACE abnormal Not Available [facility] [address] [facility] 1, [place], [address], 06/01/2024 12:39:00 06/01/19 25 06/01/2024 URINA LYSIS WITH MICRO WBC 8-10 abnormal Not Available [facility] [address] [place] Maryellen [facility] 1, [place], [address], 06/01/2024 12:39:00 06/01/19 25 06/01/2024 URINA LYSIS WITH MICRO RBC 0-1 Not Available [facility] [address] [facility], [place], [address], 06/01/2024 12:39:00 06/01/19 25 06/01/2024 URINA LYSIS WITH MICRO epi cells 4-6 abnormal Not Available [facility] [address] [facility], [place], [address], 06/01/2024 12:39:00 06/01/19 25 06/01/2024 URINA LYSIS WITH MICRO bacteria TRACE OF MIXED ANGELLA abnormal Not Available [facility] [address] [facility], [place], [address], 06/01/2024 12:39:00 06/01/19 25 06/01/2024 URINA LYSIS WITH MICRO other NG Not Available [facility] [address] [facility], [place], [address], 06/01/2024 12:39:00 06/01/19 25 06/01/2024 CBC WBC 8.1 x10 4.0-10 .5 Not Available [facility] [address] Maryellen [facility] 1, [place], [address], 06/01/2024 12:41:39 06/01/19 25 06/01/2024 CBC RBC 4.84 x10 3.50-5 .50 Not Available [facility] [address] [place] Bojorquez [facility] 1, [place], [address], 06/01/2024 12:41:39 06/01/19 25 06/01/2024 CBC HGB 14.1 g/dL 12.0-1 6.0 Not Available [facility] [address] [facility] 1, [place], [address], 06/01/2024 12:41:39 06/01/1906/01/2024 CBC HCT 41.3 % 37.0-4 7.0 Not Available [facility] [address] [facility] 1, [place], [address], 06/01/2024 12:41:39 06/01/19 25 06/01/2024 CBC MCV 85.4 fL 80.0-9 9.9 Not Available [facility] [address] [facility] 1, [place], [address], 06/01/2024 12:41:39 06/01/19 25 06/01/2024 CBC MCH 29.1 pg 27.0-3 2.0 Not Available [facility] [address] [facility] 1, [place], [address], 06/01/2024 12:41:39 06/01/19 25 06/01/2024 CBC MCHC 34.1 g/dL 32.0-3 6.0 Not Available [facility] [address] [facility] 1, [place], [address], 06/01/2024 12:41:39 06/01/19 25 06/01/2024 CBC RDW 13.9 % 11.5-1 4.5 Not Available [facility] [address] [facility] 1, [place], [address], 06/01/2024 12:41:39 06/01/19 25 06/01/2024 CBC plt 236.9 x10 140.0- 451.0 Not Available [facility] [address] [facility] 1, [place], [address], 06/01/2024 12:41:39 06/01/19 25 06/01/2024 CBC lymphocytes % 22.9 % 20.0-5 0.0 Not Available [facility] [address] [facility] 1, [place], [address], 06/01/2024 12:41:39 06/01/19 25 06/01/2024 CBC granulcytes % 63.6 % 30.0-7 0.0 Not Available [facility] [address] [address], [place], [address], 06/01/2024 12:41:39 06/01/19 25 06/01/2024 CBC monocytes % 10.2 % 2.0-16 .0 Not Available [facility] [address] [address], [place], [address], 06/01/2024 12:41:39 06/01/19 25 06/01/2024 CBC granulcytes# 5.2 x10 Not Linda ilable [facility] [address] [address], [place], [address], 06/01/2024 12:41:39 06/01/19 25 06/01/2024 CBC lymphocytes # 1.9 x10 Not Available [facility] [address] [address], [place], [address], 06/01/2024 12:41:39 06/01/19 25 06/01/2024 CBC monocytes # 0.8 x10 Not Avai lable [facility] [address] [facility] 1, [place], [address], 06/01/2024 12:41:39 06/01/1906/01/2024 HBA1C hemaglobin A1C 5.8 4.2-6. 5 Not Available [facility] [address] [facility] 1, [place], [address], 06/01/2024 12:54:22 06/01/19 25 06/01/2024 CMP (FEMA LE) glucose 94.0 mg/dL 60.0-9 9.0 Not Available [facility] [address] [facility] 1, [place], [address], 06/01/2024 14:34:14 06/01/19 25 06/01/2024 CMP (FEMA LE) BUN (blood urea nitrogen) 14.0 mg/dL 10.0-2 6.0 Not Available [facility] [address] [facility] 1, [place], [address], 06/01/2024 14:34:14 06/01/19 25 06/01/2024 CMP (FEMA LE) creatinine (serum) 0.9 mg/dL 0.4-1. 5 Not Available [facility] [address] [address], [place], [address], 06/01/2024 14:34:14 06/01/19 25 06/01/2024 CMP (FEMA LE) BUN/creatini ne ratio 15.56 ratio Not Available [facility] [address] [address], [place], [address], 06/01/2024 14:34:14 06/01/19 25 06/01/2024 CMP (FEMA LE) eGFR calculated 69.9 Not Available [facility] [address] [facility] 1, [place], [address], 06/01/2024 14:34:14 06/01/19 25 06/01/2024 CMP (FEMA LE) total protein 8.3 g/dL 6.0-8. 5 Not Available [facility] [address] [facility] 1, [place], [address], 06/01/2024 14:34:14 06/01/19 25 06/01/2024 CMP (FEMA LE) total bilirubin 0.6 mg/dL 0.2-1. 3 Not Available [facility] [address] [facility] 1, [place], [address], 06/01/2024 14:34:14 06/01/19 25 06/01/2024 CMP (FEMA LE) albumin 4.6 g/dL 3.5-5. 5 Not Available [facility] [address] [facility] 1, [place], [address], 06/01/2024 14:34:14 06/01/19 25 06/01/2024 CMP (FEMA LE) globulin 3.7 calc Not Available [facility] [address] [facility] 1, [place], [address], 06/01/2024 14:34:14 06/01/19 25 06/01/2024 CMP (FEMA LE) AST (SGOT) 20.0 U/L 0.0-46 .0 Not Available [facility] [address] [facility] 1, [place], [address], 06/01/2024 14:34:14 06/01/19 25 06/01/2024 CMP (FEMA LE) altv (SGPT) 17.0 U/L 13.0-6 9.0 normal Not Available [facility] [address] [facility] 1, [place], [address], 06/01/2024 14:34:14 06/01/19 25 06/01/2024 CMP (FEMA LE) A/G ratio 1.2 ratio Not Available [facility] [address] [facility] 1, [place], [address], 06/01/2024 14:34:14 06/01/19 25 06/01/2024 CMP (FEMA LE) ALP phos 83.0 U/L 30.0-1 40.0 normal Not Available [facility] [address] [facility] 1, [place], [address], 06/01/2024 14:34:14 06/01/19 25 06/01/2024 CMP (FEMA LE) calcium 9.5 mg/dL 8.4-10 .5 Not Available [facility] [address] [facility] 1, [place], [address], 06/01/2024 14:34:14 06/01/19 25 06/01/2024 CMP (FEMA LE) sodium 141.0 mmol/ L 136.0- 145.0 Not Available [facility] [address] [facility] 1, [place], [address], 06/01/2024 14:34:14 06/01/19 25 06/01/2024 CMP (FEMA LE) potassium 4.1 mmol/ L 3.5-5. 1 Not Available [facility] [address] [facility] 1, [place], [address], 06/01/2024 14:34:14 06/01/19 25 06/01/2024 CMP (FEMA LE) chloride 103.0 mmol/ L 98.0-1 10.0 normal Not Available [facility] [address] [facility] 1, [place], [address], 06/01/2024 14:34:14 06/01/19 25 06/01/2024 CMP (FEMA LE) C02 30.0 mmol/ L 22.0-3 1.0 Not Available [facility] [address] [facility], [place], [address], 06/01/2024 14:34:14 06/01/19 25 06/01/2024 CMP (FEMA LE) anion gap 8.0 calc Not Available [facility] [address] [facility] 1, [place], [address], 06/01/2024 14:34:14 06/01/19 25 06/01/2024 CMP (FEMA LE) osmolality 291.4 calc Not Available [facility] [address] [facility] 1, [place], [address], 06/01/2024 14:34:14 06/01/19 25 06/01/2024 LIPID PROFI LE (FEMA LE) cholesterol 221.0 mg/dL 0.0-20 0.0 high Not Available [facility] [address] [facility] 1, [place], [address], 06/01/2024 14:34:17 06/01/19 25 06/01/2024 LIPID PROFI LE (FEMA LE) trig 245.0 mg/dL 0.0-15 0.0 high Not Available [facility] [address] [facility] 1, [place], [address], 06/01/2024 14:34:17 06/01/19 25 06/01/2024 LIPID PROFI LE (FEMA LE) HDL - direct 30.0 mg/dL >40.0 low Not Available [facility] [address] [facility] 1, [place], [address], 06/01/2024 14:34:17 06/01/19 25 06/01/2024 LIPID PROFI LE (FEMA LE) VLDL - direct 49.0 mg/dL Not Available [facility] [address] [facility] 1, [place], [address], 06/01/2024 14:34:17 06/01/19 25 06/01/2024 LIPID PROFI LE (FEMA LE) LDL - direct 142.0 mg/dL 0.0-13 0.0 high Not Available [facility] [address] [facility] 1, [place], [address], 06/01/2024 14:34:17 06/01/19 25 06/02/2024 ALBUM IN, RANDO M URINE W/CRE ATINI NE creatinine, random urine 52 mg/dL 20-275 normal Not Available [address] [address] [place], [address], 06/03/2024 00:46:07 06/01/1906/02/2024 ALBUM IN, RANDO M URINE W/CRE ATINI NE albumin, urine 0.2 mg/dL see note: normal Refer ence Range : Refer ence Range Not estab lishe d Not Available [address] [address] [place], [address], 06/03/2024 00:46:07 06/01/1906/02/2024 ALBUM IN, RANDO M URINE W/CRE ATINI NE albumin/crea tinine ratio, random urine 4 mg/g_ creat <30 normal The ADA defin es abnor malit ies in album in excre tion as follo ws: Album inuri a Categ ory Resul t (mg/g creat inine ) Syeda l to Mildl y incre ased <30 Moder ately incre ased 30-29 9 Sever ginny incre ased > OR = 300 The ADA recom mends that at least two of three speci mens colle cted withi n a 3-6 month perio d be abnor mal befor e consi tato g a patie nt to be withi n a diagn ostic categ ory. Not Available [address] [address] [place], [address], 06/03/2024 00:46:07 06/01/19 25 06/02/2024 CULTU RE, URINE , ROUTI NE culture, urine, routine SEE NOTE CULTU RE, URINE , ROUTI NE Micro Numbe r: [id number] Test Statu s: Final Speci men Sourc e: Urine Speci men Quali ty: Adequ ate Resul t: No Growt h Not Available [facility] [address] [address], [place], [address], 06/03/2024 00:46:09 06/01/19 25 06/01/2024 XR, cervi millie spine No observ ation record ed. [email or web address] [facility] [address] [place], [address], 06/02/2024 15:53:46 06/01/19 25 06/01/2024 XR, cervi millie spine No observ ation record ed. [email or web address] [facility] [address] [place], [address], 06/02/2024 15:54:32 06/13/19 25 06/13/2024 FL, modif ied lory cruz ow study No observ ation record ed. [facility] [address] [place], [address], 06/13/2024 21:36:58 11/17/19 XR, chest , 2 view No observ ation record ed. [email or web address] [facility] [address] [place], [address], 11/16/2024 14:41:32 11/18/19 25 11/16/2024 XR, chest , 2 view No observ ation record ed. [email or web address] [facility] ([facility] [address] [place], [address], 11/17/2024 15:17:32 Result Notes None recorded. Problems Name Problem SNOMED Code Status Onset Date Resolution Date Notes Provider Name and Address Organization Details Recorded Time Type 2 diabetes mellitus 53299621 Active 2022 Mariella cain [facility] 4 13:03:22 Gastroesoph ageal reflux disease 986286573 Active 2023 Mariella cain [facility] 4 12:59:11 Obstructive sleep apnea of adult 5717887519758 Active 2023 Mariella cain [facility] 4 12:59:35 Chronic obstructive pulmonary disease 75860741 Active 2023 Mariella cain [facility] 4 13:01:58 Hypertrigly ceridemia 231083151 Active 2023 Mariella cain [facility] 4 13:02:13 Chronic depression 855728135 Active 2023 BLANCA cain [facility] 4 01:09:02 Asthma 178687206 Active 2023 BLANCA cain [facility] 4 01:09:37 Essential hypertensio n 97729440 Active 2023 BLANCA cain [facility] 4 01:09:58 Cerebrovasc ular accident 611017971 Active 2023 BLANCA cain [facility] 4 01:10:23 Hiatal hernia 25885445 Active 2023 BLANCA cain [facility] 4 01:20:09 Obstructive sleep apnea syndrome 45348406 Active 2023 SUZETTE EGAN, [address], [address], [facility] 4 12:42:54 Fibromyalgi a 913477285 Active 2023 SUZETTE EGAN, [address], [address], [facility] 12:42:55 Depressive disorder 17797593 Active 2023 SUZETTE EGAN, [address], [address], [facility] 12:42:57 Screening mammography Active 2023 SUZETTE JULISA, [address], [address], [facility] 12:42:59 Pain of right shoulder joint 3672220358274 9100 Active 2023 SUZETTE JULISA, [address], [address], [facility] 12:43:02 Difficulty swallowing 171840762 Active 2023 SUZETTE JULISA, [address], [address], [facility] 5 11:36:21 Herpes simplex type 2 infection 502195693 Active 2023 SUZETTEIlan MURPHYJULISA, [address], [address], [facility] 12:43:09 Mild intermitten t asthma 885379126 Active 2023 SUZETTE EGAN, [address], [address], [facility] 4 12:43:12 Acute conjunctivi tis of left eye 3582583657773 05 Active 2024 Venkat Torres MD [address] [place] [address], [address], [facility], [facility] 5 14:39:03 Swelling of lower leg 385983698 Active 2024 Venkat Torres MD [address] [place], [address], [facility], [facility] 5 10:28:58 Recurrent major depression 65085737 Active 2024 BLANCA cain [facility] [place] 22:11:46 Osteoarthri tis of cervical spine Active 2024 BLANCA cain [facility], [facility]ulyLDexCDex 22:12:03 Problem Notes None recorded. Procedures Surgical History Date Name Laterality Status Provider Name and Address Organization Details Recorded Time 11/17/19 25 plain X-ray of chest completed BLANCA BERNAL [facility]ex[facility] 11/17/2024 15:17:17 10/14/19 25 operative procedure on shoulder [facility] 11/16/2024 14:39:04 06/13/19 25 solid barium swallow completed BLANCA BERNAL [facility], YulyLDexCDex 06/13/2024 17:43:59 06/01/19 25 plain X-ray of shoulder completed BLANCA BERNAL [facility], RaimundoCDex 06/01/2024 17:55:05 06/01/19 25 plain X-ray of cervical spine completed BLANCA BERNAL [facility], YulyLDexCDex 06/01/2024 17:56:47 04/19/20 24 barium swallow [facility] 04/19/2024 19:08:25 04/19/20 24 screening mammography completed [facility], LDuncanCDex 04/21/2024 16:06:28 10/27/19 24 plain X-ray of chest completed [facility], LDuncanCDex 11/28/2023 01:23:12 10/27/[address] of head completed [facility], LDexLDexCDex 11/28/2023 01:24:54 02/11/20 23 Doppler ultrasonography of pelvic vascular structure completed [facility], [place] 02/12/2023 12:18:14 11/13/19 23 radiography of ankle completed [facility], LHarish 11/14/2022 12:44:10 01/13/20 22 screening mammography completed [facility], LDexLDexCDex 11/28/2023 01:15:50 10/18/19 22 Colonoscopy completed [facility], LDexLDexCDex 11/28/2023 01:14:15 10/18/19 22 endoscopy completed [facility], LDexLDexCDex 11/28/2023 01:16:18 08/12/19 22 barium swallow completed [facility], LDexLDexCDex 11/28/2023 01:18:32 05/31/19 08 hysterectomy completed SUZETTE EGAN, [address], [address], [facility], LHarish 03/28/2024 12:38:03 Tubal Ligation completed [facility], LDexLDexCDex 11/28/2023 01:08:15 Cholecystectomy completed [facility], YulyLVickie 11/12/2022 16:04:43 Imaging Results None recorded. Procedure Notes None recorded. Medical Equipment None Reported. Allergies Allergen ID Allergen Name Allergen Category Reaction Reaction Severity Criticality Documentation Date Start Date Code Code System Note Provider Name and Address Organization Details Recorded Time 1545 codeine medicatio n Not available Not available Not available 09/11/2022 2670 RxNorm BLANCA BERNAL [facility] 4 13:49:35 1546 Substance with sulfonami de structure and antibacte rial mechanism of action (substanc e) medicatio n Not available Not available Not available 09/11/2022 81642 8003 SNOMED BLANCA BERNAL [facility] 4 01:01:16 1547 Product containin g penicilli n (product) medicatio n Not available Not available Not available 09/11/2022 37249 8001 SNOMED BLANCA BERNAL [facility] 4 13:49:43 24734 raspberry extract food,medi cation anaphylax is Not available [facility] 12/26/2022 34298 69 RxNorm BLANCA BERNAL [facility] 4 01:01:19 74976 codeine sulfate medicatio n Not available Not available Not available 12/26/2022 77495 RxNorm BLANCA BERNAL [facility] 4 01:00:39 97701 Bactrim medicatio n Not available Not available Not available 12/26/2022 19192 9 RxNorm BLANCA BERNAL [facility] 4 01:00:28 60059 penicilli n V potassium medicatio n Not available Not available Not available 12/26/2022 31445 5 RxNorm BLANCA BERNAL [facility] 4 01:00:50 Medications Name Sig Start Date Stop Date Status Note LastModified by Organization Details LastModified Time buspirone 5 mg tablet TAKE 1 TABLET BY MOUTH TWICE DAILY NEEDED active Not Available Not Available No t Available metformin 500 mg tablet TAKE 1 TABLET BY MOUTH TWICE DAILY active Not Available Not Available No t Available fluoxetin e 20 mg/5 mL (4 mg/mL) oral solution TAKE 20 ML BY MOUTH ONCE DAILY IN THE MORNING active Not Available Not Available No t Available acyclovir 200 mg/5 mL oral suspensio n TAKE 20 ML BY MOUTH THREE TIMES DAILY FOR 2 DAYS active Not Available Not Available No t Available promethaz ine-DM 6.25 mg-15 mg/5 mL oral syrup TAKE 5 TO 10 ML BY MOUTH EVERY 6 HOURS NEEDED FOR COUGH 10/19 completed Not Available Not Available Not Available nystatin 100,000 unit/mL oral suspensio n SWISH AND SWALLOW 4 ML FIVE TIMES DAILY 10/27 completed Not Available Not Available Not Available albuterol sulfate 2.5 mg/3 mL (0.083 %) solution for nebulizat ion USE 1 VIAL IN NEBULIZE R 4 TIMES DAILY NEEDED FOR SHORTNES S OF BREATH AND FOR WHEEZING active Not Available Not Available No t Available oxybutyni n chloride ER 10 mg tablet,ex tended release 24 hr TAKE 1 TABLET BY MOUTH ONCE DAILY active Not Available Not Available No t Available ibuprofen 800 mg tablet TAKE 1 TABLET BY MOUTH THREE TIMES DAILY NEEDED FOR PAIN 11/27 completed Not Available Not Available Not Available ofloxacin 0.3 % eye drops INSTILL 1 DROP INTO AFFECTED EYE(S) 4 TIMES DAILY 10/12 completed Not Available Not Available Not Available tizanidin e 4 mg tablet Take 1 tablet 3 times a day by oral route as needed for 7 days. 09/14 completed Recorded 04/05/20 21 8:27AM by Tory Steward, Office Visit; Refill Quantity : 40; Tablet; Not Available Not Available Not Available hydrocodo ne 5 mg-acetam inophen 325 mg tablet TAKE ONE TABLET BY MOUTH EVERY 4 HOURS NEEDED FOR PAIN for SEVEN DAYS active Not Available Not Available No t Available prednison e 20 mg tablet TAKE 2 TABLETS BY MOUTH ONCE DAILY 10/27 completed Not Available Not Available Not Available clindamyc in HCl 150 mg capsule TAKE 3 CAPSULES BY MOUTH EVERY 8 HOURS 05/11 completed Not Available Not Available Not Available Zyrtec 10 mg tablet daily 07/06 completed Recorded 05/09/20 20 3:02PM by Liza Maradiaga LPN, Historic al Summary; Refill Quantity : 30; Tablet; Not Available Not Available Not Available metronida zole 500 mg tablet TAKE 1 TABLET BY MOUTH TWICE DAILY FOR 14 DAYS 07/06 completed Not Available Not Available Not Available prednison e 5 mg/5 mL oral solution TAKE 20 MLS BY MOUTH ONCE DAILY FOR 5 DAYS 10/27 completed Not Available Not Available Not Available Tamiflu 75 mg capsule TAKE 1 CAPSULE BY MOUTH TWICE DAILY FOR 5 DAYS 11/27 completed Not Available Not Available Not Available omeprazol e 40 mg capsule,d elayed release TAKE 1 CAPSULE BY MOUTH ONCE DAILY 10/19 completed Not Available Not Available Not Available aspirin 81 mg tablet,de layed release Take 1 tablet every day by oral route. active Not Available Not Available No t Available acyclovir 800 mg tablet Take 1 tablet twice a day by oral route as needed for 5 days. 06/27 completed Not Available Not Available Not Available betametha sone acetate and sodium phos 6 mg/mL suspensio n for injection Take 1 mL by injectio n route. 02/16 completed Not Available Not Available Not Available methocarb isi 750 mg tablet Take 1 tablet 3 times a day by oral route as needed. active Not Available Not Available No t Available benzonata te 100 mg capsule TAKE 2 CAPSULES BY MOUTH THREE TIMES DAILY NEEDED FOR COUGH active Not Available Not Available No t Available cephalexi n 500 mg capsule TAKE 1 CAPSULE BY MOUTH TWICE DAILY 07/06 completed Not Available Not Available Not Available pantopraz ole 40 mg tablet,de layed release TAKE 1 TABLET BY MOUTH ONCE DAILY. 2024 active Not Available Not Available Not Avai lable cephalexi n 250 mg/5 mL oral suspensio n TAKE 2 TEASPOON SFUL(10M L) BY MOUTH THREE TIMES DAILY 10/27 completed Not Available Not Available Not Available Advair Diskus 500 mcg-50 mcg/dose powder for inhalatio n INHALE 1 DOSE BY MOUTH TWICE DAILY 2023 active Not Available Not Available Not Avai lable doxycycli ne 50 mg/5 mL oral syrup Take 10 mL twice a day by oral route for 7 days. 03/28 completed Not Available Not Available Not Available nitroglyc reyes 0.4 mg sublingua l tablet DISSOLVE ONE TABLET UNDER THE TONGUE EVERY 5 MINUTES NEEDED FOR CHEST PAIN. DO NOT EXCEED A TOTAL OF 3 DOSES IN 15 MINUTES 09/14 completed Not Available Not Available Not Available clarithro mycin 250 mg/5 mL oral suspensio n TAKE 10ML BY MOUTH TWICE DAILY FOR 14 DAYS, DISCARD REMAININ G AMOUNT 10/27 completed Not Available Not Available Not Available omeprazol e 20 mg capsule,d elayed release Take 1 capsule every day by oral route. 09/14 completed Not Available Not Available Not Available mupirocin 2 % topical ointment APPLY OINTMENT TOPICALL Y TO AFFECTED AREA THREE TIMES DAILY FOR 7 DAYS active Not Available Not Available No t Available azelastin e 137 mcg (0.1 %) nasal spray USE 1 SPRAY(S) IN EACH NOSTRIL TWICE DAILY FOR 30 DAYS 07/06 completed Not Available Not Available Not Available hydroxych loroquine 200 mg tablet TAKE 1 TABLET BY MOUTH TWICE DAILY active Not Available Not Available No t Available azithromy carrie 200 mg/5 mL oral suspensio n TAKE 12.5ML BY MOUTH TODAY, THEN TAKE 6.25ML DAILY FOR 4 DAYS DISCARD REMAINDE R 09/14 completed Not Available Not Available Not Available polyethyl josee glycol 3350 17 gram/dose oral powder MIX 17 GRAMS OF POWDER IN 8 OZ OF ANY LIQUID AND TAKE BY MOUTH TWICE DAILY FOR 30 DAYS FOR CONSTIPA TION. active Not Available Not Available No t Available methylpre dnisolone 4 mg tablets in a dose pack TAKE BY MOUTH DIRECTED ON INSIDE OF PACKAGE 11/12 completed Not Available Not Available Not Available celecoxib 100 mg capsule TAKE 1 CAPSULE BY MOUTH TWICE DAILY active Not Available Not Available No t Available ondansetr on 4 mg disintegr ating tablet Place 2 tablets twice a day by translin gual route as needed. 09/14 completed Not Available Not Available Not Available cefdinir 300 mg capsule TAKE 1 CAPSULE BY MOUTH TWICE DAILY active Not Available Not Available No t Available Zovirax 5 % topical ointment four times daily, as needed 06/27 completed dispense larger tube Not Available Not Available Not Available fluticaso ne propionat e 50 mcg/actua tion nasal spray,mable pension USE 2 SPRAY(S) IN EACH NOSTRIL ONCE DAILY active Not Available Not Available No t Available doxycycli ne hyclate 100 mg tablet TAKE 1 TABLET BY MOUTH TWICE DAILY FOR 7 DAYS 10/19 completed Not Available Not Available Not Available dicyclomi ne 10 mg capsule Take 1 capsule twice a day by oral route as needed. active Not Available Not Available No t Available naproxen 500 mg tablet TAKE 1 TABLET BY MOUTH TWICE DAILY 07/06 completed Not Available Not Available Not Available Ventolin HFA 90 mcg/actua tion aerosol inhaler INHALE 2 PUFFS BY MOUTH EVERY 6 HOURS NEEDED FOR SHORTNES S OF BREATH FOR WHEEZING 09/14 completed Not Available Not Available Not Available neomycin- polymyxin -hydrocor t 3.5 mg-10,000 unit/mL-1 % ear drops,mable p INSTILL 4 DROPS INTO AFFECTED EAR(S) BY OTIC ROUTE 3 TIMES PER DAY 10/27 completed Not Available Not Available Not Available azithromy carrie 500 mg tablet TAKE 1 TABLET BY MOUTH ONCE DAILY FOR 6 DAYS active Not Available Not Available No t Available moxifloxa carrie 0.5 % eye drops INSTILL 1 DROP INTO EACH EYE TWICE DAILY FOR 5 DAYS 07/06 completed Not Available Not Available Not Available Zovirax 5 % topical cream APPLY CREAM TOPICALL Y TO AFFECTED AREA 4 TIMES DAILY NEEDED 05/11 completed Not Available Not Available Not Available rosuvasta tin 20 mg tablet Take 1 tablet every day by oral route. active Not Available Not Available No t Available Spiriva with HandiHale r 18 mcg and inhalatio n capsules INHALE THE CONTENTS OF ONE CAPSULE VIA HANDIHAL ER ONCE DAILY. ONE DOSE EQUALS 2 INHALATI ONS active Not Available Not Available No t Available cefdinir 250 mg/5 mL oral suspensio n TAKE 6 ML BY MOUTH EVERY 12 HOURS FOR 10 DAYS 10/19 completed Not Available Not Available Not Available aspirin daily 01/28 completed 0; Recorded 06/02/19 23 3:14PM by Liza Maradiaga LPN, Office Visit; Not Available Not Available Not Available oxybutyni n chloride daily 01/28 completed Recorded 08/05/19 10:51AM by Blanca Bernal CMT, Historic al Summary; Refill Quantity : 30; Tablet; Not Available Not Available Not Available fluoxetin e daily 01/28 completed 0; Recorded 06/02/19 3:14PM by Liza Maradiaga LPN, Office Visit; Not Available Not Available Not Available nitroglyc reyes as needed 01/28 completed 0; Recorded 06/02/19 3:14PM by Liza Maradiaga LPN, Office Visit; Not Available Not Available Not Available naproxen two times daily 01/28 completed [id number]; Recorded 07/30/19 11:58AM by Blanca Bernal CMT (Authori zed through JEFFERY De La Rosa), Refill Request; Refill Quantity : 60; Tablet; Not Available Not Available Not Available isosorbid e mononitra te daily 01/28 completed 0; Recorded 06/02/19 3:14PM by Liza Maradiaga LPN, Office Visit; Not Available Not Available Not Available metformin two times daily 01/28 completed Recorded 08/05/19 10:50AM by Blanca Bernal CMT, Historic al Summary; Refill Quantity : 60; Tablet; Not Available Not Available Not Available Miralax daily 01/13 completed Recorded 12/20/19 1:37PM by Blanca Bernal CMT, Office Visit; Refill Quantity : 1; Each; Not Available Not Available Not Available Crestor at bedtime 01/28 completed Recorded 03/24/20 2:27PM by Melisa Kwan RN, Office Visit; Refill Quantity : 90; Tablet; Not Available Not Available Not Available GaviLyte- N 420 gram oral solution TAKE 4000ML BY MOUTH ONE TIME ONLY FOR 1 DOSE. MIX ACCORDIN G TO INSTRUCT IONS, THEN DRINK 1/2 THE EVENING PRIOR TO PROCEDUR E AND REMAININ G 1/2 THE MORNING OF PROCEDUR E. MUST BE COMPLETE D 2 HOURS PRIOR TO LEAVING HOME. 09/14 completed Not Available Not Available Not Available TRUEplus Lancets 33 gauge USE DAILY TO CHECK BLOOD SUGAR active Not Available Not Available No t Available acyclovir 200 mg/5 mL (5 mL) oral suspensio n Take 20 mL 3 times a day by oral route for 2 days. 07/13 completed Not Available Not Available Not Available Victoza 2-Rahul 0.6 mg/0.1 mL (18 mg/3 mL) subcutane ous pen injector INJECT 0.6MG SUBCUTAN EOUSLY DAILY FOR 1 WEEK, THEN 1.2MG DAILY FOR 1 WEEK, THEN 1.8MG DAILY 11/27 completed Not Available Not Available Not Available True Metrix Glucose Test Strip TEST ONCE DAILY active Not Available Not Available No t Available True Metrix Glucose Meter TEST ONCE DAILY active Not Available Not Available No t Available Trulicity 0.75 mg/0.5 mL subcutane ous pen injector INJECT 0.75 (0.5ML) SUBCUTAN EOUSLY EVERY 7 DAYS active Not Available Not Available No t Available TechLITE Pen Needle 32 gauge x 5/32 USE DIRECTED 11/27 completed Not Available Not Available Not Available Vitals Date Recorded Body height Body mass index (BMI) Body weight Oxygen saturation Oxygen saturation in Arterial blood by Pulse oximetry Heart rate Respiratory rate Provider Name and Address Organization Details Last Updated DateTime 5 157.48 cm 33.5 kg/m2 29288.4 g 97 % 97 % 74 /min 22 /min BLANCA BERNAL [facility] 5 11:02:23 Date Recorded Body height Body mass index (BMI) Body weight Oxygen saturation Oxygen saturation in Arterial blood by Pulse oximetry Heart rate Respiratory rate Body temperature Systolic And Diastolic Provider Name and Address Organization Details Last Updated DateTime 5 157.48 cm 34 kg/m2 00443.1 8 g 98 % 98 % 101 /min 16 /min 98.2 [degF] 132/74 mm[Hg] Tish Belle [facility] 5 14:10:52 Date Recorded Body height Body mass index (BMI) Body weight Oxygen saturation Oxygen saturation in Arterial blood by Pulse oximetry Heart rate Respiratory rate Systolic And Diastolic Provider Name and Address Organization Details Last Updated DateTime 5 157.48 cm 34.4 kg/m2 90940.3 7 g 95 % 95 % 106 /min 20 /min 140/88 mm[Hg] BLANCA BERNAL [facility] 15:33:23 Date Recorded Body height Body mass index (BMI) Body weight Heart rate Respiratory rate Body temperature Oxygen saturation Oxygen saturation in Arterial blood by Pulse oximetry Inhaled oxygen flow rate Systolic And Diastolic Provider Name and Address Organization Details Last Updated DateTime 5 157.48 cm 34.8 kg/m2 91934.5 5 g 98 /min 18 /min 98 [degF] 96 % 96 % 2 L/min 140/80 mm[Hg] JOAN BARKLEY [facility] 5 12:02:56 Date Recorded Body height Body mass index (BMI) Body weight Oxygen saturation Oxygen saturation in Arterial blood by Pulse oximetry Inhaled oxygen flow rate Heart rate Respiratory rate Systolic And Diastolic Provider Name and Address Organization Details Last Updated DateTime 5 157.48 cm 34.4 kg/m2 40392.3 7 g 98 % 98 % 2 L/min 92 /min 22 /min 118/78 mm[Hg] BLANCA BERNAL [facility] 5 14:37:43 Social History Question Answer Notes LastModified by Sudiksha Details LastModified Time Tobacco Smoking Status Never Smoker BLANCA BERNAL [facility] 11/12/2022 16:04:33 What Was The Date Of Your Most Recent Tobacco Screening? 06/01/2024 Information not available 06/01/2024 Sex: Unknown Functional Status Question Answer Note LastModified by Sudiksha Details LastModified Time Do you use any illicit or recreational drugs? No [email or web address] Information not available 11/28/2023 Do you or have you ever used any other forms of tobacco or nicotine? No Information not available 03/28/2024 What is your level of alcohol consumption? Occasional [email or web address] Information not available 11/12/2022 Are you currently employed? No Trying to get disability Information not available 06/27/2024 Are you able to walk? YESWOREST [email or web address] Information not available 06/27/2024 Are you able to care for yourself? Yes Information not available 11/28/2023 Do you or have you ever used any nicotine-free cigarettes, vape, or chewing tobacco? No Information not available 03/28/2024 Mental Status None recorded. Family History Relationship Description Onset Age of this Age Resolved Age Notes LastModified by Organization Details LastModified Time Father Myocardial infarction Not available 10/29 16:03:25 Father Essential hypertension [email or web address] Not available 16:03:34 Father Diabetes mellitus Not available 11/27 01:06:41 Mother Essential hypertension [email or web address] Not available 16:03:48 Medical History Condition Response Depression Y Diabetes Y Stroke Y Asthma Y Reflux/GERD Y High Cholesterol Y Headaches Y Hypertension Y Gynecological HistoryNo gynecological history recorded. Obstetrics History GPAL:G 0 P 0 0 0 0 Immunizations Vaccine Type Date Status Note Provider Nam e and Address Organization Details Recorded Time IPV 3 JEFFERY Delarosa [address] [place], [address], [facility], [place] 11/12/2022 16:15:20 IPV 8 [email or web address] EGAN [facility] [address] [place], [address], [facility] [place], [place] 11/12/2022 16:15:20 IPV 6 [email or web address] [facility] [address] [place], [address], [facility] 11/12/2022 16:15:20 IPV 2 MICHELLE DelarosaP [address] [place], [address], [facility] 11/12/2022 16:15:20 MMR 3 completed SUZETTE JULISA, [facility] [address] [place], [address], [facility] 11/12/2022 16:15:20 MMR 6 completed SUZETTE JULISA, [facility] [address] [place], [address], [facility] 11/12/2022 16:15:20 Tdap 9 completed SUZETTE JULISA, [facility] [address] [place], [address], [facility] 11/12/2022 16:15:20 Tdap 6 completed SUZETTE JULISA, [facility] [address] [place], [address], [place] [facility] 11/12/2022 16:15:20 DTP 3 completed SUZETTE JULISA, [facility] [address] [place], [address], [facility] 11/12/2022 16:15:20 DTP 8 completed SUZETTE JULISA, [facility] [address] [place], [address], [facility] 11/12/2022 16:15:20 DTP 6 completed SUZETTE JULISA, [facility] [address] [place], [address], [facility] 11/12/2022 16:15:20 DTP 2 completed SUZETTE JULISA, [facility] [facility] [address] [place], [address], [place] [facility], [place] 11/12/2022 16:15:20 DTP 2 completed MICHELLE GARNERP [address] [place], [address], [place] [facility], [place] 11/12/2022 16:15:20 Pneumococcal conjugate PCV21, polysaccharide IZR003 conjugate, PF 5 completed Not Available [facility] 11/16/2024 14:19:58 zoster recombinant 5 completed Not Available [facility] 11/16/2024 14:19:58 Td(adult) unspecified formulation 3 completed Not Available [facility] 07/06/2023 11:13:10 Past Encounters Encounter ID Performer Location Encounter Start Date Encounter Closed Date Diagnosis/Indication Diagnosis SNOMED-CT Code Diagnosis ICD10 Code Diagnosis Note [id number] MARIO WAGNER PA-C [facility] ([facility]) [address] [place] [address] 09/11/2022 13:22:04 09/17/2022 11:56:50 Acute otitis externa 71049687 H60.509 canal more swollen. TM looks clear. Will try drops and finish her oral antibiotic s JEFFERY GARNER [facility] ([facility]) [address] [place] [address] 11/12/2022 15:34:03 11/24/2022 16:44:06 Pain of right ankle joint 2980235751 9370907 M25.571 Changing c olor of pigmented skin lesion 237319318 L98.8 Hyperlipidemia 77361470 E78.5 Type 2 rod betes mellitus 52070241 E11.9 Pain of mu ltiple joints 94194422 M25.50 Previous elevated of CRP, RA negative, concern for fibromyalg ia. JEFFERY BOND [facility] ([facility]) [address] [place] [address] 11/15/2022 16:49:55 12/01/2022 15:34:13 Allergic reaction 023068963 T78.40XA No signs of airway distress, swelling of lips, tongue or throat noted in clinic today. Educated patient on avoiding known triggers of allergic reactions. Discussed to take OTC benadryl when you arrive at home and continue taking as the label directs until the rash has cleared. Follow up if you develop a worsening rash, difficulty breathing, difficulty swallowing , fever or symptoms worsen. Discussed taking OTC Zyrtec or allergy medicine daily for 1-2 weeks or until the rash resolves. Follow up with PCP in 2-3 weeks. Return to clinic if any changes, any worsening, any concerns.P atient verbalized understand ing of plan. [id number] JEFFERY GARNER [facility] ([facility]) [address] [place] [address] 01/28/2023 11:32:41 01/28/2023 13:00:31 Type 2 diabetes mellitus 21052298 E11.9 Overactive urinary bladder due to prolapse of female genital organ 588639158 N32.81 Surgery scheduled for 02/16. [id number] JEFFERY GARNER [facility] ([facility]) [address] [place] [address] 02/10/2023 15:09:00 02/10/2023 17:45:[id number] [facility] ([facility]) [address] [place] [address] 04/27/2023 11:38:09 04/27/2023 18:54:24 Abscess of skin and/or subcutaneous tissue 31363526 L02.91 Start doxycyclin e BID today and mupirocin TID. Keep area clean. Discussed worsening signs of infection including increased erythema, purulent drainage, fever, and streaking. If these symptoms occur, patient should return for further evaluation . If not improving or worsening condition in 5-7 days, return for further evaluation . Patient verbalizes understand ing. [id number] JEFFERY GARNER [facility] ([facility]) [address] [place] [address] 05/11/2023 10:54:56 05/11/2023 12:12:06 Diabetes mellitus 27042829 E11.9 Home readings have been good. Nasal congestion 6429443 0 R09.81 Patient reports her grandchild chela have had the flu. Bronchitis 86167911 J40 [id number] SUZETTE EGAN [facility] ([facility]) [address] [place] [address] 07/06/2023 11:11:48 07/07/2023 09:36:37 Depressive disorder 86702983 F32.A Patient is willing to try something for increased anxiety, continues on fluoxetine . 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 Patient will call back if not controllin g flare ups. Generalize d aches and pains 00499058 R52 Patient is willing to continue with Celebrex as needed for pain. Patient will call if not helping with pain. Type 2 rod betes mellitus 91681155 E11.9 Recheck a1c, kidney function Malaise and fatigue 2717 16739 R53.83 Check TSH and CBC. Generalize d anxiety disorder 34481831 F41.1 [id number] SUZETTE EGAN [facility] [employer] ([facility]) [address] [place] [address] 08/19/2023 13:34:55 09/09/2023 09:05:09 Fibromyalgia 314988593 M79.7 Working to get help with her home. She has decreased her working hours due to pain. [id number] SUZETTE EGAN [employer] [employer] ([facility]) [address] [place] [address] 12/07/2023 16:12:14 12/09/2023 10:02:20 Essential hypertension 72808943 I10 Type 2 rod betes mellitus 16744011 E11.9 Hyperlipidemia 08793183 E78.5 Last LDL in Jul was 196 Chest pain 39285979 R07. 9 Fibromyalgia 479317705 M 79.7 Working to get help with her home. She has decreased her working hours due to pain. Asthma 946011501 J45.90 9 Struggles especially during the winter months. Nebulizer to be used with albuterol every 4-6 hours as needed. Decreased hearing 030117 [address] Acevedo [id number] JEFFERY BONILLA [facility] ([facility]) [address] [place] [address] 02/15/2024 12:58:21 02/15/2024 15:00:08 Cat scratch injury 764364879 W55.03XA Discussed use of antibiotic . Wash the abrasions with soap and water daily. may apply antibiotic ointment. Contact dermatitis 77913 004 L25.9 IM steroid administer ed to help with pruritis Chronic ob structive pulmonary disease 61386062 J44.9 inhaler refill provided. [id number] JEFFERY GARNER [facility] ([facility]) [address] [place] [address] 03/28/2024 11:36:39 03/28/2024 13:11:25 Chronic obstructive pulmonary disease 49596925 J44.9 Generalize d anxiety disorder 82349945 F41.1 Gastroesop hageal reflux disease without esophagitis 672824642 K21.9 Generalize d aches and pains 95039753 R52 Patient is willing to continue with Celebrex as needed for pain. Patient will call if not helping with pain. Herpes sim plex type 2 infection 011972150 B00.9 Patient is willing to continue on acyclovir for flare ups. Patient will call back if not controllin g flare ups. Mild inter mittent asthma 475868002 J45.20 Difficulty swallowing 28 0967316 R13.10 Hypoglycemia 323620052 E 16.2 One event recently, encouraged her to get a sugar packet and keep it handy in case she has a low again. She reports he was down to 69. Pain of ri ght shoulder joint 1819771891 8799718 M25.511 Celebrex daily. Screening mammography 24 842395 Z12.31 Type 2 rod betes mellitus 78389837 E11.9 She thinks eye exam was last year. Depressive disorder 9181 2854 F32.A Going through her grandmothe r's things now, mother is chronicall y ill. Fibromyalgia 488586740 M 79.7 She is no longer working, trying to get disability , caring for mother as well. Obstructiv e sleep apnea syndrome 41873264 G47.33 Wears CPAP nightly. [id number] JEFFERY GARNER [facility] ([facility]) [address] [place] [address] 06/01/2024 10:46:38 06/01/2024 12:06:40 Pain of right shoulder joint 0732690413 5612391 M25.511 Celebrex daily. Home exercises given in February. PT has been denied by insurance. Xray ordered. Osteophyte of bone 05147 88361 09670 M77.9 Seen during Barium swallow. Essential hypertension 57012688 I10 Type 2 rod betes mellitus 96293544 E11.9 She thinks eye exam was last year. Acute urin viki tract infection 461391726 N39.0 [id number] [address] GARNER [facility] ([facility]) [address] [place] [address] 06/27/2024 10:57:43 06/27/2024 11:57:36 Difficulty swallowing [id number] R13.10 Gastroesop hageal reflux disease [id number] K21.9 Continue pantoprazo le. Chronic ob structive pulmonary disease [id number] J44.9 Continue Advair. Herpes sim plex type 2 infection [id number] B00.9 [id number] Venkat Torres MD [facility] ([facility]) [address] [place] [address] [phone] 07/13/2024 13:56:42 07/20/2024 07:33:29 Acute conjunctivitis of left eye [id number] H10.32 Start antibiotic eyedrops. Follow-up if symptoms do not improve or worsen. Swelling of lower leg 44 [id number] R22.42 continue with doppler ordered by dr. Garnett [id number] JEFFERY GARNER [facility] ([facility]) [address] [place] [address] [phone] 09/14/2024 15:23:18 09/14/2024 16:24:53 Constipation [id number] K59.00 GI doctor recommende d increasing Miralax to BID Acute bronchitis [id number] J20.9 Callus of heel [id number] L84 Lotion. [id number] MARIO WAGNER PA-C [facility] ([facility]) [address] [place] [address] [phone] 5 10/19/2024 11:48:36 10/19/2024 13:01:50 Pneumonia [id number] J18.9 records reviewed. meds reconciled . She is improving. f/u in one month with CXR prior for f/u resolution and then see if she can come off the O2. Post-disch arge follow-up [id number] Z09 Impingemen t syndrome of right shoulder region [id number] M75.41 post op 1 week. healing well. will f/u with Dr. Hall on October 30 [id number] JEFFERY GARNER [facility] ([facility]) [address] [place] [address] 11/16/2024 14:19:27 11/16/2024 15:05:14 Pneumonia [id number] J18.9 Continue on oxygen at this time. Will discuss how to wean off. Will contact her with xray results. Sebaceous cyst of skin [id number] L72.3 Punctured with needle and expressed. Health Concerns Section Related Observation LastModified by Organization Detai ls LastModified Time None Recorded Concern Status LastModified by Organization Details LastModified Time None Recorded Advance Directives Directive None Recorded Payers Insurance Date Sequence Insurance Name Policy Number Policy Waters Covered Member ID Waters Member ID Guarantor Name 11/13/2024 MEDICAID-ID: [facility] [place] Gale Veloz [id number] Gale Veloz 09/11/2022 1 *SELF PAY* [place] 11/13/2024 1 MEDICAID-ID (MEDICAID) Gale Veloz [id number] Gale Veloz Notes Date Note Type Note Provider Name and Address Organization Details Recorded Time 06/27/2024 text/html Reflux/GERDRepor jake bypatient.Quality:bud burk Severity:worsening Duration:present 5 or more years Onset/Timing:daily Context:non-smoker; no drug/alcohol abuse Aggravating Factors:acidic foods Associated Symptoms:heartburn;de creased appetite JEFFERY GARNER [address] [place] [address], [phone], [facility], [place]ex[place]armjit 06/27/2024 11:57:30 07/13/2024 text/html walk in patientpatient is here today for left eye is itchy and sore that started 2 days ago. Patient states that she has had conjunctivitis in the past and this is the same symptoms she has had previously. Patient aslo wanted to discuss left leg pain and swelling. The patient was seen by Dr. Alonso and he is ordering a venous Doppler. Venkat Torres MD [address] [place], [phone], [facility], [place] 07/19/2024 10:29:53 09/14/2024 text/html CoughReported bypatient.Quality:dry Severity:moderate Duration:intermittent ; acute (<3 weeks) Context:worse at night; history of bronchitis Associated Symptoms:no fever; no nausea; no vomitingGeneral Rash/Skin LesionReported bypatient.Location:[facility]; other: () Quality:flaking Severity:mild Duration:has noted for >3 months JEFFERY GARNER [address] [place], [address], [facility], [place] 09/18/2024 11:40:17 10/19/2024 text/html DyspneaReported bypatient.Quality:pre ssure;can't catch breath;breathlessness ;inability to take a deep breath;hurts to breathe Severity:moderate; oxygen dependent Duration:for 1 weeks Onset/Timing:daily Pulmonary Disease History:COPD Alleviating Factors:oxygen hospital follow up sob started on 02Pt went in for scheduled shoulder clean up and had a hard time coming out of anestesia. she was found to the right lower and middle lobe pneuomia. She says she was sick before surgeryDischarged on cefdinir and Zpack and O2D dimer was normal.minimal cough. still SOB. no fever. MARIO WAGNER PA-C [address] [place], [phone], [facility], [place] 10/19/2024 12:58:59 OBGyn Episode No OBEpisode recorded.
[2024-12-05 22:27] VITALS: BP 153/85; PULSE 101; RESP 22; TEMP 36.8; O2SAT 2; BMI 34.9
[2024-12-05 23:49] VITALS: BP 134/90; PULSE 96; RESP 16; O2SAT 96
[2024-12-05 23:53] LABS: Hematocrit 47.7 % (36-47); Hemoglobin 15.70 g/dL (11.27-16.99); Mean Corpuscular HGB Conc 32.9 g/dL (30-55); Mean Corpuscular Hemoglobin 29.3 pg (27-33); Mean Corpuscular Volume 89.0 fl (85-98); Nucleated Red Blood Cells % 0 %; Platelet Count 342 10^3/cmm (157-399); Red Blood Count 5.36 10^6/uL (3.85-5.65); White Blood Count 12.26 10^3/uL (3.29-11.43)
--- NOTE | 2024-12-05 23:56 | CTR_ITS ---
PROCEDURE INFORMATION: Exam: CTA Chest With Contrast Exam date and time: 12/06/2024 12:49 AM Age: 54 years old Clinical indication: Dyspnea; Additional info: SOB, tachy, recent surgery TECHNIQUE: Imaging protocol: Computed tomographic angiography of the chest with contrast. Exam focused on the arteries. 3D rendering (Not supervised by radiologist): MIP and/or 3D reconstructed images were created by the technologist. Radiation optimization: All CT scans at this facility use at least one of these dose optimization techniques: automated exposure control; mA and/or kV adjustment per patient size (includes targeted exams where dose is matched to clinical indication); or iterative reconstruction. Contrast material: OMNI 350; Contrast volume: 100 ml; Contrast route: INTRAVENOUS (IV); COMPARISON: CR XR chest 2V* [id number] 11/16/2024 1:10 PM RADIATION DOSE METRICS: Total DLP (mGy-cm): 406.32 FINDINGS: Pulmonary arteries: No evidence of pulmonary artery emboli. Aorta: Thoracic aorta is within normal limits. Thyroid: Partially imaged thyroid is normal in appearance. Lungs: No focal consolidation. Pleural spaces: No pleural effusion. No pneumothorax. Heart: Heart is normal in size. No pericardial effusion. Lymph nodes: No distinct pathologically enlarged lymphadenopathy. Bones/joints: No acute osseous findings. Soft tissues: Visualized superficial soft tissues are within normal limits. CT/CT angio chest PE protcl [id number] IMPRESSION: 1. No evidence of pulmonary artery emboli. 2. No acute pathologic findings in the chest.
--- NOTE | 2024-12-05 23:57 | ED_ITS ---
HPI - Chest Pain 2 General: Chief Complaint: Chest Pain Stated Complaint: CP SOB L fingers and arm was numb last night Time Seen by Provider: 12/05/24 23:47 History of Present Illness: Patient comes in with chest pain. States that for the past few days she has had persistent left-sided chest pain which she describes as pressure/sharp, radiating to her left arm last night but resolved. States the chest pain has been constant for the past 3 days without resolution. Denies coronary artery disease history. States she did have surgery a couple months ago and since then she has had some tachycardia. Upon arrival here the patient is tachycardic. Will check labs, give IV fluids, check EKG, CTA chest, and reassess. Associated symptoms: Deny abdominal pain, dyspnea, fever(s), nausea or vomiting Related Data Home Medications ?Medication ?Instructions ?Recorded ?Confirmed aspirin 81 mg tablet,delayed 81 mg PO DAILY 07/21/21 0 11/27/24 release metformin 500 mg tablet 1,000 mg PO BID 12/27/22 oxybutynin chloride 10 mg 10 mg PO DAILY 12/27/2210/31 tablet,extended release 24 hr Previous Rx's ?Medication ?Instructions ?Recorded pen needle, diabetic 32 gauge x #100 ea 05/02/21 nitroglycerin 0.4 mg sublingual 0.4 mg sublingual Q5M PRN Chest 06/15/22 tablet (Nitrostat) Pain #25 tabs acetaminophen 325 mg capsule 325 mg PO Q4H PRN fever o r pain 02/17/23 #60 caps polyethylene glycol 3350 17 See Rx Instructions .Route 11/16/23 gram/dose oral powder .COMPLEX #510 grams albuterol sulfate 2.5 mg/3 mL 2.5 mg (3 mL) inhalation QID PRN 12/23/23 (0.083 %) solution for nebulization shortness of breat h or wheezing #180 mL albuterol sulfate 90 mcg/actuation 2 puff inhalation Q 6H PRN 12/23/23 aerosol inhaler shortness of breath or wheez ing #16 grams fluticasone 500 mcg-salmeterol 50 1 inh inhalation BID #60 ea 12/23/23 mcg/dose blistr powdr for inhalation (Advair Diskus) tiotropium bromide 18 mcg capsule 1 cap inhalation RAYMUNDO LY #90 07/25/24 with inhalation device (Spiriva inhalations with HandiHaler) ondansetron 4 mg disintegrating 4 mg PO Q8H PRN nausea and 05/20/24 tablet vomiting #14 tabs fluoxetine 20 mg/5 mL (4 mg/mL) 80 mg (20 mL) PO .q am #600 mL 09/14/24 oral solution mupirocin 2 % topical ointment 1 applic topical TID 7 days #15 10/01/24 (Centany) grams benzonatate 100 mg capsule 200 mg (2 x 100 mg) PO TID PRN 10/15/24 Cough #60 caps cefdinir 300 mg capsule 300 mg PO BID #12 caps 10/15 fluticasone propionate 50 2 spray intranasal DAILY #1 g 10/15/24 mcg/actuation nasal spray,suspension guaifenesin 600 mg tablet, 1,200 mg (2 x 600 mg) PO BI D #60 10/15/24 extended release 12 hr (Mucinex) tabs hydrocodone 5 mg-acetaminophen 325 1 tab PO Q4H PRN Mo derate Pain #10 10/15/24 mg tablet tabs cholecalciferol (vitamin D3) 1,250 See Rx Instructions .Route 11/10/24 mcg (50,000 unit) capsule .COMPLEX #14 caps dulaglutide 0.75 mg/0.5 mL See Rx Instructions .Route 11/21/24 subcutaneous pen injector .COMPLEX #4 mL (Trulicity) folic acid 1 mg tablet 1 mg PO DAILY #30 tabs 11/21 hydroxychloroquine 200 mg tablet 200 mg PO BID #180 ta bs 11/21/24 (Plaquenil) methotrexate sodium 25 mg/mL 15 mg (0.6 mL) IM .Q7days #10 mL 11/21/24 injection solution syringe with needle, safety 1 mL #25 ea 11/22/24 28 gauge x 1/2 (Monoject TB Safety Syringe) Allergies Allergy/AdvReac Type Severity Reaction Status Date / Time raspberry Allergy Severe closes up Verified 11/27/24 09:29 throat venom-wasp Allergy Severe ALGY-Anaphy Verified 11/27/24 09:29 laxis codeine Allergy ALGY-Difficulty Verified 11/27/24 09:29 Breathing Penicillins Allergy ALGY-Rash Verified 11/27/24 09:29 Sulfa (Sulfonamide Allergy ALGY-Rash Verified 11/27/24 09:29 Antibiotics) Review of Systems 2 Const: Denies: fever(s) or body aches Resp: Denies: dyspnea or productive cough GI: Denies: abdominal pain, nausea or vomiting Musc: Denies: neck pain or back pain Skin/Breast: Denies: rash or pruritus PFSH ED 2 PFSH: Medical History (Updated 12/06/24 @ 02:24 by Kyle Maya MD) Seronegative rheumatoid arthritis of both hands Depression, major, recurrent, mild Osteoarthritis of acromioclavicular joint Obesity (BMI 30.0-34.9) Diabetes type 2, uncontrolled Tendinopathy of right shoulder Impingement of right shoulder High risk medication use DJD (degenerative joint disease) of cervical spine Polyarthralgia GERD (gastroesophageal reflux disease) Diabetes mellitus, controlled Psychiatric care YAIR (obstructive sleep apnea) Major depressive disorder, recurrent, moderate Depression COPD (chronic obstructive pulmonary disease) CVA (cerebral vascular accident) Surgical History S/P shoulder surgery Date of procedure: October 13, 2024 Pre-op diagnosis: Right shoulder impingement with resulting tendinopathy and osteoarthritis of the acromioclavicular joint Procedure done: Right acromioplasty with distal clavicle resection and bursal debridement Surgeon: Alyse Hall MD Status post cervical spinal fusion History of anterior colporrhaphy (~02/16/23) Anterior colporrhaphy augmented with allograft, single incision mid urethral sling, cystoscopy. Performed by Maco. History of colonoscopy History of tubal ligation Hx of oophorectomy H/O laparoscopy H/O: hysterectomy History of cholecystectomy Family History Father CAD (coronary artery disease) Cancer Diabetes Hyperlipidemia Mother Hypertension Psychiatric illness Brother Hypertension Social History Smoking and tobacco/nicotine status: unknown if used tobacco/nicotine Second hand smoke exposure: Yes Alcohol intake: current Alcohol intake frequency: holidays/special occasions only Alcohol type: other Substance/Drug Use: never Adopted: No Caregiver/support person: No Lives independently: Yes Household members: friend(s) Housing: Apartment Marital status: Number of children: 3 Number of grandchildren: 7 Highest education level completed: High School Graduate service: No Current occupational status: unemployed and other Details: daughter comes to help her Current occupational exposures/hazards: No Pets and animals: Yes (3 tiny dogs) Pets & animals: dog(s) Leisure activites: art and other Leisure activities details: watch TV Sexually active: No Do you think of yourself as: Straight/Heterosexual Current gender identity: Female Merced/Confucianist: Methodist Special merced needs: No Agree to transfusion: No (Jehova's Witness) Female Reproductive History: Para: 3 Spontaneous abortions: Yes (X 3) Physical Exam 2 Const: COMMON NORMALS: no acute distress and healthy appearing HENMT: COMMON NORMALS: normocephalic and atraumatic HEAD & SCALP: n ormocephalic and atraumatic Eye: COMMON NORMALS: Equal, round and reactive pupils present and EOMs intact bilaterally PUPIL: Yes Equal, round and reactive pupils present Neck/C-Spine: COMMON NORMALS: full ROM and supple Resp: COMMON NORMALS: normal respiratory effort, No retractions and No use of accessory muscles Cardio: COMMON NORMALS: regular rhythm RHYTHM: regular rhythm OTHER: Tachycardia GI: COMMON NORMALS: Normal to inspection, nondistended, normoactive bowel sounds present, Soft to palpation and non-tender PALPATION: Yes Soft to palpation Extremity: COMMON NORMALS: normal to inspection and full ROM Skin: COMMON NORMALS: no rashes or lesions noted and no wounds GENERAL SKIN EXAM: no rashes or lesions noted Course 2 Vital Signs: Vital signs: Vital Signs Temperature 98.3 F 12/05/24 22:27 Pulse Rate 95 12/06/24 01:00 Respiratory Rate 16 12/06/24 01:00 Blood Pressure 118/66 12/06/24 01:00 Pulse Oximetry 96 12/06/24 01:00 Oxygen Delivery Me thod Room Air 12/06/24 01:00 MDM - Chest Pain Medical Decision Making On reassessment I talked with the patient about her test results. Her troponin is normal x 2. Her CTA shows no acute cardiopulmonary process. We discussed following up with her primary care physician. We also discussed symptoms that should prompt immediate return to the emergency department. Will discharge at this time with precautions to return for worsening or changing symptoms. Lab Data 12/05/24 23:43 12/05/24 23:43 Radiology Impressions Chest CTA 12/05/24 23:56 IMPRESSION: 1. No evidence of pulmonary artery emboli. 2. No acute pathologic findings in the chest. Laboratory Results WBC 12.26 10^3/uL (3.29-11.43) H 12/05/24 23:43 RBC 5.36 10^6/uL (3.85-5.65) 12/05/24 23:43 Hgb 15.70 g/dL (11.27-16.99) 12/05/24 23:43 Hct 47.7 % (36-47) H 12/05/24 23:43 MCV 89.0 fl (85-98) 12/05/24 23:43 MCH 29.3 pg (27-33) 12/05/24 23:43 MCHC 32.9 g/dL (30-55) 12/05/24 23:43 RDW 13.4 % (12.1-15.1) 12/05/24 23:43 Plt Count 342 10^3/cmm (157-399) 12/05/24 23:43 MPV 9.8 fL (7.4-10.4) 12/05/24 23:43 Neut % (Auto) 66.1 % 12/05/24 23:43 Lymph % (Auto) 23.2 % 12/05/24 23:43 [place] % (Auto) 6.9 % 12/05/24 23:43 Eos % (Auto) 2.8 % 12/05/24 23:43 Baso % (Auto) 0.7 % 12/05/24 23:43 Neut # (Auto) 8.10 10^3/uL (1.8-7.7) H 12/05/24 23:43 Lymph # (Auto) 2.9 10^3/uL (0.8-4.8) 12/05/24 23:43 [place] # (Auto) 0.8 10^3/uL (0.2-0.9) 12/05/24 23:43 Eos # (Auto) 0.3 10^3/uL (0.0-0.8) 12/05/24 23:43 Baso # (Auto) 0.1 10^3/uL (0.0-0.1) 12/05/24 23:43 Nucleated RBC % (auto) 0 % 12/05/24 23:43 Nucleated RBCs # 0.0 /100WBC 12/05/24 23:43 PT 12.10 SECONDS (12.1-14.9) 12/05/24 23:43 INR 0.84 (0.8-1.2) 12/05/24 23:43 Sodium 141 mmol/L (136-145) 12/05/24 23:43 Potassium 4.0 mmol/L (3.5-5.1) 12/05/24 23:43 Chloride 99 mmol/L (98-107) 12/05/24 23:43 Carbon Dioxide 29 mmol/L (22-29) 12/05/24 23:43 Anion Gap 17.0 (5-19) 12/05/24 23:43 BUN 13 mg/dL (6-20) 12/05/24 23:43 Creatinine 1.2 mg/dL (0.5-0.9) H 12/05/24 23:43 GFR Calculation 47.0 mL/min (90-130) L 12/05/24 23:43 Glucose 106 mg/dL (65-115) 12/05/24 23:43 Calculated Osmolality 293 mOsm/kg (285-295) 12/05/24 23:43 Calcium 9.8 mg/dL (8.5-10.5) 12/05/24 23:43 Total Bilirubin 0.3 mg/dL (0.15-1.2) 12/05/24 23:43 AST 22 U/L (0-32) 12/05/24 23:43 ALT 31 U/L (0-33) 12/05/24 23:43 Alkaline Phosphatase 148 U/L (35-105) H 12/05/24 23:43 Troponin T Baseline < 6 ng/L (0-10) 12/05/24 23:43 Troponin T 120 Minute < 6.0 ng/L (0-10) 12/06/24 01:47 Delta Troponin T 0 ABS# (0-10) 12/06/24 01:47 NT-Pro-B Natriuret Pep < 36 pg/mL (0-125) 12/05/24 23:43 Total Protein 8.0 g/dL (6.6-8.7) 12/05/24 23:43 Albumin 4.6 g/dL (3.5-5.2) 12/05/24 23:43 Globulin 3.4 g/dL (1.3-4.6) 12/05/24 23:43 All radiology interpretation(s) finalized by discharge Discharge Plan Discharge Patient Disposition: Home Clinical Impression: Chest pain Condition: Stable Prescriptions: No Action nitroglycerin [Nitrostat] 0.4 mg tablet, sublingual 0.4 mg SUBLINGUAL Q5M PRN (Reason: Chest Pain) Qty: 25 3RF fluticasone propion-salmeterol [Advair Diskus] 500-50 mcg/dose blister with device 1 inh inhalation BID Qty: 60 3RF Spiriva with HandiHaler 18 mcg capsule, w/inhalation device 1 cap INHALATION DAILY Qty: 90 3RF Rx Instructions: puncture 1 cap using device; one dose = 2 inhalations albuterol sulfate 90 mcg/actuation HFA aerosol inhaler 2 puff inhalation Q6H PRN (Reason: shortness of breath or wheezing) Qty: 16 0RF albuterol sulfate 2.5 mg /3 mL (0.083 %) solution for nebulization 2.5 mg inhalation QID PRN (Reason: shortness of breath or wheezing) Qty: 180 2RF cholecalciferol (vitamin D3) 1,250 mcg (50,000 unit) capsule See Rx Instructions .ROUTE .COMPLEX Qty: 14 0RF Rx Instructions: 50,000 units once a week; methotrexate sodium 25 mg/mL solution 15 mg IM .Q7days Qty: 10 1RF hydroxychloroquine [Plaquenil] 200 mg tablet 200 mg PO BID Qty: 180 1RF folic acid 1 mg tablet 1 mg PO DAILY Qty: 30 4RF mupirocin [Centany] 2 % ointment 1 applic topical TID 7 Days Qty: 15 0RF fluoxetine 20 mg/5 mL (4 mg/mL) solution 80 mg PO .q am Qty: 600 3RF Rx Instructions: Take 80 mg daily (20 ml) once daily every morning (DME) pen needle, diabetic 32 gauge x /32 needle See Rx Instructions .Route Qty: 100 3RF Rx Instructions: As directed polyethylene glycol 3350 17 gram/dose powder See Rx Instructions .ROUTE .COMPLEX Qty: 510 1RF Dose Instruction: MIX 17 GRAMS OF POWDER IN 8 OUNCES OF LIQUID AND DRINK ONCE DAILY Rx Instructions: MIX 17 GRAMS OF POWDER IN 8 OUNCES OF LIQUID AND DRINK ONCE DAILY Trulicity 0.75 mg/0.5 mL pen injector See Rx Instructions .ROUTE .COMPLEX Qty: 4 0RF Dose Instruction: INJECT 0.75MG SUBCUTANEOUSLY ONCE A WEEK Rx Instructions: INJECT 0.75MG SUBCUTANEOUSLY ONCE A WEEK (DME) Monoject TB Safety Syringe 1 mL 28 gauge x 1/2 syringe See Rx Instructions .ROUTE .MEDSUPPLY Qty: 25 1RF Rx Instructions: As directed aspirin 81 mg Tablet,Delayed Release (Dr/Ec) 81 mg PO DAILY metformin 500 mg tablet 1,000 mg PO BID oxybutynin chloride 10 mg tablet extended release 24hr 10 mg PO DAILY acetaminophen 325 mg capsule 325 mg PO Q4H PRN (Reason: fever or pain) Qty: 60 0RF ondansetron 4 mg tablet,disintegrating 4 mg PO Q8H PRN (Reason: nausea and vomiting) Qty: 14 0RF hydrocodone-acetaminophen 5-325 mg Tablet 1 tab PO Q4H PRN (Reason: Moderate Pain) Qty: 10 0RF benzonatate 100 mg Capsule 200 mg PO TID PRN (Reason: Cough) Qty: 60 0RF fluticasone propionate 50 mcg/actuation [place],Suspension 2 spray intranasal DAILY Qty: 1 0RF guaifenesin [Mucinex] 600 mg Tablet Extended Release 12hr 1,200 mg PO BID Qty: 60 0RF cefdinir 300 mg capsule 300 mg PO BID Qty: 12 0RF Discharge Orders: Discharge ED (Routine); Ordered 12/06/24 Ordered By: Kyle Maya Referrals: Suzette Bowman FNP [Primary Care Provider, Unknown] Patient Instructions: Chest Pain (ED), Patient Portal & [place] Instructions Print Language: Upper Sorbian Coding Level of Care Code ED Spice Room Worker for Toni Ramírez
[2024-12-06 00:02] LABS: INR 0.84 (0.8-1.2); Prothrombin Time 12.10 SECONDS (12.1-14.9)
[2024-12-06 00:15] LABS: Troponin(5th) Baseline < 6 ng/L (0-10)
[2024-12-06 00:23] LABS: Alanine Aminotransferase 31 U/L (0-33); Albumin Level 4.6 g/dL (3.5-5.2); Alkaline Phosphatase 148 U/L (35-105); Anion Gap 17.0 (5-19); Aspartate Amino Transferase 22 U/L (0-32); Blood Urea Nitrogen 13 mg/dL (6-20); Calcium 9.8 mg/dL (8.5-10.5); Carbon Dioxide 29 mmol/L (22-29); Chloride 99 mmol/L (98-107); Creatinine Clr Calc Pharmacy 55.3892; Globulin 3.4 g/dL (1.3-4.6); Glucose 106 mg/dL (65-115); NT Pro B Type Natriuretic Pept < 36 pg/mL (0-125); Osmolality Calculated 293 mOsm/kg (285-295); Potassium 4.0 mmol/L (3.5-5.1); Sodium 141 mmol/L (136-145); Total Protein 8.0 g/dL (6.6-8.7)
[2024-12-06] MEDS: iohexol 350 mg/mL 500 mL Btl (per mL) IV (00:52)
[2024-12-06 01:00] VITALS: BP 118/66; PULSE 95; RESP 16; O2SAT 96
[2024-12-06 02:00] VITALS: BP 120/76; PULSE 93; RESP 16; O2SAT 95
[2024-12-06 02:15] LABS: Troponin 5 2HR < 6.0 ng/L (0-10); Troponin 5 2HR Delta 0 ABS# (0-10)
[2024-12-06 02:44] VITALS: BP 120/76; PULSE 90; RESP 16; O2SAT 95
== END 2024-12-06 02:48 | disposition home or self-care (01) ==
PROVIDERS: Emergency Provider Emergency Medicine; PCP Nurse Practitioner Family
DX: R07.9 Chest pain, unspecified (principal); Z79.82 Long term (current) use of aspirin; Z79.84 Long term (current) use of oral hypoglycemic drugs; J44.9 Chronic obstructive pulmonary disease, unspecified; Z86.73 Personal history of transient ischemic attack (TIA), and cerebral infarction without residual deficits; E11.9 Type 2 diabetes mellitus without complications
CPT/HCPCS: 36415; 71275; 80053; 83880; 84484; 85025; 85610; 93005; 96374; 99285; J1885; J7030

== ENCOUNTER → 2025-02-09 16:05 | Outpatient (BNVA) | payer MEDICAID, SELFPAY ==
[2024-11-17 11:14] VITALS: BP 119/60; BMI 35.1
== END ==
PROVIDERS: PCP Nurse Practitioner Family; Visit Provider Emergency Medicine
DX: R73.09 Other abnormal glucose (principal)
CPT/HCPCS: 82962

== ENCOUNTER → 2025-02-22 13:37 | Outpatient (BNVA) | payer MEDICAID, SELFPAY ==
[2024-11-17 11:14] VITALS: BP 119/60; BMI 35.1
== END ==
PROVIDERS: PCP Nurse Practitioner Family; Visit Provider Orthopaedic Surgery
DX: M54.2 Cervicalgia (principal); Z98.890 Other specified postprocedural states
CPT/HCPCS: 99214

== ENCOUNTER → 2025-02-26 11:36 | Outpatient (BNVA) | payer MEDICAID, SELFPAY ==
[2024-11-17 11:14] VITALS: BP 119/60; BMI 35.1
== END ==
PROVIDERS: PCP Nurse Practitioner Family; Visit Provider Nurse Practitioner
DX: M19.011 Primary osteoarthritis, right shoulder (principal); M25.811 Other specified joint disorders, right shoulder; M67.911 Unspecified disorder of synovium and tendon, right shoulder; Z47.89 Encounter for other orthopedic aftercare
CPT/HCPCS: 20610; 73030; 99214; J1100; J2795; J3301; J9999

== ENCOUNTER 2025-02-26 11:50 | Outpatient (CLI) | payer MEDICAID, SELFPAY ==
[2024-11-17 11:14] VITALS: BP 119/60; BMI 35.1
[2025-02-26 12:13] LABS: Hematocrit 42.3 % (36-47); Hemoglobin 14.30 g/dL (11.27-16.99); Mean Corpuscular HGB Conc 33.8 g/dL (30-55); Mean Corpuscular Hemoglobin 29.4 pg (27-33); Mean Corpuscular Volume 86.9 fl (85-98); Nucleated Red Blood Cells % 0 %; Platelet Count 298 10^3/cmm (157-399); Red Blood Count 4.87 10^6/uL (3.85-5.65); White Blood Count 8.85 10^3/uL (3.29-11.43)
[2025-02-26 12:31] LABS: Alanine Aminotransferase 20 U/L (0-33); Albumin Level 4.1 g/dL (3.5-5.2); Alkaline Phosphatase 120 U/L (35-105); Aspartate Amino Transferase 18 U/L (0-32); Globulin 3.7 g/dL (1.3-4.6); Total Protein 7.8 g/dL (6.6-8.7)
== END 2025-02-26 11:51 | disposition home or self-care (01) ==
LOC: LAB 11:51
PROVIDERS: Internal Medicine Rheumatology; PCP Nurse Practitioner Family; Visit Provider Internal Medicine
DX: Z79.899 Other long term (current) drug therapy (principal)
CPT/HCPCS: 36415; 80076; 82565; 85025; 85651; 86140

== ENCOUNTER → 2025-03-02 12:05 | Outpatient (BNVA) | payer MEDICAID, SELFPAY ==
[2024-11-17 11:14] VITALS: BP 119/60; BMI 35.1
== END ==
PROVIDERS: PCP Nurse Practitioner Family; Visit Provider Internal Medicine
DX: E55.9 Vitamin D deficiency, unspecified (principal); E11.9 Type 2 diabetes mellitus without complications
CPT/HCPCS: 36415; 80053; 80061; 82044; 82306; 83036

== ENCOUNTER → 2025-03-05 11:54 | Outpatient (BNVA) | payer MEDICAID, SELFPAY ==
[2025-03-07 08:10] VITALS: BP 139/93; BMI 34.6
== END ==
PROVIDERS: PCP Nurse Practitioner Family; Visit Provider Podiatrist Foot & Ankle Surgery
DX: E11.8 Type 2 diabetes mellitus with unspecified complications (principal); E11.42 Type 2 diabetes mellitus with diabetic polyneuropathy; I73.9 Peripheral vascular disease, unspecified; M21.6X9 Other acquired deformities of unspecified foot; Z87.2 Personal history of diseases of the skin and subcutaneous tissue; L85.3 Xerosis cutis; Z79.84 Long term (current) use of oral hypoglycemic drugs
CPT/HCPCS: 99213

== ENCOUNTER → 2025-03-15 09:24 | Outpatient (BNVA) | payer MEDICAID, SELFPAY ==
[2025-03-07 08:10] VITALS: BP 139/93; BMI 34.6
== END ==
PROVIDERS: PCP Nurse Practitioner Family; Visit Provider Internal Medicine
DX: J98.4 Other disorders of lung (principal); J44.89 Other specified chronic obstructive pulmonary disease; J45.50 Severe persistent asthma, uncomplicated; G47.33 Obstructive sleep apnea (adult) (pediatric); R91.8 Other nonspecific abnormal finding of lung field; Z99.81 Dependence on supplemental oxygen; Z99.89 Dependence on other enabling machines and devices; Z86.73 Personal history of transient ischemic attack (TIA), and cerebral infarction without residual deficits; J44.9 Chronic obstructive pulmonary disease, unspecified; T78.40XA Allergy, unspecified, initial encounter; X58.XXXA Exposure to other specified factors, initial encounter; J96.10 Chronic respiratory failure, unspecified whether with hypoxia or hypercapnia
CPT/HCPCS: 36415; 85025; 86003; 99214; Q3014

== ENCOUNTER 2025-03-21 14:15 | Outpatient (CLI) | payer MEDICAID, SELFPAY ==
[2025-03-07 08:10] VITALS: BP 139/93; BMI 34.6
--- NOTE | 2025-03-21 14:00 | CT_ITS ---
WS: [id number] CT CHEST CT-HIGH RESOLUTION, NONCONTRAST. Examination: CT chest w/o HI-Res(Pulm Only) Order Date: 03/21/2025 2:22 PM Comparison: None. History: probable ILD/dyspnea DLP: CT_DOSE_DLP_TOTAL Technique: High-resolution chest CT is performed in inspiration, expiration, supine and prone positioning. All CT scans at [facility] use at least one of these dose optimization techniques: automated exposure control; mA and/or kV adjustment per patient size (includes targeted exams where dose is matched to clinical indication); or iterative reconstruction. Findings: Lungs are well aerated. No acute pulmonary infiltrates. No focal pneumonia or pleural fluid. No evidence of interstitial lung disease. No evidence of subpleural honeycombing. No traction bronchiectasis. Few small scattered subcentimeter nodules in both lungs the largest measuring 3 mm. Recommend 12-wed follow-up. Mild aortic calcification. Coronary calcification. No mediastinal or hilar lymphadenopathy. No axillary lymphadenopathy. Cholecystectomy clips. Small esophageal hiatal hernia. Food products in distended stomach. Adrenal glands are normal. Normal partially visualized noncontrast pancreas. CT/CT chest w/o HI-Res(Pulm Only) Impression: 1. No evidence of interstitial lung disease. No subpleural honeycombing or tra ction bronchiectasis. 2. No acute pulmonary infiltrates. No focal pneumonia or pleural fluid. 3. Coronary calcification. 4. Prior cholecystectomy. 5. Several scattered subcentimeter pulmonary nodules in both lungs largest cy suring 3 mm. Recommend 12-month follow-up chest CT. 6. No other acute findings.
== END 2025-03-21 14:16 | disposition home or self-care (01) ==
LOC: RAD 14:16
PROVIDERS: PCP Nurse Practitioner Family; Visit Provider Internal Medicine
DX: J96.10 Chronic respiratory failure, unspecified whether with hypoxia or hypercapnia (principal); I25.84 Coronary atherosclerosis due to calcified coronary lesion; Z90.49 Acquired absence of other specified parts of digestive tract; R91.8 Other nonspecific abnormal finding of lung field
CPT/HCPCS: 71250

== ENCOUNTER 2025-03-21 15:08 | Emergency (ER) | payer MEDICAID, SELFPAY ==
[2025-03-07 08:10] VITALS: BP 139/93; BMI 34.6
--- NOTE | 2025-03-21 15:09 | ECG_ITS ---
Miso Charge Payment Test Date: 2025-03-21 Pat Name: Gale Veloz Department: Room: Gender: Female Heel Wheeler: : 1970 Requested By: Darrell Anand Order Number: [id number] Sohail MD: Ace Nobles M.D. Measurements Intervals [place] Rate: 99 P: 62 ME: 171 QRS: 43 QRSD: 85 T: 49 QT: 326 QTc: 419 Interpretive Statements SINUS RHYTHM NONSPECIFIC ST & T-WAVE ABNORMALITY Compared to ECG 12/05/2024 22:08:41 Sinus tachycardia no longer present Possible ischemia no longer present T-wave abnormality still present Electronically Signed On 03-21-2025 16:51:44 CDT by Ace Nobles M.D. [email or web address]
--- NOTE | 2025-03-21 15:09 | XR_ITS ---
WS: [id number] Portable AP upright chest, 03/21/2025 Clinical Data: cp Comparison: Two-view chest, 02/15/2025 Findings: No nodules, masses or effusions are seen. The heart is normal. The pulmonary vascularity is not increased. No pneumonia or pneumothorax is seen. XR/XR chest 1V portable [id number] Impression: Negative chest.
[2025-03-21 15:11] VITALS: BP 138/83; PULSE 106; TEMP 36.6; O2SAT 97; BMI 34.0
[2025-03-21 15:35] LABS: Hematocrit 45.1 % (36-47); Hemoglobin 14.20 g/dL (11.27-16.99); Mean Corpuscular HGB Conc 31.5 g/dL (30-55); Mean Corpuscular Hemoglobin 28.7 pg (27-33); Mean Corpuscular Volume 91.3 fl (85-98); Nucleated Red Blood Cells % 0 %; Platelet Count 249 10^3/cmm (157-399); Red Blood Count 4.94 10^6/uL (3.85-5.65); White Blood Count 10.94 10^3/uL (3.29-11.43)
[2025-03-21 15:48] LABS: INR 0.82 (0.8-1.2); Prothrombin Time 11.90 SECONDS (12.1-14.9)
--- NOTE | 2025-03-21 15:51 | W.ED.CHESTPA ---
HPI - Chest Pain General: Chief Complaint: Chest Pain Stated Complaint: CP SOB Time Seen by Provider: 03/21/25 15:33 Source: patient Mode of arrival: ambulatory Limitations: no limitations History of Present Illness: 54-year-old female states she has a history of respiratory disease states she was getting outpatient CT scan of her chest todayshe had had some chest pain. States it was a burning type pain. Her pain has improved currently she denies any increase shortness of breath currently. States over the last 4 to 5 days she has had congestion cough denies any fever does wear 2 L at baseline has normal oxygen saturations here on her 2 L. Related Data Home Medications ?Medication ?Instructions ?Recorded ?Confirmed aspirin 81 mg tablet,delayed 81 mg PO DAILY 07/21/21 03/21/25 release metformin 500 mg tablet 1,000 mg PO BID 12/27/22 03/21/25 oxybutynin chloride 10 mg 10 mg PO DAILY 12/27/22 03/21/25 tablet,extended release 24 hr oxygen 03/15/25 03/21/25 buspirone 5 mg tablet 5 mg PO BID 03/21/25 03/21/25 calcium 600 mg (as 1 tab PO DAILY 03/21/25 03/21/25 carbonate)-vitamin D3 5 mcg (200 unit) tablet dulaglutide 1.5 mg/0.5 mL 1.5 mg SUBCUT Q7D 03/21/25 03/21/25 subcutaneous pen injector (Trulicity) esomeprazole magnesium 40 mg 40 mg PO BID 03/21/25 03/21/25 capsule,delayed release linaclotide 72 mcg capsule 72 mcg PO QAM 03/21/25 03/21/25 (Linzess) Previous Rx's ?Medication ?Instructions ?Recorded pen needle, diabetic 32 gauge x #100 ea 05/02/21 acetaminophen 325 mg capsule 325 mg PO Q4H PRN fever or pain 02/17/23 #60 caps polyethylene glycol 3350 17 See Rx Instructions .Route 11/16/23 gram/dose oral powder .COMPLEX #510 grams albuterol sulfate 2.5 mg/3 mL 2.5 mg (3 mL) inhalation QID PRN 12/23/23 (0.083 %) solution for nebulization shortness of breath or wheezing #180 mL albuterol sulfate 90 mcg/actuation 2 puff inhalation Q6H PRN 12/23/23 aerosol inhaler shortness of breath or wheezing #16 grams tiotropium bromide 18 mcg capsule 1 cap inhalation DAILY #90 12/23/23 with inhalation device (Spiriva inhalations with HandiHaler) mupirocin 2 % topical ointment 1 applic topical TID 7 days #15 10/01/24 (Centany) grams fluticasone propionate 50 2 spray intranasal DAILY #1 g 10/15/24 mcg/actuation nasal spray,suspension guaifenesin 600 mg tablet, 1,200 mg (2 x 600 mg) PO BID #60 10/15/24 extended release 12 hr (Mucinex) tabs folic acid 1 mg tablet 1 mg PO DAILY #30 tabs 11/21/24 hydroxychloroquine 200 mg tablet 200 mg PO BID #180 tabs 11/21/24 (Plaquenil) methotrexate sodium 25 mg/mL 15 mg (0.6 mL) IM .Q7days #10 mL 11/21/24 injection solution syringe with needle, safety 1 mL #25 ea 11/22/24 28 gauge x 1/2 (Monoject TB Safety Syringe) fluoxetine 20 mg/5 mL (4 mg/mL) 80 mg (20 mL) PO .q am #600 mL 01/11/25 oral solution diabetic shoes with 3 sets of #1 ea 03/05/25 inserts budesonide-formoterol HFA 80 2 puff inhalation BID #10.2 grams 03/15/25 mcg-4.5 mcg/actuation aerosol inhaler (Symbicort) azithromycin 200 mg/5 mL oral See Rx Instructions PO .COMPLEX 03/20/25 suspension #37.5 mL promethazine-DM 6.25 mg-15 mg/5 mL 5 ml PO Q6H PRN cough #240 mL 03/20/25 oral syrup naproxen 500 mg tablet (Naprosyn) 500 mg PO BID PRN pain #20 tabs 03/21/25 Allergies Allergy/AdvReac Type Severity Reaction Status Date / Time raspberry Allergy Severe closes up Verified 03/21/25 15:20 throat venom-wasp Allergy Severe ALGY-Anaphy Verified 03/21/25 15:20 laxis codeine Allergy ALGY-Difficulty Verified 03/21/25 15:20 Breathing Penicillins Allergy ALGY-Rash Verified 03/21/25 15:20 Sulfa (Sulfonamide Allergy ALGY-Rash Verified 03/21/25 15:20 Antibiotics) Review of Systems Card: Reports: chest pain PFSH ED PFSH: Medical History Seronegative rheumatoid arthritis of both hands Depression, major, recurrent, mild Osteoarthritis of acromioclavicular joint Obesity (BMI 30.0-34.9) Diabetes type 2, uncontrolled Tendinopathy of right shoulder Impingement of right shoulder High risk medication use DJD (degenerative joint disease) of cervical spine Polyarthralgia GERD (gastroesophageal reflux disease) Diabetes mellitus, controlled Psychiatric care YAIR (obstructive sleep apnea) Major depressive disorder, recurrent, moderate Depression COPD (chronic obstructive pulmonary disease) CVA (cerebral vascular accident) Surgical History S/P shoulder surgery Date of procedure: October 13, 2024 Pre-op diagnosis: Right shoulder impingement with resulting tendinopathy and osteoarthritis of the acromioclavicular joint Procedure done: Right acromioplasty with distal clavicle resection and bursal debridement Surgeon: Alyse Hall MD Status post cervical spinal fusion History of anterior colporrhaphy (~02/16/23) Anterior colporrhaphy augmented with allograft, single incision mid urethral sling, cystoscopy. Performed by [facility]. History of colonoscopy History of tubal ligation Hx of oophorectomy H/O laparoscopy H/O: hysterectomy History of cholecystectomy Family History Father CAD (coronary artery disease) Cancer Diabetes Hyperlipidemia Mother Hypertension Psychiatric illness Brother Hypertension Social History Smoking and tobacco/nicotine status: never used tobacco/nicotine Second hand smoke exposure: Yes Alcohol intake: current Alcohol intake frequency: holidays/special occasions only Alcohol type: other Substance/Drug Use: never Adopted: No Caregiver/support person: No Lives independently: Yes Household members: friend(s) Housing: Apartment Marital status: Number of children: 3 Number of grandchildren: 7 Highest education level completed: High School Graduate service: No Current occupational status: unemployed and other Details: daughter comes to help her Current occupational exposures/hazards: No Pets and animals: Yes (3 tiny dogs) Pets & animals: dog(s) Leisure activites: art and other Leisure activities details: watch TV Sexually active: No Do you think of yourself as: Straight/Heterosexual Current gender identity: Female Merced/Jehovah'S Witness: Oriental orthodox Special merced needs: No Agree to transfusion: No (Jehova's Witness) Female Reproductive History: Para: 3 Spontaneous abortions: Yes (X 3) Physical Exam Const: COMMON NORMALS: no acute distress, patient oriented x3 and healthy appearing HENMT: COMMON NORMALS: normocephalic and atraumatic HEAD & SCALP: normocephalic and atraumatic Eye: COMMON NORMALS: Equal, round and reactive pupils present and EOMs intact bilaterally PUPIL: Yes Equal, round and reactive pupils present Neck/C-Spine: COMMON NORMALS: full ROM and supple Chest: COMMONS NORMALS: normal inspection of the chest Resp: COMMON NORMALS: normal respiratory effort, No retractions, No use of accessory muscles and clear to auscultation bilaterally AUSCULTATION: clear to auscultation bilaterally Cardio: COMMON NORMALS: regular rate, regular rhythm and No murmurs present (Cardio) RATE: regular rate RHYTHM: regular rhythm GI: COMMON NORMALS: Normal to inspection, nondistended, normoactive bowel sounds present, Soft to palpation, non-tender and no masses PALPATION: Yes Soft to palpation Extremity: COMMON NORMALS: normal to inspection and full ROM Neuro: COMMON NORMALS: patient oriented x3, moves all extremities and no focal motor deficits Psych: COMMON NORMALS: mental status grossly normal, Normal thought process present and cooperative THOUGHT PROCESS: Normal thought process present Skin: COMMON NORMALS: no rashes or lesions noted and no wounds GENERAL SKIN EXAM: no rashes or lesions noted Course Vital Signs: Vital signs: Vital Signs Temperature 97.8 F 03/21/25 15:11 Pulse Rate 93 03/21/25 17:20 Respiratory Rate 16 03/21/25 17:20 Blood Pressure 132/80 03/21/25 17:20 Pulse Oximetry 98 03/21/25 17:20 Oxygen Delivery Me thod Nasal Cannula 03/21/25 17:20 Oxygen Flow Rate 2 03/21/25 17:20 MDM - Chest Pain Medical Decision Making Patient presents here with chest pains atypical in nature. Differential includes pulmonary embolism, ACS, aortic dissection. Patient had a CT scan done outpatient that was read by the radiologist showed no acute abnormalities. Patient has no signs of pulm embolism here. She has had cough congestion recently no pneumonia but likely has pleuritic chest pain. Her EKG here was normal with normal sinus rhythm heart rate [address] elevation QRS 85 QTc 382. I did review her chest x-ray that showed no acute abnormalities. Initial repeat troponins here are negative. Her pain has improved here. I went over all these results with her she is to follow-up with her PCP in 2 to 4 days return if worsening she understands agrees to plan Medical Records I reviewed the patient's medical records. Lab Data I reviewed the patient's lab results. 03/21/25 15:28 03/21/25 15:28 Radiology Impressions Chest X-Ray 03/21/25 15:09 Impression: Negative chest. Laboratory Results WBC 10.94 10^3/uL (3.29-11.43) 03/21/25 15: RBC 4.94 10^6/uL (3.85-5.65) 03/21/25 15:28 Hgb 14.20 g/dL (11.27-16.99) 03/21/25 15:28 Hct 45.1 % (36-47) 03/21/25 15:28 MCV 91.3 fl (85-98) 03/21/25 15:28 MCH 28.7 pg (27-33) 03/21/25 15:28 MCHC 31.5 g/dL (30-55) 03/21/25 15:28 RDW 15.1 % (12.1-15.1) 03/21/25 15:28 Plt Count 249 10^3/cmm (157-399) 03/21/25 15: MPV 9.5 fL (7.4-10.4) 03/21/25 15:28 Neut % (Auto) 66.9 % 03/21/25 15:28 Lymph % (Auto) 22.9 % 03/21/25 15:28 [place] % (Auto) 7.1 % 03/21/25 15:28 Eos % (Auto) 2.2 % 03/21/25 15:28 Baso % (Auto) 0.7 % 03/21/25 15: Neut # (Auto) 7.31 10^3/uL (1.8-7.7) 03/21/25 15: Lymph # (Auto) 2.5 10^3/uL (0.8-4.8) 03/21/25 15: [place] # (Auto) 0.8 10^3/uL (0.2-0.9) 03/21/25: Eos # (Auto) 0.2 10^3/uL (0.0-0.8) 03/21/25 15: Baso # (Auto) 0.1 10^3/uL (0.0-0.1) 03/21/25 15: Nucleated RBC % (auto) 0 % 03/21/25 15: Nucleated RBCs # 0.0 /100WBC 03/21/25 15: PT 11.90 SECONDS (12.1-14.9) L 03/21/25 15: INR 0.82 (0.8-1.2) 03/21/25 15: Sodium 141 mmol/L (136-145) 03/21/25 15: Potassium 3.9 mmol/L (3.5-5.1) 03/21/25 15: Chloride 104 mmol/L (98-107) 03/21/25 15: Carbon Dioxide 23 mmol/L (22-29) 03/21/25 15: Anion Gap 17.9 (5-19) 03/21/25: BUN 17 mg/dL (6-20) 03/21/25 15: Creatinine 0.8 mg/dL (0.5-0.9) 03/21/25 15: GFR Calculation 75.0 mL/min (90-130) L 03/21/25 15: Glucose 119 mg/dL (65-115) H 03/21/25 15: Calculated Osmolality 295 mOsm/kg (285-295) 03/21/25 15: Calcium 9.1 mg/dL (8.5-10.5) 03/21/25 15: Total Bilirubin 0.6 mg/dL (0.15-1.2) 03/21/25 15: AST 33 U/L (0-32) H 03/21/25 15:28 ALT 33 U/L (0-33) 03/21/25 15:28 Alkaline Phosphatase 125 U/L (35-105) H 03/21/25 15:28 Troponin T Baseline < 6 ng/L (0-10) 03/21/25 15:28 Troponin T 120 Minute < 6.0 ng/L (0-10) 03/21/25 17:57 Delta Troponin T 0 ABS# (0-10) 03/21/25 17:57 NT-Pro-B Natriuret Pep < 36 pg/mL (0-125) 03/21/25 15:28 Total Protein 7.1 g/dL (6.6-8.7) 03/21/25 15:28 Albumin 4.3 g/dL (3.5-5.2) 03/21/25 15:28 Globulin 2.8 g/dL (1.3-4.6) 03/21/25 15:28 All radiology interpretation(s) finalized by discharge EKG Data EKG 1: I personally reviewed and interpreted this EKG as follows: EKG interpretation date: 03/21/25 EKG interpretation time: 15:15 Interpretation: nsr hr [address] elevation qrs 85 qtc 382 EKG 2: I personally reviewed and interpreted this EKG as follows: EKG interpretation date: 03/21/25 EKG interpretation time: 16:55 Interpretation: nsr hr [address] elevation qrs 85 qtc 387 Discharge Plan Discharge Patient Disposition: Home Clinical Impression: Atypical chest pain Condition: Stable Prescriptions: New naproxen [Naprosyn] 500 mg tablet 500 mg PO BID PRN (Reason: pain) Qty: 20 0RF No Action Spiriva with HandiHaler 18 mcg capsule, w/inhalation device 1 cap INHALATION DAILY Qty: 90 3RF Rx Instructions: puncture 1 cap using device; one dose = 2 inhalations albuterol sulfate 90 mcg/actuation HFA aerosol inhaler 2 puff inhalation Q6H PRN (Reason: shortness of breath or wheezing) Qty: 16 0RF albuterol sulfate 2.5 mg /3 mL (0.083 %) solution for nebulization 2.5 mg inhalation QID PRN (Reason: shortness of breath or wheezing) Qty: 180 2RF (DME) diabetic shoes with 3 sets of inserts See Rx Instructions .ROUTE .MEDSUPPLY Qty: 1 0RF Rx Instructions: As directed by [facility] methotrexate sodium 25 mg/mL solution 15 mg IM .Q7days Qty: 10 1RF Rx Instructions: on wednesday hydroxychloroquine [Plaquenil] 200 mg tablet 200 mg PO BID Qty: 180 1RF folic acid 1 mg tablet 1 mg PO DAILY Qty: 30 4RF mupirocin [Centany] 2 % ointment 1 applic topical TID 7 Days Qty: 15 0RF (DME) oxygen 0 .Route .MEDSUPPLY budesonide-formoterol [Symbicort] 80-4.5 mcg/actuation HFA aerosol inhaler 2 puff inhalation BID Qty: 10.2 0RF promethazine-DM 6.25-15 mg/5 mL syrup 5 ml PO Q6H PRN (Reason: cough) Qty: 240 0RF azithromycin 200 mg/5 mL suspension for reconstitution See Rx Instructions PO .COMPLEX Qty: 37.5 0RF Rx Instructions: take 12.5 mL (500 mg) by mouth today (day 1), then 6.25 mL (250 mg) daily for 4 days (days 2-5) PO she requests liquid fluoxetine 20 mg/5 mL (4 mg/mL) solution 80 mg PO .q am Qty: 600 3RF Rx Instructions: Take 80 mg daily (20 ml) once daily every morning (DME) pen needle, diabetic 32 gauge x 5/32 needle See Rx Instructions .Route Qty: 100 3RF Rx Instructions: As directed polyethylene glycol 3350 17 gram/dose powder See Rx Instructions .ROUTE .COMPLEX Qty: 510 1RF Dose Instruction: MIX 17 GRAMS OF POWDER IN 8 OUNCES OF LIQUID AND DRINK ONCE DAILY Rx Instructions: MIX 17 GRAMS OF POWDER IN 8 OUNCES OF LIQUID AND DRINK ONCE DAILY (DME) Monoject TB Safety Syringe 1 mL 28 gauge x 1/2 syringe See Rx Instructions .ROUTE .MEDSUPPLY Qty: 25 1RF Rx Instructions: As directed aspirin 81 mg Tablet,Delayed Release (Dr/Ec) 81 mg PO DAILY metformin 500 mg tablet 1,000 mg PO BID oxybutynin chloride 10 mg tablet extended release 24hr 10 mg PO DAILY acetaminophen 325 mg capsule 325 mg PO Q4H PRN (Reason: fever or pain) Qty: 60 0RF fluticasone propionate 50 mcg/actuation [place],Suspension 2 spray intranasal DAILY Qty: 1 0RF guaifenesin [Mucinex] 600 mg Tablet Extended Release 12hr 1,200 mg PO BID Qty: 60 0RF buspirone 5 mg tablet 5 mg PO BID calcium carbonate-vitamin D3 [Calcium + D] 600 mg-5 mcg (200 unit) Tablet 1 tab PO DAILY esomeprazole magnesium 40 mg capsule,delayed release(DR/EC) 40 mg PO BID Linzess 72 mcg capsule 72 mcg PO QAM Trulicity 1.5 mg/0.5 mL pen injector 1.5 mg SUBCUT Q7D Discharge Orders: Discharge ED (Routine); Ordered 03/21/25 Ordered By: Darrell Anand Referrals: Suzette Bowman FNP [Primary Care Provider, Unknown] - 4-7 days Discharge Diet: Advance as tolerated Discharge Activity: Resume usual activity Patient Instructions: Chest Pain (ED) Print Language: Cymraes Coding Level of Care Code ED Keno Writer for Chg Fwd Heart Score HEART Score Components History: Slightly Suspicous EKG: Normal Age: 45-64 yrs Risk Factors: 1 or 2 Risk Factors Troponin: Baseline Trop <16 ng/L HEART Score RESULT HEART Score: 2
[2025-03-21 15:53] LABS: Troponin(5th) Baseline < 6 ng/L (0-10)
[2025-03-21 16:09] LABS: Alanine Aminotransferase 33 U/L (0-33); Albumin Level 4.3 g/dL (3.5-5.2); Alkaline Phosphatase 125 U/L (35-105); Anion Gap 17.9 (5-19); Aspartate Amino Transferase 33 U/L (0-32); Blood Urea Nitrogen 17 mg/dL (6-20); Calcium 9.1 mg/dL (8.5-10.5); Carbon Dioxide 23 mmol/L (22-29); Chloride 104 mmol/L (98-107); Creatinine Clr Calc Pharmacy 81.9191; Globulin 2.8 g/dL (1.3-4.6); Glucose 119 mg/dL (65-115); NT Pro B Type Natriuretic Pept < 36 pg/mL (0-125); Osmolality Calculated 295 mOsm/kg (285-295); Potassium 3.9 mmol/L (3.5-5.1); Sodium 141 mmol/L (136-145); Total Protein 7.1 g/dL (6.6-8.7)
[2025-03-21 16:20] VITALS: BP 120/83; PULSE 101; RESP 16; O2SAT 96
--- NOTE | 2025-03-21 16:55 | ECG_ITS ---
[facility] [place] Test Date: 2025-03-21 Pat Name: Gale Veloz Department: Room: Gender: Female Survey Questionnaire Designer: : 1970 Requested By: Darrell Anand Order Number: [id number] Reading MD: Ace Nobles M.D. Measurements Intervals Baker Rate: 96 P: 61 MO: 176 QRS: 52 QRSD: 85 T: 46 QT: 334 QTc: 422 Interpretive Statements SINUS RHYTHM LOW QRS VOLTAGE IN PRECORDIAL LEADS [QRS DEFLECTION < 1.0 mV IN CHEST LEADS] NONSPECIFIC T-WAVE ABNORMALITY Compared to ECG 03/21/2025 15:15:52 Low QRS voltage now present T-wave abnormality still present Electronically Signed On 03-21-2025 22:56:44 CDT by Ace Nobles M.D. [email or web address]
[2025-03-21 17:20] VITALS: BP 132/80; PULSE 93; RESP 16; O2SAT 98
[2025-03-21] MEDS: ondansetron 2 mg/ML SDV 2 mL 4 MG IVP (17:26)
[2025-03-21] MEDS: morphine 4 mg/mL SDV 1 mL IVP (17:26)
[2025-03-21 18:31] LABS: Troponin 5 2HR < 6.0 ng/L (0-10); Troponin 5 2HR Delta 0 ABS# (0-10)
[2025-03-21 18:51] VITALS: BP 100/57; PULSE 96; RESP 16; O2SAT 96
== END 2025-03-21 18:52 | disposition home or self-care (01) ==
PROVIDERS: Emergency Provider Emergency Medicine; PCP Nurse Practitioner Family
DX: R07.89 Other chest pain (principal); Z79.82 Long term (current) use of aspirin; Z79.84 Long term (current) use of oral hypoglycemic drugs; Z79.85 Long-term (current) use of injectable non-insulin antidiabetic drugs; J44.9 Chronic obstructive pulmonary disease, unspecified; Z86.73 Personal history of transient ischemic attack (TIA), and cerebral infarction without residual deficits; E11.9 Type 2 diabetes mellitus without complications
CPT/HCPCS: 36415; 71045; 80053; 83880; 84484; 85025; 85610; 93005; 96374; 96375; 99285; J2270; J2405

== ENCOUNTER → 2025-04-02 10:40 | Outpatient (BNVA) | payer MEDICAID, SELFPAY ==
[2025-03-07 08:10] VITALS: BP 139/93; BMI 34.6
== END ==
PROVIDERS: PCP Nurse Practitioner Family; Referring Provider Orthopaedic Surgery; Visit Provider Anesthesiology Pain Medicine
DX: M54.2 Cervicalgia (principal)
CPT/HCPCS: 99204

== ENCOUNTER → 2025-04-05 11:02 | Outpatient (BNVA) | payer MEDICAID, SELFPAY ==
[2025-03-07 08:10] VITALS: BP 139/93; BMI 34.6
== END ==
PROVIDERS: PCP Nurse Practitioner Family; Visit Provider Internal Medicine Rheumatology
DX: M47.812 Spondylosis without myelopathy or radiculopathy, cervical region (principal); Z79.899 Other long term (current) drug therapy; M06.041 Rheumatoid arthritis without rheumatoid factor, right hand; M06.042 Rheumatoid arthritis without rheumatoid factor, left hand
CPT/HCPCS: 99214

== ENCOUNTER → 2025-04-06 09:22 | Outpatient (BNVA) | payer MEDICAID, SELFPAY ==
[2025-03-07 08:10] VITALS: BP 139/93; BMI 34.6
== END ==
PROVIDERS: PCP Nurse Practitioner Family; Visit Provider Internal Medicine
DX: J45.50 Severe persistent asthma, uncomplicated (principal); J98.4 Other disorders of lung; J42 Unspecified chronic bronchitis; M47.812 Spondylosis without myelopathy or radiculopathy, cervical region; M06.042 Rheumatoid arthritis without rheumatoid factor, left hand; M06.041 Rheumatoid arthritis without rheumatoid factor, right hand; Z79.899 Other long term (current) drug therapy; Z99.81 Dependence on supplemental oxygen; Z99.89 Dependence on other enabling machines and devices
CPT/HCPCS: 36415; 86003; 99214

== ENCOUNTER 2025-04-07 14:35 | Outpatient (CLI) | payer MEDICAID, SELFPAY ==
[2025-03-07 08:10] VITALS: BP 139/93; BMI 34.6
== END 2025-04-07 14:36 | disposition home or self-care (01) ==
LOC: RAD 04-09 11:20
PROVIDERS: PCP Nurse Practitioner Family; Visit Provider Family Medicine
DX: J02.9 Acute pharyngitis, unspecified (principal)
CPT/HCPCS: 87880

== ENCOUNTER → 2025-04-09 09:22 | Outpatient (BNVA) | payer MEDICAID, SELFPAY ==
[2025-03-07 08:10] VITALS: BP 139/93; BMI 34.6
== END ==
PROVIDERS: PCP Nurse Practitioner Family; Visit Provider Nurse Practitioner
DX: M19.011 Primary osteoarthritis, right shoulder (principal); M67.911 Unspecified disorder of synovium and tendon, right shoulder; Z47.89 Encounter for other orthopedic aftercare
CPT/HCPCS: 99214

== ENCOUNTER → 2025-04-30 12:51 | Outpatient (BNVA) | payer MEDICAID, SELFPAY ==
[2025-03-07 08:10] VITALS: BP 139/93; BMI 34.6
== END ==
PROVIDERS: PCP Nurse Practitioner Family; Visit Provider Anesthesiology Pain Medicine
DX: M54.2 Cervicalgia (principal)
CPT/HCPCS: 99214

== ENCOUNTER → 2025-05-08 13:14 | Outpatient (BNVA) | payer MEDICAID, SELFPAY ==
[2025-03-07 08:10] VITALS: BP 139/93; BMI 34.6
== END ==
PROVIDERS: PCP Nurse Practitioner Family; Visit Provider Anesthesiology Pain Medicine
DX: M79.18 Myalgia, other site (principal); M54.2 Cervicalgia
CPT/HCPCS: 20553; 99214; J1010; J3490

== ENCOUNTER 2025-05-11 08:04 | Outpatient (CLI) | payer MEDICAID, SELFPAY ==
[2025-03-07 08:10] VITALS: BP 139/93; BMI 34.6
--- NOTE | 2025-05-11 08:00 | IR_ITS ---
WS: [id number] SHOULDER ARTHROGRAM RIGHT Fluoroscopic guided right shoulder arthrogram CLINICAL INFORMATION: Right shoulder pain. ACute injury. COMPARISON: None. PROCEDURE: The procedure including risks, benefits and complications were discussed with the patient, who agreed to proceed. Using sterile technique, the patient was prepped and draped in the usual sterile fashion. After 1% lidocaine injection, using fluoroscopic guidance, a 22-gauge spinal needle was advanced into the glenohumeral joint. Approximately 13 ml of a solution containing 10 ml normal saline, 5 ml Omnipaque 240, 5 ml 1% lidocaine, and 0.1 ml gadolinium was administered. No immediate complications. FLUOROSCOPY TIME: 0min [id number] # of spot films: 2 IR/IR arthrogram shoulderRT [id number] IMPRESSION: Uncomplicated fluoroscopic-guided right shoulder arthrogram. MRI to follow.
--- NOTE | 2025-05-11 08:11 | MR_ITS ---
WS: [id number] MRI RIGHT SHOULDER ARTHROGRAM TECHNIQUE: Sagittal T2, coronal T1, T2 and proton density imaging. Axial gradient PDE imaging. CLINICAL INFORMATION: shoulder pain, acute. Pain after acute injruy COMPARISON: 08/24/2024 FINDINGS: Moderate arthritis AC joint with fluid and edema. Evidence of postoperative changes AC joint new from previous. Subacromial space has been decompressed. Trace subacromial fluid. Supraspinatus and infraspinatus appear intact with slight tendinopathy. Mild chronic thinning of the supraspinatus. Biceps tendon appears intact in the bicipital groove. Intra-articular biceps tendon appears intact although somewhat diminutive. Subscapularis tendon appears intact. Normal teres minor. Glenoid labrum is intact. No acute appearing labral tears. Normal bone marrow signal in the humerus and glenoid. Mild narrowing of the coracohumeral interval measuring 9 to 10 mm due to coracoid osteophyte formation. MR/MR shoulder RT wo/w con [id number] IMPRESSION: 1. Evidence of postoperative interval changes AC joint. Subacromial space is p reserved. Trace subacromial fluid. 2. Supraspinatus and infraspinatus appear intact with minimal tendinopathy. Mi ld chronic thinning of the supraspinatus. 3. Mild narrowing of the coracohumeral interval measuring 9 to 10 mm 4. Glenoid labrum appears intact. 5. Biceps tendon appears intact within the bicipital groove. 6. Somewhat diminutive intra-articular biceps tendon although grossly intact.
[2025-05-11] MEDS: gadobenate dimeglumine 20 mL vial 3 ML IV (09:48)
[2025-05-11] MEDS: iohexol 240 mg/mL 50 mL Btl 20 ML INTRA-ARTI (09:49)
== END 2025-05-11 08:05 | disposition home or self-care (01) ==
LOC: RAD 08:05
PROVIDERS: PCP Nurse Practitioner Family; Visit Provider Nurse Practitioner
DX: M19.011 Primary osteoarthritis, right shoulder (principal); M75.101 Unspecified rotator cuff tear or rupture of right shoulder, not specified as traumatic; M67.911 Unspecified disorder of synovium and tendon, right shoulder; Z98.890 Other specified postprocedural states; M75.31 Calcific tendinitis of right shoulder; M75.41 Impingement syndrome of right shoulder
CPT/HCPCS: 23350; 73223; 77002; A9577; J9999; Q9966

== ENCOUNTER → 2025-05-14 10:10 | Outpatient (BNVA) | payer MEDICAID, SELFPAY ==
[2025-03-07 08:10] VITALS: BP 139/93; BMI 34.6
== END ==
PROVIDERS: PCP Nurse Practitioner Family; Visit Provider Nurse Practitioner
DX: M19.011 Primary osteoarthritis, right shoulder (principal); M67.911 Unspecified disorder of synovium and tendon, right shoulder; Z98.890 Other specified postprocedural states
CPT/HCPCS: 99214

== ENCOUNTER 2025-05-15 11:12 | Outpatient (CLI) | payer MEDICAID, SELFPAY ==
[2025-03-07 08:10] VITALS: BP 139/93; BMI 34.6
--- NOTE | 2025-05-15 11:18 | MM_ITS ---
WS: [id number] BILATERAL 3D TOMOSYNTHESIS DIGITAL SCREENING MAMMOGRAPHY WITH CAD CLINICAL INFORMATION: SCREENING HISTORY: Screening mammogram. No current complaints. COMPARISON: None. TECHNIQUE: Bilateral CC and MLO views. FINDINGS: Scattered fibroglandular densities bilaterally. No suspicious focal mass, asymmetry, calcifications, or architectural distortion. No evidence of malignancy. Vascular calcifications. MM/MM scr tomosynthesis [id number] IMPRESSION: DENSITY: There are scattered areas of fibroglandular density. BI-RADS: 2 - Benign. FOLLOW UP: 1 Year Follow-up Recommend return to annual screening mammography.
== END 2025-05-15 11:13 | disposition home or self-care (01) ==
LOC: RAD 11:14
PROVIDERS: PCP Nurse Practitioner Family; Visit Provider Nurse Practitioner Family
DX: Z12.31 Encounter for screening mammogram for malignant neoplasm of breast (principal); R92.323 Mammographic fibroglandular density, bilateral breasts; R92.1 Mammographic calcification found on diagnostic imaging of breast
CPT/HCPCS: 77063; 77067

== ENCOUNTER → 2025-05-29 09:58 | Outpatient (BNVA) | payer MEDICAID, SELFPAY ==
[2025-03-07 08:10] VITALS: BP 139/93; BMI 34.6
== END ==
PROVIDERS: PCP Nurse Practitioner Family; Visit Provider Orthopaedic Surgery
DX: M54.2 Cervicalgia (principal); M79.601 Pain in right arm; Z47.89 Encounter for other orthopedic aftercare; Z98.1 Arthrodesis status
CPT/HCPCS: 99213